=== PATIENT | female | born 1945 | race Caucasian/White ===

== ENCOUNTER 2023-05-10 21:12 | Emergency (ER) | payer MEDICARE, MEDICAID, SELFPAY ==
[2023-05-10 21:14] VITALS: BP 165/100; PULSE 79; RESP 18; TEMP 36.6; O2SAT 97; BMI 27.6
--- NOTE | 2023-05-10 21:33 | CT_ITS ---
INDICATION: Kidney Stone EXAMINATION: CT ABDOMEN AND PELVIS WITHOUT CONTRAST - CT Abdomen And Pelvis W/O Contrast Injection TECHNIQUE: Helically acquired images were obtained of the abdomen and pelvis without oral or IV contrast. A radiation dose optimization technique was used for this scan. IV Contrast dosage and agent: None. Oral contrast: None. COMPARISON: No relevant prior comparison studies available. FINDINGS: LOWER CHEST: Lung bases are clear. No cardiomegaly or pericardial effusion. Coronary artery calcifications. Posterior diaphragmatic defects, right left side with herniated fat into the thoracic cavity. LIVER: 4 mm hypodensity segment 6, periphery. Otherwise normal homogenous density throughout the liver. Size and contour. GALLBLADDER AND BILIARY TREE: 2, roughly 2 mm calcifications dependent gallbladder. No gallbladder distension or wall edema. No intra- or extrahepatic biliary ductal dilation. PANCREAS: No focal cystic or solid mass. SPLEEN: Normal size without focal cystic or solid mass. ADRENAL GLANDS: No nodules. KIDNEYS, URETERS and BLADDER: Normal renal size and position. No mass. Significant left-sided hydronephrosis from 10 mm obstructing stone proximal left ureter, ureteropelvic junction. Adjacent 4 mm stone is also present. More distally within the left ureter is a elongated ureteral stone measuring 6 mm in diameter and 1.4 cm in length. There is a nonobstructing, 12 x 10 mm stone mid left kidney and a 4 and 7 mm stone inferior pole left kidney. Moderate left-sided perinephric fatty stranding and questionable asymmetric mild left renal enlargement/edema. Right kidney shows no hydronephrosis however there is a nonobstructing, 2 mm stone mid lower pole right kidney. Bladder is unremarkable. PERITONEUM: No ascites or free air. No other fluid collection. BOWEL: No evidence of acute appendicitis. No abnormally distended bowel loops or air fluid levels. No wall thickening or mass. No focal inflammatory changes. Moderate diverticulosis sigmoid colon. LYMPH NODES: No enlarged mesenteric or retroperitoneal lymph nodes. VESSELS: Aorta is non-dilated. Moderate intimal calcifications. REPRODUCTIVE ORGANS: Absent or atrophic ABDOMINAL WALL: No discrete abdominal or pelvic wall hernia. BONES: No lytic or blastic abnormality. Moderately advanced degenerative disc and endplate changes L5-S1 and associated facet arthropathy. No severe central spinal canal stenosis suggested. CT/Abdomen/Pelvis without Cont IMPRESSION: 1. Nephrolithiasis with large, obstructing proximal and distal left ureteral stones resulting in moderate hydronephrosis, perinephric stranding density and suspected, mild asymmetric left renal edema. 2. Bilateral posterior diaphragmatic hernias with fat herniated into the thoracic cavity. No significant mass effect on the lungs. 3. Cholelithiasis without cholecystitis. 4. Diverticulosis without diverticulitis. Electronically Signed: Jamarcus Marlow DO at 23:21 EST ,
--- NOTE | 2023-05-10 21:35 | ED.VIS.GI ---
HPI HPI - GI History of Present Illness Chief Complaint: Flank Pain Narrative Narrative: 77-year-old female who denies significant past medical history although she states that she had a 19 mm right-sided kidney stone that was blasted by a urologist in [place] last year. She states that they left a kidney stone on the left. Today she began having left-sided flank pain more in her back that radiates towards the front. She denies any fevers or chills but states she became nauseated and vomited before she came. No dysuria or hematuria, although she may have had urinary frequency this morning. She states her symptoms began today, and she took an Aleve while at work which may have helped a small amount. She presents with her daughter because of the left-sided flank pain, with nausea and vomiting. No problems with bowel movements. [facility] Medical History Kidney stone Home Medications hydrocodone-acetaminophen 5-325mg 5mg-325mg 1 tab PO Q6H PRN PRN Pain 3 days #12 TABLETS 05/10/23 [Rx Last Taken Unknown] tamsulosin 0.4 mg capsule (Flomax) 0.4 mg PO QHS #10 caps 05/10/23 [Rx Last Taken Unknown] Allergy/AdvReac Type Severity Reaction Status Date / Time No Known Allergies Allergy Verified 05/10/23 21:16 Social History Smoking Status: Never smoker ROS ROS ED ROS Narrative Constitutional: No fever, no chills. HEENT: No sore throat. No neck pain. No loss of vision. No rhinorrhea. Cardiovascular: No chest pain. No palpitations. No pedal edema. Respiratory: No cough, no shortness of breath. Abdominal: No abdominal pain. Positive nausea. 1 episode of vomiting prior to arrival. No hematemesis. Genitourinary: No dysuria. No hematuria. Urinary frequency. Left-sided flank pain radiating towards front. Musculoskeletal: No myalgias. No arthralgias. Neurologic: No headaches. No dizziness. No lightheadedness. Skin: No rash. No change in color. Psychiatric: No depression. No anxiety. EXAM Physical Exam Narrative Exam Narrative: Focused physical examination reveals patient to be afebrile. Vital signs noted. Regular rate and rhythm. No murmurs, rubs, or gallops appreciated. Abdomen soft and nontender with normal active bowel sounds. No rebound, no guarding. Lungs clear to auscultation bilaterally. No CVA tenderness to percussion on the left. Neurological examination is nonfocal and nonlateralizing. Const Vital Signs: 05/10/23 21:14 Temperature 97.9 F Temperature Source Temporal Pulse Rate 79 Respiratory Rate 18 Blood Pressure 165/100 H Blood Pressure Mean 121 Pulse Ox 97 Oxygen Delivery Method Room Air MDM MDM MDM Narrative Medical decision making narrative: In the differential diagnosis is ureteral stone with ureteral colic versus diverticulitis versus musculoskeletal flank pain. Her history and physical does not necessarily support diverticulitis, and suspicion is higher for ureteral stone given her history. Patient with CBC, BMP, and UA will be checked. She declined stronger analgesics but will be given small dose of Toradol and ondansetron. IV fluids will be run at 250 mL/h. I do feel CT imaging is indicated. Urinalysis will be checked to help rule out UTI/pyelonephritis. Upon repeat examination at approximately 2310, patient is pain-free. I reviewed her laboratory work and she has a normal white count of 7.8, hemoglobin normal at 12.2, hematocrit 38.3, platelet count normal at 179. Review of her BMP shows normal sodium of 141, potassium 4.0, chloride slightly elevated at 110 which I think is nonspecific BUN elevated at 30 with a creatinine of 1.09, no prior with which to compare. Glucose is slightly elevated at 135 but she has a normal anion gap of 5. I have no concern for diabetic ketoacidosis. Urinalysis is negative for infection and negative for blood with 0-5 WBCs and 0-5 RBCs. I do not feel antibiotics are indicated. I reviewed the radiology report of the CT of the abdomen and pelvis without contrast. There are multiple stones in the left ureter causing hydronephrosis. There is a 10 mm stone at the left UPJ, with an adjacent 4 mm stone. More distal is a 6 mm diameter stone measuring 1.4 cm in length. Currently she is pain-free. I do not feel antibiotics are indicated as she does not have a urinary tract infection. I will write her a prescription for Flomax although she has multiple, lengthy stones, and for Percocet for the next 3 days. I discussed patient with Dr. Abraham with [facility] who agrees with close outpatient follow-up with Dr. Villa with whom she has an appointment later this week. I feel she can be discharged safely home with follow-up. Return instructions to the emergency department were reviewed. If she has fever, increased pain, new or worsening symptoms she should return to the emergency department. Patient is in agreement with the plan. Disposition is discharged home in stable condition. History & Record Review Discussion w/independent historian: Patient and Family Additional record(s) reviewed:: No prior records Lab Data Attestation: I reviewed the patient's lab results. Labs: Laboratory Results - last 24 hr 05/10/23 05/10/23 21:24 21:40 WBC 7.8 RBC 4.30 Hgb 12.2 Hct 38.3 MCV 89.1 MCH 28.4 MCHC 31.9 L RDW Std Deviation 45.1 H RDW Coeff of Juliana 13.9 Plt Count 179 MPV 10.1 Immature Gran % (Auto) 0.500 Neut % (Auto) 70.3 H Lymph % (Auto) 19.1 [place] % (Auto) 7.2 Eos % (Auto) 2.3 Baso % (Auto) 0.6 Absolute Neuts (auto) 5.5 Absolute Lymphs (auto) 1.49 Nucleated RBC % 0 Sodium 141 Potassium 4.0 Chloride 110 H Carbon Dioxide 26.0 Anion Gap 5 BUN 30 H Creatinine 1.09 H Estim Creat Clear Calc 37.92 Est GFR (MDRD) Af Amer 63 Est GFR (MDRD) Non-Af 52 L BUN/Creatinine Ratio 27.5 H Glucose 135 H Calcium 9.6 Urine Color Yellow Urine Clarity Cloudy Urine pH 7.0 Ur Specific [place] 1.015 Urine Protein Negative Urine Glucose (UA) Normal Urine Ketones Negative Urine Occult Blood 25 H Urine Nitrite Negative Urine Bilirubin Negative Urine Urobilinogen Normal Ur Leukocyte Esterase Negative Urine RBC 0-5 SEEN Urine WBC 0-5 SEEN Ur Squamous Epith Cells 0-5 SEEN Amorphous Sediment 2+ Urine Bacteria 0 SEEN Urine Mucus 0 SEEN Radiography Diagnostic Testing: Clinical Impression(s) from Imaging Studies Abdomen/Pelvis CT 05/10/23 21:33 IMPRESSION: 1. Nephrolithiasis with large, obstructing proximal and distal left ureteral stones resulting in moderate hydronephrosis, perinephric stranding density and suspected, mild asymmetric left renal edema. 2. Bilateral posterior diaphragmatic hernias with fat herniated into the thoracic cavity. No significant mass effect on the lungs. 3. Cholelithiasis without cholecystitis. 4. Diverticulosis without diverticulitis. Electronically Signed: Jamarcus Marlow, at 23:21 EST , Discharge Plan Triage Chief Complaint: Flank Pain ED Provider: Gonzalez Yañez Dx/Rx/DC Orders Clinical Impression: Hydronephrosis with urinary obstruction due to ureteral calculus, Ureteral calculi Instructions: ED Kidney Stone w/ Colic Prescriptions: New tamsulosin [Flomax] 0.4 mg capsule 0.4 mg PO QHS Qty: 10 0RF hydrocodone-acetaminophen 5-325 mg tablet 1 tab PO Q6H PRN PRN (Reason: Pain) 3 Days Qty: 12 0RF Primary Care Provider: Care Physician,No Primary Referrals: NOT,DEFINED [Non-Staff] - Activity Restrictions/Additional Instructions: Follow-up with Dr. Villa with urology as scheduled later this week. Return with fever, increased pain, new or worsening symptoms. Disposition Disposition: Home, Self Care
[2023-05-10 21:41] LABS: Bacteria 0 SEEN /hpf (None Seen); Mucous, Urine 0 SEEN /hpf (<or=2+)
[2023-05-10 21:42] LABS: Color, Urine Yellow (Yellow); Glucose, Dipstick Normal (Normal); Ketone-Dipstick Negative (Negative); Leukocyte Esterase-Dipstick Negative /ul (Negative); Nitrite-Dipstick Negative (Negative); Occult Blood-Urine 25 /ul (Negative); Protein-Dipstick Negative (Negative); Specific Gravity, Urine 1.015 (1.002-1.030); Urine Bilirubin Dipstick Negative (Negative); Urine Clarity Cloudy (Clear); Urine Urobilinogen Normal (Normal)
[2023-05-10] MEDS: Ondansetron 4 MG/2 ML Vial IV (21:42)
[2023-05-10] MEDS: Ketorolac 30 MG/ML Syringe 15 MG IV (21:42)
[2023-05-10] MEDS: 0.9% Normal Saline (1000mL) 1,000 ML 250 ML IV (21:44)
[2023-05-10 21:45] LABS: Absolute Lymphocyte Count 1.49 X10^3/uL (0.83-4.51); Absolute Neutrophil Count 5.5 X10^3/uL (2.0-7.7); Basophil# 0.05 X10^3/uL; Basophil% 0.6 % (0-1); Eosinophil# 0.18 X10^3/uL; Eosinophils% 2.3 % (0-5); Hematocrit 38.3 % (37-47); Hemoglobin 12.2 g/dL (12.0-15.0); Lymphocyte # 1.49 X10^3/ul (0.83-4.51); Lymphocyte % 19.1 % (19-41); Mean Corp Hgb Conc 31.9 g/dL (32-36); Mean Corpuscular Hgb 28.4 pg (27.0-32.0); Mean Corpuscular Volume 89.1 fL (81-99); Mean Platelet Vol. 10.1 fl (6.2-12.0); Monocyte# 0.56 X10^3/uL; Monocyte% 7.2 % (0-10); NRBC Flagged by Analyzer 0 % (0-5); Neutrophil % 70.3 % (47-70); Platelet Count 179 K/mm3 (150-450); RBC Distribution Width CV 13.9 % (11.6-14.6); RBC Distribution Width SD 45.1 fl (35.1-43.9); White Blood Count 7.8 K/mm3 (4.4-11.0)
[2023-05-10 21:51] LABS: Amorphous Sediment 2+; Red Blood Cells-Urine 0-5 SEEN /hpf (0-5); Squamous Epithelial Cells - UA 0-5 SEEN /hpf (5-10); White Blood Cells 0-5 SEEN /hpf (0-5)
[2023-05-10 21:58] LABS: Anion Gap 5 (5-15); BUN 30 mg/dL (7-18); BUN/Creat Ratio 27.5 RATIO (10-20); Calcium,Total 9.6 mg/dL (8.5-10.1); Chloride 110 mmol/L (98-107); Creatinine, Serum 1.09 mg/dL (0.55-1.02); EST Glomerular Filtration Rate 52 mL/min (>60); Est Glom Filt Rate - Afr Amer 63 mL/min (>60); Estimated Creatinine Clearance 37.92 ml/min; Glucose 135 mg/dL (74-106); Sodium Level 141 mmol/L (136-145)
[2023-05-10 23:51] VITALS: BP 142/77; PULSE 84; RESP 16; O2SAT 98
== END 2023-05-11 00:06 | disposition home or self-care (01) ==
PROVIDERS: Emergency Provider Emergency Medicine; Visit Provider Emergency Medicine
DX: N13.2 Hydronephrosis with renal and ureteral calculous obstruction (principal)
CPT/HCPCS: 74176; 80048; 81001; 85025; 96361; 96374; 96375; 99283; J7030; A4216; J2405

== ENCOUNTER → 2023-06-26 | Outpatient (CLI) | payer MEDICARE, MEDICAID, SELFPAY ==
--- NOTE | 2023-06-26 15:31 | RAD_ITS ---
EXAM: XR ABDOMEN, 1 VIEW CLINICAL INDICATION: STONES TECHNIQUE: Frontal supine view of the abdomen/pelvis. COMPARISON: 05/10/2023. FINDINGS: GASTROINTESTINAL TRACT: Mild to moderate colonic stool. Non-obstructive. No bowel or stomach distention. ORGANS: Calcific densities in the left hemiabdomen correlating with the previously demonstrated urolithiasis. One of the stones appears lower than the expected location of the kidney and/or renal pelvis and may be within the mid ureter. No organomegaly. BONES/JOINTS: Degenerative changes throughout the spine, SI joints, and bilateral hips. SOFT TISSUES: No acute pathology. VASCULATURE: Vascular calcifications. Phleboliths in the pelvis. RAD/Abdomen Single View IMPRESSION: Calcific densities in the left hemiabdomen correlating with the previously demonstrated urolithiasis. One of the stones appears lower than the expected location of the kidney and/or renal pelvis and may be within the mid ureter. Electronically Signed: Stephen Villanueva DO at 17:23 EST ,
--- OUTSIDE RECORDS SUMMARY | 2023-06-26 15:40 | XMS RPT_ITS | CCD ---
Author Name Unknown Address [address] [place] [address] Organization [facility] Care Team Providers Care Spool Sander Name Role Phone AUTUMN COHN PA-C Attending Unavailable PHYSICIAN, NONE Primary Care Unavailable No, Pcp Primary Care Provider Unavailabl e João Villa MD Unavailable [phone] Toansara ORDAZ Julianne A Unavailable [phone] João Villa MD Unavailable [phone] [facility] ORDAZ Julianne A Unavailable [phone] Suly Parker MD Primary Care Provider [phone] [facility] Primary Care Provider Unav kam Cage MD, Sandro Primary Care Provider [phone] Suly Parker MD Primary Care Provider Jasbir Hackett MD Primary Care Provider Sonny Schmitz MD Primary Care Provider Toan DO Julianne A Unavailable [phone] DEEPAK POTTS Attending Unavailable YIN, HANG Primary Care Unavailable YIN HANG Attending Unavailable YIN, HANG Primary Care Unavailable YIN, HANG Referring Unavailable NIYAH FREEMAN Attending Unavailable [facility] [facility] Primary Care Unavailable TOAN, JULIANNE Referring Unavailable YIN, HANG Primary Care Unavailable SARAH MCFARLANE Attending Unavailable YIN, HANG Primary Care Unavailable JOÃO VILLA Attending Unavailable [facility] [employer] [facility] Primary Care Unavailable TYESHA CARRASCO Attending Unavailable [facility] [employer] [facility] Primary Care Unavailable TOAN, JULIANNE Attending Unavailable TOAN, JULIANNE Admitting Unavailable SONNY SCHMITZ Primary Care Unavailable SULY PARKER Referring Unavailable SONNY SCHMITZ Attending Unavailable YIN, HANG Primary Care Unavailable TOAN, JULIANNE Referring Unavailable TOAN, JULIANNE Attending Unavailable SONNY SCHMITZ Primary Care Unavailable KEITH, GIN Referring Unavailable SONNY SCHMITZ Attending Unavailable KEITH, GIN Primary Care Unavailable KEITH, GIN Referring Unavailable MANGO AHUJA Attending Unavailable [facility] Unavailable SARAH MCFARLANE Attending Unavailable [facility], [facility] Unavailable SIDDHARTH MOSS Attending Unavailable [facility], [facility] Primary Care Unavailable MANGO AHUJA Attending Unavailable [facility], [facility] Unavailable JULIANNE JOYA Attending Unavailable [facility], [facility] Unavailable TYESHA CARRASCO Attending Unavailable LUIS ALFREDO BUTLER Attending Unavailable KIM MARTEL Admitting Unavailable REESE TAVERAS Unavailable [facility], [facility] Unavailable [facility], [facility] Unavailable JULIANNE JOYA Attending Unavailable JULIANNE JOYA Admitting Unavailable KEITH, GIN Primary Care Unavailable MANGO AHUJA Attending Unavailable Allergies Allergy Classification Reported Allergen(s) Allergy Type Date of Onset Reaction(s) Facility (20 sources) oxyCODONE Drug Allergy 07-17-2022 [facility] Medications Current Medications Medication Drug Class(es) Dates Sig (Normalized) Sig (Original) acetaminophen 325 mg / oxyCODONE hydrochloride 5 mg oral tablet (2 sources) Opioid Agonist Start: 05-25-2023 End: 05-30-2023 take 1 tablet by mouth every six hours as needed for pain oxyCODONE-acetaminop hen (Percocet) 5-325 MG tablet Indications: Kidney stone on left side Take 1 tablet by mouth every 6 hours as needed for severe pain (7-10) for up to 5 days. 15 tablet 0 05/25/2023 05/30/2023 Active B Complex-C (b complex-vitamin c) tablet (20 sources) take 1 tablet by mouth once daily B Complex-C (b complex-vitamin c) tablet Take 1 tablet by mouth daily. 0 Active Cholecalciferol (20 sources) Vitamin D Cholecalciferol (D3-1000 PO) Take by mouth. 0 Active Collagen (20 sources) COLLAGEN PO Take by mouth. 0 Active KRILL OIL PO (20 sources) KRILL OIL PO Brain e by mouth. 0 Active Magnesium (20 sources) MAGNESIUM PO Brain e by mouth. 0 Active 24 hr metoprolol succinate 50 mg extended release oral tablet (3 sources) beta-Adrenergic Kimberly Start: 07-23-2022 End: 07-23-2023 take 1 tablet by mouth once daily metoprolol succinate XL (Toprol-XL) 50 MG 24 hr tablet Take 1 tablet (50 mg) by mouth daily. Do not crush or chew. Do not start before July 23, 2022. 30 tablet 11 07/23/2022 07/23/2023 Active Multiple Vitamins-Minerals (ZINC PO) (20 sources) Multiple Vitamins-Minerals (ZINC PO) Take by mouth. 0 Active ondansetron 4 mg disintegrating oral tablet (2 sources) Serotonin-3 Receptor Antagonist Start: 05-25-2023 End: 06-01-2023 take 1 tablet by mouth every eight hours as needed for nausea and vomiting ondansetron ODT (Zofran-ODT) 4 MG disintegrating tablet Take 1 tablet (4 mg) by mouth every 8 hours as needed for nausea or vomiting for up to 7 days. 20 tablet 0 05/25/2023 06/01/2023 Active tamsulosin hydrochloride 0.4 mg oral capsule (9 sources) alpha-Adrenergic Kimberly Start: 05-11-2023 tamsulosin (Flomax) 0.4 MG 24 hr capsule Completed/Discontinued Medications Medication Drug Class(es) Dates Sig (Normalized) Sig (Original) benzonatate 200 mg oral capsule (4 sources) Non-narcotic Antitussive Start: 11-25-2022 End: 01-16-2023 take 1 capsule by mouth three times daily as needed for cough benzonatate (Tessalon) 200 MG capsule Indications: Chronic cough Take 1 capsule (200 mg) by mouth 3 times daily as needed for cough. Do not crush or chew. 42 capsule 3 11/25/2022 01/16/2023 Discontinued (Cost of medication) cephalexin 500 mg oral capsule (1 source) Cephalosporin Antibacterial Start: 05-18-2022 End: 06-29-2022 take 1 capsule by mouth once daily cephalexin (Keflex) 500 MG capsule Take 1 capsule (500 mg) by mouth daily. 30 capsule 1 05/18/2022 06/29/2022 Discontinued (Therapy completed) ferrous sulfate 325 mg oral tablet (20 sources) End: 03-06-2023 take 1 tablet by mouth once daily at breakfast ferrous sulfate 325 (65 Fe) MG tablet Take 325 mg by mouth daily (with breakfast). 0 03/06/2023 Discontinued hydrocortisone 10 mg/ml / neomycin 3.5 mg/ml / polymyxin b [id number] unt/ml otic suspension (14 sources) Aminoglycoside Antibacterial, Polymyxin-class Antibacterial, Corticosteroid Start: 11-15-2022 End: 02-14-2023 neomycin-polymyxi n-hydrocortisone (Cortisporin) 3.5-88700-2 otic suspension ibandronic acid 150 mg oral tablet (5 sources) Bisphosphonate Start: 06-08-2022 End: 09-15-2022 take 1 tablet by mouth every 30 days ibandronate (Boniva) 150 MG tablet Take 150 mg by mouth every 30 (thirty) days. 0 06/08/2022 09/15/2022 Discontinued (Reorder) oxybutynin chloride 5 mg oral tablet (1 source) Cholinergic Muscarinic Antagonist Start: 07-06-2022 End: 08-05-2022 take 1 tablet by mouth three times daily as needed for muscle spasms oxybutynin (Ditropan) 5 MG tablet Take 1 tablet (5 mg) by mouth 3 times daily as needed (urinary frequency, urgency, bladder spasms). 90 tablet 0 07/06/2022 08/05/2022 Problems Active Problems Problem Classification Problem Date Documented Da te Episodic/Chronic Cardiac dysrhythmias (20 sources) Paroxysmal atrial fibrillation; Translations: [Paroxysmal atrial fibrillation] Onset: 07-17-2022 08-05-2022 Chronic Complications of surgical procedures or medical care (1 source) Drug therapy finding; Translations: [Unspecified adverse effect of drug or medicament, initial encounter] 06-15-2023 Episodic Congestive heart failure; nonhypertensive (1 source) Diastolic heart failure; Translations: [Unspecified diastolic (congestive) heart failure] 11-24-2022 Chronic E Codes: Adverse effects of medical drugs (1 source) Terbinafine adverse reaction; Translations: [Adverse effect of antifungal antibiotics, systemically used, initial encounter] 04-05-2023 Episodic Genitourinary symptoms and ill-defined conditions (2 sources) Presence of urogenital implants; Translations: [Presence of urogenital implants] Onset: 07-17-2022 Chronic Malaise and fatigue (2 sources) Chronic fatigue, unspecified; Translations: [Chronic fatigue, unspecified] Onset: 10-25-2022 Chronic Osteoporosis (2 sources) Osteoporosis; Translations: [Age-related osteoporosis without current pathological fracture] 11-17-2022 Chronic Other and ill-defined heart disease (20 sources) Left ventricular cardiac dysfunction; Translations: [Heart disease, unspecified] Onset: 08-05-2022 08-05-2022 Chronic Other and ill-defined heart disease (2 sources) Heart disease, unspecified; Translations: [Heart disease, unspecified] Onset: 08-05-2022 Chronic Other diseases of kidney and ureters (2 sources) Hydronephrosis co-occurrent and due to calculus of kidney and ureter; Translations: [Hydronephrosis with renal and ureteral calculous obstruction] 05-24-2023 Episodic Other liver diseases (3 sources) Lesion of liver; Translations: [Liver disease, unspecified] 01-16-2023 Chronic Other liver diseases (2 sources) Liver disease, unspecified; Translations: [Liver disease, unspecified] Onset: 01-16-2023 Chronic Other lower respiratory disease (6 sources) Multiple nodules of lung; Translations: [Other nonspecific abnormal finding of lung field] 01-16-2023 Episodic Other lower respiratory disease (1 source) Chronic cough; Translations: [Chronic cough] 11-25-2022 Episodic Residual codes; unclassified (1 source) H/O: respiratory disease; Translations: [Personal history of other specified conditions] 02-27-2023 Episodic Spondylosis; intervertebral disc disorders; other back problems (3 sources) Acute low back pain; Translations: [Acute bilateral low back pain without sciatica] 01-16-2023 Episodic Unclassified (2 sources) Nephrolithiasis; Translations: [Nephrolithiasis] Onset: 05-24-2023 Unclassified (2 sources) Blood Work; Translations: [Blood Work] Onset: 03-16-2023 Unclassified (1 source) Low back pain, unspecified; Translations: [Low back pain, unspecified] Onset: 01-16-2023 Past or Other Problems Problem Classification Problem Date Documented Da te Episodic/Chronic Calculus of urinary tract (20 sources) Kidney stone; Translations: [Calculus of kidney] Onset: 05-17-2022 05-17-2022 Episodic Cardiac dysrhythmias (3 sources) Palpitations; Translations: [Palpitations] Onset: 08-05-2022 Episodic Conditions associated with dizziness or vertigo (4 sources) Benign paroxysmal positional vertigo; Translations: [Benign paroxysmal vertigo, right ear] Onset: 02-14-2023 02-14-2023 Episodic Deficiency and other anemia (2 sources) Anemia, unspecified; Translations: [Anemia, unspecified] Onset: 10-25-2022 Episodic Genitourinary symptoms and ill-defined conditions (20 sources) Dysuria; Translations: [Dysuria] Onset: 06-07-2022 Resolved: 07-29-2022 07-29-2022 Episodic Mycoses (12 sources) Onychomycosis; Translations: [Tinea unguium] Onset: 02-14-2023 02-14-2023 Episodic Other ear and sense organ disorders (20 sources) Does use hearing aid; Translations: [Presence of external hearing-aid] Onset: 07-29-2022 07-29-2022 Episodic Other ear and sense organ disorders (2 sources) Encounter for fitting and adjustment of hearing aid; Translations: [Encounter for fitting and adjustment of hearing aid] Onset: 07-29-2022 Episodic Other lower respiratory disease (7 sources) Hemoptysis; Translations: [Hemoptysis] Onset: 12-30-2022 11-16-2022 Episodic Other lower respiratory disease (2 sources) Other nonspecific abnormal finding of lung field; Translations: [Other nonspecific abnormal finding of lung field] Onset: 02-14-2023 Episodic Other lower respiratory disease (1 source) Hemoptysis; Translations: [Hemoptysis] Onset: 12-30-2022 Episodic Other nutritional; endocrine; and metabolic disorders (2 sources) Abnormal weight loss; Translations: [Abnormal weight loss] Onset: 12-30-2022 Episodic Other screening for suspected conditions (not mental disorders or infectious disease) (6 sources) Patient encounter status; Translations: [Encounter for screening for malignant neoplasm of colon] Onset: 11-16-2022 11-16-2022 Episodic Residual codes; unclassified (2 sources) Personal history of other specified conditions; Translations: [Personal history of other specified conditions] Onset: 03-06-2023 Episodic Residual codes; unclassified (2 sources) Acquired absence of other organs; Translations: [Acquired absence of other organs] Onset: 07-29-2022 Episodic Unclassified (1 source) Low back pain, unspecified; Translations: [Low back pain, unspecified] Onset: 01-16-2023 Urinary tract infections (20 sources) Recurrent urinary tract infection; Translations: [Urinary tract infection, site not specified] Onset: 05-17-2022 Resolved: 07-29-2022 06-07-2022 Episodic Results Test Name Value Interpretation Reference Range Facil ity Vital Signs Date Time Vital Sign Value Performing Clinician Faci lity 04-05-2023 15:18-0400 Body height 162.6 cm Clau Plasencia MD Work Phone: [employer] 04-05-2023 15:18-0400 Body mass index (BMI) [Ratio] 27.17 kg/m2 Clau Plasencia MD Work Phone: [facility] 04-05-2023 15:18-0400 Body temperature 97.59 [degF] Clau Plasencia MD Work Phone: [facility] 04-05-2023 15:18-0400 Body weight 71.8 kg Clau Plasencia MD Work Phone: [facility] 04-05-2023 15:18-0400 Diastolic blood pressure 75 mm[Hg] Clau Plasencia MD Work Phone: [facility] 04-05-2023 15:18-0400 Heart rate 73 /min Clau Plasencia MD Work Phone: [facility] 04-05-2023 15:18-0400 Systolic blood pressure 130 mm[Hg] Clau Plasencia MD Work Phone: [facility] 03-16-2023 15:58-0400 Body height 162.6 cm Erica Patrick MD Work Phone: [facility] 03-16-2023 15:58-0400 Body mass index (BMI) [Ratio] 27.62 kg/m2 Erica Patrick MD Work Phone: [facility] 03-16-2023 15:58-0400 Body temperature 97.7 [degF] Erica Patrick MD Work Phone: [facility] 03-16-2023 15:58-0400 Body weight 72.98 kg Erica Patrick MD Work Phone: [facility] 03-16-2023 15:58-0400 Diastolic blood pressure 64 mm[Hg] Erica Patrick MD Work Phone: [facility] 03-16-2023 15:58-0400 Heart rate 64 /min Erica Patrick MD Work Phone: [facility] 03-16-2023 15:58-0400 Systolic blood pressure 135 mm[Hg] Erica Patrick MD Work Phone: [facility] 03-06-2023 14:19-0400 Body height 163.8 cm Niyah Escalera CNP Work Phone: [facility] 03-06-2023 14:19-0400 Body mass index (BMI) [Ratio] 26.8 kg/m2 Niyah Escalera CNP Work Phone: [facility] 03-06-2023 14:19-0400 Body weight 71.94 kg Niyah Escalera CNP Work Phone: [facility] 03-06-2023 14:19-0400 Diastolic blood pressure 66 mm[Hg] Niyah Escalera CNP Work Phone: [facility] 03-06-2023 14:19-0400 Heart rate 80 /min Niyah Escalera CNP Work Phone: [facility] 03-06-2023 14:19-0400 Respiratory rate 18 /min Niyah Escalera CNP Work Phone: [facility] 03-06-2023 14:19-0400 SaO2% (BldA) [Mass fraction] 93 % Niyah Escalera CNP Work Phone: [facility] Encounters Encounter Date Encounter Type Care Provider Facility Start: 06-15-2023 Orders Only Clau seymour MD Work Phone: [facility] Infection Control Procedures Date Procedure Procedure Detail Performing Clinician Start: 02-15-2023 Us retroperitoneal real time w/image complete Julianne Stephen Toan DO Work Phone: Start: 11-30-2022 Basic metabolic panel calcium total Suly Parker MD Work Phone: Start: 08-06-2022 Ecg routine ecg w/least 12 lds w/i&r Reese Taveras MD Work Phone: Start: 07-29-2022 H/O: surgery History of right mastoidectomy Suly Parker MD Work Phone: Start: 07-29-2022 Adult depression screening assessment Mango Ahuja MD Work Phone: Plan of Treatment Date Care Activity Detail Author Start: 03-21-2024 Creatinine measurement Creatinine Le maria luz [facility] Start: 03-21-2024 Potassium measurement Potassium Leve l [facility] Start: 02-15-2024 Hepatitis A Vaccines (1 of 2 - Risk 2-dose series) Hepatitis A Vaccines (1 of 2 - Risk 2-dose series) [facility] Payers Date Payer Category Payer Unknown [id number] 2019 Medicare [id number] 2019 Private Health Insurance [id number] 1945 Unknown [id number] Social History Date Type Detail Facility Start: 06-29-2022 Tobacco smoking status NHIS Never sm oked tobacco [facility] Start: 06-29-2022 Tobacco use and exposure Smoke less tobacco non-user [facility] Start: 08-22-2022 End: 03-16-2023 Alcohol intake Lifetime non-drinker (finding) [facility] Start: 07-18-2022 End: 07-29-2022 History SDOH Alcohol Frequency 1 [facility] Start: 07-18-2022 History SDOH Alcohol Std Drinks 0 [facility] Start: 07-29-2022 History SDOH Financial 4 [facility] Start: 06-29-2022 History SDOH Transport Med 2 [facility] Start: 1945 Sex Assigned At Not on file [facility] Start: 08-12-2022 End: 03-06-2023 Exposure to SARS-CoV-2 (event) Not sure [facility] Start: 06-29-2022 End: 10-25-2022 History of Social function [facility] Start: 06-29-2022 End: 10-25-2022 Alcohol Use Disorder Identification Test - Consumption [AUDIT-C] [facility] How often to you hav e a drink containing alcohol? Monthly or less [facility] How many standard dr inks containing alcohol do you have on a typical day? 1 or 2 [facility] How often do you hav e 6 or more drinks on 1 occasion? Never [facility] How hard is it for y ou to pay for the very basics like food, housing, medical care, and heating Not very hard [facility] (I/We) worried [facility] er (my/our) food would run out before (I/we) got money to buy more. Never true [facility] In the past 12 month s, has lack of transportation kept you from medical appointments or from getting medications? No [facility] In the past 12 month s, was there a time when you were not able to pay the mortgage or rent on time? 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 unknown [facility] Medical Equipment Procedure Code Equipment Code Equipment Origin al Text Equipment Identifier Dates Stent Uret 6fr 2 4cm Wo Gw - Sn/A - [id number] Start: 07-06-2022 Stent Uret 6fr 2 4cm Wo Gw - [id number] , [id number] FDA Start: 08-16-2022 Clinical Notes 06-07-2022 to 06-15-2023 Clau Plasencia MD - 06/15/2023 11:42 AM ESTTelephone Encounter - Shital Le LPN - 06/15/2023 11:13 AM ESTTelephone Encounter - Shital Le LPN - 06/15/2023 11:13 AM ESTPatient Instructions Note Date & Type Note Facility 06-15-2023 History of Present illness Narrative Lab printed and faxed to requested location. Clau Plasencia MD 06/15/2023 11:49 AM documented in this encounter [facility] 06-15-2023 Telephone encounter Note Just order the Lab as you would for [facility] and I will print and fax. Thanks Shital Le LPN, on 06/15/23 at 11:13 AM. [facility] 06-15-2023 Miscellaneous Notes Just order the Lab as you would for [facility] and I will print and fax. Thanks Shital Le LPN, on 06/15/23 at 11:13 AM. Patient called stating that Dr. Plasencia wanted her to have Lab work done , due to taking Lamisil. Patient would like a Lab order faxed to [facility] in [place] fax no is [phone] Shital Le LPN, on 06/09/23 at 2:28 PM. documented in this encounter [facility] 06-09-2023 Telephone encounter Note Patient called stating that Dr. Plasencia wanted her to have Lab work done , due to taking Lamisil. Patient would like a Lab order faxed to [facility] in [place] fax no is [phone] Shital Le LPN, on 06/09/23 at 2:28 PM. [facility] 05-30-2023 Telephone encounter Note Spoke with pt that we are not contracted with [employer] and would be considered self pay - Pt states she is in [place] and will be follow up with [place] [facility] and did not want to schedule surgery due to insurance and distance. [facility] 05-30-2023 Miscellaneous Notes Spoke with pt that we are not contracted with [employer] and would be considered self pay - Pt states she is in [place] and will be follow up with [facility] [facility] and did not want to schedule surgery due to insurance and distance. ----- Message from João Villa MD sent at 05/24/2023 4:38 PM EST ----- Cystoscopy, left ureteroscopy, laser lithotripsy and stent documented in this encounter [facility] 05-30-2023 Telephone encounter Note ----- Message from João Villa MD sent at 05/24/2023 4:38 PM EST ----- Cystoscopy, left ureteroscopy, laser lithotripsy and stent [facility] 05-29-2023 Telephone encounter Note Daughter Gema called back to help get pt scheduled for surgery for kidney stones with DR Villa. Spoke with Nora Villa's automatic lump making machine tender who stated she will give Gema a call back. New Phone number [phone]. Routed message to Nora. [facility] 05-29-2023 Miscellaneous Notes Daughter Gema called back to help get pt scheduled for surgery for kidney stones with DR Villa. Spoke with Nora Villa's automatic lump making machine tender who stated she will give Gema a call back. New Phone number [phone]. Routed message to Nora. Pt returning a call to office. Read Aida's message verbatim to pt. Pt states she has some fatigue from traveling but overall feels fine. Pt voiced understanding to keep appt 05/24/[address] Villa in [place]. Attempted to speak to pt via telephone regarding recent visit to [place] [facility] 05/10/2023 and request for appointment 05/12/2023. Pt did not answer, and voicemail box is not setup. Please reach out to pt to see if she is doing well. Pt has appt 05/24/[address] Villa that she can keep, appt does not need to be moved up at this time. Thank you! Name of caller: Yash Contact phone number: [phone] Relationship to Patient: patient Provider: [facility]: Urology Chief Complaint/Reason for Call: patient called in stated that she should have an appointment today informed her of 05/24 appointment patient stated that was changed due to her recent time in the hospital informed I do not see another appointment for Dr. Bowman Patient would like a call back regarding appointment Best time of day caller can be reached: any Patient advised that office/PCP has 24-48 business hours to return their call: Yes documented in this encounter [facility] 05-24-2023 Note Addended by: JOÃO VILLA on: 05/25/2023 04:54 PM Modules accepted: [facility] 05-24-2023 History of Present illness Narrative Images from the original note were not included. João Villa MD 05/24/2023 at 4:41 PM Office follow up PATIENT NAME: Yash Francois DATE OF : 1945 TODAY'S DATE: 05/24/2023 CHIEF COMPLAINT: Chief Complaint Patient presents with Nephrolithiasis [address] Joya in [place] [facility] approx 2 weeks ago for stones Subjective: Ms. Francois is a 77 y.o. female who presents to the office for follow up of left ureteral and renal calculi She was in ER 2 weeks ago with flank pain and nausea She does have intermittent nausea and flank Review of Systems Constitutional: Negative for activity change, chills, fatigue and fever. Gastrointestinal: Negative for abdominal distention and abdominal pain. Genitourinary: Negative for difficulty urinating, dyspareunia, enuresis, urgency, vaginal bleeding, vaginal discharge and vaginal pain. Past Medical History: Past Medical History: Diagnosis Date Kidney stone Past Surgical History: Past Surgical History: Procedure Laterality Date COLONOSCOPY EXTRACORPOREAL SHOCK WAVE LITHOTRIPSY Left 07/06/2022 cystoscopy,retrograde pyelogram- dr. Joya HYSTERECTOMY KNEE ARTHROPLASTY Right 2015 OTHER SURGICAL HISTORY 08/16/2022 Cystoscopy with Left Ureteroscopy lithotripsy SKIN BIOPSY Allergies: Oxycodone Social History: Social History Socioeconomic History Marital status: Spouse name: Not on file Number of children: Not on file Years of education: Not on file Highest education level: Not on file Occupational History Not on file Tobacco Use Smoking status: Never Smokeless tobacco: Never Vaping Use Vaping Use: Never used Substance and Sexual Activity Alcohol use: Never Drug use: Not Currently Sexual activity: Not on file Other Topics Concern Not on file Social History Narrative Not on file Social Determinants of Health Financial Resource Strain: Low Risk (07/29/2022) Overall Financial Resource Strain (CARDIA) Difficulty of Paying Living Expenses: Not very hard Food Insecurity: No Food Insecurity (07/29/2022) Hunger Vital Sign Worried About Running Out of Food in the Last Year: Never true Ran Out of Food in the Last Year: Never true Transportation Needs: No Transportation Needs (06/29/2022) PRAPARE - Transportation Lack of Transportation (Medical): No Lack of Transportation (Non-Medical): No Physical Activity: Not on file Stress: Not on file Social Connections: Not on file Intimate Partner Violence: Not on file Housing Stability: Unknown (06/29/2022) Housing Stability Vital Sign Unable to Pay for Housing in the Last Year: No Number of Places Lived in the Last Year: Not on file Unstable Housing in the Last Year: No Family History: Medications Prior to Admission medications Medication Sig Start Date End Date Taking? Authorizing Provider B Complex-C (b complex-vitamin c) tablet Take 1 tablet by mouth daily. Yes Historical Provider, Cholecalciferol (D3-1000 PO) Take by mouth. Yes Historical Provider, COLLAGEN PO Take by mouth. Yes Historical Provider, Cyanocobalamin (B-12 PO) Take by mouth. Yes Historical Provider, KRILL OIL PO Take by mouth. Yes Historical Provider, MAGNESIUM PO Take by mouth. Yes Historical Provider, Multiple Vitamins-Minerals (ZINC PO) Take by mouth. Yes Historical Provider, terbinafine (LamISIL) 250 MG tablet Take 1 tablet (250 mg) by mouth daily. 05/18/23 06/29/23 Yes Clau Plasencia MD Vitamin E 100 units tablet Take by mouth. Yes Historical Provider, tamsulosin (Flomax) 0.4 MG 24 hr capsule 05/11/23 Historical Provider, Vitals: There were no vitals taken for this visit. Physical Exam General: alert, appears stated age, and cooperative Abdomen: soft and nondistended Back: straight, CVA tenderness absent : defer exam Labs: WBC Lab Results Component Value Date WBC 6.4 10/25/2022 BMP Lab Results Component Value Date NA 141 07/23/2022 K 3.4 (L) 07/23/2022 CL 113 (H) 07/23/2022 CO2 29 03/21/2023 BUN 24 03/21/2023 CREATININE 0.59 (L) 03/21/2023 GLUCOSE 119 (H) 03/21/2023 CALCIUM 9.9 03/21/2023 PSA No results found for: PSA UA Lab Results Component Value Date COLORU Yellow 07/18/2022 GLUCOSEU Normal 07/18/2022 UROBILINOGEN Normal 07/18/2022 BILIRUBINUR Negative 06/07/2022 Review: CT reviewed from [facility] I discussed the procedure of ureteroscopy. I discussed the risks, benefits and alternatives to this. I discussed the possible complications which could include bleeding, infection and stricture disease. I discussed the possible need for stenting. I explained the need for stent and duration will be determined at that time of surgery. A string may be left. I explained laser lithotripsy as well. I explained this and compared and contrasted it to other procedures such as ESWL and PCNL. She understands this and wishes to proceed forward. I explained the patinet about the ESWL procedure.I discussed possibility of stenting the ureter.I explained that We will try to fragment the stones with shock waves and the fragments have to pass by themselves. If stone doesnot fragment satisfactorily We may have to perform a repeat ESWL treatment or more invasive procedure to clear stone. Patient may see blood in urine and stone fragments may cause pain while passing. Sometimes the fragments donot pass and we have to perform a stenting or percutaneoous nephrostomy. The stone may harbor some infection which may exacerbate with the treatment causing UTI or sepsis. This may require IV antibiotics and admission. Rarely there is bleeding and hematoma which may require admission, blood transusion, or emergency radiologic angioembolization of kidney or removal of kidney. Patient verbalized the understanding of the above and has agreeed to undergo ESWL. Impression/Plan Diagnoses and all orders for this visit: Kidney stone on left side Dysuria Hydronephrosis with renal and ureteral calculous obstruction Will plan for left ureteroscopy and laser lithotripsy Will likely need staged surgery, and may need ESWL No follow-ups on file. João Villa MD 05/24/23 4:41 PM documented in this encounter [facility] 05-24-2023 History of Present illness Narrative Images from the original note were not included. João Villa MD 05/24/2023 at 4:41 PM Office follow up PATIENT NAME: Yash Francois DATE OF : 1945 TODAY'S DATE: 05/24/2023 CHIEF COMPLAINT: Chief Complaint Patient presents with Nephrolithiasis [address] Joya in August [place] [facility] approx 2 weeks ago for stones Subjective: Ms. Francois is a 77 y.o. female who presents to the office for follow up of left ureteral and renal calculi She was in ER 2 weeks ago with flank pain and nausea She does have intermittent nausea and flank Review of Systems Constitutional: Negative for activity change, chills, fatigue and fever. Gastrointestinal: Negative for abdominal distention and abdominal pain. Genitourinary: Negative for difficulty urinating, dyspareunia, enuresis, urgency, vaginal bleeding, vaginal discharge and vaginal pain. Past Medical History: Past Medical History: Diagnosis Date Kidney stone Past Surgical History: Past Surgical History: Procedure Laterality Date COLONOSCOPY EXTRACORPOREAL SHOCK WAVE LITHOTRIPSY Left 07/06/2022 cystoscopy,retrograde pyelogram- dr. Joya HYSTERECTOMY KNEE ARTHROPLASTY Right 2015 OTHER SURGICAL HISTORY 08/16/2022 Cystoscopy with Left Ureteroscopy lithotripsy SKIN BIOPSY Allergies: Oxycodone Social History: Social History Socioeconomic History Marital status: Spouse name: Not on file Number of children: Not on file Years of education: Not on file Highest education level: Not on file Occupational History Not on file Tobacco Use Smoking status: Never Smokeless tobacco: Never Vaping Use Vaping Use: Never used Substance and Sexual Activity Alcohol use: Never Drug use: Not Currently Sexual activity: Not on file Other Topics Concern Not on file Social History Narrative Not on file Social Determinants of Health Financial Resource Strain: Low Risk (07/29/2022) Overall Financial Resource Strain (CARDIA) Difficulty of Paying Living Expenses: Not very hard Food Insecurity: No Food Insecurity (07/29/2022) Hunger Vital Sign Worried About Running Out of Food in the Last Year: Never true Ran Out of Food in the Last Year: Never true Transportation Needs: No Transportation Needs (06/29/2022) PRAPARE - Transportation Lack of Transportation (Medical): No Lack of Transportation (Non-Medical): No Physical Activity: Not on file Stress: Not on file Social Connections: Not on file Intimate Partner Violence: Not on file Housing Stability: Unknown (06/29/2022) Housing Stability Vital Sign Unable to Pay for Housing in the Last Year: No Number of Places Lived in the Last Year: Not on file Unstable Housing in the Last Year: No Family History: Medications Prior to Admission medications Medication Sig Start Date End Date Taking? Authorizing Provider B Complex-C (b complex-vitamin c) tablet Take 1 tablet by mouth daily. Yes Historical Provider, Cholecalciferol (D3-1000 PO) Take by mouth. Yes Historical Provider, COLLAGEN PO Take by mouth. Yes Historical Provider, Cyanocobalamin (B-12 PO) Take by mouth. Yes Historical Provider, KRILL OIL PO Take by mouth. Yes Historical Provider, MAGNESIUM PO Take by mouth. Yes Historical Provider, Multiple Vitamins-Minerals (ZINC PO) Take by mouth. Yes Historical Provider, terbinafine (LamISIL) 250 MG tablet Take 1 tablet (250 mg) by mouth daily. 05/18/23 06/29/23 Yes Clau Plasencia MD Vitamin E 100 units tablet Take by mouth. Yes Historical Provider, tamsulosin (Flomax) 0.4 MG 24 hr capsule 05/11/23 Historical Provider, Vitals: There were no vitals taken for this visit. Physical Exam General: alert, appears stated age, and cooperative Abdomen: soft and nondistended Back: straight, CVA tenderness absent : defer exam Labs: WBC Lab Results Component Value Date WBC 6.4 10/25/2022 BMP Lab Results Component Value Date NA 141 07/23/2022 K 3.4 (L) 07/23/2022 CL 113 (H) 07/23/2022 CO2 29 03/21/2023 BUN 24 03/21/2023 CREATININE 0.59 (L) 03/21/2023 GLUCOSE 119 (H) 03/21/2023 CALCIUM 9.9 03/21/2023 PSA No results found for: PSA UA Lab Results Component Value Date COLORU Yellow 07/18/2022 GLUCOSEU Normal 07/18/2022 UROBILINOGEN Normal 07/18/2022 BILIRUBINUR Negative 06/07/2022 Review: CT reviewed from [place] Ureteroscopy I discussed the procedure of ureteroscopy. I discussed the risks, benefits and alternatives to this. I discussed the possible complications which could include bleeding, infection and stricture disease. I discussed the possible need for stenting. I explained the need for stent and duration will be determined at that time of surgery. A string may be left. I explained laser lithotripsy as well. I explained this and compared and contrasted it to other procedures such as ESWL and PCNL. She understands this and wishes to proceed forward. I explained the patinet about the ESWL procedure.I discussed possibility of stenting the ureter.I explained that We will try to fragment the stones with shock waves and the fragments have to pass by themselves. If stone doesnot fragment satisfactorily We may have to perform a repeat ESWL treatment or more invasive procedure to clear stone. Patient may see blood in urine and stone fragments may cause pain while passing. Sometimes the fragments donot pass and we have to perform a stenting or percutaneoous nephrostomy. The stone may harbor some infection which may exacerbate with the treatment causing UTI or sepsis. This may require IV antibiotics and admission. Rarely there is bleeding and hematoma which may require admission, blood transusion, or emergency radiologic angioembolization of kidney or removal of kidney. Patient verbalized the understanding of the above and has agreeed to undergo ESWL. Impression/Plan Diagnoses and all orders for this visit: Kidney stone on left side Dysuria Hydronephrosis with renal and ureteral calculous obstruction Will plan for left ureteroscopy and laser lithotripsy Will likely need staged surgery, and may need ESWL No follow-ups on file. João Villa MD 05/24/23 4:41 PM addendum Rx for percocet and zofran sent in documented in this encounter [facility] 05-24-2023 Miscellaneous Notes Addended by: JOÃO VILLA on: 05/25/2023 04:54 PM Modules accepted: Orders documented in this encounter [facility] 05-24-2023 Note Addended by: JOÃO VILLA on: 05/25/2023 04:54 PM Modules accepted: Orders [facility] 05-19-2023 Telephone encounter Note See documentation in the TE. [facility] 05-19-2023 Miscellaneous Notes See documentation in the TE. It is important for this patient to have her liver enzymes tested while being on this medication. Can we please have the patient scheduled for visit. Clau Plasencia MD 05/18/2023 5:43 PM Patient only has 1 dosage left Medication name: terbinafine (LamISIL) Medication dosage: 250 MG tablet Monthly quantity needed: 42 How many day supply requestin Medication route: oral (PO) Medication administration time(s): daily If taking medication PRN, reason for taking medication: N/A If this is a controlled substance do you receive this or any other controlled medication from any other doctor or facility: N/A Ordering provider: Dr Plasencia Date of last office visit: 04/05/23 Date of next office visit: 06/08/2023 Date of last refill: (see medication tab): 04/05/23 Updated/Validated preferred pharmacy: Yes Patient instructed to contact the pharmacy prior to picking up the medication: Yes documented in this encounter [facility] 05-19-2023 Telephone encounter Note Spoke with Gema and let her know the medication has been sent to the pharmacy. Also told her lab needs done and pt needs an appointment. She is not currently at home and will call back. [facility] 05-19-2023 Miscellaneous Notes Spoke with Gema and let her know the medication has been sent to the pharmacy. Also told her lab needs done and pt needs an appointment. She is not currently at home and will call back. I sent a refill to the pharmacy for this medication prior and requested an office visit so that LFTs can be monitored. Clau Plasencia MD 05/19/2023 11:01 AM S: Patient spoke with [facility] nurse regarding medication problem B: Onset of symptoms/concern last OV 04/05/23 A: Pt's daughter-Gema called concerned about running out of her medication for Toe nail fungus. Concerned about break in therapy. Labs were drawn on the day they were ordered, not able to see in EPIC. Confirmed follow up appt is 06/08/23 at 4:15pm with Dr. Ramirez. Pharmacy and allergies verified. R: Message sent to provider for review and recommendation. Attn office: please call Marta [phone] with provider's response. Patient understands care advice. No further needs at this time. Patient instructed to call back with new or worsening symptoms. Reason for Disposition [1] Caller has NON-URGENT medicine question about med that PCP prescribed AND [2] triager unable to answer question Protocols used: Medication Refill and Renewal [id number] documented in this encounter [employer] 05-19-2023 Telephone encounter Note I sent a refill to the pharmacy for this medication prior and requested an office visit so that LFTs can be monitored. Clau Plasencia MD 05/19/2023 11:01 AM [employer] Work Phone: 05-18-2023 Telephone encounter Note It is important for this patient to have her liver enzymes tested while being on this medication. Can we please have the patient scheduled for visit. Clau Plasencia MD 05/18/2023 5:43 PM [facility] 05-18-2023 Miscellaneous Notes It is important for this patient to have her liver enzymes tested while being on this medication. Can we please have the patient scheduled for visit. Clau Plasencia MD 05/18/2023 5:43 PM Patient only has 1 dosage left Medication name: terbinafine (LamISIL) Medication dosage: 250 MG tablet Monthly quantity needed: 42 How many day supply requestin Medication route: oral (PO) Medication administration time(s): daily If taking medication PRN, reason for taking medication: N/A If this is a controlled substance do you receive this or any other controlled medication from any other doctor or facility: N/A Ordering provider: Dr Plasencia Date of last office visit: 04/05/23 Date of next office visit: 06/08/2023 Date of last refill: (see medication tab): 04/05/23 Updated/Validated preferred pharmacy: Yes Patient instructed to contact the pharmacy prior to picking up the medication: Yes documented in this encounter [facility] 05-18-2023 Telephone encounter Note S: Patient spoke with [facility] nurse regarding medication problem B: Onset of symptoms/concern last OV 04/05/23 A: Pt's daughterGarrett called concerned about running out of her medication for Toe nail fungus. Concerned about break in therapy. Labs were drawn on the day they were ordered, not able to see in EPIC. Confirmed follow up appt is 06/08/23 at 4:15pm with Dr. Ramirez. Pharmacy and allergies verified. R: Message sent to provider for review and recommendation. Attn office: please call Marta [phone] with provider's response. Patient understands care advice. No further needs at this time. Patient instructed to call back with new or worsening symptoms. Reason for Disposition [1] Caller has NON-URGENT medicine question about med that PCP prescribed AND [2] triager unable to answer question Protocols used: Medication Refill and Renewal [id number] [facility] [employer] 05-16-2023 Telephone encounter Note Patient only has 1 dosage left Medication name: terbinafine (LamISIL) Medication dosage: 250 MG tablet Monthly quantity needed: 42 How many day supply requestin Medication route: oral (PO) Medication administration time(s): daily If taking medication PRN, reason for taking medication: N/A If this is a controlled substance do you receive this or any other controlled medication from any other doctor or facility: N/A Ordering provider: Dr Plasencia Date of last office visit: 04/05/23 Date of next office visit: 06/08/2023 Date of last refill: (see medication tab): 04/05/23 Updated/Validated preferred pharmacy: Yes Patient instructed to contact the pharmacy prior to picking up the medication: Yes [facility] [employer] 05-12-2023 Telephone encounter Note Pt returning a call to office. Read Aida's message verbatim to pt. Pt states she has some fatigue from traveling but overall feels fine. Pt voiced understanding to keep appt 05/24/[address] Villa in [place]. [facility] [employer] 05-12-2023 Miscellaneous Notes Pt returning a call to office. Read Aida's message verbatim to pt. Pt states she has some fatigue from traveling but overall feels fine. Pt voiced understanding to keep appt 05/24/[address] Villa in [place]. Attempted to speak to pt via telephone regarding recent visit to [place] ED 05/10/2023 and request for appointment 05/12/2023. Pt did not answer, and voicemail box is not setup. Please reach out to pt to see if she is doing well. Pt has appt 05/24/[address] Villa that she can keep, appt does not need to be moved up at this time. Thank you! Name of caller: Yash Contact phone number: [phone] Relationship to Patient: patient Provider: [facility]: [facility]rology Chief Complaint/Reason for Call: patient called in stated that she should have an appointment today informed her of 05/24 appointment patient stated that was changed due to her recent time in the hospital informed I do not see another appointment for Dr. Bowman Patient would like a call back regarding appointment Best time of day caller can be reached: any Patient advised that office/PCP has 24-48 business hours to return their call: Yes documented in this encounter [employer] 05-12-2023 Telephone encounter Note Attempted to speak to pt via telephone regarding recent visit to [place] ED 05/10/2023 and request for appointment 05/12/2023. Pt did not answer, and voicemail box is not setup. Please reach out to pt to see if she is doing well. Pt has appt 05/24/[address] Villa that she can keep, appt does not need to be moved up at this time. Thank you! [employer] Phone: 05-12-2023 Telephone encounter Note Name of caller: Yash Contact phone number: [phone] Relationship to Patient: patient Provider: [facility]: Urology Chief Complaint/Reason for Call: patient called in stated that she should have an appointment today informed her of 05/24 appointment patient stated that was changed due to her recent time in the hospital informed I do not see another appointment for Dr. Bowman Patient would like a call back regarding appointment Best time of day caller can be reached: any Patient advised that office/PCP has 24-48 business hours to return their call: Yes [facility] 05-10-2023 Telephone encounter Note Name of caller requesting page:[employer] Phone Number of caller: [phone] Facility requesting page: [place] [facility] Reason for Page: Requesting a doctor to doctor (Dr. Gonzalez Yañez) Provider paged: Dr. Abraham [facility] Name of paged provider: [facility] Page Placed to #: Secure Chat Time Page was sent or provider contacted: 11:35 pm Page Content: PAGED [facility] from [facility] for pt B. Francois 5 re doctor to doctor request (Dr. Gonzalez Yañez) [phone] [facility] 05-10-2023 Miscellaneous Notes Name of caller requesting page:[employer] Phone Number of caller: [phone] Facility requesting page: [facility] Reason for Page: Requesting a doctor to doctor (Dr. Gonzalez Yañez) Provider paged: Dr. Abraham Practice Name of paged provider: [facility] Page Placed to #: Secure Chat Time Page was sent or provider contacted: 11:35 pm Page Content: PAGED [facility] from [facility] for pt B. Francois 5. re doctor to doctor request (Dr. Gonzalez Yañez) [phone] documented in this encounter [facility] 04-05-2023 History of Present illness Narrative Patient was able to ambulate safely to the examination room. Provider was not notified of possible fall risk Pt asked if they have been to specialist,been in ER /hospitalized or had testing since last visit. no Images from the original note were not included. [facility] [address] [facility] [address] Dept: [phone] Dept Loc: [phone] Visit type: Established patient Reason for Visit: Nail Problem Assessment and Plan Comment: Patient was previously treated with terbinafine therapy with good response. Last dosage was 2 weeks ago restarting regimen for an additional 6 weeks. Follow-up l liver enzymes abs in 1 month. Plan: 1. Onychomycosis - terbinafine (LamISIL) 250 MG tablet; Take 1 tablet (250 mg) by mouth daily., arting Mon04/05/2023, Until Mon05/17/2023, Normal 2. Adverse effect of terbinafine - Hepatic function panel Patient was involved and agreeable in shared decision making. Follow up in about 1 month (around 05/06/2023) for Follow up in one month for liver panel labs and medication efficacy.. Subjective 77-year-old female presented to the [facility] for follow-up for onychomycosis treatment and liver enzyme results. Reported that terbinafine finished 2 weeks ago and this was the closest appointment that she could obtain. Since start of regimen patient is in significant improvement in the condition of her toenails. She reports that she tolerated medications with no issues. She also follows with pulmonary due to recent diagnosis of small lung nodules. Additionally she follows with renal in the setting of history of kidney stones. At the time of encounter patient denied headaches, blurred vision, dizziness, chest pain, chest tightness, abdominal pain, urinary or bowel habit changes. Patient has no other concerns for today. Review of Systems Constitutional: Negative for activity change, chills, fever and unexpected weight change. Respiratory: Negative for chest tightness and shortness of breath. Cardiovascular: Negative for leg swelling. Gastrointestinal: Negative for abdominal pain. Endocrine: Negative for cold intolerance and heat intolerance. Genitourinary: Negative for difficulty urinating. Neurological: Negative for dizziness, light-headedness and headaches. Hematological: Negative for adenopathy. Psychiatric/Behavioral: Negative for agitation. Medications reviewed Medical history reviewed Allergies reviewed Objective BP 130/75 Pulse 73 Temp 36.4 C (97.6 F) (Temporal) Ht 5' 4 (1.626 m) Wt 158 lb 4.8 oz (71.8 kg) BMI 27.17 kg/m Last 3 weights: Wt Readings from Last 3 Encounters: 04/05/23 158 lb 4.8 oz (71.8 kg) 03/16/23 160 lb 14.4 oz (73 kg) 03/06/23 158 lb 9.6 oz (71.9 kg) Last 3 BPs: BP Readings from Last 3 Encounters: 04/05/23 130/75 03/16/23 135/64 03/06/23 128/66 Last 3 HRs: Pulse Readings from Last 3 Encounters: 04/05/23 73 03/16/23 64 03/06/23 80 Physical Exam Constitutional: Appearance: Normal appearance. HENT: Head: Normocephalic and atraumatic. Eyes: Extraocular Movements: Extraocular movements intact. Conjunctiva/sclera: Conjunctivae normal. Cardiovascular: Rate and Rhythm: Normal rate and regular rhythm. Pulses: Normal pulses. Heart sounds: Normal heart sounds. No murmur heard. No friction rub. No gallop. Pulmonary: Effort: Pulmonary effort is normal. Breath sounds: Normal breath sounds. No wheezing, rhonchi or rales. Abdominal: General: Bowel sounds are normal. Musculoskeletal: Right foot: No swelling, bunion or bony tenderness. Normal pulse. Left foot: No swelling, bunion or bony tenderness. Normal pulse. Comments: Onychomycosis seen bilaterally, most prominent in the great toes and firs digit. Skin: General: Skin is warm. Capillary Refill: Capillary refill takes less than 2 seconds. Neurological: General: No focal deficit present. Mental Status: She is alert and oriented to person, place, and time. Psychiatric: Mood and Affect: Mood normal. Data Reviewed and Summarized Labs: Results for orders placed or performed in visit on 02/14/23 Comprehensive metabolic panel Result Value Ref Range GLUCOSE 119 (H) 65 - 99 mg/dL Urea Nitrogen (BUN) 24 7 - 25 mg/dL Creatinine 0.59 (L) 0.60 - 1.00 mg/dL EGFR 93 > OR = 60 mL/min/1.73m2 BUN/CREATININE RATIO 41 (H) 6 - 22 (calc) SODIUM 143 135 - 146 mmol/L POTASSIUM 4.2 3.5 - 5.3 mmol/L CHLORIDE 107 98 - 110 mmol/L Carbon Dioxide (CO2) 29 20 - 32 mmol/L CALCIUM 9.9 8.6 - 10.4 mg/dL PROTEIN, TOTAL - [facility] 6.7 6.1 - 8.1 g/dL ALBUMIN - [facility] 4.1 3.6 - 5.1 g/dL GLOBULIN - [facility] 2.6 1.9 - 3.7 g/dL (calc) ALBUMIN/GLOBULIN RATIO - [facility] 1.6 1.0 - 2.5 (calc) BILIRUBIN, TOTAL - [facility] 0.4 0.2 - 1.2 mg/dL ALKALINE PHOSPHATASE 62 37 - 153 U/L AST - [facility] 20 10 - 35 U/L ALT - [facility] 16 6 - 29 U/L Imaging/Testing: No recent imaging/testing reviewed Clau Plasencia MD [facility] 04/05/23 3:53 PM documented in this encounter [facility] 04-05-2023 History of Present illness Narrative Patient was able to ambulate safely to the examination room. Provider was not notified of possible fall risk Pt asked if they have been to specialist,been in ER /hospitalized or had testing since last visit. no Images from the original note were not included. [facility] [address] [facility] [address] Dept: [phone] Dept Loc: [phone] Visit type: Established patient Reason for Visit: Nail Problem Assessment and Plan Comment: Patient was previously treated with terbinafine therapy with good response. Last dosage was 2 weeks ago restarting regimen for an additional 6 weeks. Follow-up l liver enzymes abs in 1 month. Plan: 1. Onychomycosis - terbinafine (LamISIL) 250 MG tablet; Take 1 tablet (250 mg) by mouth daily., arting Mon04/05/2023, Until Mon05/17/2023, Normal 2. Adverse effect of terbinafine - Hepatic function panel Patient was involved and agreeable in shared decision making. Follow up in about 1 month (around 05/06/2023) for Follow up in one month for liver panel labs and medication efficacy.. Subjective 77-year-old female presented to the [facility] for follow-up for onychomycosis treatment and liver enzyme results. Reported that terbinafine finished 2 weeks ago and this was the closest appointment that she could obtain. Since start of regimen patient is in significant improvement in the condition of her toenails. She reports that she tolerated medications with no issues. She also follows with pulmonary due to recent diagnosis of small lung nodules. Additionally she follows with renal in the setting of history of kidney stones. At the time of encounter patient denied headaches, blurred vision, dizziness, chest pain, chest tightness, abdominal pain, urinary or bowel habit changes. Patient has no other concerns for today. Review of Systems Constitutional: Negative for activity change, chills, fever and unexpected weight change. Respiratory: Negative for chest tightness and shortness of breath. Cardiovascular: Negative for leg swelling. Gastrointestinal: Negative for abdominal pain. Endocrine: Negative for cold intolerance and heat intolerance. Genitourinary: Negative for difficulty urinating. Neurological: Negative for dizziness, light-headedness and headaches. Hematological: Negative for adenopathy. Psychiatric/Behavioral: Negative for agitation. Medications reviewed Medical history reviewed Allergies reviewed Objective BP 130/75 Pulse 73 Temp 36.4 C (97.6 F) (Temporal) Ht 5' 4 (1.626 m) Wt 158 lb 4.8 oz (71.8 kg) BMI 27.17 kg/m Last 3 weights: Wt Readings from Last 3 Encounters: 04/05/23 158 lb 4.8 oz (71.8 kg) 03/16/23 160 lb 14.4 oz (73 kg) 03/06/23 158 lb 9.6 oz (71.9 kg) Last 3 BPs: BP Readings from Last 3 Encounters: 04/05/23 130/75 03/16/23 135/64 03/06/23 128/66 Last 3 HRs: Pulse Readings from Last 3 Encounters: 04/05/23 73 03/16/23 64 03/06/23 80 Physical Exam Constitutional: Appearance: Normal appearance. HENT: Head: Normocephalic and atraumatic. Eyes: Extraocular Movements: Extraocular movements intact. Conjunctiva/sclera: Conjunctivae normal. Cardiovascular: Rate and Rhythm: Normal rate and regular rhythm. Pulses: Normal pulses. Heart sounds: Normal heart sounds. No murmur heard. No friction rub. No gallop. Pulmonary: Effort: Pulmonary effort is normal. Breath sounds: Normal breath sounds. No wheezing, rhonchi or rales. Abdominal: General: Bowel sounds are normal. Musculoskeletal: Right foot: No swelling, bunion or bony tenderness. Normal pulse. Left foot: No swelling, bunion or bony tenderness. Normal pulse. Comments: Onychomycosis seen bilaterally, most prominent in the great toes and firs digit. Skin: General: Skin is warm. Capillary Refill: Capillary refill takes less than 2 seconds. Neurological: General: No focal deficit present. Mental Status: She is alert and oriented to person, place, and time. Psychiatric: Mood and Affect: Mood normal. Data Reviewed and Summarized Labs: Results for orders placed or performed in visit on 02/14/23 Comprehensive metabolic panel Result Value Ref Range GLUCOSE 119 (H) 65 - 99 mg/dL Urea Nitrogen (BUN) 24 7 - 25 mg/dL Creatinine 0.59 (L) 0.60 - 1.00 mg/dL EGFR 93 > OR = 60 mL/min/1.73m2 BUN/CREATININE RATIO 41 (H) 6 - 22 (calc) SODIUM 143 135 - 146 mmol/L POTASSIUM 4.2 3.5 - 5.3 mmol/L CHLORIDE 107 98 - 110 mmol/L Carbon Dioxide (CO2) 29 20 - 32 mmol/L CALCIUM 9.9 8.6 - 10.4 mg/dL PROTEIN, TOTAL - [facility] 6.7 6.1 - 8.1 g/dL ALBUMIN - [facility] 4.1 3.6 - 5.1 g/dL GLOBULIN - [facility] 2.6 1.9 - 3.7 g/dL (calc) ALBUMIN/GLOBULIN RATIO - [facility] 1.6 1.0 - 2.5 (calc) BILIRUBIN, TOTAL - [facility] 0.4 0.2 - 1.2 mg/dL ALKALINE PHOSPHATASE 62 37 - 153 U/L AST - [facility] 20 10 - 35 U/L ALT - [facility] 16 6 - 29 U/L Imaging/Testing: No recent imaging/testing reviewed Sarah Mcfarlane MD [facility] 04/06/23 10:02 AM INDIRECT SUPERVISION THIS SERVICE IS TO BE BILLED UNDER THE PRIMARY CARE EXCEPTION ([facility] -) During or immediately after this visit, I discussed this case with the treating resident. Our discussion included the history obtained by the resident, the resident's exam findings, and the resident's treatment plan. The resident's note reflects the information we discussed, and I agree with the resident's assessment and treatment plan. documented in this encounter [facility] 03-27-2023 Note Needs appt for re-evaluation. [facility] 03-27-2023 Telephone encounter Note Patient called and scheduled an appointment on 04/05 AT 315PM [facility] 03-27-2023 Miscellaneous Notes Patient called and scheduled an appointment on 04/05 AT 315PM Needs appt for re-evaluation. Name of caller: Yash Contact phone number: [phone] Relationship to Patient: patient Provider: tiarra Oh: rony Chief Complaint/Reason for Call: Yash called stating her toe nail fungus is not cleared up and she has one pill left of the medication that he gave her. Please advise on refill or next steps . Best time of day caller can be reached: any Patient advised that office/PCP has 24-48 business hours to return their call: no documented in this encounter [facility] 03-27-2023 Telephone encounter Note Needs appt for re-evaluation. [facility] 03-27-2023 Telephone encounter Note Name of caller: Yash Contact phone number: [phone] Relationship to Patient: patient Provider: tiarra Practice: rony Chief Complaint/Reason for Call: Yash called stating her toe nail fungus is not cleared up and she has one pill left of the medication that he gave her. Please advise on refill or next steps . Best time of day caller can be reached: any Patient advised that office/PCP has 24-48 business hours to return their call: no [facility] 03-16-2023 History of Present illness Narrative Pt asked if they have been to specialist,been in ER /hospitalized or had testing since last visit. Yes lung doctor Patient was able to ambulate safely to the examination room. Provider was not notified of possible fall risk Images from the original note were not included. [facility] [address] [facility] [address] Dept: [phone] Dept Loc: [phone] Visit type: Established patient Reason for Visit: Blood Work (Went to get blood work and order was not there.) Assessment and Plan 1. Onychomycosis Comments: Will obtain CMP. Continue terbinafine for total 12 weeks. Normal liver function on initial CMP. Patient was involved and agreeable in shared decision making. Follow up in about 6 months (around 09/15/2023) for Next scheduled follow-up. Subjective Yash Francois is a 77 y.o. year old female presenting for follow-up for onychomycoses. Has not yet completed repeat CMP. Has had a toenail fungal infection for the past year. All 10 toenails were friable and discolored. Initially tried home remedies including tea tree oil however did not help. Currently treated with terbinafine for the past 4 weeks. Had a normal initial CMP. Repeat CMP placed at patient's request. No LOCKHART, vision changes, weakness. Patient was also seen at the lung nodule clinic for CT scan showing multiple nodules. Chronic smoker. States that clinic told her that her nodules were unremarkable and do not require further follow-up in their clinic. Objective BP 135/64 (BP Location: Right arm, Patient Position: Sitting) Pulse 64 Temp 36.5 C (97.7 F) (Temporal) Ht 5' 4 (1.626 m) Wt 160 lb 14.4 oz (73 kg) BMI 27.62 kg/m Physical Exam Vitals reviewed. Constitutional: Appearance: Normal appearance. HENT: Head: Normocephalic. Nose: Nose normal. Mouth/Throat: Pharynx: No oropharyngeal exudate or posterior oropharyngeal erythema. Eyes: Extraocular Movements: Extraocular movements intact. Pupils: Pupils are equal, round, and reactive to light. Cardiovascular: Rate and Rhythm: Normal rate and regular rhythm. Pulmonary: Effort: Pulmonary effort is normal. Breath sounds: Normal breath sounds. Abdominal: General: Bowel sounds are normal. Palpations: Abdomen is soft. Musculoskeletal: Right lower leg: No edema. Left lower leg: No edema. Skin: Comments: All 10 toenails with dystrophic discoloration. Neurological: Mental Status: She is alert. Erica Patrick MD [facility] 03/17/23 1:40 PM documented in this encounter [facility] 03-16-2023 History of Present illness Narrative Pt asked if they have been to specialist,been in ER /hospitalized or had testing since last visit. Yes lung doctor Patient was able to ambulate safely to the examination room. Provider was not notified of possible fall risk Images from the original note were not included. [facility] [address] [facility] [address] Dept: [phone] Dept Loc: [phone] Visit type: Established patient Reason for Visit: Blood Work (Went to get blood work and order was not there.) Assessment and Plan 1. Onychomycosis Comments: Will obtain CMP. Continue terbinafine for total 12 weeks. Normal liver function on initial CMP. Patient was involved and agreeable in shared decision making. Follow up in about 6 months (around 09/15/2023) for Next scheduled follow-up. Subjective Yash Francois is a 77 y.o. year old female presenting for follow-up for onychomycoses. Has not yet completed repeat CMP. Has had a toenail fungal infection for the past year. All 10 toenails were friable and discolored. Initially tried home remedies including tea tree oil however did not help. Currently treated with terbinafine for the past 4 weeks. Had a normal initial CMP. Repeat CMP placed at patient's request. No LOCKHART, vision changes, weakness. Patient was also seen at the lung nodule clinic for CT scan showing multiple nodules. Chronic smoker. States that clinic told her that her nodules were unremarkable and do not require further follow-up in their clinic. Objective BP 135/64 (BP Location: Right arm, Patient Position: Sitting) Pulse 64 Temp 36.5 C (97.7 F) (Temporal) Ht 5' 4 (1.626 m) Wt 160 lb 14.4 oz (73 kg) BMI 27.62 kg/m Physical Exam Vitals reviewed. Constitutional: Appearance: Normal appearance. HENT: Head: Normocephalic. Nose: Nose normal. Mouth/Throat: Pharynx: No oropharyngeal exudate or posterior oropharyngeal erythema. Eyes: Extraocular Movements: Extraocular movements intact. Pupils: Pupils are equal, round, and reactive to light. Cardiovascular: Rate and Rhythm: Normal rate and regular rhythm. Pulmonary: Effort: Pulmonary effort is normal. Breath sounds: Normal breath sounds. Abdominal: General: Bowel sounds are normal. Palpations: Abdomen is soft. Musculoskeletal: Right lower leg: No edema. Left lower leg: No edema. Skin: Comments: All 10 toenails with dystrophic discoloration. Neurological: Mental Status: She is alert. Erica Patrick MD [facility] 03/17/23 1:40 PM INDIRECT SUPERVISION THIS SERVICE IS TO BE BILLED UNDER THE PRIMARY CARE EXCEPTION ([facility]) During or immediately after this visit, I discussed this case with the treating resident. Our discussion included the history obtained by the resident, the resident's exam findings, and the resident's treatment plan. The resident's note reflects the information we discussed, and I agree with the resident's assessment and treatment plan. documented in this encounter [facility] 03-08-2023 Telephone encounter Note Pt LVM returning our call. Called pt and unable to LVM as mailbox is not set up. [facility] 03-08-2023 Miscellaneous Notes Pt LVM returning our call. Called pt and unable to LVM as mailbox is not set up. Called Yash at number listed below and there is no VM set up. Name of Caller: Yash Contact Phone Number: [phone] Reason for Appointment: Pt missed appt for 9.14 and would like to r/s appt. Please call her The appt was for *Follow up in about 6 months (around 02/22/2023) for stone follow up (KUB/CONSUELO prior). Office Name: urology Medication Refills need, if any: n/a Medication Name: n/a documented in this encounter [facility] 03-08-2023 Telephone encounter Note Called Yash at number listed below and there is no VM set up. [facility] 03-08-2023 Telephone encounter Note Name of Caller: Yash Contact Phone Number: [phone] Reason for Appointment: Pt missed appt for 9.14 and would like to r/s appt. Please call her The appt was for *Follow up in about 6 months (around 02/22/2023) for stone follow up (KUB/CONSUELO prior). Office Name: urology Medication Refills need, if any: n/a Medication Name: n/a [facility] 03-06-2023 History of Present illness Narrative [facility] [address] [address] Dept: [phone] Dept Visit type: Reason for Visit: New Patient History of Present Illness: HPI Yash Francois is a 77 y.o. female patient with significant PMH of Kidney Stones. Today, patient is fu to review and discuss CT Chest (12/2022) incidentally revealing multiple nodules in bilateral lungs measuring up to 2 mm. The imaging was completed because patient was experiencing hemoptysis. She was evaluated by PCP (11/2022) for hemoptysis and she c/o of weight loss. She is due for colonoscopy and referred to GI to completed. She completed chest xray which was negative for any acute abnormalities. She fu with PCP 01/2023 and per documentation hemoptysis resolved. Patient was referred to [facility]. There are no other images to compare. The patient reports that hemoptysis has resolved. When having hemoptysis she was coughing up it was streaks for blood. She was treated for ear infection when hemoptysis was occurring. Denies history of tobacco abuse. Denies personal history of cancer. Patient's paternal uncle had mouth cancer. Denies exposures to asbestos, radon, metals, toxic chemicals, or exotic. 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 Energy level is adequate. No night sweats or unintentional weight loss. Patient was having issues kidney stones and UTI and had weight loss. She reports sinus drainage that is triggered by sinus drainage. Denies fever/chills, wheezing, chest tightness, SOB, or chest pain. Past Medical History: Past Medical History: Diagnosis Date Kidney stone Social History: Social History Socioeconomic History Marital status: Tobacco Use Smoking status: Never Smokeless tobacco: Never Vaping Use Vaping Use: Never used Substance and Sexual Activity Alcohol use: Never Drug use: Not Currently Social Determinants of Health Financial Resource Strain: Low Risk (07/29/2022) Overall Financial Resource Strain (CARDIA) Difficulty of Paying Living Expenses: Not very hard Food Insecurity: No Food Insecurity (07/29/2022) Hunger Vital Sign Worried About Running Out of Food in the Last Year: Never true Ran Out of Food in the Last Year: Never true Transportation Needs: No Transportation Needs (06/29/2022) PRAPARE - Transportation Lack of Transportation (Medical): No Lack of Transportation (Non-Medical): No Housing Stability: Unknown (06/29/2022) Housing Stability Vital Sign Unable to Pay for Housing in the Last Year: No Unstable Housing in the Last Year: No Family History: No family history on file. ROS: Review of Systems Constitutional: Negative for activity change, fatigue and fever. HENT: Negative for congestion, postnasal drip and rhinorrhea. Respiratory: Positive for cough. Negative for chest tightness, shortness of breath and wheezing. Cardiovascular: Negative for chest pain, palpitations and leg swelling. Neurological: Negative for dizziness and headaches. Medications: @MEDCMED@ Allergies: Allergies Allergen Reactions Oxycodone Hives agitated Vital Signs: BP 128/66 (BP Location: Right arm, Patient Position: Sitting, BP Cuff Size: Adult) Pulse 80 Resp 18 Ht 5' 4.5 (1.638 m) Wt 158 lb 9.6 oz (71.9 kg) SpO2 93% Comment: RA BMI 26.80 kg/m Physical Exam: Physical Exam Vitals reviewed. Constitutional: General: She is not in acute distress. Appearance: Normal appearance. She is normal weight. HENT: Mouth/Throat: Pharynx: No oropharyngeal exudate or posterior oropharyngeal erythema. Eyes: Extraocular Movements: Extraocular movements intact. Cardiovascular: Rate and Rhythm: Regular rhythm. Heart sounds: No murmur heard. No friction rub. No gallop. Pulmonary: Effort: Pulmonary effort is normal. No accessory muscle usage, prolonged expiration or respiratory distress. Breath sounds: No stridor, decreased air movement or transmitted upper airway sounds. No decreased breath sounds, wheezing, rhonchi or rales. Comments: Lungs are clear and moving adequate air. No conversational dyspnea or respiratory distress. Chest: Chest wall: No tenderness. Neurological: Mental Status: She is alert. Assessment and Plan: Diagnosis Plan 1. Pulmonary nodules I reviewed imaging and there are multiple bilateral nodules measuring up to 2 mm. Patient is low risk and no occupational exposures. She is not experiencing any respiratory symptoms. Hemoptysis resolved. Per guidelines there is no indication to complete fu imaging. 2. History of hemoptysis Resolved. If develops again instructed to fu here or with PCP. Follow-up: Follow up if symptoms worsen or fail to improve. On this date, 03/06/2023 I have spent 25 minutes reviewing previous notes, test results and face to face with the patient discussing the diagnosis and importance of compliance with the treatment plan as well as documenting on the day of the visit. documented in this encounter [facility] 03-06-2023 Instructions Glenny Cazares MA - 03/06/2023 2:40 PM EDT YOUR APPOINTMENT TODAY WAS WITH THE [facility] LUNG [facility]ODULE [facility], COPD CLINIC, PULMONARY AND SLEEP MEDICINE OFFICE. PLEASE CALL OUR OFFICE AT [phone] IF YOU HAVE NOT RECEIVED YOUR TEST RESULTS 7 DAYS AFTER TESTING IS COMPLETED. PLEASE REMEMBER TO REQUEST REFILLS AT YOUR OFFICE VISITS. PHONE/FAX REQUESTS REQUIRE 48-72 HOURS FOR RESPONSE. A FRIENDLY REMINDER COPAYS ARE DUE AT TIME OF SERVICE. THANK YOU. Our Patients Are Important! We want to improve and you can help. After your visit we want you to feel: Listened to, Respected and have your health care explained. You may receive a survey asking you about your visit. Please complete the survey. We will use your feedback to make improvements. COVID-19 VACCINATION INFORMATION: PH. [phone] [email or web address] [facility] Central Scheduling [phone] [facility] Sleep Scheduling [phone] documented in this encounter [facility] 02-14-2023 Telephone encounter Note Returned phone call., voicemail not set up yet Gloria Anderson [facility] 02-14-2023 Miscellaneous Notes Returned phone call., voicemail not set up yet Gloria Anderson Preferred contact number: [phone] Reason for Visit: Pt started a new job and needs to cx and r/s appt for 02.23.23. Please call to r/s Urgency of Appointment: urology Medications in need of refill: n/a documented in this encounter [facility] 02-14-2023 History of Present illness Narrative Patient was able to ambulate safely to the examination room. Provider was not notified of possible fall risk Pt asked if they have been to specialist,been in ER /hospitalized or had testing since last visit. no Images from the original note were not included. [facility] [address] [facility] [address] Dept: [phone] Dept Loc: [phone] Visit type: Established patient Reason for Visit: Follow-up Assessment and Plan 1. Multiple lung nodules - [facility] 2. Benign paroxysmal positional vertigo of right ear - [facility] Physical Therapy Jany Wyatt 3. Onychomycosis - Comprehensive metabolic panel - terbinafine (LamISIL) 250 MG tablet; Take 1 tablet (250 mg) by mouth daily., Starting e 02/14/2023, Until Mon03/28/2023, Normal - CT showed multiple small lung nodule, chronic smoker. Lung nodule clinic referral sent. - BPPV, Vestibular therapy sent. - Onychomycosis, terbinafine x 6 weeks, followed by CMP in 4 weeks, normal liver function from last CMP. Patient was involved and agreeable in shared decision making. Follow up in about 6 weeks (around 03/28/2023) for onychomycosis . Subjective HPI Pt endorsed toe fungal infection for the past yr. Never asked for medical help. All 10 toes are friable and discolored. Pt also had a chronic history of vertigo with head movement. No LOCKHART, vision changes, weakness. Objective BP 121/67 Pulse 74 Temp (!) 35.8 C (96.4 F) (Temporal) Ht 5' 4.5 (1.638 m) Wt 158 lb 8 oz (71.9 kg) BMI 26.79 kg/m Physical Exam Vitals reviewed. Constitutional: Appearance: Normal appearance. HENT: Head: Normocephalic. Nose: Nose normal. Mouth/Throat: Pharynx: No oropharyngeal exudate or posterior oropharyngeal erythema. Eyes: Extraocular Movements: Extraocular movements intact. Pupils: Pupils are equal, round, and reactive to light. Cardiovascular: Rate and Rhythm: Normal rate and regular rhythm. Pulmonary: Effort: Pulmonary effort is normal. Breath sounds: Normal breath sounds. Abdominal: General: Bowel sounds are normal. Palpations: Abdomen is soft. Musculoskeletal: Right lower leg: No edema. Left lower leg: No edema. Skin: Comments: All 10 toes with dystrophic discolored nails. Neurological: Mental Status: She is alert. Sandro Cage MD [facility] 02/14/23 4:23 PM documented in this encounter [facility] 02-14-2023 History of Present illness Narrative Patient was able to ambulate safely to the examination room. Provider was not notified of possible fall risk Pt asked if they have been to specialist,been in ER /hospitalized or had testing since last visit. no Images from the original note were not included. [facility] [address] [facility] [address] Dept: [phone] Dept Loc: [phone] Visit type: Established patient Reason for Visit: Follow-up Assessment and Plan 1. Multiple lung nodules - [facility] 2. Benign paroxysmal positional vertigo of right ear - [facility] Jany Wyatt 3. Onychomycosis - Comprehensive metabolic panel - terbinafine (LamISIL) 250 MG tablet; Take 1 tablet (250 mg) by mouth daily., Starting e 02/14/2023, Until Mon03/28/2023, Normal - CT showed multiple small lung nodule, chronic smoker. Lung nodule clinic referral sent. - BPPV, Vestibular therapy sent. - Onychomycosis, terbinafine x 6 weeks, followed by CMP in 4 weeks, normal liver function from last CMP. Patient was involved and agreeable in shared decision making. Follow up in about 6 weeks (around 03/28/2023) for onychomycosis . Subjective HPI Pt endorsed toe fungal infection for the past yr. Never asked for medical help. All 10 toes are friable and discolored. Pt also had a chronic history of vertigo with head movement. No LOCKHART, vision changes, weakness. Objective BP 121/67 Pulse 74 Temp (!) 35.8 C (96.4 F) (Temporal) Ht 5' 4.5 (1.638 m) Wt 158 lb 8 oz (71.9 kg) BMI 26.79 kg/m Physical Exam Vitals reviewed. Constitutional: Appearance: Normal appearance. HENT: Head: Normocephalic. Nose: Nose normal. Mouth/Throat: Pharynx: No oropharyngeal exudate or posterior oropharyngeal erythema. Eyes: Extraocular Movements: Extraocular movements intact. Pupils: Pupils are equal, round, and reactive to light. Cardiovascular: Rate and Rhythm: Normal rate and regular rhythm. Pulmonary: Effort: Pulmonary effort is normal. Breath sounds: Normal breath sounds. Abdominal: General: Bowel sounds are normal. Palpations: Abdomen is soft. Musculoskeletal: Right lower leg: No edema. Left lower leg: No edema. Skin: Comments: All 10 toes with dystrophic discolored nails. Neurological: Mental Status: She is alert. Sandro Cage MD [facility] 02/14/23 4:23 PM Images from the original note were not included. INDIRECT SUPERVISION THIS SERVICE IS TO BE BILLED UNDER THE PRIMARY CARE EXCEPTION ([facility] -) During or immediately after this visit, I discussed this case with the treating resident. Our discussion included the history obtained by the resident, the resident's exam findings, and the resident's treatment plan. The resident's note reflects the information we discussed, and I agree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 attempts at approach: 1 Number of other approaches attempted: 0 [facility] 08-16-2022 Note Interval History and Physical I have interviewed and examined the patient and reviewed the recent History and Physical. There have been no changes to the recent H&P documentation. The patient understands the planned operation and its associated risks and benefits and agrees to proceed. The surgical consent form has been signed. BP (!) 144/74 Pulse 70 Temp 35.8 ?C (96.5 ?F) (Temporal) Resp 16 Ht 5' 4 (1.626 m) Wt 160 lb (72.6 kg) SpO2 97% BMI 27.46 kg/m? Impression: left renal and ureteral calculus and stent Plan: cysto left ureteroscopy with laser lithotripsy and stent change vs removal All aspects of the procedure, along with the pros & cons of intervention and the potential associated risks & complications have been discussed with the patient, any questions have been answered, and informed consent has been obtained. Electronically signed by @MEMDNR@ on @TDNR@ at @NOWNR@ H&P reviewed. The patient was examined and there are no changes to the H&P. [facility] 08-05-2022 History of Present illness Narrative Images from the original note were not included. [facility] Cardiology Office Note DATE of SERVICE: 08/05/22 TIME of SERVICE: 9:38 AM Reason for Visit: Chief Complaint Patient presents with Hospital Follow-up History ofPresent Illness: Yash Francois is a 76 y.o. female who presents in office today after her recent admission to [facility] 07/17/2022-07/23/2022. She had presented due to a UTI, recent kidney stone with ureteral stent, she experienced a bacteremia due to the infected stone. While admitted she was found to have gone into paroxysmal atrial fibrillation in which she is spontaneously converted to a normal sinus rhythm. Her A-fib was felt likely to be situational in the setting of her infection. It was decided not to initiate oral anticoagulation. She was initiated on Toprol XL 50 mg daily. While admitted she had an echocardiogram which documented a moderately reduced EF measured 40%, no significant valvular disease or wall motion abnormalities. This reduced EF was assessed while patient was infectious. I have ordered a repeat limited echo in 6 weeks for reassessment of her LV function when she has recovered from her UTI. She has been maintaining a normal sinus rhythm, denies symptoms of palpitations, shortness of breath, she tells me her energy continues to improve. She continues on antibiotics. She is well compensated. Past Medical History: Past Medical History: Diagnosis Date Kidney stone Past Surgical History Past Surgical History: Procedure Laterality Date COLONOSCOPY EXTRACORPOREAL SHOCK WAVE LITHOTRIPSY Left 07/06/2022 cystoscopy,retrograde pyelogram- dr. Joya HYSTERECTOMY KNEE ARTHROPLASTY Right 2016 SKIN BIOPSY Family History No family history on file. Social History Social History Tobacco Use Smoking status: Never Smokeless tobacco: Never Vaping Use Vaping Use: Never used Substance Use Topics Alcohol use: Never Drug use: Not Currently Allergies: Allergies Allergen Reactions Oxycodone Hives agitated Medications: Current Outpatient Medications: ibandronate (Boniva) 150 MG tablet, Take 150 mg by mouth every 30 (thirty) days., Disp: , Rfl: metoprolol succinate XL (Toprol-XL) 50 MG 24 hr tablet, Take 1 tablet (50 mg) by mouth daily. Do not crush or chew. Do not start before July 23, 2022., Disp: 30 tablet, Rfl: 11 COLLAGEN PO, Take by mouth., Disp: , Rfl: Cyanocobalamin (B-12 PO), Take by mouth., Disp: , Rfl: ferrous sulfate 325 (65 Fe) MG tablet, Take 325 mg by mouth daily (with breakfast)., Disp: , Rfl: MAGNESIUM PO, Take by mouth., Disp: , Rfl: Multiple Vitamins-Minerals (ZINC PO), Take by mouth., Disp: , Rfl: oxybutynin (Ditropan) 5 MG tablet, Take 1 tablet (5 mg) by mouth 3 times daily as needed (urinary frequency, urgency, bladder spasms). (Patient not taking: Reported on 08/05/2022), Disp: 90 tablet, Rfl: 0 tamsulosin (Flomax) 0.4 MG 24 hr capsule, Take 1 capsule (0.4 mg) by mouth daily. (Patient not taking: Reported on 08/05/2022), Disp: 30 capsule, Rfl: 2 Review of Systems: Review of Systems Constitutional: Negative for activity change, chills, diaphoresis, fatigue and fever. Pt states she is feeling improved, energy is slowly improving HENT: Negative for nosebleeds and trouble swallowing. Eyes: Negative for discharge and visual disturbance. Respiratory: Negative for apnea, cough, chest tightness, shortness of breath and wheezing. Denies SOB Cardiovascular: Negative for chest pain, palpitations and leg swelling. Denies chest pain or palpitations Gastrointestinal: Negative for abdominal distention, abdominal pain, blood in stool, diarrhea, nausea and vomiting. Endocrine: Negative for cold intolerance and heat intolerance. Genitourinary: Negative for hematuria. Musculoskeletal: Negative for gait problem and myalgias. Skin: Negative for color change and rash. Neurological: Negative for dizziness, seizures, syncope, facial asymmetry, speech difficulty, weakness, light-headedness, numbness and headaches. Hematological: Does not bruise/bleed easily. Psychiatric/Behavioral: Negative for dysphoric mood. Physical Examination: Vitals: BP 114/70 (BP Location: Left arm, Patient Position: Sitting, BP Cuff Size: Adult) Pulse 72 Resp 14 Ht 5' 4.5 (1.638 m) Wt 160 lb (72.6 kg) BMI 27.04 kg/m Body mass index is 27.04 kg/m . Physical Exam Constitutional: Appearance: Normal appearance. Comments: Pt is well compensated HENT: Head: Normocephalic. Nose: Nose normal. Eyes: General: Right eye: No discharge. Left eye: No discharge. Cardiovascular: Rate and Rhythm: Normal rate and regular rhythm. Heart sounds: No murmur heard. Comments: Regular, no murmer's present on exam Pulmonary: Effort: Pulmonary effort is normal. Breath sounds: Normal breath sounds. No wheezing or rales. Comments: Clear t/o Abdominal: General: There is no distension. Palpations: Abdomen is soft. Musculoskeletal: Right lower leg: No edema. Left lower leg: No edema. Comments: BLE are nonedematous Skin: General: Skin is warm and dry. Findings: No rash. Neurological: Mental Status: She is alert and oriented to person, place, and time. Psychiatric: Mood and Affect: Mood normal. Laboratory Tests: Lab Results Component Value Date GLUCOSE 100 07/23/2022 CALCIUM 9.0 07/23/2022 NA 141 07/23/2022 K 3.4 (L) 07/23/2022 CO2 24 07/23/2022 CL 113 (H) 07/23/2022 BUN 8 07/23/2022 CREATININE 0.48 (L) 07/23/2022 @LASTCMP@ No results found for: CHLPL, CHOL No results found for: TRIG No results found for: HDL No results found for: LDLCALC No results found for: VLDL No results found for: CHOLHDLRATIO Other Testing: Cardiac Tests: Echo (date: 07/19/2022): Left Ventricle: Left ventricle size is normal. Normal wall thickness. Moderately reduced left ventricular systolic function. The EF by visual approximation is 40%. Normal wall motion. Grade II diastolic dysfunction with increased LAP. Right Ventricle: Right ventricle size is normal. Normal systolic function. No significant valvular abnormalities. Technically difficult study. Assessment and Plan: 1. Paroxysmal atrial fibrillation-maintaining a normal sinus rhythm. It was felt her A-fib while admitted was likely situational in the setting of a UTI and bacteremia -If she were to have recurrent A-fib, would consider initiation of oral anticoagulation -She continues on Toprol XL 50 mg daily. 2. LV dysfunction-moderately reduced EF of 40% per echo July 19, completed well infectious and being treated for UTI-has been well compensated. I have ordered a repeat limited echo in 6 weeks for reassessment of her LV function -Continues on Toprol XL 50 mg daily. 3. Follow-up-3 months and as needed. Siddharth Moss APRN/ASSISTANT MANAGER PT documented in this encounter [facility] 08-05-2022 Miscellaneous Notes Addended by: SUZANNE LEROY on: 09/30/2022 09:37 AM Modules accepted: Orders documented in this encounter [facility] 08-05-2022 Note Addended by: SUZANNE SKINNER on: 09/30/2022 09:37 AM Modules accepted: Orders [facility] 07-29-2022 Note Patient: Yash forde Procedure Information Date/Time: 08/02/22 1200 Procedures: CYSTOSCOPY AND RETROGRADE PYELOGRAM, LEFT URETEROSCOPY LASER LITHOTRIPSY, LEFT URETERAL STENT CHANGE (Urethra) CYSTOSCOPY WITH URETEROSCOPY AND OR PYELOSCOPY WITH REMOVAL OR MANIPULATION CALCULUS WITH LITHOTRIPSY (Urethra) CYSTOSCOPY WITH INSERTION URETERAL STENT (Urethra) Location: [facility] OR [address] [place] [address] Operating Room Surgeons: Julianne Joya, DO Relevant Problems Cardio (+) Paroxysmal atrial fibrillation (CMS/HCC) (HCC) /Renal (+) Kidney stone on left side Past Medical History: Past Medical History: No date: Kidney stone Past Surgical History: Past Surgical History: No date: COLONOSCOPY 07/06/2022: EXTRACORPOREAL SHOCK WAVE LITHOTRIPSY; Left Comment: cystoscopy,retrograde pyelogram- dr. Joya No date: HYSTERECTOMY 2016: KNEE ARTHROPLASTY; Right No date: SKIN BIOPSY Social History: TOBACCO: reports that she has never smoked. She has never used smokeless tobacco. ETOH: reports no history of alcohol use. Social History Substance and Sexual Activity Drug Use Not Currently Family History: No family history on file. Screening: Hysterectomy Clinical information reviewed: Physical Exam Airway Mallampati: II TM distance: >3 FB Neck ROM: limited Mouth Open: normalendotracheal tube not in place Cardiovascular Dental Pulmonary Abdominal Anesthesia Plan ASA 3 general (Echo 07/17/2022 ? ? Left?Ventricle: Left ventricle size is normal. Normal wall thickness. Moderately reduced left ventricular systolic function. The EF by visual approximation is 40%. Normal wall motion. Grade II diastolic dysfunction with increased LAP. ? Right?Ventricle: Right ventricle size is normal. Normal systolic function. ? No significant valvular abnormalities. ? Technically difficult study. Previous OR 07/06 J[facility]ani No PAT) The patient is not a current smoker. Anesthetic plan and risks discussed with patient. patient is NPO Short ERAS BLAYNE Screening Labs: Lab Results Component Value Date WBC 5.8 07/23/2022 HGB 10.8 (L) 07/23/2022 HCT 32.7 (L) 07/23/2022 MCV 84.1 07/23/2022 PLT 177 07/23/2022 Lab Results Component Value Date NA 141 07/23/2022 K 3.4 (L) 07/23/2022 CL 113 (H) 07/23/2022 CO2 24 07/23/2022 BUN 8 07/23/2022 CREATININE 0.48 (L) 07/23/2022 GLUCOSE 100 07/23/2022 CALCIUM 9.0 07/23/2022 PROT 6.9 07/17/2022 ALKPHOS 75 07/17/2022 AST 26 07/17/2022 ALT 15 07/17/2022 EGFR >90.0 07/23/2022 Transthoracic echocardiogram (TTE) complete with contrast, bubble, strain, and 3D PRN Result Date: 07/19/2022 ? Left?Ventricle: Left ventricle size is normal. Normal wall thickness. Moderately reduced left ventricular systolic function. The EF by visual approximation is 40%. Normal wall motion. Grade II diastolic dysfunction with increased LAP. ? Right?Ventricle: Right ventricle size is normal. Normal systolic function. ? No significant valvular abnormalities. ? Technically difficult study. 07/17/22 ECG 12-LEAD 07/21/2022 10:10 AM (Final) Impression SINUS RHYTHM PROBABLE LEFT ATRIAL ABNORMALITY LVH WITH IVCD AND SECONDARY REPOL ABNRM CONSIDER ANTEROSEPTAL INFARCT Electronically Signed On 07-21-2022 10:10:18 EST by Jared Vickers Signed by: Jared Vickers MD on 07/21/2022 10:10 AM [facility] 07-23-2022 Note [facility] Hospitalist Discharge Summary Yash Francois : 1945 Admit date: 07/17/2022 Discharge date: 07/23/2022 Admitting Physician: Kim Martel MD Primary Care Physician: Pcp No (Inactive) Visit Status: Admission Code Status: Full Code Discharge Diagnoses: Left-sided nephrolithiasis with recent ureteral stent Proteus mirabilis UTI due to infected stone and bacteremia Severe sepsis due to above- high grade fever, tachycardia Osteoporosis Iron deficiency anemia Vitamin B12 deficiency Paroxysmal atrial fibrillation with frequent PVCs Procedures: None Hospital Course: Patient is a 76-year-old female who recently had lithotripsy and left ureteral stent placement admitted for fever chills and nausea. He has Proteus mirabilis UTI/infected stone and bacteremia associated with sepsis, admitted and treated with antibiotics and tailored to sensitivities of the urine. Urology followed the patient while in the hospital, patient had atrial fibrillation with rapid ventricular response, Lopressor was switched to Toprol, given IV fluids, encouraged oral intake, clinically improved, will continue antibiotic, will see the urologist as outpatient. Consults: Urology and cardiology Discharge Instructions: Diet: Adult diet Regular Activity: as tolerated Recommended Outpatient Tests: Disposition: Patient discharged in stable condition to Home. Greater than 30 minutes spent discharging the patient and coming up with patient discharge plan. Vitals: BP 119/75 (BP Location: Left arm, Patient Position: Lying) Pulse 74 Temp 36.9 ?C (98.4 ?F) (Temporal) Resp 18 Ht 5' 4 (1.626 m) Wt 161 lb (73 kg) SpO2 94% BMI 27.64 kg/m? Pulse Ox: SpO2 Av.5 % Min: 93 % Max: 94 % Supplemental O2: O2 Flow Rate (L/min): 2 L/min General appearance: No apparent distress, appears stated age and cooperative with exam Respiratory: Normal respiratory effort. Clear to auscultation, bilaterally without Rales/Wheezes/Rhonchi. Cardiovascular: irregular rate and rhythm with normal S1/S2 without murmurs, rubs or gallops. Abdomen: Soft, non-tender, non-distended with normal bowel sounds. No rebound or guarding. Musculoskeletal: No clubbing, cyanosis or edema bilaterally. Full range of motion without deformity. Skin: Skin color, texture, turgor normal. No rashes or lesions. Discharge Medications: Medication List START taking these medications cephalexin 500 MG capsule Commonly known as: Keflex Take 2 capsules (1,000 mg) by mouth 3 times daily for 10 days. metoprolol succinate XL 50 MG 24 hr tablet Commonly known as: Toprol-XL Take 1 tablet (50 mg) by mouth daily. Do not crush or chew. Do not start before July 23, 2022. oxybutynin 5 MG tablet Commonly known as: Ditropan Take 1 tablet (5 mg) by mouth 3 times daily as needed (urinary frequency, urgency, bladder spasms). CONTINUE taking these medications B-12 PO COLLAGEN PO ferrous sulfate 325 (65 Fe) MG tablet ibandronate 150 MG tablet Commonly known as: Boniva MAGNESIUM PO phenazopyridine 200 MG tablet Commonly known as: Pyridium Take 1 tablet (200 mg) by mouth 3 times daily as needed (burning with urination, urinary discomfort) for up to 10 days. tamsulosin 0.4 MG 24 hr capsule Commonly known as: Flomax Take 1 capsule (0.4 mg) by mouth daily. ZINC PO STOP taking these medications docusate sodium 100 MG capsule Commonly known as: Colace oxyCODONE 5 MG immediate release tablet Commonly known as: Roxicodone Where to Get Your Medications These medications were sent to [id number] - [facility] [address] [id number] cephalexin 500 MG capsule metoprolol succinate XL 50 MG 24 hr tablet phenazopyridine 200 MG tablet Recommended Follow-up: Siddharth Moss, STONE SPLITTER - ASSISTANT MANAGER PT [address], [address] [place] [address] Follow up on 08/05/2022 follow up hospital Cardiology appointment at 9:00 am. Complexity of Follow up: [] Moderate Complexity: follow up within 7-14 calendar days (29589) [x] Severe Complexity: follow up within 7 calendar days (77049) Follow up Testing, Pending results or Referrals at Transitional Care Visit: [x] yes [] No GENERAL ZONES GREEN ZONE: All Clear- Your Symptoms Are Under Control No recurrence of symptoms that led to hospitalization Able to do usual activities No fever No chest pain No shortness of breath This Means You Should: Continue taking your medications as prescribed Continue activity as tolerated Keep all doctor appointments YELLOW ZONE: Caution Recurrence of symptoms that led to hospitalization Fever of 100 degrees or higher Increased fatigue or restlessness Intolerant side-effects of medications Uneasy feeling or that something is wrong This Means You Should: Call your doctor for further instructions E (more content not included)... [facility] 07-22-2022 Note [facility] Hospitalist Progress Note 07/23/2022 Subjective: Admit Date: 07/17/2022 PCP: Pcp No (Inactive) Room#: B1-156/B1-156 A Interval History: Patient denies any flank pain, has few episodes of loose watery stools, CDIFF test ordered. Adult diet Regular @[id number]@ 24HR INTAKE/OUTPUT: No intake or output data in the 24 hours ending 07/23/22 1101 Past Medical History: Past Medical History: Diagnosis Date Kidney stone LABS: CBC: Recent Labs 07/21/2242107/22/22 0505 07/23/22 023 WBC 5.0 5.1 5.8 RBC 3.52* 3.62* 3.88 HGB 9.8* 10.1* 10.8* HCT 29.6* 30.3* 32.7* MCV 84.1 83.6 84.1 RDW 14.0 14.3 14.2 PLT 135* 144 177 BMP: Recent Labs 07/21/22 04207/22/22 0505 07/23/22 0231 NA 139 140 141 K 3.3* 3.6 3.4* CL 114* 116* 113* CO2 22 24 24 BUN 10 9 8 CREATININE 0.49* 0.50* 0.48* GLUCOSE 97 101* 100 CALCIUM 7.8* 8.2* 9.0 ANIONGAP 2* 0* 3 LIVER PROFILE:No results for input(s): AST, ALT, BILITOT, ALKPHOS, PROT in the last 72 hours. No lab exists for component: LABALBU PT/INR: No results for input(s): PROTIME, INR in the last 72 hours. CARDIAC ENZYMES: No results for input(s): TROPONINI in the last 72 hours. Procalcitonin: No results found for: PROCAL COVID-19 PCR: No results for input(s): COVID19 in the last 72 hours. Objective: Vitals: BP 119/75 (BP Location: Left arm, Patient Position: Lying) Pulse 74 Temp 36.9 ?C (98.4 ?F) (Temporal) Resp 18 Ht 5' 4 (1.626 m) Wt 161 lb (73 kg) SpO2 94% BMI 27.64 kg/m? Pulse Ox: SpO2 Av.5 % Min: 93 % Max: 94 % Supplemental O2: O2 Flow Rate (L/min): 2 L/min General appearance: No apparent distress, appears stated age and cooperative with exam HEENT: Normal cephalic, atraumatic without obvious deformity. Pupils equal, round, and reactive to light. Extra ocular muscles intact. Conjunctivae/corneas clear. Neck: Supple, with full range of motion. No jugular venous distention. Trachea midline. No lymphadenopathy. Respiratory: Normal respiratory effort. Clear to auscultation, bilaterally without Rales/Wheezes/Rhonchi. Cardiovascular: irregular rate and rhythm with normal S1/S2 without murmurs, rubs or gallops. Abdomen: Soft, Mild diffuse tenderness Musculoskeletal: No clubbing, cyanosis or edema bilaterally. Full range of motion without deformity, +2 peripheral pulses in all extremities. Skin: Skin color, texture, turgor normal. No rashes or lesions. Neurologic: Neurovascularly intact without any focal sensory/motor deficits. Cranial nerves: II-XII intact, grossly non-focal. Medications: Current Facility-Administered Medications: acetaminophen (Tylenol) tablet 650 mg, 650 mg, Oral, q6h PRN, 650 mg at 07/19/222027 OR acetaminophen (Tylenol) suppository 650 mg, 650 mg, Rectal, q6h PRN, Suha Coronado PA-C calcium carbonate-cholecalciferol (Oyster Shell) 250-3.125 MG-MCG per tablet 1 tablet, 1 tablet, Oral, BID, Velvet Isbell NP, 1 tablet at 07/23/221008 cephalexin (Keflex) capsule 1,000 mg, 1,000 mg, Oral, TID, Luis Alfredo Butler MD, 1,000 mg at 07/23/221008 enoxaparin (Lovenox) syringe 40 mg, 40 mg, SubCUTAneous, Daily, Suha Coronado PA-C, 40 mg at 07/23/221008 ferrous sulfate tablet 325 mg, 325 mg, Oral, Daily with breakfast, Suha Coronado PA-C, 325 mg at 07/23/221008 HYDROmorphone (Dilaudid) injection 0.5 mg, 0.5 mg, IntraVENous, q4h PRN, Suha Coronado PA-C loperamide (Imodium) capsule 2 mg, 2 mg, Oral, 4x daily PRN, Luis Alfredo Butler MD melatonin tablet 3 mg, 3 mg, Oral, Nightly PRN, Suha Coronado PA-C, 3 mg at 07/21/222002 metoprolol succinate XL (Toprol-XL) 24 hr tablet 50 mg, 50 mg, Oral, Daily, Siddharth Moss, STONE SPLITTER - ASSISTANT MANAGER PT, 50 mg at 07/23/221008 ondansetron ODT (Zofran-ODT) disintegrating tablet 4 mg, 4 mg, Oral, q8h PRN OR ondansetron (Zofran) injection 4 mg, 4 mg, IntraVENous, q6h PRN, Suha Coronado PA-C polyethylene glycol (PEG) 3350 (Miralax) packet 17 g, 17 g, Oral, Daily PRN, Suha Coronado PA-C sodium chloride 0.9 % infusion, 100 mL/hr, IntraVENous, Continuous, Suha Coronado PA-C, Last Rate: 100 mL/hr at 07/21/22 0102, 100 mL/hr at 07/21/22 0102 tamsulosin (Flomax) 24 hr capsule 0.4 mg, 0.4 mg, Oral, Daily, Suha Coronado PA-C, 0.4 mg at 07/23/22 1009 Assessment Left-sided nephrolithiasis with recent ureteral stent Proteus mirabilis UTI due to infected stone and bacteremia Severe sepsis due to above- high grade fever, tachycardia Osteoporosis Iron deficiency anemia Vitamin B12 deficiency Paroxysmal atrial fibrillation with frequent PVCs Medical Decision Making : Patient has Proteus mirabilis UTI, received ceftriaxone followed by cefazolin, now switched to oral cephalexin per ID stewardship recommendations Clinically improving, flank pain controlled, fever down, still continues to have low-grade fever Appreciate urology input await further recommendations CT abdomen and pelvis (more content not included)... [facility] 07-21-2022 Telephone encounter Note Message released to patient as written. Patient's further questions if applicable: N/A Were all questions from office addressed or relayed to the patient from encounter: Yes [facility] 07-21-2022 Miscellaneous Notes Message released to patient as written. Patient's further questions if applicable: N/A Were all questions from office addressed or relayed to the patient from encounter: Yes documented in this encounter [facility] 07-21-2022 Note ANGEL Arias ENVIRONMENTAL RESOURCE SPECIALIST 07/21/2022 at 12:06 PM Urology Progress Note PATIENT NAME: Yash Francois DATE OF : 1945 ADMISSION DATE: 07/17/2022 8:35 PM TODAY'S DATE: 07/21/2022 Subjective Sitting up in bed in NAD. No overnight events. Continues with low grade fever 99.3 this am. On IV Ancef. Will switch to keflex today at 1400. Denies fever, chills, SOB, n/v, constipation, urgency, frequency, dysuria, hematuria. Admits to diarrhea. Objective VS: BP 132/60 Pulse 67 Temp 37.4 ?C (99.3 ?F) (Temporal) Resp 18 Ht 5' 4 (1.626 m) Wt 161 lb (73 kg) SpO2 93% BMI 27.64 kg/m? I & O - 24hr: Intake/Output Summary (Last 24 hours) at 07/21/2022 1206 Last data filed at 07/21/2022 0617 Gross per 24 hour Intake 1402 ml Output -- Net 1402 ml Physical Exam: General: Neck: Resp: Abdomen: No acute distress Supple Normal effort Soft, non-tender, nondistended : No CVA tenderness Skin: Skin color, texture, turgor normal, no rashes or lesions Labs and Imaging Studies Labs: CBC: Recent Labs 07/19/22 0208 07/20/22 0447 07/21/22 0422 WBC 7.5 6.0 5.0 HGB 10.4* 10.2* 9.8* HCT 31.8* 30.5* 29.6* MCV 84.5 84.1 84.1 PLT 116* 126* 135* BMP: Recent Labs 07/19/22 1320 07/20/22 0447 07/21/22 0422 NA 139 139 139 K 3.6 3.7 3.3* CL 113* 116* 114* CO2 25 19* 22 BUN 15 11 10 CREATININE 0.63 0.51* 0.49* U/A: No results found for: NITRITE, LEUKOCYTESUR, PHUR, BACTERIA, SPECGRAV, BLOODU, GLUCOSEU, KETONESU Urine Culture: No components found for: LABURIN Blood Culture: + for proteus mirabilis Imaging Studies: ECG 12 lead SINUS RHYTHM PROBABLE LEFT ATRIAL ABNORMALITY LVH WITH IVCD AND SECONDARY REPOL ABNRM CONSIDER ANTEROSEPTAL INFARCT Electronically Signed On 07-21-2022 10:10:18 EST by Jared Vickers 07/20/2022 CT abdomen pelvis FINDINGS: Exam quality: This examination is limited for the evaluation of solid organs and vascular structures due to the lack of intravenous contrast. Chest base: Dependent atelectatic changes are seen in the lung bases, without consolidation or pleural effusion. Heart size is normal without a pericardial effusion. Liver: Normal size and contour. No identifiable lesion. Biliary tree: Normal caliber. The gallbladder is nondistended. Spleen: Normal. Adrenals: Normal. Pancreas: Normal. Kidneys: No contour abnormality or focal renal lesion. Renal collecting systems: Multiple left renal calculi measuring up to 8 mm. Mild left hydronephrosis. Status post left double-J ureteral stent placement. A 2 mm calculus is present in the left UPJ. Two punctate distal left ureteral calculi are also present along the stent. There is a punctate nonobstructive right renal calculus. Free fluid: Trace free pelvic fluid. Retroperitoneal/mesenteric lymphadenopathy: None. Bowel: Normal caliber bowel loops. Diverticuli are noted throughout the sigmoid colon. No stenotic lesion, mucosal thickening or adjacent fat stranding is noted to suggest diverticulitis. The appendix is not identified, however there is no pericecal fat stranding. Aorta: Atherosclerotic calcifications are seen in the aorta and its branches. The aorta is normal in caliber. Abdominal wall: Normal. Pelvic organs/viscera: No mass identified. Status post hysterectomy. Bladder: No calculi or filling defects. Pelvic lymphadenopathy: None. Osseous structures: Mild degenerative change of the visualized spine is noted. IMPRESSION: 1. Left ureteral stent placement with mild hydronephrosis. Left-sided urinary calculi including multiple renal calculi, a UPJ calculus and two punctate distal ureteral calculi. 2. Nonobstructive punctate right renal calculus. 3. Colonic diverticulosis. Assessment and Plan ASSESSMENT/PLAN: Left kidney stone - intervention on 07/06/22 for left eswl. - KUB on 07/17/22 shows left kidney stone and left distal ureteral calculus - 07/20/22 CT A/P revealed multiple stones along left ureter and 8 mm stone in left kidney. - will need additional surgery for stone removal on the left plan is for 08/02/22 - left ureteral stent intact. - urine culture negative for infection - blood cultures + for proteus mirabilis X2 receiving IV ancef - WBC wnl - creatinine WNL - febrile on 07/18/22 of 101.3 upon admission to the ER. - blood cultures redrawn yesterday. - plan for stone removal before PO antibiotics discontinued due to bacteremia. - discussed with Dr. Joya and plan for surgery on 08/02/22.patient is aware of this surgery. 2. Proteus bacteremia - medical service to follow and treat - will discuss with physician as to when to move forward with additional surgery for left kidney stone removal. -most likely bacteremia from her stone surgery with infected stone. - nausea resolved. - will go home on oral antibiotics. - temp this am of 99.3 On this date 07/21/2022 I have spent 25 minutes reviewing previous notes, test results and d (more content not included)... [facility] 07-21-2022 Note ANGEL Arias ENVIRONMENTAL RESOURCE SPECIALIST 07/21/2022 at 12:06 PM Urology Progress Note PATIENT NAME: Yash Francois DATE OF : 1945 ADMISSION DATE: 07/17/2022 8:35 PM TODAY'S DATE: 07/21/2022 Subjective Sitting up in bed in NAD. No overnight events. Continues with low grade fever 99.3 this am. On IV Ancef. Will switch to keflex today at 1400. Denies fever, chills, SOB, n/v, constipation, urgency, frequency, dysuria, hematuria. Admits to diarrhea. Objective VS: BP 132/60 Pulse 67 Temp 37.4 ?C (99.3 ?F) (Temporal) Resp 18 Ht 5' 4 (1.626 m) Wt 161 lb (73 kg) SpO2 93% BMI 27.64 kg/m? I & O - 24hr: Intake/Output Summary (Last 24 hours) at 07/21/2022 1206 Last data filed at 07/21/2022 0617 Gross per 24 hour Intake 1402 ml Output -- Net 1402 ml Physical Exam: General: Neck: Resp: Abdomen: No acute distress Supple Normal effort Soft, non-tender, nondistended : No CVA tenderness Skin: Skin color, texture, turgor normal, no rashes or lesions Labs and Imaging Studies Labs: CBC: Recent Labs 07/19/22 0208 07/20/2244607/21/22 042 WBC 7.5 6.0 5.0 HGB 10.4* 10.2* 9.8* HCT 31.8* 30.5* 29.6* MCV 84.5 84.1 84.1 PLT 116* 126* 135* BMP: Recent Labs 07/19/22 1320 07/20/2244607/21/22 042 NA 139 139 139 K 3.6 3.7 3.3* CL 113* 116* 114* CO2 25 19* 22 BUN 15 11 10 CREATININE 0.63 0.51* 0.49* U/A: No results found for: NITRITE, LEUKOCYTESUR, PHUR, BACTERIA, SPECGRAV, BLOODU, GLUCOSEU, KETONESU Urine Culture: No components found for: LABURIN Blood Culture: + for proteus mirabilis Imaging Studies: ECG 12 lead SINUS RHYTHM PROBABLE LEFT ATRIAL ABNORMALITY LVH WITH IVCD AND SECONDARY REPOL ABNRM CONSIDER ANTEROSEPTAL INFARCT Electronically Signed On 07-21-2022 10:10:18 EST by Jared Vickers 07/20/2022 CT abdomen pelvis FINDINGS: Exam quality: This examination is limited for the evaluation of solid organs and vascular structures due to the lack of intravenous contrast. Chest base: Dependent atelectatic changes are seen in the lung bases, without consolidation or pleural effusion. Heart size is normal without a pericardial effusion. Liver: Normal size and contour. No identifiable lesion. Biliary tree: Normal caliber. The gallbladder is nondistended. Spleen: Normal. Adrenals: Normal. Pancreas: Normal. Kidneys: No contour abnormality or focal renal lesion. Renal collecting systems: Multiple left renal calculi measuring up to 8 mm. Mild left hydronephrosis. Status post left double-J ureteral stent placement. A 2 mm calculus is present in the left UPJ. Two punctate distal left ureteral calculi are also present along the stent. There is a punctate nonobstructive right renal calculus. Free fluid: Trace free pelvic fluid. Retroperitoneal/mesenteric lymphadenopathy: None. Bowel: Normal caliber bowel loops. Diverticuli are noted throughout the sigmoid colon. No stenotic lesion, mucosal thickening or adjacent fat stranding is noted to suggest diverticulitis. The appendix is not identified, however there is no pericecal fat stranding. Aorta: Atherosclerotic calcifications are seen in the aorta and its branches. The aorta is normal in caliber. Abdominal wall: Normal. Pelvic organs/viscera: No mass identified. Status post hysterectomy. Bladder: No calculi or filling defects. Pelvic lymphadenopathy: None. Osseous structures: Mild degenerative change of the visualized spine is noted. IMPRESSION: 1. Left ureteral stent placement with mild hydronephrosis. Left-sided urinary calculi including multiple renal calculi, a UPJ calculus and two punctate distal ureteral calculi. 2. Nonobstructive punctate right renal calculus. 3. Colonic diverticulosis. Assessment and Plan ASSESSMENT/PLAN: Left kidney stone - intervention on 07/06/22 for left eswl. - KUB on 07/17/22 shows left kidney stone and left distal ureteral calculus - 07/20/22 CT A/P revealed multiple stones along left ureter and 8 mm stone in left kidney. - will need additional surgery for stone removal on the left plan is for 08/02/22 - left ureteral stent intact. - urine culture negative for infection - blood cultures + for proteus mirabilis X2 receiving IV ancef - WBC wnl - creatinine WNL - febrile on 07/18/22 of 101.3 upon admission to the ER. - blood cultures redrawn yesterday. - plan for stone removal before PO antibiotics discontinued due to bacteremia. - discussed with Dr. Joya and plan for surgery on 08/02/22.patient is aware of this surgery. 2. Proteus bacteremia - medical service to follow and treat - will discuss with physician as to when to move forward with additional surgery for left kidney stone removal. -most likely bacteremia from her stone surgery with infected stone. - nausea resolved. - will go home on oral antibiotics. - temp this am of 99.3 On this date 07/21/2022 I have spent 25 minutes reviewing previous notes, test results and d (more content not included)... [facility] 07-21-2022 Note SURGERY SCHEDULING PROCEDURE: cystoscopy retrograde pyelogram left ureteroscopy laser lithotripsy left ureteral stent change. DIAGNOSIS: left kidney and ureteral calculus FACILITY: [facility] DETAILS: OUTPT ANESTHESIA: GENERAL TIME REQUESTED: 1 HR DATE REQUESTED: 08/02/22 POST OP FOLLOW UP: cysto stent removal 1 wk REP REQUESTED: MEDICAL CLEARANCE: no CONFERENCE: NO COVID TESTING: NO Not on blood thinners Orders placed [facility] 07-21-2022 Note [facility] Hospitalist Progress Note 07/21/2022 Subjective: Admit Date: 07/17/2022 PCP: Pcp No (Inactive) Room#: B1-156/B1-156 A Interval History: Patient denies any flank pain or urinary pain today, continues to have low-grade fever Adult diet Regular @[id number]@ 24HR INTAKE/OUTPUT: Intake/Output Summary (Last 24 hours) at 07/21/2022 1046 Last data filed at 07/21/2022 0617 Gross per 24 hour Intake 1402 ml Output -- Net 1402 ml Past Medical History: Past Medical History: Diagnosis Date Kidney stone LABS: CBC: Recent Labs 07/19/22 0208 07/20/22 0447 07/21/22 0422 WBC 7.5 6.0 5.0 RBC 3.76* 3.63* 3.52* HGB 10.4* 10.2* 9.8* HCT 31.8* 30.5* 29.6* MCV 84.5 84.1 84.1 RDW 14.4 14.2 14.0 PLT 116* 126* 135* BMP: Recent Labs 07/19/22 1320 07/20/22 0447 07/21/22 0422 NA 139 139 139 K 3.6 3.7 3.3* CL 113* 116* 114* CO2 25 19* 22 BUN 15 11 10 CREATININE 0.63 0.51* 0.49* GLUCOSE 95 98 97 CALCIUM 8.1* 8.2* 7.8* ANIONGAP 0* 4 2* LIVER PROFILE:No results for input(s): AST, ALT, BILITOT, ALKPHOS, PROT in the last 72 hours. No lab exists for component: LABALBU PT/INR: No results for input(s): PROTIME, INR in the last 72 hours. CARDIAC ENZYMES: No results for input(s): TROPONINI in the last 72 hours. Procalcitonin: No results found for: PROCAL COVID-19 PCR: No results for input(s): COVID19 in the last 72 hours. Objective: Vitals: BP 132/60 Pulse 67 Temp 37.4 ?C (99.3 ?F) (Temporal) Resp 18 Ht 5' 4 (1.626 m) Wt 161 lb (73 kg) SpO2 93% BMI 27.64 kg/m? Pulse Ox: SpO2 Av.6 % Min: 89 % Max: 93 % Supplemental O2: O2 Flow Rate (L/min): 2 L/min General appearance: Alert no apparent distress, appears stated age and cooperative with exam HEENT: Normal cephalic, atraumatic without obvious deformity. Pupils equal, round, and reactive to light. Extra ocular muscles intact. Conjunctivae/corneas clear. Neck: Supple, with full range of motion. No jugular venous distention. Trachea midline. No lymphadenopathy. Respiratory: Normal respiratory effort. Clear to auscultation, bilaterally without Rales/Wheezes/Rhonchi. Cardiovascular: Regular rate and rhythm with normal S1/S2 without murmurs, rubs or gallops. Abdomen: Soft, non-tender, non-distended with normal bowel sounds. No rebound or guarding. Musculoskeletal: No clubbing, cyanosis or edema bilaterally. Full range of motion without deformity, +2 peripheral pulses in all extremities. Skin: Skin color, texture, turgor normal. No rashes or lesions. Neurologic: Neurovascularly intact without any focal sensory/motor deficits. Cranial nerves: II-XII intact, grossly non-focal. Medications: Current Facility-Administered Medications: acetaminophen (Tylenol) tablet 650 mg, 650 mg, Oral, q6h PRN, 650 mg at 07/19/222027 OR acetaminophen (Tylenol) suppository 650 mg, 650 mg, Rectal, q6h PRN, Suha Coronado PA-C calcium carbonate-cholecalciferol (Oyster Shell) 250-3.125 MG-MCG per tablet 1 tablet, 1 tablet, Oral, BID, Velvet Isbell NP, 1 tablet at 07/21/22 08 enoxaparin (Lovenox) syringe 40 mg, 40 mg, SubCUTAneous, Daily, Suha Coronado PA-C, 40 mg at 07/21/22 08 ferrous sulfate tablet 325 mg, 325 mg, Oral, Daily with breakfast, Suha Coronado PA-C, 325 mg at 07/21/22 0858 HYDROmorphone (Dilaudid) injection 0.5 mg, 0.5 mg, IntraVENous, q4h PRN, Suha Coronado PA-C melatonin tablet 3 mg, 3 mg, Oral, Nightly PRN, Suha Coronado PA-C metoprolol succinate XL (Toprol-XL) 24 hr tablet 50 mg, 50 mg, Oral, Daily, Siddharth Moss APRN - ASSISTANT MANAGER PT, 50 mg at 07/21/22 0858 ondansetron ODT (Zofran-ODT) disintegrating tablet 4 mg, 4 mg, Oral, q8h PRN OR ondansetron (Zofran) injection 4 mg, 4 mg, IntraVENous, q6h PRN, Suha Coronado PA-C polyethylene glycol (PEG) 3350 (Miralax) packet 17 g, 17 g, Oral, Daily PRN, Suha Coronado PA-C sodium chloride 0.9 % infusion, 100 mL/hr, IntraVENous, Continuous, Suha Coronado PA-C, Last Rate: 100 mL/hr at 07/21/22101, 100 mL/hr at 07/21/22 010 tamsulosin (Flomax) 24 hr capsule 0.4 mg, 0.4 mg, Oral, Daily, Suha Coronado PA-C, 0.4 mg at 07/21/22 0858 Assessment Left-sided nephrolithiasis with recent ureteral stent Proteus mirabilis UTI due to infected stone and bacteremia Severe sepsis due to above- high grade fever, tachycardia Osteoporosis Iron deficiency anemia Vitamin B12 deficiency Paroxysmal atrial fibrillation with frequent PVCs Medical Decision Making : Patient has Proteus mirabilis UTI, received ceftriaxone followed by cefazolin, now switched to oral cephalexin per ID stewardship recommendations Clinically improving, flank pain controlled, fever down, still continues to have low-grade fever Appreciate urology input await further recommendations CT abdomen and pelvis findings noted 1. Left ureteral stent placement with mild hydronephrosis. Left-sided urinary calculi including multiple renal calc (more content not included)... [facility] 07-20-2022 Note [facility] [place] [facility] [place]/ Electrophysiology Progress Note Assessment/Plan HF NYHA Class [x]I []II []III []IV Paroxysmal atrial fibrillation- maintaining a SR. Asymptomatic. - metoprolol tartrate changed to metoprolol succinate 50 mg daily - PAF felt likely to be situational in the setting of UTI, recent nephrolithiasis and ureteral stent, bacteremia due to the infected stone. Would not initiate OAC at this time. If pt has significant recurrence, would consider starting on OAC. 2. Frequent PVCs- remains asymptomatic - Echo completed this am with moderately reduced EF. Dr. Cox to re evaluate Echo. - EKG this afternoon, NSR 70's. HPI and Interval History: Pt states she is feeling well. Denies Cardiac complaints including chest discomfort, palpitations, or SOB. In good spirits. Scheduled Medications: calcium carbonate-cholecalciferol, 1 tablet, Oral, BID ceFAZolin, 1,000 mg, IntraVENous, q8h enoxaparin, 40 mg, SubCUTAneous, Daily ferrous sulfate, 325 mg, Oral, Daily with breakfast metoprolol succinate XL, 50 mg, Oral, Daily tamsulosin, 0.4 mg, Oral, Daily Infusion Medications: sodium chloride, 100 mL/hr, Last Rate: 100 mL/hr (07/20/22 1204) Physical Examination: Vitals: 07/19/22 2309 07/20/22 0321 07/20/22 0717 07/20/22 1157 BP: 102/53 (!) 110/49 130/67 127/70 BP Location: Right arm Right arm Right arm Patient Position: Lying Lying Lying Pulse: 69 74 68 74 Resp: 16 17 18 16 Temp: 37.4 ?C (99.3 ?F) 37.2 ?C (99 ?F) 37.4 ?C (99.4 ?F) 36.5 ?C (97.7 ?F) TempSrc: Temporal Temporal Temporal Temporal SpO2: 92% 90% 94% 93% Weight: Height: No intake or output data in the 24 hours ending 07/20/22 1221 Wt Readings from Last 3 Encounters: 07/19/22 161 lb (73 kg) 07/06/22 161 lb (73 kg) 06/29/22 161 lb (73 kg) Physical Exam Constitutional: Appearance: Normal appearance. Comments: Pt appears well compensated HENT: Head: Normocephalic. Nose: Nose normal. Eyes: General: Right eye: No discharge. Left eye: No discharge. Cardiovascular: Rate and Rhythm: Normal rate and regular rhythm. Heart sounds: No murmur heard. Comments: Regular, no murmer's present on exam, no JVD on exam Pulmonary: Effort: Pulmonary effort is normal. Breath sounds: Normal breath sounds. No wheezing or rales. Comments: Clear t/o Abdominal: General: There is no distension. Palpations: Abdomen is soft. Musculoskeletal: Right lower leg: No edema. Left lower leg: No edema. Comments: BLE are nonedematous Skin: General: Skin is warm and dry. Findings: No rash. Neurological: Mental Status: She is alert and oriented to person, place, and time. Psychiatric: Mood and Affect: Mood normal. Laboratory Tests: Recent Labs 07/18/22 0253 07/19/22 0135 07/19/22 0208 07/19/22 1320 07/20/22 0447 NA 137 136 138 139 139 K 3.3* 3.4* 3.3* 3.6 3.7 CL 110* 114* 112* 113* 116* CO2 22 20* 25 25 19* BUN 15 17 17 15 11 CREATININE 0.67 0.68 0.69 0.63 0.51* Recent Labs 07/17/22 2116 07/18/22 0253 07/19/22 0208 07/20/22 0447 WBC 7.3 8.3 7.5 6.0 HGB 12.8 10.9* 10.4* 10.2* HCT 39.5 32.9* 31.8* 30.5* MCV 85.0 84.8 84.5 84.1 PLT 201 153 116* 126* No results for input(s): CKTOTAL, CKMB, CKMBINDEX, TROPONINI in the last 72 hours. No results for input(s): BNP in the last 72 hours. No results for input(s): TRIG, HDL, LDLCALC, CHOL in the last 72 hours. No results found for: TSH EF BP Date Value Ref Range Status 07/19/2022 41 (A) 55 - 100 % Final Other reports reviewed: Cardiac Tests: EC07/20/2022- NSR- 70's Tracing reviewed. Telemetry findings reviewed: Not presently on telemetry monitored floor Last Echo: 07/17/22 TRANSTHORACIC ECHOCARDIOGRAM (TTE) COMPLETE (CONTRAST/BUBBLE/3D PRN) 07/19/2022 3:18 PM (Final) Interpretation Summary Left Ventricle: Left ventricle size is normal. Normal wall thickness. Moderately reduced left ventricular systolic function. The EF by visual approximation is 40%. Normal wall motion. Grade II diastolic dysfunction with increased LAP. Right Ventricle: Right ventricle size is normal. Normal systolic function. No significant valvular abnormalities. Technically difficult study. 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 Adult diet Regular @[id number]@ 24HR INTAKE/OUTPUT: No intake or output data in the 24 hours ending 07/20/22 1130 Past Medical History: Past Medical History: Diagnosis Date Kidney stone LABS: CBC: Recent Labs 07/18/22 0253 07/19/22 0208 07/20/22 0447 WBC 8.3 7.5 6.0 RBC 3.88 3.76* 3.63* HGB 10.9* 10.4* 10.2* HCT 32.9* 31.8* 30.5* MCV 84.8 84.5 84.1 RDW 14.1 14.4 14.2 PLT 153 116* 126* BMP: Recent Labs 07/19/22 0208 07/19/22 1320 07/20/22 0447 NA 138 139 139 K 3.3* 3.6 3.7 CL 112* 113* 116* CO2 25 25 19* BUN 17 15 11 CREATININE 0.69 0.63 0.51* GLUCOSE 113* 95 98 CALCIUM 7.6* 8.1* 8.2* ANIONGAP 1* 0* 4 LIVER PROFILE: Recent Labs 07/17/22 2116 AST 26 ALT 15 BILITOT 0.6 ALKPHOS 75 PROT 6.9 PT/INR: No results for input(s): PROTIME, INR in the last 72 hours. CARDIAC ENZYMES: No results for input(s): TROPONINI in the last 72 hours. Procalcitonin: No results found for: PROCAL COVID-19 PCR: No results for input(s): COVID19 in the last 72 hours. Objective: Vitals: BP 130/67 (BP Location: Right arm, Patient Position: Lying) Pulse 68 Temp 37.4 ?C (99.4 ?F) (Temporal) Resp 18 Ht 5' 4 (1.626 m) Wt 161 lb (73 kg) SpO2 94% BMI 27.64 kg/m? Pulse Ox: SpO2 Av.2 % Min: 90 % Max: 94 % Supplemental O2: O2 Flow Rate (L/min): 2 L/min General appearance: No apparent distress, appears stated age and cooperative with exam HEENT: Normal cephalic, atraumatic without obvious deformity. Pupils equal, round, and reactive to light. Extra ocular muscles intact. Conjunctivae/corneas clear. Neck: Supple, with full range of motion. No jugular venous distention. Trachea midline. No lymphadenopathy. Respiratory: Normal respiratory effort. Clear to auscultation, bilaterally without Rales/Wheezes/Rhonchi. Cardiovascular: Regular rate and rhythm with normal S1/S2 without murmurs, rubs or gallops. Abdomen: Soft, non-tender, non-distended with normal bowel sounds. No rebound or guarding. Musculoskeletal: No clubbing, cyanosis or edema bilaterally. Full range of motion without deformity, +2 peripheral pulses in all extremities. Skin: Skin color, texture, turgor normal. No rashes or lesions. Neurologic: Neurovascularly intact without any focal sensory/motor deficits. Cranial nerves: II-XII intact, grossly non-focal. Medications: Current Facility-Administered Medications: acetaminophen (Tylenol) tablet 650 mg, 650 mg, Oral, q6h PRN, 650 mg at 07/19/222027 OR acetaminophen (Tylenol) suppository 650 mg, 650 mg, Rectal, q6h PRN, Suha Coronado PA-C calcium carbonate-cholecalciferol (Oyster Shell) 250-3.125 MG-MCG per tablet 1 tablet, 1 tablet, Oral, BID, Velvet Isbell NP, 1 tablet at 07/20/22 08 ceFAZolin in dextrose (Ancef) IVPB 1,000 mg, 1,000 mg, IntraVENous, q8h, Luis Alfredo Butler MD enoxaparin (Lovenox) syringe 40 mg, 40 mg, SubCUTAneous, Daily, Suha Coronado PA-C, 40 mg at 07/20/22 0852 ferrous sulfate tablet 325 mg, 325 mg, Oral, Daily with breakfast, Suha Coronado PA-C, 325 mg at 07/20/22 0801 HYDROmorphone (Dilaudid) injection 0.5 mg, 0.5 mg, IntraVENous, q4h PRN, Suha Coronado PA-C melatonin tablet 3 mg, 3 mg, Oral, Nightly PRN, Suha Coronado PA-C metoprolol succinate XL (Toprol-XL) 24 hr tablet 50 mg, 50 mg, Oral, Daily, ANGEL Castro CNP, 50 mg at 07/20/22 0909 ondansetron ODT (Zofran-ODT) disintegrating tablet 4 mg, 4 mg, Oral, q8h PRN OR ondansetron (Zofran) injection 4 mg, 4 mg, IntraVENous, q6h PRN, Suha Coronado PA-C polyethylene glycol (PEG) 3350 (Miralax) packet 17 g, 17 g, Oral, Daily PRN, Suha Coronado PA-C sodium chloride 0.9 % infusion, 100 mL/hr, IntraVENous, Continuous, Suha Coronado PA-C, Last Rate: 100 mL/hr at 07/19/22 0645, 100 mL/hr at 07/19/22 0645 tamsulosin (Flomax) 24 hr capsule 0.4 mg, 0.4 mg, Oral, Daily, Suha Coronado PA-C, 0.4 mg at 07/20/22 0857 Assessment Left-sided nephrolithiasis with recent ureteral stent Proteus mirabilis UTI due to infected stone and bacteremia Severe sepsis due to above- high grade fever, tachycardia Osteoporosis Iron deficiency anemia Vitamin B12 deficiency Medical Decision Making : Patient admitted to CDU initially with fever, chills, nausea and bilateral flank pain, she recently had left-sided lithotripsy for renal stone on July [address] Joya, patient had above symptoms, possible infection from kidney stone, urology following the patient while in the hospital, patient on ceftriaxo (more content not included)... [facility] 07-20-2022 Note ANGEL Arias ENVIRONMENTAL RESOURCE SPECIALIST 07/20/2022 at 9:12 AM Urology Progress Note PATIENT NAME: Yash Francois DATE OF : 1945 ADMISSION DATE: 07/17/2022 8:35 PM TODAY'S DATE: 07/20/2022 Subjective Patient resting quietly in bed, NAD. Denies any overnight events. Denies fever, chills, nausea, vomiting, chest pain, SOB, urinary symptoms. VS stable. Admits appetite has improved since first admitted. Objective VS: BP 130/67 (BP Location: Right arm, Patient Position: Lying) Pulse 68 Temp 37.4 ?C (99.4 ?F) (Temporal) Resp 18 Ht 5' 4 (1.626 m) Wt 161 lb (73 kg) SpO2 94% BMI 27.64 kg/m? I & O - 24hr: No intake or output data in the 24 hours ending 07/20/22 0912 Physical Exam: General: Neck: Resp: Abdomen: No acute distress Supple Normal effort Soft, non-tender, nondistended, no CVA tenderness : N/A Skin: Skin color, texture, turgor normal, no rashes or lesions Labs and Imaging Studies Labs: CBC: Recent Labs 07/18/22 0253 07/19/22 0208 07/20/22 0447 WBC 8.3 7.5 6.0 HGB 10.9* 10.4* 10.2* HCT 32.9* 31.8* 30.5* MCV 84.8 84.5 84.1 PLT 153 116* 126* BMP: Recent Labs 07/19/22 0208 07/19/22 1320 07/20/22 0447 NA 138 139 139 K 3.3* 3.6 3.7 CL 112* 113* 116* CO2 25 25 19* BUN 17 15 11 CREATININE 0.69 0.63 0.51* U/A: Lab Results Component Value Date BLOODU 0.2 (A) 07/18/2022 GLUCOSEU Normal 07/18/2022 KETONESU Negative 07/18/2022 Urine Culture: No components found for: LABURIN Blood Culture: 07/17/22 + for proteus mirabilis Imaging Studies: ECG 12 lead SINUS RHYTHM MULTIPLE ATRIAL PREMATURE COMPLEXES PROBABLE LEFT ATRIAL ABNORMALITY CONSIDER ANTEROSEPTAL INFARCT ABNORMAL T, CONSIDER ISCHEMIA, LATERAL LEADS Compared to ECG 07/19/2022 01:16:59 Electronically Signed On 07-20-2022 7:20:16 EST by Iwona Bautista Assessment and Plan ASSESSMENT/PLAN: Left kidney stone - intervention on 07/06/22 for left eswl. - KUB on 07/17/22 shows left kidney stone and left distal ureteral calculus - will need additional surgery for stone removal on the left - left ureteral stent intact. - urine culture negative for infection - blood cultures + for proteus mirabilis X2 receiving IV rocephin. - WBC wnl - creatinine WNL - febrile on 07/18/22 of 101.3 upon admission to the ER. - blood cultures redrawn yesterday. - plan for stone removal before PO antibiotics discontinued due to bacteremia. - discussed with Dr. Abraham and he agreed with plan. - will need to cancel follow up in office for stent removal on 07/27/22 and plan for stone intervention in 7-10 days. 2. Proteus bacteremia - medical service to follow and treat - will discuss with physician as to when to move forward with additional surgery for left kidney stone removal. -most likely bacteremia from her stone surgery with infected stone. - nausea resolved. - will go home on oral antibiotics. - temp this am of 99.4 We will call with date and instructions for follow up surgery for left kidney stone removal. On this date, 07/20/2022 I have spent 25 minutes reviewing previous notes, and test results with the patient discussing the diagnosis and importance of compliance with the treatment plan as well as documenting on the day of the visit. --Jesus Allen CNP, APRN on 07/20/2022 at 9:12 AM An electronic signature was used to authenticate this note. I wore an N-95 mask during the entire visit with patient. Gloves were worn with physical contact of patient. [facility] 07-19-2022 Note Jesus Allen APRN - Louis ENVIRONMENTAL RESOURCE SPECIALIST 07/19/2022 at 10:59 AM Urology Progress Note PATIENT NAME: Yash Francois DATE OF : 1945 ADMISSION DATE: 07/17/2022 8:35 PM TODAY'S DATE: 07/19/2022 Subjective Resting quietly in bed. NAD no overnight events. Denies fever, chills, dysuria, urgency, frequency, hematuria. Appetite is better today. Objective VS: BP 106/63 Pulse 109 Temp 37.3 ?C (99.1 ?F) (Temporal) Resp 18 Ht 5' 4 (1.626 m) Wt 161 lb (73 kg) SpO2 97% BMI 27.64 kg/m? I & O - 24hr: No intake or output data in the 24 hours ending 07/19/22 1059 Physical Exam: General: Neck: Resp: Abdomen: No acute distress Supple Normal effort Soft, non-tender, nondistended : Voiding without difficulty. Skin: Skin color, texture, turgor normal, no rashes or lesions Labs and Imaging Studies Labs: CBC: Recent Labs 07/17/226 07/18/22 0253 07/19/22 0208 WBC 7.3 8.3 7.5 HGB 12.8 10.9* 10.4* HCT 39.5 32.9* 31.8* MCV 85.0 84.8 84.5 PLT 201 153 116* BMP: Recent Labs 07/18/223 07/19/22 0135 07/19/22 0208 NA 137 136 138 K 3.3* 3.4* 3.3* CL 110* 114* 112* CO2 22 20* 25 BUN 15 17 17 CREATININE 0.67 0.68 0.69 U/A: Lab Results Component Value Date BLOODU 0.2 (A) 07/18/2022 GLUCOSEU Normal 07/18/2022 KETONESU Negative 07/18/2022 Urine Culture: No components found for: LABURIN Blood Culture: 07/17/2022 Urine culture + for proteus mirabelis X2 Imaging Studies: ECG 12 lead Atrial fibrillation Ventricular premature complex Incomplete left bundle branch block Anterior Q waves, possibly due to ILBBB Compared to ECG 07/18/2022 07:06:37 Left bundle-branch block now present Sinus tachycardia no longer present Intraventricular conduction delay no longer present Left ventricular hypertrophy no longer present Early repolarization no longer present 07/18/2022 KUB FINDINGS: There is a left ureteral stent. Proximal coil is partly unwound, and is in the expected region of the renal pelvis. Distal coil is in the bladder. Multiple left renal calculi noted, partly obscured by gastric content, but largest is approximately 13 x 7.8 mm. There is another calculus in the renal pelvis on the left measuring about 5.7 x 4.6 mm. There are numerous phleboliths in the pelvis. A small grouping of calcifications in the left hemipelvis is noted along the ureteral stent, largest of these is about 4 mm in maximal size, and could represent ureteral calculi. Normal bowel gas pattern. IMPRESSION: 1. Left ureteral stent, proximal coil are show only an wound, in the region of the left renal pelvis. Left renal calculi. Possible distal ureteral calculi on the left. Assessment and Plan ASSESMENT/PLAN: Left kidney stone - intervention on 07/06/22 for left eswl. - KUB yesterday shows left kidney stones - will need additional surgery for stone removal on the left - left ureteral stent intact. - urine culture negative for infection - blood cultures + for proteus mirabilis X2 receiving IV rocephin. - WBC wnl - creatinine WNL - febrile yesterday of 103.1 upon admission to the ER. - will redraw blood cultures - will need close follow up with stone removal before discontinuing antibiotics. 2. Proteus bacteremia - medical service to follow and treat - will discuss with physician as to when to move forward with additional surgery for left kidney stone removal. -most likely from her stone surgery with infected stone. - nausea has improved. --Jesus Allen CNP, STONE SPLITTER on 07/19/2022 at 10:59 AM An electronic signature was used to authenticate this note. On this date 07/19/2022 I have spent 25 minutes reviewing previous notes, test results and discussing the diagnosis and importance of compliance with the treatment plan as well as documenting on the day of the visit. I wore an N-95 mask during the entire visit with patient. Gloves were worn with physical contact of patient. [facility] 07-19-2022 Note [facility] CARDIOL OGY CONSULTATION Patient Name: Yash Francois : 1945 Date of Service: 07/19/22 Reason for Consultation: A-fib History Yash Francois is a 76 y.o.year-old female admitted for fever, left flank pain and nausea after recent ureteral stent placement for a left kidney stone on 07/06/[address] Joya. KUB showed a left distal ureteral calculus with proximal coil. She is being treated for UTI and feeling better after fluids and antibiotics. Overnight she had frequent PVCs and went into atrial fibrillation. She states that she did not really feel palpitations or other symptoms. Prior to the current illness, she does have occasional sensation of her heart racing. This is infrequent and relatively brief. 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 She denies chest pain or shortness of breath with effort but has generally not felt well lately while trying to work. Impression and Recommendations Paroxysmal atrial fibrillation. Probably situational related to urinary tract infection. This morning she is regular around 90 bpm, difficult to tell from telemetry so we will get another twelve-lead EKG to see if she is back in sinus rhythm. Would be reasonable to give her low-dose beta-kimberly to avoid tachycardia possibly reduce ectopy. As A-fib was short-lived and possibly situational, will not initiate anticoagulation. If significant recurrence or echo suggests a chronic issue, consider anticoagulation. 2. Frequent ventricular ectopy. Similarly, may be secondary to acute illness. Does not have angina or heart failure symptoms. With this and the A-fib, it is reasonable to proceed with an echocardiogram. Correct electrolytes, low-dose beta-kimberly as above. Tavon Cox MD Data Collection Cardiac Testing: ECG 12-LEAD personally reviewed 05/16/2023 Sinus rhythm 05/17/2023 sinus with frequent PVCs, bigeminy 05/18/2023 A-fib with frequent PVCs Other Cardiac Imaging: N/A Past Medical History: has a past medical history of Kidney stone. SurgicalHistory: has a past surgical history that includes Skin biopsy; Knee Arthroplasty (Right, 2015); Hysterectomy; Colonoscopy; and Extracorporeal shock wave lithotripsy (Left, 07/06/2022). Social History: reports that she has never smoked. She has never used smokeless tobacco. She reports that she does not currently use drugs. She reports that she does not drink alcohol. Family History: Noncontributory due to age HomeMedications: Prior to Admission medications Medication Sig Start Date End Date Taking? Authorizing Provider COLLAGEN PO Take by mouth. Historical Provider, Cyanocobalamin (B-12 PO) Take by mouth. Historical Provider, docusate sodium (Colace) 100 MG capsule Take 1 capsule (100 mg) by mouth 2 times daily for 10 days. 07/06/22 07/16/22 Julianne Joya, ferrous sulfate 325 (65 Fe) MG tablet Take 325 mg by mouth daily (with breakfast). Historical Provider, ibandronate (Boniva) 150 MG tablet Take 150 mg by mouth every 30 (thirty) days. 06/08/22 Historical Provider, MAGNESIUM PO Take by mouth. Historical Provider, Multiple Vitamins-Minerals (ZINC PO) Take by mouth. Historical Provider, oxybutynin (Ditropan) 5 MG tablet Take 1 tablet (5 mg) by mouth 3 times daily as needed (urinary frequency, urgency, bladder spasms). Patient not taking: Reported on 07/17/2022 07/06/22 08/05/22 Julianne Joya DO phenazopyridine (Pyridium) 200 MG tablet Take 1 tablet (200 mg) by mouth 3 times daily as needed (burning with urination, urinary discomfort) for up to 10 days. 07/06/22 07/16/22 Julianne Joya DO tamsulosin (Flomax) 0.4 MG 24 hr capsule Take 1 capsule (0.4 mg) by mouth daily. 07/06/22 10/04/22 Julianne Joya DO Scheduled medications: cefTRIAXone, 2,000 mg, IntraVENous, q24h enoxaparin, 40 mg, SubCUTAneous, Daily ferrous sulfate, 325 mg, Oral, Daily with breakfast tamsulosin, 0.4 mg, Oral, Daily Allergies: Oxycodone Other relevant review of systems: Review of Systems All other systems reviewed and are negative. Physical Exam: Vitals: 07/18/22 1914 07/19/22 0105 07/19/22 0300 07/19/22 0817 BP: 107/65 106/62 106/63 BP Location: Right arm Right arm Patient Position: Lying Lying Pulse: 106 (!) 141 (!) 117 109 Resp: 18 18 Temp: 38 ?C (100.4 ?F) 37.7 ?C (99.8 ?F) 37.3 ?C (99.1 ?F) TempSrc: Oral Oral Temporal SpO2: 92% 90% 95% 97% Weight: Height: No intake or output data in the 24 hours ending 07/19/22 1045 Wt Readings from Last 4 Encounters: 07/17/22 161 lb (73 kg) 07/06/22 161 lb (73 kg) 06/29/22 161 lb (73 kg) 06/07/22 161 lb (73 kg) Physical Exam Vitals reviewed. Constitutional: General: She is not in acute distress. HENT: Head: Normocephalic. Eyes: General: No scleral icterus. Conjunctiva/sclera: Conjunctivae normal. Cardiovascular: Rate and Rhythm: Normal rate and regular rhythm. Heart sounds: No murmur heard. No gallop. Pulmonary (more content not included)... [facility] 07-19-2022 Note CDU Progress Note 07/19/2022 7:42 AM Subjective: Admit Date: 07/17/2022 PCP: Pcp No (Inactive) Interval History: Patient is feeling well this morning. Her appetite is returning. Denies any chest pain/pressure, SOB, nausea, vomiting, abdominal pain, flank pain, or dysuria. No fever or chills overnight. She does report feeling tired from lack of sleep, states her heart rate was doing something overnight and nurses were in and out of her room all night. Nursing reports that patient began having frequent PVCs overnight and a questionable run of v-tach. An EKG showed atrial fibrillation, this morning she has sawtooth waves on the monitor consistent with atrial flutter, this is new onset for her, she is asymptomatic at rest. Heart rates ranging 90's-140's, highly variable, with ectopy. 12 point ROS completed and negative unless noted in HPI. Adult diet Regular No intake or output data in the 24 hours ending 07/19/22 0742 Medications: sodium chloride, 100 mL/hr, Last Rate: 100 mL/hr (07/19/22 0645) calcium gluconate, 1,000 mg, IntraVENous, Once cefTRIAXone, 2,000 mg, IntraVENous, q24h enoxaparin, 40 mg, SubCUTAneous, Daily ferrous sulfate, 325 mg, Oral, Daily with breakfast potassium chloride CR, 40 mEq, Oral, Once tamsulosin, 0.4 mg, Oral, Daily LABS: Results for orders placed or performed during the hospital encounter of 07/17/22 Blood culture Specimen: Blood, Venous Result Value Ref Range Blood Culture Blood culture incubation started Blood culture Specimen: Blood, Venous Result Value Ref Range Blood Culture Gram-negative bacilli (AA) Urine culture Specimen: Urine, Clean Catch Result Value Ref Range Urine Culture Normal urogenital michael present Blood Culture Identification - Aerobic Specimen: Blood, Venous Result Value Ref Range Proteus species Detected (A) Not Detected Comprehensive metabolic panel Result Value Ref Range SODIUM 139 135 - 145 mmol/L POTASSIUM 3.7 3.5 - 5.1 mmol/L CHLORIDE 112 (H) 98 - 107 mmol/L CARBON DIOXIDE 25 22 - 30 mmol/L ANION GAP 3 3 - 13 mmol/L UREA NITROGEN 15 7 - 17 mg/dL CREATININE 0.69 0.52 - 1.04 mg/dL GLUCOSE 108 (H) 70 - 100 mg/dL CALCIUM 8.8 8.4 - 10.4 mg/dL AST (SGOT) 26 15 - 46 U/L ALT 15 0 - 34 U/L ALKALINE PHOSPHATASE 75 38 - 126 U/L ALBUMIN 3.7 3.5 - 5.0 g/dL BILIRUBIN, TOTAL 0.6 0.2 - 1.3 mg/dL TOTAL PROTEIN 6.9 6.3 - 8.2 g/dL eGFR >90.0 >60.0 mL/min/1.73m*2 CBC auto differential Result Value Ref Range Auto WBC 7.3 3.6 - 10.7 10*3/uL RBC 4.64 3.8 - 5.20 10*6/uL Hemoglobin 12.8 11.7 - 16.0 g/dL Hematocrit 39.5 35.0 - 47.0 % MCV 85.0 80.0 - 98.0 fL MCH 27.6 26.0 - 34.0 pg MCHC 32.5 32.0 - 36.0 % RDW 14.0 11.5 - 14.5 % Platelets 201 140 - 440 10*3/uL MPV 7.7 7.4 - 12.4 fL nRBC 0.0 0.0 - 2.0 /100 WBCs Neutrophils Relative 73.9 40.0 - 80.0 % Lymphocytes Relative 15.4 (L) 20.0 - 40.0 % Monocytes Relative 6.9 2.0 - 10.0 % Eosinophils Relative 3.0 1.0 - 6.0 % Basophils Relative 0.8 0.0 - 2.0 % Neutrophils Absolute 5.4 1.8 - 7.0 10*3/uL Lymphocytes Absolute 1.1 1.0 - 4.3 10*3/uL Monocytes Absolute 0.5 0.0 - 0.8 10*3/uL Eosinophils Absolute 0.2 0.0 - 0.5 10*3/uL Basophils Absolute 0.1 0.0 - 0.2 10*3/uL Complete Urinalysis Result Value Ref Range Color, Urine Dark Yellow (A) Lt. Yellow Clarity, Urine Turbid (A) Clear pH, Urine 7.5 5.0 - 8.0 pH Leukocytes, Urine 500 (A) Negative [place]/uL Nitrite, Urine Positive (A) Negative Protein, Urine 30 (A) Negative mg/dL Glucose, Urine Normal Normal (<70) mg/dL Bilirubin, Urine Negative Negative mg/dL Ketones, Urine Negative Negative mg/dL Urobilinogen, Urine Normal Normal (0-1) mg/dL Blood, Urine >1.0 (A) Negative mg/dL RBC, Urine 11-25 (A) 0 - 2 /HPF WBC, Urine 51-100 (A) 0 - 5 /HPF Squamous Epithelial, Urine 3-5 3 - 5 /HPF Bacteria, Urine Many (A) Negative /HPF Mucus, Urine Few Negative /LPF WBC Clumps, Urine Few (A) Negative /HPF SPECIFIC GRAVITY OF URINE (NUMERIC) 1.013 1.005 - 1.030 Lactic acid, sepsis, with reflex if elevated Result Value Ref Range LACTIC ACID 0.9 0.7 - 2.0 mmol/L CBC auto differential Result Value Ref Range Auto WBC 8.3 3.6 - 10.7 10*3/uL RBC 3.88 3.8 - 5.20 10*6/uL Hemoglobin 10.9 (L) 11.7 - 16.0 g/dL Hematocrit 32.9 (L) 35.0 - 47.0 % MCV 84.8 80.0 - 98.0 fL MCH 28.2 26.0 - 34.0 pg MCHC 33.3 32.0 - 36.0 % RDW 14.1 11.5 - 14.5 % Platelets 153 140 - 440 10*3/uL MPV 7.3 (L) 7.4 - 12.4 fL nRBC 0.0 0.0 - 2.0 /100 WBCs Neutrophils Relative 87.9 (H) 40.0 - 80.0 % Lymphocytes Relative 7.3 (L) 20.0 - 40.0 % Monocytes Relative 4.0 2.0 - 10.0 % Eosinophils Relative 0.5 (L) 1.0 - 6.0 % Basophils Relative 0.3 0.0 - 2.0 % Neutrophils Absolute 7.3 (H) 1.8 - 7.0 10*3/uL Lymphocytes Absolute 0.6 (L) 1.0 - 4.3 10*3/uL Monocytes Absolute 0.3 0.0 - 0.8 10*3/uL Eosinophils Absolute 0.0 0.0 - 0.5 10*3/uL Basophils Absolute 0.0 0.0 - 0.2 10*3/uL Complete Urinalysis Result Value Ref Range (more content not included)... [facility] 07-18-2022 Note CDU History and Phys ical Admit Date: 07/17/2022 PCP: Pcp No (Inactive) CHIEF COMPLAINT: Fever, chills, nausea Limitations to history: None Outside historians: None HISTORY OF PRESENT ILLNESS: Yash is a 76 y.o. female with past medical history below who presented to the emergency department for evaluation of bilateral flank pain (left greater than right), nausea and low-grade fever. Denies vomiting, abdominal pain, dysuria, hematuria or chills. She did undergo left sided lithotripsy for treatment of renal stone on 07/06/[address] Joya. REVIEW OF SYSTEMS A focused review of systems was performed and is negative except as stated in above HPI. Past Medical & Social History Past Medical History: Diagnosis Date Kidney stone Past Surgical History: Procedure Laterality Date COLONOSCOPY EXTRACORPOREAL SHOCK WAVE LITHOTRIPSY Left 07/06/2022 cystoscopy,retrograde pyelogram- dr. Joya HYSTERECTOMY KNEE ARTHROPLASTY Right 2015 SKIN BIOPSY No family history on file. Social History Socioeconomic History Marital status: Spouse name: Not on file Number of children: Not on file Years of education: Not on file Highest education level: Not on file Occupational History Not on file Tobacco Use Smoking status: Never Smokeless tobacco: Never Vaping Use Vaping Use: Never used Substance and Sexual Activity Alcohol use: Never Drug use: Not Currently Sexual activity: Not on file Other Topics Concern Not on file Social History Narrative Not on file Social Determinants of Health Financial Resource Strain: Not on file Food Insecurity: Not on file Transportation Needs: No Transportation Needs Lack of Transportation (Medical): No Lack of Transportation (Non-Medical): No Physical Activity: Not on file Stress: Not on file Social Connections: Not on file Intimate Partner Violence: Not on file Housing Stability: Unknown Unable to Pay for Housing in the Last Year: No Number of Places Lived in the Last Year: Not on file Unstable Housing in the Last Year: No Current Facility-Administered Medications Medication Dose Route Frequency Provider Last Rate Last Admin acetaminophen (Tylenol) tablet 650 mg 650 mg Oral q6h PRN Suha Coronado PA-C Or acetaminophen (Tylenol) suppository 650 mg 650 mg Rectal q6h PRN Suha Coronado PA-C cefTRIAXone (Rocephin) 1 g in sodium chloride 0.9 % 50 mL IVPB Mini-Bag Plus 1 g IntraVENous q24h Suha Coronado PA-C enoxaparin (Lovenox) syringe 40 mg 40 mg SubCUTAneous Daily Suha Coronado PA-C ferrous sulfate tablet 325 mg 325 mg Oral Daily with breakfast Suha Coronado PA-C HYDROmorphone (Dilaudid) injection 0.5 mg 0.5 mg IntraVENous q4h PRN Suha Coronado PA-C melatonin tablet 3 mg 3 mg Oral Nightly PRN Suha Coronado PA-C ondansetron ODT (Zofran-ODT) disintegrating tablet 4 mg 4 mg Oral q8h PRN Suha Coronado PA-C Or ondansetron (Zofran) injection 4 mg 4 mg IntraVENous q6h PRN Suha Coronado PA-C polyethylene glycol (PEG) 3350 (Miralax) packet 17 g 17 g Oral Daily PRN Suha Coronado PA-C sodium chloride 0.9 % infusion 100 mL/hr IntraVENous Continuous Suha Coronado PA-C 100 mL/hr at 07/17/22 2315 100 mL/hr at 07/17/22 2315 tamsulosin (Flomax) 24 hr capsule 0.4 mg 0.4 mg Oral Daily Suha Coronado PA-C Allergies Allergen Reactions Oxycodone Hives agitated PHYSICAL EXAM VITAL SIGNS: BP 90/54 (BP Location: Left arm, Patient Position: Lying) Pulse (!) 113 Temp 37.1 ?C (98.8 ?F) (Temporal) Resp 16 Ht 1.626 m (5' 4 ) Wt 73 kg (161 lb) SpO2 94% BMI 27.64 kg/m? Pulse Ox: SpO2 Av.8 % Min: 91 % Max: 98 % Supplemental O2: O2 Flow Rate (L/min): 2 L/min Physical Exam General: Vitals noted. NAD, nontoxic, afebrile. HEENT: Normocephalic, atraumatic, sclerae clear, moist mucous membranes, neck supple Cardiac: Tachycardic, regular rhythm, extremities warm and well perfused Lungs: Clear to auscultation bilaterally, no wheezing Abdomen: Soft, mild suprapubic tenderness, normoactive bowel sounds, no rebound or guarding, no rigidity, no CVA tenderness bilaterally Extremities: No edema of bilateral LE Skin: Warm and dry Neuro: Alert and oriented ?3, PERRLA, EOMs intact Psych: Cooperative, normal mood and affect LABS: Labs Reviewed COMPREHENSIVE METABOLIC PANEL - Abnormal Result Value SODIUM 139 POTASSIUM 3.7 CHLORIDE 112 (*) CARBON DIOXIDE 25 ANION GAP 3 UREA NITROGEN 15 CREATININE 0.69 GLUCOSE 108 (*) CALCIUM 8.8 AST (SGOT) 26 ALT 15 ALKALINE PHOSPHATASE 75 ALBUMIN 3.7 BILIRUBIN, TOTAL 0.6 TOTAL PROTEIN 6.9 eGFR >90.0 CBC WITH AUTO DIFFERENTIAL - Abnormal Auto WBC 7.3 RBC 4.64 Hemoglobin 12.8 Hematocrit 39.5 MCV 85.0 MCH 27.6 MCHC 32.5 RDW 14.0 Platelets 201 MPV 7.7 nRBC 0.0 Neutrophils Relative 73.9 Lymphocytes Relative 15.4 (*) Monocytes Relative 6.9 Eosinophils Relative 3.0 Basophils Relative 0.8 Neutrophils Absolute 5.4 (more content not included)... [facility] 07-06-2022 Note Patient: Yash forde Procedure Summary Date: 07/06/22 Room / Location: [address] Operating Room Anesthesia Start: 1251 Anesthesia Stop: 1355 Procedures: CYSTOSCOPY, RIGHT RETROGRADE PYELOGRAM, LEFT EXTRACORPORAL SHOCKWAVE LITHOTRYPSY ESWL CYSTOSCOPY AND PYELOGRAM (Urethra) Diagnosis: Calculus of kidney (Calculus of kidney [N20.0]) Surgeons: Julianne Joya DO Responsible Provider: Matthew Rueda Jr., MD Anesthesia Type: general anesthesia ASA Status: 2 Anesthesia Type: general anesthesia Vitals Value Taken Time BP 135/71 07/06/22 1411 Temp 36.1 ?C (97 ?F) 07/06/22 1349 Pulse 80 07/06/22 1411 Resp 20 07/06/22 1411 SpO2 96 % 07/06/22 1411 Anesthesia Post Evaluation Patient location during evaluation: PACU Patient participation: complete - patient participated Level of consciousness: awake and alert Pain management: satisfactory to patient Airway patency: patent Dental Injury: no Cardiovascular status: acceptable, blood pressure returned to baseline and hemodynamically stable Respiratory status: acceptable and spontaneous ventilation Hydration status: euvolemic Nausea/Vomiting: controlled No notable events documented. Patient can be discharged once all PACU criteria has been met. [facility] 07-06-2022 Note Patient: Yash forde Procedure Summary Date: 07/06/22 Room / Location: [address] Operating Room Anesthesia Start: 1251 Anesthesia Stop: 1355 Procedures: CYSTOSCOPY, RIGHT RETROGRADE PYELOGRAM, LEFT EXTRACORPORAL SHOCKWAVE LITHOTRYPSY ESWL CYSTOSCOPY AND PYELOGRAM (Urethra) Diagnosis: Calculus of kidney (Calculus of kidney [N20.0]) Surgeons: Julianne Joya DO Responsible Provider: Matthew Rueda Jr., MD Anesthesia Type: general anesthesia ASA Status: 2 Anesthesia Type: general anesthesia Vitals Value Taken Time BP 130/79 07/06/22 1349 Temp 36.4 ?C (97.5 ?F) 07/06/22 1349 Pulse 52 07/06/22 1349 Resp 18 07/06/22 1349 SpO2 99 % 07/06/22 1349 Anesthesia Post Evaluation Patient location during evaluation: PACU Patient participation: complete - patient participated Level of consciousness: awake and alert Pain management: satisfactory to patient Multimodal analgesia pain management approach Airway patency: patent Two or more strategies used to mitigate risk of obstructive sleep apnea Cardiovascular status: acceptable and hemodynamically stable Respiratory status: acceptable Hydration status: acceptable No notable events documented. MIPS #[id number] PONV Patient received an inhalational anesthetic (4554F) Patient exhibits three or more risk factors for PONV (4556F) Patient received at leaset 2 prophylactic Rx PONV anti-emtic agents of different classes preop and/or intraop (G9775) MIPS # 424 Perioperative Temperature Management Anesthesia time was 60 minutes or longer (4255F) Anesthesai administered was General (inhalational or TIVA) or Neuraxial block (X0424) At least one body temperature greater than 95.8F/35.5C achieved within the 30 mins immediately prior to or the 15 minutes immediately following anesthesia end time (G9771) MIPS #477 Multimodal Pain Management Not emergent case Patient was administered multimodal pain management (two or more drugs and/or interventions excluding systemic opioids) in the periopeartive period occurring at some time between 6 hours prior to anesthesia start time until discharged from PACU (G2148) MIPS #404 Anesthesiology Smoking Abstinence The patient is not a current smoker (e.g. cigarette, cigar, pipe, e-cigarette/vaping/marijuana) I completed my handoff to the receiving clinician during which we: 1. Identified the patient 2. Identified the responsible provider 3. Reviewed the pertinent medical history 4. Discussed the surgical course 5. Reviewed intra-op anesthesia management and issues during anesthesia 6. Set expectations for post-procedure period 7. Allowed opportunity for questions and acknowledgement of understanding. [facility] 07-06-2022 Note Airway Date/Time: 07/06/2022 12:55 PM Urgency: scheduled Airway not difficult General Information and Staff Patient location during procedure: Procedural Anesthesiologist: Matthew Rueda Jr., MD Resident/ASSISTANT MANAGER BILINGUAL: Julián Anguiano APRN - ASSISTANT MANAGER BILINGUAL Performed: ASSISTANT MANAGER BILINGUAL Indications and Patient Condition Indications for airway management: anesthesia Preoxygenated: yes Patient position: sniffing MILS maintained throughout Mask difficulty assessment: 1 - vent by mask Final Airway Details Final airway type: supraglottic airway Successful airway: Igel Size 3 Number of attempts at approach: 1 [facility] 06-29-2022 Note Patient: Yash forde Procedure Information Date/Time: 07/06/22 1100 Procedures: CYSTOSCOPY, RIGHT RETROGRADE PYELOGRAM, LEFT EXTRACORPORAL SHOCKWAVE LITHOTRYPSY ESWL CYSTOSCOPY AND PYELOGRAM (Urethra) Location: [address] Operating Room Surgeons: Julianne Joya, DO Relevant Problems Anesthesia (-) Delayed emergence from anesthesia (-) Difficult intravenous access (-) Difficult intubation (-) Family history of malignant hyperthermia (-) Motion sickness (-) BLAYNE (obstructive sleep apnea) (-) PONV (postoperative nausea and vomiting) /Renal (+) Kidney stone on left side Pulmonary (-) BLAYNE (obstructive sleep apnea) Past Medical History: Past Medical History: No date: Kidney stone Past Surgical History: Past Surgical History: No date: COLONOSCOPY No date: HYSTERECTOMY No date: KNEE ARTHROPLASTY No date: SKIN BIOPSY Social History: TOBACCO: reports that she has never smoked. She has never used smokeless tobacco. ETOH: reports no history of alcohol use. Social History Substance and Sexual Activity Drug Use Not Currently Family History: No family history on file. Screening: unknown Clinical information reviewed: Allergies Meds OB Status Physical Exam Airway Mallampati: III TM distance: >3 FB Neck ROM: limited Mouth Open: normalendotracheal tube not in place Cardiovascular Dental (+) Lower Partials Comments: Missing teeth top and bottom Nothing loose or broken No dentures +bottom partial - broke so not currently wearing no crowns Pulmonary Abdominal Other findings: Denies GERD PONV: High Risk Total Score: 3 Female patient Non-smoker Intended opioid administration Anesthesia Plan ASA 2 general anesthesia The patient is not a current smoker. Patient was not previously instructed to abstain from smoking on day of procedure. Patient did not smoke on day of procedure. Anesthetic plan and risks discussed with patient. patient is NPO ERAS Meds Tylenol Pepcid [place] - Wears hearing aids BLAYNE Screening STOP-Bang Total Score: 2 Labs: Lab Results Component Value Date WBC 8.0 05/16/2022 HGB 13.5 05/16/2022 HCT 40.8 05/16/2022 MCV 85.8 05/16/2022 PLT 191 05/16/2022 Lab Results Component Value Date NA 141 05/16/2022 K 4.0 05/16/2022 CL 109 (H) 05/16/2022 CO2 28 05/16/2022 BUN 20 (H) 05/16/2022 CREATININE 0.62 05/16/2022 GLUCOSE 98 05/16/2022 CALCIUM 9.2 05/16/2022 EGFR >90.0 05/16/2022 Pain Score: 5 - Moderate pain No echocardiogram results found for the past 14 days No results found for this or any previous visit. [facility] 06-29-2022 Note Comprehensive PreSur gical History and Physical ? Name: Yash Francois : 1945 (Age-76 y.o.) Date of Service: Pt seen/examined on 06/29/2022 Procedure Information Date/Time: 07/06/22 1100 Procedures: CYSTOSCOPY, RIGHT RETROGRADE PYELOGRAM, LEFT EXTRACORPORAL SHOCKWAVE LITHOTRYPSY ESWL CYSTOSCOPY AND PYELOGRAM (Urethra) Location: [address] Operating Room Surgeons: Julianne Joya DO Chief Complaint: Calculus of kidney History Of Present Illness: 76 y.o. female who c/o kidney stone on the left. Patient states she has still been having pain in her pelvic region, mid to lower back, and abdomen. Seen on 05/16/22 in the ER for pain across the lower back and suprapubic pain. She has hx of recurrent UTI's and was recently treated for UTI. Admitted to urinary frequency without fever, chills, nausea/vomiting. 05/16/22 Urine culture + for proteus mirabilis. Suspect her left kidney stone is causing her UTI infections CTAP shows large left upper pole renal stones. No obstruction. No right renal stones. 06/07/22 urine culture results: no growth Pt has seen the surgeon and elected for above procedure. Denies Hx of HTN, HLD, DM, CAD, CHF, HI, TIA/CVA, DVT/PE, Asthma/COPD, BLAYNE Dental? - Missing teeth top and bottom Nothing loose or broken No dentures +bottom partial - broke so not currently wearing no crowns Hx problems with anesthesia? -no Snore at night? -no >4 METS? -yes Walk indoors, such as around the house (1.75 METs), Do light work around the house, such as dusting or washing dishes (2.70 METs), Take care of self, that is eating, dressing, bathing, using the toilet (2.75 METs), Do moderate work around the house such as vacuuming, sweeping floors, or carrying in groceries (3.50 METs), Climb a flight of stairs or walk up a hill (5.50 METs) Past Medical History: Past Medical History: No date: Kidney stone Past Surgical History: Past Surgical History: No date: COLONOSCOPY No date: HYSTERECTOMY No date: KNEE ARTHROPLASTY No date: SKIN BIOPSY Medications Prior to Admission: Current Outpatient Medications: COLLAGEN PO, Take by mouth., Disp: , Rfl: Cyanocobalamin (B-12 PO), Take by mouth., Disp: , Rfl: ferrous sulfate 325 (65 Fe) MG tablet, Take 325 mg by mouth daily (with breakfast)., Disp: , Rfl: MAGNESIUM PO, Take by mouth., Disp: , Rfl: Multiple Vitamins-Minerals (ZINC PO), Take by mouth., Disp: , Rfl: CHRONIC NARCOTIC USE: No Allergies: Patient has no known allergies. If patient has opioid allergy, is it okay to take Acetaminophen: N/A Social History: TOBACCO: reports that she has never smoked. She has never used smokeless tobacco. ETOH: reports no history of alcohol use. Social History Substance and Sexual Activity Drug Use Not Currently Family History: No family history on file. REVIEW OF SYSTEMS: Review of Systems Constitutional: Negative for chills and fever. Respiratory: Negative for shortness of breath. Cardiovascular: Negative for chest pain. Pertinent positives as noted in the HPI. Physical Exam: Physical Exam Constitutional: General: She is awake. She is not in acute distress. Appearance: Normal appearance. HENT: Head: Normocephalic and atraumatic. Eyes: Extraocular Movements: Extraocular movements intact. Conjunctiva/sclera: Conjunctivae normal. Cardiovascular: Rate and Rhythm: Normal rate and regular rhythm. Heart sounds: Normal heart sounds. Pulmonary: Effort: Pulmonary effort is normal. Breath sounds: Normal breath sounds. Abdominal: Palpations: Abdomen is soft. Musculoskeletal: General: Normal range of motion. Cervical back: Normal range of motion. Skin: General: Skin is warm and dry. Neurological: General: No focal deficit present. Mental Status: She is alert and oriented to person, place, and time. Psychiatric: Mood and Affect: Mood normal. Behavior: Behavior normal. Vitals: Vitals Value Taken Time BP 130/77 06/29/22 1355 Temp 36.7 ?C (98 ?F) 06/29/22 1355 Pulse 79 06/29/22 1355 Resp 16 06/29/22 1349 SpO2 97 % 06/29/22 1355 BP 130/77 Pulse 79 Temp 36.7 ?C (98 ?F) (Temporal) Resp 16 Ht 1.651 m (5' 5 ) Wt 73 kg (161 lb) SpO2 97% BMI 26.79 kg/m? Labs: Lab Results Component Value Date WBC 8.0 05/16/2022 HGB 13.5 05/16/2022 HCT 40.8 05/16/2022 MCV 85.8 05/16/2022 PLT 191 05/16/2022 Lab Results Component Value Date NA 141 05/16/2022 K 4.0 05/16/2022 CL 109 (H) 05/16/2022 CO2 28 05/16/2022 BUN 20 (H) 05/16/2022 CREATININE 0.62 05/16/2022 GLUCOSE 98 05/16/2022 CALCIUM 9.2 05/16/2022 EGFR >90.0 05/16/2022 Bogdan's Simple Cardiac Risk Index: BOGDAN'S SIMPLE CARDIAC RISK SCORE: 0 Interpretation: 0 Points Class I 0.5% 1 Point Class II 1.3% 2 Points Class III 3.6% 3+ Points Class IV 9.1% PAT Pain Score: Pain Score: 5 - Moderate pain Postop Pain Management Plan (Pain consult ordered?): Pain consult n (more content not included)... [facility] 06-29-2022 Note Comprehensive PreSur gical History and Physical ? Name: Yash Francois : 1945 (Age-76 y.o.) Date of Service: Pt seen/examined on 06/29/2022 Procedure Information Date/Time: 07/06/22 1100 Procedures: CYSTOSCOPY, RIGHT RETROGRADE PYELOGRAM, LEFT EXTRACORPORAL SHOCKWAVE LITHOTRYPSY ESWL CYSTOSCOPY AND PYELOGRAM (Urethra) Location: [address] Operating Room Surgeons: Julianne Joya DO Chief Complaint: Calculus of kidney History Of Present Illness: 76 y.o. female who c/o kidney stone on the left. Patient states she has still been having pain in her pelvic region, mid to lower back, and abdomen. Seen on 05/16/22 in the ER for pain across the lower back and suprapubic pain. She has hx of recurrent UTI's and was recently treated for UTI. Admitted to urinary frequency without fever, chills, nausea/vomiting. 05/16/22 Urine culture + for proteus mirabilis. Suspect her left kidney stone is causing her UTI infections CTAP shows large left upper pole renal stones. No obstruction. No right renal stones. 06/07/22 urine culture results: no growth Pt has seen the surgeon and elected for above procedure. Denies Hx of HTN, HLD, DM, CAD, CHF, HI, TIA/CVA, DVT/PE, Asthma/COPD, BLAYNE Dental? - Missing teeth top and bottom Nothing loose or broken No dentures +bottom partial - broke so not currently wearing no crowns Hx problems with anesthesia? -no Snore at night? -no >4 METS? -yes Walk indoors, such as around the house (1.75 METs), Do light work around the house, such as dusting or washing dishes (2.70 METs), Take care of self, that is eating, dressing, bathing, using the toilet (2.75 METs), Do moderate work around the house such as vacuuming, sweeping floors, or carrying in groceries (3.50 METs), Climb a flight of stairs or walk up a hill (5.50 METs) Past Medical History: Past Medical History: No date: Kidney stone Past Surgical History: Past Surgical History: No date: COLONOSCOPY No date: HYSTERECTOMY No date: KNEE ARTHROPLASTY No date: SKIN BIOPSY Medications Prior to Admission: Current Outpatient Medications: COLLAGEN PO, Take by mouth., Disp: , Rfl: Cyanocobalamin (B-12 PO), Take by mouth., Disp: , Rfl: ferrous sulfate 325 (65 Fe) MG tablet, Take 325 mg by mouth daily (with breakfast)., Disp: , Rfl: MAGNESIUM PO, Take by mouth., Disp: , Rfl: Multiple Vitamins-Minerals (ZINC PO), Take by mouth., Disp: , Rfl: CHRONIC NARCOTIC USE: No Allergies: Patient has no known allergies. If patient has opioid allergy, is it okay to take Acetaminophen: N/A Social History: TOBACCO: reports that she has never smoked. She has never used smokeless tobacco. ETOH: reports no history of alcohol use. Social History Substance and Sexual Activity Drug Use Not Currently Family History: No family history on file. REVIEW OF SYSTEMS: Review of Systems Constitutional: Negative for chills and fever. Respiratory: Negative for shortness of breath. Cardiovascular: Negative for chest pain. Pertinent positives as noted in the HPI. Physical Exam: Physical Exam Constitutional: General: She is awake. She is not in acute distress. Appearance: Normal appearance. HENT: Head: Normocephalic and atraumatic. Eyes: Extraocular Movements: Extraocular movements intact. Conjunctiva/sclera: Conjunctivae normal. Cardiovascular: Rate and Rhythm: Normal rate and regular rhythm. Heart sounds: Normal heart sounds. Pulmonary: Effort: Pulmonary effort is normal. Breath sounds: Normal breath sounds. Abdominal: Palpations: Abdomen is soft. Musculoskeletal: General: Normal range of motion. Cervical back: Normal range of motion. Skin: General: Skin is warm and dry. Neurological: General: No focal deficit present. Mental Status: She is alert and oriented to person, place, and time. Psychiatric: Mood and Affect: Mood normal. Behavior: Behavior normal. Vitals: Vitals Value Taken Time BP 130/77 06/29/22 1355 Temp 36.7 ?C (98 ?F) 06/29/22 1355 Pulse 79 06/29/22 1355 Resp 16 06/29/22 1349 SpO2 97 % 06/29/22 1355 BP 130/77 Pulse 79 Temp 36.7 ?C (98 ?F) (Temporal) Resp 16 Ht 1.651 m (5' 5 ) Wt 73 kg (161 lb) SpO2 97% BMI 26.79 kg/m? Labs: Lab Results Component Value Date WBC 8.0 05/16/2022 HGB 13.5 05/16/2022 HCT 40.8 05/16/2022 MCV 85.8 05/16/2022 PLT 191 05/16/2022 Lab Results Component Value Date NA 141 05/16/2022 K 4.0 05/16/2022 CL 109 (H) 05/16/2022 CO2 28 05/16/2022 BUN 20 (H) 05/16/2022 CREATININE 0.62 05/16/2022 GLUCOSE 98 05/16/2022 CALCIUM 9.2 05/16/2022 EGFR >90.0 05/16/2022 Bogdan's Simple Cardiac Risk Index: BOGDAN'S SIMPLE CARDIAC RISK SCORE: 0 Interpretation: 0 Points Class I 0.5% 1 Point Class II 1.3% 2 Points Class III 3.6% 3+ Points Class IV 9.1% PAT Pain Score: Pain Score: 5 - Moderate pain Postop Pain Management Plan (Pain consult ordered?): Pain consult n (more content not included)... [facility] 06-10-2022 Telephone encounter Note Please schedule next available [facility] 06-10-2022 Miscellaneous Notes Please schedule next available OR Request for Toan PROCEDURE: Cystoscopy left retrograde pyelogram, left extracorporeal shockwave lithotripsy DIAGNOSIS: Left renal calculus FACILITY: Any DETAILS: OUTPT ANESTHESIA: GENERAL TIME REQUESTED: 90 minutes DATE REQUESTED: ROUTINE SURGERY ORDERS: will be Placed by Petar Joya POST OP FOLLOW UP: Office cystoscopy with stent removal 3 to 4 weeks postop REP REQUESTED: Yes - [facility] SPECIAL NEEDS: ESWL PAT: yes MEDICAL CLEARANCE: Yes documented in this encounter [facility] 06-07-2022 Telephone encounter Note OR Request for Toan PROCEDURE: Cystoscopy left retrograde pyelogram, left extracorporeal shockwave lithotripsy DIAGNOSIS: Left renal calculus FACILITY: Any DETAILS: OUTPT ANESTHESIA: GENERAL TIME REQUESTED: 90 minutes DATE REQUESTED: ROUTINE SURGERY ORDERS: will be Placed by Petar Joya POST OP FOLLOW UP: Office cystoscopy with stent removal 3 to 4 weeks postop REP REQUESTED: Yes - [facility] SPECIAL NEEDS: ESWL PAT: yes MEDICAL CLEARANCE: Yes [facility] Diagnosis [facility] Diagnosis Hemoptysis- Primary Colon cancer screening Special screening for malignant neoplasms, colon Osteoporosis, unspecified osteoporosis type, unspecified pathological fracture presence Hemoptysis [facility] Diagnosis Hemoptysis- Primary [facility] Diagnosis Diastolic heart failure, unspecified HF chronicity (HCC)- Primary Kidney stone on left side [facility] Diagnosis Multiple lung nodules- Primary Other diseases of lung, not elsewhere classified Liver lesion Other specified disorders of liver Acute bilateral low back pain without sciatica [facility] Diagnosis Multiple lung nodules- Primary Other diseases of lung, not elsewhere classified Liver lesion Other specified disorders of liver Acute bilateral low back pain without sciatica [facility] Diagnosis Multiple lung nodules- Primary Other diseases of lung, not elsewhere classified Benign paroxysmal positional vertigo of right ear Onychomycosis Dermatophytosis of nail [facility] Diagnosis Kidney stone on left side [facility] Diagnosis Pulmonary nodules- Primary Other diseases of lung, not elsewhere classified History of hemoptysis [facility] Diagnosis Onychomycosis- Primary Dermatophytosis of nail [facility] Diagnosis Onychomycosis- Primary Dermatophytosis of nail [facility] Diagnosis Onychomycosis- Primary Dermatophytosis of nail Adverse effect of terbinafine [facility] Diagnosis Onychomycosis- Primary Dermatophytosis of nail Therapeutic drug monitoring Encounter for therapeutic drug monitoring [facility] Diagnosis Chronic cough- Primary Cough [facility] Diagnosis Onychomycosis Dermatophytosis of nail [facility] Diagnosis Onychomycosis Dermatophytosis of nail [facility] Diagnosis Kidney stone on left side- Primary Dysuria Hydronephrosis with renal and ureteral calculous obstruction [facility] Diagnosis Kidney stone on left side- Primary Dysuria Hydronephrosis with renal and ureteral calculous obstruction [facility] Diagnosis Medication side effect- Primary documented in this encounter [facility] for referral (narrative)* Consultation (Routine) - Pending Review Specialty Diagnoses / Procedures Referred By Nino good Referred To Contact Gastroenterology Diagnoses Encounter for screening for malignant neoplasm of colon Procedures [place] OFFICE/OUTPATIENT [facility] 60-74 MINUTES Suly Parker MD [address] [place] [address] Sana Benedict MD [address] [place] [address], [address] [place] [address] Referral ID Status Reason Start Date Expiration Date Visits Requested Visits Authorized [id number] Pending Review Specialty Services Required 11/16/2022 11/16/[address] [facility] for referral (narrative)* Consultation (Routine) - Pending Review Specialty Diagnoses / Procedures Referred By Contac t Referred To Contact Pulmonology Diagnoses Hemoptysis Procedures [place] OFFICE[facility]OUTPATIENT [facility] MDM 60-74 MINUTES Suly Parker MD [address] [place] [address] Darshan Vickers MD [address] [place] [address] Referral ID Status Reason Start Date Expiration Date Visits Requested Visits Authorized [id number] Pending Review Specialty Services Required 11/30/2022 11/30/[address] [facility] for referral (narrative)* Consultation (Routine) - Pending Review Specialty Diagnoses / Procedures Referred By Contac t Referred To Contact Pulmonology Diagnoses Multiple lung nodules Procedures [place] OFFICE[place]OUTPATIENT [facility] MDM 60-74 MINUTES Sandro Cage MD [address] [place] [address] [facility] [address] [place] [address] Referral ID Status Reason Start Date Expiration Date Visits Requested Visits Authorized [id number] Pending Review Specialty Services Required 01/16/2023 01/16/2024 1 1 * Therapy (Routine) - Pending Review Specialty Diagnoses / Procedures Referred By Contac t Referred To Contact Physical Therapy Diagnoses Acute bilateral low back pain without sciatica Procedures [place] OFFICE/OUTPATIENT [facility] 60-74 MINUTES Sandro Cage MD [address] [place] [address] [address] [place] [address] Referral ID Status Reason Start Date Expiration Date Visits Requested Visits Authorized [id number] Pending Review Eval and Treat 01/16/2023 07/15/2023 99 99 * Consultation (Routine) - Pending Review Specialty Diagnoses / Procedures Referred By Contac t Referred To Contact Pulmonology Diagnoses Multiple lung nodules Procedures [place] OFFICE/OUTPATIENT NEW HIGH MDM 60-74 MINUTES Sandro Cage MD [address] [place] [address] [facility] [address] [place] [address] Referral ID Status Reason Start Date Expiration Date Visits Requested Visits Authorized [id number] Pending Review Specialty Services Required 01/16/2023 01/16/2024 1 1 [facility] Summary Purpose Family History No Family History Records FoundNo Family History Records Found Advance Directives No Advanced Directives Records FoundLatest Code Status on File Code Status Date Activated Date Inactivated Comments Full Code 07/17/2022 11:08 PM 07/23/2022 6:42 PM Latest Code Status on File Code Status Date Activated Date Inactivated Comments Full Code 07/17/2022 11:08 PM 07/23/2022 6:42 PM Reason for Referral Specialty Diagnoses / Procedures Referred By Contac t Referred To Contact Physical Therapy Diagnoses Benign paroxysmal positional vertigo of right ear Sandro Cage MD [address] [place] [address] [address] [facility] [place] [address] Referral ID Status Reason Start Date Expiration Date Visits Requested Visits Authorized [id number] Pending Review Eval and Treat 02/14/2023 08/13/2023 99 99 Specialty Diagnoses / Procedures Referred By Contac t Referred To Contact Pulmonology Diagnoses Multiple lung nodules Procedures [place] OFFICE/OUTPATIENT NEW HIGH MDM 60-74 MINUTES Sandro Cage MD [address] [place] [address] [facility] [address] [place] [address] Referral ID Status Reason Start Date Expiration Date Visits Requested Visits Authorized [id number] Pending Review Specialty Services Required 02/14/2023 02/14/2024 1 1 Referral ID Status Reason Start Date Expiration Date Visits Requested Visits Authorized [id number] Canceled Specialty Services Required 02/14/2023 02/14/2024 1 1 Additional Source Comments INFORMATION SOURCE (unrecogn ized section and content) DATE CREATED AUTHOR AUTHOR'S ORGANIZ ATION 06/17/2023 [employer] [facility] Reason for Visit (unrecogniz ed section and content) Reason Onset Date Comments Release of Information 07/21/2022 Reason Comments Hospital Follow-up Reason Onset Date Comments Surgery Scheduling 06/07/2022 Reason Comments Follow-up Reason Comments Results Reason Onset Date Comments Appointment 02/13/2023 Reason Comments Follow-up Reason Comments New Patient Specialty Diagnoses / Procedures Referred By Contac t Referred To Contact Pulmonology Diagnoses Multiple lung nodules Procedures [place] OFFICE/OUTPATIENT NEW HIGH MDM 60-74 MINUTES Sandro Cage MD [address] [place] [address] [facility] [address] [place] [address] Referral ID Status Reason Start Date Expiration Date Visits Requested Visits Authorized [id number] Pending Review Specialty Services Required 01/16/2023 01/16/2024 1 1 Reason Onset Date Comments Cancelled Appointment 02/12/2023 Pt started a new job and needs to cx and r/s appt for 9.14.23. Please call to r/s Reason Onset Date Comments Appointment Request 03/08/2023 Pt missed ap pt for .14 and would like to r/s appt. Please call her The appt was for *Follow up in about 6 months (around 02/22/2023) for stone follow up (KUB/CONSUELO prior). Reason Comments Blood Work Went to get blood wo rk and order was not there. Reason Onset Date Comments Medication Problem 03/27/2023 Reason Comments Nail Problem Reason Onset Date Comments call patient 05/12/2023 Reason Onset Date Comments Medication Check 11/25/2022 Reason Onset Date Comments Med Refill 05/16/2023 Reason Comments Nephrolithiasis 6 month [address] Surge [address] Joya in [place] [facility] approx 2 weeks ago for stones Reason Onset Date Comments Surgery Scheduling 05/30/2023 Insurance Reason Onset Date Comments Medication Problem 05/18/2023 Reason Onset Date Comments Orders 06/09/2023 Care Teams (unrecognized sec tion and content) Spool Sander Relationship Specialty Start Date End Date No, Pcp [address] [place] [address] PCP - General 05/16/22 João Villa MD [address] [place] [address] Surgeon Urology 05/17/22 Julianne Joya DO [address] [place] [address] Surgeon Urology 06/07/22 Spool Sander Relationship Specialty Start Date End Date No, Pcp [address] [place] [address] PCP - General 05/16/22 João Villa MD [address] [place] [address] Surgeon Urology 05/17/22 Julianne Joya DO [address] [place] [address] Surgeon Urology 06/07/22 Spool Sander Relationship Specialty Start Date End Date No, Pcp [address] [place] [address] PCP - General 05/16/22 João Villa MD [address] [place] [address] Surgeon Urology 05/17/22 Julianne Joya DO [address] [place] [address] Surgeon Urology 06/07/22 Spool Sander Relationship Specialty Start Date End Date Suly Parker MD [address] [place] [address] PCP - General 11/16/22 João Villa MD [address] [place] [address] Surgeon Urology 05/17/22 Julianne Joya DO [address] [place] [address] Surgeon Urology 06/07/22 Spool Sander Relationship Specialty Start Date End Date [facility] [address] [place] [address] PCP - General 05/16/22 11/15/22 Suly Parker MD [address] [place] [address] PCP - General 11/16/22 João Villa MD [address] [place] [address] Surgeon Urology 05/17/22 Julianne Joya DO [address] [place] [address] Surgeon Urology 06/07/22 Spool Sander Relationship Specialty Start Date End Date Suly Parker MD [address] [place] [address] PCP - General 11/16/22 João Villa MD [address] [place] [address] Surgeon Urology 05/17/22 Julianne Joya DO [address] [place] [address] Surgeon Urology 06/07/22 Spool Sander Relationship Specialty Start Date End Date Suly Parker MD [address] [place] [address] PCP - General 11/16/22 João Villa MD [address] [place] [address] Surgeon Urology 05/17/22 Julianne Joya DO [address] [place] [address] Surgeon Urology 06/07/22 Spool Sander Relationship Specialty Start Date End Date Suly Parker MD [address] [place] [address] PCP - General 11/16/22 João Villa MD [address] [place] [address] Surgeon Urology 05/17/22 Julianne Joya DO [address] [place] [address] Surgeon Urology 06/07/22 Spool Sander Relationship Specialty Start Date End Date Sandro Cage MD [address] [place] [address] PCP - General Family Medicine 01/04/23 João Villa MD [address] [place] [address] Surgeon Urology 05/17/22 Julianne Joya DO [address] [place] [address] Surgeon Urology 06/07/22 Spool Sander Relationship Specialty Start Date End Date Sandro Cage MD [address] [place] [address] PCP - General Family Medicine 01/04/23 João Villa MD [address] [place] [address] Surgeon Urology 05/17/22 Julianne Joya DO [address] [place] [address] Surgeon Urology 06/07/22 Spool Sander Relationship Specialty Start Date End Date Sandro Cage MD [address] [place] [address] PCP - General Family Medicine 01/04/23 João Villa MD [address] [place] [address] Surgeon Urology 05/17/22 Julianne Joya DO [address] [place] [address] Surgeon Urology 06/07/22 Spool Sander Relationship Specialty Start Date End Date Sandro Cage MD [address] [place] [address] PCP - General Family Medicine 01/04/23 João Villa MD [address] [place] [address] Surgeon Urology 05/17/22 Julianne Joya DO [address] [place] [address] Surgeon Urology 06/07/22 Spool Sander Relationship Specialty Start Date End Date Sandro Cage MD [address] [place] [address] PCP - General Family Medicine 01/04/23 João Villa MD 95 [facility] [address] [place] [address] Surgeon Urology 05/17/22 Julianne Joya DO 95 [facility] [address] [place] [address] Surgeon Urology 06/07/22 Spool Sander Relationship Specialty Start Date End Date [facility] [address] [place] [address] PCP - General 05/16/22 11/15/22 Suly Parker MD [address] [place] [address] PCP - General 11/16/22 12/19/22 Jasbir Hackett MD [address] [place] [address] PCP - General Family Medicine 12/20/22 12/20/22 Sonny Schmitz MD [address] [address] PCP - General Family Medicine 12/21/22 01/03/23 Sandro Cage MD [address] [place] [address] PCP - General Family Medicine 01/04/23 João Villa MD [address] [place] [address] Surgeon Urology 05/17/22 Julianne Joya DO [address] [place] [address] Surgeon Urology 06/07/22 Spool Sander Relationship Specialty Start Date End Date Sandro Cage MD [address] [place] [address] PCP - General Family Medicine 01/04/23 João Villa MD [address] [place] [address] Surgeon Urology 05/17/22 Julianne Joya DO [address] [place] [address] Surgeon Urology 06/07/22 Spool Sander Relationship Specialty Start Date End Date Sandro Cage MD [address] [place] [address] PCP - General Family Medicine 01/04/23 João Villa MD [address] [place] [address] Surgeon Urology 05/17/22 Julianne Joya DO [address] [place] [address] Surgeon Urology 06/07/22 Spool Sander Relationship Specialty Start Date End Date Sandro Cage MD [address] [place] [address] PCP - General Family Medicine 01/04/23 João Villa MD [address] [place] [address] Surgeon Urology 05/17/22 Julianne Joya DO [address] [place] [address] Surgeon Urology 06/07/22 Spool Sander Relationship Specialty Start Date End Date Sandro Cage MD [address] [place] [address] PCP - General Family Medicine 01/04/23 João Villa MD [address] [place] [address] Surgeon Urology 05/17/22 Julianne Joya DO [address] [place] [address] Surgeon Urology 06/07/22 Spool Sander Relationship Specialty Start Date End Date Sandro Cage MD [address] [place] [address] PCP - General Family Medicine 01/04/23 João Villa MD [address] [place] [address] Surgeon Urology 05/17/22 Julianne Joya DO [address] [place] [address] Surgeon Urology 06/07/22 Spool Sander Relationship Specialty Start Date End Date Sandro Cage MD [address] [place] [address] PCP - General Family Medicine 01/04/23 João Villa MD [address] [place] [address] Surgeon Urology 05/17/22 Julianne Joya DO [address] [place] [address] Surgeon Urology 06/07/22 Spool Sander Relationship Specialty Start Date End Date Sandro Cage MD [address] [place] [address] PCP - General Family Medicine 01/04/23 João Villa MD [address] [place] [address] Surgeon Urology 05/17/22 Julianne Joya DO [address] [place] [address] Surgeon Urology 06/07/22 Spool Sander Relationship Specialty Start Date End Date Suly Parker MD [address] [place] [address] PCP - General 11/16/22 12/19/22 Jasbir Hackett MD [address] [place] [address] PCP - General Family Medicine 12/20/22 12/20/22 Sonny Schmitz MD [address] [place] [address] [place] [address] PCP - General Family Medicine 12/21/22 01/03/23 Sandro Cage MD [address] [place] [address] PCP - General Family Medicine 01/04/23 João Villa MD 95 [facility]. [address] [place] [address] Surgeon Urology 05/17/22 Julianne Joya DO 95 [facility] [address] [place] [address] Surgeon Urology 06/07/22 Spool Sander Relationship Specialty Start Date End Date Sandro Cage MD [address] [place] [address] PCP - General Family Medicine 01/04/23 João Villa MD 95 [facility] [place] [address] Surgeon Urology 05/17/22 Julianne Joya DO 95 [facility] [address] [place] [address] Surgeon Urology 06/07/22 Spool Sander Relationship Specialty Start Date End Date Sandro Cage MD [address] [place] [address] PCP - General Family Medicine 01/04/23 João Villa MD [address] [place] [address] Surgeon Urology 05/17/22 Julianne Joya DO [address] [place] [address] Surgeon Urology 06/07/22 Spool Sander Relationship Specialty Start Date End Date Sandro Cage MD [address] [place] [address] PCP - General Family Medicine 01/04/23 João Villa MD [address] [place] [address] Surgeon Urology 05/17/22 Julianne Joya DO [address] [place] [address] Surgeon Urology 06/07/22 Spool Sander Relationship Specialty Start Date End Date Sandro Cage MD [address] [place] [address] PCP - General Family Medicine 01/04/23 João Villa MD [address] [place] [address] Surgeon Urology 05/17/22 Julianne Joya DO [address] [place] [address] Surgeon Urology 06/07/22 Spool Sander Relationship Specialty Start Date End Date Sandro Cage MD [address] [place] [address] PCP - General Family Medicine 01/04/23 João Villa MD [address] [place] [address] Surgeon Urology 05/17/22 Julianne Joya DO [address] [place] [address] Surgeon Urology 06/07/22 Spool Sander Relationship Specialty Start Date End Date Sandro Cage MD [address] [facility] [place] [address] PCP - General Family Medicine 01/04/23 João Villa MD [address] [place] [address] Surgeon Urology 05/17/22 Julianne Joya DO [address] [place] [address] Surgeon Urology 06/07/22 FOR RECORDS PERTAINING TO PATIENTS WHO ARE OR HAVE BEEN ENROLLED IN A CHEMICAL DEPENDENCY/SUBSTANCEABUSE PROGRAM, SOME INFORMATION MAY BE OMITTED. This clinical summary was aggregated from multiple sources. Caution should be exercised in using it in the provision of clinical care. This summary normalizes information from multiple sources, and as a consequence, information in this document may materially change the coding, format and clinical context of patient data. In addition, data may be omitted in some cases. CLINICAL DECISIONS SHOULD BE BASED ON THE PRIMARY CLINICAL RECORDS. [facility] [employer] provides no warranty or guarantee of the accuracy or completeness of information in this document.
== END | disposition home or self-care (01) ==
PROVIDERS: Referring Provider Urology; Visit Provider Urology
DX: N20.0 Calculus of kidney (principal)
CPT/HCPCS: 74018

== ENCOUNTER 2023-07-09 08:14 | Emergency (ER) | payer MEDICARE, MEDICAID, SELFPAY ==
[2023-07-09 08:14] VITALS: BP 125/81; PULSE 57; RESP 16; TEMP 36.6; O2SAT 98; BMI 27.8
--- NOTE | 2023-07-09 08:26 | CT_ITS ---
HISTORY: Pain. TECHNIQUE: Helically acquired images were obtained of the abdomen and pelvis without oral or IV contrast. A radiation dose optimization technique was used for this scan. 451 images. COMPARISON: XR 06/26/2023, CT 05/10/2023. FINDINGS: LOWER CHEST: Very mild atelectasis in the lung bases with chronic fat-containing diaphragmatic hernias. BOWEL: Bowel nondilated. Appendix not visualized. Colonic diverticulosis without focal pericolonic inflammatory change. PERITONEUM: No significant free fluid. LIVER: 17.8 cm in length. GALLBLADDER/BILIARY TREE: Tiny calcified gallstones. SPLEEN/PANCREAS/ADRENAL GLANDS: Nonenlarged. KIDNEYS AND URETERS: Moderate left hydronephrosis, distended extrarenal pelvis, mild left perinephric stranding, and moderate hydroureter down to the level of a 7 x 10 mm distal ureteral calculus. 12 mm left interpolar and lower pole calculi. 2 mm and 5 mm left lower pole calculi. 2 mm right interpolar calculus without hydronephrosis. VESSELS: No abdominal aortic aneurysm. Atherosclerosis. PELVIC ORGANS: Absent uterus. BONES: Degenerative change. CT/Abdomen/Pelvis without Cont IMPRESSION: Moderate left hydronephrosis secondary to a 7 x 10 mm distal ureteral calculus. Bilateral nephrolithiasis. No right hydronephrosis. Cholelithiasis. Chronic mild hepatomegaly. Colonic diverticulosis without acute diverticulitis. Electronically Signed: Nadiya Nguyen MD at 9:37 EST ,
--- NOTE | 2023-07-09 08:28 | EDS_ITS ---
HPI HPI - GI History of Present Illness Chief Complaint: Flank Pain Detail of Chief Complaint: Left flank pain. Known history of kidney stone. Informant: patient and friend Abdominal Pain/Flank Pain Onset: Today and Hours Context: Gradual Onset Timing: Intermittent Location: Left Flank Current Severity: Moderate Maximum Severity: Moderate Relieved by: Nothing Nausea/Vomiting/Emesis GI Symptom: Positive for Nausea and Vomiting Onset: Today Severity: Mild Diarrhea/Melena/Hematochezia GI Symptom: Negative for Diarrhea, Melena or Hematochezia Associated Symptoms Associated Symptoms: Positive for Hematuria; Negative for Dysuria, Frequency or Urgency Narrative Narrative: 77-year-old female history of left-sided kidney stones. She is seeing Dr. Marci Littlejohn about this and has pending surgery in July. Complaining of left flank pain this morning. With associated nausea and vomiting. Denies any fever. Denies any chills. Minimal hematuria. Prior similar symptoms: Yes Recent Illness/Hospitalization: No PFSH PFSH Medical History Kidney stone Home Medications hydrocodone-acetaminophen 5-325mg 5mg-325mg 1 tab PO Q6H PRN PRN Pain 3 days #12 TABLETS 05/10/23 [Rx Last Taken Unknown] terbinafine 1 % topical gel ea topical 07/09/23 [History Last Taken Unknown] Allergy/AdvReac Type Severity Reaction Status Date / Time No Known Allergies Allergy Verified 07/09/23 08:17 Social History Smoking Status: Never smoker ROS ROS ED ROS Narrative Left flank pain. Nausea vomiting. Review of Systems ROS Unobtainable: Denies due to encephalopathy Constitutional Constitutional ED: Denies chills or fever(s) ENT ENT ED: Denies ear pain Cardiovascular Cardiovascular: Denies chest pain Respiratory/Chest Respiratory/Chest: Denies cough or dyspnea Gastrointestinal Gastrointestinal: Reports nausea and vomiting; Denies constipation, diarrhea or melena Genitourinary Genitourinary ED: Reports hematuria; Denies dysuria or urinary frequency Musculoskeletal Musculoskeletal: Denies arthralgias, back pain, myalgias or neck pain Integumentary Denies abscess or Abrasions Neurologic Neurologic: Denies headache(s) Psychiatric Psychiatric: Denies anxiety Endocrine Endocrinology: Denies polydipsia Hematologic/Lymphatic Hematologic/Lymphatic: Denies easy bleeding Allergic/Immunologic Allergic/Immunologic ED: Denies mouth swelling, tongue swelling or urticaria EXAM Physical Exam Narrative Exam Narrative: Well-appearing 77-year-old female with no acute distress. Appears comfortable. But complaining of left flank pain. Friend present in room. HEENT exam un remarkable. Mytrex membranes. Lungs clear to auscultation. Heart regular rhythm rate about 60 no murmur. Abdomen soft, nontender, nondistended normal bowel sounds no peritoneal signs. Back there is no reproducible tenderness of the back, ribs or costovertebral angles. Moving all 4 extremities. Nontender no edema. Neurologically she is awake and alert with no focal motor deficits. Answering questions following commands. Const Vital Signs: 07/09/23 08:14 07/09/23 08:55 07/09/23 10:54 Temperature 98 F 97.6 F L Temperature Source Temporal Oral Pulse Rate 57 L 71 67 Respiratory Rate 16 16 16 Blood Pressure 125/81 H 146/68 H 134/74 H Blood Pressure Mean 95 94 94 Pulse Ox 98 94 98 Oxygen Delivery Method Room Air Room Air Room Air 07/09/23 10:56 Temperature 97.6 F L Temperature Source Oral Pulse Rate 67 Respiratory Rate 16 Blood Pressure 134/74 H Blood Pressure Mean 94 Pulse Ox 98 Oxygen Delivery Method Room Air Positive well nourished and well developed; Negative for obese, cachectic, contractures or unkempt General Appearance ED: well developed and NAD; Negative for unkempt, cachectic, contractures or pallor Nutritional Appearance: Negative for cachectic or obese HEENT Reports moist mucous membranes; Denies dry mucous membranes normocephalic and atraumatic; Negative for trauma or tenderness Mouth ED: No dry mucous membranes Mouth: No dry mucous membranes Eyes PERRL and EOMs intact bilaterally General Eye ED: Negative for pale conjunctiva, scleral icterus or other Neck no lymphadenopathy, supple and no JVD General: Negative for tenderness Carotids: Negative for other Lymph Lymphatic: Negative for other Resp normal respiratory effort and clear to auscultation bilaterally Effort and Inspection: Negative for respiratory distress Auscultation: Negative for rales, rhonchi or wheezes Cardio regular rate, regular rhythm, S1 normal heart sound, S2 normal heart sound and no murmurs Rate: Negative for bradycardia or tachycardic Rhythm: Negative for abnormal rhythm or other GI non-tender, non-distended and no masses Inspection: Negative for abdominal distention Auscultation: normoactive bowel sounds Palpation: soft; Negative for tender, guarding, rigid, hepatomegaly, splenomegaly, hernia, mass, pulsatile mass or rebound tenderness present Back/Spine no CVA tenderness General Back: Negative for CVA tenderness Cervical Spine: Negative for cervical spine tenderness Thoracic Spine / Upper Back: Negative for thoracic spinal tenderness Lumbar Spine / Lower Back: Negative for lumbar spinal tenderness Coccyx: Negative for other Extremity full ROM General Extremety ED: Negative for edema, tenderness or other findings General Extremity: Negative for edema or other findings Neuro CN's II-XII intact bilaterally and moves all extremities Sensorium / Orientation: alert, oriented to person, oriented to place and oriented to time; Negative for orientation impaired, confused, lethargic or stuporous Motor Exam: strength 5/5 throughout; Negative for general weakness or strength abnormal Psych mental status grossly normal and thought process normal Appearance: Negative for unkempt Attitude: No agitated Mood & Affect: Negative for depressed, anxious or tearful Skin no wounds General Skin Exam: Negative for jaundice or pallor Lesions: no lesions Rashes: no rashes Trauma: Negative for abrasion Nails: Negative for discolored MDM MDM MDM Narrative Medical decision making narrative: 77-year-old female known prior left kidney stone has upcoming surgery in July with urologist. Complaint left flank pain with nausea and vomiting. Will treat with IV morphine and Zofran. Urinalysis, labs and CT are being obtained. She did take an oxycodone at home. Patient treated with morphine 3 different doses for pain. Zofran for nausea. The urine is questionable. There is some contaminant with epithelial cells However she is a 25-50 white cells and 2+ bacteria with an obstruction on the left ID treated with IV Rocephin. I attempted and was able to get all of the patient's urologist but she is currently out of town and unable to do any intervention at this time. Patient requested I attempted transfer to [facility] not taking any transfers. We are currently [facility] to see speaking with that he can except her in transfer. History & Record Review Discussion w/independent historian: Patient Additional record(s) reviewed:: Prior inpatient record, Prior outpatient record, Prior ED visit, Prior labs and No prior records Lab Data Attestation: I reviewed the patient's lab results. Lab results narrative: CBC normal. White count of 6. H&H of 12 and 40. Platelets 188. Urinalysis shows cloudy urine with 250 occult blood. Microscopic UA shows 5-10 red cells. 25-50 white cells. It is contaminated with 5-10 epithelial cells. 2+ bacteria. Electrolytes show gap of 3. BUN 24 creatinine 0.6. Glucose 142. Labs: Laboratory Results - last 24 hr 07/09/23 07/09/23 08:30 08:43 WBC 6.8 RBC 4.53 Hgb 12.6 Hct 40.7 MCV 89.8 MCH 27.8 MCHC 31.0 L RDW Std Deviation 44.6 H RDW Coeff of Juliana 13.6 Plt Count 188 MPV 10.1 Immature Gran % (Auto) 0.400 Neut % (Auto) 71.1 H Lymph % (Auto) 22.5 Jay % (Auto) 3.8 Eos % (Auto) 1.3 Baso % (Auto) 0.9 Absolute Neuts (auto) 4.8 Absolute Lymphs (auto) 1.52 Nucleated RBC % 0 Sodium 138 Potassium 3.8 Chloride 108 H Carbon Dioxide 27.0 Anion Gap 3 L BUN 24 H Creatinine 0.66 Estim Creat Clear Calc 58.81 Est GFR (MDRD) Af Amer 112 Est GFR (MDRD) Non-Af 93 BUN/Creatinine Ratio 36.5 H Glucose 142 H Calcium 9.7 Urine Color Yellow Urine Clarity Sl. Cloudy Urine pH 7.0 Ur Specific [place] 1.015 Urine Protein 30 H Urine Glucose (UA) Normal Urine Ketones Negative Urine Occult Blood 250 H Urine Nitrite Negative Urine Bilirubin Negative Urine Urobilinogen Normal Ur Leukocyte Esterase 25 H Urine RBC 5-10 SEEN Urine WBC 25-50 SEEN Ur Squamous Epith Cells 5-10 SEEN Urine Bacteria 2+ Hyaline Casts 0 SEEN RBC Casts 0-5 SEEN WBC Casts 0 SEEN Urine Mucus 1+ Radiography Diagnostic Testing: Clinical Impression(s) from Imaging Studies Abdomen/Pelvis CT 07/09/23 08:26 IMPRESSION: Moderate left hydronephrosis secondary to a 7 x 10 mm distal ureteral calculus. Bilateral nephrolithiasis. No right hydronephrosis. Cholelithiasis. Chronic mild hepatomegaly. Colonic diverticulosis without acute diverticulitis. Electronically Signed: Nadiya Nguyen MD at 9:37 EST , Discharge Plan Triage Chief Complaint: Flank Pain ED Provider: Guerrero Scott Dx/Rx/DC Orders Clinical Impression: Left flank pain, Obstruction of left kidney, Kidney stone on left side Prescriptions: No Action hydrocodone-acetaminophen 5-325 mg tablet 1 tab PO Q6H PRN PRN (Reason: Pain) 3 Days Qty: 12 0RF terbinafine 1 % gel topical Primary Care Provider: Care Physician,No Primary Referrals: Care Physician,No Primary [Primary Care Provider] - Disposition Disposition: Acute Care Hospital
--- OUTSIDE RECORDS SUMMARY | 2023-07-09 08:39 | XMS RPT_ITS | CCD ---
Author Name Unknown Address [address] [place] [address] Organization [facility] Care Team Providers Care Contract Forester Name Role Phone AUTUMN COHN PA-C Attending Unavailable PHYSICIAN, NONE Primary Care Unavailable No, Pcp Primary Care Provider Unavailabl e João Villa MD Unavailable [phone] [place] ORDAZ Julianne A Unavailable [phone] João Villa MD Unavailable [phone] [place] ORDAZ Julianne A Unavailable [phone] Suly Parker MD Primary Care Provider [employer] Primary Care Provider Unav kam Cage MD, Sandro Primary Care Provider Suly Parker MD Primary Care Provider Jasbir Hackett MD Primary Care Provider Sonny Schmitz MD Primary Care Provider Toan DO Julianne A Unavailable [phone] DEEPAK POTTS Attending Unavailable YIN, HANG Primary Care Unavailable YIN HANG Attending Unavailable YIN, HANG Primary Care Unavailable YIN, HANG Referring Unavailable NIYAH FREEMAN Attending Unavailable INC, [employer] Primary Care Unavailable TOAN, JULIANNE Referring Unavailable YIN, HANG Primary Care Unavailable SARAH MCFARLANE Attending Unavailable YIN, HANG Primary Care Unavailable JOÃO VILLA Attending Unavailable INC, [employer] Primary Care Unavailable TYESHA CARRASCO Attending Unavailable [employer], [employer] Primary Care Unavailable TOAN, JULIANNE Attending Unavailable TOAN, JULIANNE Admitting Unavailable SONNY SCHMITZ Primary Care Unavailable SULY PARKER Referring Unavailable SONNY SCHMITZ Attending Unavailable YIN, HANG Primary Care Unavailable TOAN, JULIANNE Referring Unavailable TOAN, JULIANNE Attending Unavailable SONNY SCHMITZ Primary Care Unavailable KEITH, GIN Referring Unavailable SONNY SCHMITZ Attending Unavailable KEITH, GIN Primary Care Unavailable KEITH, GIN Referring Unavailable MANGO AHUJA Attending Unavailable [facility] Care Unavailable SARAH MCFARLANE Attending Unavailable [facility] Unavailable SIDDHARTH MOSS Attending Unavailable [facility] Primary Care Unavailable MANGO AHUJA Attending Unavailable [facility] Care Unavailable JULIANNE JOYA Attending Unavailable [facility] Unavailable TYESHA CARRASCO Attending Unavailable LUIS ALFREDO BUTLER Attending Unavailable KIM MARTEL Admitting Unavailable REESE TAVERAS Unavailable [facility] Care Unavailable [facility] Unavailable JULIANNE JOYA Attending Unavailable JULIANNE JOYA Admitting Unavailable KEITH, GIN Primary Care Unavailable MANGO AHUJA Attending Unavailable Allergies Allergy Classification Reported Allergen(s) Allergy Type Date of Onset Reaction(s) Facility (20 sources) oxyCODONE Drug Allergy 07-17-2022 [facility] Medications Current Medications Medication Drug Class(es) Dates [...] / neomycin 3.5 mg/ml / polymyxin b 01335 unt/ml otic suspension (14 sources) Aminoglycoside Antibacterial, Polymyxin-class Antibacterial, Corticosteroid Start: 11-15-2022 End: 02-14-2023 neomycin-polymyxi n-hydrocortisone (Cortisporin) 3.5-14489-3 otic suspension ibandronic acid 150 mg oral [...] 162.6 cm Clau Plasencia MD Work Phone: [employer] 04-05-2023 15:18-0400 Body mass index (BMI) [Ratio] 27.17 kg/m2 Clau Plasencia MD Work Phone: [employer] 04-05-2023 15:18-0400 Body temperature 97.59 [degF] Clau Plasencia MD Work Phone: [employer] 04-05-2023 15:18-0400 Body weight 71.8 kg Clau Plasencia MD Work Phone: [employer] 04-05-2023 15:18-0400 Diastolic blood pressure 75 mm[Hg] Clau Plasencia MD Work Phone: [employer] 04-05-2023 15:18-0400 Heart rate 73 /min Clau Plasencia MD Work Phone: [employer] 04-05-2023 15:18-0400 Systolic blood pressure 130 mm[Hg] Clau Plasencia MD Work Phone: [employer] 03-16-2023 15:58-0400 Body height 162.6 cm Erica Patrick MD Work Phone: [employer] 03-16-2023 15:58-0400 Body mass index (BMI) [Ratio] 27.62 kg/m2 Erica Patrick MD Work Phone: [facility] 03-16-2023 15:58-0400 Body temperature 97.7 [degF] Erica Patrick MD Work Phone: [facility] 03-16-2023 15:58-0400 Body weight 72.98 kg Erica Patrick MD Work Phone: [facility] 03-16-2023 15:58-0400 Diastolic blood pressure 64 mm[Hg] Erica Patrick MD Work Phone: [facility] 03-16-2023 15:58-0400 Heart rate 64 /min Erica Patrick MD Work Phone: [facility] 03-16-2023 15:58-0400 Systolic blood pressure 135 mm[Hg] Erica Patrick MD Work Phone: [facility] 03-06-2023 14:19-0400 Body height 163.8 cm Niyah Escalera CNP Work Phone: [facility] 03-06-2023 14:19-0400 Body mass index (BMI) [Ratio] 26.8 kg/m2 Niyah Escalera CNP Work Phone: [facility] 03-06-2023 14:19-0400 Body weight 71.94 kg Niyah Escalera CNP Work Phone: [facility] 03-06-2023 14:19-0400 Diastolic blood pressure 66 mm[Hg] Niyah Escalera CNP Work Phone: [facility] 03-06-2023 14:19-0400 Heart rate 80 /min Niyah Escalera CNP Work Phone: [facility] 03-06-2023 14:19-0400 Respiratory rate 18 /min Niyah Escalera CNP Work Phone: [facility] 03-06-2023 14:19-0400 SaO2% (BldA) [Mass fraction] 93 % Niyah Escalera CNP Work Phone: [facility] Encounters Encounter Date Encounter Type Care Provider Facility Start: 06-15-2023 Orders Only Clau seymour MD Work Phone: [facility] Infection Control Procedures Date Procedure Procedure Detail [...] 03-21-2024 Creatinine measurement Creatinine Le maria luz [facility] Start: 03-21-2024 Potassium measurement Potassium Leve l [facility] Start: 02-15-2024 Hepatitis A Vaccines (1 of 2 - Risk 2-dose series) Hepatitis A Vaccines (1 of 2 - Risk 2-dose series) [facility] Payers Date Payer Category Payer Unknown [id number] 2019 Medicare [id number] 2019 Private Health Insurance [id number] 1945 Unknown [id number] Social History Date Type Detail Facility Start: 06-29-2022 Tobacco smoking status NHIS Never sm oked tobacco [facility] Start: 06-29-2022 Tobacco use and exposure Smoke less tobacco non-user [facility] Start: 08-22-2022 End: 03-16-2023 Alcohol intake Lifetime non-drinker (finding) [facility] Start: 07-18-2022 End: 07-29-2022 History SDOH Alcohol Frequency 1 [facility] Start: 07-18-2022 History SDOH Alcohol Std Drinks 0 [facility] Start: 07-29-2022 History SDOH Financial 4 [facility] Start: 06-29-2022 History SDOH Transport Med 2 [facility] Start: 1945 Sex Assigned At Not on file [facility] Start: 08-12-2022 End: 03-06-2023 Exposure to SARS-CoV-2 (event) Not sure [facility] Start: 06-29-2022 End: 10-25-2022 History of Social function [facility] Start: 06-29-2022 End: 10-25-2022 Alcohol Use Disorder Identification Test - Consumption [AUDIT-C] [facility] How often to you hav e a drink containing alcohol? Monthly or less [facility] How many standard dr inks containing alcohol do you have on a typical day? 1 or 2 [facility] How often do you hav e 6 or more drinks on 1 occasion? Never [facility] How hard is it for y ou to pay for the very basics like food, housing, medical care, and heating Not very hard [facility] (I/We) worried [facility] (my/our) food would run out before (I/we) got money to buy more. Never true [facility] In the past 12 month s, has lack of transportation kept you from medical appointments or from getting medications? No [facility] In the past 12 month s, was there a time when you were not able to pay the mortgage or rent on time? 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 Thanks Shital Le LPN, on 06/15/23 at 11:13 AM. [facility] 06-15-2023 Miscellaneous Notes Just order the Lab as you would for [facility] and I will print and fax. Thanks Shital Le LPN, on 06/15/23 at 11:13 AM. Patient called stating that Dr. Plasencia wanted her to have Lab work done , due to taking Lamisil. Patient would like a Lab order faxed to [facility] in [place] fax no is [phone] Shital Le LPN, on 06/09/23 at 2:28 PM. documented in this encounter [facility] 06-09-2023 Telephone encounter Note Patient called stating that Dr. Plasencia wanted her to have Lab work done , due to taking Lamisil. Patient would like a Lab order faxed to [facility] in [place] fax no is [phone] Shital Le LPN, on 06/09/23 at 2:28 PM. [facility] 05-30-2023 Telephone encounter Note Spoke with pt that we are not contracted with [employer] and would be considered self pay - Pt states she is in [place] and will be follow up with [facility] and did not want to schedule surgery due to insurance and distance. [facility] 05-30-2023 Miscellaneous Notes Spoke with pt that we are not contracted with [employer] and would be considered self pay - Pt states she is in [place] and will be follow up with [facility] and did not want to schedule surgery due to insurance and distance. ----- Message from João Villa MD sent at 05/24/2023 4:38 PM EST ----- Cystoscopy, left ureteroscopy, laser lithotripsy and stent documented in this encounter [facility] 05-30-2023 Telephone encounter Note ----- Message from João Villa MD sent at 05/24/2023 4:38 PM EST ----- Cystoscopy, left ureteroscopy, laser lithotripsy and stent [facility] 05-29-2023 Telephone encounter Note Daughter Gema called back to help get pt scheduled for surgery for kidney stones with DR Villa. Spoke with Nora Villa's corporate scheduler who stated she will give Gema a call back. New Phone number [phone]. Routed message to Nora. [facility] 05-29-2023 Miscellaneous Notes Daughter Gema called back to help get pt scheduled for surgery for kidney stones with DR Villa. Spoke with Nora Villa's corporate scheduler who stated she will give Gema a call back. New Phone number [phone]. Routed message to Nora. Pt returning a call to office. Read Aida's message verbatim to pt. Pt states she has some fatigue from traveling but overall feels fine. Pt voiced understanding to keep appt 05/24/[address] Villa in [place]. Attempted to speak to pt via telephone regarding recent visit to [place] [facility] 05/10/2023 and request for appointment 05/12/2023. Pt did not answer, and voicemail box is not setup. Please reach out to pt to see if she is doing well. Pt has appt 05/24/[address] Villa that she can keep, appt does not need to be moved up at this time. Thank you! Name of caller: Yash Contact phone number: [phone] Relationship to Patient: patient Provider: [facility]: [...] call: Yes documented in this encounter [facility] 05-24-2023 Note Addended by: JOÃO VILLA on: 05/25/2023 04:54 PM Modules accepted: [facility] 05-24-2023 History of Present illness Narrative Images from the original note were not included. João Villa MD 05/24/2023 at 4:41 PM Office follow up PATIENT NAME: Yash Francois DATE OF : 1945 TODAY'S DATE: 05/24/2023 CHIEF COMPLAINT: Chief Complaint Patient presents with Nephrolithiasis [address] Joya in August [place] [facility] approx 2 weeks ago for stones [...] 4:41 PM documented in this encounter [facility] 05-24-2023 History of Present illness Narrative Images from the original note were not included. João Villa MD 05/24/2023 at 4:41 PM Office follow up PATIENT NAME: Yash Francois DATE OF : 1945 TODAY'S DATE: 05/24/2023 CHIEF COMPLAINT: Chief Complaint Patient presents with Nephrolithiasis [address] Joya in [place] [facility] approx 2 weeks ago for stones [...] BILIRUBINUR Negative 06/07/2022 Review: CT reviewed from [place] [facility] I discussed the procedure of ureteroscopy. [...] sent in documented in this encounter [facility] 05-24-2023 Miscellaneous Notes Addended by: JOÃO VILLA on: 05/25/2023 04:54 PM Modules accepted: Orders documented in this encounter [facility] 05-24-2023 Note Addended by: JOÃO VILLA on: 05/25/2023 04:54 PM Modules accepted: Orders [facility] 05-19-2023 Telephone encounter Note See documentation in the TE. [facility] 05-19-2023 Miscellaneous Notes See documentation in the [...] medication: Yes documented in this encounter [facility] 05-19-2023 Telephone encounter Note Spoke with Gema and let her know the medication has been sent to the pharmacy. Also told her lab needs done and pt needs an appointment. She is not currently at home and will call back. [facility] 05-19-2023 Miscellaneous Notes Spoke with Gema and [...] and recommendation. Attn office: please call Marta [phone] with provider's response. Patient understands care advice. No further needs at this time. Patient instructed to call back with new or worsening symptoms. Reason for Disposition [1] Caller has NON-URGENT medicine question about med that PCP prescribed AND [2] triager unable to answer question Protocols used: Medication Refill and Renewal [id number] documented in this encounter [employer] 05-19-2023 Telephone encounter Note I sent a refill to the pharmacy for this medication prior and requested an office visit so that LFTs can be monitored. Clau Plasencia MD 05/19/2023 11:01 AM [employer] Work Phone: 05-18-2023 Telephone encounter Note It is important for this patient to have her liver enzymes tested while being on this medication. Can we please have the patient scheduled for visit. Clau Plasencia MD 05/18/2023 5:43 PM [facility] 05-18-2023 Miscellaneous Notes It is important for [...] medication: Yes documented in this encounter [facility] 05-18-2023 Telephone encounter Note S: Patient spoke [...] and recommendation. Attn office: please call Marta [phone] with provider's response. Patient understands care advice. No further needs at this time. Patient instructed to call back with new or worsening symptoms. Reason for Disposition [1] Caller has NON-URGENT medicine question about med that PCP prescribed AND [2] triager unable to answer question Protocols used: Medication Refill and Renewal [id number] [facility] [employer] 05-16-2023 Telephone encounter Note Patient only has [...] prior to picking up the medication: Yes [facility] [employer] 05-12-2023 Telephone encounter Note Pt returning a call to office. Read Aida's message verbatim to pt. Pt states she has some fatigue from traveling but overall feels fine. Pt voiced understanding to keep appt 05/24/[address] Villa in [place]. [facility] [employer] 05-12-2023 Miscellaneous Notes Pt returning a call to office. Read Aida's message verbatim to pt. Pt states she has some fatigue from traveling but overall feels fine. Pt voiced understanding to keep appt 05/24/[address] Villa in [place]. Attempted to speak to pt via telephone regarding recent visit to [place] [facility] 05/10/2023 and request for appointment 05/12/2023. Pt did not answer, and voicemail box is not setup. Please reach out to pt to see if she is doing well. Pt has appt 05/24/[address] Villa that she can keep, appt does not need to be moved up at this time. Thank you! Name of caller: Yash Contact phone number: [phone] Relationship to Patient: patient Provider: [facility]: [...] their call: Yes documented in this encounter [employer] 05-12-2023 Telephone encounter Note Attempted to speak to pt via telephone regarding recent visit to [place] [facility] 05/10/2023 and request for appointment 05/12/2023. Pt did not answer, and voicemail box is not setup. Please reach out to pt to see if she is doing well. Pt has appt 05/24/[address] Villa that she can keep, appt does not need to be moved up at this time. Thank you! [employer] Phone: 05-12-2023 Telephone encounter Note Name of caller: Yash Contact phone number: [phone] Relationship to Patient: patient Provider: [facility]: [...] hours to return their call: Yes [facility] 05-10-2023 Telephone encounter Note Name of caller requesting page:[employer] Phone Number of caller: [phone] Facility requesting page: [place] [facility] Reason for Page: Requesting a doctor to doctor (Dr. Gonzalez Yañez) Provider paged: [facility] Name of paged provider: [facility] Page Placed to #: Secure Chat Time Page was sent or provider contacted: 11:35 pm Page Content: PAGED [facility] from [facility] for pt B. Francois 5 re doctor to doctor request (Dr. Gonzalez Yañez) [phone] [facility] 05-10-2023 Miscellaneous Notes Name of caller requesting page:[employer] Phone Number of caller: [phone] Facility requesting page: [facility] Reason for Page: Requesting a doctor to doctor (Dr. Gonzalez Yañez) Provider paged: Dr. [facility] Name of paged provider: [facility] Page Placed to #: Secure Chat Time Page was sent or provider contacted: 11:35 pm Page Content: PAGED [employer] from [facility] for pt B. Francois 5. re doctor to doctor request (Dr. Gonzalez Yañez) [phone] documented in this encounter [facility] 04-05-2023 History of Present illness Narrative Patient was able to ambulate safely to the examination room. Provider was not notified of possible fall risk Pt asked if they have been to specialist,been in ER /hospitalized or had testing since last visit. no Images from the original note were not included. [facility] [address] [facility] [address] Dept: [phone] Dept Loc: [phone] Visit type: Established patient Reason for Visit: [...] efficacy.. Subjective 77-year-old female presented to the [facility] for follow-up for onychomycosis treatment and liver [...] No recent imaging/testing reviewed Clau Plasencia MD [facility] 04/05/23 3:53 PM documented in this encounter [facility] 04-05-2023 History of Present illness Narrative Patient was able to ambulate safely to the examination room. Provider was not notified of possible fall risk Pt asked if they have been to specialist,been in ER /hospitalized or had testing since last visit. no Images from the original note were not included. [facility] [address] [facility] [address] Dept: [phone] Dept Loc: [phone] Visit type: Established patient Reason for Visit: [...] efficacy.. Subjective 77-year-old female presented to the [facility] for follow-up for onychomycosis treatment and liver [...] No recent imaging/testing reviewed Sarah Mcfarlane MD [facility] 04/06/23 10:02 AM INDIRECT SUPERVISION THIS SERVICE IS TO BE BILLED UNDER THE PRIMARY CARE EXCEPTION ([facility]) During or immediately after this visit, I discussed this case with the treating resident. Our discussion included the history obtained by the resident, the resident's exam findings, and the resident's treatment plan. The resident's note reflects the information we discussed, and I agree with the resident's assessment and treatment plan. documented in this encounter [facility] 03-27-2023 Note Needs appt for re-evaluation. [facility] 03-27-2023 Telephone encounter Note Patient called and scheduled an appointment on 04/05 AT 315PM [facility] 03-27-2023 Miscellaneous Notes Patient called and scheduled an appointment on 04/05 AT 315PM Needs appt for re-evaluation. Name of caller: Yash Contact phone number: [phone] Relationship to Patient: patient Provider: tiarra Oh: [...] call: no documented in this encounter [facility] 03-27-2023 Telephone encounter Note Needs appt for re-evaluation. [facility] 03-27-2023 Telephone encounter Note Name of caller: Yash Contact phone number: [phone] Relationship to Patient: patient Provider: [facility] Practice: [...] hours to return their call: no [facility] 03-16-2023 History of Present illness Narrative Pt asked if they have been to specialist,been in ER /hospitalized or had testing since last visit. Yes lung doctor Patient was able to ambulate safely to the examination room. Provider was not notified of possible fall risk Images from the original note were not included. [facility] [address] [facility] [address] Dept: [phone] Dept Loc: [phone] Visit type: Established patient Reason for Visit: [...] Status: She is alert. Erica Patrick MD [facility] 03/17/23 1:40 PM documented in this encounter [facility] 03-16-2023 History of Present illness Narrative Pt asked if they have been to specialist,been in ER /hospitalized or had testing since last visit. Yes lung doctor Patient was able to ambulate safely to the examination room. Provider was not notified of possible fall risk Images from the original note were not included. [facility] [address] [facility] [address] Dept: [phone] Dept Loc: [phone] Visit type: Established patient Reason for Visit: [...] Status: She is alert. Erica Patrick MD [facility] 03/17/23 1:40 PM INDIRECT SUPERVISION THIS SERVICE IS TO BE BILLED UNDER THE PRIMARY CARE EXCEPTION ([facility]) During or immediately after this visit, I discussed this case with the treating resident. Our discussion included the history obtained by the resident, the resident's exam findings, and the resident's treatment plan. The resident's note reflects the information we discussed, and I agree with the resident's assessment and treatment plan. documented in this encounter [facility] 03-08-2023 Telephone encounter Note Pt LVM returning our call. Called pt and unable to LVM as mailbox is not set up. [facility] 03-08-2023 Miscellaneous Notes Pt LVM returning our call. Called pt and unable to LVM as mailbox is not set up. Called Yash at number listed below and there is no VM set up. Name of Caller: Yash Contact Phone Number: [phone] Reason for Appointment: Pt missed appt for 9.14 and would like to r/s appt. Please call her The appt was for *Follow up in about 6 months (around 02/22/2023) for stone follow up (KUB/CONSUELO prior). Office Name: urology Medication Refills need, if any: n/a Medication Name: n/a documented in this encounter [facility] 03-08-2023 Telephone encounter Note Called Yash at number listed below and there is no VM set up. [facility] 03-08-2023 Telephone encounter Note Name of Caller: Yash Contact Phone Number: [phone] Reason for Appointment: Pt missed appt for 9.14 and would like to r/s appt. Please call her The appt was for *Follow up in about 6 months (around 02/22/2023) for stone follow up (KUB/CONSUELO prior). Office Name: urology Medication Refills need, if any: n/a Medication Name: n/a [facility] 03-06-2023 History of Present illness Narrative [facility] [address] [address] Dept: [phone] Dept Visit type: Reason for Visit: New [...] chemicals, or exotic. 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 Energy level is adequate. No night sweats [...] the visit. documented in this encounter [facility] 03-06-2023 Instructions Glenny Cazares MA - 03/06/2023 2:40 PM EDT YOUR APPOINTMENT TODAY WAS WITH THE [facility] LUNG NODULE CLINIC, COPD CLINIC, PULMONARY AND SLEEP MEDICINE OFFICE. PLEASE CALL OUR OFFICE AT [phone] IF YOU HAVE NOT RECEIVED YOUR TEST [...] to make improvements. COVID-19 VACCINATION INFORMATION: PH. [phone] [email or web address] [facility] Central Scheduling [phone] [facility] Sleep Scheduling [phone] documented in this encounter [facility] 02-14-2023 Telephone encounter Note Returned phone call., voicemail not set up yet Gloria Anderson [facility] 02-14-2023 Miscellaneous Notes Returned phone call., voicemail not set up yet Gloria Anderson Preferred contact number: [phone] Reason for Visit: Pt started a new job and needs to cx and r/s appt for 02.23.23. Please call to r/s Urgency of Appointment: urology Medications in need of refill: n/a documented in this encounter [facility] 02-14-2023 History of Present illness Narrative Patient was able to ambulate safely to the examination room. Provider was not notified of possible fall risk Pt asked if they have been to specialist,been in ER /hospitalized or had testing since last visit. no Images from the original note were not included. [facility] [address] [facility] [address] Dept: [phone] Dept Loc: [phone] Visit type: Established patient Reason for Visit: Follow-up Assessment and Plan 1. Multiple lung nodules - [facility] 2. Benign paroxysmal positional vertigo of right ear - [facility] Physical Therapy Jany Wyatt 3. Onychomycosis [...] Status: She is alert. Sandro Cage MD [facility] Medicine 02/14/23 4:23 PM documented in this encounter [facility] 02-14-2023 History of Present illness Narrative Patient was able to ambulate safely to the examination room. Provider was not notified of possible fall risk Pt asked if they have been to specialist,been in ER /hospitalized or had testing since last visit. no Images from the original note were not included. [facility] [address] [facility] [address] Dept: [phone] Dept Loc: [phone] Visit type: Established patient Reason for Visit: Follow-up Assessment and Plan 1. Multiple lung nodules - [facility] 2. Benign paroxysmal positional vertigo of right ear - [facility] Physical Therapy Jany Wyatt 3. Onychomycosis [...] Status: She is alert. Sandro Cage MD [facility] 02/14/23 4:23 PM Images from the original note were not included. INDIRECT SUPERVISION THIS SERVICE IS TO BE BILLED UNDER THE PRIMARY CARE EXCEPTION ([facility] -) During or immediately after this visit, I discussed this case with the treating resident. Our discussion included the history obtained by the resident, the resident's exam findings, and the resident's treatment plan. The resident's note reflects the information we discussed, and I agree with the resident's assessment and treatment plan. -Ghulam Ortiz MD, [facility] documented in this encounter [facility] 02-14-2023 Telephone encounter Note Attempted to call pt to reschedule previous No show WASTE PAPER HAMMERMILL OPERATOR appointment. Unable to leave a voicemail as mailbox has not been set up. [facility] 02-14-2023 Miscellaneous Notes Attempted to call pt to reschedule previous No show WASTE PAPER HAMMERMILL OPERATOR appointment. Unable to leave a voicemail as mailbox has not been set up. Name of caller: Yash Contact phone number: [phone] Relationship to Patient: patient Provider: Alee Practice: Pulmonology Chief Complaint/Reason for Call: Patient would like to schedule a new patient appointment. She would like the latest possible time of day available for appt. Please call [phone] Best time of day caller can be reached: any Patient advised that office/PCP has 24-48 business hours to return their call: Yes documented in this encounter [facility] 02-13-2023 Telephone encounter Note Name of caller: Yash Contact phone number: [phone] Relationship to Patient: patient Provider: Alee Practice: Pulmonology Chief Complaint/Reason for Call: Patient would like to schedule a new patient appointment. She would like the latest possible time of day available for appt. Please call [phone] Best time of day caller can be reached: any Patient advised that office/PCP has 24-48 business hours to return their call: Yes [facility] 02-12-2023 Telephone encounter Note Preferred contact number: [phone] Reason for Visit: Pt started a new job and needs to cx and r/s appt for 02.23.23. Please call to r/s Urgency of Appointment: urology Medications in need of refill: n/a [facility] 01-25-2023 Note Pt called into nurse line to schedule a new patient appointment. Referral in chart for multiple lung nodules. Please advise, thank you! [facility] 01-16-2023 History of Present illness Narrative Patient was able to ambulate safely to the examination room. Provider was not notified of possible fall risk Pt asked if they have been to specialist,been in ER /hospitalized or had testing since last visit. yes Images from the original note were not included. [place] [address] [facility] [address] Dept: [phone] Dept Loc: [phone] Visit type: Established patient Reason for Visit: Results Assessment and Plan 1. Liver lesion - US abdomen limited 2. Multiple lung nodules - [facility] - [facility] 3. Acute bilateral low back pain without sciatica - [facility] Physical Therapy Jany Diez [place] [facility] showed 2mm nodule. HX of hemoptysis. [...] Status: She is alert. Sandro Cage MD [facility] 01/16/23 4:51 PM documented in this encounter [facility] 01-16-2023 History of Present illness Narrative Patient was able to ambulate safely to the examination room. Provider was not notified of possible fall risk Pt asked if they have been to specialist,been in ER /hospitalized or had testing since last visit. yes Images from the original note were not included. [place] [address] [facility] [address] Dept: [phone] Dept Loc: [phone] Visit type: Established patient Reason for Visit: Results Assessment and Plan 1. Liver lesion - US abdomen limited 2. Multiple lung nodules - [facility] - [facility] 3. Acute bilateral low back pain without sciatica - [facility] Physical Therapy Jany Wyatt -[facility] showed [...] Status: She is alert. Sandro Cage MD [facility] 01/16/23 4:51 PM INDIRECT SUPERVISION THIS SERVICE [...] treatment plan. documented in this encounter [facility] 11-30-2022 Note Referral placed agai n today to Pul. [facility] 11-30-2022 Note Addended by: Anita PARKER on: 11/30/2022 08:20 PM Modules accepted: Orders [facility] 11-30-2022 Note Addended by: Anita PARKER on: 11/30/2022 08:20 PM Modules accepted: Orders [facility] 11-30-2022 Miscellaneous Notes Addended by: SULY PARKER on: 11/30/2022 08:20 PM Modules accepted: Orders Referral placed again today to Pul. Already called patient back. Pt states she missed a call and believes it might have been from you. If so she states she is available all day today to discuss xray results. documented in this encounter [facility] 11-30-2022 Telephone encounter Note Referral placed again today to Pulm. [facility] 11-25-2022 Telephone encounter Note Noted. [facility] 11-25-2022 Miscellaneous Notes Noted. Rx sent. Will do peer to peer for CT chest. Name of caller: Gema Contact phone number: [phone] Relationship to Patient: daughter Provider: Dr Parker Practice: [facility] Chief Complaint/Reason for Call: Gema called in regards to the cough medicine Dr Parker was supposed to send to the [facility] pharmacy when pt was seen on 11/16/22. Said they discussed a lot and Dr Parker may have just forgotten and would like for that to be called in and a call back once done so she is updated. Thank you. [facility] [address] [place] [address] Best time of day caller can be reached: any Patient advised that office/PCP has 24-48 business hours to return their call: No documented in this encounter [facility] 11-25-2022 Telephone encounter Note Rx sent. Will do peer to peer for CT chest. [facility] 11-25-2022 Telephone encounter Note Message released to patient as written. yes Patient's further questions if applicable: none Were all questions from office addressed or relayed to the patient from encounter: Yes [facility] 11-25-2022 Miscellaneous Notes Message released to patient [...] again later documented in this encounter [facility] 11-25-2022 Telephone encounter Note Attempted to contact the patient but there was no answer and the voicemail box has not been set up yet. [facility] 11-25-2022 Telephone encounter Note Name of caller: Gema Contact phone number: [phone] Relationship to Patient: daughter Provider: Dr Parker Practice: [facility] Chief Complaint/Reason for Call: Gema called in regards to the cough medicine Dr Parker was supposed to send to the [facility] pharmacy when pt was seen on 11/16/22. Said they discussed a lot and Dr Parker may have just forgotten and would like for that to be called in and a call back once done so she is updated. Thank you. [facility] [address] [place] [address] Best time of day caller can be reached: any Patient advised that office/PCP has 24-48 business hours to return their call: No [facility] 11-22-2022 Telephone encounter Note Pt is scheduled Monday12/30/2022 at 1:[address] chest and CT abdomen NPO 4 hrs prior to test She will also need to have a creatinine level drawn prior to appt Could not leave a voicemail, will try again later [facility] 11-18-2022 Note Chronic findings. No acute pulmonary process. In view of the clinical history, consider CT which is more sensitive for pulmonary evaluation. Left renal calculus. Report Dictated on Electronically Signed By: Mray Ruano Electronically Signed Date/Time: 11/18/2022 2:52 PM EDT [facility] 11-18-2022 Telephone encounter Note Already called patient back. [facility] 11-18-2022 Telephone encounter Note Pt states she missed a call and believes it might have been from you. If so she states she is available all day today to discuss xray results. [facility] 11-16-2022 History of Present illness Narrative Pt asked if they have been to specialist,been in ER /hospitalized or had testing since last visit. ENT Patient was able to ambulate safely to the examination room. Provider was not notified of possible fall risk [facility] [address] [facility] [address] Dept: [phone] Dept Loc: [phone] Visit type: Established Reason for Visit: Follow-up Assessment and Plan Yash was seen today for follow-up. Diagnoses and all orders for this visit: Hemoptysis (Primary) - XR chest 2 views; Future Colon cancer screening - [facility]; Future Concern for possible underlying malignancy. Will get CXR. Ok to call Daughter regarding result ([phone]). May need further work up with CT [...] Multiple Vitamins-Minerals (ZINC PO) Take by mouth. mzmdhmxv-piuhyruhh-habkjiyxvquvqh (Cortisporin) 3.5-10055-2 otic suspension No facility-administered medications prior to [...] and Summarized Labs: Suly Parker MD PGY-3 Quality Assurance Monitor Final 11/17/2022 8:33 PM INDIRECT SUPERVISION THIS SERVICE [...] treatment plan. documented in this encounter [facility] 10-28-2022 Telephone encounter Note Noted. Thanks. [facility] 10-28-2022 Miscellaneous Notes Noted. Thanks. Name of caller: yash Contact phone number: [phone] Relationship to Patient: patient Provider: Dr. Bernardo Practice: [facility] Chief Complaint/Reason for Call: pt called in states pcp wanted info on he ent , it is [facility], and their phone is [phone] Best time of day caller can be reached: AM Patient advised that office/PCP has 24-48 business hours to return their call: Yes documented in this encounter [facility] 10-27-2022 Telephone encounter Note Name of caller: yash Contact phone number: [phone] Relationship to Patient: patient Provider: Dr. Bernardo Practice: [facility] Chief Complaint/Reason for Call: pt called in states pcp wanted info on he ent , it is [facility], and their phone is [phone] Best time of day caller can be reached: AM Patient advised that office/PCP has 24-48 business hours to return their call: Yes [facility] 09-19-2022 Telephone encounter Note Scheduled patient for 10/25/22. [facility] 09-19-2022 Miscellaneous Notes Scheduled patient for 10/25/22. Called patient to reschedule her 10/26/[address] Parker due to him being out of the office. Patient stated that she will check her schedule at work tonight and call us back tomorrow. Patient asked for refill on Boniva. Refill request sent to Dr. Bernardo. documented in this encounter [facility] 09-15-2022 Miscellaneous Notes Called patient to reschedule her 10/26/[address] Parker due to him being out of the office. Patient stated that she will check her schedule at work tonight and call us back tomorrow. Patient asked for refill on Boniva. Refill request sent to Dr. Bernardo. documented in this encounter [facility] 09-15-2022 Telephone encounter Note Called patient to reschedule her 10/26/[address] Parker due to him being out of the office. Patient stated that she will check her schedule at work tonight and call us back tomorrow. Patient asked for refill on Boniva. Refill request sent to Dr. Bernardo. [facility] 08-24-2022 Note New referral placed to a physician office in [place]. [facility] 08-22-2022 Note Cystoscopy with uret eral [...] renal US Julianne Joya DO Reconstructive Urology [address], [address] [place] [id number] Office: Fax: [facility] 08-16-2022 Note Patient: Yash forde Procedure Summary Date: 08/16/22 Room / Location: [address] Operating Room Anesthesia Start: 1440 Anesthesia [...] once all PACU criteria has been met. [facility] 08-16-2022 Note Patient: Yash forde Procedure Summary Date: 08/16/22 Room / Location: [address] Operating Room Anesthesia Start: 1440 Anesthesia [...] opportunity for questions and acknowledgement of understanding. [facility] 08-16-2022 Note Airway Date/Time: 08/16/2022 2:49 PM Urgency: scheduled Airway not difficult General Information and Staff Patient location during procedure: Procedural Resident/PROPERTY CARETAKER: Kiley Arriola APRN - PROPERTY CARETAKER Performed: PROPERTY CARETAKER Indications and Patient Condition Indications for airway management: anesthesia Sedation level: Asleep Preoxygenated: yes Patient position: sniffing Mask difficulty assessment: 0 - not attempted Final Airway Details Final airway type: supraglottic airway Successful airway: Igel Size 4 Number of attempts at approach: 1 Number of other approaches attempted: 0 [facility] 08-16-2022 Note Interval History and Physical [...] there are no changes to the H&P. [facility] 08-05-2022 History of Present illness Narrative Images from the original note were not included. [facility] Cardiology Office Note DATE of SERVICE: 08/05/22 TIME of SERVICE: 9:38 AM Reason for Visit: Chief Complaint Patient presents with Hospital Follow-up History ofPresent Illness: Yash Francois is a 76 y.o. female who presents in office today after her recent admission to [facility] 07/17/2022-07/23/2022. She had presented due to a [...] Follow-up-3 months and as needed. Siddharth Moss APRN/BRIDGE CARPENTER documented in this encounter [facility] 08-05-2022 Miscellaneous Notes Addended by: SUZANNE LEROY on: 09/30/2022 09:37 AM Modules accepted: Orders documented in this encounter [facility] 08-05-2022 Note Addended by: SUZANNE SKINNER on: 09/30/2022 09:37 AM Modules accepted: Orders [facility] 07-29-2022 Note Patient: Yash forde Procedure Information Date/Time: 08/02/22 1200 Procedures: CYSTOSCOPY AND RETROGRADE PYELOGRAM, LEFT URETEROSCOPY LASER LITHOTRIPSY, LEFT URETERAL STENT CHANGE (Urethra) CYSTOSCOPY WITH URETEROSCOPY AND OR PYELOSCOPY WITH REMOVAL OR MANIPULATION CALCULUS WITH LITHOTRIPSY (Urethra) CYSTOSCOPY WITH INSERTION URETERAL STENT (Urethra) Location: [facility] OR [address] [place] [address] Operating Room Surgeons: Julianne Joya, DO Relevant [...] Jared Vickers MD on 07/21/2022 10:10 AM [facility] 07-23-[address] [facility] Hospitalist Discharge Summary Yash [...] Your Medications These medications were sent to [id number] - [facility] [address] [address] cephalexin 500 MG capsule metoprolol succinate XL 50 MG 24 hr tablet phenazopyridine 200 MG tablet Recommended Follow-up: Siddharth Moss, PARADI OPERATOR - BRIDGE CARPENTER [address] [facility], [address] [place] [address] Follow up on 08/05/2022 follow up hospital Cardiology appointment at 9:00 am. Complexity of Follow up: [] Moderate Complexity: follow up within 7-14 calendar days (82765) [x] Severe Complexity: follow up within 7 calendar days (10405) Follow up Testing, Pending results or Referrals [...] further instructions E (more content not included)... [facility] 07-22-2022 Note [facility] Hospitalist Progress Note 07/23/2022 Subjective: Admit Date: 07/17/2022 PCP: Pcp No (Inactive) Room#: B1-156/B1-156 A Interval History: Patient denies any flank pain, has few episodes of loose watery stools, CDIFF test ordered. Adult diet Regular @[id number]@ 24HR INTAKE/OUTPUT: No intake or output data [...] mg, 50 mg, Oral, Daily, Siddharth Moss, PARADI OPERATOR - BRIDGE CARPENTER, 50 mg at 07/23/221008 ondansetron ODT (Zofran-ODT) [...] abdomen and pelvis (more content not included)... [facility] 07-21-2022 Telephone encounter Note Message released to patient as written. Patient's further questions if applicable: N/A Were all questions from office addressed or relayed to the patient from encounter: Yes [facility] 07-21-2022 Miscellaneous Notes Message released to patient as written. Patient's further questions if applicable: N/A Were all questions from office addressed or relayed to the patient from encounter: Yes documented in this encounter [facility] 07-21-2022 Note ANGEL Arias WASTE PAPER HAMMERMILL OPERATOR 07/21/2022 at 12:06 PM Urology Progress Note [...] results and d (more content not included)... [facility] 07-21-2022 Note ANGEL Arias WASTE PAPER HAMMERMILL OPERATOR 07/21/2022 at 12:06 PM Urology Progress Note [...] results and d (more content not included)... [facility] 07-21-2022 Note SURGERY SCHEDULING PROCEDURE: cystoscopy retrograde pyelogram left ureteroscopy laser lithotripsy left ureteral stent change. DIAGNOSIS: left kidney and ureteral calculus FACILITY: LOCATED [facility]IN [facility] DETAILS: OUTPT ANESTHESIA: GENERAL TIME REQUESTED: 1 HR DATE REQUESTED: 08/02/22 POST OP FOLLOW UP: cysto stent removal 1 wk REP REQUESTED: MEDICAL CLEARANCE: no CONFERENCE: NO COVID TESTING: NO Not on blood thinners Orders placed [facility] 07-21-2022 Note [facility] Hospitalist Progress Note 07/21/2022 Subjective: Admit Date: 07/17/2022 PCP: Pcp No (Inactive) Room#: B1-156/B1-156 A Interval History: Patient denies any flank pain or urinary pain today, continues to have low-grade fever Adult diet Regular @[id number]@ 24HR INTAKE/OUTPUT: Intake/Output Summary (Last 24 hours) [...] mg, Oral, Daily, Siddharth Moss APRN - BRIDGE CARPENTER, 50 mg at 07/21/22 0858 ondansetron ODT [...] multiple renal calc (more content not included)... [facility] 07-20-2022 Note [facility] V[facility] [place] 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 Adult diet Regular @[id number]@ 24HR INTAKE/OUTPUT: No intake or output data [...] patient on ceftriaxo (more content not included)... [facility] 07-20-2022 Note ANGEL Arias WASTE PAPER HAMMERMILL OPERATOR 07/20/2022 at 9:12 AM Urology Progress Note [...] were worn with physical contact of patient. [facility] 07-19-2022 Note Jesus Allen APRN - [place] WASTE PAPER HAMMERMILL OPERATOR 07/19/2022 at 10:59 AM Urology Progress Note [...] - nausea has improved. --Jesus Allen CNP, PARADI OPERATOR on 07/19/2022 at 10:59 AM An electronic [...] were worn with physical contact of patient. [facility] 07-19-2022 Note [facility] CARDIOL OGY CONSULTATION Patient Name: Yash Francois [...] and relatively brief. 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 She denies chest pain or shortness of [...] No gallop. Pulmonary (more content not included)... [facility] 07-19-2022 Note CDU Progress Note 07/19/2022 [...] Value Ref Range (more content not included)... [facility] 07-18-2022 Note CDU History and Phys [...] Neutrophils Absolute 5.4 (more content not included)... [facility] 07-06-2022 Note Patient: Yash forde Procedure Summary Date: 07/06/22 Room / Location: [address] Operating Room Anesthesia Start: 1251 Anesthesia [...] once all PACU criteria has been met. [facility] 07-06-2022 Note Patient: Yash forde Procedure Summary Date: 07/06/22 Room / Location: [address] Operating Room Anesthesia Start: 1251 Anesthesia [...] opportunity for questions and acknowledgement of understanding. [facility] 07-06-2022 Note Airway Date/Time: 07/06/2022 12:55 PM Urgency: scheduled Airway not difficult General Information and Staff Patient location during procedure: Procedural Anesthesiologist: Matthew Rueda Jr., MD Resident/PROPERTY CARETAKER: Julián Anguiano APRN - PROPERTY CARETAKER Performed: PROPERTY CARETAKER Indications and Patient Condition Indications for airway management: anesthesia Preoxygenated: yes Patient position: sniffing MILS maintained throughout Mask difficulty assessment: 1 - vent by mask Final Airway Details Final airway type: supraglottic airway Successful airway: Igel Size 3 Number of attempts at approach: 1 [facility] 06-29-2022 Note Patient: Yash forde Procedure Information Date/Time: 07/06/22 1100 Procedures: CYSTOSCOPY, RIGHT RETROGRADE PYELOGRAM, LEFT EXTRACORPORAL SHOCKWAVE LITHOTRYPSY ESWL CYSTOSCOPY AND PYELOGRAM (Urethra) Location: [address] Operating Room Surgeons: Julianne Joya, DO [...] patient is NPO ERAS Meds Tylenol Pepcid [place] - Wears hearing aids BLAYNE Screening STOP-Bang [...] found for this or any previous visit. [facility] 06-29-2022 Note Comprehensive PreSur gical History and Physical ? Name: Yash Francois : 1945 (Age-76 y.o.) Date of Service: Pt seen/examined on 06/29/2022 Procedure Information Date/Time: 07/06/22 1100 Procedures: CYSTOSCOPY, RIGHT RETROGRADE PYELOGRAM, LEFT EXTRACORPORAL SHOCKWAVE LITHOTRYPSY ESWL CYSTOSCOPY AND PYELOGRAM (Urethra) Location: [address] Operating Room Surgeons: Julianne Joya DO [...] Hx of HTN, HLD, DM, CAD, CHF, IN, TIA/CVA, DVT/PE, Asthma/COPD, BLAYNE Dental? - Missing [...] Pain consult n (more content not included)... [facility] 06-29-2022 Note Comprehensive PreSur gical History and Physical ? Name: Yash Francois : 1945 (Age-76 y.o.) Date of Service: Pt seen/examined on 06/29/2022 Procedure Information Date/Time: 07/06/22 1100 Procedures: CYSTOSCOPY, RIGHT RETROGRADE PYELOGRAM, LEFT EXTRACORPORAL SHOCKWAVE LITHOTRYPSY ESWL CYSTOSCOPY AND PYELOGRAM (Urethra) Location: [address] Operating Room Surgeons: Julianne Joya DO [...] Hx of HTN, HLD, DM, CAD, CHF, IN, TIA/CVA, DVT/PE, Asthma/COPD, BLAYNE Dental? - Missing [...] Pain consult n (more content not included)... [facility] 06-10-2022 Telephone encounter Note Please schedule next available [facility] 06-10-2022 Miscellaneous Notes Please schedule next available [...] CLEARANCE: Yes documented in this encounter [facility] 06-07-2022 Telephone encounter Note OR Request for [...] NEEDS: ESWL PAT: yes MEDICAL CLEARANCE: Yes [facility] [employer] [facility] Diagnosis Hemoptysis [facility] Diagnosis Hemoptysis- Primary Colon cancer screening Special screening for malignant neoplasms, colon Osteoporosis, unspecified osteoporosis type, unspecified pathological fracture presence Hemoptysis [facility] Diagnosis Hemoptysis- Primary [facility]* Diagnosis Diastolic heart failure, unspecified HF chronicity (HCC)- Primary Kidney stone on left side [facility]* Diagnosis Multiple lung nodules- Primary Other diseases of lung, not elsewhere classified Liver lesion Other specified disorders of liver Acute bilateral low back pain without sciatica [facility] Diagnosis Multiple lung nodules- Primary Other diseases of lung, not elsewhere classified Liver lesion Other specified disorders of liver Acute bilateral low back pain without sciatica [facility] Diagnosis Multiple lung nodules- Primary Other diseases of lung, not elsewhere classified Benign paroxysmal positional vertigo of right ear Onychomycosis Dermatophytosis of nail [facility]* Diagnosis Kidney stone on left side [facility]* Diagnosis Pulmonary nodules- Primary Other diseases of lung, not elsewhere classified History of hemoptysis [facility]* Diagnosis Onychomycosis- Primary Dermatophytosis of nail [facility] Diagnosis Onychomycosis- Primary Dermatophytosis of nail [facility]* Diagnosis Onychomycosis- Primary Dermatophytosis of nail Adverse effect of terbinafine [facility]* Diagnosis Onychomycosis- Primary Dermatophytosis of nail Therapeutic drug monitoring Encounter for therapeutic drug monitoring [facility] Diagnosis Chronic cough- Primary Cough [facility] Diagnosis Onychomycosis Dermatophytosis of nail [facility]* Diagnosis Onychomycosis Dermatophytosis of nail [facility] Diagnosis Kidney stone on left side- Primary Dysuria Hydronephrosis with renal and ureteral calculous obstruction [facility]* Diagnosis Kidney stone on left side- Primary Dysuria Hydronephrosis with renal and ureteral calculous obstruction [facility] Diagnosis Medication side effect- Primary documented in this encounter [facility] for referral (narrative)* Consultation (Routine) - Pending Review Specialty Diagnoses / Procedures Referred By Nino good Referred To Contact Gastroenterology Diagnoses Encounter for screening for malignant neoplasm of colon Procedures [place] OFFICE/OUTPATIENT [facility] 60-74 MINUTES Suly Parker MD [address] [place] [address] Sana Benedict MD [address] [place] [address], [address] [place] [address] Referral ID Status Reason Start Date Expiration Date Visits Requested Visits Authorized [id number] Pending Review Specialty Services Required 11/16/2022 11/16/2023 1 1 [facility] for referral (narrative)* Consultation (Routine) - Pending Review Specialty Diagnoses / Procedures Referred By Contac t Referred To Contact Pulmonology Diagnoses Hemoptysis Procedures [place] OFFICE/OUTPATIENT [facility] MDM 60-74 MINUTES Suyl Parker MD [address] [place] [address] Darshan Vickers MD [address] [place] [address] Referral ID Status Reason Start Date Expiration Date Visits Requested Visits Authorized [id number] Pending Review Specialty Services Required 11/30/2022 11/30/2023 1 1 [facility] for referral (narrative)* Consultation (Routine) - Pending Review Specialty Diagnoses / Procedures Referred By Contac t Referred To Contact Pulmonology Diagnoses Multiple lung nodules Procedures [place] OFFICE/OUTPATIENT [facility] MDM 60-74 MINUTES Sandro Cage MD [address] [place] [address] [facility] [address] [place] [address] Referral ID Status Reason Start Date Expiration Date Visits Requested Visits Authorized [id number] Pending Review Specialty Services Required 01/16/2023 01/16/2024 1 1 * Therapy (Routine) - Pending Review Specialty Diagnoses / Procedures Referred By Contac t Referred To Contact Physical Therapy Diagnoses Acute bilateral low back pain without sciatica Procedures [place] OFFICE/OUTPATIENT [facility] 60-74 MINUTES Sandro Cage MD [address] [place] [address] [address] [place] [address] Referral ID Status Reason Start Date Expiration Date Visits Requested Visits Authorized [id number] Pending Review Eval and Treat 01/16/2023 07/15/2023 99 99 * Consultation (Routine) - Pending Review Specialty Diagnoses / Procedures Referred By Contac t Referred To Contact Pulmonology Diagnoses Multiple lung nodules Procedures [place] OFFICE/OUTPATIENT [facility] 60-74 MINUTES Sandro Cage MD [address] [place] [address] [facility] [place] [address] Referral ID Status Reason Start Date Expiration Date Visits Requested Visits Authorized [id number] Pending Review Specialty Services Required 01/16/2023 01/16/2024 [...] right ear Sandro Cage MD [address] [place] [address] [address] [facility] [place] [address] Referral ID Status Reason Start Date Expiration Date Visits Requested Visits Authorized [id number] Pending Review Eval and Treat 02/14/2023 08/13/2023 99 99 Specialty Diagnoses / Procedures Referred By Contac t Referred To Contact Pulmonology Diagnoses Multiple lung nodules Procedures [place] OFFICE/OUTPATIENT [facility] 60-74 MINUTES Sandro Cage MD [address] [place] [address] [facility] [address] [place] [address] Referral ID Status Reason Start Date Expiration Date Visits Requested Visits Authorized [id number] Pending Review Specialty Services Required 02/14/2023 02/14/2024 1 1 Referral ID Status Reason Start Date Expiration Date Visits Requested Visits Authorized [id number] Canceled Specialty Services Required 02/14/2023 02/14/2024 1 1 Additional Source Comments INFORMATION SOURCE (unrecogn ized section and content) DATE CREATED AUTHOR AUTHOR'S ORGANIZ ATION 06/17/2023 [employer] [facility] Reason for Visit (unrecogniz ed section [...] Contact Pulmonology Diagnoses Multiple lung nodules Procedures [place] OFFICE/OUTPATIENT [facility] 60-74 MINUTES Sandro Cage MD [address] [place] [address] [facility] [address] [place] [address] Referral ID Status Reason Start Date Expiration Date Visits Requested Visits Authorized [id number] Pending Review Specialty Services Required 01/16/2023 01/16/2024 [...] follow Surge ry Dr Joya in August [place] [facility] approx 2 weeks ago for stones Reason Onset Date Comments Surgery Scheduling 05/30/2023 Insurance Reason Onset Date Comments Medication Problem 05/18/2023 Reason Onset Date Comments Orders 06/09/2023 Care Teams (unrecognized sec tion and content) Contract Forester Relationship Specialty Start Date End Date No, Pcp [address] [place] [address] PCP - General 05/16/22 João Villa MD [address] [place] [address] Surgeon Urology 05/17/22 Julianne Joya DO [address] [place] [address] Surgeon Urology 06/07/22 Contract Forester Relationship Specialty Start Date End Date No, Pcp [address] [place] [address] PCP - General 05/16/22 João Villa MD [address] [place] [address] Surgeon Urology 05/17/22 Julianne Joya DO [address] [place] [address] Surgeon Urology 06/07/22 Contract Forester Relationship Specialty Start Date End Date No, Pcp [address] [place] [address] PCP - General 05/16/22 João Villa MD [address] [place] [address] Surgeon Urology 05/17/22 Julianne Joya DO [address] [place] [address] Surgeon Urology 06/07/22 Contract Forester Relationship Specialty Start Date End Date Suly Parker MD [address] [place] [address] PCP - General 11/16/22 João Villa MD [address] [place] [address] Surgeon Urology 05/17/22 Julianne Joya DO [address] [place] [address] Surgeon Urology 06/07/22 Contract Forester Relationship Specialty Start Date End Date [facility] [address] [place] [address] PCP - General 05/16/22 11/15/22 Suly Parker MD [address] [place] [address] PCP - General 11/16/22 João Villa MD [address] [place] [address] Surgeon Urology 05/17/22 Julianne Joya DO [address] [place] [address] Surgeon Urology 06/07/22 Contract Forester Relationship Specialty Start Date End Date Suly Parker MD [address] [place] [address] PCP - General 11/16/22 João Villa MD [address] [place] [address] Surgeon Urology 05/17/22 Julianne Joya DO [address] [place] [address] Surgeon Urology 06/07/22 Contract Forester Relationship Specialty Start Date End Date Suly Parker MD [address] [place] [address] PCP - General 11/16/22 João Villa MD [address] [place] [address] Surgeon Urology 05/17/22 Julianne Joya DO [address] [facility] [address] [place] [address] Surgeon Urology 06/07/22 Contract Forester Relationship Specialty Start Date End Date Suly Parker MD [address] [place] [address] PCP - General 11/16/22 João Villa MD [address] [facility] [address] [place] [address] Surgeon Urology 05/17/22 Julianne Joya DO [address] [place] [address] Surgeon Urology 06/07/22 Contract Forester Relationship Specialty Start Date End Date Sandro Cage MD [address] [place] [address] PCP - General Family Medicine 01/04/23 João Villa MD [address] [place] [address] Surgeon Urology 05/17/22 Julianne Joya DO [address] [place] [address] Surgeon Urology 06/07/22 Contract Forester Relationship Specialty Start Date End Date Sandro Cage MD [address] [place] [address] PCP - General Family Medicine 01/04/23 João Villa MD [address] [place] [address] Surgeon Urology 05/17/22 Julianne Joya DO [address] [place] [address] Surgeon Urology 06/07/22 Contract Forester Relationship Specialty Start Date End Date Sandro Cage MD [address] [place] [address] PCP - General Family Medicine 01/04/23 João Villa MD [address] [facility] [address] [place] [address] Surgeon Urology 05/17/22 Julianne Joya DO [address] [place] [address] Surgeon Urology 06/07/22 Contract Forester Relationship Specialty Start Date End Date Sandro Cage MD [address] [place] [address] PCP - General Family Medicine 01/04/23 João Villa MD [address] [place] [address] Surgeon Urology 05/17/22 Julianne Joya DO [address] [place] [address] Surgeon Urology 06/07/22 Contract Forester Relationship Specialty Start Date End Date Sandro Cage MD [address] [place] [address] PCP - General Family Medicine 01/04/23 João Villa MD 95 [facility] [address] [place] [address] Surgeon Urology 05/17/22 Julianne Joya DO 95 [facility] [address] [place] [address] Surgeon Urology 06/07/22 Contract Forester Relationship Specialty Start Date End Date [facility] [address] [place] [address] PCP - General 05/16/22 11/15/22 Suly Parker MD [address] [place] [address] PCP - General 11/16/22 12/19/22 Jasbir Hackett MD [address] [place] [address] PCP - General Family Medicine 12/20/22 12/20/22 Sonny Schmitz MD [address] [address] PCP - General Family Medicine 12/21/22 01/03/23 Sandro Cage MD [address] [place] [address] PCP - General Family Medicine 01/04/23 João Villa MD [address] [place] [address] Surgeon Urology 05/17/22 Julianne Joya DO [address] [place] [address] Surgeon Urology 06/07/22 Contract Forester Relationship Specialty Start Date End Date Sandro Cage MD [address] [place] [address] PCP - General Family Medicine 01/04/23 João Villa MD [address] [place] [address] Surgeon Urology 05/17/22 Julianne Joya DO [address] [place] [address] Surgeon Urology 06/07/22 Contract Forester Relationship Specialty Start Date End Date Sandro Cage MD [address] [place] [address] PCP - General Family Medicine 01/04/23 João Villa MD [address] [place] [address] Surgeon Urology 05/17/22 Julianne Joya DO [address] [place] [address] Surgeon Urology 06/07/22 Contract Forester Relationship Specialty Start Date End Date Sandro Cage MD [address] [place] [address] PCP - General Family Medicine 01/04/23 João Villa MD [address] [place] [address] Surgeon Urology 05/17/22 Julianne Joya DO [address] [place] [address] Surgeon Urology 06/07/22 Contract Forester Relationship Specialty Start Date End Date Sandro Cage MD [address] [place] [address] PCP - General Family Medicine 01/04/23 João Villa MD [address] [place] [address] Surgeon Urology 05/17/22 Julianne Joya DO [address] [place] [address] Surgeon Urology 06/07/22 Contract Forester Relationship Specialty Start Date End Date Sandro Cage MD [address] [place] [address] PCP - General Family Medicine 01/04/23 João Villa MD [address] [place] [address] Surgeon Urology 05/17/22 Julianne Joya DO [address] [place] [address] Surgeon Urology 06/07/22 Contract Forester Relationship Specialty Start Date End Date Sandro Cage MD [address] [place] [address] PCP - General Family Medicine 01/04/23 João Villa MD [address] [place] [address] Surgeon Urology 05/17/22 Julianne Joya DO [address] [place] [address] Surgeon Urology 06/07/22 Contract Forester Relationship Specialty Start Date End Date Sandro Cage MD [address] [place] [address] PCP - General Family Medicine 01/04/23 João Villa MD [address] [place] [address] Surgeon Urology 05/17/22 Julianne Joya DO [address] [place] [address] Surgeon Urology 06/07/22 Contract Forester Relationship Specialty Start Date End Date Suly Parker MD [address] [place] [address] PCP - General 11/16/22 12/19/22 Jasbir Hackett MD [address] [place] [address] PCP - General Family Medicine 12/20/22 12/20/22 Sonny Schmitz MD [address] [place] [place] [address] [place] [address] PCP - General Family Medicine 12/21/22 01/03/23 Sandro Cage MD [address] [place] [address] PCP - General Family Medicine 01/04/23 João Villa MD 95 [facility] [place] [address] Surgeon Urology 05/17/22 Julianne Joya DO 95 [facility] [address] [place] [address] Surgeon Urology 06/07/22 Contract Forester Relationship Specialty Start Date End Date Sandro Cage MD [address] [place] [address] PCP - General Family Medicine 01/04/23 João Villa MD 95 [facility] [place] [address] Surgeon Urology 05/17/22 Julianne Joya DO 95 [facility] [address] [place] [address] Surgeon Urology 06/07/22 Contract Forester Relationship Specialty Start Date End Date Sandro Cage MD [address] [place] [address] PCP - General Family Medicine 01/04/23 João Villa MD [address] [place] [address] Surgeon Urology 05/17/22 Julianne Joya DO [address] [place] [address] Surgeon Urology 06/07/22 Contract Forester Relationship Specialty Start Date End Date Sadnro Cage MD [address] [place] [address] PCP - General Family Medicine 01/04/23 João Villa MD [address] [place] [address] Surgeon Urology 05/17/22 Julianne Joya DO [address] [place] [address] Surgeon Urology 06/07/22 Contract Forester Relationship Specialty Start Date End Date Sandro Cage MD [address] [place] [address] PCP - General Family Medicine 01/04/23 João Villa MD [address] [place] [address] Surgeon Urology 05/17/22 Julianne Joya DO [address] [place] [address] Surgeon Urology 06/07/22 Contract Forester Relationship Specialty Start Date End Date Sandro Cage MD [address] [place] [address] PCP - General Family Medicine 01/04/23 João Villa MD [address] [place] [address] Surgeon Urology 05/17/22 Julianne Joya DO [address] [place] [address] Surgeon Urology 06/07/22 Contract Forester Relationship Specialty Start Date End Date Sandro Cage MD [address] [facility] [place] [address] PCP - General Family Medicine 01/04/23 João Villa MD [address] [place] [address] Surgeon Urology 05/17/22 Julianne Joya DO [address] [place] [address] Surgeon Urology 06/07/22 FOR RECORDS PERTAINING TO [...] BE BASED ON THE PRIMARY CLINICAL RECORDS. [facility] [employer] provides no warranty or guarantee of the accuracy or completeness of information in this document.
[2023-07-09] MEDS: Ondansetron 4 MG/2 ML Vial IV (08:52)
[2023-07-09] MEDS: Morphine 4 MG/ML Syringe 6 MG IV (08:52)
[2023-07-09 08:55] VITALS: BP 146/68; PULSE 71; RESP 16; O2SAT 94
[2023-07-09 08:55] LABS: Absolute Lymphocyte Count 1.52 X10^3/uL (0.83-4.51); Absolute Neutrophil Count 4.8 X10^3/uL (2.0-7.7); Basophil# 0.06 X10^3/uL; Basophil% 0.9 % (0-1); Eosinophil# 0.09 X10^3/uL; Eosinophils% 1.3 % (0-5); Hematocrit 40.7 % (37-47); Hemoglobin 12.6 g/dL (12.0-15.0); Lymphocyte # 1.52 X10^3/ul (0.83-4.51); Lymphocyte % 22.5 % (19-41); Mean Corpuscular Hgb 27.8 pg (27.0-32.0); Mean Corpuscular Volume 89.8 fL (81-99); Mean Platelet Vol. 10.1 fl (6.2-12.0); Monocyte# 0.26 X10^3/uL; Monocyte% 3.8 % (0-10); NRBC Flagged by Analyzer 0 % (0-5); Neutrophil % 71.1 % (47-70); Platelet Count 188 K/mm3 (150-450); RBC Distribution Width CV 13.6 % (11.6-14.6); RBC Distribution Width SD 44.6 fl (35.1-43.9); Red Blood Count 4.53 M/mm3 (4.2-5.4); White Blood Count 6.8 K/mm3 (4.4-11.0)
[2023-07-09 08:56] LABS: Color, Urine Yellow (Yellow); Glucose, Dipstick Normal (Normal); Ketone-Dipstick Negative (Negative); Leukocyte Esterase-Dipstick 25 /ul (Negative); Nitrite-Dipstick Negative (Negative); Occult Blood-Urine 250 /ul (Negative); Protein-Dipstick 30 mg/dl (Negative); Specific Gravity, Urine 1.015 (1.002-1.030); Urine Bilirubin Dipstick Negative (Negative); Urine Clarity Sl. Cloudy (Clear); Urine Urobilinogen Normal (Normal)
[2023-07-09 09:04] LABS: Hyaline Cast 0 SEEN /lpf (0-5); Red Blood Cells-Urine 5-10 SEEN /hpf (0-5); Squamous Epithelial Cells - UA 5-10 SEEN /hpf (5-10); White Blood Cells 25-50 SEEN /hpf (0-5)
[2023-07-09 09:05] LABS: Bacteria 2+ /hpf (None Seen); Mucous, Urine 1+ /hpf (<or=2+); Red Cell Cast 0-5 SEEN /lpf (None Seen); White Cell Cast 0 SEEN /lpf (None Seen)
[2023-07-09 09:12] LABS: Anion Gap 3 (5-15); BUN 24 mg/dL (7-18); BUN/Creat Ratio 36.5 RATIO (10-20); Calcium,Total 9.7 mg/dL (8.5-10.1); Chloride 108 mmol/L (98-107); Creatinine, Serum 0.66 mg/dL (0.55-1.02); EST Glomerular Filtration Rate 93 mL/min (>60); Est Glom Filt Rate - Afr Amer 112 mL/min (>60); Estimated Creatinine Clearance 58.81 ml/min; Glucose 142 mg/dL (74-106); Potassium 3.8 mmol/L (3.5-5.1); Sodium Level 138 mmol/L (136-145)
[2023-07-09 10:54] VITALS: BP 134/74; PULSE 67; RESP 16; TEMP 36.4; O2SAT 98
[2023-07-09 10:56] VITALS: BP 134/74; PULSE 67; RESP 16; TEMP 36.4; O2SAT 98
--- NOTE | 2023-07-09 11:34 | NURSING ---
CALLED [facility] FOR TRANSFER. DR SIEGEL TALKING TO [place] CALLED RAD TO HAVE XRAY AND CT PUSHED.
[2023-07-09] MEDS: Ceftriaxone 1 GM/50 ML BAG IV (11:39)
[2023-07-09] MEDS: morphine 8 MG/ML Syringe 6 MG IV ×2 (11:43→16:21)
[2023-07-09 12:05] VITALS: BP 130/76; RESP 18; O2SAT 92
--- NOTE | 2023-07-09 12:09 | NURSING ---
ACCEPTED BY DR DENTON SHAW
--- NOTE | 2023-07-09 12:13 | ED.RN ---
Patient accepted by DR Joe at [facility]. No bed at this time but will have one today. Transfer center will update us in a couple hours.
--- NOTE | 2023-07-09 14:11 | NURSING ---
[facility] [phone] NURSE TO NURSE [phone]
--- NOTE | 2023-07-09 14:41 | NURSING ---
CALLED [facility], ETA IS 2 HRS
--- NOTE | 2023-07-09 16:43 | ED.RN ---
Attempted to call report to [phone] on hold for 10 minutes.
[2023-07-09 16:45] VITALS: BP 124/71; PULSE 102; RESP 18; O2SAT 95
--- NOTE | 2023-07-09 17:25 | ED.RN ---
report given to [facility] general nurse.
== END 2023-07-09 16:35 | disposition short-term general hospital (02) ==
PROVIDERS: Emergency Provider Emergency Medicine; Visit Provider Emergency Medicine
DX: R10.9 Unspecified abdominal pain (principal); N13.2 Hydronephrosis with renal and ureteral calculous obstruction
CPT/HCPCS: 74176; 80048; 81001; 85025; 96365; 96375; 96376; 99284; J7040; A4216; J2405

== ENCOUNTER → 2023-07-26 | Outpatient (CLI) | payer MEDICARE, MEDICAID, SELFPAY ==
--- NOTE | 2023-07-26 10:56 | RAD_ITS ---
STUDY: X-RAY - ABDOMEN/PELVIS REASON FOR EXAM: Female, 77 years old. CALC OF KIDNEY TECHNIQUE: Single AP view of the abdomen / pelvis. COMPARISON: Comparison is made with prior study dated June 26, 2023. FINDINGS: There is an unremarkable bowel gas pattern. A left-sided double-J stent catheter is seen with the proximal tip in the left renal pelvis and distal tip in the left side of the bladder. The previously seen calculus overlying the transverse processes of the L3 vertebrae on the left side is not present. Stable appearance of the left intrarenal calculi as well as phleboliths in the left renal pelvis. Normal soft tissue structures. Normal visualized osseous structures. RAD/Abdomen Single View IMPRESSION: Status post double-J stent catheter insertion in the left collecting system with residual left renal calculi. Electronically Signed: Adonis John MD at 15:17 EST ,
== END | disposition home or self-care (01) ==
PROVIDERS: Referring Provider Urology; Visit Provider Urology
DX: N20.0 Calculus of kidney (principal)
CPT/HCPCS: 74018

== ENCOUNTER 2023-08-10 11:18 | Day surgery (SDC) | payer MEDICARE, MEDICAID, SELFPAY ==
[2023-08-10 11:56] VITALS: BP 118/71; PULSE 73; RESP 16; TEMP 36.7; O2SAT 96; BMI 27.8
[2023-08-10] MEDS: Lactated Ringers 1,000 ML 15 ML IV (12:08)
[2023-08-10] MEDS: Cefazolin 2 GM in 0.9% Normal Saline (100mL Bag) 100 ML IV (13:41)
--- NOTE | 2023-08-10 13:57 | DCINST_ITS ---
Discharge Instructions Diet Discharge Diet: No restrictions Activity Discharge Activity: Return to Normal Activity Dressing / Incision Call your doctor if you observe: Fever of 101 or Higher and Inability to urinate Follow Up Care Please Follow Up With: Marci Littlejohn MD When: the office will call to make follow up arrangements Test Results: Test results from this visit will be discussed in further detail at your follow- up appointment, if applicable. Discharge Plan Admission Attending Provider: Marci Littlejohn Primary Care Provider: Care PhysicianAmanda Primary Discharge Orders/Prescriptions Prescriptions: New oxycodone-acetaminophen [Percocet] 5-325 mg tablet 1 tab PO Q8H PRN (Reason: pain) 3 Days Qty: 10 0RF cephalexin [cephalexin] 500 mg capsule 500 mg PO Q12 3 Days Qty: 6 0RF phenazopyridine [phenazopyridine] 100 mg tablet 100 mg PO TID Qty: 30 0RF Continued phenazopyridine [Pyridium] 200 mg tablet 200 mg PO BID omega 7-nfs-bax-fish oil [Fish Oil] 300-1,000 mg capsule,delayed release(DR/EC) 1 cap PO DAILY cholecalciferol (vitamin D3) [Vitamin D3] 50 mcg (2,000 unit) tablet 50 mcg PO DAILY red clover 1,000 mg capsule 1,000 mg PO DAILY zinc gluconate 50 mg tablet 50 mg PO DAILY C Complex 1,000 mg tablet extended release 1,000 mg PO DAILY vitamin E 200 unit capsule 180 mg PO DAILY magnesium 250 mg tablet 250 mg PO DAILY Complex B-100 Tablet Extended Release 1 tab PO DAILY Referrals / Follow Up: Care Physician,Amanda Primary [Primary Care Provider] - Disposition Disposition (needs filled in before D/C Order can be placed): Home, Self Care
--- NOTE | 2023-08-10 14:00 | PCM.OPRPT ---
Report of Operation Date of Procedure: 08/10/23 Pre-Operative Diagnosis: left renal stone Post-Operative Diagnosis: same Surgery/Procedure Performed:: Left renal extracorporal shockwave lithotripsy Surgeon: Marci Littlejohn Type of Anesthesia: General Specimen's removed: None Description of Procedure: The patient is a 77-year-old female with a large left renal stone and she presents for definitive surgical intervention. Informed consent was obtained. The patient was taken the operating room and placed on the operating room table. Anesthesia monitored the head, neck, airway, IV access and vital signs throughout the case. Once anesthesia was appropriately administered, the patient was aligned with the lithotripter. The left renal stone was easily visible. 3000 shocks were applied to the stone and it appeared to be fragmented at the conclusion of the case. The patient was then awakened and taken to the recovery room in good condition. There were no complications during this procedure. Grafts/Implants Used: None Complications None Admit VTE Documentation VTE Present on Admission: Yes VTE Mechan Device Prophylaxis: SCD's VTE Pharm Prophylaxis ordered?: No Reason prophylaxis not ordered:: Treatment Not Indicated
[2023-08-10 14:37] VITALS: BP 118/71; BP 130/67; PULSE 89; RESP 16; TEMP 36.5; O2SAT 94
[2023-08-10 14:40] VITALS: BP 118/71; BP 127/64; PULSE 89; RESP 16; O2SAT 93
[2023-08-10 14:45] VITALS: BP 118/71; BP 124/64; PULSE 91; RESP 16; O2SAT 93
[2023-08-10 14:50] VITALS: BP 118/71; BP 127/65; PULSE 90; RESP 16; O2SAT 94
[2023-08-10 15:00] VITALS: BP 112/96; BP 118/71; PULSE 94; RESP 16; TEMP 36.4; O2SAT 96
== END 2023-08-10 15:40 | disposition home or self-care (01) ==
LOC: SDC 11:26 → AC 11:27
PROVIDERS: Referring Provider Urology; Visit Provider Urology
PROC: (CPT 50590; principal; 2023-08-10 12:50)
DX: N20.0 Calculus of kidney (principal); H91.93 Unspecified hearing loss, bilateral; Z97.4 Presence of external hearing-aid
CPT/HCPCS: 50590; 00873; J7120; J2405

== ENCOUNTER → 2023-08-28 | Outpatient (CLI) | payer MEDICARE, MEDICAID, SELFPAY ==
--- NOTE | 2023-08-28 14:44 | RAD_ITS ---
INDICATION: LEFT RENAL CALCULUS EXAMINATION/TECHNIQUE: X-RAY - XR Abdomen 1 View COMPARISON: Prior study dated: 07/26/2023 FINDINGS: BOWEL GAS PATTERN: Non-obstructive. No bowel or stomach distention. Left-sided double-J stent catheter is again seen in stable position. FREE AIR: Not assessed on a single supine view. ORGANOMEGALY: The liver is probably prominent in size. CALCIFICATIONS: Previously noted calcifications in the left upper quadrant are not seen at this time. Pelvic calcifications likely due to phleboliths. LOWER CHEST: No acute pathology. BONES AND SOFT TISSUES: No acute pathology. RAD/Abdomen Single View IMPRESSION: Previously noted calcification/stones overlying the left kidney not seen on this exam. Left-sided double-J stent catheter in stable position Electronically Signed: Bowen Be MD at 15:51 EDT ,
== END | disposition home or self-care (01) ==
LOC: MTRAD 14:42
PROVIDERS: Referring Provider Urology; Visit Provider Urology
DX: N20.0 Calculus of kidney (principal)
CPT/HCPCS: 74018

== ENCOUNTER 2024-01-11 15:19 | Observation (INO) | payer MEDICARE, SELFPAY ==
[2024-01-11 15:19] VITALS: BP 140/80; PULSE 100; RESP 16; TEMP 36.6; O2SAT 92; BMI 27.3
--- NOTE | 2024-01-11 15:39 | CT_ITS ---
STUDY: CT ABDOMEN AND PELVIS WITH CONTRAST REASON FOR EXAM: Female, 78 years old. Left lower quadrant abdominal pain, guarding, perc RADIATION DOSAGE (If Supplied By Facility): CTDIvol = ( 14.80 ) mGy, DLP = ( 619.15 ) mGycm TECHNIQUE: Transaxial images were obtained from the dome of the diaphragm to the symphysis pubis without oral contrast. IV 100mL Isovue-300 was administered. Sagittal and coronal images were reconstructed. Individualized dose optimization techniques were used for this CT. COMPARISON: July 09, 2023 FINDINGS: Minor bibasilar interstitial thickening.. The visualized portions of the heart are within normal limits. There is elongation of the right lobe of the liver which may be normal variant. Attenuation is homogeneous. There is a tiny cyst in the right lobe. Bile ducts are not dilated Normal gallbladder and extrahepatic biliary system. Normal spleen. Normal pancreas. Normal bilateral adrenal glands. Tiny nonobstructing right renal calculus without obstruction or mass. Normal left kidney. Normal visualized stomach. Normal small intestine. There are diverticular changes in the sigmoid colon with concentric thickening of the knight and narrowing of the lumen with mild stranding in the fat to diverticulitis. There is no peridiverticular abscess. No evidence for acute appendicitis. Atherosclerotic change of the aorta without evidence for aneurysm. Normal inferior vena cava. Normal retroperitoneum. Normal urinary bladder. Uterus not visualized consistent with hysterectomy Normal abdominal wall. Lumbar spine demonstrates mild spondylosis. CT/Abdomen/Pelvis W IV Cont ONLY IMPRESSION: Acute diverticulitis of the sigmoid colon without evidence for peridiverticular abscess. Electronically Signed: Jae Adames MD at 17:09 EDT Reading Location ID and State: [facility] / [place] Tel , Service support ,
[2024-01-11 15:58] LABS: Absolute Lymphocyte Count 2.05 X10^3/uL (0.83-4.51); Absolute Neutrophil Count 5.3 X10^3/uL (2.0-7.7); Basophil# 0.08 X10^3/uL; Basophil% 0.9 % (0-1); Eosinophil# 0.31 X10^3/uL; Eosinophils% 3.6 % (0-5); Hematocrit 37.3 % (37-47); Hemoglobin 11.9 g/dL (12.0-15.0); Lymphocyte # 2.05 X10^3/ul (0.83-4.51); Lymphocyte % 23.5 % (19-41); Mean Corp Hgb Conc 31.9 g/dL (32-36); Mean Corpuscular Hgb 27.4 pg (27.0-32.0); Mean Corpuscular Volume 85.9 fL (81-99); Monocyte# 0.96 X10^3/uL; NRBC Flagged by Analyzer 0 % (0-5); Neutrophil # 5.28 X10^3/uL (2.7-7.7); Neutrophil % 60.5 % (47-70); Platelet Count 188 K/mm3 (150-450); RBC Distribution Width CV 14.6 % (11.6-14.6); RBC Distribution Width SD 46.3 fl (35.1-43.9); Red Blood Count 4.34 M/mm3 (4.2-5.4); White Blood Count 8.7 K/mm3 (4.4-11.0)
[2024-01-11 16:07] LABS: Anion Gap 3 (5-15); BUN 17 mg/dL (7-18); BUN/Creat Ratio 30.3 RATIO (10-20); Calcium,Total 8.9 mg/dL (8.5-10.1); Chloride 112 mmol/L (98-107); Creatinine, Serum 0.56 mg/dL (0.55-1.02); EST Glomerular Filtration Rate 111 mL/min (>60); Est Glom Filt Rate - Afr Amer 135 mL/min (>60); Estimated Creatinine Clearance 57.35 ml/min; Glucose 103 mg/dL (74-106); Potassium 3.7 mmol/L (3.5-5.1); Sodium Level 141 mmol/L (136-145)
--- NOTE | 2024-01-11 16:43 | EDS_ITS ---
HPI History of Present Illness Chief Complaint: Flank Pain Detail of Chief Complaint: Patient presents with left lower quadrant abdominal pain. She does not hav Informant: patient Onset/Context/Timing Onset: Days (Several days ago) Context: Sudden Onset Timing: Continuous and Waxes and wanes Quality: Pain Location: Left lower quadrant Current Severity: Mild Maximum Severity: Severe Worsened by: Walking, movement, coughing Relieved by: Nothing Associated Symptoms Associated Symptoms: Nothing Narrative Narrative: Patient is a 78-year-old woman. She has history of kidney stones. This is not exactly like her prior kidney stone presentation. She denies history of diverticulosis or diverticulitis. She denies change in her stool. She denies vomiting. She denies fever, chills night sweats. She denies flank pain. She denies headache, visual, ocular auditory symptoms. She denies cardiac or respiratory send She denies history of pancreatitis. She denies pain in the left upper or right upper quadrant. Prior similar symptoms: No Recent Illness/Hospitalization: No [facility] Medical History Wears hearing aid Wears glasses Cancer Post-menopausal Bladder disease Arthritis Low iron Back pain Syncope Shortness of breath on exertion Non-smoker Cardiology follow-up encounter Kidney stone Home Medications ?Medication ?Instructions ?Recorded ?Last Taken ?Type ascorbic acid (vitamin C) 1,000 mg 1,000 mg PO DAILY 08/09/23 Unknown History tablet,extended release (C Complex) cholecalciferol (vitamin D3) 50 50 mcg PO DAILY 08/09/23 Unknown History mcg (2,000 unit) tablet (Vitamin D3) magnesium 250 mg tablet 250 mg PO DAILY 08/09/23 Unknown History omega 8-sao-vyw-fish oil 300 1 cap PO DAILY 08/09/23 Unknown History mg-1,000 mg capsule,delayed release (Fish Oil) phenazopyridine 200 mg tablet 200 mg PO BID 08/09/23 Unknown History (Pyridium) red clover 1,000 mg capsule 1,000 mg PO DAILY 08/09/23 Unknown History vitamin B complex (Complex B-100 1 tab PO DAILY 08/09/23 Unknown History tablet,extended release) vitamin E 200 unit capsule 180 mg PO DAILY 08/09/23 Unknown History zinc gluconate 50 mg tablet 50 mg PO DAILY 08/09/23 Unknown History cephalexin 500 mg capsule 500 mg PO Q12 post-operative 3 08/10/23 Unknown Rx days #6 CAPSULES oxycodone-acetaminophen 5 mg-325 1 tab PO Q8H PRN pain 3 days #10 08/10/23 Unknown Rx mg tablet (Percocet) tabs phenazopyridine 100 mg tablet 100 mg PO TID #30 TABLETS 08/10/23 Unknown Rx ipratropium bromide 42 mcg (0.06 2 spray intranasal TID PRN PRN 01/11/24 Unknown History %) nasal spray allergy symptoms Allergy/AdvReac Type Severity Reaction Status Date / Time No Known Allergies Allergy Verified 01/11/24 15:20 Surgical History Hx of colonoscopy Hx of bladder repair surgery Hx of lithotripsy History of mastoidectomy Hx of total knee arthroplasty Hx of hysterectomy Social History Smoking Status: Never smoker ROS ROS ED Constitutional Constitutional ED: Denies chills, fever(s), subjective, sweats or weight loss Eyes Eyes: Denies blurry vision or change in vision ENT ENT ED: Denies ear pain, rhinorrhea or sore throat Cardiovascular Cardiovascular: Denies chest pain or palpitations Respiratory/Chest Respiratory/Chest: Denies cough, dyspnea or dyspnea on exertion Gastrointestinal Gastrointestinal: Reports abdominal pain and nausea; Denies constipation, diarrhea, melena or vomiting Genitourinary Genitourinary ED: Denies dysuria, hematuria or urinary frequency Musculoskeletal Musculoskeletal: Denies arthralgias, back pain, myalgias or neck pain Integumentary Denies rash Neurologic Neurologic: Denies headache(s) Hematologic/Lymphatic Hematologic/Lymphatic: Reports systems reviewed and no addt'l complaints, except as documented EXAM Physical Exam Const Vital Signs: 01/11/24 15:19 Temperature 97.8 F Temperature Source Temporal Pulse Rate 100 Respiratory Rate 16 Blood Pressure 140/80 H Blood Pressure Mean 100 Pulse Ox 92 Oxygen Delivery Method Room Air Positive well nourished and well developed Constitutional Narrative: Patient appears uncomfortable. She does not appear in obvious pain, however. General Appearance ED: well developed; Negative for cyanotic, diaphoretic, NAD or pallor HEENT Reports moist mucous membranes HEENT Narrative: Head is atraumatic normocephalic. Ears normal. Nares patent. Eyes PERRL and EOMs intact bilaterally General Eye ED: Negative for pale conjunctiva or scleral icterus Neck no lymphadenopathy, supple and no JVD Resp normal respiratory effort and clear to auscultation bilaterally Cardio regular rate, regular rhythm, S1 normal heart sound, S2 normal heart sound and no murmurs GI no masses; Negative for normal to inspection, nondistended, normoactive bowel sounds, non-tender, non-distended or hepatosplenomegaly GI Narrative: There is tympany to percussion. Patient has percussion tenderness left lower quadrant. There is guarding left lower quadrant. Bowel sounds are diminished. There is no CVA tenderness. There is no evidence of hernia. There is no hepatosplenomegaly. Inspection: abdominal distention Back/Spine no CVA tenderness Thoracic Spine / Upper Back: Negative for thoracic spinal tenderness Lumbar Spine / Lower Back: Negative for lumbar spinal tenderness Extremity normal to inspection General Extremety ED: Negative for edema or tenderness General Extremity: Negative for edema Neuro oriented x3, CN's II-XII intact bilaterally and no sensory deficits noted Sensorium / Orientation: alert Psych mental status grossly normal Skin no rashes or lesions noted, no wounds and skin turgor normal General Skin Exam: Negative for jaundice or pallor MDM MDM MDM Narrative Medical decision making narrative: Differential diagnosis would include atypical reservation for ureteral stone, diverticulitis, perforated viscus and malignancy. Will obtain CT of the abdomen and pelvis with IV contrast. Blood work was obtained to assess white count differential and renal function. Lab Data Attestation: I reviewed the patient's lab results. Lab results narrative: CBC is remarkable for anemia with normal indices. Basic metabolic panel reveals elevated BUN to creatinine ratio. BUN is 17 with a creatinine of 0.56. Her basic metabolic panel is otherwise unremarkable. Labs: Laboratory Results - last 24 hr 01/11/24 15:40 WBC 8.7 RBC 4.34 Hgb 11.9 L Hct 37.3 MCV 85.9 MCH 27.4 MCHC 31.9 L RDW Std Deviation 46.3 H RDW Coeff of Juliana 14.6 Plt Count 188 MPV 10.0 Immature Gran % (Auto) 0.500 Neut % (Auto) 60.5 Lymph % (Auto) 23.5 Ogle % (Auto) 11.0 H Eos % (Auto) 3.6 Baso % (Auto) 0.9 Absolute Neuts (auto) 5.3 Absolute Lymphs (auto) 2.05 Nucleated RBC % 0 Sodium 141 Potassium 3.7 Chloride 112 H Carbon Dioxide 26.0 Anion Gap 3 L BUN 17 Creatinine 0.56 Estim Creat Clear Calc 57.35 Est GFR (MDRD) Af Amer 135 Est GFR (MDRD) Non-Af 111 BUN/Creatinine Ratio 30.3 H Glucose 103 Calcium 8.9 Radiography Diagnostic Testing: Clinical Impression(s) from Imaging Studies Abdomen/Pelvis CT 01/11/24 15:39 IMPRESSION: Acute diverticulitis of the sigmoid colon without evidence for peridiverticular abscess. Electronically Signed: Jae Adames MD at 17:09 EDT , Treatment and Re-Evaluation :: Since patient has peritonitis with the diverticulitis we will treat with IV antibiotics call hospitalist for admission. Medical surgical floor ops versus admission Discharge Plan Triage Chief Complaint: Flank Pain ED Provider: Manuel Clement Dx/Rx/DC Orders Clinical Impression: Acute diverticulitis, Localized peritonitis, Elevated blood pressure reading Prescriptions: No Action phenazopyridine [Pyridium] 200 mg tablet 200 mg PO BID omega 6-mlh-emi-fish oil [Fish Oil] 300-1,000 mg capsule,delayed release(DR/EC) 1 cap PO DAILY cholecalciferol (vitamin D3) [Vitamin D3] 50 mcg (2,000 unit) tablet 50 mcg PO DAILY red clover 1,000 mg capsule 1,000 mg PO DAILY zinc gluconate 50 mg tablet 50 mg PO DAILY C Complex 1,000 mg tablet extended release 1,000 mg PO DAILY vitamin E 200 unit capsule 180 mg PO DAILY magnesium 250 mg tablet 250 mg PO DAILY Complex B-100 Tablet Extended Release 1 tab PO DAILY oxycodone-acetaminophen [Percocet] 5-325 mg tablet 1 tab PO Q8H PRN (Reason: pain) 3 Days Qty: 10 0RF cephalexin [cephalexin] 500 mg capsule 500 mg PO Q12 3 Days Qty: 6 0RF phenazopyridine [phenazopyridine] 100 mg tablet 100 mg PO TID Qty: 30 0RF ipratropium bromide 42 mcg (0.06 %) spray,non-aerosol 2 spray INTRANASAL TID PRN PRN (Reason: allergy symptoms) Primary Care Provider: Michelle Veras Referrals: Michelle Veras MD [Primary Care Provider] - Print Language: Citizen Of [place] Disposition Disposition: Acute Care Hospital [facility]
[2024-01-11 17:19] VITALS: BP 149/85; PULSE 84; RESP 14; O2SAT 94
[2024-01-11] MEDS: Piperacil/Tazobactam 4.5 GM in 0.9% Normal Saline (100mL MB+) 100 ML IV (17:47)
[2024-01-11 17:48] VITALS: BP 140/96; PULSE 89; RESP 14; TEMP 36.6; O2SAT 94
--- NOTE | 2024-01-11 18:53 | PCM.HP.STD ---
HPI - General General Date of Admission: 01/11/24 Date of Service: 01/11/24 Chief Complaint: Abdominal pain HPI Narrative MARYANN POLLARD, is a 78 F with history of C. difficile 5 years ago and kidney stone as well as mastoidectomy who presented to [facility] ED 01/11/2024 with 1 week of abdominal pain that is worsened over the past 2 days. In ED workup fairly benign however she had CT abdomen which showed acute diverticulitis and given patient's age and significant pain she was given Zosyn and hospitalist contacted for admission. Patient evaluated family member at bedside she reports the history of 1 week of abdominal pain worsened over the past 2 days with intermittent nausea and poor p.o. intake. No diarrhea but does feel like her stools little bit smaller caliber, no blood in stool. Will get some dizziness with ambulation and has had intermittent headache. Has had intermittent fevers and chills this past week as well but did not note a documented fever. Has been urinating frequently but no burning, some chronic sinus problems. Noted that patient had C. difficile 5 years ago with no previous or subsequent episodes however she gets diarrhea when she gets antibiotics but clarified with patient and family member that she does not get recurrent C. difficile with antibiotics just tends to get diarrhea from them. [facility] Medical History Wears hearing aid Wears glasses Cancer Post-menopausal Bladder disease Arthritis Low iron Back pain Syncope Shortness of breath on exertion Non-smoker Cardiology follow-up encounter Kidney stone Home Medications ?Medication ?Instructions ?Recorded ?Last Taken ?Type ascorbic acid (vitamin C) 1,000 mg 1,000 mg PO DAILY 08/09/23 Unknown History tablet,extended release (C Complex) cholecalciferol (vitamin D3) 50 50 mcg PO DAILY 08/09/23 Unknown History mcg (2,000 unit) tablet (Vitamin D3) magnesium 250 mg tablet 250 mg PO DAILY 08/09/23 Unknown History omega 6-car-rwp-fish oil 300 1 cap PO DAILY 08/09/23 Unknown History mg-1,000 mg capsule,delayed release (Fish Oil) red clover 1,000 mg capsule 1,000 mg PO DAILY 08/09/23 Unknown History vitamin B complex (Complex B-100 1 tab PO DAILY 08/09/23 Unknown History tablet,extended release) vitamin E 200 unit capsule 180 mg PO DAILY 08/09/23 Unknown History zinc gluconate 50 mg tablet 50 mg PO DAILY 08/09/23 Unknown History ipratropium bromide 42 mcg (0.06 2 spray intranasal TID PRN PRN 01/11/24 Unknown History %) nasal spray allergy symptoms Allergy/AdvReac Type Severity Reaction Status Date / Time No Known Allergies Allergy Verified 01/11/24 15:20 Surgical History Hx of colonoscopy Hx of bladder repair surgery Hx of lithotripsy History of mastoidectomy Hx of total knee arthroplasty Hx of hysterectomy Social History Smoking Status: Never smoker ROS ROS Narrative General: Has felt like maybe she has some fevers and chills HENT: Intermittent headache, some chronic sinus problems EYES: Denies changes in vision Resp: Denies cough, denies shortness of breath Cardiac: Denies chest pain GI: Small caliber stool but no blood, no diarrhea, abdominal pain especially on left side, has had nausea as well : Urinates frequently but no burning or other urinary complaints Extremity: Denies swelling MSK: Feels generally weak Neuro: Denies any numbness/tingling, with her poor p.o. intake has had some dizziness when up moving around Heme: Denies any bleeding or bruising Skin: Denies rashes Psychiatric: No complaints voiced Vital Signs Vital Signs Vital Signs: 01/11/24 15:19 01/11/24 17:19 01/11/24 17:48 Temperature 97.8 F 98 F Temperature Source Temporal Pulse Rate 100 84 89 Respiratory Rate 16 14 14 Blood Pressure 140/80 H 149/85 H 140/96 H Blood Pressure Mean 100 106 110 Pulse Ox 92 94 94 Oxygen Delivery Method Room Air Room Air Weight Weight: 72.167 kg Body Mass Index (BMI) 27.3 Physical Exam Narrative General: Alert, oriented, no apparent distress HEENT: Atraumatic, normocephalic Eyes: Anicteric, normal conjunctiva, extraocular movements grossly intact Neck: Supple Respiratory: Clear to auscultation bilaterally, normal respiratory effort Cardiovascular: Regular rate and rhythm GI: Soft, nontender, nondistended Extremities: No edema Musculoskeletal: Moving all extremities Neuro: No overt focal neurological deficits Skin: No rashes appreciated Psych: Cooperative Results Lab / Micro Data 01/11/24 15:40 01/11/24 15:40 Labs: Laboratory Results - last 24 hr 01/11/24 15:40: WBC 8.7, RBC 4.34, Hgb 11.9 L, Hct 37.3, MCV 85.9, MCH 27.4, MCHC 31.9 L, RDW Std Deviation 46.3 H, RDW Coeff of Juliana 14.6, Plt Count 188, MPV 10.0, Immature Gran % (Auto) 0.500, Neut % (Auto) 60.5, Lymph % (Auto) 23.5, [place] % (Auto) 11.0 H, Eos % (Auto) 3.6, Baso % (Auto) 0.9, Absolute Neuts (auto) 5.3, Absolute Lymphs (auto) 2.05, Nucleated RBC % 0, Sodium 141, Potassium 3.7, Chloride 112 H, Carbon Dioxide 26.0, Anion Gap 3 L, BUN 17, Creatinine 0.56, Estim Creat Clear Calc 57.35, Est GFR (MDRD) Af Amer 135, Est GFR (MDRD) Non-Af 111, BUN/Creatinine Ratio 30.3 H, Glucose 103, Calcium 8.9 Imaging Radiology Impression Abdomen/Pelvis CT 01/11/24 15:39 IMPRESSION: Acute diverticulitis of the sigmoid colon without evidence for peridiverticular abscess. Electronically Signed: Jae Adames MD at 17:09 EDT Reading Location ID and State: [address] [place] [address] Tel , Service support , Assessment & Plan Assessment/Plan (1) Acute diverticulitis: PLAN: Plan #Acute diverticulitis -CT acute diverticulitis of the sigmoid colon without evidence for peridiverticular abscess -Did have significant pain and given her pain and significant tenderness and age hospitalist contacted for admission, admit to MedSurg -IV fluids -IV Zosyn -Pain management -Advance diet as tolerated -Will need colonoscopy in 6 to 8 weeks on outpatient basis #DVT ppx: Lovenox subcu Sarah Beth Joshi MD Charges/Coding Visit Charges Inpatient E&M: 11333 Init Hosp L1
[2024-01-11 19:00] VITALS: BP 143/93; PULSE 89; RESP 14; O2SAT 94
[2024-01-11 19:35] VITALS: BP 127/80; O2SAT 94
[2024-01-11 20:13] VITALS: BMI 27.4
[2024-01-11 20:21] VITALS: BP 140/72; PULSE 79; RESP 16; TEMP 37.1; O2SAT 95
[2024-01-11] MEDS: 0.9% Normal Saline (1000mL) 1,000 ML 75 ML IV (20:27)
[2024-01-11] MEDS: Piperacil/Tazobactam 3.375 GM in 0.9% Normal Saline (50mL MB+) 50 ML IV (21:21)
[2024-01-11] MEDS: 0.9% Normal Saline (250mL Bag) 250 ML 15 ML IV (21:21)
[2024-01-12 05:00] VITALS: BP 141/69; PULSE 68; RESP 16; TEMP 36.6; O2SAT 96
[2024-01-12] MEDS: Piperacil/Tazobactam 3.375 GM in 0.9% Normal Saline (50mL MB+) 50 ML IV ×3 (05:08→21:04)
[2024-01-12] MEDS: 0.9% Normal Saline (1000mL) 1,000 ML 75 ML IV (05:08)
[2024-01-12 06:33] LABS: Absolute Lymphocyte Count 1.83 X10^3/uL (0.83-4.51); Absolute Neutrophil Count 4.5 X10^3/uL (2.0-7.7); Basophil# 0.07 X10^3/uL; Basophil% 0.9 % (0-1); Eosinophil# 0.36 X10^3/uL; Eosinophils% 4.7 % (0-5); Hematocrit 37.4 % (37-47); Hemoglobin 11.9 g/dL (12.0-15.0); Lymphocyte # 1.83 X10^3/ul (0.83-4.51); Mean Corp Hgb Conc 31.8 g/dL (32-36); Mean Corpuscular Hgb 27.6 pg (27.0-32.0); Mean Corpuscular Volume 86.8 fL (81-99); Mean Platelet Vol. 10.2 fl (6.2-12.0); Monocyte# 0.82 X10^3/uL; Monocyte% 10.8 % (0-10); NRBC Flagged by Analyzer 0 % (0-5); Neutrophil # 4.52 X10^3/uL (2.7-7.7); Neutrophil % 59.3 % (47-70); Platelet Count 170 K/mm3 (150-450); RBC Distribution Width CV 14.4 % (11.6-14.6); RBC Distribution Width SD 46.3 fl (35.1-43.9); Red Blood Count 4.31 M/mm3 (4.2-5.4); White Blood Count 7.6 K/mm3 (4.4-11.0)
[2024-01-12 07:17] LABS: ALB/GLOB Ratio 0.8 RATIO (0.9-2.4); AST(SGOT) 22 U/L (15-37); Alanine Aminotransfer ALT/SGPT 19 U/L (13-56); Albumin, Serum 2.7 g/dL (3.2-5.0); Alkaline Phosphatase 70 U/L (45-117); Anion Gap 4 (5-15); BUN 12 mg/dL (7-18); BUN/Creat Ratio 24.7 RATIO (10-20); Calcium,Total 8.7 mg/dL (8.5-10.1); Chloride 111 mmol/L (98-107); Creatinine, Serum 0.49 mg/dL (0.55-1.02); EST Glomerular Filtration Rate 131 mL/min (>60); Est Glom Filt Rate - Afr Amer 159 mL/min (>60); Estimated Creatinine Clearance 57.47 ml/min; Globulin 3.6 g/dL (2.2-4.2); Glucose 93 mg/dL (74-106); Potassium 3.8 mmol/L (3.5-5.1); Protein, Total 6.3 g/dL (6.4-8.2); Sodium Level 139 mmol/L (136-145)
[2024-01-12 08:23] LABS: Bacteria 0 SEEN /hpf (None Seen); Mucous, Urine 0 SEEN /hpf (<or=2+); Red Blood Cells-Urine 0 SEEN /hpf (0-5); White Blood Cells 0 SEEN /hpf (0-5)
[2024-01-12 08:30] LABS: Color, Urine Yellow (Yellow); Glucose, Dipstick Normal (Normal); Ketone-Dipstick Negative (Negative); Leukocyte Esterase-Dipstick Negative /ul (Negative); Nitrite-Dipstick Negative (Negative); Occult Blood-Urine Negative /ul (Negative); Protein-Dipstick Negative (Negative); Urine Bilirubin Dipstick Negative (Negative); Urine Clarity Clear (Clear); Urine Urobilinogen Normal (Normal)
[2024-01-12 08:37] LABS: Squamous Epithelial Cells - UA 0-5 SEEN /hpf (5-10)
[2024-01-12 09:00] VITALS: BP 119/66; PULSE 77; RESP 18; TEMP 36.5; O2SAT 94
--- NOTE | 2024-01-12 09:50 | PN_ITS ---
Subjective Subjective Patient seen and examined. She says her abdominal pain is much better. She denied any nausea, vomiting or diarrhea. Review of systems is otherwise negative. She has remained hemodynamically stable. Objective Data Objective Data Vital Signs: Vital Signs Temp Pulse Resp BP Pulse Ox O2 Del Method 97.9 F 68 16 141/69 H 96 Room Air 01/12/24 05:00 01/12/24 05:00 01/12/24 05:00 01/12/24 05:00 01/12/24 05:00 01/12/24 05:00 Oxygen Delivery Method Room Air Weight: 159 lb 13.362 oz Body Mass Index (BMI) 27.4 Intake & Output: Intake and Output for Last 24 Hours 01/10/24 01/11/24 01/12/24 23:59 23:59 23:59 Intake Total 100.75 / 400.75 1201.25 / 1201.25 Balance 100.75 / 400.75 1201.25 / 1201.25 Lab / Micro Data 01/12/24 06:03 01/12/24 06:03 Labs: Laboratory Results - last 24 hr 01/11/24 08:10: Urine Color Yellow, Urine Clarity Clear, Urine pH 7.0, Ur Specific Wrights 1.010, Urine Protein Negative, Urine Glucose (UA) Normal, Urine Ketones Negative, Urine Occult Blood Negative, Urine Nitrite Negative, Urine Bilirubin Negative, Urine Urobilinogen Normal, Ur Leukocyte Esterase Negative, Urine RBC 0 SEEN, Urine WBC 0 SEEN, Ur Squamous Epith Cells 0-5 SEEN, Urine Bacteria 0 SEEN, Urine Mucus 0 SEEN 01/11/24 15:40: WBC 8.7, RBC 4.34, Hgb 11.9 L, Hct 37.3, MCV 85.9, MCH 27.4, M CHC 31.9 L, RDW Std Deviation 46.3 H, RDW Coeff of Juliana 14.6, Plt Count 188, MPV 10.0, Immature Gran % (Auto) 0.500, Neut % (Auto) 60.5, Lymph % (Auto) 23.5, M florentino % (Auto) 11.0 H, Eos % (Auto) 3.6, Baso % (Auto) 0.9, Absolute Neuts (auto) 5.3, Absolute Lymphs (auto) 2.05, Nucleated RBC % 0, Sodium 141, Potassium 3.7, Chloride 112 H, Carbon Dioxide 26.0, Anion Gap 3 L, BUN 17, Creatinine 0.56, Estim Creat Clear Calc 57.35, Est GFR (MDRD) Af Amer 135, Est GFR (MDRD) Non-Af 111, BUN/Creatinine Ratio 30.3 H, Glucose 103, Calcium 8.9 01/12/24 06:03: WBC 7.6, RBC 4.31, Hgb 11.9 L, Hct 37.4, MCV 86.8, MCH 27.6, M CHC 31.8 L, RDW Std Deviation 46.3 H, RDW Coeff of Juliana 14.4, Plt Count 170, MPV 10.2, Immature Gran % (Auto) 0.300, Neut % (Auto) 59.3, Lymph % (Auto) 24.0, M florentino % (Auto) 10.8 H, Eos % (Auto) 4.7, Baso % (Auto) 0.9, Absolute Neuts (auto) 4.5, Absolute Lymphs (auto) 1.83, Nucleated RBC % 0, Sodium 139, Potassium 3.8, Chloride 111 H, Carbon Dioxide 24.0, Anion Gap 4 L, BUN 12, Creatinine 0.49 L, Estim Creat Clear Calc 57.47, Est GFR (MDRD) Af Amer 159, Est GFR (MDRD) Non-Af 131, BUN/Creatinine Ratio 24.7 H, Glucose 93, Calcium 8.7, Magnesium 2.0, Total Bilirubin 0.80, AST 22, ALT 19, Alkaline Phosphatase 70, Total Protein 6.3 L, A lbumin 2.7 L, Globulin 3.6, Albumin/Globulin Ratio 0.8 L Radiography Diagnostic Testing: Radiology Impression Abdomen/Pelvis CT 01/11/24 15:39 IMPRESSION: Acute diverticulitis of the sigmoid colon without evidence for peridiverticular abscess. Electronically Signed: Jae Adames MD at 17:09 EDT , Physical Exam Const alert, oriented x3, no apparent distress and well nourished General Appearance: cooperative and well developed HEENT normocephalic, head/scalp atraumatic, moist oral mucous membranes and oropharynx normal Eyes PERRL and EOMs intact bilaterally Neck no lymphadenopathy, supple and no JVD Lymph Lymphatic: no lymphadenopathy noted and no lymphedema noted Resp normal respiratory effort, normal air movement and clear to auscultation bilaterally Cardio regular rate, regular rhythm, S1 normal heart sound, S2 normal heart sound and no murmurs Peripheral Pulses: pulses 2+ throughout GI normal to inspection, nondistended, normoactive bowel sounds and soft to palpation GI Narrative: minimal generalised tenderness, no guarding or rebound tenderness. Extremity normal capillary refill, no clubbing, cyanosis or edema and no calf tenderness General Extremity: no tenderness to palpation of joints or extremities Skin General Skin Exam: no breakdown Neuro CN's II-XII intact bilaterally, no focal motor deficits, no sensory deficits noted and deep tendon reflexes 2+ bilaterally Motor Exam: strength 5/5 throughout and general weakness Psych thought process normal, cooperative and affect normal Appearance: appropriate Assessment & Plan Assessment/Plan (1) Acute diverticulitis: PLAN: Plan #Acute diverticulitis * admitted with a complaint of abdominal pain * CT abdomen and pelvis showed acute diverticulitis of the sigmoid colon with no evidence of peridiverticular abscess * abdominal pain has improved and she felt much better * being hydrated with IVF * on IV zosyn. * on clear liquid diet. Will advance slowly to full liquid diet as tolerrated * #DVT prophylaxis: lovenox Charges/Coding Visit Charges Inpatient E&M: 10428 Subs Hosp L2
--- NOTE | 2024-01-12 09:50 | CASEMGMT ---
GAMAL HICKEY Assessment: Face to Face with pt for initial transition planning/care coordination assessment. RN RUPERTO introduced self and role at [facility], pt voices understanding and consents to assessment. Pt is A&O x4 and answers all questions appropriately at this time. Pt coming back from restroom with [employer]. Care providers, pharmacy, and demographics verified/updated. Admitting Dx: acute diverticulitis Strata Score: 1 PCP:Eda Specialists:didier Littlejohn Preferred Pharmacy: [facility] Insurance: [facility] Prescription Benefit: yes LNOK: Gema Staleye, dtr Living Arrangements: Pt lives with dtr in a two story home with 6 steps to enter with a rail. Pt reports she is I in ADL's/IADL's and denies concerns at home. Pt still works. Transportation: Pt drives self and denies concerns with transportation. DME:Denies HHC/SNF: Pt has had [facility] and denies SNF stays. Pt states no concerns with going home at time of dc. Pt states no further concerns/needs. CM to follow. Advised pt to ask CM if any further question/concerns/needs arise, voices understanding. Pt Goal: Home Plan: Home Salbador YEUNG CM
[2024-01-12] MEDS: Enoxaparin 40 MG/0.4 ML Syringe SC (09:57)
[2024-01-12 14:10] VITALS: BP 142/77; PULSE 77; RESP 16; TEMP 36.7; O2SAT 94
[2024-01-12 20:10] VITALS: BP 126/53; PULSE 78; RESP 15; TEMP 36.6; O2SAT 96
[2024-01-13] MEDS: Piperacil/Tazobactam 3.375 GM in 0.9% Normal Saline (50mL MB+) 50 ML IV (05:26)
[2024-01-13 05:27] VITALS: BP 136/66; PULSE 73; RESP 16; TEMP 36.6; O2SAT 98
[2024-01-13 06:25] LABS: Absolute Lymphocyte Count 1.69 X10^3/uL (0.83-4.51); Absolute Neutrophil Count 2.1 X10^3/uL (2.0-7.7); Basophil# 0.07 X10^3/uL; Basophil% 1.5 % (0-1); Eosinophil# 0.42 X10^3/uL; Eosinophils% 8.7 % (0-5); Hematocrit 37.8 % (37-47); Lymphocyte # 1.69 X10^3/ul (0.83-4.51); Lymphocyte % 35.1 % (19-41); Mean Corp Hgb Conc 31.7 g/dL (32-36); Mean Corpuscular Hgb 27.5 pg (27.0-32.0); Mean Corpuscular Volume 86.7 fL (81-99); Mean Platelet Vol. 10.3 fl (6.2-12.0); Monocyte# 0.53 X10^3/uL; NRBC Flagged by Analyzer 0 % (0-5); Neutrophil # 2.09 X10^3/uL (2.7-7.7); Neutrophil % 43.5 % (47-70); Platelet Count 183 K/mm3 (150-450); RBC Distribution Width CV 14.3 % (11.6-14.6); RBC Distribution Width SD 45.7 fl (35.1-43.9); Red Blood Count 4.36 M/mm3 (4.2-5.4); White Blood Count 4.8 K/mm3 (4.4-11.0)
[2024-01-13 06:42] LABS: Anion Gap 4 (5-15); BUN 10 mg/dL (7-18); BUN/Creat Ratio 22.2 RATIO (10-20); Calcium,Total 8.6 mg/dL (8.5-10.1); Chloride 114 mmol/L (98-107); Creatinine, Serum 0.45 mg/dL (0.55-1.02); EST Glomerular Filtration Rate 143 mL/min (>60); Est Glom Filt Rate - Afr Amer 173 mL/min (>60); Estimated Creatinine Clearance 57.47 ml/min; Glucose 89 mg/dL (74-106); Potassium 3.6 mmol/L (3.5-5.1); Sodium Level 142 mmol/L (136-145)
[2024-01-13 09:01] VITALS: BP 136/73; PULSE 78; RESP 18; TEMP 36.6; O2SAT 96
[2024-01-13] MEDS: Enoxaparin 40 MG/0.4 ML Syringe SC (09:04)
--- NOTE | 2024-01-13 12:55 | DS.PCM_ITS ---
Providers Date of Admission: 01/11/24 Date of Discharge: 01/13/24 Primary Care Physician: Michelle Veras MD Reason For Visit: ACUTE DIVERTICULITIS Diagnosis Discharge Diagnosis (1) Acute diverticulitis: Status: Acute Code(s): K57.92 - Diverticulitis of intestine, part unspecified, without perforation or abscess without bleeding Plan #Acute diverticulitis * admitted with a complaint of abdominal pain * CT abdomen and pelvis showed acute diverticulitis of the sigmoid colon with no evidence of peridiverticular abscess * abdominal pain has improved and she felt much better * being hydrated with IVF * on IV zosyn. * on clear liquid diet. Will advance slowly to full liquid diet as tolerrated * #DVT prophylaxis: lovenox Medications at Discharge Home Medications ascorbic acid (vitamin C) 1,000 mg tablet,extended release (C Complex) 1,000 mg PO DAILY 08/09/23 cholecalciferol (vitamin D3) 50 mcg (2,000 unit) tablet (Vitamin D3) 50 mcg PO DAILY 08/09/23 magnesium 250 mg tablet 250 mg PO DAILY 08/09/23 omega 7-[id number]-fish oil 300 mg-1,000 mg capsule,delayed release (Fish Oil) 1 cap PO DAILY 08/09/23 red clover 1,000 mg capsule 1,000 mg PO DAILY 08/09/23 vitamin B complex (Complex B-100 tablet,extended release) 1 tab PO DAILY 08/09/23 vitamin E 200 unit capsule 180 mg PO DAILY 08/09/23 zinc gluconate 50 mg tablet 50 mg PO DAILY 08/09/23 ipratropium bromide 42 mcg (0.06 %) nasal spray 2 spray intranasal TID PRN PRN allergy symptoms 01/11/24 ciprofloxacin HCl 500 mg tablet 500 mg PO BID #10 tabs 01/13/24 metronidazole 500 mg tablet 500 mg PO Q8H #15 tabs 01/13/24 Hospital Course Operations None Procedures None Summary of Care Provided Minutes Spent on Discharge: 55 Hospital Course: Patient is a 78-year-old female with a past medical history of CHF and kidney stone was admitted through the ED on 01/11/2024 with a complaint of abdominal pain which had been going on for about a week but worsened over 2 days prior to admission. She denied any fever or chills though she does admit to intermittent nausea and poor intake. She denied any vomiting. She denied any blood in his stool. He had also admitted to intermittent fever and chills prior to her coming in. Review of systems otherwise negative. Imaging done showed evidence of acute diverticulitis in the sigmoid colon. She was therefore admitted and managed for acute sigmoid diverticulitis. She was started on IV Zosyn and hydrated with fluids. She was initially kept NPO. Abdominal pain improved and she felt much better. She was started on a clear liquid diet which she tolerated. Diet was advanced to a soft diet and a regular diet and she tolerated all of this. She did not have any elevated white cell count. She remained stable and was discharged on 01/13/2024. She was discharged on p.o. ciprofloxacin and metronidazole x 5-day course. She is follow-up with her primary care doctor and to be referred to general surgery on outpatient basis for evaluation for colonoscopy in 6 to 8 weeks. Patient seen and examined prior to discharge. She felt much better and had no complaints. She had an uneventful night. Review of systems otherwise negative. Labs and vitals reviewed. Medication reviewed and reconciled. Physical Exam Const alert, oriented x3, no apparent distress and well nourished General Appearance: cooperative, comfortable, well kempt and well developed HEENT normocephalic, head/scalp atraumatic, hearing grossly normal bilaterally, moist oral mucous membranes and oropharynx normal Mouth: oral and palatal mucosa normal Eyes PERRL and EOMs intact bilaterally Neck no lymphadenopathy, supple and no JVD Lymph Lymphatic: no lymphadenopathy noted and no lymphedema noted Resp normal respiratory effort, normal air movement and clear to auscultation bilaterally Cardio regular rate, regular rhythm, S1 normal heart sound, S2 normal heart sound and no murmurs Peripheral Pulses: pulses 2+ throughout GI normal to inspection, nondistended, normoactive bowel sounds and soft to palpation Extremity normal to inspection, full ROM, normal capillary refill, no clubbing, cyanosis or edema and no calf tenderness General Extremity: no tenderness to palpation of joints or extremities Skin no rashes or lesions noted General Skin Exam: no breakdown Neuro oriented x3, CN's II-XII intact bilaterally, moves all extremities, no focal motor deficits, no sensory deficits noted and deep tendon reflexes 2+ bilaterally Sensorium / Orientation: awake and alert Motor Exam: strength 5/5 throughout and general weakness Psych thought process normal, cooperative and affect normal Appearance: appropriate Weight / BMI Weight Weight: 159 lb 13.362 oz Body Mass Index (BMI) 27.4 ABG / Lab / Microbiology Data 01/13/24 05:46 01/13/24 05:46 Laboratory: Laboratory Results - last 24 hr 01/13/24 05:46: WBC 4.8, RBC 4.36, Hgb 12.0, Hct 37.8, MCV 86.7, MCH 27.5, MCHC 31.7 L, RDW Std Deviation 45.7 H, RDW Coeff of Juliana 14.3, Plt Count 183, MPV 10.3, Immature Gran % (Auto) 0.200, Neut % (Auto) 43.5 L, Lymph % (Auto) 35.1, M florentino % (Auto) 11.0 H, Eos % (Auto) 8.7 H, Baso % (Auto) 1.5 H, Absolute Neuts (auto) 2.1, Absolute Lymphs (auto) 1.69, Nucleated RBC % 0, Sodium 142, Potassium 3.6, Chloride 114 H, Carbon Dioxide 24.0, Anion Gap 4 L, BUN 10, C reatinine 0.45 L, Estim Creat Clear Calc 57.47, Est GFR (MDRD) Af Amer 173, Est GFR (MDRD) Non-Af 143, BUN/Creatinine Ratio 22.2 H, Glucose 89, Calcium 8.6 D/C Instructions Discharge Diet: Low fat / Low cholesterol Discharge Activity: Return to Normal Activity Weight Bearing Status: Weight bearing as tolerated Call your doctor if you observe: Fever of 101 or Higher, Shortness of breath, Dizziness, Swelling in the ankles, Chest pain and Uncontrolled pain Meaningful Use Info Meaningful Use Meaningful Use Diagnoses (Choose all that apply): None applicable Ischemic Stroke Statin Dosing Therapy Reference: STATIN DOSE THERAPY REFERENCE: * Patients > 75 years receive moderate or high dose statin therapy. * Patients 75 years or YOUNGER should receive HIGH intensity statin dose unless contraindicated. You will be required to document reason for non-treatment if statin daily dose does not meet guidelines. HIGH DOSE STATIN THERAPY DAILY Atorvastatin > than or = to 40 mg Rosuvastatin > than or = to 20 mg Amlodipine + Atorvastatin > than or = to 2.5/40 mg Ezetimibe + Simvastatin 10/80 mg Simvastatin 80mg Discharge Plan Admission Admit Date/Time: 01/11/24 18:54 Primary Reason for Your Visit: acute diverticulitis Attending Provider: Shahida Moya Primary Care Provider: Michelle Veras Consulting Providers: Sarah Beth Joshi Instructions Patient Instructions: ED Diverticulitis Discharge Orders/Prescriptions Prescriptions: New ciprofloxacin HCl 500 mg tablet 500 mg PO BID Qty: 10 0RF metronidazole 500 mg tablet 500 mg PO Q8H Qty: 15 0RF Continued omega 4-xhl-tpb-fish oil [Fish Oil] 300-1,000 mg capsule,delayed release(DR/EC) 1 cap PO DAILY cholecalciferol (vitamin D3) [Vitamin D3] 50 mcg (2,000 unit) tablet 50 mcg PO DAILY red clover 1,000 mg capsule 1,000 mg PO DAILY zinc gluconate 50 mg tablet 50 mg PO DAILY C Complex 1,000 mg tablet extended release 1,000 mg PO DAILY vitamin E 200 unit capsule 180 mg PO DAILY magnesium 250 mg tablet 250 mg PO DAILY Complex B-100 Tablet Extended Release 1 tab PO DAILY ipratropium bromide 42 mcg (0.06 %) spray,non-aerosol 2 spray INTRANASAL TID PRN PRN (Reason: allergy symptoms) Referrals / Follow Up: Michelle Veras MD [Primary Care Provider] - Within 1 Week Disposition Disposition (needs filled in before D/C Order can be placed): Home, Self Care Charges/Coding Visit Charges Inpatient E&M: 25866 Disch Hosp >30min
[2024-01-13 13:35] VITALS: BP 132/76; PULSE 80; RESP 18; TEMP 36.4; O2SAT 95
== END 2024-01-13 14:06 | disposition home or self-care (01) | DRG 391 ==
LOC: ED 18:13 → MS3 18:38
PROVIDERS: Admitting Provider Internal Medicine; Emergency Provider Emergency Medicine; PCP Family Medicine; Visit Provider Student in an Organized Health Care Education/Training Program
DX: K57.32 Diverticulitis of large intestine without perforation or abscess without bleeding (principal); K65.9 Peritonitis, unspecified; Z87.442 Personal history of urinary calculi; R03.0 Elevated blood-pressure reading, without diagnosis of hypertension
CPT/HCPCS: 36415; 74177; 80048; 80053; 81001; 83735; 85025; 96361; 96365; 96366; 96372; 99221; 99284; J7030; J7050; Q9967; A4216; G0378

== ENCOUNTER → 2024-08-13 | Outpatient (CLI) | payer MEDICARE, SELFPAY ==
--- NOTE | 2024-08-13 15:40 | BD_ITS ---
PROCEDURE: DEXA BONE DENSITY STUDY REASON FOR EXAM: F, age 78 y/o . Postmenopausal. TECHNIQUE: DEXA scan of the lumbar spine and both hips. COMPARISON: None FINDINGS: Lumbar Spine (L1-L4): g/cm2 (0.773)/T-score (-2.5)/Z-score (0.1) findings are suggestive of osteopenia with a high fracture risk. Left Femur Total: g/cm2 (0.864)/T-score (-0.6)/Z-score (1.3) Left Femoral Neck: g/cm2 (0.838)/T-score (-0.1)/Z-score (2.1) Right Femur Total: g/cm2 (0.786)/T-score (-1.3)/Z-score (0.7) Right Femoral Neck: g/cm2 (0.737)/T-score (-1.2)/Z-score (1 point) BD/Dexa Bone Density Study IMPRESSION: The patient is considered osteopenic as outlined below according to World [employer] Organization (WHO) criteria with a high fracture risk. Reading Location: [facility]
== END | disposition home or self-care (01) ==
LOC: OPBD 15:22
PROVIDERS: PCP Family Medicine; Referring Provider Family Medicine; Visit Provider Family Medicine
DX: M81.0 Age-related osteoporosis without current pathological fracture (principal)
CPT/HCPCS: 77080

== ENCOUNTER → 2024-10-03 | Outpatient (CLI) | payer MEDICARE, SELFPAY ==
--- NOTE | 2024-10-03 11:21 | RAD_ITS ---
PROCEDURE: Right shoulder radiographs, four views 10/03/2024 REASON FOR EXAM: Right shoulder pain TECHNIQUE: Four views of the right shoulder were obtained. COMPARISON: None available FINDINGS: Four views of the right shoulder were obtained. Included lungs are clear. Bones are osteopenic. No acute fracture or dislocation of the right shoulder. Lnal-eg-uczxzbpu degenerative change right acromioclavicular joint. No AC joint widening. The subacromial space is maintained. Severe degenerative change right glenohumeral joint. RAD/Shoulder min 2 Views IMPRESSION: Osteopenia. No acute bony abnormality of the right shoulder. Severe degenerative change right glenohumeral joint. Mild/moderate degenerative change right acromioclavicular joint. No AC joint w idening. Reading Location: [facility]
== END | disposition home or self-care (01) ==
LOC: MTRAD 11:20
PROVIDERS: PCP Family Medicine; Referring Provider Family Medicine; Visit Provider Family Medicine
DX: M25.511 Pain in right shoulder (principal)
CPT/HCPCS: 73030

== ENCOUNTER → 2024-10-09 | Outpatient (CLI) | payer MEDICARE, SELFPAY ==
--- NOTE | 2024-10-09 15:21 | RAD_ITS ---
PROCEDURE: ABDOMEN SINGLE VIEW 10/09/2024 REASON FOR EXAM: KUB- KIDNEY STONES TECHNIQUE: Single view abdomen. COMPARISON: 08/28/2023 FINDINGS: Bowel gas: Bowel gas pattern is normal. No evidence of bowel obstruction. Calcifications: No suspicious calcifications. Bones: The bones are unremarkable. Other: Interval removal of left ureteral stent. RAD/Abdomen Single View IMPRESSION: NO ACUTE FINDINGS Reading Location: [id number]
== END | disposition home or self-care (01) ==
LOC: MTRAD 15:20
PROVIDERS: PCP Family Medicine; Referring Provider Urology; Visit Provider Urology
DX: N20.0 Calculus of kidney (principal)
CPT/HCPCS: 74018

== ENCOUNTER → 2024-11-06 | Outpatient (CLI) | payer MEDICARE, SELFPAY ==
--- NOTE | 2024-11-06 18:18 | CT_ITS ---
EXAM: CT Chest Without Intravenous Contrast CLINICAL INDICATION: LUNG NODULE TECHNIQUE: Axial computed tomography images of the chest without intravenous contrast. This CT exam was performed using one or more of the following dose reduction techniques: automated exposure control, adjustment of the mA and/or kV according to patient size, and/or use of iterative reconstruction technique. COMPARISON: No relevant prior studies available. FINDINGS: LUNGS AND PLEURAL SPACES: Mild lung emphysema/COPD. Dependent atelectasis, bilaterally. No suspicious pulmonary nodules. No significant effusion. No pneumothorax. HEART: Unremarkable. No cardiomegaly. No significant pericardial effusion. No significant coronary artery calcifications. MEDIASTINUM: A few prominent mediastinal lymph nodes measuring up to 6 mm. Small esophageal hiatal hernia. BONES/JOINTS: Unremarkable. No acute fracture. SOFT TISSUES: Unremarkable. VASCULATURE: Scattered calcified atherosclerotic disease of aorta. No thoracic aortic aneurysm. LYMPH NODES: See above. KIDNEYS AND URETERS: Partially visualized right nephrolithiasis. CT/Chest without Contrast IMPRESSION: 1. Mild lung emphysema/COPD. Dependent atelectasis, bilaterally. No suspicio us pulmonary nodules. 2. Small esophageal hiatal hernia. 3. Continue low-dose CT scan of the chest in 12 months is recommended. Reading Location: [id number]
== END | disposition home or self-care (01) ==
PROVIDERS: PCP Family Medicine; Referring Provider Family Medicine; Visit Provider Family Medicine
DX: R91.8 Other nonspecific abnormal finding of lung field (principal)
CPT/HCPCS: 71250

== ENCOUNTER → 2025-02-27 | Outpatient (CLI) | payer MEDICARE, SELFPAY ==
[2025-02-27 17:40] LABS: Hematocrit 39.9 % (37-47); Hemoglobin 12.8 g/dL (12.0-15.0); Mean Corp Hgb Conc 32.1 g/dL (32-36); Mean Corpuscular Volume 90.1 fL (81-99); Mean Platelet Vol. 10.7 fl (6.2-12.0); Platelet Count 193 K/mm3 (150-450); RBC Distribution Width CV 13.1 % (11.6-14.6); RBC Distribution Width SD 43.2 fl (35.1-43.9); Red Blood Count 4.43 M/mm3 (4.2-5.4); White Blood Count 6.0 K/mm3 (4.4-11.0)
[2025-02-27 18:29] LABS: Cholesterol 202 mg/dL (<=200); Low Density Lipoprotein Calc. 96 mg/dL; Triglycerides 213 mg/dL; Very Low Density Lipoprotein 43 mg/dL (5-40); Vitamin D,25 Hydroxy 30.4 ng/mL (30-100); cholesterol:hdl ratio screen 3.18
== END | disposition home or self-care (01) ==
LOC: MFPLAB 14:42
PROVIDERS: PCP Family Medicine; Visit Provider Family Medicine
DX: Z13.220 Encounter for screening for lipoid disorders (principal); R53.83 Other fatigue
CPT/HCPCS: 36415; 80061; 82306; 84443; 85027

== ENCOUNTER 2025-06-08 16:42 | Emergency (ER) | payer MEDICARE, SELFPAY ==
[2025-06-08 16:43] VITALS: BP 133/64; PULSE 85; RESP 16; TEMP 37; O2SAT 98; BMI 28.7
--- NOTE | 2025-06-08 17:18 | EDS_ITS ---
HPI History of Present Illness Chief Complaint: Lower Extremity Injury [facility] Medical History (Updated 06/08/25 @ 18:[address] Lasha Martinez, DO) Wears hearing aid Wears glasses Cancer Post-menopausal Bladder disease Arthritis Low iron Back pain Syncope Shortness of breath on exertion Non-smoker Cardiology follow-up encounter Kidney stone Home Medications ?Medication ?Instructions ?Recorded ?Last Taken ?Type ascorbic acid (vitamin C) 1,000 mg 1,000 mg PO DAILY 0 08/09/23 Unknown History tablet,extended release (C Complex) cholecalciferol (vitamin D3) 50 50 mcg PO DAILY Unknown History mcg (2,000 unit) tablet (Vitamin D3) magnesium 250 mg tablet 250 mg PO DAILY 08/09/23 Unk nown History red clover 1,000 mg capsule 1,000 mg PO DAILY 08/09/23 Unknown History vitamin B complex (Complex B-100 1 tab PO DAILY Unknown History tablet,extended release) vitamin E 200 unit capsule 180 mg PO DAILY 08/09/23 Un known History zinc gluconate 50 mg tablet 50 mg PO DAILY 08/09/23 Un known History ipratropium bromide 42 mcg (0.06 2 spray intranasal TI D PRN PRN 01/11/24 Unknown History %) nasal spray allergy symptoms Moringa oleifera 500 mg capsule mg PO 06/02/25 Unknown History metronidazole 500 mg tablet 500 mg PO BID #14 tabs Unknown Rx Allergy/AdvReac Type Severity Reaction Status Date / Time No Known Allergies Allergy Verified 06/08/25 16:45 Surgical History (Updated 05/30/25 @ 08:37 by Josselin Chavez) History of extracorporeal shockwave lithotripsy (ESWL) Hx of colonoscopy Hx of bladder repair surgery Hx of lithotripsy History of mastoidectomy Hx of total knee arthroplasty Hx of hysterectomy Social History Smoking Status: Never smoker EXAM Physical Exam Const Vital Signs: 06/08/25 16:43 06/08/25 16:54 Temperature 98.6 F Temperature Source Oral Pulse Rate 85 Respiratory Rate 16 Respiratory Pattern Normal Blood Pressure 133/64 H Blood Pressure Mean 87 Pulse Ox 98 Oxygen Delivery Method Room Air MDM MDM MDM Narrative Medical decision making narrative: HISTORY OF PRESENT ILLNESS: Chief complaint: Left leg pain 79-year-old female history of nephrolithiasis presents with multiple complaints. She states her chief complaint is left leg pain. She she notes intermittent left leg pain below the knee for the past couple of months. No inciting event. No falls. Denies any PE or DVT risk factors (patient denies active cancer, being bedridden for greater than 3 days, denies unilateral leg swelling, denies any varicose veins, denies any calf tenderness, denies tenderness along deep venous system. Denies major surgery within 12 weeks, recent paralysis, previous DVT.). Patient also has a slew of other complaints have been going on for past couple months as well including headache, nausea and chills. Her daughter states she gets intermittently confused sometimes. They both deny any current symptoms at this time REVIEW OF SYSTEMS: Pertinent positives: Left ankle pain Pertinent negatives: As per HPI PHYSICAL EXAM: Nursing triage notes reviewed, Vital signs reviewed Constitutional: please see [facility] HENT: MMM Eyes: Pupils equal round and reactive to light, Extraocular muscles intact Neck: No stridor, no JVD, full neck ROM Lungs: Clear to auscultation, No wheezing or rales. No increased work of breathing, no conversational dyspnea, no accessory muscle use, no nasal flaring. No respiratory distress noted Heart: Regular rate and rhythm, No murmurs, No rubs and No gallops, 2+ distal pulses (radial, femoral, posterior tibial) in all extremities Abdomen: Soft, there is no tenderness, rigidity, rebound or guarding, no obvious peritoneal signs, no palpable pulsatile abdominal masses, no auscultated abdominal bruit : No CVAT Extremities: No edema, no TTP over left ankle, no deformities, no palpable crepitus, bullae, fluctuance or induration. Left lower extremity is warm and well-perfused. No elicited tenderness to palpation. Neuro: Intact sensation L1-S1 dermatomal distributions. Intact 5/5 strength in hip flexion (T12-L3). Knee extension (L2-L4). Ankle dorsiflexion (L4-L5). Ankle plantar flexion (S1). Great toe extension (L5). 2+ patellar and Achilles DTRs. Skin: No rash or lesions noted MEDICAL DECISION MAKING: Chief Complaint: please see HPI External records reviewed: Last hospitalization in January 2024 for diverticulitis Factors affecting care: Nephrolithiasis, diverticulitis Social determinants of health: none History obtained from others: the patient's daughter Consults: none MDM Narrative: The patient was initially hemodynamically stable, afebrile and nontoxic- appearing. Exam without obvious abnormality to left lower extremity. Left lower extremity is neurovascularly intact. No obvious deformities. No calf tenderness. No edema I considered the following differential diagnosis: Cellulitis, necrotizing fasciitis, DVT, arterial occlusion, bony injury to the I obtained an x-ray to further determine if the patient was suffering from a life-threatening etiology. Offered the patient additional lab testing given her report of headache, nausea and confusion. Offered CT scan of the head, basic labs urinalysis. Patient is alert and orient x 3 in the presence of her daughter noted she would not like to undergo further lab evaluation at this time would prefer to just focus on her left leg pain. ALL IMAGES (IF OBTAINED) HAVE BEEN PERSONALLY REVIEWED AND INTERPRETED BY MYSELF. X-ray left ankle joint reviewed personally so showed no evidence of obvious bony abnormality. The only remaining differential diagnoses that I cannot rule out in the ED by history, physical exam or testing was DVT. Unfortunately we do not have DVT ultrasound (duplex ultrasound) available at [facility] at this time. I did write the patient order for an outpatient ultrasound to be obtained to arrive his bed in business hours as soon as tomorrow. The patient is appropriate for discharge home. Strict return precautions were discussed The patient and/or family, caregivers express understanding. The patient and/or family, caregivers agrees with the plan. Shared decision making: I will have a discussion with the patient and or visitors regarding risk/benefits of further testing or admission. They will be made aware of of the risk/benefits inherent in this decision they will be given the opportunity to voice understanding. Total critical care time today provided was at least 0 minutes. This excludes separately billable procedures. Critical care time (if documented) is secondary to the patient having high probability of clinically significant/life threatening deterioration in the patient's condition which required my urgent intervention. Impression: 1. Left leg pain 2. Left ankle pain Dispo: Discharge home This note was generated with [employer] dictation software. It may contain incorrect words, spelling, and punctuation that were not noted in review of the chart prior to signing. Radiography Diagnostic Testing: Clinical Impression(s) from Imaging Studies Ankle X-Ray 06/08/25 17:55 IMPRESSION: No acute osseous findings. Reading Location: [facility] Discharge Plan Triage Chief Complaint: Lower Extremity Injury Other Complaint: Edema ED Provider: Lasha Martinez Dx/Rx/DC Orders Instructions: What Is Metatarsalgia, ED Peripheral Edema, Unilateral Prescriptions: No Action Moringa oleifera 500 mg capsule PO cholecalciferol (vitamin D3) [Vitamin D3] 50 mcg (2,000 unit) tablet 50 mcg PO DAILY red clover 1,000 mg capsule 1,000 mg PO DAILY zinc gluconate 50 mg tablet 50 mg PO DAILY C Complex 1,000 mg tablet extended release 1,000 mg PO DAILY vitamin E 200 unit capsule 180 mg PO DAILY magnesium 250 mg tablet 250 mg PO DAILY Complex B-100 Tablet Extended Release 1 tab PO DAILY ipratropium bromide 42 mcg (0.06 %) spray,non-aerosol 2 spray INTRANASAL TID PRN PRN (Reason: allergy symptoms) metronidazole 500 mg tablet 500 mg PO BID Qty: 14 0RF Other Ambulatory Orders: Venous Duplex US, Unilateral (Stat) Facility: [facility] - Location: [facility] Ordered By: Dr. Lasha Martinez Primary Care Provider: Michelle Veras Referrals: Michelle Veras MD [Primary Care Provider, Family Practice] Activity Restrictions/Additional Instructions: Thank you for trusting us with your care today! Your x-ray was negative. Please return to her normal business hours tomorrow to obtain your ultrasound. Please bring your order with you. Please take Tylenol (2 pills, 650 mg), ibuprofen (2 pills, 400 mg) every 6 hours as needed for pain and fever control. Please return to the emergency department if your symptoms change or worsen. Specifically you notice discoloration or coolness to touch to extremity. He cannot move or feel your extremity. If you develop chest pain, shortness of breath or if you lose consciousness. Please follow with your primary care physician for further outpatient evaluation and management. Print Language: Italian Disposition Disposition: Home, Self Care Discharge Date/Time: 06/08/25 18:50
--- OUTSIDE RECORDS SUMMARY | 2025-06-08 17:44 | XMS RPT_ITS | CCD ---
Author Organization [facility] Care Team Providers Care Acute Care Nurse Practitioner Name Role Phone AUTUMN COHN PA-C Attending Unavailable PHYSICIAN, NONE Primary Care Unavailable No, Pcp Primary Care Provider Unavailabl e João Villa MD Unavailable [phone] Julianne Joya DO Unavailable [phone] João Villa MD Unavailable Julianne Joya DO Unavailable [phone] Respiratory: normal effort, no audible wheezes Cardiovascular: regular pulse and no cyanosis Musculoskeletal: moving all extremities, normal tone Skin: warm and dry Psych: normal mood and affect, oriented Abdomen: soft, non distended, non tender : L CVA TTP, no R CVA TTP, bladder non-palpable DATA: LABS: BMP: . Glucose (mg/dL) Date Value 07/10/2023 97 Potassium (mmol/L) Date Value 07/10/2023 4.3 Sodium (mmol/L) Date Value 07/10/2023 142 Chloride (mmol/L) Date Value 07/10/2023 109 CO2 (mmol/L) Date Value 07/10/2023 24 Creatinine (mg/dL) Date Value 07/10/2023 0.59 BUN (mg/dL) Date Value 07/10/2023 20 Anion Gap (mmol/L) Date Value 07/10/2023 9 Calcium, Total (mg/dL) Date Value 07/10/2023 9.2 CBC: Hemoglobin (g/dL) Date Value 07/10/2023 12.9 Hematocrit (%) Date Value 07/10/2023 39.9 WBC (k/uL) Date Value 07/10/2023 6.47 Platelet Count (k/uL) Date Value 07/10/2023 176 Urinalysis: Specific [place], Ur Date Value Ref Range Status 07/09/2023 1.012 1.005 - 1.030 Final Glucose, Urine Date Value Ref Range Status 07/09/2023 Negative Trace, Negative Final Bilirubin, Urine Date Value Ref Range Status 07/09/2023 Negative Negative Final Ketones, Urine Date Value Ref Range Status 07/09/2023 Negative Negative, Trace Final Hemoglobin/Blood,Ur Date Value Ref Range Status 07/09/2023 2+ (A) Negative, Trace Final Protein, Urine Date Value Ref Range Status 07/09/2023 Negative Trace, Negative Final Nitrites Date Value Ref Range Status 07/09/2023 Negative Negative Final WBC, Urine Date Value Ref Range Status 07/09/2023 6-10 /HPF (A) 0-5 /HPF Final Urine Culture: pending RADIOLOGY: CT AP 05/10/23 reviewed IMPRESSION: 77 year old female with proximal left ureteral calculus PLAN: - Admit - OR 07/10 for surgical management of the stone - NPO @ [place] - Daily labs - check urine culture - IVF - IV Abx - rocephin - Page with fevers/hypotension - Flomax - Pain/nausea control - Strain urine Thank you for allowing me to participate in the care of your patient Raimn Myers MD Urology, PGY-5 July 10, 2023 1:10 PM Page quality compliance consultant resident with questions Attending Note I have seen examined and evaluated the patient and discussed the case with the resident physician. I agree with the assessment and plan as documented in the resident?s note. Signature: Juan Antonio Walton MD Date: 07/10/2023 Time: 1:54 PM Normal [facility] OPERATIVE NOon 07-10-2023 OPERATIVE NO HNO ID: [id number] Author: JUAN ANTONIO WALTON MD Service: Urology Author Type: Physician Type: Operative Report Filed: 07/10/2023 16:55 Note Text: OPERATIVE/PROCEDURE REPORT LOG ID: [id number] SURGERY/PROCEDURE DATE: 07/10/2023 INCISION/PROCEDURE START TIME: 2:13 PM INCISION CLOSE/PROCEDURE END TIME: 2:59 PM SURGEON(S)/PROCEDURA LIST(S) AND NET TRAINER(S): Surgeon(s) and Role: * Juan Antonio Walton MD - Primary * Reese Myers MD - Resident - Assisting No Additional Staff SURGERY/PROCEDURE(S) : Cystoscopy, left ureteroscopy, laser lithotripsy, stone basket extraction, left ureteral stent insertion (6fr 26cm) ANESTHESIA: General SURGERY/PROCEDURE DETAILS: Yash Francois is a 77 year old patient who presents with a left distal ureteral calculus and pain. After having a discussion on treatment options, risks and benefits, the patient wishes to proceed forward with surgical intervention Patient was brought to the operating room and identified using name band/number. A thorough time out was performed and everyone present was in agreement. Patient was placed on OR table. Anesthesia and lines were maintained by the anesthesia team. Description of Procedure: Patient was placed in the dorsal lithotomy position, prepped with Betadine, and draped in the usual sterile fashion. Pressure points were padded. SCDs were on and functioning prior to the beginning of the procedure. A 21F cystourethroscope was inserted transurethrally into the bladder. There were no bladder lesions and normal mucosa. Bilateral ureteral orifices were in normal anatomic position. An 0.035 glidewire was inserted into the left ureteral orifice to the left kidney. A semi-rigid ureteroscope was advanced alongside the wire to the level of the stone in the left distal ureter. A 200 micron laser fiber was used to fragment the stone into small pieces. These were evacuated with an escape basket and sent for analysis. The ureteroscope was advanced to the left UPJ w/ no evidence of additional ureteral stones. The ureteroscope was removed and the cystoscope back-loaded over the wire. A 6fr 24cm jj ureteral stent was inserted but retracted into the ureter as it was too short. This was removed with ureteroscopy and the basket. A 6fr 26cm jj ureteral stent was then inserted over the wire to the left kidney. Good coil was noted in the left renal pelvic and bladder on fluoroscopy once the wire was removed. The bladder was emptied and the cystoscope removed. Patient awoken from anesthesia having tolerated the procedure well. Yash Francois Was transferred to recovery room. Patient requests to follow up locally with Dr. Littlejohn for definitive mgmt of renal stone and stent removal. PRE-OP/PRE-PROCEDURE DIAGNOSIS: Left ureteral calculus [N20.1] POST-OP/POST-PROCEDU RE DIAGNOSIS: same ESTIMATED BLOOD LOSS: 0 ml SPECIMENS: left ureteral calculus IMPLANTABLE DEVICES: NONE DRAINS: 6fr 26cm jj ureteral stent (left) COMPLICATIONS: None PARTICIPATION IN SURGERY/PROCEDURE: I/primary surgeon/proceduralis t performed the procedure with assistance. SIGNATURE: Reese Myers MD PATIENT NAME: Yash Francois DATE: July 10, 2023 TIME: 3:11 PM PAGER/CONTACT #: [phone] Normal [facility] Absolute lymphocyte countOrd ered By: Guerrero Scott on 07-09-2023 Lymphocytes Auto (Unsp spec) [#/Vol] 1.52 10*3/uL 0.83-4.51 [facility] Automated lymphocyte count a s percentage of total leukocytesOrdered By: Guerrero Scott on 07-09-2023 Lymphocytes/100 WBC Auto (Unsp spec) 22.5 % 19-41 [facility] Bacteria Ur Culton Bacteria identified Cx Nom (U) CULTURE, URINE: <10,000 CFU/ml Normal Urogenital Michael Normal [facility] Comment on above: Performed By: #### 6 30-4 ####[facility] [id number] [place] [address] [place] Basic metabolic 2000 panelon 07-09-2023 Anion gap [Moles/Vol] 10 mmol/L Normal 9-18 [facility] Comment on above: Order Comment: Speci men Type: BLOOD SPECIMEN Ordering Facility: [facility] Address: [address] [place] [address] Performed By: #### 2 4321-2 #### [facility] CLIA [id number] [address] [place] [address] [place] Calcium [Mass/Vol] 9.4 mg/dL Normal 8.5-10.2 [facility] Comment on above: Order Comment: Speci men Type: BLOOD SPECIMEN Ordering Facility: [facility] Address: [address] [place] [address] Performed By: #### 2 4321-2 #### [facility] CLIA [id number] [address] [place] [address] [place] Chloride [Moles/Vol] 107 mmol/L High 97-105 [facility] Comment on above: Order Comment: Speci men Type: BLOOD SPECIMEN Ordering Facility: [facility] Address: [address] [place] [address] Performed By: #### 2 4321-2 #### [facility] CLIA [id number] [address] STATES OF [facility] CO2 [Moles/Vol] 25 mmol/L Normal 22-30 [facility] Comment on above: Order Comment: Speci men Type: BLOOD SPECIMEN Ordering Facility: [facility] Address: [address] [place] [address] Performed By: #### 2 4321-2 #### [facility] CLIA [id number] [address] Creatinine [Mass/Vol] 0.51 mg/dL Low 0.58-0.96 [facility] Comment on above: Order Comment: Speci men Type: BLOOD SPECIMEN Ordering Facility: [facility] Address: [address] [place] [address] Performed By: #### 2 4321-2 #### [facility] CLIA [id number] [address] Creatinine and Glomerular filtration rate.predicted panel (S/P/Bld) 97 mL/min/1.73m??? Normal >=60 [facility] Comment on above: Order Comment: Speci men Type: BLOOD SPECIMEN Ordering Facility: [facility] Address: [address] [place] [address] Result Comment: Paulina mated Glomerular Filtration Rate (eGFR) is calculated using the 2020 CKD-EPI creatinine equation. This equation utilizes serum creatinine, sex, and age as parameters. The creatinine assay has traceable calibration to isotope dilution-mass spectrometry. Refer to KDIGO guidelines for clinical interpretation. In patients with unstable renal function, e.g. those with acute kidney injury, the eGFR may not accurately reflect actual GFR. Performed By: #### 2 4321-2 #### [facility] CLIA [id number] [address] Glucose [Mass/Vol] 107 mg/dL High 74-99 [facility] Comment on above: Order Comment: Speci men Type: BLOOD SPECIMEN Ordering Facility: [facility] Address: [address] [place] [address] Result Comment: The [place] [employer] (ADA) provides guidance for cutoff values for fasting glucose and random glucose. The ADA defines fasting as no caloric intake for at least 8 hours. Fasting plasma glucose results between 100 to 125 mg/dL indicate increased risk for diabetes (prediabetes). Fasting plasma glucose results greater than or equal to 126 mg/dL meet the criteria for diagnosis of diabetes. In the absence of unequivocal hyperglycemia, results should be confirmed by repeat testing. In a patient with classic symptoms of hyperglycemia or hyperglycemic crisis, random plasma glucose results greater than or equal to 200 mg/dL meet the criteria for diagnosis of diabetes. Reference: Standards of Medical Care in Diabetes 2016, [place] [employer]. Diabetes Care. 2016.39(Suppl 1). Performed By: #### 2 4321-2 #### [facility] CLIA [id number] [address] [place] [address] [place] Potassium [Moles/Vol] 4.0 mmol/L Normal 3.7-5.1 [facility] Comment on above: Order Comment: Pankaj men Type: BLOOD SPECIMEN Ordering Facility: [facility] Address: [address] [place] [address] Performed By: #### 2 4321-2 #### [facility] CLIA [id number] [address] [place] [address] [place] Sodium [Moles/Vol] 142 mmol/L Normal 136-144 [facility] Comment on above: Order Comment: Speci men Type: BLOOD SPECIMEN Ordering Facility: [facility] Address: [address] [place] [address] Performed By: #### 2 4321-2 #### [facility] CLIA [id number] [address] [place] [address] [place] Urea nitrogen [Mass/Vol] 18 mg/dL Normal 7-21 [facility] Comment on above: Order Comment: Rodolfoi men Type: BLOOD SPECIMEN Ordering Facility: [facility] Address: [address] [place] [address] Performed By: #### 2 4321-2 #### [facility] CLIA [id number] [address] STATES OF [facility] Basophil percentageOrdered B y: Guerrero Scott on 07-09-2023 Basophils/100 WBC (Bld) 0.9 % 0-1 [facility] Chloride [Moles/Vol] 108 mmol/L 98-107 [facility] Eosinophils/100 WBC (Bld) 1.3 % 0-5 [facility] Glucose [Mass/Vol] 142 mg/dL 74-106 [facility] Comment on above: Fasting Glucose resu lt greater than or equal to 126 mg/dL suggests DIABETES MELLITUS per A.D.A. criteria. Hemoglobin (Bld) [Mass/Vol] 12.6 g/dL 12.0-15.0 [facility] Monocytes/100 WBC (Bld) 3.8 % 0-10 [facility] Neutrophils (Bld) [#/Vol] 4.8 10*3/uL 2.0-7.7 [facility] Neutrophils/100 WBC (Bld) 71.1 % 47-70 [facility] Potassium [Moles/Vol] 3.8 mmol/L 3.5-5.1 [facility] Sodium [Moles/Vol] 138 mmol/L 136-145 [facility] WBC (Bld) [#/Vol] 6.8 10*3/uL 4.4-11.0 [facility] Basophil percentage 25-50 SEEN /hpf 0-5 [facility] Bilirubin Test strip Ql (U)O rdered By: Guerrero Scott on 07-09-2023 Bilirubin Ql (U) Negative Negative [facility] CBC panel Auto (Bld)on 07-09 Erythrocyte distribution width (RBC) [Ratio] 13.6 % Normal 11.5-15.0 [facility] Comment on above: Order Comment: Speci men Type: BLOOD SPECIMEN Ordering Facility: [facility] Address: [address] [place] [address] Performed By: #### 5 8410-2 #### [facility] CLIA [id number] [address] [place] Hematocrit (Bld) [Volume fraction] 40.5 % Normal 36.0-46.0 [facility] Comment on above: Order Comment: Speci men Type: BLOOD SPECIMEN Ordering Facility: [facility] Address: [address] [place] [address] Performed By: #### 5 8410-2 #### [facility] CLIA [id number] [address] OF [facility] Hemoglobin (Bld) [Mass/Vol] 13.0 g/dL Normal 11.5-15.5 [facility] Comment on above: Order Comment: Speci men Type: BLOOD SPECIMEN Ordering Facility: [facility] Address: [address] [place] [address] Performed By: #### 5 8410-2 #### [facility] CLIA [id number] [address] MCH (RBC) [Entitic mass] 28.9 pg Normal 26.0-34.0 [facility] Comment on above: Order Comment: Speci men Type: BLOOD SPECIMEN Ordering Facility: [facility] Address: [address] [place] [address] Performed By: #### 5 8410-2 #### [facility] CLIA [id number] [address] OF [facility] MCHC (RBC) [Mass/Vol] 32.1 g/dL Normal 30.5-36.0 [facility] Comment on above: Order Comment: Speci men Type: BLOOD SPECIMEN Ordering Facility: [facility] Address: [address] [place] [address] Performed By: #### 5 8410-2 #### [facility] CLIA [id number] [address] MCV (RBC) [Entitic vol] 90.0 fL Normal 80.0-100.0 [facility] Comment on above: Order Comment: Speci men Type: BLOOD SPECIMEN Ordering Facility: [facility] Address: [address] [place] [address] Performed By: #### 5 8410-2 #### [facility] CLIA [id number] [address] [place] Nucleated RBC (Bld) [#/Vol] 10*3/uL Normal <0.01 [facility] Comment on above: Order Comment: Speci men Type: BLOOD SPECIMEN Ordering Facility[facility] Address: [address] [place] [address] Performed By: #### 5 8410-2 #### [facility] CLIA [id number] [address] [place] Platelet mean volume (Bld) [Entitic vol] 10.1 fL Normal 9.0-12.7 [facility] Comment on above: Order Comment: Speci men Type: BLOOD SPECIMEN Ordering Facility: [facility] Address: [address] [place] [address] Performed By: #### 5 8410-2 #### [facility] CLIA [id number] [address] Platelets (Bld) [#/Vol] 185 10*3/uL Normal 150-400 [facility] Comment on above: Order Comment: Speci men Type: BLOOD SPECIMEN Ordering Facility: [facility] Address: [address] [place] [address] Performed By: #### 5 8410-2 #### [facility] CLIA [id number] [address] [place] RBC (Bld) [#/Vol] 4.50 10*6/uL Normal 3.90-5.20 [facility] Comment on above: Order Comment: Speci men Type: BLOOD SPECIMEN Ordering Facility: [facility] Address: [address] [place] [address] Performed By: #### 5 8410-2 #### [facility] CLIA [id number] [address] [place] WBC (Bld) [#/Vol] 6.76 10*3/uL Normal 3.70-11.00 [facility] Comment on above: Order Comment: Speci men Type: BLOOD SPECIMEN Ordering Facility: [facility] Address: [address] [place] [id number] Performed By: #### 5 8410-2 #### [facility] CLIA [id number] 1 [place] [address] [place] Determination of erythrocyte mean corpuscular volume (MCV)Ordered By: Guerrero Scott on 07-09-2023 MCV (RBC) [Entitic vol] 89.8 fL 81-99 [facility] Erythrocyte distribution wid th ratioOrdered By: Guerrero Scott on 07-09-2023 Erythrocyte distribution width (RBC) [Ratio] 13.6 % 11.6-14.6 [facility] Erythrocyte distribution wid th standard deviationOrdered By: Guerrero Scott on 07-09-2023 Erythrocyte distribution width (RBC) [Entitic vol] 44.6 fL 35.1-43.9 [facility] Hematocrit Auto (Bld) [Volum e fraction]Ordered By: Guerrero Scott on 07-09-2023 Hematocrit (Bld) [Volume fraction] 40.7 % 37-47 [facility] Hyaline casts LM.LPF (Urine sed) [#/Area]Ordered By: Guerrero Scott on 07-09-2023 Hyaline casts (Urine sed) [#/Area] 0 /[LPF] 0-5 [facility] Immature granulocytes/100 WB C Auto (Bld)Ordered By: Guerrero Scott on 07-09-2023 Immature granulocytes/100 WBC (Bld) 0.400 % 0.0-0.9 [facility] Comment on above: IG% - Immature Granu locytes (promyelocytes, myelocytes and metamyelocytes) > 1% indicates that a LEFT SHIFT is Present. Ketones Test strip Ql (U)Ord ered By: Guerrero Scott on 07-09-2023 Ketones Ql (U) Negative Negative [facility] Laboratory - Chemistry and C hemistry - challengeOrdered By: Guerrero Scott on 07-09-2023 CO2 [Moles/Vol] 27.0 mmol/L 21.0-32.0 [facility] Urea nitrogen/Creatinine [Mass ratio] 36.5 mg/mg 10-20 [facility] - Hematology and Cell countsOrdered By: Guerrero Scott on 07-09-2023 MCH (RBC) [Entitic mass] 27.8 pg 27.0-32.0 [facility] MCHC (RBC) [Mass/Vol] 31.0 g/dL 32-36 [facility] Nucleated RBC/100 WBC (Bld) [Ratio] 0 % 0-5 [facility] Platelets (Bld) [#/Vol] 188 10*3/uL 150-450 [facility] Mucus LM Ql (Urine sed)Order ed By: Guerrero Scott on 07-09-2023 Mucus Ql (Urine sed) 1+ /hpf [facility] Nitrite Test strip Ql (U)Ord ered By: Guerrero Scott on 07-09-2023 Nitrite Ql (U) Negative Negative [facility] No Panel InformationOrdered By: Guerrero Scott on 07-09-2023 Estimated Creatinine Clearance Calc 58.81 ml/min [facility] Estimated GFR (MDRD) Amer 112 mL/min >60 [facility] Comment on above: GFR Calc Estimated GFR (MDRD) Non-Af Amer 93 mL/min >60 [facility] Comment on above: Non- GFR Calc Urine RBC 5-10 SEEN /hpf 0-5 [facility] Platelet mean volume Ermias-Ec ker (Bld) [Entitic vol]Ordered By: Guerrero Scott on 07-09-2023 Platelet mean volume (Bld) [Entitic vol] 10.1 fL 6.2-12.0 [facility] Protein Test strip Ql (U)Ord ered By: Guerrero Scott on 07-09-2023 Protein Ql (U) 30 mg/dl Negative [facility] RBC Auto (Bld) [#/Vol]Ordere d By: Guerrero Scott on 07-09-2023 RBC (Bld) [#/Vol] 4.53 10*6/uL 4.2-5.4 [facility] Serum or plasma calcium chapo urement (mass/volume)Ordered By: Guerrero Scott on 07-09-2023 Calcium [Mass/Vol] 9.7 mg/dL 8.5-10.1 [facility] Serum or plasma creatinine m easurement (mass/volume)Ordered By: Guerrero Scott on 07-09-2023 Creatinine [Mass/Vol] 0.66 mg/dL 0.55-1.02 [facility] Comment on above: The validity of the calculated GFR & GFRAA in patients over 70 years has not been determined. Clinical correlation is essential. Serum or plasma urea nitroge n measurement (mass/volume)Ordered By: Guerrero Scott on 07-09-2023 Urea nitrogen [Mass/Vol] 24 mg/dL 7-18 [facility] Squamous epithelial cells de tection in urine sediment by light microscopyOrdered By: Guerrero Scott on 07-09-2023 Epithelial cells.squamous LM Ql (Urine sed) 5-10 SEEN /hpf 5-10 [facility] Thin prep Papanicolaou smear with manual screeningOrdered By: Guerrero Scott on 07-09-2023 Thin prep Papanicolaou smear with manual screening 3 5-15 [facility] Urinalysis complete panel (U )on 07-09-2023 Bilirubin Ql (U) Negative Normal Negative [facility] Comment on above: Order Comment: Speci men Type: URINE SPECIMEN [facility] Address: [address] [place] [address] Performed By: #### 2 4356-8 #### [facility] CLIA [id number] [address] [place] Clarity (Unsp spec) Clear Normal Clear [facility] Comment on above: Order Comment: Speci men Type: URINE SPECIMEN Order[facility] Address: [address] [place] [address] Performed By: #### 2 4356-8 #### [facility] CLIA [id number] [address] [place] Color (U) Light Yellow Normal yellow [facility] Comment on above: Order Comment: Speci men Type: URINE SPECIMEN Order[facility] Facility[facility] Address: [address] [place] [address] Performed By: #### 2 4356-8 #### [facility] CLIA [id number] [address] [place] [address] [place] Glucose Test strip (U) [Mass/Vol] Negative Normal Trace, Negative [facility] Comment on above: Order Comment: Speci men Type: URINE SPECIMEN Ordering Facility[facility] Address: [address] [place] [address] Performed By: #### 2 4356-8 #### [facility] CLIA [id number] [address] Hemoglobin Ql (U) 2+ Abnormal Negative, Trace [facility] Comment on above: Order Comment: Speci men Type: URINE SPECIMEN Order[facility] Facility[facility] Address: [address] [place] [address] Performed By: #### 2 4356-8 #### [facility] CLIA [id number] [address] [place] Ketones Ql (U) Negative Normal Negative, Trace [facility] Comment on above: Order Comment: Speci men Type: URINE SPECIMEN Order[facility] Facility[facility] Address: [address] [place] [address] Performed By: #### 2 4356-8 #### [facility] CLIA [id number] [address] [place] Leukocyte esterase Test strip Ql (U) 25 [place]/uL Normal Negative, 25 [place]/uL [facility] Comment on above: Order Comment: Speci men Type: URINE SPECIMEN Order[facility] Facility[facility] Address: [address] [place] [address] Performed By: #### 2 4356-8 #### [facility] CLIA [id number] [address] [place] Nitrite Ql (U) Negative Normal Negative [facility] Comment on above: Order Comment: Speci men Type: URINE SPECIMEN Order[facility] Facility[facility] Address: [address] [place] [address] Performed By: #### 2 4356-8 #### [facility] CLIA [id number] [address] [place] pH (U) 7.0 [pH] Normal 5.0-8.0 [facility] Comment on above: Order Comment: Speci men Type: URINE SPECIMEN Ordering Facility[facility] Address: [address] [place] [address] Performed By: #### 2 4356-8 #### [facility] CLIA [id number] [address] Protein (U) [Mass/Vol] Negative Normal Trace , Negative [facility] Comment on above: Order Comment: Speci men Type: URINE SPECIMEN Order[facility] Facility[facility] Address: [address] [place] [address] Performed By: #### 2 4356-8 #### [facility] CLIA [id number] [address] RBC LM.HPF (Urine sed) [#/Area] /[HPF] Abnormal 0-3 /HPF [facility] Comment on above: Order Comment: Speci men Type: URINE SPECIMEN Ordering Facility: [facility] Address: [address] [place] [address] Performed By: #### 2 4356-8 #### [facility] CLIA [id number] [address] Specific gravity (U) [Rel density] 1.012 Normal 1.005-1.030 [facility] Comment on above: Order Comment: Speci men Type: URINE SPECIMEN Ordering Facility: [facility] Address: [address] [place] [address] Performed By: #### 2 4356-8 #### [facility] CLIA [id number] [address] Urobilinogen Ql (U) Normal Normal Negative [facility] Comment on above: Order Comment: Speci men Type: URINE SPECIMEN Ordering Facility: [facility] Address: [address] [place] [address] Performed By: #### 2 4356-8 #### [facility] CLIA [id number] [address] [place] WBC LM.HPF (Urine sed) [#/Area] 6-10 /HPF Abnormal 0-5 /HPF [facility] Comment on above: Order Comment: Speci men Type: URINE SPECIMEN Ordering Facility: [facility] Address: [address] [id number] Performed By: #### 2 4356-8 #### [facility] CLIA [id number] 1 [place] [id number] [place] Urine blood detectionOrdered By: Guerrero Scott on 07-09-2023 RBC Ql (U) 250 /ul Negative [facility] Urine clarityOrdered By: Andres Scott on 07-09-2023 Clarity (U) Sl. Cloudy Clear [facility] Urine color determinationOrd ered By: Guerrero Scott on 07-09-2023 Color (U) Yellow Yellow [facility] Urine glucose detectionOrder ed By: Guerrero Scott on 07-09-2023 Glucose Ql (U) Normal mg/dl Normal [facility] Urine leukocyte esterase det ection by dipstickOrdered By: Guerrero Scott on 07-09-2023 Leukocyte esterase Test strip Ql (U) 25 /ul Negative [facility] Urine pHOrdered By: Guerrero molina on 07-09-2023 pH (U) 7.0 [pH] 5.0 - 8.0 [facility] Urine sediment bacteria coun t by microscopy (number/high power field)Ordered By: Guerrero Scott on 07-09-2023 Bacteria LM.HPF (Urine sed) [#/Area] 2 /[HPF] None Seen [facility] Urine sediment erythrocyte c ast detection by light microscopyOrdered By: Guerrero Scott on 07-09-2023 RBC casts LM Ql (Urine sed) 0-5 SEEN /lpf None Seen [facility] Urine sediment leukocyte jada t count by microscopy (number/low power field)Ordered By: Guerrero Scott on 07-09-2023 WBC casts LM.LPF (Urine sed) [#/Area] 0 SEEN /lpf None Seen [facility] Urine specific gravity measu rementOrdered By: Guerrero Scott on 07-09-2023 Specific gravity (U) [Rel density] 1.015 1.002-1.030 [facility] Urine urobilinogen measureme ntOrdered By: Guerrero Scott on 07-09-2023 Urobilinogen Ql (U) Normal mg/dl Normal [facility] 36on 06-15-2023 36 Just order the Lab as you would for [facility] and I will print and fax. Thanks Shital Le LPN, on 06/15/23 at 11:13 AM. [facility] Progress Noteon 06-15-2023 Progress Note Lab printed and faxed to requested location. Christina Francisco MD 06/15/2023 11:[address] 06-09-2023 36 Patient called stating that Dr. Francisco wanted her to have Lab work done , due to taking Lamisil. Patient would like a Lab order faxed to [facility] in [place] fax no is [phone] Shital Le LPN, on 06/09/23 at 2:[address] 05-30-2023 36 Spoke with pt that we are not contracted with [facility] and would be considered self pay - Pt states she is in [place] and will be follow up with [place] [facility] and did not want to schedule surgery due to insurance and distance. [facility] 36 ----- Message from João Villa MD sent at 05/24/2023 4:38 PM EST ----- Cystoscopy, left ureteroscopy, laser lithotripsy and stent [address] 05-29-2023 36 Daughter Carmen called back to help get pt scheduled for surgery for kidney stones with DR Villa. Spoke with Nora Villa's spud driller who stated she will give Carmen a call back. New Phone number [phone]. Routed message to Nora. [address] 05-26-2023 36 Daughter notified and stated they picked up last night. [address] 05-25-2023 36 S: Patient's dtr spoke with [facility] nurse regarding Post op problem B: Onset of symptoms/concern N/A A: Pt was seen by urology yesterday for kidney stones. Daughter stating that Dr Villa told the pt that he was going to order Percocet and something for nausea, but nothing was sent to pharmacy. R: Called placed to urology office. Spoke with Cata who states she will relay the request to Dr Villa who is with another pt at this time. Patient's dtr understands care advice. No further needs at this time. Instructed to call back with new or worsening symptoms. Reason for Disposition Prescription not at pharmacy and was prescribed by PCP recently (Exception: triager has access to EMR and prescription is recorded there. Go to Home Care and confirm for pharmacy.) Protocols used: Medication Question [id number] [facility] Office Visiton 05-24-2023 Follow-up visit [id number] Yash Francois 1945 F Date Provider Department Center 05/24/2023 JOÃO العراقي [facility] UR None No family history on file Level of Service:03717 RI OFFICE/OUTPATIENT ESTABLISHED MOD [facility] 30-39 MIN Reason for Visit and Comments: Nephrolithiasis [910505] - [address] Joya in [facility] ED approx 2 weeks ago for stones [facility] Progress Noteon 05-24-2023 Progress Note João Villa MD 05/24/2023 at 4:41 PM Office follow up PATIENT NAME: Yash Francois DATE OF : 1945 TODAY'S DATE: 05/24/2023 CHIEF COMPLAINT: Chief Complaint Patient presents with Nephrolithiasis [address] Joya in [facility] ED approx 2 weeks ago for stones [...] COLONOSCOPY EXTRACORPOREAL SHOCK WAVE LITHOTRIPSY Left 07/06/2022 cystoscopy,retrograd e pyelogram- dr. Joya HYSTERECTOMY KNEE ARTHROPLASTY Right [...] mg) by mouth daily. 05/18/23 06/29/23 Yes Christina Francisco MD Vitamin E 100 units tablet Take [...] BILIRUBINUR Negative 06/07/2022 Review: CT reviewed from [place] [facility] I discussed the procedure of ureteroscopy. [...] I explained the patinet about the ESWL procedure. (more content not included)... [facility] 36on 05-19-2023 36 See documentation in the TE. [facility] 36 Spoke with Carmen and let her know the medication has been sent to the pharmacy. Also told her lab needs done and pt needs an appointment. She is not currently at home and will call back. [facility] 36 I sent a refill to the pharmacy for this medication prior and requested an office visit so that LFTs can be monitored. Christina Francisco MD 05/19/2023 11:01 AM [facility] 36on 05-18-2023 36 It is important for this patient to have her liver enzymes tested while being on this medication. Can we please have the patient scheduled for visit. Christina Francisco MD 05/18/2023 5:43 PM [facility] 36 S: Patient spoke with [facility] nurse regarding medication problem B: Onset of symptoms/concern last OV 04/05/23 A: Pt's daughter-Carmen called concerned about running out of her medication for Toe nail fungus. Concerned about break in therapy. Labs were drawn on the day they were ordered, not able to see in [facility]. Confirmed follow up appt is 06/08/23 at 4:15pm with Dr. Ramirez. Pharmacy and allergies verified. R: Message sent to provider for review and recommendation. Attn office: please call Marta [phone] with provider's response. Patient understands care advice. No further needs at this time. Patient instructed to call back with new or worsening symptoms. Reason for Disposition ? [1] Caller has NON-URGENT medicine question about med that PCP prescribed AND [2] triager unable to answer question Protocols used: Medication [id number] 36 Patient only has 1 dosage left Medication [...] doctor or facility: N/A Ordering provider: Dr Francisco Date of last office visit: 04/05/23 Date of next office visit: 06/08/2023 Date of last refill: (see medication tab): 04/05/23 Updated/Validated preferred pharmacy: Yes Patient instructed to contact the pharmacy prior to picking up the medication: Yes [facility] 36on 05-12-2023 36 Pt returning a call to office. Read Aida's message verbatim to pt. Pt states she has some fatigue from traveling but overall feels fine. Pt voiced understanding to keep appt 05/24/[address] Villa in [place]. [facility] 36 Attempted to speak to pt via telephone regarding recent visit to [place] [facility] 05/10/2023 and request for appointment 05/12/2023. Pt did not answer, and voicemail box is not setup. Please reach out to pt to see if she is doing well. Pt has appt 05/24/[address] Villa that she can keep, appt does not need to be moved up at this time. Thank you! [facility] 36 Name of caller: Yash Contact phone number: [phone] Relationship to Patient: patient Provider: [facility]: [...] business hours to return their call: Yes [facility] 36on 05-11-2023 36 Name of caller requesting page:[employer] Phone Number of caller: [phone] Facility requesting page: [place] [facility] Reason for Page: Requesting a doctor to doctor (Dr. Gonzalez Yañez) Provider paged: Dr. [facility] Name of paged provider: [facility] Page Placed to #: Secure Chat Time Page was sent or provider contacted: 11:35 pm Page Content: PAGED [facility] from [facility] for pt Stuart Francois 1945 re doctor to doctor request (Dr. Gonzalez Yañez) [phone] [facility] Absolute lymphocyte countOrd ered By: Gonzalez Yañez on 05-10-2023 Lymphocytes Auto (Unsp spec) [#/Vol] 1.49 10*3/uL 0.83-4.51 [facility] Amorphous sediment detection in urine sediment by light microscopyOrdered By: Gonzalez Yañez on 05-10-2023 Amorphous sediment LM Ql (Urine sed) 2+ [facility] Basophil percentageOrdered B y: Gonzalez Yañez on 05-10-2023 Basophils/100 WBC (Bld) 0.6 % 0-1 [facility] Chloride [Moles/Vol] 110 mmol/L 98-107 [facility] Eosinophils/100 WBC (Bld) 2.3 % 0-5 [facility] Glucose [Mass/Vol] 135 mg/dL 74-106 [facility] Comment on above: Fasting Glucose resu lt greater than or equal to 126 mg/dL suggests DIABETES MELLITUS per A.D.A. criteria. Neutrophils (Bld) [#/Vol] 5.5 10*3/uL 2.0-7.7 [facility] Neutrophils/100 WBC (Bld) 70.3 % 47-70 [facility] Potassium [Moles/Vol] 4.0 mmol/L 3.5-5.1 [facility] Sodium [Moles/Vol] 141 mmol/L 136-145 [facility] WBC (Bld) [#/Vol] 7.8 10*3/uL 4.4-11.0 [facility] Basophil percentage 0-5 SEEN /hpf 0-[address] [facility] Bilirubin Test strip Ql (U)O rdered By: Gonzalez Yañez on 05-10-2023 Bilirubin Ql (U) Negative Negative [facility] Blood erythrocytes count (nu mber/volume)Ordered By: Gonzalez Yañez on 05-10-2023 RBC (Bld) [#/Vol] 4.30 10*6/uL 4.2-5.4 [facility] Blood hemoglobin measurement (mass/volume)Ordered By: Gonzalez Yañez on 05-10-2023 Hemoglobin (Bld) [Mass/Vol] 12.2 g/dL 12.0-15.0 [facility] Blood lymphocytes/100 leukoc ytesOrdered By: Gonzalez Yañez on 05-10-2023 Lymphocytes/100 WBC (Bld) 19.1 % 19-41 [facility] Blood monocytes/100 leukocyt esOrdered By: Gonzalez Yañez on 05-10-2023 Monocytes/100 WBC (Bld) 7.2 % 0-10 [facility] Blood platelet mean volumeOr dered By: Gonzalez Yañez on 05-10-2023 Platelet mean volume (Bld) [Entitic vol] 10.1 fL 6.2-12.0 [facility] Determination of erythrocyte mean corpuscular volume (MCV)Ordered By: Gonzalez Yañez on 05-10-2023 MCV (RBC) [Entitic vol] 89.1 fL 81-99 [facility] Hematocrit Auto (Bld) [Volum e fraction]Ordered By: Gonzalez Yañez on 05-10-2023 Hematocrit (Bld) [Volume fraction] 38.3 % 37-47 [facility] Ketones Test strip Ql (U)Ord ered By: Gonzalez Yañez on 05-10-2023 Ketones Ql (U) Negative Negative [facility] Laboratory - Chemistry and C hemistry - challengeOrdered By: Gonzalez Yañez on 05-10-2023 CO2 [Moles/Vol] 26.0 mmol/L 21.0-32.0 [facility] Urea nitrogen/Creatinine [Mass ratio] 27.5 mg/mg 10-20 [facility] Laboratory - Hematology and Cell countsOrdered By: Gonzalez Yañez on 05-10-2023 Erythrocyte distribution width (RBC) [Entitic vol] 45.1 fL 35.1-43.9 [facility] Erythrocyte distribution width (RBC) [Ratio] 13.9 % 11.6-14.6 [facility] Immature granulocytes/100 WBC (Bld) 0.500 % 0.0-0.9 [facility] Comment on above: IG% - Immature Granu locytes (promyelocytes, myelocytes and metamyelocytes) > 1% indicates that a LEFT SHIFT is Present. MCH (RBC) [Entitic mass] 28.4 pg 27.0-32.0 [facility] Nucleated RBC/100 WBC (Bld) [Ratio] 0 % 0-5 [facility] MCHC Auto (RBC) [Mass/Vol]Or dered By: Gonzalez Yañez on 05-10-2023 MCHC (RBC) [Mass/Vol] 31.9 g/dL 32-36 [facility] Mucus LM Ql (Urine sed)Order ed By: Gonzalez Yañez on 05-10-2023 Mucus Ql (Urine sed) 0 SEEN /hpf [facility] Nitrite Test strip Ql (U)Ord ered By: Gonzalez Yañez on 05-10-2023 Nitrite Ql (U) Negative Negative [facility] No Panel InformationOrdered By: Gonzalez Yañez on 05-10-2023 Estimated Creatinine Clearance Calc 37.92 ml/min [facility] Estimated GFR (MDRD) Amer 63 mL/min >60 [facility] Comment on above: GFR Calc Estimated GFR (MDRD) Non-Af Amer 52 mL/min >60 [facility] Comment on above: Non- GFR Calc Platelets bldOrdered By: Linda Yañez on 05-10-2023 Platelets (Bld) [#/Vol] 179 10*3/uL 150-450 [facility] Protein Test strip Ql (U)Ord ered By: Gonzalez Yañez on 05-10-2023 Protein Ql (U) Negative Negative [facility] Serum or plasma calcium chapo urement (mass/volume)Ordered By: Gonzalez Yañez on 05-10-2023 Calcium [Mass/Vol] 9.6 mg/dL 8.5-10.1 [facility] Serum or plasma creatinine m easurement (mass/volume)Ordered By: Gonzalez Yañez on 05-10-2023 Creatinine [Mass/Vol] 1.09 mg/dL 0.55-1.02 [facility] Comment on above: The validity of the calculated GFR & GFRAA in patients over 70 years has not been determined. Clinical correlation is essential. Serum or plasma urea nitroge n measurement (mass/volume)Ordered By: Gonzalez Yañez on 05-10-2023 Urea nitrogen [Mass/Vol] 30 mg/dL 7-18 [facility] Squamous epithelial cells de tection in urine sediment by light microscopyOrdered By: Gonzalez Yañez on 05-10-2023 Epithelial cells.squamous LM Ql (Urine sed) 0-5 SEEN /hpf 5-10 [facility] Thin prep Papanicolaou smear with manual screeningOrdered By: Gonzalez Yañez on 05-10-2023 Thin prep Papanicolaou smear with manual screening 5 5-15 [facility] Urine blood detectionOrdered By: Gonzalez Yañez on 05-10-2023 RBC Ql (U) 25 /ul Negative [facility] RBC Ql (U) 0-5 SEEN /hpf 0-5 [facility] Urine clarityOrdered By: Linda Yañez on 05-10-2023 Clarity (U) Cloudy Clear [facility] Urine color determinationOrd ered By: Gonzalez Yañez on 05-10-2023 Color (U) Yellow Yellow [facility] Urine glucose detectionOrder ed By: Gonzalez Yañez on 05-10-2023 Glucose Ql (U) Normal mg/dl Normal [facility] Urine leukocyte esterase det ection by dipstickOrdered By: Gonzalez Yañez on 05-10-2023 Leukocyte esterase Test strip Ql (U) Negative Negative [facility] Urine pHOrdered By: Gonzalez moseley on 05-10-2023 pH (U) 7.0 [pH] 5.0 - 8.0 [facility] Urine sediment bacteria coun t by microscopy (number/high power field)Ordered By: Gonzalez Yañez on 05-10-2023 Bacteria LM.HPF (Urine sed) [#/Area] 0 /[HPF] None Seen [facility] Urine specific gravity measu rementOrdered By: Gonzalez Yañez on 05-10-2023 Specific gravity (U) [Rel density] 1.015 1.002-1.030 [facility] Urobilinogen Auto test strip Ql (U)Ordered By: Gonzalez Yañez on 05-10-2023 Urobilinogen Ql (U) Normal mg/dl Normal [facility] Office Visiton 04-05-2023 Follow-up visit [id number] Yash Francois 1945 F Date Provider Department Center 04/05/2023 [id number] FRANCISCO [facility] None Chart Close Cosign Accepted by: SARAH MCFARLANE[[email or web address]] Chart Close Cosign Accepted on: MonApr 06, 2023 10:03 AM No family history on file Level of Service:28807 RI OFFICE/OUTPATIENT ESTABLISHED LOW MDM 20-29 MIN Reason for Visit and Comments: Nail Problem [[id number]] Normal [facility] Progress Noteon 04-05-2023 Progress Note Pt asked if they have been to specialist,been in ER /hospitalized or had testing since last visit. no Normal [facility] Progress Note [facility] [address] [facility] [address] Dept: [phone] Dept Loc: [phone] Visit type: Established patient Reason for Visit: Nail Problem Assessment and Plan Comment: Patient was previously treated with terbinafine therapy with good response. Last dosage was 2 weeks ago restarting regimen for an additional 6 weeks. Follow-up l liver enzymes abs in 1 month. Plan: 1. Onychomycosis - terbinafine (LamISIL) 250 MG tablet; Take 1 tablet (250 mg) by mouth daily., arting 04/05/2023, Until Mon05/17/2023, Normal 2. Adverse effect of [...] light-headedness and headaches. Hematological: Negative for adenopathy. Psychiatric/Behavior al: Negative for agitation. Medications reviewed Medical history reviewed Allergies reviewed Objective BP 130/75 Pulse 73 Temp 36.4 ?C (97.6 ?F) (Temporal) Ht 5' 4 (1.626 m) Wt 158 lb 4.8 oz (71.8 kg) BMI 27.17 kg/m? Last 3 weights: Wt Readings from Last [...] No recent imaging/testing reviewed Sarah Mcfarlane MD [facility] 04/06/23 10:02 AM [facility] Progress Note Patient was able to ambulate safely to the examination room. Provider was not notified of possible fall risk [facility] Progress Note INDIRECT SUPERVISION THIS SERVICE IS TO BE [...] with the resident's assessment and treatment plan. [facility] 36on 03-27-2023 36 Patient called and scheduled an appointment on 04/05 AT 315PM [facility] 36 Name of caller: Yash Contact phone number: [phone] Relationship to Patient: patient Provider: tiarra Practice: [facility] Chief Complaint/Reason for Call: Yash called stating her toe nail fungus is not cleared up and she has one pill left of the medication that he gave her. Please advise on refill or next steps . Best time of day caller can be reached: any Patient advised that office/PCP has 24-48 business hours to return their call: no [facility] Office Visiton 03-16-2023 Follow-up visit [id number] Yash Francois 1945 F Date Provider Department Center 03/16/2023 62PETER CHERRY [facility] None Chart Close Cosign Accepted by: TYESHA CARRASCO[[id number]] Chart Close Cosign Accepted on: MonMar 20, 2023 8:02 AM No family history on file Level of Service:60899 RI OFFICE/OUTPATIENT ESTABLISHED MDM 10-19 MIN Reason for Visit and Comments: Blood Work [932707] - Went to get blood work and order was not there. [facility] Progress Noteon 03-16-2023 Progress Note [facility] [address] [facility] [address] Dept: [phone] Dept Loc: [phone] Visit type: Established patient Reason for Visit: Blood Work (Went to get blood work and order was not there.) Assessment and Plan 1. Onychomycosis Comments: Will obtain CMP. Continue terbinafine for total 12 weeks. Normal liver function on initial CMP. Patient was involved and agreeable in shared decision making. Follow up in about 6 months (around 09/15/2023) for Next scheduled follow-up. Subjective Yahs Francois is a 77 y.o. year old [...] Patient Position: Sitting) Pulse 64 Temp 36.5 ?C (97.7 ?F) (Temporal) Ht 5' 4 (1.626 m) Wt 160 lb 14.4 oz (73 kg) BMI 27.62 kg/m? Physical Exam Vitals reviewed. Constitutional: Appearance: Normal [...] discoloration. Neurological: Mental Status: She is alert. Peter Patrick MD [facility] 03/17/23 1:40 PM [facility] Progress Note INDIRECT SUPERVISION THIS SERVICE IS TO BE [...] with the resident's assessment and treatment plan. [facility] Progress Note Patient was able to ambulate safely to the examination room. Provider was not notified of possible fall risk [facility] Progress Note Pt asked if they have been to specialist,been in ER /hospitalized or had testing since last visit. Yes lung doctor [facility] 36on 03-09-2023 36 Pt is scheduled for 04/12/[address] Villa[address] [place] [address] 03-08-2023 36 Pt LVM returning our call. Called pt and unable to LVM as mailbox is not set up. [place] [address] Called Yash at number listed below and there is no VM set up. [place] [address] Name of Caller: Yash Contact Phone Number: [phone] Reason for Appointment: Pt missed appt for 02.23 and would like to r/s appt. Please call her The appt was for *Follow up in about 6 months (around 02/22/2023) for stone follow up (KUB/CONSUELO prior). Office Name: urology Medication Refills need, if any: n/a Medication Name: n/a [facility] Office Visiton 03-06-2023 Follow-up visit [id number] Yash Francois 1945 F Date Provider Department Center 03/06/2023 NIYAH RODRIGUEZ [facility] None No family history on file Level of Service:24550 RI OFFICE/OUTPATIENT ESTABLISHED LOW MDM 20-29 MIN Reason for Visit and Comments: New Patient [542] Normal [facility] PATINSon 03-06-2023 PATINS YOUR APPOINTMENT TODAY WAS WITH [facility], COPD CLINIC, PULMONARY AND SLEEP MEDICINE OFFICE. PLEASE CALL OUR OFFICE AT [phone] IF YOU HAVE NOT RECEIVED YOUR TEST [...] to make improvements. COVID-19 VACCINATION INFORMATION: PH. [phone] [facility]/CORONAVIR US/VACCINE [facility] Central Scheduling [phone] [facility] Sleep Scheduling [phone] Normal [facility] Progress Noteon 03-06-2023 Progress Note [facility] [address] [facility] [address] [facility] [address] Dept: [phone] Dept Visit type: Reason for Visit: New Patient History of Present Illness: NIKKIE Francois is a 77 y.o. female patient [...] chemicals, or exotic. 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 Energy level is adequate. No night [...] kg) SpO2 93% Comment: RA BMI 26.80 kg/m? Physical Exam: Physical Exam Vitals reviewed. Constitutional: [...] documenting on the day of the visit. Electronically signed by Niyah Clayton (more content not included)... [facility] US RETROPERITONEALon 023 US RETROPERITONEAL Patient Name: [facility] 1945 [id number] Exam Date/Time: 02/15/2023 16:24 Procedure: US RETROPERITONEAL Ordering Provider: JOYA ELIZABETH Reason For Exam: Nephrolithiasis RENAL ULTRASOUND: INDICATION: Nephrolithiasis COMPARISON: No prior studies are available for comparison. Sonographic images of the bilateral kidneys and bladder were obtained. The right kidney measures 11.4 x 5.9 x 4.2 cm. Parenchymal echotexture is normal. No focal lesions are seen. There is no evidence of hydronephrosis or renal calculus. The left kidney measures 11.4 x 6.3 x 6.1 cm. Parenchymal echotexture is normal. No focal lesions are seen. There are at least 3-4 nonobstructing left renal calculi. No mass or fluid collection is seen adjacent to the kidneys. The bladder is grossly unremarkable. IMPRESSION: Nonobstructing left renal calculi. Otherwise unremarkable renal ultrasound. Report Dictated on Electronically Signed By: Kenny Mathis DO Electronically Signed Date/Time: 02/16/2023 8:46 AM EDT [facility] US Retroperitoneumon 023 Nonobstructing left renal calculi. Otherwise unremarkable renal ultrasound. Report Dictated on Electronically Signed By: Kenny Mathis DO Electronically Signed Date/Time: 02/16/2023 8:46 AM EDT [facility] Patient Name: YASH FRANCOIS : 1945 Exam Date/Time: 02/15/2023 16:24 Procedure: US RETROPERITONEAL Ordering Provider: JOYA ELIZABETH Reason For Exam: Nephrolithiasis RENAL ULTRASOUND: INDICATION: Nephrolithiasis COMPARISON: No prior studies are available for comparison. Sonographic images of the bilateral kidneys and bladder were obtained. The right kidney measures 11.4 x 5.9 x 4.2 cm. Parenchymal echotexture is normal. No focal lesions are seen. There is no evidence of hydronephrosis or renal calculus. The left kidney measures 11.4 x 6.3 x 6.1 cm. Parenchymal echotexture is normal. No focal lesions are seen. There are at least 3-4 nonobstructing left renal calculi. No mass or fluid collection is seen adjacent to the kidneys. The bladder is grossly unremarkable. [facility] DelfinaKenny molina, - 02/16/2023 Patient Name: YASH FRANCOIS : 1945 Exam Date/Time: 02/15/2023 16:24 Procedure: US RETROPERITONEAL Ordering Provider: JOYA ELIZABETH Reason For Exam: Nephrolithiasis RENAL ULTRASOUND: INDICATION: Nephrolithiasis COMPARISON: No prior studies are available for comparison. Sonographic images of the bilateral kidneys and bladder were obtained. The right kidney measures 11.4 x 5.9 x 4.2 cm. Parenchymal echotexture is normal. No focal lesions are seen. There is no evidence of hydronephrosis or renal calculus. The left kidney measures 11.4 x 6.3 x 6.1 cm. Parenchymal echotexture is normal. No focal lesions are seen. There are at least 3-4 nonobstructing left renal calculi. No mass or fluid collection is seen adjacent to the kidneys. The bladder is grossly unremarkable. IMPRESSION: Nonobstructing left renal calculi. Otherwise unremarkable renal ultrasound. Report Dictated on Electronically Signed By: Kenny Mathis DO Electronically Signed Date/Time: 02/16/2023 8:46 AM EDT [facility] RetroperitoneumOrdered By : Kenny Mathis on 02-16-2023 [facility] Work Phone: Retroperitoneumon 023 Radiology Study observation (narrative) [facility] 36on 02-14-2023 36 Name of caller: Yash Contact phone number: [phone] Relationship to Patient: patient Provider: Practice: Urology Chief Complaint/Reason for Call: Patient is requesting a call back to reschedule her appointment on 02/23 due to schedule conflict. Please advise Best time of day caller can be reached: Any Patient advised that office/PCP has 24-48 business hours to return their call: No [facility] 36 Returned phone call., voicemail not set up yet Gloria Anderson [facility] 36 Attempted to call pt to reschedule previous No show SEAMAN appointment. Unable to leave a voicemail as mailbox has not been set up. [facility] Office Visiton 02-14-2023 Follow-up visit [id number] Yash Francois 1945 F Date Provider Department Center 02/14/2023 [id number]-DLQSANDRO ROJAS [facility] FAMILY P None Chart Close Cosign Accepted by: AALIYAH ORTIZ[[id number]] Chart Close Cosign Accepted on: Wed Feb 15, 2023 8:14 AM No family history on file Level of Service:05810 [place] OFFICE/OUTPATIENT ESTABLISHED LOW MDM 20-29 MIN Reason for Visit and Comments: Follow-up [304444] [facility] Progress Noteon 02-14-2023 Progress Note Pt asked if they have been to specialist,been in ER /hospitalized or had testing since last visit. no [facility] Progress Note Patient was able to ambulate safely to the examination room. Provider was not notified of possible fall risk [facility] Progress Note INDIRECT SUPERVISION THIS SERVICE IS TO BE [...] with the resident's assessment and treatment plan. -Aaliyah Ortiz MD, [facility] Family Medicine [facility] Progress Note [facility] [address] [facility] [address] Dept: [phone] Dept Loc: [phone] Visit type: Established patient Reason for Visit: Follow-up Assessment and Plan 1. Multiple lung nodules - [facility] [facility] 2. Benign paroxysmal positional vertigo of right ear - [facility] Physical Therapy Jany Wyatt 3. Onychomycosis - Comprehensive metabolic panel - terbinafine (LamISIL) 250 MG tablet; Take 1 tablet (250 mg) by mouth daily., Starting Mon02/14/2023, Until Mon03/28/2023, Normal - CT showed multiple [...] BP 121/67 Pulse 74 Temp (!) 35.8 ?C (96.4 ?F) (Temporal) Ht 5' 4.5 (1.638 m) Wt 158 lb 8 oz (71.9 kg) BMI 26.79 kg/m? Physical Exam Vitals reviewed. Constitutional: Appearance: Normal [...] Neurological: Mental Status: She is alert. Sandro Kerr MD [facility] Medicine 02/14/23 4:23 PM [facility] 36on 02-13-2023 36 Name of caller: Yash Contact phone number: [phone] Relationship to Patient: patient Provider: Alee Practice: Pulmonology Chief Complaint/Reason for Call: Patient would like to schedule a new patient appointment. She would like the latest possible time of day available for appt. Please call [phone] Best time of day caller can be reached: any Patient advised that office/PCP has 24-48 business hours to return their call: Yes [facility] 36on 02-12-2023 36 Preferred contact number: [phone] Reason for Visit: Pt started a new job and needs to cx and r/s appt for 02.23.23. Please call to r/s Urgency of Appointment: urology Medications in need of refill: n/a [facility] 36on 01-25-2023 36 Patient was called by JAYLIN Coker Called pt no voicemail box unable to leave ms we will try patient again. [facility] Office Visiton 01-16-2023 Follow-up visit [id number] Yash Francois 1945 F Date Provider Department Center 01/16/2023 [id number]-WRBSANDRO ROJAS [facility] FAMILY P None Chart Close Cosign Accepted by: SARAH MCFARLANE[JANAK] Chart Close Cosign Accepted on: MonJan 17, 2023 1:55 PM No family history on file Level of Service:10189 [place] OFFICE/OUTPATIENT ESTABLISHED LOW MDM 20-29 MIN Reason for Visit and Comments: Results [95] [facility] Progress Noteon 01-16-2023 Progress Note Pt asked if they have been to specialist,been in ER /hospitalized or had testing since last visit. yes [facility] Progress Note INDIRECT SUPERVISION THIS SERVICE IS TO BE [...] with the resident's assessment and treatment plan. [facility] Progress Note [facility] [address] [facility] [address] Dept: [phone] Dept Loc: [phone] Visit type: Established patient Reason for Visit: Results Assessment and Plan 1. Liver lesion - US abdomen limited 2. Multiple lung nodules - [facility] [place] [facility] - [facility] [facility]od[facility] 3. Acute bilateral low back pain without sciatica - [facility] Physical Therapy Jany [place] [facility] showed 2mm nodule. HX of hemoptysis. [...] Objective BP 128/63 Pulse 68 Temp 36.7 ?C (98 ?F) (Temporal) Ht 5' 4.5 (1.638 m) Wt 159 lb 14.4 oz (72.5 kg) BMI 27.02 kg/m? Physical Exam Vitals reviewed. Constitutional: Appearance: Normal [...] Neurological: Mental Status: She is alert. Sandro Kerr MD [facility] Family Medicine 01/16/23 4:51 PM [facility] Progress Note Patient was able to ambulate safely to the examination room. Provider was not notified of possible fall risk [facility] 36on 01-05-2023 36 Error. [facility] CT ABDOMEN PELVIS W CONTRAST on 01-03-2023 CT ABDOMEN PELVIS W CONTRAST Patient Name: YASH FRANCOIS : 1945 Exam Date/Time: 12/30/2022 14:47 Procedure: CT ABDOMEN PELVIS W CONTRAST Ordering Provider: PARKER GIN Reason For Exam: Abdominal pain, acute, nonlocalized CT ABDOMEN AND PELVIS WITH CONTRAST CLINICAL INDICATION: Abdominal pain, kidney stone TECHNIQUE: Transaxial sequence was performed through the abdomen and pelvis during the intravenous infusion of 75 mL nonionic contrast media . Oral contrast: Not given Dose reduction was employed with automated exposure control. COMPARISON: 07/20/2022 CT abdomen and pelvis FINDINGS: Lung bases: No pleural effusion or focal consolidation. Fat-containing posterior diaphragmatic hernias noted. Chest wall: Unremarkable. Liver: The liver is normal in size and contour. In the posterior right hepatic lobe, circumscribed enhancing structure is noted measuring approximately 1.2 x 1.0 cm in maximal axial dimensions (series 12 axial image 27). Findings may reflect flash filling hemangioma. Biliary system: The biliary system is not dilated. Punctate cholelithiasis without evidence of cholecystitis is observed. Spleen: The spleen is normal in size and contour. Pancreas: No significant abnormality. Adrenal glands: No significant abnormality. Kidneys/ Ureter: The bilateral kidneys are normal in size and contour. No evidence of hydroureteronephrosi s. Interval removal of left ureteral stent. Nonobstructive nephrolithiasis is noted in the left kidney. The largest calculus is noted measuring approximately 1.1 x 0.9 cm in maximal axial dimensions. No evidence of focal renal lesions. Bladder: The bladder appears unremarkable. Pelvic organs: Postsurgical changes compatible with hysterectomy are observed. Otherwise, no evidence of pelvic masses. Bowel: Esophagus is unremarkable. The stomach is unremarkable. The small bowel is of normal caliber throughout without evidence of wall thickening or obstruction. The appendix is not definitively visualized, however, there is no evidence of periappendiceal fat stranding to suggest appendicitis. Diverticuli are noted throughout the colon. No stenotic lesion or mucosal thickening is noted to suggest diverticulitis. Mesentery/Intraperit oneum: No intraperitoneal free fluid or air is seen. Mesentery is normal in appearance. Lymph nodes: No lymphadenopathy Vasculature: The abdominal aorta is normal in caliber without evidence of aneurysmal dilatation. The venous vasculature appears grossly unremarkable. Abdominal wall: The abdominal wall soft tissues appear unremarkable. Osseous structures: No suspicious osseous lesions. Mild degenerative changes of the lumbar spine are observed. IMPRESSION: 1. No acute abdominopelvic process identified. 2. Nonobstructive left renal nephrolithiasis measuring up to 1.1 cm. 3. Fat-containing posterior diaphragmatic hernias. 4. Posterior right hepatic lobe enhancing structure measuring up to 1.2 cm, which may reflect flash filling hemangioma. Ultrasound may be obtained for further evaluation. 5. Punctate cholelithiasis without evidence of cholecystitis. 6. Diverticulosis without evidence of diverticulitis. 7. Status post hysterectomy. 8. Mild degenerative changes of the thoracolumbar spine. Report Dictated on Electronically Signed By: Ba Linder MD Electronically Signed Date/Time: 01/03/2023 11:33 AM EDT Abdominal pain, known kidney stone [facility] CT CHEST WO IV CONTRASTon CT CHEST WO IV CONTRAST Patient Name: YASH FRANCOIS : 1945 [facility]#: [id number] Exam Date/Time: 12/30/2022 14:39 Procedure: CT CHEST WO IV CONTRAST Ordering Provider: PARKER GIN Reason For Exam: Hemoptysis CT CHEST WITHOUT CONTRAST CLINICAL INDICATION: Hemoptysis Technique: Axial CT images were obtained of the chest. Images were reformatted in coronal and sagittal projections. Dose reduction was employed with automated exposure control. COMPARISON: None FINDINGS: Airway: Tracheobronchial tree remains patent. Lungs: Lungs are clear with no infiltrate or mass. Multiple pulmonary nodules are noted in the lungs bilaterally. For example: In the right upper lung lobe, punctate 2 mm nodule is observed (series 4 axial image 68). In the posterior medial right upper lung lobe, there is a 2 mm nodule (series 4 axial image 99). Calcified granulomas are noted in the lungs. Pleura: No pleural thickening or effusion. Bilateral posterior fat containing diaphragmatic hernias are noted. Heart/Great vessels: Normal heart size with no pericardial effusion. There is mild-moderate coronary artery calcification. The aorta is normal in caliber. The pulmonary arteries normal in caliber. Mediastinum/Cheryl: No enlarged mediastinal, hilar, or axillary lymph nodes. Thyroid: Thyroid is normal in appearance. Esophagus: Esophagus is unremarkable. Visualized Upper Abdomen: Left renal calculus is observed measuring approximately 1.1 x 0.9 cm in maximal axial dimension, incompletely evaluated on current exam due to field constraints. Otherwise, no acute upper abdominal process identified. Chest wall: Unremarkable. Bones: No suspicious osseous lesions identified. Mild degree of scoliosis is observed in the thoracic spine. Mild degenerative changes of the thoracic spine are observed. IMPRESSION: 1. No focal consolidation or mass lesion identified. 2. Punctate 2 mm nodules of the lungs as discussed, of uncertain clinical significance. 3. Bilateral fat-containing diaphragmatic hernias. 4. Nonobstructive left renal calculus measuring up to 1.1 cm. 5. Mild thoracic scoliosis and spondylosis. Report Dictated on Electronically Signed By: Ba Linder MD Electronically Signed Date/Time: 01/03/2023 10:28 AM EDT Hemoptysis [facility] 36on 12-07-2022 36 Screening Colonoscopy (photogrammetry airplane pilot program) Called pt today to schedule colonoscopy. Unable to leave message to call colorectal office at [phone] since voicemail not set up yet. [facility] 36on 12-05-[address] chest has been approved [facility] Basic metabolic 1998 panelon 12-01-2022 Anion gap [Moles/Vol] 4 mmol/L Low [facility] Calcium [Mass/Vol] 9.3 mg/dL 8.6 - 10. 4 mg/dL [facility] Chloride [Moles/Vol] 109 mmol/L 98 - 11 0 mmol/L [facility] CO2 [Moles/Vol] 29 mmol/L 20 - 32 mmol/L [facility] Creatinine [Mass/Vol] 0.57 mg/dL Low 0.60 - 1.00 mg/dL [facility] GFR/1.73 sq M.predicted among non-blacks MDRD (S/P/Bld) [Vol rate/Area] 94 mL/min/{1.73_m2} > OR = 60 mL/min/1.73 m2 [facility] Comment on above: The eGFR is based on the CKD-EPI 2020 equation. To calculate the new eGFR from a previous Creatinine or Cystatin C result, go to https://www.kidney.org/professionals/ kdoqi/gfr%5Fcalculator Glucose [Mass/Vol] 92 mg/dL 65 - 99 mg/dL [facility] Comment on above: Fasting reference interval Interpretation and review of laboratory results Abnormal [facility] Potassium [Moles/Vol] 4.7 mmol/L 3.5 - 5.3 mmol/L [facility] Sodium [Moles/Vol] 142 mmol/L 135 - 146 mmol/L [facility] Urea nitrogen [Mass/Vol] 16 mg/dL 7 - 25 mg/dL [facility] Urea nitrogen/Creatinine [Mass ratio] 28 mg/mg High [facility] ADDENDUMNOTEon 11-30-2022 ADDENDUMNOTE Addended by: SULY PARKER on: 11/30/2022 08:20 PM Modules accepted: Orders [facility] 3611-28-2022 36 Called the number again today for Peer to peer but no one picked up the number. [facility] 36on 11-25-2022 36 Noted. [facility] 36 Attempted to call the number but could not reach the Dr. Garcia. Will attempt again in a later day. [facility] 36 Rx sent. Will do peer to peer for CT chest. [place] [address] Message released to patient as written. yes Patient's further questions if applicable: none Were all questions from office addressed or relayed to the patient from encounter: Yes [place] [address] Attempted to contact the patient but there was no answer and the voicemail box has not been set up yet. [place] [address] Name of caller: Carmen Contact phone number: [phone] Relationship to Patient: daughter Provider: Dr Parker Practice: [facility] Chief Complaint/Reason for Call: Carmen called in regards to the cough medicine Dr Parker was supposed to send to the [facility] pharmacy when pt was seen on 11/16/22. Said they discussed a lot and Dr Parker may have just forgotten and would like for that to be called in and a call back once done so she is updated. Thank you. [facility] [address] [place] [address] Best time of day caller can be reached: any Patient advised that office/PCP has 24-48 business hours to return their call: No [facility] 3611-23-[address] Garcia called from [facility], states that her CT chest has been denied and he would like to do a peer to peer with you. (Dr. Schmitz is on the order due to her being an attending) his number is [phone] [facility] 36on 11-22-2022 36 Pt is scheduled Monday12/30/2022 at 1:[address] chest and CT abdomen NPO 4 hrs prior to test She will also need to have a creatinine level drawn prior to appt Could not leave a voicemail, will try again later [facility] 36on 11-18-2022 36 Already called patient back. [facility] 36 Pt states she missed a call and believes it might have been from you. If so she states she is available all day today to discuss xray results. [facility] Progress Noteon 11-18-2022 Progress Note Called patient regarding CXR. Reviewed CXR with Radiologist who states CXR is inconsequential. Will follow up with CT chest/CT abdomen IV contrast and oral contrast. Discussed plan with attending. [facility] XR Chest 2 Viewson Patient Name: YASH FRANCOIS : 1945 Exam Date/Time: 11/16/2022 16:12 Procedure: XR CHEST 2 VIEWS Ordering Provider: PARKER GIN Reason For Exam: HEMOPTYSIS CHEST (Frontal and lateral) History: Hemoptysis Comparison: None available Findings: Frontal and lateral chest views show interstitial prominence of the lungs with mild hyperaeration and small linear basilar atelectasis. There are no acute infiltrate or congestion. The heart is normal in size. There are atherosclerotic calcifications. There is focal left diaphragm eventration. There is no mediastinal widening or pleural effusion. There is spondylosis, mild kyphosis, shoulder osteoarthritis and remote left clavicular and probably ribs fractures. Partially visualized upper abdomen shows probable left renal calculus. [facility] Mary Ruano MD - 11/18/2022 Patient Name: YASH FRANCOIS : 1945 Exam Date/Time: 11/16/2022 16:12 Procedure: XR CHEST 2 VIEWS Ordering Provider: PARKER GIN Reason For Exam: HEMOPTYSIS CHEST (Frontal and lateral) History: Hemoptysis Comparison: None available Findings: Frontal and lateral chest views show interstitial prominence of the lungs with mild hyperaeration and small linear basilar atelectasis. There are no acute infiltrate or congestion. The heart is normal in size. There are atherosclerotic calcifications. There is focal left diaphragm eventration. There is no mediastinal widening or pleural effusion. There is spondylosis, mild kyphosis, shoulder osteoarthritis and remote left clavicular and probably ribs fractures. Partially visualized upper abdomen shows probable left renal calculus. IMPRESSION: Chronic findings. No acute pulmonary process. In view of the clinical history, consider CT which is more sensitive for pulmonary evaluation. Left renal calculus. Report Dictated on Electronically Signed By: Mary Ruano Electronically Signed Date/Time: 11/18/2022 2:52 PM EDT [facility] XR Chest 2 ViewsOrdered By: Mary Ruano on 11-18-2022 [facility] Work Phone: Office Visiton 11-16-2022 Follow-up visit [id number] Yash Francois 1945 F Date Provider Department Center 11/16/2022 [id number] CONDE [facility] FAMILY P None Chart Close Cosign Accepted by: SONNY SCHMITZ[NFLICKINGER] Chart Close Cosign Accepted on: MonNov 29, 2022 8:45 PM No family history on file Level of Service:04049 RI OFFICE/OUTPATIENT ESTABLISHED LOW MDM 20-29 MIN Reason for Visit and Comments: Follow-up [[id number]] [facility] Progress Noteon 11-16-2022 Progress Note INDIRECT SUPERVISION THIS SERVICE IS TO BE [...] with the resident's assessment and treatment plan. [facility] Progress Note Pt asked if they have been to specialist,been in ER /hospitalized or had testing since last visit. ENT [facility] Progress Note [facility] [address] [facility] [address] Dept: [phone] Dept Loc: [phone] Visit type: Established Reason for Visit: Follow-up Assessment and Plan Yash was seen today for follow-up. Diagnoses and all orders for this visit: Hemoptysis (Primary) - XR chest 2 views; Future Colon cancer screening - [facility] Gastroenterology; Future Concern for possible underlying malignancy. Will get CXR. Ok to call Daughter regarding result ([phone]). May need further work up with CT [...] Multiple Vitamins-Minerals (ZINC PO) Take by mouth. zfuxejwb-ghtnqwoek-v ydrocortisone (Cortisporin) 3.5-21271-3 otic suspension No facility-administere d medications prior to visit. Patient Active Problem [...] COLONOSCOPY EXTRACORPOREAL SHOCK WAVE LITHOTRIPSY Left 07/06/2022 cystoscopy,retrograd e pyelogram- dr. Joya HYSTERECTOMY KNEE ARTHROPLASTY Right [...] Objective BP 127/68 Pulse 73 Temp 36.4 ?C (97.5 ?F) Ht 5' 4.5 (1.638 m) Wt 158 lb (71.7 kg) BMI 26.70 kg/m? Wt Readings from Last 3 Encounters: 11/16/22 [...] and Summarized Labs: Suly Parker MD PGY-3 Media Production Support Manager 11/17/2022 8:33 PM [facility] Progress Note Patient was able to ambulate safely to the examination room. Provider was not notified of possible fall risk [facility] XR Chest 2 Viewson 3 Radiology Study observation (narrative) [facility] 36on 10-28-2022 36 Noted. Thanks. [facility] 36on 10-27-2022 36 Name of caller: yash Contact phone number: [phone] Relationship to Patient: patient Provider: Dr. Bernardo Practice: [facility] Chief Complaint/Reason for Call: pt called in states pcp wanted info on emmy ent , it is [facility], and their phone is [phone] Best time of day caller can be reached: AM Patient advised that office/PCP has 24-48 business hours to return their call: Yes [facility] ADDENDUMNOTEon 10-25-2022 ADDENDUMNOTE Addended by: SULY PARKER. on: 10/27/2022 08:11 AM Modules accepted: Level of Service [facility] Office Visiton 10-25-2022 Follow-up visit [id number] Yash Francois 1945 F Date Provider Department Center 10/25/2022 [id number]-KHFOSULY PARKER [facility] FAMILY P None Chart Close Cosign Accepted by: AALIYAH ORTIZ[523] Chart Close Cosign Accepted on: MonOctober 27, 2022 7:56 AM No family history on file Level of Service:12755 RI OFFICE/OUTPATIENT ESTABLISHED LOW MDM 20-29 MIN Reason for Visit and Comments: Medicare Annual Wellness Visit Initial [676] [facility] Progress Noteon 10-25-2022 Progress Note Pt asked if they have been to specialist,been in ER /hospitalized or had testing since last visit. Yes- kidney stone [facility] Progress Note [facility] [address] [facility] [address] Dept: [phone] Dept Chief Complaint: Yash Francois is an 77 y.o. female here for an annual wellness visit. Assessment/Plan : Problem List Items Addressed This Visit None I have reviewed and reconciled the medication list with the patient today. Current Outpatient Medications Medication Sig Dispense Refill COLLAGEN PO Take by mouth. Cyanocobalamin (B-12 PO) Take by mouth. ferrous sulfate 325 (65 Fe) MG tablet Take 325 mg by mouth daily (with breakfast). ibandronate (Boniva) 150 MG tablet Take 1 tablet (150 mg) by mouth every 30 (thirty) days. 5 tablet 0 MAGNESIUM PO Take by mouth. metoprolol succinate XL (Toprol-XL) 50 MG 24 hr tablet Take 1 tablet (50 mg) by mouth daily. Do not crush or chew. Do not start before July 23, 2022. 30 tablet 11 Multiple Vitamins-Minerals (ZINC PO) Take by mouth. No current facility-administere d medications for this visit. The following health maintenance schedule was reviewed with the patient and provided in printed form in the after visit summary: Health Maintenance Topic Date Due Hepatitis B Vaccines (1 of 3 - 3-dose series) Never done Bone Density Scan Never done COVID-19 Vaccine (1) Never done Pneumococcal Vaccine: 65+ Years (1 - PCV) Never done Hepatitis C Screening Never done Diabetes Screening Never done DTaP/Tdap/Td Vaccines (1 - Tdap) Never done Zoster Vaccines (1 of 2) Never done Influenza Vaccine (Season Ended) 2023 Echocardiogram 07/19/2023 Creatinine Level 07/23/2023 Potassium Level 07/23/2023 Depression Screening 07/29/2023 HIB Vaccines Aged Out IPV Vaccines Aged Out Hepatitis A Vaccines Aged Out Meningococcal Vaccine Aged Out Rotavirus Vaccines Aged Out HPV Vaccines Aged Out List of current healthcare providers: Patient Care Team: [facility] as PCP - General João Villa MD as Surgeon (Urology) Julianne Joya DO as Surgeon (Urology) No orders of the defined types were placed in this encounter. Subjective : Review of Systems Physical Exam Vitals reviewed. Constitutional: Appearance: Normal appearance. HENT: Head: Normocephalic. Right Ear: There is impacted cerumen. Left Ear: There is impacted cerumen. Nose: Nose normal. Eyes: Extraocular Movements: Extraocular movements intact. Pupils: Pupils are equal, round, and reactive to light. Cardiovascular: Rate and Rhythm: Normal rate and regular rhythm. Pulmonary: Effort: Pulmonary effort is normal. Breath sounds: Normal breath sounds. Abdominal: General: Bowel sounds are normal. Palpations: Abdomen is soft. Musculoskeletal: Right lower leg: No edema. Left lower leg: No edema. Neurological: Mental Status: She is alert. Health Risk Assessment: General In general, how would you say your health is?: Fair In the past 7 days, have you experienced any of the following: New or Increased Pain, New or Increased Fatigue, Loneliness, Social Isolation, Stress or Anger?: (!) Yes Select all that apply: New or Increased Fatigue, Stress Do you get the social and emotional suppport you need?: Yes Interventions: N/A Health Habits / Nutrition On average, how many days per week do you engage in moderate to strenous exercise (like a brisk walk)?: 7 days On average, how man minutes do you engage in exercise at this level?: 20 min Have you lost any weight without trying in the past 3 months? : No Have you seen the dentist within the past year?: Appointment is scheduled Interventions: N/A Hearing / Vision Do you or your family notice any trouble with your hearing that hasn't been managed with hearing aids?: (!) Yes Do you have difficulty driving, watching TV, or doing any of your daily activities because of your eyesight?: No Have you had an eye exam within the past year?: (!) No (for financial reasons) Hearing Screening - Comments:: Saw an ending machine operator Vision Screening - Comments:: Wears readers Interventions: N/A Safety Do you have a working smoke detector?: Yes Do you have any tripping hazards - loose or unsecured carpets or rugs?: (!) Yes Do you have any tripping hazards - clutter in doorways, halls, or stairs?: No Do you have either shower bars, grab bars, non-slip mats or non-slip surfaces in your shower or bathtub? : Yes Do all your stairways have a railing or banister? : Yes Do you fasten your seatbelt when you are in a car?: Yes Interventions: ------- ADL In the past 7 days, did you need help from others to perform any of the following everyday activities: Eating, dressing, grooming,bathing, toileting, or walking / balance? : No In the past 7 days, did you need help from others to take care of any of the following: laundry, (more content not included)... Normal [facility] Progress Note [facility] [address] [facility] [address] Dept: [phone] Dept Chief Complaint: Yash Francois is an 77 y.o. female here for an annual wellness visit. Assessment/Plan : Problem List Items Addressed This Visit None Visit Diagnoses Routine general medical examination at health care facility - Primary Chronic fatigue Will get metabolic work up. Encouraged to continue exercising. Relevant Orders Vitamin D 25 hydroxy (Completed) Vitamin B12 (Completed) Comprehensive metabolic panel (Completed) Normocytic anemia Relevant Orders CBC auto differential (Completed) Comprehensive metabolic panel (Completed) Ferritin (Completed) Iron and TIBC (Completed) Osteoporosis of vertebra Chronically on Boniva chronically. ~ over 10 years. Will stop now. Reassess DEXA in 2-3 years. Paroxysmal A-fib (CMS/HCC) (HCC) SR today. Hearing aid fitting or adjustment FOllows with ENT> I have reviewed and reconciled the medication list with the patient today. Current Outpatient Medications Medication Sig Dispense Refill COLLAGEN PO Take by mouth. Cyanocobalamin (B-12 PO) Take by mouth. ferrous sulfate 325 (65 Fe) MG tablet Take 325 mg by mouth daily (with breakfast). MAGNESIUM PO Take by mouth. Multiple Vitamins-Minerals (ZINC PO) Take by mouth. No current facility-administere d medications for this visit. The following health maintenance schedule was reviewed with the patient and provided in printed form in the after visit summary: Health Maintenance Topic Date Due Hepatitis B Vaccines (1 of 3 - 3-dose series) Never done Bone Density Scan Never done COVID-19 Vaccine (1) Never done Pneumococcal Vaccine: 65+ Years (1 - PCV) Never done Hepatitis C Screening Never done Diabetes Screening Never done DTaP/Tdap/Td Vaccines (1 - Tdap) Never done Zoster Vaccines (1 of 2) Never done Influenza Vaccine (Season Ended) 2023 Echocardiogram 07/19/2023 Depression Screening 07/29/2023 Creatinine Level 10/26/2023 Potassium Level 10/26/2023 HIB Vaccines Aged Out IPV Vaccines Aged Out Hepatitis A Vaccines Aged Out Meningococcal Vaccine Aged Out Rotavirus Vaccines Aged Out HPV Vaccines Aged Out List of current healthcare providers: Patient Care Team: [facility] as PCP - General João Villa MD as Surgeon (Urology) Julianne Joya DO as Surgeon (Urology) Orders Placed This Encounter Procedures Vitamin D 25 hydroxy Standing Status: Future Number of Occurrences: 1 Standing Expiration Date: 10/26/2023 Vitamin B12 Standing Status: Future Number of Occurrences: 1 Standing Expiration Date: 10/26/2023 CBC auto differential Standing Status: Future Number of Occurrences: 1 Standing Expiration Date: 10/26/2023 Comprehensive metabolic panel Standing Status: Future Number of Occurrences: 1 Standing Expiration Date: 10/26/2023 Ferritin Standing Status: Future Number of Occurrences: 1 Standing Expiration Date: 10/26/2023 Iron and TIBC Standing Status: Future Number of Occurrences: 1 Standing Expiration Date: 10/26/2023 Subjective : Review of Systems Physical Exam Health Risk Assessment: General In general, how would you say your health is?: Fair In the past 7 days, have you experienced any of the following: New or Increased Pain, New or Increased Fatigue, Loneliness, Social Isolation, Stress or Anger?: (!) Yes Select all that apply: New or Increased Fatigue, Stress Do you get the social and emotional suppport you need?: Yes Interventions: Health Habits / Nutrition On average, how many days per week do you engage in moderate to strenous exercise (like a brisk walk)?: 7 days On average, how man minutes do you engage in exercise at this level?: 20 min Have you lost any weight without trying in the past 3 months? : No Have you seen the dentist within the past year?: Appointment is scheduled Interventions: Hearing / Vision Do you or your family notice any trouble with your hearing that hasn't been managed with hearing aids?: (!) Yes Do you have difficulty driving, watching TV, or doing any of your daily activities because of your eyesight?: No Have you had an eye exam within the past year?: (!) No (for financial reasons) Hearing Screening - Comments:: Saw an ending machine operator Vision Screening - Comments:: Wears readers Interventions: Safety Do you have a working smoke detector?: Yes Do you have any tripping hazards - loose or unsecured carpets or rugs?: (!) Yes Do you have any tripping hazards - clutter in doorways, halls, or stairs?: No Do you have either shower bars, grab bars, non-slip mats or non-slip surfaces in your shower or bathtub? : Yes Do all your stairways have a railing or banister? : Yes Do you fasten your seatbelt when you are in a car?: Yes Interventions: ADL In the past 7 days, did you need help from others to per (more content not included)... [facility] Progress Note INDIRECT SUPERVISION THIS SERVICE IS TO BE [...] with the resident's assessment and treatment plan. -Aaliyah Ortiz MD, [facility] Family Medicine [facility] Progress Note Patient was able to ambulate safely to the examination room. Provider was not notified of possible fall risk [place] [id number] 36 Done! [facility] 36 Yes, I meant if you could please cancel the request for the echo. Thank you. [place] [id number] 36 Pt's order for TRANSTHORACIC ECHOCARDIOGRAM (TTE) was cancelled. Could you cancel the RQ? - [facility] Scheduling [address] 09-19-2022 36 Scheduled patient for 10/25/22. [address] 09-15-2022 36 Called patient to reschedule her 10/26/[address] Gavin due to him being out of the office. Patient stated that she will check her schedule at work tonight and call us back tomorrow. Patient asked for refill on Boniva. Refill request sent to Dr. Bernardo. Normal [facility] No Panel Informationon 08-16 There is no interpretation needed for this exam. IMAGING ECG 12 lead - CLINIC PERFORM EDon 08-06-2022 Sinus Rhythm Voltage criteria for LVH (R(I)+S(III) exceeds 2.50 mV) -Voltage criteria w/o ST/T abnormality may be normal. -Old anteroseptal infarct. ABNORMAL [facility] ECG 12 lead - CLINIC PERFORM EDOrdered By: Reese Winslow on 08-06-2022 [facility] Work Phone: Basic metabolic 1998 panelon 07-23-2022 Anion gap [Moles/Vol] 3 mmol/L 3 - 13 mmol/L [facility] Calcium [Mass/Vol] 9.0 mg/dL 8.4 - 10. 4 mg/dL [facility] Chloride [Moles/Vol] 113 mmol/L High 98 - 10 7 mmol/L [facility] CO2 [Moles/Vol] 24 mmol/L 22 - 30 mmol/L [facility] Creatinine [Mass/Vol] 0.48 mg/dL Low 0.52 - 1.04 mg/dL [facility] GFR/1.73 sq M.predicted MDRD (S/P/Bld) [Vol rate/Area] - PINF [facility] Comment on above: Calculation based on the Chronic Kidney Disease Epidemiology Collaboration (CKD-EPI) equation refit without adjustment for race Glucose [Mass/Vol] 100 mg/dL 70 - 100 mg/dL [facility] Interpretation and review of laboratory results Abnormal [facility] th Potassium [Moles/Vol] 3.4 mmol/L Low 3.5 - 5.1 mmol/L [facility] Sodium [Moles/Vol] 141 mmol/L 135 - 145 mmol/L [facility] Urea nitrogen [Mass/Vol] 8 mg/dL 7 - 17 mg/dL [facility] CBC panel Auto (Bld)on 07-23 Erythrocyte distribution width (RBC) [Ratio] 14.2 % 11.5 - 14.5 % [facility] Hematocrit (Bld) [Volume fraction] 32.7 % Low 35.0 - 47.0 % [facility] Hemoglobin (Bld) [Mass/Vol] 10.8 g/dL Low 11.7 - 16.0 g/dL [facility] Interpretation and review of laboratory results Abnormal [facility] MCH (RBC) [Entitic mass] 27.9 pg 26. 0 - 34.0 pg [facility] MCHC (RBC) [Mass/Vol] 33.1 % 32.0 - 36.0 % [facility] MCV (RBC) [Entitic vol] 84.1 fL 80.0 - 98.0 fL [facility] Platelet mean volume (Bld) [Entitic vol] 7.9 fL 7.4 - 12.4 fL [facility] Platelets (Bld) [#/Vol] 177 10*3/uL 140 - 440 10*3/uL [facility] RBC (Bld) [#/Vol] 3.88 10*6/uL 3.8 - 5.20 10*6/uL [facility] WBC (Bld) [#/Vol] 5.8 10*3/uL 3.6 - 10.7 10*3/uL [facility] Basic metabolic 1998 panelon 07-22-2022 Anion gap [Moles/Vol] 0 mmol/L Low 3 - 13 mmol/L [facility] Calcium [Mass/Vol] 8.2 mg/dL Low 8.4 - 10. 4 mg/dL [facility] Chloride [Moles/Vol] 116 mmol/L High 98 - 10 7 mmol/L [facility] CO2 [Moles/Vol] 24 mmol/L 22 - 30 mmol/L [facility] Creatinine [Mass/Vol] 0.50 mg/dL Low 0.52 - 1.04 mg/dL [facility] GFR/1.73 sq M.predicted MDRD (S/P/Bld) [Vol rate/Area] - PINF [facility] Comment on above: Calculation based on the Chronic Kidney Disease Epidemiology Collaboration (CKD-EPI) equation refit without adjustment for race Glucose [Mass/Vol] 101 mg/dL High 70 - 100 mg/dL [facility] Interpretation and review of laboratory results Abnormal [facility] Potassium [Moles/Vol] 3.6 mmol/L 3.5 - 5.1 mmol/L [facility] Sodium [Moles/Vol] 140 mmol/L 135 - 145 mmol/L [facility] Urea nitrogen [Mass/Vol] 9 mg/dL 7 - 17 mg/dL [facility] CBC panel Auto (Bld)Ordered By: Gonzalez Card on 07-22-2022 Erythrocyte distribution width (RBC) [Ratio] 14.3 % 11.5 - 14.5 % [facility] Hematocrit (Bld) [Volume fraction] 30.3 % Low 35.0 - 47.0 % [facility] Hemoglobin (Bld) [Mass/Vol] 10.1 g/dL Low 11.7 - 16.0 g/dL [facility] Interpretation and review of laboratory results Abnormal [facility] MCH (RBC) [Entitic mass] 27.9 pg 26. 0 - 34.0 pg [facility] MCHC (RBC) [Mass/Vol] 33.4 % 32.0 - 36.0 % [facility] MCV (RBC) [Entitic vol] 83.6 fL 80.0 - 98.0 fL [facility] Platelet mean volume (Bld) [Entitic vol] 7.7 fL 7.4 - 12.4 fL [facility] Platelets (Bld) [#/Vol] 144 10*3/uL 140 - 440 10*3/uL [facility] RBC (Bld) [#/Vol] 3.62 10*6/uL Low 3.8 - 5.20 10*6/uL [facility] WBC (Bld) [#/Vol] 5.1 10*3/uL 3.6 - 10.7 10*3/uL [facility] Basic metabolic 1998 panelon 07-21-2022 Anion gap [Moles/Vol] 2 mmol/L Low 3 - 13 mmol/L [facility] Calcium [Mass/Vol] 7.8 mg/dL Low 8.4 - 10. 4 mg/dL [facility] Chloride [Moles/Vol] 114 mmol/L High 98 - 10 7 mmol/L [facility] CO2 [Moles/Vol] 22 mmol/L 22 - 30 mmol/L [facility] Creatinine [Mass/Vol] 0.49 mg/dL Low 0.52 - 1.04 mg/dL [facility] GFR/1.73 sq M.predicted MDRD (S/P/Bld) [Vol rate/Area] - PINF [facility] Comment on above: Calculation based on the Chronic Kidney Disease Epidemiology Collaboration (CKD-EPI) equation refit without adjustment for race Glucose [Mass/Vol] 97 mg/dL 70 - 100 mg/dL [facility] Interpretation and review of laboratory results Abnormal [facility] Potassium [Moles/Vol] 3.3 mmol/L Low 3.5 - 5.1 mmol/L [facility] Sodium [Moles/Vol] 139 mmol/L 135 - 145 mmol/L [facility] Urea nitrogen [Mass/Vol] 10 mg/dL 7 - 17 mg/dL [facility] CBC panel Auto (Bld)Ordered By: Beulah Salazar on 07-21-2022 Erythrocyte distribution width (RBC) [Ratio] 14.0 % 11.5 - 14.5 % [facility] Hematocrit (Bld) [Volume fraction] 29.6 % Low 35.0 - 47.0 % [facility] Hemoglobin (Bld) [Mass/Vol] 9.8 g/dL Low 11.7 - 16.0 g/dL [facility] Interpretation and review of laboratory results Abnormal [facility] MCH (RBC) [Entitic mass] 27.8 pg 26. 0 - 34.0 pg [facility] MCHC (RBC) [Mass/Vol] 33.1 % 32.0 - 36.0 % [facility] MCV (RBC) [Entitic vol] 84.1 fL 80.0 - 98.0 fL [facility] Platelet mean volume (Bld) [Entitic vol] 8.3 fL 7.4 - 12.4 fL [facility] Platelets (Bld) [#/Vol] 135 10*3/uL Low 140 - 440 10*3/uL [facility] RBC (Bld) [#/Vol] 3.52 10*6/uL Low 3.8 - 5.20 10*6/uL [facility] WBC (Bld) [#/Vol] 5.0 10*3/uL 3.6 - 10.7 10*3/uL [facility] No Panel InformationOrdered By: Jared Vickers on 07-21-2022 P [place] 28 degrees [facility] Work Phone: RI Interval 184 ms [facility] Work Phone: QRS [place] -6 degrees [facility] Work Phone: QRSD Interval 112 ms [facility] [employer] Work Phone: QT Interval 396 ms [facility] Work Phone: QTC Interval 443 ms [facility] Work Phone: T Wave [place] 79 degrees [facility] Work Phone: [facility] Work Phone: No Panel Informationon 07-21 SINUS RHYTHM PROBABLE LEFT ATRIAL ABNORMALITY LVH WITH IVCD AND SECONDARY REPOL ABNRM CONSIDER ANTEROSEPTAL INFARCT Electronically Signed On 07-21-2022 10:10:18 EST by Jared Vickers CV Jared Moreno MD - 07/21/2022 IMPRESSION: SINUS RHYTHM PROBABLE LEFT ATRIAL ABNORMALITY LVH WITH IVCD AND SECONDARY REPOL ABNRM CONSIDER ANTEROSEPTAL INFARCT Electronically Signed On 07-21-2022 10:10:18 EST by Jared Vickers [facility] Vital signsOrdered By: Grover Vickers on 07-21-2022 Heart rate 75 /min bpm [facility] Work Phone: Bacteria identified Cx Nom ( Bld)on 07-20-2022 Interpretation and review of laboratory results Abnormal [facility] Blood Collection Site: Left Antecubital [facility] Bacteria identified Cx Nom ( Bld)Ordered By: Sav Estrada on 07-20-2022 Blood Collection Site: Right Antecital [facility] Bacteria identified Cx Nom ( U)Ordered By: Rekha Jimenez on 07-20-2022 Interpretation and review of laboratory results Abnormal [facility] Basic metabolic 1998 panelon 07-20-2022 Anion gap [Moles/Vol] 4 mmol/L 3 - 13 mmol/L [facility] Calcium [Mass/Vol] 8.2 mg/dL Low 8.4 - 10. 4 mg/dL [facility] Chloride [Moles/Vol] 116 mmol/L High 98 - 10 7 mmol/L [facility] CO2 [Moles/Vol] 19 mmol/L Low 22 - 30 mmol/L [facility] Creatinine [Mass/Vol] 0.51 mg/dL Low 0.52 - 1.04 mg/dL [facility] GFR/1.73 sq M.predicted MDRD (S/P/Bld) [Vol rate/Area] - PINF [facility] Comment on above: Calculation based on the Chronic Kidney Disease Epidemiology Collaboration (CKD-EPI) equation refit without adjustment for race Glucose [Mass/Vol] 98 mg/dL 70 - 100 mg/dL [facility] Interpretation and review of laboratory results Abnormal [facility] Potassium [Moles/Vol] 3.7 mmol/L 3.5 - 5.1 mmol/L [facility] Sodium [Moles/Vol] 139 mmol/L 135 - 145 mmol/L [facility] Urea nitrogen [Mass/Vol] 11 mg/dL 7 - 17 mg/dL [facility] CBC W Auto Differential pane l (Bld)on 07-20-2022 Basophils (Bld) [#/Vol] 0.1 10*3/uL 0.0 - 0.2 10*3/uL [facility] Basophils/100 WBC (Bld) 1.2 % 0.0 - 2.0 % [facility] Eosinophils (Bld) [#/Vol] 0.3 10*3/uL 0. 0 - 0.5 10*3/uL [facility] Eosinophils/100 WBC (Bld) 4.3 % 1.0 - 6.0 % [facility] Erythrocyte distribution width (RBC) [Ratio] 14.2 % 11.5 - 14.5 % [facility] Hematocrit (Bld) [Volume fraction] 30.5 % Low 35.0 - 47.0 % [facility] Hemoglobin (Bld) [Mass/Vol] 10.2 g/dL Low 11.7 - 16.0 g/dL [facility] Interpretation and review of laboratory results Abnormal [facility] th Lymphocytes (Bld) [#/Vol] 1.3 10*3/uL 1. 0 - 4.3 10*3/uL [facility] Lymphocytes/100 WBC (Bld) 21.3 % 20 .0 - 40.0 % [facility] MCH (RBC) [Entitic mass] 28.2 pg 26. 0 - 34.0 pg [facility] MCHC (RBC) [Mass/Vol] 33.5 % 32.0 - 36.0 % [facility] MCV (RBC) [Entitic vol] 84.1 fL 80.0 - 98.0 fL [facility] Monocytes (Bld) [#/Vol] 0.5 10*3/uL 0.0 - 0.8 10*3/uL [facility] Monocytes/100 WBC (Bld) 7.9 % 2.0 - 10.0 % [facility] Neutrophils (Bld) [#/Vol] 3.9 10*3/uL 1. 8 - 7.0 10*3/uL [facility] Neutrophils/100 WBC (Bld) 65.3 % 40 .0 - 80.0 % [facility] Nucleated RBC/100 WBC (Bld) [Ratio] 0.0 % [facility] Platelet mean volume (Bld) [Entitic vol] 8.3 fL 7.4 - 12.4 fL [facility] Platelets (Bld) [#/Vol] 126 10*3/uL Low 140 - 440 10*3/uL [facility] RBC (Bld) [#/Vol] 3.63 10*6/uL Low 3.8 - 5.20 10*6/uL [facility] WBC (Bld) [#/Vol] 6.0 10*3/uL 3.6 - 10.7 10*3/uL [facility] CT Abdomen WO contraston 1. Left ureteral stent placement with mild hydronephrosis. Left-sided urinary calculi including multiple renal calculi, a UPJ calculus and two punctate distal ureteral calculi. 2. Nonobstructive punctate right renal calculus. 3. Colonic diverticulosis. Report Dictated on Electronically Signed By: Luis Antonio Bcaa Electronically Signed Date/Time: 07/20/2022 3:17 PM [facility] Patient Name: YASH FRANCOIS : 1945 Exam Date/Time: 07/20/2022 13:12 Procedure: CT ABDOMEN PELVIS WO IV CONTRAST Ordering Provider: CABELLO ROBIN Reason For Exam: left kidney stone CT ABDOMEN AND PELVIS WITHOUT IV CONTRAST CLINICAL INDICATION: Renal calculus TECHNIQUE: Multidetector spiral transaxial sequence was performed through the abdomen and pelvis without intravenous contrast. Images were reconstructed at 3 mm slice width at 3 mm interval. Dose reduction was employed with automated exposure control. COMPARISON: 06/05/2022 FINDINGS: Exam quality: This examination is limited [...] calculus. Free fluid: Trace free pelvic fluid. Retroperitoneal/mese nteric lymphadenopathy: None. Bowel: Normal caliber bowel loops. [...] change of the visualized spine is noted. [facility] Luis Antonio Baca MD - 07/20/2022 Patient Name: YASH FRANCOIS : 1945 Exam Date/Time: 07/20/2022 13:12 Procedure: CT ABDOMEN PELVIS WO IV CONTRAST Ordering Provider: CABELLO ROBIN Reason For Exam: left kidney stone CT ABDOMEN AND PELVIS WITHOUT IV CONTRAST CLINICAL INDICATION: Renal calculus TECHNIQUE: Multidetector spiral transaxial sequence was performed through the abdomen and pelvis without intravenous contrast. Images were reconstructed at 3 mm slice width at 3 mm interval. Dose reduction was employed with automated exposure control. COMPARISON: 06/05/2022 FINDINGS: Exam quality: This examination is limited [...] calculus. Free fluid: Trace free pelvic fluid. Retroperitoneal/mese nteric lymphadenopathy: None. Bowel: Normal caliber bowel loops. [...] punctate right renal calculus. 3. Colonic diverticulosis. Report Dictated on Electronically Signed By: Luis Antonio Baca Electronically Signed Date/Time: 07/20/2022 3:17 PM EST [facility] Radiology Study observation (narrative) [facility] alth CT Abdomen WO contrastOrdere d By: Luis Antonio Baca on 07-20-2022 [facility] Work Phone: Laboratory - Microbiology an d Antimicrobial susceptibilityOrdered By: Rekha Jimenez on 07-20-2022 Bacteria identified Cx Nom (U) Normal urogenital michael present [facility] Bacteria identified Cx Nom (U) >100,000 CFU/mL Proteus mirabilis Abnormal [facility] Laboratory - Microbiology an d Antimicrobial susceptibilityon 07-20-2022 Bacteria identified Cx Nom (Bld) Proteus mirabilis Critically abnormal [facility] Comment on above: For identification a nd/or sensitivity, refer to culture collected on: 07/17/2022 at 2116 ([id number]). This is an edited result. Previous organism was Gram-negative bacilli on 07/18/2022 at 1417 EST. No Panel InformationOrdered By: Iwona Bautista on 07-20-2022 P [place] 30 degrees [facility] Work Phone: RI Interval 172 ms [facility] Work [facility]: QRS [place] 8 degrees [facility] Work Phone: QRSD Interval 106 ms [facility] Work Phone: QT Interval 356 ms [facility] Work Phone: QTC Interval 441 ms [facility] Work Phone: T Wave [place] 136 degrees [facility] Work Phone: [employer] Work Phone: No Panel Informationon 07-20 SINUS RHYTHM MULTIPLE ATRIAL PREMATURE COMPLEXES PROBABLE LEFT ATRIAL ABNORMALITY CONSIDER ANTEROSEPTAL INFARCT ABNORMAL T, CONSIDER ISCHEMIA, LATERAL LEADS Compared to ECG 07/19/2022 01:16:59 Electronically Signed On 07-20-2022 7:20:16 EST by Iwona Bautista CV Iwona Becker MD - 07/20/2022 IMPRESSION: SINUS RHYTHM MULTIPLE ATRIAL PREMATURE COMPLEXES PROBABLE LEFT ATRIAL ABNORMALITY CONSIDER ANTEROSEPTAL INFARCT ABNORMAL T, CONSIDER ISCHEMIA, LATERAL LEADS Compared to ECG 07/19/2022 01:16:59 Electronically Signed On 07-20-2022 7:20:16 EST by Iwona Bautista [facility] Vital signsOrdered By: Michael Bautista on 07-20-2022 Heart rate 92 /min bpm [facility] Work Phone: Bacteria identified Cx Nom ( U)Ordered By: Autumn Sullivan on 07-19-2022 Interpretation and review of laboratory results Normal [facility] Basic metabolic 1998 panelon 07-19-2022 Anion gap [Moles/Vol] 0 mmol/L Low 3 - 13 mmol/L [facility] Calcium [Mass/Vol] 8.1 mg/dL Low 8.4 - 10. 4 mg/dL [facility] Chloride [Moles/Vol] 113 mmol/L High 98 - 10 7 mmol/L [facility] CO2 [Moles/Vol] 25 mmol/L 22 - 30 mmol/L [facility] Creatinine [Mass/Vol] 0.63 mg/dL 0.52 - 1.04 mg/dL [facility] GFR/1.73 sq M.predicted MDRD (S/P/Bld) [Vol rate/Area] [facility] Comment on above: Calculation based on the Chronic Kidney Disease Epidemiology Collaboration (CKD-EPI) equation refit without adjustment for race Glucose [Mass/Vol] 95 mg/dL 70 - 100 mg/dL [facility] Interpretation and review of laboratory results Abnormal [facility] Potassium [Moles/Vol] 3.6 mmol/L 3.5 - 5.1 mmol/L [facility] Sodium [Moles/Vol] 139 mmol/L 135 - 145 mmol/L [facility] Urea nitrogen [Mass/Vol] 15 mg/dL 7 - 17 mg/dL [facility] Anion gap [Moles/Vol] 1 mmol/L Low 3 - 13 mmol/L [facility] Calcium [Mass/Vol] 7.6 mg/dL Low 8.4 - 10. 4 mg/dL [facility] Chloride [Moles/Vol] 112 mmol/L High 98 - 10 7 mmol/L [facility] CO2 [Moles/Vol] 25 mmol/L 22 - 30 mmol/L [facility] Creatinine [Mass/Vol] 0.69 mg/dL 0.52 - 1.04 mg/dL [facility] GFR/1.73 sq M.predicted MDRD (S/P/Bld) [Vol rate/Area] [facility] Comment on above: Calculation based on the Chronic Kidney Disease Epidemiology Collaboration (CKD-EPI) equation refit without adjustment for race Glucose [Mass/Vol] 113 mg/dL High 70 - 100 mg/dL [facility] Interpretation and review of laboratory results Abnormal [facility] Potassium [Moles/Vol] 3.3 mmol/L Low 3.5 - 5.1 mmol/L [facility] Sodium [Moles/Vol] 138 mmol/L 135 - 145 mmol/L [facility] Urea nitrogen [Mass/Vol] 17 mg/dL 7 - 17 mg/dL [facility] Anion gap [Moles/Vol] 2 mmol/L Low 3 - 13 mmol/L [facility] Calcium [Mass/Vol] 7.9 mg/dL Low 8.4 - 10. 4 mg/dL [facility] Chloride [Moles/Vol] 114 mmol/L High 98 - 10 7 mmol/L [facility] CO2 [Moles/Vol] 20 mmol/L Low 22 - 30 mmol/L [facility] Creatinine [Mass/Vol] 0.68 mg/dL 0.52 - 1.04 mg/dL [facility] GFR/1.73 sq M.predicted MDRD (S/P/Bld) [Vol rate/Area] - PINF [facility] Comment on above: Calculation based on the Chronic Kidney Disease Epidemiology Collaboration (CKD-EPI) equation refit without adjustment for race Glucose [Mass/Vol] 121 mg/dL High 70 - 100 mg/dL [facility] Interpretation and review of laboratory results Abnormal [facility] Potassium [Moles/Vol] 3.4 mmol/L Low 3.5 - 5.1 mmol/L [facility] Sodium [Moles/Vol] 136 mmol/L 135 - 145 mmol/L [facility] Urea nitrogen [Mass/Vol] 17 mg/dL 7 - 17 mg/dL [facility] CBC W Auto Differential pane l (Bld)on 07-19-2022 Basophils (Bld) [#/Vol] 0.1 10*3/uL 0.0 - 0.2 10*3/uL [facility] Basophils/100 WBC (Bld) 0.7 % 0.0 - 2.0 % [facility] Eosinophils (Bld) [#/Vol] 0.1 10*3/uL 0. 0 - 0.5 10*3/uL [facility] Eosinophils/100 WBC (Bld) 1.1 % 1.0 - 6.0 % [facility] Erythrocyte distribution width (RBC) [Ratio] 14.4 % 11.5 - 14.5 % [facility] Hematocrit (Bld) [Volume fraction] 31.8 % Low 35.0 - 47.0 % [facility] Hemoglobin (Bld) [Mass/Vol] 10.4 g/dL Low 11.7 - 16.0 g/dL [facility] Interpretation and review of laboratory results Abnormal [facility] th Lymphocytes (Bld) [#/Vol] 0.7 10*3/uL Low 1. 0 - 4.3 10*3/uL [facility] Lymphocytes/100 WBC (Bld) 9.4 % Low 20 .0 - 40.0 % [facility] MCH (RBC) [Entitic mass] 27.6 pg 26. 0 - 34.0 pg [facility] MCHC (RBC) [Mass/Vol] 32.7 % 32.0 - 36.0 % [facility] MCV (RBC) [Entitic vol] 84.5 fL 80.0 - 98.0 fL [facility] Monocytes (Bld) [#/Vol] 0.4 10*3/uL 0.0 - 0.8 10*3/uL [facility] Monocytes/100 WBC (Bld) 5.7 % 2.0 - 10.0 % [facility] Neutrophils (Bld) [#/Vol] 6.2 10*3/uL 1. 8 - 7.0 10*3/uL [facility] Neutrophils/100 WBC (Bld) 83.1 % High 40 .0 - 80.0 % [facility] Nucleated RBC/100 WBC (Bld) [Ratio] 0.0 % [facility] Platelet mean volume (Bld) [Entitic vol] 7.8 fL 7.4 - 12.4 fL [facility] Platelets (Bld) [#/Vol] 116 10*3/uL Low 140 - 440 10*3/uL [facility] RBC (Bld) [#/Vol] 3.76 10*6/uL Low 3.8 - 5.20 10*6/uL [facility] WBC (Bld) [#/Vol] 7.5 10*3/uL 3.6 - 10.7 10*3/uL [facility] Laboratory - Chemistry and C hemistry - challengeon 07-19-2022 Magnesium [Mass/Vol] 1.8 mg/dL 1.6 - 2 .3 mg/dL [facility] Magnesium [Mass/Vol] 1.7 mg/dL 1.6 - 2 .3 mg/dL [facility] Laboratory - Microbiology an d Antimicrobial susceptibilityOrdered By: Autumn Sullivan on 07-19-2022 Bacteria identified Cx Nom (U) Normal urogenital michael present [facility] Magnesium [Mass/Vol]on 07-19 Interpretation and review of laboratory results Normal [facility] Interpretation and review of laboratory results Normal [facility] No Panel InformationOrdered By: Rick Davis on 07-19-2022 P [place] 13 degrees [facility] Work Phone: RI Interval 135 ms [facility] Work Phone: QRS [place] 2 degrees [employer] [facility] Work Phone: QRSD Interval 120 ms [employer] Work Phone: QT Interval 344 ms [employer] [facility] Work Phone: QTC Interval 480 ms [employer] Work Phone: T Wave [place] 174 degrees [employer] [facility] Work Phone: [employer] [facility] Work Phone: No Panel Informationon 07-19 SINUS TACHYCARDIA VENTRICULAR BIGEMINY PROBABLE LEFT ATRIAL ABNORMALITY NONSPECIFIC INTRAVENTRICULAR CONDUCTION DELAY LVH WITH SECONDARY REPOLARIZATION ABNORMALITY ANTERIOR Q WAVES, POSSIBLY DUE TO LVH Compared to ECG 07/17/2022 20:51:51 Ventricular premature complex(es) now present Intraventricular conduction delay now present Sinus rhythm no longer present Electronically Signed On 07-19-2022 16:13:39 EST by Rick Davis CV Rick Carbajal MD - 07/19/2022 IMPRESSION: SINUS TACHYCARDIA VENTRICULAR BIGEMINY PROBABLE LEFT ATRIAL ABNORMALITY NONSPECIFIC INTRAVENTRICULAR CONDUCTION DELAY LVH WITH SECONDARY REPOLARIZATION ABNORMALITY ANTERIOR Q WAVES, POSSIBLY DUE TO LVH Compared to ECG 07/17/2022 20:51:51 Ventricular premature complex(es) now present Intraventricular conduction delay now present Sinus rhythm no longer present Electronically Signed On 07-19-2022 16:13:39 EST by Rick Davis [facility] P [place] degrees [facility] RI Interval ms [facility] QRS [place] 9 degrees [facility] QRSD Interval 112 ms [facility] QT Interval 334 ms [facility] QTC Interval 480 ms [facility] T Wave [place] 194 degrees [facility] Atrial fibrillation Frequent Ventricular premature complex Incomplete left bundle branch block Anterior Q waves, possibly due to ILBBB Electronically Signed On 07-19-2022 12:52:11 EST by Rick Davis CV Rick Carbajal MD - 07/19/2022 IMPRESSION: Atrial fibrillation Frequent Ventricular premature complex Incomplete left bundle branch block Anterior Q waves, possibly due to ILBBB Electronically Signed On 07-19-2022 12:52:11 EST by Rick Davis [facility] Heart TransthoracicOrdere d By: Darshan Painting on 07-19-2022 Ao Root Index 2.19 cm/m2 [facility] Work Phone: [phone] Aortic Root 3.9 cm [facility] Work Phone: ) 95 AV Area by Peak Velocity 3.4 cm2 [facility] Work Phone: ) 95 AV Area by VTI 3.1 cm2 [facility] Work Phone: () 95 AV Mean Gradient 4 mmHg [facility] Work Phone: () 95 AV Mean Velocity 1.0 m/s [facility] Work Phone: ) 95 AV Peak Gradient 7 mmHg [facility] Work Phone: () 95 AV Peak Velocity 1.3 m/s [facility] Work Phone: () 95 AV Velocity Ratio 0.69 [facility] Work Phone: ) 95 AV VTI 26.8 cm [facility] Work Phone: () 95 CANDIS/BSA Peak Velocity 1.9 cm2/m2 [facility] Work Phone: () 95 CANDIS/BSA VTI 1.7 cm2/m2 [facility] Work Phone: [phone] E/E' Lateral 7.55 [facility] Work Phone: () 95 E/E' Ratio (Averaged) 8.96 [facility] Work Phone: [phone] E/E' Septal 10.38 [facility] Work Phone: [phone] EF BP 41 % Abnormal 55 - 100 % [facility] Work Phone: Interpretation and review of laboratory results Abnormal [facility] Work Phone: IVC Diameter 1.5 cm [facility] Work Phone: LA Volume 2C 59 mL Abnormal 22 - 52 mL [facility] Work Phone: LA Volume 4C 42 mL 22 - 52 mL [facility] Work Phone: [phone] LA Volume A/L 61 mL [facility] Work Phone: LA Volume BP 58 mL Abnormal 22 - 52 mL [facility] Work Phone: LA Volume Index 2C 33 mL/m2 16 - 34 mL/m2 [facility] Work Phone: LA Volume Index 4C 24 mL/m2 16 - 34 mL/m2 [facility] Work Phone: LA Volume Index A/L 34 mL/m2 16 - 34 mL/m2 [facility] Work Phone: LA Volume Index BP 33 ml/m2 16 - 34 ml/m2 [facility] Work Phone: LV E' Lateral Velocity 11 cm/s [facility] Work Phone: LV E' Septal Velocity 8 cm/s [facility] Work Phone: LV EDV A2C 55 mL [facility] Work Phone: LV EDV A4C 54 mL [facility] Work Phone: LV EDV BP 57 mL 56 - 104 mL [facility] Work Phone: LV EDV Index A2C 31 mL/m2 [facility] Work Phone: LV EDV Index A4C 30 mL/m2 [facility] Work Phone: LV EDV Index BP 32 mL/m2 [facility] Work Phone: LV Ejection Fraction A2C 36 % [facility] Work Phone: LV Ejection Fraction A4C 41 % [facility] Work Phone: LV ESV A2C 35 mL [facility] Work Phone: [phone] LV ESV A4C 32 mL [facility] Work Phone: [phone] LV ESV BP 33 mL 19 - 49 mL [facility] Work Phone: [phone] LV ESV Index A2C 20 mL/m2 [facility] Work Phone: [phone] LV ESV Index A4C 18 mL/m2 [facility] Work Phone: [phone] LV ESV Index BP 19 mL/m2 [facility] Work Phone: [phone] LVOT Area 5.3 cm2 [facility] Work Phone: [phone] LVOT Cardiac Output 6.8 liter/mi nut e [facility] Work Phone: [phone] LVOT Diameter 2.6 cm [facility] Work Phone: [phone] LVOT Mean Gradient 2 mmHg [facility] Work Phone: [phone] LVOT Peak Gradient 3 mmHg [facility] Work Phone: [phone] LVOT Peak Velocity 0.9 m/s [facility] Work Phone: [phone] LVOT Stroke Volume Index 48.6 mL/m2 [facility] Work Phone: [phone] LVOT SV 86.5 ml [facility] Work Phone: [phone] LVOT VTI 16.3 cm [facility] Work Phone: [phone] LVOT:AV VTI Index 0.61 [facility] Work Phone: [phone] MV A Velocity 0.89 m/s [facility] Work Phone: [phone] MV E Velocity 0.83 m/s [facility] Work Phone: [phone] MV E Wave Deceleration Time 206.2 ms [facility] Work Phone: [phone] MV E/A 0.93 [facility] Work Phone: [phone] RA Area 4C 33.8 mL [facility] Work Phone: [phone] RA Area 4C 30.7 mL [facility] Work Phone: [phone] RV Basal Dimension 3.9 cm [facility] Work Phone: [phone] RV Mid Dimension 2.6 cm Taylor Muller [facility] Work Phone: [phone] TAPSE 2.3 cm 1.7 cm [facility] Work Phone: [phone] Max Velocity 2.60 m/s Taylor Myers [facility] Work Phone: [phone] TR Peak Gradient 27 mmHg [facility] Work Phone: [phone] [facility] Work Phone: [phone] Heart Transthoracicon Left Ventricle: Left ventricle size is normal. Normal wall thickness. Moderately reduced left ventricular systolic function. The EF by visual approximation is 40%. Normal wall motion. Grade II diastolic dysfunction with increased LAP. Right Ventricle: Right ventricle size is normal. Normal systolic function. No significant valvular abnormalities. Technically difficult study. Left Ventricle Left ventricle size is normal. Normal wall thickness. Moderately reduced left ventricular systolic function. The EF by visual approximation is 40%. Normal wall motion. Grade II diastolic dysfunction with increased LAP. Right Ventricle Right ventricle size is normal. Normal systolic function. Left Atrium Left atrium size is normal (LA volume index 16-34 mL/m2). Right Atrium Right atrium size is normal. IVC/SVC IVC diameter is normal and decreases greater than 50% during inspiration; therefore the estimated right atrial pressure is normal (~3 mmHg). Mitral Valve Valve structure is normal. Moderate annular calcification (posterior). No regurgitation. No stenosis noted. Tricuspid Valve Valve structure is normal. Mild (1+) regurgitation. Normal RVSP. Aortic Valve Trileaflet. No cusp thickening. No cusp calcification. No regurgitation. No stenosis. Pulmonic Valve Valve structure is normal. Trace regurgitation. Ascending Aorta Normal sized ascending aorta. Mildly dilated sinuses of Valsalva. Pericardium No pericardial effusion. Septum No interatrial shunt visualized on color Doppler. Study Details Image quality: adequate. Heart rate: 83 bpm. Blood pressure: 106/63 mmHg. The underlying ECG rhythm was sinus rhythm. Technical qualifiers: Technically difficult study. Ultrasound enhancement agent was given to enhance imaging. Echo Additional Conclusions No significant valvular abnormalities.Techni taryn difficult study. Wall Scoring Baseline Score Index: 2.00 The left ventricular wall motion is globally hypokinetic. CV CPACS Vital signsOrdered By: Isaura Davis on 07-19-2022 Heart rate 117 /min bpm [facility] Work Phone: Vital signson 07-19-2022 Heart rate 124 /min bpm [facility] Basic metabolic 1998 panelon 07-18-2022 Anion gap [Moles/Vol] 4 mmol/L 3 - 13 mmol/L [facility] Calcium [Mass/Vol] 7.7 mg/dL Low 8.4 - 10. 4 mg/dL [facility] Chloride [Moles/Vol] 110 mmol/L High 98 - 10 7 mmol/L [facility] CO2 [Moles/Vol] 22 mmol/L 22 - 30 mmol/L [facility] Creatinine [Mass/Vol] 0.67 mg/dL 0.52 - 1.04 mg/dL [facility] GFR/1.73 sq M.predicted MDRD (S/P/Bld) [Vol rate/Area] - PINF [facility] Comment on above: Calculation based on the Chronic Kidney Disease Epidemiology Collaboration (CKD-EPI) equation refit without adjustment for race Glucose [Mass/Vol] 119 mg/dL High 70 - 100 mg/dL [facility] Interpretation and review of laboratory results Abnormal [facility] th Potassium [Moles/Vol] 3.3 mmol/L Low 3.5 - 5.1 mmol/L [facility] Sodium [Moles/Vol] 137 mmol/L 135 - 145 mmol/L [facility] Urea nitrogen [Mass/Vol] 15 mg/dL 7 - 17 mg/dL [facility] CBC W Auto Differential pane l (Bld)on 07-18-2022 Basophils (Bld) [#/Vol] 0.0 10*3/uL 0.0 - 0.2 10*3/uL [facility] Basophils/100 WBC (Bld) 0.3 % 0.0 - 2.0 % [facility] Eosinophils (Bld) [#/Vol] 0.0 10*3/uL 0. 0 - 0.5 10*3/uL [facility] Eosinophils/100 WBC (Bld) 0.5 % Low 1.0 - 6.0 % [facility] Erythrocyte distribution width (RBC) [Ratio] 14.1 % 11.5 - 14.5 % [facility] Hematocrit (Bld) [Volume fraction] 32.9 % Low 35.0 - 47.0 % [facility] Hemoglobin (Bld) [Mass/Vol] 10.9 g/dL Low 11.7 - 16.0 g/dL [facility] Interpretation and review of laboratory results Abnormal [facility] th Lymphocytes (Bld) [#/Vol] 0.6 10*3/uL Low 1. 0 - 4.3 10*3/uL [facility] Lymphocytes/100 WBC (Bld) 7.3 % Low 20 .0 - 40.0 % [facility] MCH (RBC) [Entitic mass] 28.2 pg 26. 0 - 34.0 pg [facility] MCHC (RBC) [Mass/Vol] 33.3 % 32.0 - 36.0 % [facility] MCV (RBC) [Entitic vol] 84.8 fL 80.0 - 98.0 fL [facility] Monocytes (Bld) [#/Vol] 0.3 10*3/uL 0.0 - 0.8 10*3/uL [facility] Monocytes/100 WBC (Bld) 4.0 % 2.0 - 10.0 % [facility] Neutrophils (Bld) [#/Vol] 7.3 10*3/uL High 1. 8 - 7.0 10*3/uL [facility] Neutrophils/100 WBC (Bld) 87.9 % High 40 .0 - 80.0 % [facility] Nucleated RBC/100 WBC (Bld) [Ratio] 0.0 % [facility] Platelet mean volume (Bld) [Entitic vol] 7.3 fL Low 7.4 - 12.4 fL [facility] Platelets (Bld) [#/Vol] 153 10*3/uL 140 - 440 10*3/uL [facility] RBC (Bld) [#/Vol] 3.88 10*6/uL 3.8 - 5.20 10*6/uL [facility] WBC (Bld) [#/Vol] 8.3 10*3/uL 3.6 - 10.7 10*3/uL [facility] Laboratory - Chemistry and C hemistry - challengeon 07-18-2022 Magnesium [Mass/Vol] 1.7 mg/dL 1.6 - 2 .3 mg/dL [facility] Magnesium [Mass/Vol]on 07-18 Interpretation and review of laboratory results Normal [facility] No Panel InformationOrdered By: Tiesha Taylor on 07-18-2022 Interpretation and review of laboratory results Abnormal [facility] Proteus species Detected Abnormal Not Detected [facility] Methodology: Multiplex PCR The [employer] BCID panel can detect the following organisms: E. faecalis, E. faecium, Staphylococcus spp., S. aureus, S. epidermidis, S. lugdunensis, Streptococcus spp., S. pyogenes (Group A), S. agalactiae (Group B), S. pneumoniae, A. baumannii complex, B. fragilis, H. influenzae, N. meningitidis, P. aeruginosa, S. maltophilia, Enterobacterales, E. cloacae complex, E. coli, K. aerogenes, K. oxytoca, K. pneumoniae, Proteus spp., Salmonella spp., S. marcescens, C. albicans, C. auris, C. glabrata, C. krusei, C. parapsilosis, C. tropicalis, and C. neoformans/gattii. The following antimicrobial resistance genes are reported if appropriate organisms are detected: mecA/C and Pedro/B. The following antimicrobial resistance genes are reported if detected and the appropriate organisms are detected: CTX-M, IMP, KPC, NDM, OXA-48-like, VIM, and mcr-1. [facility] Urinalysis complete panel (U )Ordered By: Manas Bal on 07-18-2022 Bacteria LM.HPF (Urine sed) [#/Area] Moderate Abnormal Negative /HPF [facility] Bilirubin Ql (U) Negative Negative mg/dL [facility] Clarity (U) Turbid Abnormal Clear [facility] Color (U) Yellow Lt. Yellow [facility] Epithelial cells.squamous LM.HPF (Urine sed) [#/Area] 3-5 [facility] Glucose Ql (U) Normal Normal (<70) mg/dL [facility] Hemoglobin Ql (U) 0.2 mg/dL Abnormal Negative [facility] Interpretation and review of laboratory results Abnormal [facility] Ketones (U) [Mass/Vol] Negative Negat moustapha mg/dL [facility] Leukocyte esterase Test strip Ql (U) 500 Abnormal Negative [place]/uL [facility] Mucus LM.HPF (Urine sed) [#/Area] Few Negative /LPF [facility] Nitrite Ql (U) Positive Abnormal Negative [facility] th pH (U) 7.0 [pH] 5.0 - 8.0 pH [facility] Protein (U) [Mass/Vol] 20 mg/dL Abnormal Negative [facility] RBC LM.HPF (Urine sed) [#/Area] 11-25 Abnormal [facility] Specific gravity (U) [Rel density] 1.011 1.005 - 1.030 [facility] Urobilinogen (U) [Mass/Vol] Normal Normal (0-1) mg/dL [facility] WBC LM.HPF (Urine sed) [#/Area] 26-50 Abnormal [facility] CBC W Auto Differential pane l (Bld)Ordered By: João Martinez on 07-17-2022 Basophils (Bld) [#/Vol] 0.1 10*3/uL 0.0 - 0.2 10*3/uL [facility] Basophils/100 WBC (Bld) 0.8 % 0.0 - 2.0 % [facility] Eosinophils (Bld) [#/Vol] 0.2 10*3/uL 0. 0 - 0.5 10*3/uL [facility] Eosinophils/100 WBC (Bld) 3.0 % 1.0 - 6.0 % [facility] Erythrocyte distribution width (RBC) [Ratio] 14.0 % 11.5 - 14.5 % [facility] Hematocrit (Bld) [Volume fraction] 39.5 % 35.0 - 47.0 % [facility] Hemoglobin (Bld) [Mass/Vol] 12.8 g/dL 11.7 - 16.0 g/dL [facility] Interpretation and review of laboratory results Abnormal [facility] th Lymphocytes (Bld) [#/Vol] 1.1 10*3/uL 1. 0 - 4.3 10*3/uL [facility] Lymphocytes/100 WBC (Bld) 15.4 % Low 20 .0 - 40.0 % [facility] MCH (RBC) [Entitic mass] 27.6 pg 26. 0 - 34.0 pg [facility] MCHC (RBC) [Mass/Vol] 32.5 % 32.0 - 36.0 % [facility] MCV (RBC) [Entitic vol] 85.0 fL 80.0 - 98.0 fL [facility] Monocytes (Bld) [#/Vol] 0.5 10*3/uL 0.0 - 0.8 10*3/uL [facility] Monocytes/100 WBC (Bld) 6.9 % 2.0 - 10.0 % [facility] Neutrophils (Bld) [#/Vol] 5.4 10*3/uL 1. 8 - 7.0 10*3/uL [facility] Neutrophils/100 WBC (Bld) 73.9 % 40 .0 - 80.0 % [facility] Nucleated RBC/100 WBC (Bld) [Ratio] 0.0 % [facility] Platelet mean volume (Bld) [Entitic vol] 7.7 fL 7.4 - 12.4 fL [facility] Platelets (Bld) [#/Vol] 201 10*3/uL 140 - 440 10*3/uL [facility] RBC (Bld) [#/Vol] 4.64 10*6/uL 3.8 - 5.20 10*6/uL [facility] WBC (Bld) [#/Vol] 7.3 10*3/uL 3.6 - 10.7 10*3/uL [facility] Comprehensive metabolic 1998 panelon 07-17-2022 Albumin [Mass/Vol] 3.7 g/dL 3.5 - 5.0 g/dL [facility] ALP [Catalytic activity/Vol] 75 U/L 38 - 126 U/L [facility] ALT [Catalytic activity/Vol] 15 U/L 0 - 34 U/L [facility] Anion gap [Moles/Vol] 3 mmol/L 3 - 13 mmol/L [facility] AST [Catalytic activity/Vol] 26 U/L 15 - 46 U/L [facility] Bilirubin [Mass/Vol] 0.6 mg/dL 0.2 - 1 .3 mg/dL [facility] Calcium [Mass/Vol] 8.8 mg/dL 8.4 - 10. 4 mg/dL [facility] Chloride [Moles/Vol] 112 mmol/L High 98 - 10 7 mmol/L [facility] CO2 [Moles/Vol] 25 mmol/L 22 - 30 mmol/L [facility] Creatinine [Mass/Vol] 0.69 mg/dL 0.52 - 1.04 mg/dL [facility] GFR/1.73 sq M.predicted MDRD (S/P/Bld) [Vol rate/Area] - PINF [facility] Comment on above: Calculation based on the Chronic Kidney Disease Epidemiology Collaboration (CKD-EPI) equation refit without adjustment for race Glucose [Mass/Vol] 108 mg/dL High 70 - 100 mg/dL [facility] Interpretation and review of laboratory results Abnormal [facility] Potassium [Moles/Vol] 3.7 mmol/L 3.5 - 5.1 mmol/L [facility] Protein [Mass/Vol] 6.9 g/dL 6.3 - 8.2 g/dL [facility] Sodium [Moles/Vol] 139 mmol/L 135 - 145 mmol/L [facility] Urea nitrogen [Mass/Vol] 15 mg/dL 7 - 17 mg/dL [facility] Laboratory - Chemistry and C hemistry - challengeon 07-17-2022 Lactate [Moles/Vol] 0.9 mmol/L 0.7 - 2. 0 mmol/L [facility] No Panel Informationon 07-17 Interpretation and review of laboratory results Normal [facility] P [place] 19 degrees [facility] RI Interval 184 ms [facility] QRS [place] -2 degrees [facility] QRSD Interval 108 ms [facility] h QT Interval 344 ms [facility] QTC Interval 442 ms [facility] T Wave [place] 166 degrees [facility] SINUS RHYTHM PROBABLE LEFT ATRIAL ABNORMALITY LVH WITH SECONDARY REPOLARIZATION ABNORMALITY ANTERIOR Q WAVES, POSSIBLY DUE TO LVH No previous ECG available for comparison Electronically Signed On 07-17-2022 21:13:26 EST by Cody Contreras MD - 07/17/2022 IMPRESSION: SINUS RHYTHM PROBABLE LEFT ATRIAL ABNORMALITY LVH WITH SECONDARY REPOLARIZATION ABNORMALITY ANTERIOR Q WAVES, POSSIBLY DUE TO LVH No previous ECG available for comparison Electronically Signed On 07-17-2022 21:13:26 EST by Cody Norton [facility] Urinalysis complete panel (U )Ordered By: Smooth Jefferson on 07-17-2022 Bacteria LM.HPF (Urine sed) [#/Area] Many Abnormal Negative /HPF [facility] Bilirubin Ql (U) Negative Negative mg/dL [facility] Clarity (U) Turbid Abnormal Clear [facility] Color (U) Dark Yellow Abnormal Lt. Yellow [facility] Epithelial cells.squamous LM.HPF (Urine sed) [#/Area] 3-5 [facility] Glucose Ql (U) Normal Normal (<70) mg/dL [facility] Hemoglobin Ql (U) >1.0 Abnormal Negative mg/dL [facility] Interpretation and review of laboratory results Abnormal [facility] Ketones (U) [Mass/Vol] Negative Negat moustapha mg/dL [facility] Leukocyte clumps LM.HPF (Urine sed) [#/Area] Few Abnormal Negative /HPF [facility] Leukocyte esterase Test strip Ql (U) 500 Abnormal Negative [place]/uL [facility] Mucus LM.HPF (Urine sed) [#/Area] Few Negative /LPF [facility] Nitrite Ql (U) Positive Abnormal Negative [facility] th pH (U) 7.5 [pH] 5.0 - 8.0 pH [facility] Protein (U) [Mass/Vol] 30 mg/dL Abnormal Negative [facility] RBC LM.HPF (Urine sed) [#/Area] 11-25 Abnormal [facility] Specific gravity (U) [Rel density] 1.013 1.005 - 1.030 [facility] Urobilinogen (U) [Mass/Vol] Normal Normal (0-1) mg/dL [facility] WBC LM.HPF (Urine sed) [#/Area] 51-100 Abnormal [facility] Vital signson 07-17-2022 Heart rate 99 /min bpm [facility] XR Abdomen Single viewon 1. Left ureteral stent, proximal coil are show only an wound, in the region of the left renal pelvis. Left renal calculi. Possible distal ureteral calculi on the left. Report Dictated on Electronically Signed By: Gregor Price Electronically Signed Date/Time: 07/17/2022 9:16 PM [facility] Patient Name: YASH FRANCOIS Exam Date/Time: 07/17/2022 21:09 Procedure: XR ABDOMEN 1 VIEW Ordering Provider: PARADA AMY Reason For Exam: SINGLE VIEW ABDOMEN CLINICAL INDICATION: Nephrolithiasis TECHNIQUE: Single view abdomen x-ray COMPARISON: CT scan from 05/16/2022 FINDINGS: There is a left ureteral stent. [...] represent ureteral calculi. Normal bowel gas pattern. [facility] Gregor Price MD - 07/17/2022 Patient Name: YASH FRANCOIS Exam Date/Time: 07/17/2022 21:09 Procedure: XR ABDOMEN 1 VIEW Ordering Provider: PARADA AMY Reason For Exam: SINGLE VIEW ABDOMEN CLINICAL INDICATION: Nephrolithiasis TECHNIQUE: Single view abdomen x-ray COMPARISON: CT scan from 05/16/2022 FINDINGS: There is a left ureteral stent. [...] Possible distal ureteral calculi on the left. Report Dictated on Electronically Signed By: Gregor Price Electronically Signed Date/Time: 07/17/2022 9:16 PM [facility] Radiology Study observation (narrative) [facility] XR Abdomen Single viewOrdere d By: Gregor Price on 07-17-2022 [facility] Work Phone: UA (POC)on 04-21-2022 Perf Loc - POCT Tested at AM Normal [facility] ([place]) Comment on above: Result Comment: Sasha [address] [place], [place] [address] Appearance (U) Slightly Cloudy Normal [facility] ([place]) Bilirubin Ql (U) Negative Normal Neg-Trace [facility] [place] Color (U) Light yellow Normal [facility] [place] Glucose Ql (U) Negative Normal Negative [facility] [place] Hemoglobin Ql (U) Small Abnormal Neg-Trace [facility] [place] Ketones Ql (U) Negative Normal Neg-Trace [facility] [place] Leukocyte esterase Test strip Ql (U) Small Abnormal Neg-Trace [facility] [place] Nitrite Ql (U) Negative Normal Negative [facility] [place] Performing Instrument - POCT CLINITEK Normal [facility] [place] pH (U) 7.0 [pH] Normal 5.0 - 8.0 [facility] [place] Protein Ql (U) Negative Normal Neg-30 [facility] [place] Specific gravity (U) [Rel density] 1.020 Normal 1.006-1.029 [facility] ([place] Urobilinogen Qn (U) 0.2 {Magy'U}/dL Normal 0.2-1.0 [facility] ([place] Vital Signs Date Time Vital Sign Value Performing Clinician Facility 08-10-2023 15:00-0500 Body temperature 97.5 [degF] [facility] 08-10-2023 15:00-0500 Diastolic blood pressure 96 mm[Hg] [facility] 08-10-2023 15:00-0500 Heart rate 94 /min [facility] 08-10-2023 15:00-0500 Respiratory rate 16 /min [facility] 08-10-2023 15:00-0500 SaO2% (BldA) [Mass fraction] 96 % [facility] 08-10-2023 15:00-0500 Systolic blood pressure 112 mm[Hg] [facility] 08-10-2023 11:56-0500 Body height 162.56 cm [facility] 08-10-2023 11:56-0500 Body mass index (BMI) [Ratio] 27.8 kg/m2 [facility] 08-10-2023 11:56-0500 Body weight 73.4 kg [facility] 07-09-2023 16:45-0500 Diastolic blood pressure 71 mm[Hg] [facility] 07-09-2023 16:45-0500 Heart rate 102 /min [facility] 07-09-2023 16:45-0500 Respiratory rate 18 /min [facility] 07-09-2023 16:45-0500 SaO2% (BldA) [Mass fraction] 95 % [facility] 07-09-2023 16:45-0500 Systolic blood pressure 124 mm[Hg] [facility] 07-09-2023 10:56-0500 Body temperature 97.6 [degF] [facility] 07-09-2023 08:14-0500 Body height 162.56 cm [facility] 07-09-2023 08:14-0500 Body mass index (BMI) [Ratio] 27.8 kg/m2 [facility] 07-09-2023 08:14-0500 Body weight 73.61 kg [facility] 05-10-2023 23:51-0500 Diastolic blood pressure 77 mm[Hg] CARLOS GONZALEZ Work Phone: [facility] 05-10-2023 23:51-0500 Heart rate 84 /min CARLOS GONZALEZ Work Phone: [facility] 05-10-2023 23:51-0500 Respiratory rate 16 /min CARLOS GONZALEZ Work Phone: [facility] 05-10-2023 23:51-0500 SaO2% (BldA) [Mass fraction] 98 % CARLOS GONZALEZ Work Phone: [facility] 05-10-2023 23:51-0500 Systolic blood pressure 142 mm[Hg] CARLOS GONZALEZ Work Phone: [facility] 05-10-2023 21:14-0500 Body height 162.56 cm PA Julián Keller PA Work Phone: [facility] 05-10-2023 21:14-0500 Body mass index (BMI) [Ratio] 27.6 kg/m2 PA Julián Keller PA Work Phone: [facility] 05-10-2023 21:14-0500 Body temperature 97.9 [degF] PA Julián Keller PA Work Phone: [facility] 05-10-2023 21:14-0500 Body weight 73.08 kg PA Julián Keller PA Work Phone: [facility] 04-05-2023 15:18-0400 Body height 162.6 cm Christina Francisco MD Work Phone: [facility] 04-05-2023 15:18-0400 Body mass index (BMI) [Ratio] 27.17 kg/m2 Christina Francisco MD Work Phone: [facility] 04-05-2023 15:18-0400 Body temperature 97.59 [degF] Christina Francisco MD Work Phone: [facility] 04-05-2023 15:18-0400 Body weight 71.8 kg Christina Francisco MD Work Phone: [facility] 04-05-2023 15:18-0400 Diastolic blood pressure 75 mm[Hg] Christina Francisco MD Work Phone: [facility] 04-05-2023 15:18-0400 Heart rate 73 /min Christina Francisco MD Work Phone: [facility] 04-05-2023 15:18-0400 Systolic blood pressure 130 mm[Hg] Christina Francisco MD Work Phone: [facility] 03-16-2023 15:58-0400 Body height 162.6 cm Peter Patrick MD Work Phone: [facility] 03-16-2023 15:58-0400 Body mass index (BMI) [Ratio] 27.62 kg/m2 Peter Patrick MD Work Phone: [facility] 03-16-2023 15:58-0400 Body temperature 97.7 [degF] Peter Patrick MD Work Phone: [facility] 03-16-2023 15:58-0400 Body weight 72.98 kg Peter Patrick MD Work Phone: [facility] 03-16-2023 15:58-0400 Diastolic blood pressure 64 mm[Hg] Peter Patrick MD Work Phone: [facility] 03-16-2023 15:58-0400 Heart rate 64 /min Peter Patrick MD Work Phone: [facility] 03-16-2023 15:58-0400 Systolic blood pressure 135 mm[Hg] Peter Patrick MD Work Phone: [facility] 03-06-2023 14:19-0400 Body height 163.8 cm Niyah Escalera CNP Work Phone: [facility] 03-06-2023 14:19-0400 Body mass index (BMI) [Ratio] 26.8 kg/m2 Niyah Escalera CNP Work Phone: [facility] 03-06-2023 14:19-0400 Body weight 71.94 kg Niyah Escalera CNP Work Phone: [facility] 03-06-2023 14:19-0400 Diastolic blood pressure 66 mm[Hg] Niyah Escalera CNP Work Phone: [facility] 03-06-2023 14:19-0400 Heart rate 80 /min Niyah Escalera CNP Work Phone: [facility] 03-06-2023 14:19-0400 Respiratory rate 18 /min Niyah Escalera CNP Work Phone: [facility] 03-06-2023 14:19-0400 SaO2% (BldA) [Mass fraction] 93 % Niyah Escalera CNP Work Phone: [facility] Comment on above: RA 03-06-2023 14:19-0400 Systolic blood pressure 128 mm[Hg] Niyah Escalera CNP Work Phone: [facility] 02-14-2023 15:39-0400 Body height 163.8 cm Sandro Kerr MD Work Phone: [facility] 02-14-2023 15:39-0400 Body mass index (BMI) [Ratio] 26.79 kg/m2 Sandro Kerr MD Work Phone: [facility] 02-14-2023 15:39-0400 Body temperature 96.4 [degF] Sandro Kerr MD Work Phone: [facility] 02-14-2023 15:39-0400 Body weight 71.89 kg Sandro Kerr MD Work Phone: [facility] 02-14-2023 15:39-0400 Diastolic blood pressure 67 mm[Hg] Sandro Kerr MD Work Phone: [facility] 02-14-2023 15:39-0400 Heart rate 74 /min Sandro Kerr MD Work Phone: [facility] 02-14-2023 15:39-0400 Systolic blood pressure 121 mm[Hg] aSndro Kerr MD Work Phone: [facility] 01-16-2023 16:09-0400 Body height 163.8 cm Sandro Kerr MD Work Phone: [facility] 01-16-2023 16:09-0400 Body mass index (BMI) [Ratio] 27.02 kg/m2 Sandro Kerr MD Work Phone: [facility] 01-16-2023 16:09-0400 Body temperature 98.01 [degF] Sandro Kerr MD Work Phone: [facility] 01-16-2023 16:09-0400 Body weight 72.53 kg Sandro Kerr MD Work Phone: [facility] 01-16-2023 16:09-0400 Diastolic blood pressure 63 mm[Hg] Sandro Kerr MD Work Phone: [facility] 01-16-2023 16:09-0400 Heart rate 68 /min Sandro Kerr MD Work Phone: [facility] 01-16-2023 16:09-0400 Systolic blood pressure 128 mm[Hg] Sandro Kerr MD Work Phone: [facility] 11-16-2022 15:02-0400 Body height 163.8 cm Suly Parker MD Work Phone: [facility] 11-16-2022 15:02-0400 Body mass index (BMI) [Ratio] 26.7 kg/m2 Suly Parker MD Work Phone: [facility] 11-16-2022 15:02-0400 Body temperature 97.5 [degF] Suly Parker MD Work Phone: [facility] 11-16-2022 15:02-0400 Body weight 71.67 kg Suly Parker MD Work Phone: [facility] 11-16-2022 15:02-0400 Diastolic blood pressure 68 mm[Hg] Suly Parker MD Work Phone: [facility] 11-16-2022 15:02-0400 Heart rate 73 /min Suly Parker MD Work Phone: [facility] 11-16-2022 15:02-0400 Systolic blood pressure 127 mm[Hg] Suly Parker MD Work Phone: [facility] 08-22-2022 10:05-0400 Body height 162.6 cm Julianne Joya DO Work Phone: [facility] 08-22-2022 10:05-0400 Body mass index (BMI) [Ratio] 27.46 kg/m2 Julianne Sandss DO Work Phone: [facility] 08-22-2022 10:05-0400 Body weight 72.58 kg Julianne Cortney DO Work Phone: [facility] 08-22-2022 10:05-0400 Diastolic blood pressure 76 mm[Hg] Julianne Cortney DO Work Phone: [facility] 08-22-2022 10:05-0400 Heart rate 75 /min Julianne Cortney DO Work Phone: [facility] 08-22-2022 10:05-0400 Systolic blood pressure 133 mm[Hg] Julianne Cortney DO Work Phone: [facility] 08-16-2022 16:30-0500 Diastolic blood pressure 72 mm[Hg] Julianne Cortney DO Work Phone: [facility] 08-16-2022 16:30-0500 Heart rate 68 /min Julianne Cortney DO Work Phone: [facility] 08-16-2022 16:30-0500 Respiratory rate 16 /min Julianne Cortney DO Work Phone: [facility] 08-16-2022 16:30-0500 SaO2% (BldA) [Mass fraction] 98 % Julianne Cortney DO Work Phone: [facility] 08-16-2022 16:30-0500 Systolic blood pressure 136 mm[Hg] Julianne Cortney DO Work Phone: [facility] 08-16-2022 15:40-0500 Body temperature 97 [degF] Julianne Cortney DO Work Phone: [facility] 08-16-2022 12:08-0500 Body height 162.6 cm Julianne Cortney DO Work Phone: [facility] 08-16-2022 12:08-0500 Body mass index (BMI) [Ratio] 27.46 kg/m2 Julianne Cortney DO Work Phone: [facility] 08-16-2022 12:08-0500 Body weight 72.58 kg Julianne Joya DO Work Phone: [facility] 08-05-2022 09:10-0500 Body height 163.8 cm Aiyana Isa [employer] Work Phone: [facility] 08-05-2022 09:10-0500 Body mass index (BMI) [Ratio] 27.04 kg/m2 Aiyana Isa [employer] - [employer] Work Phone: [facility] 08-05-2022 09:10-0500 Body weight 72.58 kg Aiyana Isa [employer] - [employer]ER Work Phone: [facility] 08-05-2022 09:10-0500 Diastolic blood pressure 70 mm[Hg] Aiyana Isa [employer] - [employer] Work Phone: [facility] 08-05-2022 09:10-0500 Heart rate 72 /min Aiyana Isa [employer] - [employer] Work Phone: [facility] 08-05-2022 09:10-0500 Respiratory rate 14 /min Aiyana Isa [employer] - [employer]ER Work Phone: [facility] 08-05-2022 09:10-0500 Systolic blood pressure 114 mm[Hg] Aiyana Isa [employer] - [employer] Work Phone: [facility] 07-29-2022 09:27-0500 Body height 163.8 cm Suly Parker MD Work Phone: [facility] 07-29-2022 09:27-0500 Body mass index (BMI) [Ratio] 27.21 kg/m2 Suly Parker MD Work Phone: [facility] 07-29-2022 09:27-0500 Body temperature 97.11 [degF] Suly Parker MD Work Phone: [facility] 07-29-2022 09:27-0500 Body weight 73.03 kg Suly Parker MD Work Phone: [facility] 07-29-2022 09:27-0500 Diastolic blood pressure 59 mm[Hg] Suly Parker MD Work Phone: [facility] 07-29-2022 09:27-0500 Heart rate 70 /min Suly Parker MD Work Phone: [facility] 07-29-2022 09:27-0500 Systolic blood pressure 109 mm[Hg] Suly Parker MD Work Phone: [facility] 07-23-2022 07:56-0500 Body temperature 98.4 [degF] Cody Norton MD Work Phone: [facility] 07-23-2022 07:56-0500 Diastolic blood pressure 75 mm[Hg] Cody Norton MD Work Phone: [facility] 07-23-2022 07:56-0500 Heart rate 74 /min Cody Norton MD Work Phone: [facility] 07-23-2022 07:56-0500 Respiratory rate 18 /min Cody Norton MD Work Phone: [facility] 07-23-2022 07:56-0500 SaO2% (BldA) [Mass fraction] 94 % Cody Norton MD Work Phone: [facility] 07-23-2022 07:56-0500 Systolic blood pressure 119 mm[Hg] Cody Norton MD Work Phone: [facility] 07-19-2022 14:40-0500 Body height 162.6 cm Cody Norton MD Work Phone: [facility] 07-19-2022 14:40-0500 Body mass index (BMI) [Ratio] 27.64 kg/m2 Cody Norton MD Work Phone: [facility] 07-19-2022 14:40-0500 Body weight 73.03 kg Cody Norton MD Work Phone: [facility] 07-06-2022 14:21-0500 Body temperature 97 [degF] Julianne Sandss DO Work Phone: [facility] 07-06-2022 14:21-0500 Diastolic blood pressure 78 mm[Hg] Julianne Sandss DO Work Phone: [facility] 07-06-2022 14:21-0500 Heart rate 74 /min Julianne Sandss DO Work Phone: [facility] 07-06-2022 14:21-0500 Respiratory rate 17 /min Julianne Sansds DO Work Phone: [facility] 07-06-2022 14:21-0500 SaO2% (BldA) [Mass fraction] 97 % Julianne Sandss DO Work Phone: [facility] 07-06-2022 14:21-0500 Systolic blood pressure 130 mm[Hg] Julianne Sandss DO Work Phone: [facility] 07-06-2022 09:12-0500 Body height 165.1 cm Julianne Sandss DO Work Phone: [facility] 07-06-2022 09:12-0500 Body mass index (BMI) [Ratio] 26.79 kg/m2 Julianne Sandss DO Work Phone: [facility] 07-06-2022 09:12-0500 Body weight 73.03 kg Julianne Joya DO Work Phone: [facility] Encounters Encounter Date Encounter Type Care Provider Facility Start: 02-27-2025 End: 02-27-2025 ambulatory Michelle Veras MD Work Phone: -Laboratory [facility] Start: 02-27-2025 End: 02-27-[address] Michelle Veras MD -Laboratory [facility] Start: 02-27-2025 End: 02-27-2025 ambulatory Michelle Veras Facility:[facility] Start: 12-10-2024 Non-patient / Non-visit Dr. Suzanne garces MD -[facility] Work Phone: Start: 11-06-2024 End: 11-06-2024 ambulatory Michelle Veras MD Work Phone: [facility] Work Phone: Start: 11-06-2024 End: 11-06-[address] Michelle Veras MD -Cat Scan [facility] Work Phone: Start: 11-06-2024 End: 11-06-2024 ambulatory Michelle Eda Facility:[facility] Start: 10-09-2024 End: 10-09-[address] Suzanne Littlejohn MD -Radiology [facility] Work Phone: Start: 10-09-2024 End: 10-09-2024 ambulatory Suzanne Littlejohn Facility:[facility] Start: 10-03-2024 End: 10-03-2024 ambulatory Michelle Veras MD Work Phone: [facility] Work Phone: Start: 10-03-2024 End: 10-03-[address] Michelle Veras MD -Radiology, [facility] Work Phone: Start: 10-03-2024 End: 10-03-2024 ambulatory Michelle Veras Facility:[facility] Start: 08-13-2024 End: 08-13-2024 ambulatory Michelle Veras MD Work Phone: [facility] Work Phone: Start: 08-13-2024 End: 08-13-[address] Micehlle Veras MD -Outpatient Bone Densitometry Work Phone: Start: 08-13-2024 End: 08-13-2024 ambulatory Michelle Veras Facility:[facility] Start: 09-07-2023 Telephone encounter Christina Francisco MD Work Phone: [facility] Comment on above: Test Scheduling Start: 08-28-2023 End: 08-28-2023 ambulatory [facility] Work Phone: Start: 08-28-2023 End: 08-28-2023 Patient encounter procedure [facility]-Radiology, [facility] Work Phone: Start: 08-10-2023 End: 08-10-2023 Admission to same day surgery center [facility]-Surgical Day Care Start: 08-10-2023 End: 08-10-2023 ambulatory [facility] Work Phone: Start: 07-26-2023 End: 07-26-2023 ambulatory [facility] Work Phone: Start: 07-26-2023 End: 07-26-2023 Patient encounter procedure [facility]-Radiology, [facility] Work Phone: Start: 07-09-2023 Evaluation and management of inpatient SILVANO SCOTT Facility:[facility] Start: 07-09-2023 End: 07-09-2023 Emergency department patient visit [facility]-Emergency Department Work Phone: Start: 06-26-2023 End: 06-26-2023 ambulatory [facility] Work Phone: Start: 06-26-2023 End: 06-26-2023 Patient encounter procedure [facility]-Radiology, [facility] Work Phone: Start: 06-15-2023 Orders Only Christina seymour MD Work Phone: [facility] Infection Control Comment on above: Medication side effe ct (Primary Dx) Start: 06-09-2023 Telephone encounter Sandro Parikh Work Phone: [facility] Comment on above: Orders Start: 05-30-2023 Telephone encounter João mars MD Work Phone: [facility] U[facility] Comment on above: Surgery Scheduling ( Insurance) Start: 05-24-2023 End: 05-24-2023 ambulatory JOÃO VILLA [facility] Start: 05-24-2023 End: 05-24-2023 Office outpatient visit 25 minutes João Villa MD Work Phone: [facility] Urology Comment on above: Kidney stone on left side (Primary Dx); Dysuria; Hydronephrosis with renal and ureteral calculous obstruction Start: 05-18-2023 ambulatory Bonita Strickland RN [facility] Clinical Communication Start: 05-18-2023 Patient encounter procedure Bonita Strickland RN [facility] Clinical Communication Start: 05-16-2023 Refill Sandro Kerr MD Work Phone: [facility] Comment on above: Onychomycosis Start: 05-12-2023 Telephone encounter João mars MD Work Phone: [facility] Urology Comment on above: call patient Start: 05-10-2023 End: 05-11-2023 Emergency department patient visit PA Julián [place] [facility] Start: 05-10-2023 Telephone encounter João mars MD Work Phone: [facility] Clinical Communication Start: 04-05-2023 End: 04-05-2023 ambulatory MANGO AHUJA [facility] Start: 04-05-2023 End: 04-05-2023 Office outpatient visit 15 minutes Mango Ahuja MD Work Phone: [facility] Comment on above: Onychomycosis (Prima ry Dx); Adverse effect of terbinafine Onychomycosis (Prima ry Dx); Therapeutic drug monitoring Start: 03-27-2023 Telephone encounter Sandro Parikh Work Phone: [facility] Comment on above: Medication Problem Start: 03-16-2023 End: 03-16-2023 ambulatory SARAH MCFARLANE [facility] Start: 03-16-2023 End: 03-16-2023 Office outpatient visit 10 minutes Sarah Mcfarlane MD Work Phone: [facility] Comment on above: Onychomycosis (Prima ry Dx) Start: 03-08-2023 Telephone encounter João mars MD Work Phone: [facility] Urology Comment on above: Appointment Request (Pt missed appt for 02.23 and would like to r/s appt. Please call her The appt was for *Follow up in about 6 months (around 02/22/2023) for stone follow up (KUB/CONSUELO prior). ) Start: 03-06-2023 End: 03-06-2023 ambulatory NIYAH FREEMAN [facility] Start: 03-06-2023 End: 03-06-2023 Office outpatient visit 15 minutes Niyah Freeman DRY CELL TESTER - TIME PIECE REPAIRER Work Phone: [facility] Pulmonary and Sleep Medicine Comment on above: Pulmonary nodules (P rimary Dx); History of hemoptysis Start: 02-15-2023 End: 02-16-2023 ambulatory JULIANNE JOYA [facility] Start: 02-15-2023 End: 02-15-2023 Subsequent hospital visit by physician Julianne Joya DO Work Phone: [facility] Comment on above: Kidney stone on left side Start: 02-14-2023 End: 02-14-2023 ambulatory SANDRO KERR [facility] Start: 02-14-2023 End: 02-14-2023 Office outpatient visit 15 minutes Sandro Kerr MD Work Phone: [facility] Comment on above: Multiple lung nodule s (Primary Dx); Benign paroxysmal positional vertigo of right ear; Onychomycosis Start: 02-13-2023 Telephone encounter Darshan guerrero MD Work Phone: [facility] Clinical Communication Comment on above: Appointment Start: 02-12-2023 Telephone encounter João mars MD Work Phone: [facility] Urology Comment on above: Cancelled Appointmen t (Pt started a new job and needs to cx and r/s appt for 02.23.23. Please call to r/s ) Start: 01-16-2023 End: 01-16-2023 ambulatory SARAH MCFARLANE [facility] Start: 01-16-2023 End: 01-16-2023 Office outpatient visit 15 minutes Sarah Mcfarlane MD Work Phone: [facility] Comment on above: Multiple lung nodule s (Primary Dx); Liver lesion; Acute bilateral low back pain without sciatica Start: 01-11-2023 End: 01-11-2023 Patient encounter procedure PA Julián GONZALEZ Work Phone: [facility] Work Phone: Start: 12-30-2022 End: 12-31-2022 ambulatory SONNY SCHMITZ [facility] Start: 11-25-2022 Telephone encounter Suly Parker MD Work Phone: [facility] Comment on above: Medication Check Start: 11-22-2022 Telephone encounter Suly Parker MD Work Phone: [facility] Start: 11-18-2022 Telephone encounter Suly Parker MD Work Phone: [facility] Start: 11-16-2022 End: 11-17-2022 ambulatory [facility] Start: 11-16-2022 End: 11-16-2022 ambulatory [facility] Start: 11-16-2022 End: 11-16-2022 Subsequent hospital visit by physician Mango Ahuja MD Work Phone: [facility] X-ray Imaging Comment on above: Hemoptysis Start: 11-16-2022 End: 11-16-2022 Office outpatient visit 15 minutes Mango Ahuja MD Work Phone: [facility] Comment on above: Hemoptysis (Primary Dx); Colon cancer screening; Osteoporosis, unspecified osteoporosis type, unspecified pathological fracture presence Start: 10-27-2022 Telephone encounter Suly Parker MD Work Phone: [facility] Start: 10-25-2022 End: 10-25-2022 ambulatory TYESHA CARRASCO [facility] Start: 09-15-2022 Telephone encounter Suly Parker MD Work Phone: [facility] Comment on above: Med Refill Start: 08-22-2022 End: 08-22-2022 Patient encounter procedure Julianne Joya DO Work Phone: [facility] Urology Comment on above: Kidney stone on left side (Primary Dx) Start: 08-16-2022 End: 08-16-2022 Subsequent hospital visit by physician [facility] Surgery Urology Room 17 [facility]Ray Comment on above: Arrived Start: 08-16-2022 End: 08-16-2022 Subsequent hospital visit by physician Julianne Joya DO Work Phone: [facility] Start: 08-05-2022 End: 08-05-2022 Office outpatient visit 25 minutes Aiyana Moss DRY CELL TESTER - TIME PIECE REPAIRER Work Phone: [facility] Cardiology Comment on above: LV dysfunction (Prim antony Dx); Palpitations; Paroxysmal atrial fibrillation (CMS/HCC) (HCC) Start: 07-31-2022 ambulatory Julianne silva DO Work Phone: [facility] [place] Start: 07-29-2022 End: 07-29-2022 Office outpatient visit 25 minutes Tyesha Carrasco MD Work Phone: [facility] Comment on above: Encounter for medica l examination to establish care (Primary Dx); Hearing aid fitting or adjustment; History of right mastoidectomy; Paroxysmal A-fib (CMS/HCC) ([facility]); Diastolic heart failure, unspecified HF chronicity (HCC) Start: 07-29-2022 End: 07-29-2022 Patient encounter status Tyesha Carrasco MD Work Phone: [facility] Start: 07-21-2022 Telephone encounter Jesus mix DRY CELL TESTER - TIME PIECE REPAIRER Work Phone: [facility] Urology Comment on above: Release of Informati on Surgery Scheduling Start: 07-20-2022 ambulatory Jesus Cabello DRY CELL TESTER - TIME PIECE REPAIRER Work Phone: [facility] Urology Start: 07-17-2022 End: 07-23-2022 Evaluation and management of inpatient Cody Norton MD Work Phone: [facility] Comment on above: Urinary tract infect ion without hematuria, site unspecified (Primary Dx); Ureteral stent present; Calculus of ureter; Paroxysmal atrial fibrillation (CMS/HCC) (HCC); PVC (premature ventricular contraction); Kidney stone on left side Start: 07-06-2022 End: 07-06-2022 Subsequent hospital visit by physician Julianne Joya DO Work Phone: [facility] MA[facility] OR Comment on above: Kidney stone on left side (Primary Dx) Start: 06-26-2022 ambulatory Julianne silva DO Work Phone: [facility] [place] Start: 06-17-2022 Telephone encounter Julianne Joya DO Work Phone: [facility] Comment on above: returning a missed c all from the office Start: 06-14-2022 Telephone encounter Julianne Joya DO Work Phone: [facility] [place] Comment on above: Missed call from the office Start: 06-07-2022 Telephone encounter Julianne Joya DO Work Phone: [facility] Comment on above: Surgery Scheduling Start: 05-17-2022 Telephone encounter João mars MD Work Phone: [facility] [place] Comment on above: Appointment Start: 04-21-2022 End: 04-21-2022 Emergency department patient visit AUTUMN COHN PA-C Facility:A Procedures Date Procedure Procedure Detail Performing Clinician Start: 02-27-2025 Vitamin D, 25-hydrox y measurement Michelle Veras MD Work Phone: Comment on above: Vitamin D StatusDefi ciency: <20 ng/mL (50nmol/L)Insufficiency: 20-30 ng/mL (50-75 nmol/L)Sufficiency: 30-100 ng/mL (75-250 nmol/L)Toxicity: >100 ng/mL (>250 nmol/L) Start: 11-06-2024 CT of chest without contrast Michelle Veras MD Work Phone: Start: 10-09-2024 Plain X-ray abdomen Liberty Veras MD Work Phone: Start: 10-03-2024 Plain X-ray of shoulder Michelle Veras MD Work Phone: Start: 08-13-2024 Dual energy X-ray absorptiometry Michelle Veras MD Work Phone: Start: 08-28-2023 Diagnostic radiograp hy of abdomen Start: 08-10-2023 Extracorporeal shock wave lithotripsy Start: 07-26-2023 Diagnostic radiograp hy of abdomen Start: 07-09-2023 CT of abdomen and pe lvis without contrast Start: 06-26-2023 Diagnostic radiograp hy of abdomen Start: 05-10-2023 CT of abdomen and pe lvis without contrast CARLOS GONZALEZ Work Phone: Start: 02-15-2023 Us retroperitoneal r eal time w/image complete Julianne Joya DO Work Phone: Start: 11-30-2022 Basic metabolic pane l calcium total Suly Parker MD Work Phone: Start: 08-16-2022 FL GUIDANCE OR USE O NLY - NON-RESULTABLE Julianne Sandss DO Work Phone: Start: 08-16-2022 End: 08-16-2022 Cysto bladder w/ureteral catheterization Julianne Sandss DO Work Phone: Start: 08-16-2022 End: 08-16-2022 Cysto w/ureteroscopy w/lithotripsy Julianne Joya DO Work Phone: Start: 08-06-2022 Ecg routine ecg w/le ast 12 lds w/i&r Reese Winslow MD Work Phone: Start: 08-05-2022 Ecg routine ecg w/le ast 12 lds trcg only w/o i&r Reese Winslow MD Work Phone: Start: 07-29-2022 H/O: surgery History of rig ht mastoidectomy Tyesha Carrasco MD Work Phone: Start: 07-29-2022 Adult depression screening assessment Mango Ahuja MD Work Phone: Start: 07-23-2022 Basic metabolic pane l calcium total Luis Alfredo Butler MD Work Phone: Start: 07-22-2022 Basic metabolic pane l calcium total Luis Alfredo Butler MD Work Phone: Start: 07-21-2022 Basic metabolic pane l calcium total Luis Alfredo Butler MD Work Phone: Start: 07-20-2022 Ct abdomen & pelvis w/o contrast material Jesus Cabello [facility] Work Phone: Start: 07-20-2022 Ecg routine ecg w/le ast 12 lds trcg only w/o i&r Aiyana Moss [facility] Work Phone: Start: 07-20-2022 Basic metabolic pane l calcium total Velvet Isbell SEAMAN Work Phone: Start: 07-19-2022 TTE w or wo fol wcon,Doppler Tavon Cox MD Work Phone: Start: 07-19-2022 Basic metabolic pane l calcium total Velvet Isbell SEAMAN Work Phone: Start: 07-19-2022 Ecg routine ecg w/le ast 12 lds trcg only w/o i&r Tavon Cox MD Work Phone: Start: 07-19-2022 Bacteria identified in Blood by Culture Velvet Isbell SEAMAN Work Phone: Start: 07-19-2022 Ecg routine ecg w/le ast 12 lds trcg only w/o i&r Piyush Pedersen MD Work Phone: Start: 07-19-2022 End: 07-19-2022 Basic metabolic panel calcium total Blessing Escalera DRY CELL TESTER Fididel Work Phone: Start: 07-18-2022 Ecg routine ecg w/le ast 12 lds trcg only w/o i&r Stacey Carter DO Work Phone: Start: 07-18-2022 Culture bacterial quanttative colony count urine Silvana Jain DRY CELL TESTER - TIME PIECE REPAIRER Work Phone: Start: 07-18-2022 Urinalysis complete panel - Urine Silvana Jain DRY CELL TESTER - TIME PIECE REPAIRER Work Phone: Start: 07-18-2022 Basic metabolic pane l calcium total Silvana Jain DRY CELL TESTER [employer] Work Phone: Start: 07-17-2022 Culture bacterial quanttative colony count urine Venus Parada PA Work Phone: Start: 07-17-2022 Urinalysis complete panel - Urine Venus John Paul Tilleyas PA Work Phone: Start: 07-17-2022 Bacteria identified in Blood by Culture Venus Parada PA Work Phone: Start: 07-17-2022 BLOOD CULTURE IDENTIFICATION - AEROBIC Venus John Paul Tillyeas PA Work Phone: Start: 07-17-2022 Comprehensive metabo lic panel Venus John Paul Tilleyas PA Work Phone: Start: 07-17-2022 Radiologic exam abdo men 1 view Venus John Paul Tilleyas PA Work Phone: Start: 07-17-2022 Ecg routine ecg w/le ast 12 lds trcg only w/o i&r Cody Norton MD Work Phone: Plan of Treatment Date Care Activity Detail Author Start: 03-21-2024 Creatinine measurement Creatinine Level [facility] Start: 03-21-2024 Potassium measurement Potassium Level [facility] Start: 02-15-2024 Hepatitis A Vaccines (1 of 2 - Risk 2-dose series) Hepatitis A Vaccines (1 of 2 - Risk 2-dose series) [facility] Comment on above: Postponed from 1965 (Patient Refus ed) Start: 02-15-2024 Hepatitis B Vaccines (1 of 3 - Risk 3-dose series) Hepatitis B Vaccines (1 of 3 - Risk 3-dose series) [facility] Comment on above: Postponed from 2006 (Patient Refus ed) Start: 02-15-2024 Hepatitis C screening Hepatitis C Screening [facility] Comment on above: Postponed from 1964 (Patient Refus ed) Start: 02-15-2024 Pneumococcal Vaccine: 65+ Years (1 - PCV) Pneumococcal Vaccine: 65+ Years (1 - PCV) [facility] Comment on above: Postponed from 1952 (Patient Refus ed) Start: 02-15-2024 Pneumococcal Vaccine: 65+ Years (1 of 2 - PCV) Pneumococcal Vaccine: 65+ Years (1 of 2 - PCV) [facility] Comment on above: Postponed from 1952 (Patient Refus ed) Start: 02-15-2024 Screening for osteoporosis Bone Density Scan [facility] Comment on above: Postponed from 1946 (Patient Refus ed) Start: 02-11-2024 Influenza vaccination Influenza Vaccine (Season Ended) [facility] Start: 12-10-2023 Influenza vaccination Influenza Vaccine (#1) [facility] Comment on above: Postponed from 02/10/2023 (Patient Refus ed) Start: 12-01-2023 Creatinine measurement Creatinine Level [facility] Start: 12-01-2023 Potassium measurement Potassium Level [facility] Start: 11-25-2023 Medicare Advantage Annual Wellness Visit (AWV) Medicare Advantage Annual Wellness Visit (AWV) [facility] Start: 10-26-2023 Creatinine measurement Creatinine Level [facility] Start: 10-26-2023 Potassium measurement Potassium Level [facility] Start: 08-10-2023 Anes lithotrp xtrcorp shock wave w/o water bath ANESTH KIDNEY STONE DESTRUCT [facility] Start: 08-10-2023 Lithotripsy xtrcorp shock wave FRAGMENTING OF KIDNEY STONE [facility] Start: 08-10-2023 Patient discharge [facility] Start: 07-29-2023 Depression Screening Depression Screening [facility] Start: 07-23-2023 Creatinine measurement Creatinine Level [facility] Start: 07-23-2023 Potassium measurement Potassium Level [facility] Start: 07-19-2023 Echocardiography Echocardiogram [facility] Start: 06-15-2023 End: 06-15-2024 Hepatic function 1999 panel - Serum or Plasma Hepatic function panel Lab Routine Medication side effect Expected: 06/15/2023 (Approximate), Expires: 06/15/2024 [employer] Work Phone: Comment on above: Expected: 06/15/2023 (Approximate), Expi res: 06/15/2024 Start: 06-12-2023 Medicare Advantage Annual Wellness Visit Medicare Advantage Annual Wellness Visit [facility] Start: 06-08-2023 End: 06-08-2023 Patient encounter procedure 06/08/2023 4:15 PM EST Office Visit [address] [phone] Christina Francisco MD [address] [place] [address] [facility] Start: 05-24-2023 End: 05-24-2023 Patient encounter procedure 05/24/2023 3:50 PM EST Office Visit [facility] [address] [place] [phone] João Villa MD [address] [place] [address] [facility] Start: 05-10-2023 [facility] Start: 05-06-2023 End: 04-05-2024 Hepatic function 2000 panel - Serum or Plasma [facility] Work Phone: Comment on above: Expected: 05/06/2023 (Approximate), Expi res: 04/05/2024 Start: 04-12-2023 End: 04-12-2023 Patient encounter procedure 04/12/2023 3:40 PM EDT Office Visit [facility] [address] [place] [phone] João Villa MD [address] [place] [address] [facility] Start: 04-05-2023 End: 04-05-2023 Patient encounter procedure 04/05/2023 3:15 PM EDT Office Visit [address] [phone] Christina Francisco MD [address] [place] [address] [facility] Start: 03-16-2023 End: 03-16-2023 Patient encounter procedure 03/16/2023 4:15 PM EDT Office Visit [address] [phone] Peter Patrick MD [address] [place] [address] [facility] Start: 03-16-2023 End: 02-15-2024 Comprehensive metabolic 1998 panel - Serum or Plasma Comprehensive metabolic panel Lab Routine Onychomycosis Expected: 03/16/2023 (Approximate), Expires: 02/15/2024 [facility] Work Phone: Comment on above: Expected: 03/16/2023 (Approximate), Expi res: 02/15/2024 Start: 03-06-2023 End: 03-06-2023 Patient encounter procedure 03/06/2023 2:40 PM EDT Office Visit [facility] [address] [place] [phone] Niyah Freeman, ANGEL - TIME PIECE REPAIRER [address] [place] [address] [facility] Start: 02-23-2023 End: 02-23-2023 Patient encounter procedure [facility] Start: 02-22-2023 End: 08-23-2023 US Retroperitoneum US retroperitoneum Imaging Routine Kidney stone on left side Expected: 02/22/2023, Expires: 08/23/2023 [facility] Comment on above: Expected: 02/22/2023, Expires: Start: 02-22-2023 End: 08-23-2023 XR Abdomen Single view XR abdomen 1 view Imaging Routine Kidney stone on left side Expected: 02/22/2023, Expires: 08/23/2023 [facility] Work Phone: Comment on above: Expected: 02/22/2023, Expires: Start: 02-15-2023 Subsequent hospital visit by physician 02/15/2023 3:00 PM EDT Hospital Encounter [facility] [address] [place] [phone] Julianne Joya, [address] [facility] [address] [place] [address] [facility] Start: 02-14-2023 End: 02-14-2023 Patient encounter procedure 02/14/2023 3:15 PM EDT Office Visit [address] [phone] Sandro Kerr MD [address] [place] [id number] [facility] Start: 02-14-2023 End: 02-14-2023 Patient encounter procedure [facility] Start: 02-10-2023 COVID-19 Vaccine ( season) COVID-19 Vaccine () [facility] [facility] Start: 02-10-2023 Influenza vaccination [facility] Start: 01-16-2023 End: 01-16-2024 US Abdomen limited US abdomen limited Imaging Routine Liver lesion Expected: 01/16/2023, Expires: 01/16/2024 [facility] Work Phone: Comment on above: Expected: 01/16/2023, Expires: Start: 12-30-2022 End: 12-30-2022 Patient encounter procedure [facility] CT Imaging Start: 11-30-2022 End: 11-30-2022 Patient encounter procedure 11/30/2022 2:45 PM EDT Office Visit [facility] [address] [place] [id number] Kimberly Cespedes MD [address] [place] [address] [facility] Start: 11-04-2022 End: 11-04-2022 Patient encounter procedure 11/04/2022 Office Visit Cardiology Reese Winslow MD [address] [facility] [address] [place] [address] [facility] Cardiology Start: 10-26-2022 End: 10-26-2022 Patient encounter procedure 10/26/2022 Office Visit Family Medicine Suly Parker MD [address] [place] [address] [facility] Start: 10-25-2022 End: 10-25-2022 Patient encounter procedure 10/25/2022 Office Visit Family Medicine Suly Parker MD [address] [place] [address] [facility] Start: 08-23-2022 End: 08-23-2022 Patient encounter procedure 08/23/2022 Office Visit Otolaryngology Pineda Puckett MD [address] [facility] [address] [place] [address] [facility] ENT Start: 08-22-2022 End: 08-22-2022 Patient encounter procedure 08/22/2022 Procedure Visit Urology Julianne Joya, DO [address] [place] [address] [facility] Start: 08-16-2022 End: 08-16-2022 Admission to same day surgery center 08/16/2022 Surgery Procedural Katie Joyabeth Zafar, DO [address] [place] [address] CYSTOSCOPY AND RETROGRADE PYELOGRAM, LEFT URETEROSCOPY LASER LITHOTRIPSY, LEFT URETERAL STENT CHANGE [36370 (CPT )] [facility] MAIN OR Comment on above: CYSTOSCOPY AND RETROGRADE PYELOGRAM, LEF T URETEROSCOPY LASER LITHOTRIPSY, LEFT URETERAL STENT CHANGE [78842 (CPT )] Start: 08-16-2022 End: 08-16-2022 Anesthesia consultation 08/16/2022 Anesthesia Event Procedural Cathleen Sexton RN [facility] MAIN OR Start: 08-16-2022 End: 08-16-2022 Cysto bladder w/ureteral catheterization CYSTOSCOPY AND PYELOGRAM Calculus of kidney Calculus of ureter 08/16/2022 2:00 PM EST [facility] Operating Room Start: 08-16-2022 End: 08-16-2022 Cysto w/insert ureteral stent CYSTOSCOPY WITH INSERTION URETERAL STENT Calculus of kidney Calculus of ureter 08/16/2022 2:00 PM EST [facility] Operating Room Start: 08-16-2022 End: 08-16-2022 Cysto w/ureteroscopy w/lithotripsy CYSTOSCOPY WITH URETEROSCOPY AND OR PYELOSCOPY WITH REMOVAL OR MANIPULATION CALCULUS WITH LITHOTRIPSY Calculus of kidney Calculus of ureter 08/16/2022 2:00 PM EST [facility] Operating Room Start: 08-16-2022 Subsequent hospital visit by physician 08/16/2022 Hospital Encounter Procedural CortneyJulianne DO [address] [place] [address] [facility] MAIN OR Start: 08-09-2022 End: 08-09-2022 Patient encounter procedure 08/09/2022 Office Visit Otolaryngology Pineda Puckett MD [address] [facility] [address] [place] [address] [facility] E[facility] Start: 08-05-2022 End: 09-16-2022 US Heart Transthoracic Transthoracic echocardiogram (TTE) limited with contrast, bubble, strain, and 3D PRN CV Echocardiography Routine LV dysfunction Expected: 08/05/2022 (Approximate), Expires: 09/16/2022 [place] Work Phone: Comment on above: Expected: 08/05/2022 (Approximate), Expi res: 09/16/2022 Start: 08-05-2022 End: 08-05-2022 Patient encounter procedure 08/05/2022 Office Visit Cardiology Aiyana Moss, DRY CELL TESTER - TIME PIECE REPAIRER [address] [facility], [address] [place] [address] [facility] Start: 08-02-2022 End: 08-02-2022 Admission to same day surgery center 08/02/2022 Surgery Procedural Julianne Joya, DO [address] [place] [address] CYSTOSCOPY AND RETROGRADE PYELOGRAM, LEFT URETEROSCOPY LASER LITHOTRIPSY, LEFT URETERAL STENT CHANGE [49105 (CPT )] [facility] MAIN OR Comment on above: CYSTOSCOPY AND RETROGRADE PYELOGRAM, LEF T URETEROSCOPY LASER LITHOTRIPSY, LEFT URETERAL STENT CHANGE [58612 (CPT )] Start: 08-02-2022 End: 08-02-2022 Anesthesia consultation 08/02/2022 Anesthesia Event Procedural Cathleen Sexton RN [facility] MAIN OR Start: 08-02-2022 End: 08-02-2022 Cysto bladder w/ureteral catheterization CYSTOSCOPY AND PYELOGRAM Calculus of kidney Calculus of ureter 08/02/2022 12:00 PM EST [facility] Operating Room Start: 08-02-2022 End: 08-02-2022 Cysto w/insert ureteral stent CYSTOSCOPY WITH INSERTION URETERAL STENT Calculus of kidney Calculus of ureter 08/02/2022 12:00 PM EST [facility] Operating Room Start: 08-02-2022 End: 08-02-2022 Cysto w/ureteroscopy w/lithotripsy CYSTOSCOPY WITH URETEROSCOPY AND OR PYELOSCOPY WITH REMOVAL OR MANIPULATION CALCULUS WITH LITHOTRIPSY Calculus of kidney Calculus of ureter 08/02/2022 12:00 PM EST [facility] Operating Room Start: 08-02-2022 Subsequent hospital visit by physician 08/02/2022 Hospital Encounter Procedural Julianne Joya, DO [address] [place] [address] [facility] MAIN OR Start: 07-29-2022 End: 07-29-2022 Patient encounter procedure 07/29/2022 Office Visit Family Medicine Suly Parker MD [address] [place] [address] [facility] Start: 07-27-2022 End: 07-27-2022 Patient encounter procedure 07/27/2022 Procedure Visit Urology Julianne Joya, DO [address] [place] [address] [facility] [place] Start: 07-20-2022 End: 07-06-2023 XR Abdomen Single view XR abdomen 1 view Imaging Routine Kidney stone on left side Expected: 07/20/2022, Expires: 07/06/2023 [facility] Work Phone: Comment on above: Expected: 07/20/2022, Expires: Start: 07-06-2022 End: 07-06-2022 Admission to same day surgery center 07/06/2022 Surgery Procedural Julianne Joya, DO [address] [place] [address] CYSTOSCOPY, RIGHT RETROGRADE PYELOGRAM, LEFT EXTRACORPORAL SHOCKWAVE LITHOTRYPSY ESWL [98990 (CPT )] [facility] MAIN OR Comment on above: CYSTOSCOPY, RIGHT RETROGRADE PYELOGRAM, LEFT EXTRACORPORAL SHOCKWAVE LITHOTRYPSY ESWL [57347 (CPT )] Start: 07-06-2022 End: 07-06-2022 Cysto bladder w/ureteral catheterization [facility] Operating Room Start: 07-06-2022 End: 07-06-2022 Lithotripsy xtrcorp shock wave [facility] Operating Room Start: 07-06-2022 Subsequent hospital visit by physician 07/06/2022 Hospital Encounter Procedural Katie Joyabeabhijit Stephen, DO [address] [place] [address] [facility] MAIN OR Start: 06-29-2022 End: 06-29-2022 Admission to establishment 06/29/2022 Pre-Admission Testing Pre-Admission Testing [facility] Pre-Admit Testing Start: 02-10-2022 Influenza vaccination Influenza Vaccine (#1) [facility] Start: 10-14-2011 Pneumococcal Vaccine: 65+ Years (1 - PCV) Pneumococcal Vaccine: 65+ Years (1 - PCV) [facility] Start: 2006 Hepatitis B Vaccines (1 of 3 - Risk 3-dose series) Hepatitis B Vaccines (1 of 3 - Risk 3-dose series) [facility] Start: 2006 RSV Immunization aged 60 or older (1 - 1-dose 60+ series) RSV Immunization aged 60 or older (1 - 1-dose 60+ series) [facility] Start: 1996 Zoster Vaccines (1 of 2) Zoster Vaccines (1 of 2) [facility] Start: 1965 DTaP/Tdap/Td Vaccines (1 - Tdap) DTaP/Tdap/Td Vaccines (1 - Tdap) [facility] Start: 1965 Hepatitis A Vaccines (1 of 2 - Risk 2-dose series) Hepatitis A Vaccines (1 of 2 - Risk 2-dose series) [facility] Start: 1964 Diabetes mellitus screening Diabetes Screening [facility] Start: 1964 Hepatitis C screening Hepatitis C Screening [facility] Start: 1953 DTaP/Tdap/Td Vaccines (1 - Tdap) DTaP/Tdap/Td Vaccines (1 - Tdap) [facility] Start: 1952 Pneumococcal Vaccine: 65+ Years (1 - PCV) Pneumococcal Vaccine: 65+ Years (1 - PCV) [facility] Start: 04-15-1947 COVID-19 Vaccine (#1) COVID-19 Vaccine (#1) [facility] Start: 1945 Hepatitis B Vaccines (1 of 3 - 3-dose series) Hepatitis B Vaccines (1 of 3 - 3-dose series) [facility] Start: 1945 Medicare Advantage Annual Wellness Visit (AWV) Medicare Advantage Annual Wellness Visit (AWV) [facility] Start: 1945 Screening for malignant neoplasm of colon [facility] Start: 1945 Screening for osteoporosis Bone Density Scan [facility] End: 07-19-2022 Bacteria identified in Blood by Culture [facility] Work Phone: Comment on above: Once (Lab) for 1 Occurrences starting until 07/19/2022 End: 07-22-2022 Clostridioides difficile toxin genes [Presence] in Stool by RUTH with probe detection C. DIFFICILE by PCR with Reflex to EIA Microbiology Routine Once (Lab) for 1 Occurrences starting 07/22/2022 until 07/22/2022 [facility] Work Phone: Comment on above: Once (Lab) for 1 Occurrences starting until 07/22/2022 ECG 12 lead - CLINIC PERFORMED ECG 12 lead - CLINIC PERFORMED CV ECG Routine Palpitations 08/05/2022 9:07 AM EST [facility] Work Phone: OUTSIDE PROCEDURE SCAN OUTSIDE P ROCEDURE SCAN Procedures Ordered: 02/14/2023 [facility] Comment on above: Ordered: 02/14/2023 Patient Education [facility] Work Phone: Patient referral [facility] Work Phone: End: 11-16-2022 XR Chest 2 Views [facility] Work Phone: Comment on above: Once for 1 Occurrences starting 11/17/19 23 until 11/16/2022 Payers Date Payer Category Payer Self-pay 2024 Private Health Insurance [facility] [id number] 2023 Unknown [id number] 2019 Medicare [id number] 2019 Private Health Insurance [id number] 1945 Unknown [id number] Medicaid MEDICAID [id number] Medicare MEDICARE PART A B [id number] Unknown [id number] Unknown [id number] Unknown [id number] Unknown [id number] Unknown [id number] Social History Date Type Detail Facility Start: 06-29-2022 End: 01-11-2024 Tobacco smoking status NHIS Never smoked tobacco [facility] Start: 06-29-2022 Tobacco use and exposure Smoke less tobacco non-user [facility] Start: 07-18-2022 End: 08-22-2022 Alcohol intake Lifetime non-drinker (finding) [facility] Start: 07-18-2022 End: 07-29-2022 History SDOH Alcohol Frequency 1 [facility] Start: 05-16-2022 End: 07-18-2022 History SDOH Alcohol Std Drinks 0 [facility] Start: 07-29-2022 History SDOH Financial 4 [facility] Start: 06-29-2022 History SDOH Transpo rt Med 2 [facility] Start: 1945 Sex Assigned At Not on file [facility] Start: 05-28-2022 End: 03-06-2023 Exposure to SARS-CoV-2 (event) Not sure [facility] Start: 06-29-2022 End: 10-25-2022 History of Social function [facility] Start: 06-29-2022 End: 10-25-2022 Alcohol Use Disorder Identification Test - Consumption [AUDIT-C] [facility] How often to you hav e a drink containing alcohol? Monthly or less [facility] How many standard dr inks containing alcohol do you have on a typical day? 1 or 2 [facility] How often do you hav e 6 or more drinks on 1 occasion? Never [facility] How hard is it for y ou to pay for the very basics like food, housing, medical care, and heating Not very hard [facility] (I/We) worried olman er (my/our) food would run out before (I/we) got money to buy more. Never true [facility] In the past 12 month s, has lack of transportation kept you from medical appointments or from getting medications? No [facility] In the past 12 month s, was there a time when you were not able to pay the mortgage or rent on time? No [facility] Start: 05-10-2023 End: 08-09-2023 Tobacco smoking status NHIS Tobacco smoking consumption unknown [facility] Start: 1945 Sex Assigned At Female [facility] Start: 08-25-2024 End: 10-07-2024 Sex Female (finding) [facility] NEGATED: Highlighted row [facility] Medical Equipment Procedure Code Equipment Code Equipment Origin al Text Equipment Identifier Dates Stent Uret 6fr 2 4cm [facility] - Sn/A - [id number] Start: 07-06-2022 Stent Uret 6fr 2 4cm [facility] - [id number] FDA Start: 08-16-2022 Goals Date Patient Goal Desired Activity /State Functional Status Date Assessment Result Facility 08-10-2023 Functional status Ambulates [facility] Work Phone: Mental Status Date Assessment Result Facility 08-10-2023 Cognitive function Voice/Name [facility] Work Phone: Clinical Notes 05-17-2022 to 11-09-2024 Telephone Encounter - Judd Cloud - 09/07/2023 9:16 AM EDTTelephone Encounter - Judd Cloud - 09/07/2023 9:16 AM EDT Note Date & Type Note Facility 11-09-2024 Radiology Diagnostic study note [facility] Imaging Services [address] [address] Chest without Contrast MR#: [id number] Acct: [id number] Name: YASH FRANCOIS NOVEMBER Rep #: [id number] : 1945 F 79 From: Pamella Niño MD PCP: Dr. Michelle Veras MD Status: REG CL I Study:Chest without Contrast Date of Exam: 11/06/24 Exam# [id number] Ordering Dr: Liberty Veras MD EXAM: CT Chest Without Intravenous Contrast CLINICAL INDICATION: LUNG NODULE TECHNIQUE: Axial computed tomography images of the chest without intravenous contrast. This CT exam was performed using one or more of the following dose reduction techniques: automated exposure control, adjustment of the mA and/or kV according to patient size, and/or use of iterative reconstruction technique. COMPARISON: No relevant prior studies available. FINDINGS: LUNGS AND PLEURAL SPACES: Mild lung emphysema/COPD. Dependent atelectasis, bilaterally. No suspicious pulmonary nodules. No significant effusion. No pneumothorax. HEART: Unremarkable. No cardiomegaly. No significant pericardial effusion. No significant coronary artery calcifications. MEDIASTINUM: A few prominent mediastinal lymph nodes measuring up to 6 mm. Small esophageal hiatal hernia. BONES/JOINTS: Unremarkable. No acute fracture. SOFT TISSUES: Unremarkable. VASCULATURE: Scattered calcified atherosclerotic disease of aorta. No thoracicaortic aneurysm. LYMPH NODES: See above. KIDNEYS AND URETERS: Partially visualized right nephrolithiasis. CT/Chest without Contrast IMPRESSION: 1. Mild lung emphysema/COPD. Dependent atelectasis, bilaterally. No suspicious pulmonary nodules. 2. Small esophageal hiatal hernia. 3. Continue low-dose CT scan of the chest in 12 months is recommended. Reading Location: [facility] CC: Dr. Michelle Veras MD ~ Supervisor Sintering Plant: Signed [facility] 10-03-2024 Radiology Diagnostic study note [facility] Imaging Services [address] [place] [id number] Shoulder min 2 Views MR#: [id number] Acct: [id number] Name: YASH FRANCOIS NOVEMBER Rep #: [id number] : 1945 F 78 From: Jessica Ferrer DO PCP: Dr. Michelle Veras MD Status: REG CL I Study:Shoulder min 2 Views Date of Exam: 10/03/24 Exam# [id number] Ordering Dr: Liberty Veras MD PROCEDURE: Right shoulder radiographs, four views 10/03/2024 REASON FOR EXAM: Right shoulder pain TECHNIQUE: Four views of the right shoulder were obtained. COMPARISON: None available FINDINGS: Four views of the right shoulder were obtained. Included lungs are clear. Bones are osteopenic. No acute fracture or dislocation of the right shoulder. Luwi-ly-nyvhrbrk degenerative change right acromioclavicular joint. No AC jointwidening. The subacromial space is maintained. Severe degenerative change right glenohumeral joint. RAD/Shoulder min 2 Views IMPRESSION: Osteopenia. No acute bony abnormality of the right shoulder. Severe degenerative change right glenohumeral joint. Mild/moderate degenerative change right acromioclavicular joint. No AC joint widening. Reading Location: [facility] CC: Dr. Michelle Veras MD ~ Supervisor Sintering Plant: Signed [facility] 09-07-2023 Telephone encounter Note We have been unable to reach your patient to schedule their test. Test Name: US ab limited 1st attempt//Altobeamhart message//09.06.23 KGK 2nd attempt//left vm// TE to office// 09.07.23 KGK [facility] 09-07-2023 Miscellaneous Notes We have been unable to reach your patient to schedule their test. Test Name: US ab limited 1st attempt//mychart message//09.06.23 KGK 2nd attempt//left vm// TE to office// 09.07.23 KGK documented in this encounter [facility] 08-10-2023 Procedure note [facility] 07-10-2023 Note HNO ID: [id number] Author: DONNA NOLAN APRN.ELECTRONIC GAMING DEVICE SUPERVISOR Service: Anesthesiology Author Type: Nurse Automobile Rental Clerk Type: Anesthesia Procedure Notes Filed: 07/10/2023 14:08 Note Text: ANESTHESIOLOGY PROCEDURE NOTE Airway General Information Procedure Start Time/Medication Administration: 07/10/2023 2:07 PM Patient location during procedure: OR Timeout Performed Pre-procedure: timeout performed Consent Obtained: Yes Patient identity confirmed: arm band and patient Staffing ELECTRONIC GAMING DEVICE SUPERVISOR: Donna Nolan APRN.ELECTRONIC GAMING DEVICE SUPERVISOR Performed by: RASHMI Indications and Patient Condition Indications for airway management: anesthesia Preoxygenated: yes anesthesia circuit Patient position: sniffing Method: asleep Final Airway Details Final airway type: supraglottic airway Number of attempts at approach: 1 Final Supraglottic Airway: i-gel Size 4 Seal Adequate: yes SIGNATURE: Donna Nolan APRN.ELECTRONIC GAMING DEVICE SUPERVISOR PATIENT NAME: Yash Francois DATE: July 10, 2023 TIME: 2:08 PM CSN: [id number] [facility] 07-09-2023 Discharge summary Note Date/Time July 09, 2023 8:32am [facility] Medical Records Department [address] [place] [address] Emergency Department Summary 07/09/23 MR#: [id number] Acct: [id number] Name: YASH FRANCOIS NOVEMBER Rep #:[id number] : 1945 77 From: Guerrero Scott MD PCP: Care Physician,No Primary Status :REG ER Location: ED HPI HPI - GI History of Present Illness Chief Complaint: Flank Pain Detail of Chief Complaint: Left flank pain. Known history of kidney stone. Informant: patient and friend Abdominal Pain/Flank Pain Onset: Today and Hours Context: Gradual Onset Timing: Intermittent Location: Left Flank Current Severity: Moderate Maximum Severity: Moderate Relieved by: Nothing Nausea/Vomiting/Emesis GI Symptom: Positive for Nausea and Vomiting Onset: Today Severity: Mild Diarrhea/Melena/Hematochezia GI Symptom: Negative for Diarrhea, Melena or Hematochezia Associated Symptoms Associated Symptoms: Positive for Hematuria; Negative for Dysuria, Frequency or Urgency Narrative Narrative: 77-year-old female history of left-sided kidney stones. She is seeing Dr. Saenz about this and has pending surgery in July. Complaining of left flank pain this morning. With associated nausea and vomiting. Denies any fever. Denies any chills. Minimal hematuria. Prior similar symptoms: Yes Recent Illness/Hospitalization: No PFSH PFSH Medical History Kidney stone Home Medications hydrocodone-acetaminophen 5-325mg 5mg-325mg 1 tab PO Q6H PRN PRN Pain 3 days #12TABLETS 05/10/23 [Rx Last Taken Unknown] terbinafine 1 % topical gel ea topical 07/09/23 [History Last Taken Unknown] Allergy/AdvReac Type Severity Reaction Status Date / Time No Known Allergies Allergy Verified 07/09/23 08:17 Social History Smoking Status: Never smoker ROS ROS ED ROS Narrative Left flank pain. Nausea vomiting. Review of Systems ROS Unobtainable: Denies due to encephalopathy Constitutional Constitutional ED: Denies chills or fever(s) ENT ENT ED: Denies ear pain Cardiovascular Cardiovascular: Denies chest pain Respiratory/Chest Respiratory/Chest: Denies cough or dyspnea Gastrointestinal Gastrointestinal: Reports nausea and vomiting; Denies constipation, diarrhea or melena Genitourinary Genitourinary ED: Reports hematuria; Denies dysuria or urinary frequency Musculoskeletal Musculoskeletal: Denies arthralgias, back pain, myalgias or neck pain Integumentary Denies abscess or Abrasions Neurologic Neurologic: Denies headache(s) Psychiatric Psychiatric: Denies anxiety Endocrine Endocrinology: Denies polydipsia Hematologic/Lymphatic Hematologic/Lymphatic: Denies easy bleeding Allergic/Immunologic Allergic/Immunologic ED: Denies mouth swelling, tongue swelling or urticaria EXAM Physical Exam Narrative Exam Narrative: Well-appearing 77-year-old female with no acute distress. Appears comfortable. But complaining of left flank pain. Friend present in room. HEENT exam unremarkable. Mytrex membranes. Lungs clear to auscultation. Heart regular rhythmrate about 60 no murmur. Abdomen soft, nontender, nondistended normal bowel sounds no peritoneal signs. Back there is no reproducible tenderness of the back, ribs or costovertebral angles. Moving all 4 extremities. Nontender no edema. Neurologically she is awake and alert with no focal motor deficits. Answering questions following commands. Const Vital Signs: 07/09/23 08:14 07/09/23 08:55 07/09/23 10:54 Temperature 98 F 97.6 F L Temperature Source Temporal Oral Pulse Rate 57 L 71 67 Respiratory Rate 16 16 16 Blood Pressure 125/81 H 146/68 H 134/74 H Blood Pressure Mean 95 94 94 Pulse Ox 98 94 98 Oxygen Delivery Method Room Air Room Air Room Air 07/09/23 10:56 Temperature 97.6 F L Temperature Source Oral Pulse Rate 67 Respiratory Rate 16 Blood Pressure 134/74 H Blood Pressure Mean 94 Pulse Ox 98 Oxygen Delivery Method Room Air Positive well nourished and well developed; Negative for obese, cachectic, contractures or unkempt General Appearance ED: well developed and NAD; Negative for unkempt, cachectic, contractures or pallor Nutritional Appearance: Negative for cachectic or obese HEENT Reports moist mucous membranes; Denies dry mucous membranes normocephalic and atraumatic; Negative for trauma or tenderness Mouth ED: No dry mucous membranes Mouth: No dry mucous membranes Eyes PERRL and EOMs intact bilaterally General Eye ED: Negative for pale conjunctiva, scleral icterus or other Neck no lymphadenopathy, supple and no JVD General: Negative for tenderness Carotids: Negative for other Lymph Lymphatic: Negative for other Resp normal respiratory effort and clear to auscultation bilaterally Effort and Inspection: Negative for respiratory distress Auscultation: Negative for rales, rhonchi or wheezes Cardio regular rate, regular rhythm, S1 normal heart sound, S2 normal heart sound and no murmurs Rate: Negative for bradycardia or tachycardic Rhythm: Negative for abnormal rhythm or other GI non-tender, non-distended and no masses Inspection: Negative for abdominal distention Auscultation: normoactive bowel sounds Palpation: soft; Negative for tender, guarding, rigid, hepatomegaly, splenomegaly, hernia, mass, pulsatile mass or rebound tenderness present Back/Spine no CVA tenderness General Back: Negative for CVA tenderness Cervical Spine: Negative for cervical spine tenderness Thoracic Spine / Upper Back: Negative for thoracic spinal tenderness Lumbar Spine / Lower Back: Negative for lumbar spinal tenderness Coccyx: Negative for other Extremity full ROM General Extremety ED: Negative for edema, tenderness or other findings General Extremity: Negative for edema or other findings Neuro CN's II-XII intact bilaterally and moves all extremities Sensorium / Orientation: alert, oriented to person, oriented to place and oriented to time; Negative for orientation impaired, confused, lethargic or stuporous Motor Exam: strength 5/5 throughout; Negative for general weakness or strength abnormal Psych mental status grossly normal and thought process normal Appearance: Negative for unkempt Attitude: No agitated Mood & Affect: Negative for depressed, anxious or tearful Skin no wounds General Skin Exam: Negative for jaundice or pallor Lesions: no lesions Rashes: no rashes Trauma: Negative for abrasion Nails: Negative for discolored MDM MDM MDM Narrative Medical decision making narrative: 77-year-old female known prior left kidney stone has upcoming surgery in July with urologist. Complaint left flank pain with nausea and vomiting. Will treat with IV morphine and Zofran. Urinalysis, labs and CT are being obtained. She did take an oxycodone at home. Patient treated with morphine 3 different doses for pain. Zofran for nausea. The urine is questionable. There is some contaminant with epithelial cells However she is a 25-50 white cells and 2+ bacteria with an obstruction on the left ID treated with IV Rocephin. I attempted and was able to get all of the patient's urologist but she is currently out of town and unable to do any intervention at this time. Patient requested I attempted transfer to [facility] not taking any transfers. We are currently [facility] to see speaking with that he can except her in transfer. History & Record Review Discussion w/independent historian: Patient Additional record(s) reviewed:: Prior inpatient record, Prior outpatient record,Prior ED visit, Prior labs and No prior records Lab Data Attestation: I reviewed the patient's lab results. Lab results narrative: CBC normal. White count of 6. H&H of 12 and 40. Platelets 188. Urinalysis shows cloudy urine with 250 occult blood. Microscopic UA shows 5-10 red cells. 25-50 white cells. It is contaminated with 5-10 epithelial cells. 2+ bacteria. Electrolytes show gap of 3. BUN 24 creatinine 0.6. Glucose 142. Labs: Laboratory Results - last 24 hr 07/09/23 07/09/23 08:30 08:43 WBC 6.8 RBC 4.53 Hgb 12.6 Hct 40.7 MCV 89.8 MCH 27.8 MCHC 31.0 L RDW Std Deviation 44.6 H RDW Coeff of Juliana 13.6 Plt Count 188 MPV 10.1 Immature Gran % (Auto) 0.400 Neut % (Auto) 71.1 H Lymph % (Auto) 22.5 Glasscock % (Auto) 3.8 Eos % (Auto) 1.3 Baso % (Auto) 0.9 Absolute Neuts (auto) 4.8 Absolute Lymphs (auto) 1.52 Nucleated RBC % 0 Sodium 138 Potassium 3.8 Chloride 108 H Carbon Dioxide 27.0 Anion Gap 3 L BUN 24 H Creatinine 0.66 Estim Creat Clear Calc 58.81 Est GFR (MDRD) Af Amer 112 Est GFR (MDRD) Non-Af 93 BUN/Creatinine Ratio 36.5 H Glucose 142 H Calcium 9.7 Urine Color Yellow Urine Clarity Sl. Cloudy Urine pH 7.0 Ur Specific [place] 1.015 Urine Protein 30 H Urine Glucose (UA) Normal Urine Ketones Negative Urine Occult Blood 250 H Urine Nitrite Negative Urine Bilirubin Negative Urine Urobilinogen Normal Ur Leukocyte Esterase 25 H Urine RBC 5-10 SEEN Urine WBC 25-50 SEEN Ur Squamous Epith Cells 5-10 SEEN Urine Bacteria 2+ Hyaline Casts 0 SEEN RBC Casts 0-5 SEEN WBC Casts 0 SEEN Urine Mucus 1+ Radiography Diagnostic Testing: Clinical Impression(s) from Imaging Studies Abdomen/Pelvis CT 07/09/23 08:26 IMPRESSION: Moderate left hydronephrosis secondary to a 7 x 10 mm distal ureteral calculus. Bilateral nephrolithiasis. No right hydronephrosis. Cholelithiasis. Chronic mild hepatomegaly. Colonic diverticulosis without acute diverticulitis. Electronically Signed: Nadiya Nguyen MD at 9:37 EST , Discharge Plan Triage Chief Complaint: Flank Pain ED Provider: Guerrero Scott Dx/Rx/DC Orders Clinical Impression: Left flank pain, Obstruction of left kidney, Kidney stone on left side Prescriptions: No Action hydrocodone-acetaminophen 5-325 mg tablet 1 tab PO Q6H PRN PRN (Reason: Pain) 3 Days Qty: 12 0RF terbinafine 1 % gel topical Primary Care Provider: Care Physician,No Primary Referrals: Care Physician,No Primary [Primary Care Provider] - Disposition Disposition: [facility] What to do if you have Problems For any increased pain, shortness of breath, bleeding, nausea or vomiting, chestpain, or any unexpected problems, contact your Primary Care Provider. Call [facility] ([phone]) or report to the closest Emergency Room. Call 911 if necessary. 07/09/23 9607 <Electronically signed by Guerrero Scott MD> Cosigner Signature (if applicable): CC: No Primary Care Physician ~ Signed [facility] Work Phone: 1(967) 101-230901-04-2024 History of Present illness Narrative* Juan Francisco MD - 06/15/2023 11:42 AM EST Lab printed and faxed to requested location. Crhistina Francisco MD 06/15/2023 11:49 AM documented in this [facility]01-04-2024 Telephone encounter Note* Telephone Encounter - Shital Le LPN - 06/15/2023 11:13 AM EST Just order the Lab as you would for [facility] and I will print and fax. Thanks Shital Le LPN, on 06/15/23 at 11:13 AM. [facility] [id number] Miscellaneous Notes* Telephone Encounter - Shital Le LPN - 06/15/2023 11:13 AM EST Just order the Lab as you would for [facility] and I will print and fax. Thanks Shital Le LPN, on 06/15/23 at 11:13 AM. * Telephone Encounter - Shital Le LPN - 06/09/2023 2:27 PM EST Patient called stating that Dr. Francisco wanted her to have Lab work done , due to taking Lamisil. Patient would like a Lab order faxed to [facility] in [place] fax no is [phone] Shital Le LPN, on 06/09/23 at 2:28 PM. documented in this [facility]12-29-2023 Telephone encounter Note* Telephone Encounter - Shital Le LPN - 06/09/2023 2:27 PM EST Patient called stating that Dr. Francisco wanted her to have Lab work done , due to taking Lamisil. Patient would like a Lab order faxed to [facility] in [place] fax no is [phone] Shital Le LPN, on 06/09/23 at 2:28 PM. [facility] [id number] Telephone encounter Note* Telephone Encounter - Nora Heller - 05/30/2023 3:41 PM EST Spoke with pt that we are not contracted with [facility] and would be considered self pay - Pt states she is in [place] and will be follow up with [facility] and did not want to schedule surgerydue to insurance and distance. [facility] [id number] Miscellaneous Notes* Telephone Encounter - Nora Heller - 05/30/2023 3:41 PM EST Spoke with pt that we are not contracted with [facility] and would be considered self pay - Pt states she is in [place] and will be follow up with [facility] and did not want to schedule surgerydue to insurance and distance. * Telephone Encounter - Nora Heller - 05/30/2023 3:40 PM EST ----- Message from João Villa MD sent at 05/24/2023 4:38 PM EST ----- Cystoscopy, left ureteroscopy, laser lithotripsy and stent documented in this encounterSDoctors [id number] Telephone encounter Note* Telephone Encounter - Nora Heller - 05/30/2023 3:40 PM EST ----- Message from João Villa MD sent at 05/24/2023 4:38 PM EST ----- Cystoscopy, left ureteroscopy, laser lithotripsy and stent [facility] [id number] Telephone encounter Note* Telephone Encounter - Rosibel Palacios - 05/29/2023 11:26 AM EST Santiago Ribeiro called back to help get pt scheduled for surgery for kidney stones with DR Villa. Spoke with Nora Villa's spud driller who stated she will give Carmen a call back. New Phone number [phone]. Routed message to Nora. [facility] [id number] Miscellaneous Notes* Telephone Encounter - Rosibel Palacios - 05/29/2023 11:26 AM EST Santiago Ribeiro called back to help get pt scheduled for surgery for kidney stones with DR Villa. Spoke with Nora Villa's spud driller who stated she will give Carmen a call back. New Phone number [phone]. Routed message to Nora. * Telephone Encounter - Rosibel Palacios - 05/12/2023 11:47 AM EST Pt returning a call to office. Read Aida's message verbatim to pt. Pt states she has some fatigue from traveling but overall feels fine. Pt voiced understanding to keep appt 05/24/[address] Villa in [place]. * Telephone Encounter - ANGEL Russo CNP - 05/12/2023 9:49 AM EST Attempted to speak to pt via telephone regarding recent visit to [place] [facility] 05/10/2023 and request for appointment 05/12/2023. Pt did not answer, and voicemail box is not setup. Please reach out to pt to see if she is doing well. Pt has appt 05/24/[address] Villa that she can keep, appt does not need to be moved up at this time. Thank you! * Telephone Encounter - Brook Mcfarlane - 05/12/2023 6:50 AM EST Name of caller: Yash Contact phone number: [phone] Relationship to Patient: patient Provider: [facility]: Urology Chief Complaint/Reason for Call: patient called in stated that she should have an appointment todayinformed her of 05/24 appointment patient stated that was changed due to her recent time in the hospital informed I do not see another appointment for Dr. Bowman Patient would like a call back regarding appointment Best time of day caller can be reached: any Patient advised that office/PCP has 24-48 business hours to return their call: Yes documented in this [facility]12-13-2023 NoteAddended by: JOÃO VILLA on: 05/25/2023 04:54 PM Modules accepted: [facility]12-13-2023 History of Present illness Narrative* João Villa MD - 05/24/2023 3:50 PM EST Images from the original note were not included. João Villa MD 05/24/2023 at 4:41 PM Office follow up PATIENT NAME: Yash Francois DATE OF : 1945 TODAY'S DATE: 05/24/2023 CHIEF COMPLAINT: Chief Complaint Patient presents with Nephrolithiasis [address] Joya in August [place] [facility] approx 2 weeks ago for stones [...] for difficulty urinating, dyspareunia, enuresis, urgency, vaginal bleeding,vaginal discharge and vaginal pain. Past Medical History: [...] mg) by mouth daily. 05/18/23 06/29/23 Yes Christina Francisco MD Vitamin E 100 units tablet Take [...] BILIRUBINUR Negative 06/07/2022 Review: CT reviewed from [place] [facility] I discussed the procedure of ureteroscopy. [...] MD 05/24/23 4:41 PM documented in this [facility]12-13-2023 History of Present illness Narrative* João Villa MD - 05/24/2023 3:50 PM EST Images from the original note were not included. João Villa MD 05/24/2023 at 4:41 PM Office follow up PATIENT NAME: Yash Francois DATE OF : 1945 TODAY'S DATE: 05/24/2023 CHIEF COMPLAINT: Chief Complaint Patient presents with Nephrolithiasis [address] Joya in [place] [facility] approx 2 weeks ago for stones [...] for difficulty urinating, dyspareunia, enuresis, urgency, vaginal bleeding,vaginal discharge and vaginal pain. Past Medical History: [...] mg) by mouth daily. 05/18/23 06/29/23 Yes Christina Francisco MD Vitamin E 100 units tablet Take [...] percocet and zofran sent in documented in [facility]12-13-2023 Miscellaneous Notes* Addendum Note - João Villa MD - 05/24/2023 3:50 PM ESTAddended by: JOÃO VILLA on: 05/25/2023 04:54 PM Modules accepted: Orders documented in this [facility]12-13-2023 Note* Addendum Note - João Villa MD - 05/24/2023 3:50 PM ESTAddended by: JOÃO VILLA on: 05/25/2023 04:54 PM Modules accepted: Orders [facility] [id number] Telephone encounter Note* Telephone Encounter - Carmen Jacobs LPN - 05/19/2023 12:29 PM EST See documentation in the TE. [place] [id number] Miscellaneous Notes* Telephone Encounter - Carmen Jacobs LPN - 05/19/2023 12:29 PM EST See documentation in the TE. * Telephone Encounter - Christina Francisco MD - 05/18/2023 5:43 PM EST It is important for this patient to have her liver enzymes tested while being on this medication. Can we please have the patient scheduled for visit. Christina Francisco MD 05/18/2023 5:43 PM * Telephone Encounter - Hamida Cardenas - 05/16/2023 4:17 PM EST Patient only has 1 dosage left Medication [...] doctor or facility: N/A Ordering provider: Dr Francisco Date of last office visit: 04/05/23 Date of next office visit: 06/08/2023 Date of last refill: (see medication tab): 04/05/23 Updated/Validated preferred pharmacy: Yes Patient instructed to contact the pharmacy prior to picking up the medication: Yes documented in this [facility]12-08-2023 Telephone encounter Note* Telephone Encounter - Carmen Jacobs LPN - 05/19/2023 11:49 AM EST Spoke with Carmen and let her know the medication has been sent to the pharmacy. Also told her labneeds done and pt needs an appointment. She is not currently at home and will call back. [facility] [id number] Miscellaneous Notes* Telephone Encounter - Carmen Jacobs LPN - 05/19/2023 11:49 AM EST Spoke with Carmen and let her know the medication has been sent to the pharmacy. Also told her labneeds done and pt needs an appointment. She is not currently at home and will call back. * Telephone Encounter - Christina Francisco MD - 05/19/2023 11:01 AM EST I sent a refill to the pharmacy for this medication prior and requested an office visit so that LFTs can be monitored. Christina Francisco MD 05/19/2023 11:01 AM * Telephone Encounter - Bonita Strickland RN - 05/18/2023 5:28 PM EST S: Patient spoke with [facility] nurse regarding medication problem B: Onset of symptoms/concern last OV 04/05/23 A: Pt's daughter-Carmen called concerned about running out of her medication for Toe nail fungus. Concerned about break in therapy. Labs were drawn on the day they were ordered, not able to see in [facility]. Confirmed follow up appt is 06/08/23 at 4:15pm with Dr. Ramirez. Pharmacy and allergies verified. R: Message sent to provider for review and recommendation. Attn office: please call Marta [phone] with provider's response. Patient understands care advice. No further needs at this time. Patient instructed to call back with new or worsening symptoms. Reason for Disposition [1] Caller has NON-URGENT medicine question about med that PCP prescribed AND [2] triager unable toanswer question Protocols used: Medication Refill and Renewal [id number] documented in this [facility]12-08-2023 Telephone encounter Note* Telephone Encounter - Christina Francisco MD - 05/19/2023 11:01 AM EST I sent a refill to the pharmacy for this medication prior and requested an office visit so that LFTs can be monitored. Chirstina Francisco MD 05/19/2023 11:01 AM [facility] Phone: [phone]) 644-969912-07-2023 Telephone encounter Note* Telephone Encounter - Christina Francisco MD - 05/18/2023 5:43 PM EST It is important for this patient to have her liver enzymes tested while being on this medication. Can we please have the patient scheduled for visit. Christina Francisco MD 05/18/2023 5:43 PM [id number] Miscellaneous Notes* Telephone Encounter - Christina Fracnisco MD - 05/18/2023 5:43 PM EST It is important for this patient to have her liver enzymes tested while being on this medication. Can we please have the patient scheduled for visit. Christina Francisco MD 05/18/2023 5:43 PM * Telephone Encounter - Hamida Cardenas - 05/16/2023 4:17 PM EST Patient only has 1 dosage left Medication [...] doctor or facility: N/A Ordering provider: Dr Francisco Date of last office visit: 04/05/23 Date of next office visit: 06/08/2023 Date of last refill: (see medication tab): 04/05/23 Updated/Validated preferred pharmacy: Yes Patient instructed to contact the pharmacy prior to picking up the medication: Yes documented in this [facility]12-07-2023 Telephone encounter Note* Telephone Encounter - Bonita Strickland RN - 05/18/2023 5:28 PM EST S: Patient spoke with [facility] nurse regarding medication problem B: Onset of symptoms/concern last OV 04/05/23 A: Pt's daughterGarrett called concerned about running out of her medication for Toe nail fungus. Concerned about break in therapy. Labs were drawn on the day they were ordered, not able to see in [facility]. Confirmed follow up appt is 06/08/23 at 4:15pm with Dr. Ramirez. Pharmacy and allergies verified. R: Message sent to provider for review and recommendation. Attn office: please call Marta [phone] with provider's response. Patient understands care advice. No further needs at this time. Patient instructed to call back with new or worsening symptoms. Reason for Disposition [1] Caller has NON-URGENT medicine question about med that PCP prescribed AND [2] triager unable toanswer question Protocols used: Medication Refill and Renewal [id number] [facility] [id number] Telephone encounter Note* Telephone Encounter - Hamida Cardenas - 05/16/2023 4:17 PM EST Patient only has 1 dosage left Medication [...] doctor or facility: N/A Ordering provider: Dr Francisco Date of last office visit: 04/05/23 Date of next office visit: 06/08/2023 Date of last refill: (see medication tab): 04/05/23 Updated/Validated preferred pharmacy: Yes Patient instructed to contact the pharmacy prior to picking up the medication: Yes [facility] [id number] Telephone encounter Note* Telephone Encounter - Rosibel Palacios - 05/12/2023 11:47 AM EST Pt returning a call to office. Read Aida's message verbatim to pt. Pt states she has some fatigue from traveling but overall feels fine. Pt voiced understanding to keep appt 05/24/[address] Villa in [place]. [facility] [id number] Miscellaneous Notes* Telephone Encounter - Rosibel Palacios - 05/12/2023 11:47 AM EST Pt returning a call to office. Read Aida's message verbatim to pt. Pt states she has some fatigue from traveling but overall feels fine. Pt voiced understanding to keep appt 05/24/[address] Villa in [place]. * Telephone Encounter - ANGEL Russo CNP - 05/12/2023 9:49 AM EST Attempted to speak to pt via telephone regarding recent visit to [place] [facility] 05/10/2023 and request for appointment 05/12/2023. Pt did not answer, and voicemail box is not setup. Please reach out to pt to see if she is doing well. Pt has appt 05/24/[address] Villa that she can keep, appt does not need to be moved up at this time. Thank you! * Telephone Encounter - Brook Mcfarlane - 05/12/2023 6:50 AM EST Name of caller: Yash Contact phone number: [phone] Relationship to Patient: patient Provider: [facility]: Urology Chief Complaint/Reason for Call: patient called in stated that she should have an appointment todayinformed her of 05/24 appointment patient stated that was changed due to her recent time in the hospital informed I do not see another appointment for Dr. Bowman Patient would like a call back regarding appointment Best time of day caller can be reached: any Patient advised that office/PCP has 24-48 business hours to return their call: Yes documented in this [facility]12-01-2023 Telephone encounter Note* Telephone Encounter - ANGEL Russo CNP - 05/12/2023 9:49 AM EST Attempted to speak to pt via telephone regarding recent visit to [place] [facility] 05/10/2023 and request for appointment 05/12/2023. Pt did not answer, and voicemail box is not setup. Please reach out to pt to see if she is doing well. Pt has appt 05/24/[address] Villa that she can keep, appt does not need to be moved up at this time. Thank you! [employer] Work Phone: 1(140) 331-751712-01-2023 Telephone encounter Note* Telephone Encounter - Brook Mcfarlane - 05/12/2023 6:50 AM EST Name of caller: Yash Contact phone number: [phone] Relationship to Patient: patient Provider: [facility]: Urology Chief Complaint/Reason for Call: patient called in stated that she should have an appointment todayinformed her of 05/24 appointment patient stated that was changed due to her recent time in the hospital informed I do not see another appointment for Dr. Bowman Patient would like a call back regarding appointment Best time of day caller can be reached: any Patient advised that office/PCP has 24-48 business hours to return their call: Yes [employer]11-29-2023 Discharge summary Author Gonzalez Yañez [facility] May 10, 2023 11:42pm Note Date/Time May 10, 2023 9:39pm [facility] Medical Records Department [address] [place] [address] Emergency Department Summary 05/10/23 MR#: [id number] Acct: [id number] Name: YASH FRANCOIS NOVEMBER Rep #:[id number] : 1945 77 From: Gonzalez Yañez MD PCP: Care Physician,No Primary Status :REG ER Location: ED HPI HPI - GI History of Present Illness Chief Complaint: Flank Pain Narrative Narrative: 77-year-old female who denies significant past medical history although she states that she had a 19 mm right-sided kidney stone that was blasted by a urologist in [place] last year. She states that they left a kidney stone on the left. Today she began having left-sided flank pain more in her back that radiates towards the front. She denies any fevers or chills but states she became nauseated and vomited before she came. No dysuria or hematuria, althoughshe may have had urinary frequency this morning. She states her symptoms began today, and she took an Aleve while at work which may have helped a small amount. She presents with her daughter because of the left-sided flank pain, with nausea and vomiting. No problems with bowel movements. [facility] Medical History Kidney stone Home Medications hydrocodone-acetaminophen 5-325mg 5mg-325mg 1 tab PO Q6H PRN PRN Pain 3 days #12TABLETS 05/10/23 [Rx Last Taken Unknown] tamsulosin 0.4 mg capsule (Flomax) 0.4 mg PO QHS #10 caps 05/10/23 [Rx Last Taken Unknown] Allergy/AdvReac Type Severity Reaction Status Date / Time No Known Allergies Allergy Verified 05/10/23 21:16 Social History Smoking Status: Never smoker ROS ROS ED ROS Narrative Constitutional: No fever, no chills. HEENT: No sore throat. No neck pain. No loss of vision. No rhinorrhea. Cardiovascular: No chest pain. No palpitations. No pedal edema. Respiratory: No cough, no shortness of breath. Abdominal: No abdominal pain. Positive nausea. 1 episode of vomiting prior to arrival. No hematemesis. Genitourinary: No dysuria. No hematuria. Urinary frequency. Left-sided flank pain radiating towards front. Musculoskeletal: No myalgias. No arthralgias. Neurologic: No headaches. No dizziness. No lightheadedness. Skin: No rash. No change in color. Psychiatric: No depression. No anxiety. EXAM Physical Exam Narrative Exam Narrative: Focused physical examination reveals patient to be afebrile. Vital signs noted. Regular rate and rhythm. No murmurs, rubs, or gallops appreciated. Abdomen soft and nontender with normal active bowel sounds. No rebound, no guarding. Lungs clear to auscultation bilaterally. No CVA tenderness to percussion on theleft. Neurological examination is nonfocal and nonlateralizing. Const Vital Signs: 05/10/23 21:14 Temperature 97.9 F Temperature Source Temporal Pulse Rate 79 Respiratory Rate 18 Blood Pressure 165/100 H Blood Pressure Mean 121 Pulse Ox 97 Oxygen Delivery Method Room Air MDM MDM MDM Narrative Medical decision making narrative: In the differential diagnosis is ureteral stone with ureteral colic versus diverticulitis versus musculoskeletal flank pain. Her history and physical doesnot necessarily support diverticulitis, and suspicion is higher for ureteral stone given her history. Patient with CBC, BMP, and UA will be checked. She declined stronger analgesics but will be given small dose of Toradol and ondansetron. IV fluids will be run at 250 mL/h. I do feel CT imaging is indicated. Urinalysis will be checked to help rule out UTI/pyelonephritis. Upon repeat examination at approximately 2310, patient is pain-free. I reviewedher laboratory work and she has a normal white count of 7.8, hemoglobin normal at 12.2, hematocrit 38.3, platelet count normal at 179. Review of her BMP showsnormal sodium of 141, potassium 4.0, chloride slightly elevated at 110 which I think is nonspecific BUN elevated at 30 with a creatinine of 1.09, no prior withwhich to compare. Glucose is slightly elevated at 135 but she has a normal anion gap of 5. I have no concern for diabetic ketoacidosis. Urinalysis is negative for infection and negative for blood with 0-5 WBCs and 0-5 RBCs. I do not feel antibiotics are indicated. I reviewed the radiology report of the CT of the abdomen and pelvis without contrast. There are multiple stones in the left ureter causing hydronephrosis. There is a 10 mm stone at the left UPJ, with an adjacent 4 mm stone. More distal is a 6 mm diameter stone measuring 1.4cm in length. Currently she is pain-free. I do not feel antibiotics are indicated as she does not have a urinary tract infection. I will write her a prescription for Flomax although she has multiple, lengthy stones, and for Percocet for the next 3 days. I discussed patient with Dr. Abraham with [facility] urology who agrees with close outpatient follow-up with Dr. Villa with whom she has an appointment later this week. I feel she can be discharged safely home with follow-up. Return instructions to the emergency department were reviewed. If she has fever, increased pain, new or worsening symptoms she should return to the emergency department. Patient is in agreement with the plan. Disposition is discharged home in stable condition. History & Record Review Discussion w/independent historian: Patient and Family Additional record(s) reviewed:: No prior records Lab Data Attestation: I reviewed the patient's lab results. Labs: Laboratory Results - last 24 hr 05/10/23 05/10/23 21:24 21:40 WBC 7.8 RBC 4.30 Hgb 12.2 Hct 38.3 MCV 89.1 MCH 28.4 MCHC 31.9 L RDW Std Deviation 45.1 H RDW Coeff of Juliana 13.9 Plt Count 179 MPV 10.1 Immature Gran % (Auto) 0.500 Neut % (Auto) 70.3 H Lymph % (Auto) 19.1 Glasscock % (Auto) 7.2 Eos % (Auto) 2.3 Baso % (Auto) 0.6 Absolute Neuts (auto) 5.5 Absolute Lymphs (auto) 1.49 Nucleated RBC % 0 Sodium 141 Potassium 4.0 Chloride 110 H Carbon Dioxide 26.0 Anion Gap 5 BUN 30 H Creatinine 1.09 H Estim Creat Clear Calc 37.92 Est GFR (MDRD) Af Amer 63 Est GFR (MDRD) Non-Af 52 L BUN/Creatinine Ratio 27.5 H Glucose 135 H Calcium 9.6 Urine Color Yellow Urine Clarity Cloudy Urine pH 7.0 Ur Specific [place] 1.015 Urine Protein Negative Urine Glucose (UA) Normal Urine Ketones Negative Urine Occult Blood 25 H Urine Nitrite Negative Urine Bilirubin Negative Urine Urobilinogen Normal Ur Leukocyte Esterase Negative Urine RBC 0-5 SEEN Urine WBC 0-5 SEEN Ur Squamous Epith Cells 0-5 SEEN Amorphous Sediment 2+ Urine Bacteria 0 SEEN Urine Mucus 0 SEEN Radiography Diagnostic Testing: Clinical Impression(s) from Imaging Studies Abdomen/Pelvis CT 05/10/23 21:33 IMPRESSION: 1. Nephrolithiasis with large, obstructing proximal and distal left ureteral stones resulting in moderate hydronephrosis, perinephric stranding density and suspected, mild asymmetric left renal edema. 2. Bilateral posterior diaphragmatic hernias with fat herniated into the thoracic cavity. No significant mass effect on the lungs. 3. Cholelithiasis without cholecystitis. 4. Diverticulosis without diverticulitis. Electronically Signed: Jamarcus Marlow DO at 23:21 EST , Discharge Plan Triage Chief Complaint: Flank Pain ED Provider: Gonzalez Yañez Dx/Rx/DC Orders Clinical Impression: Hydronephrosis with urinary obstruction due to ureteral calculus, Ureteral calculi Instructions: ED Kidney Stone w/ Colic Prescriptions: New tamsulosin [Flomax] 0.4 mg capsule 0.4 mg PO QHS Qty: 10 0RF hydrocodone-acetaminophen 5-325 mg tablet 1 tab PO Q6H PRN PRN (Reason: Pain) 3 Days Qty: 12 0RF Primary Care Provider: Care Physician,No Primary Referrals: NOT,DEFINED [Non-Staff] - Activity Restrictions/Additional Instructions: Follow-up with Dr. Villa with urology as scheduled later this week. Return with fever, increased pain, new or worsening symptoms. Disposition Disposition: Home, Self Care What to do if you have Problems For any increased pain, shortness of breath, bleeding, nausea or vomiting, chestpain, or any unexpected problems, contact your Primary Care Provider. Call [facility] ([phone]) or report to the closest Emergency Room. Call 911 if necessary. 05/10/232341 <Electronically signed by Gonzalez Yañez MD> Cosigner Signature (if applicable): CC: No Primary Care Physician ~ Signed [facility] Work Phone: 1(282) 514-181011-29-2023 Telephone encounter Note* Telephone Encounter - Autumn Nelson - 05/10/2023 11:32 PM EST Name of caller requesting page:[employer] Phone Number of caller: [phone] Facility requesting page: [facility] Reason for Page: Requesting a doctor to doctor (Dr. Gonzalez Yañez) Provider paged: Dr. Abraham Practice Name of paged provider: [facility] Page Placed to #: Secure Chat Time Page was sent or provider contacted: 11:35 pm Page Content: PAGED [facility] from [facility] for pt Stuart Francois [phone] re doctor to doctor request (Dr. Gonzalez Yañez) [phone] [facility]11-29-2023 Miscellaneous Notes* Telephone Encounter - Autumn Nelson - 05/10/2023 11:32 PM EST Name of caller requesting page:[employer] Phone Number of caller: [phone] Facility requesting page: [facility] Reason for Page: Requesting a doctor to doctor (Dr. Gonzalez Yañez) Provider paged: Dr. Abraham Practice Name of paged provider: [facility] Page Placed to #: Secure Chat Time Page was sent or provider contacted: 11:35 pm Page Content: PAGED [facility] from [facility] for pt Stuart Francois [phone] re doctor to doctor request (Dr. Gonzalez Yañez) [phone] documented in this [facility]11-26-2023 Hospital Discharge instructions Additional Instructions Follow-up with Dr. Villa with urology as scheduled later this week. Return with fever, increased pain, new or worsening symptoms.[facility] Work Phone: [phone] 481-856210-25-2023 History of Present illness Narrative* Shirin Santiago LPN - 04/05/2023 3:15 PM EDT Patient was able to ambulate safely to the examination room. Provider was not notified of possible fall risk * Shirin Santiago LPN - 04/05/2023 3:15 PM EDT Pt asked if they have been to specialist,been in ER /hospitalized or had testing since last visit. no * Christina Francisco MD - 04/05/2023 3:15 PM EDT Images from the original note were not included. [facility] [address] [facility] [address] Dept: [phone] Dept Loc: [phone] Visit type: Established patient Reason for Visit: Nail Problem Assessment and Plan Comment: Patient was previously treated with terbinafine therapy with good response. Last dosage was 2 weeksago restarting regimen for an additional 6 weeks. [...] in significant improvement in the condition of hertoenails. She reports that she tolerated medications with [...] 29 U/L Imaging/Testing: No recent imaging/testing reviewed Christina Francisco MD [facility] 04/05/23 3:53 PM documented in this [facility]10-25-2023 History of Present illness Narrative* Shirin Santiago LPN - 04/05/2023 3:15 PM EDT Patient was able to ambulate safely to the examination room. Provider was not notified of possible fall risk * Shirin Santiago LPN - 04/05/2023 3:15 PM EDT Pt asked if they have been to specialist,been in ER /hospitalized or had testing since last visit. no * Christina Francisco MD - 04/05/2023 3:15 PM EDT Images from the original note were not included. [facility] [address] [facility] [address] Dept: [phone] Dept Loc: [phone] Visit type: Established patient Reason for Visit: Nail Problem Assessment and Plan Comment: Patient was previously treated with terbinafine therapy with good response. Last dosage was 2 weeksago restarting regimen for an additional 6 weeks. [...] in significant improvement in the condition of hertoenails. She reports that she tolerated medications with [...] No recent imaging/testing reviewed Sarah Mcfarlane MD [facility] 04/06/23 10:02 AM * Sarah Mcfarlane MD - 04/05/2023 3:15 PM EDT INDIRECT SUPERVISION THIS SERVICE IS TO BE BILLED UNDER THE PRIMARY CARE EXCEPTION ([facility]) During or immediately after this visit, I discussed this case with the treating resident. Our discussion included the history obtained by the resident, the resident's exam findings, and the resident's treatment plan. The resident's note reflects the information we discussed, and I agree with the resident's assessment and treatment plan. documented in this [facility]10-16-2023 NoteNeeds appt for re-evaluation.[facility]10-16-2023 Telephone encounter Note* Telephone Encounter - Desi Rosario LPN - 03/27/2023 3:55 PM EDT Patient called and scheduled an appointment on 04/05 AT 315PM [facility] [id number] Miscellaneous Notes* Telephone Encounter - Desi Rosario LPN - 03/27/2023 3:55 PM EDT Patient called and scheduled an appointment on 04/05 AT 315PM * Telephone Encounter - Sandro Kerr MD - 03/27/2023 3:33 PM EDT Needs appt for re-evaluation. * Telephone Encounter - Juli Galvez - 03/27/2023 11:23 AM EDT Name of caller: Yash Contact phone number: [phone] Relationship to Patient: patient Provider: tiarra Practice: [...] return their call: no documented in this encounterSDoctors HospitalPyuogv30-02-1573 Telephone encounter Note* Telephone Encounter - Sandro Kerr MD - 03/27/2023 3:33 PM EDT Needs appt for re-evaluation. [facility] HospitalAxicso16-41-2704 Telephone encounter Note* Telephone Encounter - Juli Galvez - 03/27/2023 11:23 AM EDT Name of caller: Yash Contact phone number: [phone] Relationship to Patient: patient Provider: tiarra Practice: [...] business hours to return their call: no [facility] HospitalOshbmc01-69-7292 History of Present illness Narrative* Desi Rosario LPN - 03/16/2023 4:15 PM EDT Pt asked if they have been to specialist,been in ER /hospitalized or had testing since last visit. Yes lung doctor * Desi Rosario LPN - 03/16/2023 4:15 PM EDT Patient was able to ambulate safely to the examination room. Provider was not notified of possible fall risk * Peter Patrick MD - 03/16/2023 4:15 PM EDT Images from the original note were not included. [facility] [address] [facility] [address] Dept: [phone] Dept Loc: [phone] Visit type: Established patient Reason for Visit: [...] CMP. Repeat CMP placed at patient's request. NoHA, vision changes, weakness. Patient was also seen [...] discoloration. Neurological: Mental Status: She is alert. Peter Patrick MD [facility] 03/17/23 1:40 PM documented in this [facility]10-05-2023 History of Present illness Narrative* Desi Rosario LPN - 03/16/2023 4:15 PM EDT Pt asked if they have been to specialist,been in ER /hospitalized or had testing since last visit. Yes lung doctor * eDsi Rosario LPN - 03/16/2023 4:15 PM EDT Patient was able to ambulate safely to the examination room. Provider was not notified of possible fall risk * Peter Patrick MD - 03/16/2023 4:15 PM EDT Images from the original note were not included. [facility] [address] [facility] [address] Dept: [phone] Dept Loc: [phone] Visit type: Established patient Reason for Visit: [...] CMP. Repeat CMP placed at patient's request. NoHA, vision changes, weakness. Patient was also seen [...] discoloration. Neurological: Mental Status: She is alert. Peter Patrick MD [facility] 03/17/23 1:40 PM * Tyesha Carrasco MD - 03/16/2023 4:15 PM EDT INDIRECT SUPERVISION THIS SERVICE IS TO BE [...] assessment and treatment plan. documented in this encounterSDoctors HospitalIctdlw52-65-5536 Telephone encounter Note* Telephone Encounter - Coreen Anderson RN - 03/08/2023 1:16 PM EDT Pt LVM returning our call. Called pt and unable to LVM as mailbox is not set up. [facility] HospitalWrntfj72-17-3651 Miscellaneous Notes* Telephone Encounter - Coreen Anderson RN - 03/08/2023 1:16 PM EDT Pt LVM returning our call. Called pt and unable to LVM as mailbox is not set up. * Telephone Encounter - Laura Galo - 03/08/2023 11:32 AM EDT Called Yash at number listed below and there is no VM set up. * Telephone Encounter - Judd Cloud - 03/08/2023 7:48 AM EDT Name of Caller: Yash Contact Phone Number: [phone] Reason for Appointment: Pt missed appt for 02.23 and would like to r/s appt. Please call her The appt was for *Follow up in about 6 months (around 02/22/2023) for stone follow up (KUB/CONSUELO prior). Office Name: urology Medication Refills need, if any: n/a Medication Name: n/a documented in this encounterSDoctors [id number] Telephone encounter Note* Telephone Encounter - Laura Galo - 03/08/2023 11:32 AM EDT Called Yash at number listed below and there is no set up. [facility] HospitalCierjc65-88-9614 Telephone encounter Note* Telephone Encounter - Judd Cloud - 03/08/2023 7:48 AM EDT Name of Caller: Yash Contact Phone Number: [phone] Reason for Appointment: Pt missed appt for 02.23 and would like to r/s appt. Please call her The appt was for *Follow up in about 6 months (around 02/22/2023) for stone follow up (KUB/CONSUELO prior). Office Name: urology Medication Refills need, if any: n/a Medication Name: n/a [facility] HospitalVitouu90-10-7471 History of Present illness Narrative* Niyah Freeman APRN - SAFIA - 03/06/2023 2:40 PM EDT [facility] [address] [facility] [address] [facility] [address] Dept: [phone] Dept Visit type: Reason for Visit: New Patient History of Present Illness: NIKKIE Francois is a 77 y.o. female patient [...] exposures to asbestos, radon, metals, toxic chemicals, orexotic. 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 Energy level is adequate. No night [...] day of the visit. documented in this [facility]09-25-2023 Instructions* Patient Instructions* Glenny Cazares MA - 03/06/2023 2:40 PM EDT YOUR APPOINTMENT TODAY WAS WITH THE [facility] LUNG NODULE CLINIC, COPD CLINIC, PULMONARY AND SLEEP MEDICINE OFFICE. PLEASE CALL OUR OFFICE AT [phone] IF YOU HAVE NOT RECEIVED YOUR TEST [...] to make improvements. COVID-19 VACCINATION INFORMATION: PH. [phone] HEALTH.ORG/[email or web address]/VACCINE [facility] Central Scheduling [phone] [facility] Sleep Scheduling [phone] documented in this encounterSDoctors HospitalPyhjhx51-61-0585 Telephone encounter Note* Telephone Encounter - Gloria Anderson - 02/14/2023 4:09 PM EDT Returned phone call., voicemail not set up yet Gloria Anderson [facility] [id number] Miscellaneous Notes* Telephone Encounter - Gloria Anderson - 02/14/2023 4:09 PM EDT Returned phone call., voicemail not set up yet Gloria Anderson * Telephone Encounter - Judd Cloud - 02/12/2023 11:03 AM EDT Preferred contact number: [phone] Reason for Visit: Pt started a new job and needs to cx and r/s appt for 02.23.23. Please call to r/s Urgency of Appointment: urology Medications in need of refill: n/a documented in this [place] [address]-05-2023 History of Present illness Narrative* Shirin Santiago LPN - 02/14/2023 3:15 PM EDT Patient was able to ambulate safely to the examination room. Provider was not notified of possible fall risk * Shirin Santiago LPN - 02/14/2023 3:15 PM EDT Pt asked if they have been to specialist,been in ER /hospitalized or had testing since last visit. no * Sandro Kerr MD - 02/14/2023 3:15 PM EDT Images from the original note were not included. [address] [address] Dept: [phone] Dept Loc: [phone] Visit type: Established patient Reason for Visit: Follow-up Assessment and Plan 1. Multiple lung nodules - [facility] Nodule [facility] 2. Benign paroxysmal positional vertigo of right ear - [facility] Physical Therapy Jany Wyatt 3. Onychomycosis - Comprehensive metabolic panel - terbinafine (LamISIL) 250 MG tablet; Take 1 tablet (250 mg) by mouth daily., Starting 02/14/2023, Until Mon03/28/2023, Normal - CT showed multiple small lung nodule, chronic smoker. Lung nodule clinic referral sent. - BPPV, Vestibular therapy sent. - Onychomycosis, terbinafine x 6 weeks, followed by CMP in 4 weeks, normal liver function from lastCMP. Patient was involved and agreeable in shared [...] Neurological: Mental Status: She is alert. Sandro Kerr MD [facility] 02/14/23 4:23 PM documented in this [facility]09-05-2023 History of Present illness Narrative* Shirin Santiago LPN - 02/14/2023 3:15 PM EDT Patient was able to ambulate safely to the examination room. Provider was not notified of possible fall risk * Shirin Santiago LPN - 02/14/2023 3:15 PM EDT Pt asked if they have been to specialist,been in ER /hospitalized or had testing since last visit. no * Sandro Kerr MD - 02/14/2023 3:15 PM EDT Images from the original note were not included. [place] [address] [facility] [address] Dept: [phone] Dept Loc: [phone] Visit type: Established patient Reason for Visit: Follow-up Assessment and Plan 1. Multiple lung nodules - [facility] Lung Nodule Clinic [facility] 2. Benign paroxysmal positional vertigo of right ear - [facility] Physical Therapy Jany Wyatt 3. Onychomycosis - Comprehensive metabolic panel - terbinafine (LamISIL) 250 MG tablet; Take 1 tablet (250 mg) by mouth daily., Starting Mon02/14/2023, Until Mon03/28/2023, Normal - CT showed multiple small lung nodule, chronic smoker. Lung nodule clinic referral sent. - BPPV, Vestibular therapy sent. - Onychomycosis, terbinafine x 6 weeks, followed by CMP in 4 weeks, normal liver function from lastCMP. Patient was involved and agreeable in shared [...] Neurological: Mental Status: She is alert. Sandro Kerr MD [facility] 02/14/23 4:23 PM * Aaliyah Ortiz MD - 02/14/2023 3:15 PM EDT Images from the original note were not [...] with the resident's assessment and treatment plan. -Aaliyah Ortiz MD, [facility] documented in this encounterSDoctors HospitalYcatff04-25-7697 Telephone encounter Note* Telephone Encounter - Jaci Pulliam - 02/14/2023 1:39 PM EDT Attempted to call pt to reschedule previous No show SEAMAN appointment. Unable to leave a voicemail as mailbox has not been set up. [facility] HospitalTdjyvo31-58-2431 Miscellaneous Notes* Telephone Encounter - Jaci Pulliam - 02/14/2023 1:39 PM EDT Attempted to call pt to reschedule previous No show SEAMAN appointment. Unable to leave a voicemail as mailbox has not been set up. * Telephone Encounter - Rose Ambrosio - 02/13/2023 5:44 PM EDT Name of caller: Yash Contact phone number: [phone] Relationship to Patient: patient Provider: Alee Practice: Pulmonology Chief Complaint/Reason for Call: Patient would like to schedule a new patient appointment. She would like the latest possible time of day available for appt. Please call [phone] Best time of day caller can be reached: any Patient advised that office/PCP has 24-48 business hours to return their call: Yes documented in this encounterSDoctors HospitalAfzmdq77-53-8450 Telephone encounter Note* Telephone Encounter - Rose Ambrosio - 02/13/2023 5:44 PM EDT Name of caller: Yash Contact phone number: [phone] Relationship to Patient: patient Provider: Alee Practice: Pulmonology Chief Complaint/Reason for Call: Patient would like to schedule a new patient appointment. She would like the latest possible time of day available for appt. Please call [phone] Best time of day caller can be reached: any Patient advised that office/PCP has 24-48 business hours to return their call: Yes [facility] HospitalHrwlna89-04-5052 Telephone encounter Note* Telephone Encounter - Judd Cloud - 02/12/2023 11:03 AM EDT Preferred contact number: [phone] Reason for Visit: Pt started a new job and needs to cx and r/s appt for 02.23.23. Please call to r/s Urgency of Appointment: urology Medications in need of refill: n/a [facility] HospitalBfngid21-17-5622 NotePt called into nurse line to schedule a new patient appointment. Referral in chart for multiple lung nodules. Please advise, thank you![facility]08-07-2023 History of Present illness Narrative* Shirin Santiago LPN - 01/16/2023 4:15 PM EDT Patient was able to ambulate safely to the examination room. Provider was not notified of possible fall risk * Shirin Santiago LPN - 01/16/2023 4:15 PM EDT Pt asked if they have been to specialist,been in ER /hospitalized or had testing since last visit. yes * Sandro Kerr MD - 01/16/2023 4:15 PM EDT Images from the original note were not included. [facility] [address] [facility] [address] Dept: [phone] Dept Loc: [phone] Visit type: Established patient Reason for Visit: Results Assessment and Plan 1. Liver lesion - US abdomen limited 2. Multiple lung nodules - [facility] Lung Nodule Clinic SB - [facility] Lung [facility]odule Clinic [facility] 3. Acute bilateral low back pain without sciatica - [facility] Physical Therapy [facility]any [facility] [place] [facility] showed 2mm nodule. HX of hemoptysis. [...] Neurological: Mental Status: She is alert. Sandro Kerr MD [facility] 01/16/23 4:51 PM documented in this [facility]08-07-2023 History of Present illness Narrative* Shirin Santiago LPN - 01/16/2023 4:15 PM EDT Patient was able to ambulate safely to the examination room. Provider was not notified of possible fall risk * Shirin Santiago LPN - 01/16/2023 4:15 PM EDT Pt asked if they have been to specialist,been in ER /hospitalized or had testing since last visit. yes * Sandro Kerr MD - 01/16/2023 4:15 PM EDT Images from the original note were not included. [place] [address] [facility] [address] Dept: [phone] Dept Loc: [phone] Visit type: Established patient Reason for Visit: Results Assessment and Plan 1. Liver lesion - US abdomen limited 2. Multiple lung nodules - [facility] Lung [facility]odule Clinic [facility] - [facility] Lung Nodule Clinic [facility] 3. Acute bilateral low back pain without sciatica - [facility] Physical Therapy Jany [facility] -[facility] showed [...] Neurological: Mental Status: She is alert. Sandro Kerr MD [facility] 01/16/23 4:51 PM * Sarah Mcfarlane MD - 01/16/2023 4:15 PM EDT INDIRECT SUPERVISION THIS SERVICE IS TO BE [...] assessment and treatment plan. documented in this encounterSDoctors HospitalVdvplq74-02-7984 NoteReferral placed again today to Pul.[facility]06-21-2023 Note* Addendum Note - Suly Parker MD - 11/30/2022 8:20 PM EDTAddended by: SULY PARKER on: 11/30/2022 08:20 PM Modules accepted: Orders [facility] [id number] Note* Addendum Note - Suly Parker MD - 11/30/2022 8:20 PM EDTAddended by: SULY PARKER on: 11/30/2022 08:20 PM Modules accepted: Orders [facility] [id number] Miscellaneous Notes* Addendum Note - Suly Parker MD - 11/30/2022 8:20 PM EDTAddended by: SULY PARKER on: 11/30/2022 08:20 PM Modules accepted: Orders * Telephone Encounter - Suly Parker MD - 11/30/2022 8:18 PM EDT Referral placed again today to Pulm. * Telephone Encounter - Suly Parker MD - 11/18/2022 1:39 PM EDT Already called patient back. * Telephone Encounter - Anne Foster LPN - 11/18/2022 11:31 AM EDT Pt states she missed a call and believes it might have been from you. If so she states she is available all day today to discuss xray results. documented in this encounterSDoctors [id number] Telephone encounter Note* Telephone Encounter - Suly Parker MD - 11/30/2022 8:18 PM EDT Referral placed again today to Pulm. [facility] [id number] Telephone encounter Note* Telephone Encounter - Carmen Jacobs LPN - 11/25/2022 4:45 PM EDT Noted. [facility] [id number] Miscellaneous Notes* Telephone Encounter - Carmen Jacobs LPN - 11/25/2022 4:45 PM EDT Noted. * Telephone Encounter - Suly Parker MD - 11/25/2022 1:22 PM EDT Rx sent. Will do peer to peer for CT chest. * Telephone Encounter - Jigna Rodriguez - 11/25/2022 10:38 AM EDT Name of caller: Carmen Contact phone number: [phone] Relationship to Patient: daughter Provider: Dr Parker Practice: [facility] Chief Complaint/Reason for Call: Carmen called in regards to the cough medicine Dr Parker was supposed to send to the [facility] pharmacy when pt was seen on 11/16/22. Said they discussed a lot and Dr Callejas have just forgotten and would like for that to be called in and a call back once done so she isupdated. Thank you. [facility] [address] [place] [address] Best time of day caller can be reached: any Patient advised that office/PCP has 24-48 business hours to return their call: No documented in this encounterSDoctors [id number] Telephone encounter Note* Telephone Encounter - Suly Parker MD - 11/25/2022 1:22 PM EDT Rx sent. Will do peer to peer for CT chest. [facility] [id number] Telephone encounter Note* Telephone Encounter - Paola Dorsey - 11/25/2022 12:03 PM EDT Message released to patient as written. yes Patient's further questions if applicable: none Were all questions from office addressed or relayed to the patient from encounter: Yes [facility] [id number] Miscellaneous Notes* Telephone Encounter - Paola Dorsey - 11/25/2022 12:03 PM EDT Message released to patient as written. yes Patient's further questions if applicable: none Were all questions from office addressed or relayed to the patient from encounter: Yes * Telephone Encounter - Carmen Jacobs LPN - 11/25/2022 10:39 AM EDT Attempted to contact the patient but there was no answer and the voicemail box has not been set up yet. * Telephone Encounter - Sophia Joe - 11/22/2022 1:55 PM EDT Pt is scheduled Monday12/30/2022 at 1:[address] chest and CT abdomen NPO 4 hrs prior to test She will also need to have a creatinine level drawn prior to appt Could not leave a voicemail, will try again later documented in this encounterSDoctors [id number] Telephone encounter Note* Telephone Encounter - Carmen Jacobs LPN - 11/25/2022 10:39 AM EDT Attempted to contact the patient but there was no answer and the voicemail box has not been set up yet. [facility] [id number] Telephone encounter Note* Telephone Encounter - Jigna Rodriguez - 11/25/2022 10:38 AM EDT Name of caller: Carmen Contact phone number: [phone] Relationship to Patient: daughter Provider: Dr Parker Practice: [facility] Chief Complaint/Reason for Call: Carmen called in regards to the cough medicine Dr Parker was supposed to send to the [facility] pharmacy when pt was seen on 11/16/22. Said they discussed a lot and Dr Callejas have just forgotten and would like for that to be called in and a call back once done so she isupdated. Thank you. [facility] [address] [place] [address] Best time of day caller can be reached: any Patient advised that office/PCP has 24-48 business hours to return their call: No [facility] [id number] Telephone encounter Note* Telephone Encounter - Sophia Joe - 11/22/2022 1:55 PM EDT Pt is scheduled Monday12/30/2022 at 1:[address] chest [address] CT abdomen NPO 4 hrs prior to test She will also need to have a creatinine level drawn prior to appt Could not leave a voicemail, will try again later [facility] [id number] NoteChronic findings. No acute pulmonary process. In view of the clinical history, consider CT which ismore sensitive for pulmonary evaluation. Left renal calculus. Report Dictated on Electronically Signed By: Mary Ruano Electronically Signed Date/Time: 11/18/2022 2:52 PM EDT [facility] [id number] Telephone encounter Note* Telephone Encounter - Suly Parker MD - 11/18/2022 1:39 PM EDT Already called patient back. [facility] [id number] Telephone encounter Note* Telephone Encounter - Anne Foster LPN - 11/18/2022 11:31 AM EDT Pt states she missed a call and believes it might have been from you. If so she states she is available all day today to discuss xray results. [facility] [id number] History of Present illness Narrative* Raheel Chi RN - 11/16/2022 2:30 PM EDT Pt asked if they have been to specialist,been in ER /hospitalized or had testing since last visit. ENT * Raheel Chi RN - 11/16/2022 2:30 PM EDT Patient was able to ambulate safely to the examination room. Provider was not notified of possible fall risk * Suly Parker MD - 11/16/2022 2:30 PM EDT [facility] [address] [facility] [address] Dept: [phone] Dept Loc: [phone] Visit type: Established Reason for Visit: Follow-up Assessment and Plan Yash was seen today for follow-up. Diagnoses and all orders for this visit: Hemoptysis (Primary) - XR chest 2 views; Future Colon cancer screening - [facility]; Future Concern for possible underlying malignancy. Will get CXR. Ok to call Daughter regarding result ([phone]). May need further work up with CT chest. Due for colonoscopy. Screen for colon cancer given weight loss as well. Consider repeat DEXA at next follow up visit. Bisphosphonate stopped at last visit. No recent falls. Will hold off on starting bisphosphonate for now. Addendum: - CXR non-revealing. CT chest and CT abdomen ordered. Referral placed to Pulm for further work up -may need bronch. Insurance denying CT chest- attempting [...] ~20lbs during this time. No history of smoking.Did have 2nd hand tobacco exposure growing up. [...] Multiple Vitamins-Minerals (ZINC PO) Take by mouth. dowcfkqv-cxgtcdsvr-bwivxvdzxnmikm (Cortisporin) 3.5-63215-9 otic suspension No facility-administered medications prior to [...] and Summarized Labs: Suly Parker MD PGY-3 Media Production Support Manager 11/17/2022 8:33 PM * Sonny Schmitz MD - 11/16/2022 2:30 PM EDT INDIRECT SUPERVISION THIS SERVICE IS TO BE [...] assessment and treatment plan. documented in this [facility]05-19-2023 Telephone encounter Note* Telephone Encounter - Suly Parker MD - 10/28/2022 8:18 AM EDT Noted. Thanks. [facility] [id number] Miscellaneous Notes* Telephone Encounter - Suly Parker MD - 10/28/2022 8:18 AM EDT Noted. Thanks. * Telephone Encounter - Kamille Roman - 10/27/2022 1:31 PM EDT Name of caller: yash Contact phone number: [phone] Relationship to Patient: patient Provider: Dr. Bernardo Practice: [facility] Chief Complaint/Reason for Call: pt called in states pcp wanted info on he ent , it is [facility],and their phone is [phone] Best time of day caller can be reached: AM Patient advised that office/PCP has 24-48 business hours to return their call: Yes documented in this [facility]05-18-2023 Telephone encounter Note* Telephone Encounter - Kamille Roman - 10/27/2022 1:31 PM EDT Name of caller: yash Contact phone number: [phone] Relationship to Patient: patient Provider: Dr. Bernardo Practice: [facility] Chief Complaint/Reason for Call: pt called in states pcp wanted info on he ent , it is [facility],and their phone is [phone] Best time of day caller can be reached: AM Patient advised that office/PCP has 24-48 business hours to return their call: Yes [facility] [id number] Telephone encounter Note* Telephone Encounter - Anabel Dia - 09/19/2022 1:06 PM EDT Scheduled patient for 10/25/22. [facility] [id number] Miscellaneous Notes* Telephone Encounter - Anabel Dia - 09/19/2022 1:06 PM EDT Scheduled patient for 10/25/22. * Telephone Encounter - Velvet Cook RN - 09/15/2022 2:02 PM EDT Called patient to reschedule her 10/26/[address] Parker due to him being out of the office. Patient stated that she will check her schedule at work tonight and call us back tomorrow. Patient asked for refill on Boniva. Refill request sent to Dr. Bernardo. documented in this [facility]04-06-2023 Miscellaneous Notes* Telephone Encounter - Velvet Cook RN - 09/15/2022 2:02 PM EDT Called patient to reschedule her 10/26/[address] Parker due to him being out of the office. Patient stated that she will check her schedule at work tonight and call us back tomorrow. Patient asked for refill on Boniva. Refill request sent to Dr. Bernardo. documented in this [facility]04-06-2023 Telephone encounter Note* Telephone Encounter - Velvet Cook RN - 09/15/2022 2:02 PM EDT Called patient to reschedule her 10/26/[address] Parker due to him being out of the office. Patient stated that she will check her schedule at work tonight and call us back tomorrow. Patient asked for refill on Boniva. Refill request sent to Dr. Bernardo. [facility] [id number] History of Present illness Narrative* Donna Arroyo RN - 08/22/2022 10:20 AM EDT Pt states she tolerates betadine prep well. UROJET 6 ML urethra [facility] 65976-597-87 LOT # [id number] s2 EXPIRES 11/03 ADMIN BY [place] Pt tolerated well * Julianne Joya DO - 08/22/2022 10:20 AM EDT Cystoscopy with ureteral stent removal Procedure Note Pre-operative Diagnosis: left [...] renal US Julianne Joya DO Reconstructive Urology [address], [address] [place] [address] Office: Fax: documented in this [facility]03-13-2023 Instructions* Patient Instructions* Julianne Joya DO - 08/22/2022 10:20 AM EDT Images from the original note were not included. Kidney Stone Diet Instructions What is a kidney stone? A kidney stone is a hard mass that forms from crystals in the urine. These crystals form when substances in the urine (such as calcium, oxalates, and phosphorus) become highly concentrated in the urine. Approximately 1 in every 1,000 adults are hospitalized each year for kidney stones. Kidney stones may remain in the kidney, or they can move down the ureter into the bladder. When kidney stones move, they cause pain in the back and side which may radiate to the lower abdomen. If these stones are small (less than 5 mm), they may pass on their own. If they are larger, they may require surgery to remove them. Are all kidney stones the same? No. There are 4 main types of kidney stones. Calcium Stones are the most common type of kidney stones. They are formed from high calcium and high oxalate excretion, and when the pH for the urine if high (alkaline). Oxalates are found naturally in many foods, including fruits and vegetables, nuts and seeds, grains, legumes, chocolate and tea. Calcium in the digestive tract binds to oxalates from foods and keep it from entering the blood. This extra calcium is then excreted by the kidneys into the urine, where it can form stones. Uric Acid Stones form when the urine is acidic. A diet rich in animal protein (such as meats, fish and shellfish) may increase uric acid in the urine. Struvite Stones can result from recurrent kidney infections. Cysteine Stones result from a genetic disorder that causes cysteine to leak through the kidneys andinto the urine, which then form crystals. Who is at risk for developing kidney stones? History of intestinal surgery or difficulty digesting fat, as seen after bariatric surgery. Intestinal malabsorption syndromes, leaky gut Recent or heavy antibiotic use Hyperparathyroidism Diet high in oxalate containing foods Dehydration, prolonged constipation or diarrhea Pancreatic insufficiency Congenital malformations of the urinary tract What can I do to prevent kidney stones? Staying well hydrated by drinking enough water is one of the best measures you can take to avoid kidney stones. It is very important that you drink at least 3 quarts (12 cups) of fluid throughout theday. Get the Calcium you need: too little calcium in your diet can cause oxalate levels to rise. To prevent this, make sure that you are getting the amount of calcium that is appropriate for your age. Reduce Sodium intake. Sodium increases the amount of calcium in your urine. Current guidelines suggest limiting your sodium intake to 2300 mg daily. Limit animal protein. Eating too much protein (such as with a low-carbohydrate diet), boosts uric acid levels and could lead to kidney stones. Is there a special diet I can follow to help prevent me from having more kidney stones? You may be asked to make changes in the amount of salt (sodium), calcium, oxalate, protein, citrate, potassium and fluid in your diet. You may need to see a registered nurse hh case manager to help make some of these changes. Extra sodium results in an increase in calcium excretion in your urine, putting you at risk for developing a stone. If you have high calcium in your urine then it may be helpful to reduce your sodiumintake. Reducing dietary oxalates can help reduce the formation of stones, especially if other treatments do not help. Low Oxalate Diet Foods Low in Oxalate (eat as desired) Foods moderately high in Oxalates (Eat in moderation) Foods High in Oxalates (limit servings of these foods) Apple Juice Avocado Lopez Bananas Beef (lean) Rose Cherries Brussel Sprouts Cabbage Cauliflower Cheese Eggs Grapefruit Green Grapes Jellies Cevallos Lemonade or Limeade Melons Milk Mushrooms Pork Poultry Preserves Nectarines Noodles Oatmeal Oils Onions Peas (fresh) Plums Radishes Rice Salad Dressing Seafood Spaghetti White Bread Wine Yogurt Apple Apricots Asparagus Bottled Veer Broccoli Carrots Chicken Noodle Soup (dried) Coffee Cola beverages [place]/ cornbread [place] Lettuce Mac Beans Marmalade Oranges Yabucoa Parsnips Peaches Pears Peas Pepper Pineapple Plums Prunes Sardines Soy Products Sponge Cake Tomatoes Tomato juice Turnip Watercress Beans Beer Beets Blackberries Black and Red Raspberries Blueberries Celery Chard Chocolate Danbury Coffee Powder Collards [place] Grapes Crackers made from Soy Flour Currants Dandelion Greens Eggplant Escarole Fruit Cake Fruit Salad (canned) Green Echols Pepper Grits Juices containing berries Kale Leeks Lemon and Rampart Peel Nuts (peanuts and pecans) Okra Ovaltine Parsley Pokeweed Rhubarb Rutabagas Spinach Strawberries Summer Squash Sweet Potatoes Tea Tofu Tomato Soup Wheat Germ [facility]- UROLOGY CYSTOSCOPY INSTRUCTIONS You are scheduled for a cystoscopy on . The cystoscopy will be performed in the office. When you have a urinary problem, your doctor may use a cystoscope to look inside your bladder and urethra. The cystoscope is like a tiny camera that allows the doctor to look at the inside of your bladder, remove stents, or place catheters while you are in the office. Your doctor may recommend cystoscopy for any of the following conditions: frequency UTI s, blood inyour urine, loss of bladder control (incontinence), unusual cells found in your urine, painful urination or pelvic pain, urinary blockage or stone in the urinary tract, or a unusual growth, polyp or tumor in the urinary tract. You may be asked to give a urine sample before the test to check for infection or to look at your bladder cells. During the cystoscopy, you will be laying on the examination table with a sterile drape over your lower body. All clothing must be removed from the waist down. For females, your feet will be in stirrups, similar to when you have a pelvic exam. A nurse will clean around the area around your urethral opening and apply local anesthetic as needed. The cystoscope, which is about the diameter of a pencil, will be gently inserted into your urethra.Sterile water will slow through the cystoscope into your bladder, slowly filling it so that the doctor can more easily visualize the inside of your bladder. You may feel some discomfort and the urge to urinate. In most cases, the entire examination, including preparation takes about 15 to 20 minutes. After the examination: You may have a mild burning feeling when you urinate. You may see small amounts of blood in your urine for the first day after the procedure. To relieve discomfort, increase your fluid intake for the first 1-2 days. Your doctor may give you an antibiotic to take for 1-2 days to prevent infection. You may resume a normal diet and shower/ bath. Call your doctor if you notices: A fever over 101 degrees. Excessive blood in your urine, or passing blood clots. Pain in your bladder. If you cannot urinate or feel that you are not emptying your bladder If you have questions, please contact our office at . documented in this [facility]03-07-2023 Hospital Discharge instructions* Discharge Instructions* Julianne Joya DO - 08/16/2022 5:01 PM EST Images from the original note were not included. Laser Lithotripsy These are general instructions for you to follow after your surgery. Your doctor or a member of hisor her staff will outline any additional or special instructions that pertain to you. What is a Laser Lithotripsy? A laser lithotripsy is a method for using lasers to remove stones that are located in the urinary tract. This could include stones in the bladder, kidneys, ureters, or urethra. A small flexible camera called a ureteroscope is inserted into the urethra and up the ureter until it reaches the locationof the kidney stone. The doctor can then use a laser to break up a kidney stone and a small basket to remove small stones or stone fragments. A ureteral stent is often left in place after the procedure to help with healing. What are the advantages of laser lithotripsy? Laser lithotripsy is a minimally invasive procedure, and does not involve any incisions. It has been shown to be effective no matter the size, location, and/ or hardness of the stone. It also reduces the risk of steinstrasse (where several stones fragments line up in the ureter and block urine flow). How long does surgery take? Surgery will take 1-2 hours to complete. Will I have to stay in the hospital? No. This is an outpatient procedure, so you should be able to go home the same day that the procedure is performed. Are there risks with a laser lithotripsy procedure? There are risks with any surgical procedure. Risks of laser lithotripsy in particular include pain, blood in the urine, difficulty urinating, injury to the bladder or ureters when removing the stone, and infection. General anesthesia also has the risk of breathing problems, heart attack and stroke in patients who are high risk. Before Surgery: - A packet of information will be sent to you. It contains helpful information, details about how to prepare for surgery, and where to arrive on the day of surgery. Maps and local hotel information are sent to persons from out of town. If you have questions or have not received this information, please call our office at . - All patients having surgery will need a physical completed to clear them medically for surgery. Pre-operative testing is completed approx. 1-2 weeks before your planned surgery. These tests will bedone either at your pre- operative day at [facility], [facility], or with your regular doctor. - Some patients may require additional testing such as a stress test or cardiac clearance. - At the time of your pre-operative visit the following tests may be completed: Blood work, an EKG,and/ or a Chest X-ray - The day before your surgery you will need to call the surgical scheduling office to confirm your arrival time. - Do NOT eat or drink anything after midnight the night before your surgery. Medications: - Your information packet will contain a list of medications that need to be stopped before surgery. - Stop taking all herbal remedies 2 weeks before your surgery. - Please make certain that we know if you take medication that affected bleeding or is a blood thinner. Examples of these include Coumadin, Warfarin or Plavix. A safe plan will need to be made about how and when you take this medication near the time of your surgery. The Day of Surgery - Please report to the designated area at your confirmed arrival time. - Before you are taken to the operating room, you will change into a gown and have an IV started. - An anesthesiologist will come speak with you about the surgery and answer any questions that you may have. - Your family may stay with you in the pre-op area until you are taken to the operating room. Home Going Instructions: Activity: You are encouraged to walk every day, increasing the distance each day. You may go up anddown steps, but please rest when you are tired. - Do NOT drive for 2-3 weeks after surgery or until you are not taking pain medications. You may ride in a car or plane. Be sure to get up and walk every 1- 2 hours when traveling long distances. - Avoid strenuous activity for 1-2 days after surgery (running, jumping, lifting more than 10 lbs.)After that, NO limitations regarding lifting. Diet and Fluid Intake: Eating a well balanced diet is important. If you were on a specific diet before your surgery, you should return to that diet. Otherwise, there are no diet restrictions after surgery. Do NOT drink alcoholic beverages while taking pain medications. Drink at least 8 glasses of fluid per day, preferably water. Bowel Management: Constipation sometimes occurs after surgery, especially when taking pain medication. Eating a well-balanced diet and maintaining a good fluid intake are often all that is necessary to return to you pre-surgical bowel regimen. It is important not to strain excessively when having a bowel movement for the first several weeks following your surgery. A stool softener such as Colace may be helpful. You can purchase stool softeners without a prescription at your local drug store. If a stool softener is not enough to relieve your constipation, you may try taking Milk of Magnesia. You may use over the counter medicine, such a Gas-X, if you experience gas pains after surgery. Ureteral Stent: Most people experience some discomfort with a stent in place. Common symptoms include back pain, urinary frequency and urgency. Some people report burning with urination as well. You may see some blood off and on in your urine, especially after you are active. While these symptoms are common with a stent, if you are having a lot of pain that is not controlled with oral medications, please call our office to discuss your symptoms. Showering: You may shower when you get home from the hospital. Ok to swim and use a tub as well as long as the stent placed does not have a string attached. Pain Medications: Your doctor will prescribe the appropriate pain medication for you. Take these pills only as directed and only if you need them. If you are experiencing mild discomfort, you should take Tylenol or Ibuprofen. NEVER mix alcohol with prescription pain medications. Pain medication may make you drowsy. Do not take pain medication when doing any activity that requires coordination, such as driving. Infection: Report the following warning signs of infection to your doctor immediately: A temperature of 100.4 degrees or greater --> Proceed to ER immediately Unable to urinate. Sudden onset of increased pain or tenderness Increased amount of blood in the urine, or passing large blood clots Miscellaneous It is normal for you to have minor discomfort after your surgery. However, if there are any significant changes in your condition--such as shortness of breath, difficulty breathing, or pain or unevenswelling in your legs--please go to the Emergency Room immediately Return to Work: If you work in an office and are not lifting or doing strenuous activity, you may return to work when comfortable. If your work involves strenuous activity, you may need more time before returning to work. If necessary, our office can provide a letter stating the date that you may return to work. Follow-up Appointments Follow-up appointments will be scheduled by our office. If you have any questions, please call . Ureteral Stent Placement A ureteral stent may be placed for to alleviate swelling around your kidney caused by a blockage. Before Surgery: - A packet of information will be sent to you. It contains helpful information, details about how to prepare for surgery, and where to arrive on the day of surgery. Maps and local hotel information are sent to persons from out of town. If you have questions or have not received this information, please call our office at . - All patients having surgery will need a physical completed to clear them medically for surgery. Pre-operative testing is completed approx. 1-2 weeks before your planned surgery. These tests will bedone either at your pre- operative day at [facility], [facility], or with your regular doctor. - Some patients may require additional testing such as a stress test or cardiac clearance. - At the time of your pre-operative visit the following tests may be completed: Blood work, an EKG,and/ or a Chest X-ray - The day before your surgery you will need to call the surgical scheduling office to confirm your arrival time. - NO FOOD (including candy, mints or gum), milk or milk products after midnight the night before surgery. - We encourage you to drink clear fluids up to 2 hours before your surgery including water, pulp-free juice (no orange juice), soda, clear tea, black coffee (no creamer or coffee). Medications: - Your information packet will contain a list of medications that need to be stopped before surgery. - Do not take Aspirin, Motrin or Ibuprofen for 2 weeks before surgery. - Stop taking all herbal remedies 2 weeks before your surgery. - Please make certain that we know if you take medication that affected bleeding or is a blood thinner. Examples of these include Coumadin, Warfarin or Plavix. A safe plan will need to be made about how and when you take this medication near the time of your surgery. The Day of Surgery - Please report to the designated area at your confirmed arrival time. - Before you are taken to the operating room, you will change into a gown and have an IV started. - An anesthesiologist will come speak with you about the surgery and answer any questions that you may have. - Your family may stay with you in the pre-op area until you are taken to the operating room. Home Going Instructions: Ureteral Stent: Most people experience some discomfort with a stent in place. Common symptoms include back pain, urinary frequency and urgency. You may see some blood off and on in your urine, especially after you are active. While these symptoms are common with a stent, if you are having a lot of pain, please call our office to discuss your symptoms. Infection: Report the following warning signs of infection to your doctor immediately: A temperature of 101 degrees or greater Unable to urinate. Sudden onset of increased pain or tenderness Increased amount of blood in the urine, or passing large blood clots Miscellaneous It is normal for you to have minor discomfort after your surgery. However, if there are any significant changes in your condition--such as shortness of breath, difficulty breathing, or pain or unevenswelling in your legs--please go to the Emergency Room. Return to Work: If you work in an office and are not lifting or doing strenuous activity, you may return to work when comfortable. If your work involves strenuous activity, you may need more time before returning to work. If necessary, our office can provide a letter stating the date that you may return to work. Follow-up Appointments The stent may stay in place for up to 4-6 months and may be removed after this time period or be exchanged in surgery. Your doctor will decide if and when this need to be performed. Follow-up appointments will be scheduled by our office. If you have any questions, please call . * Attachments The following attachments cannot be sent through Care Everywhere. * Laser Lithotripsy for Kidney Stones Discharge Instructions (Cameroonian) documented in this [facility]03-07-2023 Attending History and physical note* Julianne Joya DO - 08/16/2022 2:40 PM EST Images from the original note were not included. Interval History and Physical I have interviewed and examined the patient and reviewed the recent History and Physical. There have been no changes to the recent H&P documentation. The patient understands the planned operation and its associated risks and benefits and agrees to proceed. The surgical consent form has been signed. BP (!) 144/74 Pulse 70 Temp 35.8 C (96.5 F) (Temporal) Resp 16 Ht 5' 4 (1.626 m) Wt 160 lb (72.6 kg) SpO2 97% BMI 27.46 kg/m Impression: left renal and ureteral calculus and stent Plan: cysto left ureteroscopy with laser lithotripsy and stent change vs removal All aspects of the procedure, along with the pros & cons of intervention and the potential associated risks & complications have been discussed with the patient, any questions have been answered, and informed consent has been obtained. Electronically signed by @JAHAIRA@ on @TDNR@ at @NOWNR@ H&P reviewed. The patient was examined and there are no changes to the H&P. Source Note - ANGEL Salazar CNP - 07/21/2022 12:06 PM EST ANGEL Arias CNP 07/21/2022 at 12:06 PM Urology Progress Note [...] VS: BP 132/60 Pulse 67 Temp 37.4 C (99.3 F) (Temporal) Resp 18 Ht 5' 4 (1.626 m) Wt 161 lb (73 kg) SpO2 93% BMI 27.64 kg/m I & O - 24hr: Intake/Output Summary [...] Studies Labs: CBC: Recent Labs 07/19/22 0208 07/20/227 07/21/22 0422 WBC 7.5 6.0 5.0 HGB [...] minutes reviewing previous notes, test results and discussingthe diagnosis and importance of compliance with the treatment plan as well as documenting on the day of the visit. --Jesus Cabello CNP, APRN on 07/21/2022 at 12:06 PM An electronic signature was used to authenticate this note. I wore an N-95 mask during the entire visit with patient. Gloves were worn with physical contact ofpatient. [facility] [id number] History and physical note* Julianne Joya, - 08/16/2022 2:40 PM EST Images from the original note were not included. Interval History and Physical I have interviewed and examined the patient and reviewed the recent History and Physical. There have been no changes to the recent H&P documentation. The patient understands the planned operation and its associated risks and benefits and agrees to proceed. The surgical consent form has been signed. BP (!) 144/74 Pulse 70 Temp 35.8 C (96.5 F) (Temporal) Resp 16 Ht 5' 4 (1.626 m) Wt 160 lb (72.6 kg) SpO2 97% BMI 27.46 kg/m Impression: left renal and ureteral calculus and [...] there are no changes to the H&P. Source Note - ANGEL Salazar CNP - 07/21/2022 12:06 PM EST ANGEL Arias CNP 07/21/2022 at 12:06 PM Urology Progress Note [...] VS: BP 132/60 Pulse 67 Temp 37.4 C (99.3 F) (Temporal) Resp 18 Ht 5' 4 (1.626 m) Wt 161 lb (73 kg) SpO2 93% BMI 27.64 kg/m I & O - 24hr: Intake/Output Summary [...] minutes reviewing previous notes, test results and discussingthe diagnosis and importance of compliance with the treatment plan as well as documenting on the day of the visit. --Jesus Cabello CNP, APRN on 07/21/2022 at 12:06 PM An electronic signature was used to authenticate this note. I wore an N-95 mask during the entire visit with patient. Gloves were worn with physical contact ofpatient. documented in this [facility]03-07-2023 Miscellaneous Notes* Op Note - Julianne Joya DO - 08/16/2022 2:40 PM EST UROLOGY OPERATIVE REPORT PATIENT NAME: Yash Francois DATE OF : 1945 TODAY'S DATE: 08/16/2022 PreOp Dx: Left ureteral and renal calculi, left ureteral stent PostOp Dx: Same Operation: Cystoscopy Left ureteroscopy with laser lithotripsy Left retrograde pyelogram Left ureteral stent exchange Surgeon: Julianne Joya DO Barrel Inspector Tight: Jonathan Adler MD PGY2 Anesthesia: General EBL: Minimal Wound classification: Clean contaminated Implants: 6 Kazakh by 24 cm double-J left ureteral stent Drains/Packing: None Valdez: None Specimens: None sent Complications: none apparent Condition: Stable to PACU Indication for Procedure: Yash Francois is a 76 y.o. female who presents with left ureteral and renal calculi after left ESWL and stent placement. She had been treated for bacteremia last month, presents today for definitive stone management after having been treated for her infection. After having a discussion on treatment options, risks and benefits, the patient wishes to proceed forward with surgical intervention Description of Procedure: Patient was brought to the operating room and placed on the operative table. Induction per anesthesia. Ancef was administered preoperative antibiotic, positioned dorsolithotomy fashion. Patient was then prepped and draped in the normal sterile fashion, a timeout was performed and all parties were in agreement. X-ray was performed, this reveals an indwelling left ureteral stent, using the rigid cystoscope we atraumatically into the bladder. Within the bladder stent is seen coming from the left ureteral orifices. There are no masses stones or lesions within the remaining portion of the urinary bladder. Stent is noted to be highly calcified. A sensor wire was passed alongside the stent and then the stent was grasped with a grasping forceps and withdrawn. Semirigid ureteroscope was used to perform ureteroscopy. Within the ureter we identified several large stone fragments. 200 m Chapo holmium laser fiber was used to perform stone dusting. Once we were able to dust the distal stones, a second wire wasused to guide the scope into the proximal ureter. We are able to pass our scope then up to the ureteropelvic junction. As the CT scan had indicated possible renal stones as well we elected to performpyeloscopy. The semirigid scope was removed. Flexible ureteroscope was passed over the sensor wire while maintaining our Glidewire for safety. Within the bladder we did identify a couple of stones whi ch were dusted using the holmium laser fiber. Contrast was injected through the scope to perform pyelogram. No additional filling defects were identified. Renal pelvis was opacified. We maintained the Glidewire we removed our flexible ureteroscope. A 6 Kazakh by 24 cm JJ stent was selected and passed over the wire and positioned with the proximal curl in the left renal pelvis and the distal curl directly visualized within the urinary bladder. Bladder was drained and the scope was withdrawn Patient was awakened from anesthesia and transferred to the recovery room in stable condition Plan: Discharge home with oral antibiotics. Follow-up as scheduled for cystoscopy stent removal in the office next week * Brief Op Note - Jonathan Adler MD - 08/16/2022 2:40 PM EST Date: 08/16/2022 Location: [facility] Name: Yash FrancoisDOB: 1945, Diagnosis Pre-op Diagnosis * Calculus of kidney [N20.0] * Calculus of ureter [N20.1] Post-op Diagnosis * Calculus of kidney [N20.0] * Calculus of ureter [N20.1] Procedures CYSTOSCOPY AND RETROGRADE PYELOGRAM, LEFT URETEROSCOPY LASER LITHOTRIPSY, LEFT URETERAL STENT CHANGE 44396 - RI CYSTO BLADDER W/URETERAL CATHETERIZATION CYSTOSCOPY WITH URETEROSCOPY AND OR PYELOSCOPY WITH REMOVAL OR MANIPULATION CALCULUS WITH LITHOTRIPSY 49670 - RI CYSTO W/URETEROSCOPY W/LITHOTRIPSY CYSTOSCOPY WITH INSERTION URETERAL STENT 76360 - RI CYSTO W/INSERT URETERAL STENT Surgeons * Julianne Joya - Primary Procedure Summary Anesthesia: General ASA: III Estimated Blood Loss: None Drains: * None in log * Implants Type Name Action Serial No. Stent STENT URET 6FR 24CM WO GW - [id number] Implanted Staff: Rn Medicare: Khadijah Henderson RN Relief Rn Medicare: Haleigh Ovalle Relief Scrub: Khadijah Henderson RN Scrub Person: Gloria Mcbride Findings: per op note Complications: None; patient tolerated the procedure well. Specimens Collected: Order Name Source Comment Collection Info Order Time POTASSIUM WITH MG REFLEX For patients on dialysis to draw potassium day of surgery 08/16/2022 12:04 PM PROTHROMBIN TIME If patient on coumadin within 4 days prior. 08/16/2022 12:04 PM Wound Class: Class II: Clean-Contaminated Blood Products: None Prophylactic Antibiotics: Procedure appropriate prophylactic antibiotic(s) given within 1 hour of surgical incision (two hours if receiving Vancomycin or flouroquinolone) documented in this [facility]03-07-2023 Note* Op Note - Julianne Joya DO - 08/16/2022 2:40 PM EST UROLOGY OPERATIVE REPORT PATIENT NAME: Yash Francois DATE OF : 1945 TODAY'S DATE: 08/16/2022 PreOp Dx: Left ureteral and renal calculi, left ureteral stent PostOp Dx: Same Operation: Cystoscopy Left ureteroscopy with laser lithotripsy Left retrograde pyelogram Left ureteral stent exchange Surgeon: Julianne Joya DO Barrel Inspector Tight: Jonathan Adler MD PGY2 Anesthesia: General EBL: Minimal Wound classification: Clean contaminated Implants: 6 Kazakh by 24 cm double-J left ureteral stent Drains/Packing: None Valdez: None Specimens: None sent Complications: none apparent Condition: Stable to PACU Indication for Procedure: Yash Francois is a 76 y.o. female who presents with left ureteral and renal calculi after left ESWL and stent placement. She had been treated for bacteremia last month, presents today for definitive stone management after having been treated for her infection. After having a discussion on treatment options, risks and benefits, the patient wishes to proceed forward with surgical intervention Description of Procedure: Patient was brought to the operating room and placed on the operative table. Induction per anesthesia. Ancef was administered preoperative antibiotic, positioned dorsolithotomy fashion. Patient was then prepped and draped in the normal sterile fashion, a timeout was performed and all parties were in agreement. X-ray was performed, this reveals an indwelling left ureteral stent, using the rigid cystoscope we atraumatically into the bladder. Within the bladder stent is seen coming from the left ureteral orifices. There are no masses stones or lesions within the remaining portion of the urinary bladder. Stent is noted to be highly calcified. A sensor wire was passed alongside the stent and then the stent was grasped with a grasping forceps and withdrawn. Semirigid ureteroscope was used to perform ureteroscopy. Within the ureter we identified several large stone fragments. 200 m Chapo holmium laser fiber was used to perform stone dusting. Once we were able to dust the distal stones, a second wire wasused to guide the scope into the proximal ureter. We are able to pass our scope then up to the ureteropelvic junction. As the CT scan had indicated possible renal stones as well we elected to performpyeloscopy. The semirigid scope was removed. Flexible ureteroscope was passed over the sensor wire while maintaining our Glidewire for safety. Within the bladder we did identify a couple of stones whi ch were dusted using the holmium laser fiber. Contrast was injected through the scope to perform pyelogram. No additional filling defects were identified. Renal pelvis was opacified. We maintained the Glidewire we removed our flexible ureteroscope. A 6 Kazakh by 24 cm JJ stent was selected and passed over the wire and positioned with the proximal curl in the left renal pelvis and the distal curl directly visualized within the urinary bladder. Bladder was drained and the scope was withdrawn Patient was awakened from anesthesia and transferred to the recovery room in stable condition Plan: Discharge home with oral antibiotics. Follow-up as scheduled for cystoscopy stent removal in the office next week [facility] [id number] Note* Brief Op Note - Jonathan Adler MD - 08/16/2022 2:40 PM EST Date: 08/16/2022 Location: [facility] Name: Yash DO AlessandroB: 1945, Diagnosis Pre-op Diagnosis * Calculus of kidney [N20.0] * Calculus of ureter [N20.1] Post-op Diagnosis * Calculus of kidney [N20.0] * Calculus of ureter [N20.1] Procedures CYSTOSCOPY AND RETROGRADE PYELOGRAM, LEFT URETEROSCOPY LASER LITHOTRIPSY, LEFT URETERAL STENT CHANGE 36138 - RI CYSTO BLADDER W/URETERAL CATHETERIZATION CYSTOSCOPY WITH URETEROSCOPY AND OR PYELOSCOPY WITH REMOVAL OR MANIPULATION CALCULUS WITH LITHOTRIPSY 61832 - RI CYSTO W/URETEROSCOPY W/LITHOTRIPSY CYSTOSCOPY WITH INSERTION URETERAL STENT 99908 - RI CYSTO W/INSERT URETERAL STENT Surgeons * Julianne Joya - Primary Procedure Summary Anesthesia: General ASA: III Estimated Blood Loss: None Drains: * None in log * Implants Type Name Action Serial No. Stent STENT URET 6FR 24CM WO GW - [id number] Implanted Staff: Rn Medicare: Khadijah Henderson RN Relief Rn Medicare: Haleigh Ovalle Relief Scrub: Khadijah Henderson RN Scrub Person: Gloria Mcbride Findings: per op note Complications: None; patient tolerated the procedure well. Specimens Collected: Order Name Source Comment Collection Info Order Time POTASSIUM WITH MG REFLEX For patients on dialysis to draw potassium day of surgery 08/16/2022 12:04 PM PROTHROMBIN TIME If patient on coumadin within 4 days prior. 08/16/2022 12:04 PM Wound Class: Class II: Clean-Contaminated Blood Products: None Prophylactic Antibiotics: Procedure appropriate prophylactic antibiotic(s) given within 1 hour of surgical incision (two hours if receiving Vancomycin or flouroquinolone) [facility] [id number] Note* Op Note - Julianne Joya DO - 08/16/2022 2:40 PM EST UROLOGY OPERATIVE REPORT PATIENT NAME: Yash Francois DATE OF : 1945 TODAY'S DATE: 08/16/2022 PreOp Dx: Left ureteral and renal calculi, left ureteral stent PostOp Dx: Same Operation: Cystoscopy Left ureteroscopy with laser lithotripsy Left retrograde pyelogram Left ureteral stent exchange Surgeon: Julianne Joya DO Barrel Inspector Tight: Jonathan Adler MD PGY2 Anesthesia: General EBL: Minimal Wound classification: Clean contaminated Implants: 6 Kazakh by 24 cm double-J left ureteral stent Drains/Packing: None Valdez: None Specimens: None sent Complications: none apparent Condition: Stable to PACU Indication for Procedure: Yash Francois is a 76 y.o. female who presents with left ureteral and renal calculi after left ESWL and stent placement. She had been treated for bacteremia last month, presents today for definitive stone management after having been treated for her infection. After having a discussion on treatment options, risks and benefits, the patient wishes to proceed forward with surgical intervention Description of Procedure: Patient was brought to the operating room and placed on the operative table. Induction per anesthesia. Ancef was administered preoperative antibiotic, positioned dorsolithotomy fashion. Patient was then prepped and draped in the normal sterile fashion, a timeout was performed and all parties were in agreement. X-ray was performed, this reveals an indwelling left ureteral stent, using the rigid cystoscope we atraumatically into the bladder. Within the bladder stent is seen coming from the left ureteral orifices. There are no masses stones or lesions within the remaining portion of the urinary bladder. Stent is noted to be highly calcified. A sensor wire was passed alongside the stent and then the stent was grasped with a grasping forceps and withdrawn. Semirigid ureteroscope was used to perform ureteroscopy. Within the ureter we identified several large stone fragments. 200 m Chapo holmium laser fiber was used to perform stone dusting. Once we were able to dust the distal stones, a second wire wasused to guide the scope into the proximal ureter. We are able to pass our scope then up to the ureteropelvic junction. As the CT scan had indicated possible renal stones as well we elected to performpyeloscopy. The semirigid scope was removed. Flexible ureteroscope was passed over the sensor wire while maintaining our Glidewire for safety. Within the bladder we did identify a couple of stones whi ch were dusted using the holmium laser fiber. Contrast was injected through the scope to perform pyelogram. No additional filling defects were identified. Renal pelvis was opacified. We maintained the Glidewire we removed our flexible ureteroscope. A 6 Kazakh by 24 cm JJ stent was selected and passed over the wire and positioned with the proximal curl in the left renal pelvis and the distal curl directly visualized within the urinary bladder. Bladder was drained and the scope was withdrawn Patient was awakened from anesthesia and transferred to the recovery room in stable condition Plan: Discharge home with oral antibiotics. Follow-up as scheduled for cystoscopy stent removal in the office next week [facility] [id number] Note* Brief Op Note - Jonathan Adler MD - 08/16/2022 2:40 PM EST Date: 08/16/2022 Location: [facility] Name: Yash Francois, : 1945, Diagnosis Pre-op Diagnosis * Calculus of kidney [N20.0] * Calculus of ureter [N20.1] Post-op Diagnosis * Calculus of kidney [N20.0] * Calculus of ureter [N20.1] Procedures CYSTOSCOPY AND RETROGRADE PYELOGRAM, LEFT URETEROSCOPY LASER LITHOTRIPSY, LEFT URETERAL STENT CHANGE 02058 - RI CYSTO BLADDER W/URETERAL CATHETERIZATION CYSTOSCOPY WITH URETEROSCOPY AND OR PYELOSCOPY WITH REMOVAL OR MANIPULATION CALCULUS WITH LITHOTRIPSY 94840 - RI CYSTO W/URETEROSCOPY W/LITHOTRIPSY CYSTOSCOPY WITH INSERTION URETERAL STENT 89753 - RI CYSTO W/INSERT URETERAL STENT Surgeons * Julianne Joya - Primary Procedure Summary Anesthesia: General ASA: III Estimated Blood Loss: None Drains: * None in log * Implants Type Name Action Serial No. Stent STENT URET 6FR 24CM WO GW - [id number] Implanted Staff: Rn Medicare: Khadijah Henderson RN Relief Rn Medicare: Haleigh Ovalle Relief Scrub: Khadijah Henderson RN Scrub Person: Gloria Mcbride Findings: per op note Complications: None; patient tolerated the procedure well. Specimens Collected: Order Name Source Comment Collection Info Order Time POTASSIUM WITH MG REFLEX For patients on dialysis to draw potassium day of surgery 08/16/2022 12:04 PM PROTHROMBIN TIME If patient on coumadin within 4 days prior. 08/16/2022 12:04 PM Wound Class: Class II: Clean-Contaminated Blood Products: None Prophylactic Antibiotics: Procedure appropriate prophylactic antibiotic(s) given within 1 hour of surgical incision (two hours if receiving Vancomycin or flouroquinolone) [facility] [id number] History of Present illness Narrative* Aiyana Moss, DRY CELL TESTER - TIME PIECE REPAIRER - 08/05/2022 9:00 AM EST Images from the original note were not included. [facility] Cardiology Office Note DATE of SERVICE: 08/05/22 TIME of SERVICE: 9:38 AM Reason for Visit: Chief Complaint Patient presents with Hospital Follow-up History ofPresent Illness: Yash Francois is a 76 y.o. female who presents in office today after her recent admission to [facility] 07/17/2022-07/23/2022. She had presented due to a UTI, recent kidney stone with ureteral stent, she experienced a bacteremia due to the infected stone. While admitted she was found to have gone into paroxysmal atrial fibrillation in which she is spontaneously converted to a normal sinusrhythm. Her A-fib was felt likely to be situational in the setting of her infection. It was decidednot to initiate oral anticoagulation. She was initiated [...] daily. 3. Follow-up-3 months and as needed. Aiyana Moss APRN/SAFIA documented in this [facility]02-24-2023 History of Present illness Narrative* ANGEL Castro CNP - 08/05/2022 9:00 AM EST Images from the original note were not included. [facility] Cardiology Office Note DATE of SERVICE: 08/05/22 TIME of SERVICE: 9:38 AM Reason for Visit: Chief Complaint Patient presents with Hospital Follow-up History ofPresent Illness: Yash Francois is a 76 y.o. female who presents in office today after her recent admission to [facility] 07/17/2022-07/23/2022. She had presented due to a UTI, recent kidney stone with ureteral stent, she experienced a bacteremia due to the infected stone. While admitted she was found to have gone into paroxysmal atrial fibrillation in which she is spontaneously converted to a normal sinusrhythm. Her A-fib was felt likely to be situational in the setting of her infection. It was decidednot to initiate oral anticoagulation. She was initiated [...] daily. 3. Follow-up-3 months and as needed. Aiyana Moss APRN/TIME PIECE REPAIRER documented in this [facility]02-24-2023 Miscellaneous Notes* Addendum Note - Suzanne Leroy RN - 08/05/2022 9:00 AM ESTAddended by: SUZANNE LEROY on: 09/30/2022 09:37 AM Modules accepted: Orders documented in this [facility]02-24-2023 Note* Addendum Note - Suzanne Leroy RN - 08/05/2022 9:00 AM ESTAddended by: SUZANNE LEROY on: 09/30/2022 09:37 AM Modules accepted: Orders [id number] History of Present illness Narrative* Anne Foster LPN - 07/29/2022 9:15 AM EST Patient was able to ambulate safely to the examination room. Provider was not notified of possible fall risk * Suly Parker MD - 07/29/2022 9:15 AM EST Images from the original note were not included. [facility] [address] [facility] [address] Dept: [phone] Dept Loc: [phone] Visit type: Established Reason for Visit: New Patient (Kidney stone ) Assessment and Plan Yash was seen today for new patient. Diagnoses and all orders for this visit: Encounter for medical examination to establish care (Primary) Comments: Doing well. Will be undergoing urological procedure on Monday cystoscopy and stent removal?. Hearing aid fitting or adjustment - External referral to ENT; Future History of right mastoidectomy Comments: Referral placed to ENT. Orders: - External referral to ENT; Future Paroxysmal A-fib (CMS/HCC) ([facility]) Comments: On metoprolol. Heart rate regular rhythm today. Not on anticoagulation. Has follow-up with cardio 08/05. Defer anticoagulation to cardio. Diastolic heart failure, unspecified HF chronicity ([facility]) Comments: May benefit from starting ERNESTO inhibitor. Subjective HPI Subjective Patient ID: Yash Francois is a 76 y.o. female who presents for New Patient (Kidney stone ). Here to established care. Recently diagnosed with kidney stone status post ureteral stent placement. Readmitted again urosepsis secondary to Proteus mirabilis. Now on antibiotic. Was found to have paroxysmal A-fib during second admission and started on beta- kimberly. Has follow-up with cardiology on 08/05/2022. Discharged from hospital a week ago. Has appointment 08/02 with urology for cystoscopy and stent removal? Continue to have frequent urination but denies bloody urine or dysuria. Doing well since discharge. Continues on her antibiotic. She does not have acute complaint today. Moved here from [place] back in February 2022. Has not seen PCP since. Here to establish care.Moved back to spend time with great grandson. Pscych history - No hx of depression, anxiety Medical Hx - Arthritis and osteoporosis on Boniva - Hearing problem- Has ENT. Has hearing aid. Surgical Hx. - Had mastoidectomy years ago. - Total knee ~ 10 yrs ago. Doing well. Social hx - No smoker - No ETOH Review of Systems Allergies Allergen Reactions Oxycodone Hives agitated Outpatient Medications Prior to Visit Medication Sig Dispense Refill cephalexin (Keflex) 500 MG capsule Take 2 capsules (1,000 mg) by mouth 3 times daily for 10 days. 60 capsule 0 metoprolol succinate XL (Toprol-XL) 50 MG 24 hr tablet Take 1 tablet (50 mg) by mouth daily. Do notcrush or chew. Do not start before July 23, 2022. 30 tablet 11 phenazopyridine (Pyridium) 200 MG tablet Take 1 tablet (200 mg) by mouth 3 times daily as needed (burning with urination, urinary discomfort) for up to 10 days. 15 tablet 0 COLLAGEN PO Take by mouth. Cyanocobalamin (B-12 PO) Take by mouth. ferrous sulfate 325 (65 Fe) MG tablet Take 325 mg by mouth daily (with breakfast). ibandronate (Boniva) 150 MG tablet Take 150 mg by mouth every 30 (thirty) days. MAGNESIUM PO Take by mouth. Multiple Vitamins-Minerals (ZINC PO) Take by mouth. oxybutynin (Ditropan) 5 MG tablet Take 1 tablet (5 mg) by mouth 3 times daily as needed (urinary frequency, urgency, bladder spasms). 90 tablet 0 tamsulosin (Flomax) 0.4 MG 24 hr capsule Take 1 capsule (0.4 mg) by mouth daily. 30 capsule 2 No facility-administered medications prior to visit. Patient Active Problem List Diagnosis Kidney stone on left side Recurrent UTI History of right mastoidectomy Wears hearing aid Past Medical History: Diagnosis Date Kidney stone Social History Tobacco Use Smoking status: Never Smokeless tobacco: Never Substance Use Topics Alcohol use: Never Past Surgical History: Procedure Laterality Date COLONOSCOPY EXTRACORPOREAL SHOCK WAVE LITHOTRIPSY Left 07/06/2022 cystoscopy,retrograde pyelogram- dr. Joya HYSTERECTOMY KNEE ARTHROPLASTY Right 2016 SKIN BIOPSY No family history on file. Health Maintenance Topic Date Due Hepatitis B Vaccines (1 of 3 - 3-dose series) Never done Bone Density Scan Never done Colorectal Cancer Screening Never done COVID-19 Vaccine (1) Never done Hepatitis C Screening Never done Diabetes Screening Never done DTaP/Tdap/Td Vaccines (1 - Tdap) Never done Zoster Vaccines (1 of 2) Never done Pneumococcal Vaccine: 65+ Years (1 - PCV) Never done Influenza Vaccine (1) Never done HIB Vaccines Aged Out IPV Vaccines Aged Out Hepatitis A Vaccines Aged Out Meningococcal Vaccine Aged Out Rotavirus Vaccines Aged Out HPV Vaccines Aged Out Objective BP 109/59 Pulse 70 Temp 36.2 C (97.1 F) Ht 5' 4.5 (1.638 m) Wt 161 lb (73 kg) BMI 27.21 kg/m Wt Readings from Last 3 Encounters: 07/29/22 161 lb (73 kg) 07/19/22 161 lb (73 kg) 07/06/22 161 lb (73 kg) Physical Exam Vitals reviewed. Constitutional: Appearance: Normal appearance. HENT: Head: Normocephalic. Comments: Has hearing aid bilaterally. TM not seen clearly as she has impacted cerumen on the right Nose: Nose normal. Eyes: Extraocular Movements: Extraocular movements intact. Pupils: [...] and Summarized Labs: Suly Parker MD PGY-3 Media Production Support Manager 07/29/2022 12:33 PM * Priyanka Jiménez DO - 07/29/2022 9:15 AM EST INDIRECT SUPERVISION THIS SERVICE IS TO BE [...] assessment and treatment plan. documented in this [facility]02-17-2023 History of Present illness Narrative* Anne Foster LPN - 07/29/2022 9:15 AM EST Patient was able to ambulate safely to the examination room. Provider was not notified of possible fall risk * Suly Parker MD - 07/29/2022 9:15 AM EST Images from the original note were not included. [facility] [address] [facility] [address] Dept: [phone] Dept Loc: [phone] Visit type: Established Reason for Visit: New Patient (Kidney stone ) Assessment and Plan Yash was seen today for new patient. Diagnoses and all orders for this visit: Encounter for medical examination to establish care (Primary) Comments: Doing well. Will be undergoing urological procedure on Monday cystoscopy and stent removal?. Hearing aid fitting or adjustment - External referral to ENT; Future History of right mastoidectomy Comments: Referral placed to ENT. Orders: - External referral to ENT; Future Paroxysmal A-fib (CMS/HCC) ([facility]) Comments: On metoprolol. Heart rate regular rhythm today. Not on anticoagulation. Has follow-up with cardio 08/05. Defer anticoagulation to cardio. Diastolic heart failure, unspecified HF chronicity ([facility]) Comments: May benefit from starting ERNESTO inhibitor. Subjective HPI Subjective Patient ID: Yash Francois is a 76 y.o. female who presents for New Patient (Kidney stone ). Here to established care. Recently diagnosed with kidney stone status post ureteral stent placement. Readmitted again urosepsis secondary to Proteus mirabilis. Now on antibiotic. Was found to have paroxysmal A-fib during second admission and started on beta- kimberly. Has follow-up with cardiology on 08/05/2022. Discharged from hospital a week ago. Has appointment 08/02 with urology for cystoscopy and stent removal? Continue to have frequent urination but denies bloody urine or dysuria. Doing well since discharge. Continues on her antibiotic. She does not have acute complaint today. Moved here from [place] back in February 2022. Has not seen PCP since. Here to establish care.Moved back to spend time with great grandson. Pscych history - No hx of depression, anxiety Medical Hx - Arthritis and osteoporosis on Boniva - Hearing problem- Has ENT. Has hearing aid. Surgical Hx. - Had mastoidectomy years ago. - Total knee ~ 10 yrs ago. Doing well. Social hx - No smoker - No ETOH Review of Systems Allergies Allergen Reactions Oxycodone Hives agitated Outpatient Medications Prior to Visit Medication Sig Dispense Refill cephalexin (Keflex) 500 MG capsule Take 2 capsules (1,000 mg) by mouth 3 times daily for 10 days. 60 capsule 0 metoprolol succinate XL (Toprol-XL) 50 MG 24 hr tablet Take 1 tablet (50 mg) by mouth daily. Do notcrush or chew. Do not start before July 23, 2022. 30 tablet 11 phenazopyridine (Pyridium) 200 MG tablet Take 1 tablet (200 mg) by mouth 3 times daily as needed (burning with urination, urinary discomfort) for up to 10 days. 15 tablet 0 COLLAGEN PO Take by mouth. Cyanocobalamin (B-12 PO) Take by mouth. ferrous sulfate 325 (65 Fe) MG tablet Take 325 mg by mouth daily (with breakfast). ibandronate (Boniva) 150 MG tablet Take 150 mg by mouth every 30 (thirty) days. MAGNESIUM PO Take by mouth. Multiple Vitamins-Minerals (ZINC PO) Take by mouth. oxybutynin (Ditropan) 5 MG tablet Take 1 tablet (5 mg) by mouth 3 times daily as needed (urinary frequency, urgency, bladder spasms). 90 tablet 0 tamsulosin (Flomax) 0.4 MG 24 hr capsule Take 1 capsule (0.4 mg) by mouth daily. 30 capsule 2 No facility-administered medications prior to visit. Patient Active Problem List Diagnosis Kidney stone on left side Recurrent UTI History of right mastoidectomy Wears hearing aid Past Medical History: Diagnosis Date Kidney stone Social History Tobacco Use Smoking status: Never Smokeless tobacco: Never Substance Use Topics Alcohol use: Never Past Surgical History: Procedure Laterality Date COLONOSCOPY EXTRACORPOREAL SHOCK WAVE LITHOTRIPSY Left 07/06/2022 cystoscopy,retrograde pyelogram- dr. Joya HYSTERECTOMY KNEE ARTHROPLASTY Right 2016 SKIN BIOPSY No family history on file. Health Maintenance Topic Date Due Hepatitis B Vaccines (1 of 3 - 3-dose series) Never done Bone Density Scan Never done Colorectal Cancer Screening Never done COVID-19 Vaccine (1) Never done Hepatitis C Screening Never done Diabetes Screening Never done DTaP/Tdap/Td Vaccines (1 - Tdap) Never done Zoster Vaccines (1 of 2) Never done Pneumococcal Vaccine: 65+ Years (1 - PCV) Never done Influenza Vaccine (1) Never done HIB Vaccines Aged Out IPV Vaccines Aged Out Hepatitis A Vaccines Aged Out Meningococcal Vaccine Aged Out Rotavirus Vaccines Aged Out HPV Vaccines Aged Out Objective BP 109/59 Pulse 70 Temp 36.2 C (97.1 F) Ht 5' 4.5 (1.638 m) Wt 161 lb (73 kg) BMI 27.21 kg/m Wt Readings from Last 3 Encounters: 07/29/22 161 lb (73 kg) 07/19/22 161 lb (73 kg) 07/06/22 161 lb (73 kg) Physical Exam Vitals reviewed. Constitutional: Appearance: Normal appearance. HENT: Head: Normocephalic. Comments: Has hearing aid bilaterally. TM not seen clearly as she has impacted cerumen on the right Nose: Nose normal. Eyes: Extraocular Movements: Extraocular movements intact. Pupils: [...] and Summarized Labs: Suly Parker MD PGY-3 Media Production Support Manager 07/29/2022 12:33 PM * Priyanka Jiménez DO - 07/29/2022 9:15 AM EST INDIRECT SUPERVISION THIS SERVICE IS TO BE [...] assessment and treatment plan. documented in this [facility]02-11-2023 Nurse Note* Silvana Waters RN - 07/23/2022 4:23 PM EST Discharge instructions read to pt and son with clear understanding. No questions at this time [id number] Nurse Note* Silvana Waters RN - 07/23/2022 4:23 PM EST Discharge instructions read to pt and son with clear understanding. No questions at this time * Kika Paz RN - 07/18/2022 1:33 PM EST Pt given supplies for bed side bath. Warm water basin, washcloths, towels, new gown and pants. Pt also given comb, tooth brush, toothpaste, and mouth wash. Pt left safe, call light in reach. documented in this [facility]02-11-2023 Plan of care note* Care Plan - Silvana Waters RN - 07/23/2022 4:22 PM EST Problem: Pain - Adult Goal: Verbalizes/displays adequate comfort level or baseline comfort level 07/23/2022 162 by Silvana Waters RN Outcome: Adequate for Discharge 07/23/2022 162 by Silvana Waters RN Outcome: Adequate for Discharge Problem: Infection - Adult Goal: Absence of infection at discharge 07/23/2022 1622 by Silvana Waters RN Outcome: Adequate for Discharge 07/23/2022 1622 by Silvana Waters RN Outcome: Adequate for Discharge Goal: Absence of infection during hospitalization 07/23/2022 1622 by Silvana Waters RN Outcome: Adequate for Discharge 07/23/2022 1622 by Silvana Waters RN Outcome: Adequate for Discharge Goal: Absence of fever/infection during anticipated neutropenic period 07/23/2022 1622 by Silvana Waters RN Outcome: Adequate for Discharge 07/23/2022 1622 by Silvana Waters RN Outcome: Adequate for Discharge Problem: Safety - Adult Goal: Free from fall injury 07/23/2022 1622 by Silvana Waters RN Outcome: Adequate for Discharge 07/23/2022 1622 by Silvana Waters RN Outcome: Adequate for Discharge Problem: Discharge Planning Goal: Discharge to home or other facility with appropriate resources 07/23/2022 1622 by Silvana Waters RN Outcome: Adequate for Discharge 07/23/2022 1622 by Silvana Waters RN Outcome: Adequate for Discharge Problem: Chronic Conditions and Co-morbidities Goal: Patient's chronic conditions and co-morbidity symptoms are monitored and maintained or improved 07/23/2022 1622 by Silvana Waters RN Outcome: Adequate for Discharge 07/23/2022 1622 by Silvana Waters RN Outcome: Adequate for Discharge Sum[facility] [id number] Miscellaneous Notes* Care Plan - Silvana Waters RN - 07/23/2022 4:22 PM EST Problem: Pain - Adult Goal: Verbalizes/displays adequate comfort level or baseline comfort level 07/23/2022 1622 by Silvana Waters RN Outcome: Adequate for Discharge 07/23/2022 1622 by Silvana Waters RN Outcome: Adequate for Discharge Problem: Infection - Adult Goal: Absence of infection at discharge 07/23/2022 1622 by Silvana Waters RN Outcome: Adequate for Discharge 07/23/2022 1622 by Silvana Waters RN Outcome: Adequate for Discharge Goal: Absence of infection during hospitalization 07/23/2022 1622 by Silvana Waters RN Outcome: Adequate for Discharge 07/23/2022 162 by Silvana Waters RN Outcome: Adequate for Discharge Goal: Absence of fever/infection during anticipated neutropenic period 07/23/2022 162 by Silvana Waters RN Outcome: Adequate for Discharge 07/23/2022 162 by Silvana Waters RN Outcome: Adequate for Discharge Problem: Safety - Adult Goal: Free from fall injury 07/23/2022 162 by Silvana Waters RN Outcome: Adequate for Discharge 07/23/2022 162 by Silvana Waters RN Outcome: Adequate for Discharge Problem: Discharge Planning Goal: Discharge to home or other facility with appropriate resources 07/23/2022 162 by Silvana Waters RN Outcome: Adequate for Discharge 07/23/20221621 by Silvana Waters RN Outcome: Adequate for Discharge Problem: Chronic Conditions and Co-morbidities Goal: Patient's chronic conditions and co-morbidity symptoms are monitored and maintained or improved 07/23/20221621 by Silvana Waters RN Outcome: Adequate for Discharge 07/23/20221621 by Silvana Waters RN Outcome: Adequate for Discharge * Care Coordination - Martha Cuevas RN - 07/22/2022 12:37 PM EST Pt with UTI after recent ureteral stent placement and plan for surgery on 08/02/22. She is currently on oral abx. Pt with PAF noted in ED and cardiology following; medication adjusted. Initial PT/OT note indicated home with assist PRN and HHPT; also recommended for rolling walker which has been noted to have been delivered to pt while in hospital. Current disposition plan is for return to home with dtr when medically stable. No anticipated DC needs at this time. TCC will continue to follow. * Care Coordination - Karen Ruiz RN - 07/21/2022 4:17 PM EST Care Managment Initial Assessment Date: 07/21/2022 Patient Name: Yash Francois : 1945 Patient Information Source of Information: Patient Name/Contact Information: CARMEN REYNA DAUGHTER [phone] Cognition/Language: WFL - Within Functional Limits Permission given to speak with patient agency service representative/caregiver as indicated: Yes Confirmation of Payer with patient/family: Yes Payer Name: [facility] MEDICARE ADVANTAGE : No Confirmation of Primary Care Physician: No PCP PCP Name: HAS APPT WITH DR. PARKER ON Seen in last 2 years?: No Primary Caregiver: Self If assistance needed, confirmed caregiver ready, willing and able to care for patient at discharge: Confirmed with: Living Arrangements Current Residence: Apartment Number of Floors 1 Number of Entry Steps: 1 Bed/Bath Levels: Both first floor Facility: Facility Name: NA Plan to Return: Yes Lives with: Children (DAUGHTER) Support Systems: Children Activities of Daily Living Ambulation: Independent Bathing/Dressing: Independent Elimination/Continence/Toileting: Independent Feeding: Who Assists with Activities of Daily Living: NA Instrumental Activities of Daily Living Prescription Coverage: Yes Pharmacy Used: [facility] [place] Medication Management: Independent Transportation/Shopping: Independent Transportation Mode: Car Needs Assistance with Transportation at Discharge: No (DAUGHTER OR SON) Meal Preparation: Independent Laundry/Cleaning: Independent Finances/Bill Paying: Independent Communication: Independent Types of Care Services/Equipment Utilized Care Services: Dialysis Type: NA Durable Medical Equipment: DME Provider: DENIES Patient's Goal/Discharge Plan Patient expects to be discharged to: HOME Discharge Planning Actions: Continue to follow Patient's Choice Rights and [employer] and Collaborative Relationships Disclosed as Indicated for Post-Acute Care: NA Interdisciplinary Team Engagement: Social Work Referral for: Additional Information: inpatient status from home with UTI. Initial blood cultures positive on or proteus mirabilis. Repeat blood cultures obtained 07/19. Urology consulted receiving iv antibiotic with plan to transition to oral this afternoon. Plan for surgery on 08/02 by urology for removal ofadditional stone. Initial intervention with left ureteral stent placement 07/02/22. Did experience paroxysmal atrial fibrillation in ER and cardiology consulted. Did increase metoprolol dose. Per cardiology,OAC is not needed at this time. Discharge preparation checklist reviewed with patient. Has prescription coverage and able to afford medications. Lives with daughter and is independent in her adls. FWW was recommended by therapy and was delivered by [facility] liaison. Follow up appt with familypractice has been scheduled by rn social services and is on AVS. Discharge plan is home with daughter when medically stable.. Karen Ruiz RN * Care Plan - Toya Cardenas RN - 07/21/2022 7:36 AM EST Problem: Pain - Adult Goal: Verbalizes/displays adequate comfort level or baseline comfort level Outcome: Progressing Problem: Infection - Adult Goal: Absence of infection at discharge Outcome: Progressing Goal: Absence of infection during hospitalization Outcome: Progressing Goal: Absence of fever/infection during anticipated neutropenic period Outcome: Progressing Problem: Safety - Adult Goal: Free from fall injury Outcome: Progressing Problem: Discharge Planning Goal: Discharge to home or other facility with appropriate resources Outcome: Progressing The patient is Moderately Stable - Low risk of patient condition declining or worsening The patient's goals for the shift include The clinical goals for the shift include Over the shift, the patient did not make progress toward the following goals. Barriers to progression include . Recommendations to address these barriers include . * Individualized Overall Plan of Care Note - ANGEL Salazar CNP - 07/20/2022 12:48 PM EST Discussed with Dr. Joya and she would like patient to have CT abdomen pelvis to determine exactly where stones are since she is passing stones and has ureteral calculi as well. * Care Coordination - LELO Padilla - 07/20/2022 9:40 AM EST S/W, following [facility] aware of need for FWW. Spoke with Tyler in [facility], will deliver patient deo later today. * Significant Event - Velvet Isbell NP - 07/19/2022 1:10 PM EST 1:10 PM Discussed case with CLAUDETTE Yeager. Patient meets inpatient admission criteria. Patient accepted to by Dr. Lane. Admission order placed and nursing updated. Velvet Isbell CNP * Care Coordination - LELO Holden - 07/19/2022 11:36 AM EST Received a phone call back [facility]. Patient has been scheduled for a PCP appointment with Dr. Parker on 07/29/22. Appointment information added to patient's discharge instructions. Met with patient at bedside, introduced self and role. Explained the above information tot her. P atient understood this and denies any other additional needs or concerns from social work. * Care Coordination - LELO Holden - 07/19/2022 11:15 AM EST Social work coverage today. Spoke with [facility] liaison, patient does not have a PCP atthis time. At this time, home health care services cannot be started right away until patient is seen by a PCP. Attempted to call [facility] receptionist airline lounge desk to make an appointmentfor patient to be established with a PCP. Left call back number. SW to follow. * Home Care - Tameka Villanueva LPN - 07/19/2022 11:10 AM EST Spoke with patient regarding HHC. Patient does not have a PCP at this time. Spoke with patient about Family practice and she was agreeable to being seen there. I spoke with SW and she will make patient appt. Order Placed for FWW- [facility] will have it delivered to patient's home. She understands and is agreeable to this. * Care Plan - Kika Paz RN - 07/19/2022 7:28 AM EST Problem: Pain - Adult Goal: Verbalizes/displays adequate comfort level or baseline comfort level Outcome: Progressing Problem: Infection - Adult Goal: Absence of infection at discharge Outcome: Progressing Goal: Absence of infection during hospitalization Outcome: Progressing Goal: Absence of fever/infection during anticipated neutropenic period Outcome: Progressing Problem: Safety - Adult Goal: Free from fall injury Outcome: Progressing Problem: Discharge Planning Goal: Discharge to home or other facility with appropriate resources Outcome: Progressing Problem: Chronic Conditions and Co-morbidities Goal: Patient's chronic conditions and co-morbidity symptoms are monitored and maintained or improved Outcome: Progressing * Care Plan - Kika Paz RN - 07/18/2022 7:46 AM EST Problem: Pain - Adult Goal: Verbalizes/displays adequate comfort level or baseline comfort level Outcome: Progressing Problem: Infection - Adult Goal: Absence of infection at discharge Outcome: Progressing Goal: Absence of infection during hospitalization Outcome: Progressing Goal: Absence of fever/infection during anticipated neutropenic period Outcome: Progressing Problem: Safety - Adult Goal: Free from fall injury Outcome: Progressing Problem: Discharge Planning Goal: Discharge to home or other facility with appropriate resources Outcome: Progressing Problem: Chronic Conditions and Co-morbidities Goal: Patient's chronic conditions and co-morbidity symptoms are monitored and maintained or improved Outcome: Progressing documented in this [facility]02-11-2023 History of Present illness Narrative* Michelle Salas DTR - 07/23/2022 8:44 AM EST Nutrition update completed. Chart reviewed. Patient continues as a level 1. * Luis Alfredo Butler MD - 07/22/2022 11:01 AM EST [facility] Hospitalist Progress Note 07/23/2022 Subjective: Admit Date: 07/17/2022 PCP: Pcp No (Inactive) Room#: B1-156/B1-156 A Interval History: Patient denies any flank pain, has few episodes of loose watery stools, CDIFF test ordered. Adult diet Regular @[id number]@ 24HR INTAKE/OUTPUT: No intake or output data in the 24 hours ending 07/23/22 1101 Past Medical History: Past Medical History: Diagnosis Date Kidney stone LABS: CBC: Recent Labs 07/21/22 0422 07/22/22 0505 07/23/22 0231 WBC 5.0 5.1 5.8 RBC 3.52* 3.62* 3.88 HGB 9.8* 10.1* 10.8* HCT 29.6* 30.3* 32.7* MCV 84.1 83.6 84.1 RDW 14.0 14.3 14.2 PLT 135* 144 177 BMP: Recent Labs 07/21/22 0422 07/22/22 0505 07/23/22 0231 NA 139 140 141 [...] Patient Position: Lying) Pulse 74 Temp 36.9 C (98.4 F) (Temporal) Resp 18 Ht 5' 4 (1.626 m) Wt 161 lb (73 kg) SpO2 94% BMI 27.64 kg/m Pulse Ox: SpO2 Av.5 % Min: 93 [...] without any focal sensory/motor deficits. Cranial nerves: II-XIIintact, grossly non-focal. Medications: Current Facility-Administered Medications: acetaminophen (Tylenol) tablet 650 mg, 650 mg, Oral, q6h PRN, 650 mg at 07/19/222027 OR acetaminophen (Tylenol) suppository 650 mg, 650 mg, Rectal, q6h PRN, Suha Coronado PA-C calcium carbonate-cholecalciferol (Oyster Shell) 250-3.125 MG-MCG per tablet 1 tablet, 1 tablet, Oral, BID, Velvet Isbell NP, 1 tablet at 07/23/22 1009 cephalexin (Keflex) capsule 1,000 mg, 1,000 mg, Oral, TID, Luis Alfredo Butler MD, 1,000 mg at 07/23/22 1009 enoxaparin (Lovenox) syringe 40 mg, 40 mg, SubCUTAneous, Daily, Suha Coronado PA-C, 40 mg at 07/23/22 100 ferrous sulfate tablet 325 mg, 325 mg, Oral, Daily with breakfast, Suha Coronado PA-C, 325 mg at 07/23/22 100 HYDROmorphone (Dilaudid) injection 0.5 mg, 0.5 mg, IntraVENous, q4h PRN, Suha Coronado PA-C loperamide (Imodium) capsule 2 mg, 2 mg, Oral, 4x daily PRN, Luis Alfredo Butler MD melatonin tablet 3 mg, 3 mg, Oral, Nightly PRN, Suha Coronado PA-C, 3 mg at 07/21/222002 metoprolol succinate XL (Toprol-XL) 24 hr tablet 50 mg, 50 mg, Oral, Daily, Aiyana Moss, DRY CELL TESTER - TIME PIECE REPAIRER, 50 mg at 07/23/221008 ondansetron ODT (Zofran-ODT) disintegrating tablet 4 mg, 4 mg, Oral, q8h PRN OR ondansetron (Zofran) injection 4 mg, 4 mg, IntraVENous, q6h PRN, Suha Coronado PA-C polyethylene glycol (PEG) 3350 (Miralax) packet 17 g, 17 g, Oral, Daily PRN, Suha Coronado PA-C sodium chloride 0.9 % infusion, 100 mL/hr, IntraVENous, Continuous, Suha Coronado PA-C, Last Rate:100 mL/hr at 07/21/22 0102, 100 mL/hr at 07/21/22 010 tamsulosin (Flomax) [...] ceftriaxone followed by cefazolin, now switched to oralcephalexin per ID stewardship recommendations Clinically improving, flank pain controlled, fever down, still continues to have low-grade fever Appreciate urology input await further recommendations CT abdomen and pelvis findings noted 1. Left ureteral stent placement with mild hydronephrosis. Left-sided urinary calculi including multiple renal calculi, a UPJ calculus and two punctate distal ureteral calculi. 2. Nonobstructive punctate right renal calculus. Cardiology following-no anticoagulation due to hematuria, metoprolol tartrate changed to succinate -am labs, replace lytes prn -increase activity -DVT prophylaxis: [] Lovenox [] Heparin [] SCDs [x] Encourage ambulation [] Already on Anticoagulation Advance Directive: Full Code Total time spent (which include face to face and non face to face encounters) : Toxic drug monitoring/narrow therapeutic index drug monitoring : # Drug name : # Route administered : # Method of monitoring : Extended Emergency Contact Information Primary Emergency Contact: Belem Dooleye Mobile Relation: Child Preferred language: Cameroonian Wharf Tender Helper needed? No Anticipated Discharge LUIS ALFREDO BUTLER MD, MD Division of Hospitalist Medicine Inpatient Medical Services/[facility] [place] * Urvashi Rodriguez - 07/21/2022 3:17 PM EST Occupational Therapy Facility/Department: [facility] Occupational Therapy Treatment NAME: Yash Francois : 1945 Date of Service: 07/21/2022 Discharge Recommendations: Home with assist PRN, Home with Home health OT Assessment Assessment: Pt tolerated tx session well and is progressing with some goals, functional mobility and transfers were presented as Mod I with FWW for additional stability. Pt completed grooming /oral hygiene task while standing at sink as Mod I with no assistive device. Pt required Min A for gown mgmt while seated on EOB. Pt would benefit from OT services in order to increase occupational performance and overall independence. D/C rec for pt is [facility] with assist PRN. REQUIRES OT FOLLOW-UP: Yes Patient Diagnosis(es): The primary encounter diagnosis was Urinary tract infection without hematuria, site unspecified. Diagnoses of Ureteral stent present, Calculus of ureter, Paroxysmal atrial fibrillation (CMS/HCC) (HCC), and PVC (premature ventricular contraction) were also pertinent to this visit. has a past medical history of Kidney stone. has a past surgical history that includes Skin biopsy; Knee Arthroplasty (Right, 2015); Hysterectomy; Colonoscopy; and Extracorporeal shock wave lithotripsy (Left, 07/06/2022). Restrictions Restrictions/Precautions Restrictions/Precautions: General Precautions Vision/Hearing Cognition/Orientation Overall Cognitive Status: WFL Overall Orientation Status: Within Functional Limits Subjective Subjective Subjective: Upon arrival pt supine in bed and agreeable to OT tx General Comments Comments: OK to see per RN Pain Assessment Pain Assessment: No/denies pain Objective Grooming/Oral Hygiene Assistance Level: Modified independent Skilled Clinical Factors: Pt completed grooming/oral hygiene task as Mod I while standing at sink. UE Dressing Assistance Level: Minimal assistance Skilled Clinical Factors: Pt required Min A when doffing/donning gown while seated on EOB. Toileting Assistance Level: Modified independent Skilled Clinical Factors: Pt performed toileting anterior pericare task seated on BSC as Mod I. Balance Sitting Balance: Modified independent Standing Balance: Modified independent Standing Balance Time: ~4-5 mins Activity: standing bal at sink for hygiene/grooming task, sitting bal during toilet task and to prep for transfers. Comment: Pt presented sitting bal at EOB and BSC as Mod I, and standing bal at sink for grooming task as Mod I with no assisted device. No LOB or dizziness noted. Functional Mobility Functional - Mobility Device: Rolling Walker Assist Level: Modified independent Functional Mobility Comments: Functional mobility completed from EOB to sink in room as Mod I with FWW. No fatigue or LOB noted. Toilet Transfers Toilet - Technique: Stand pivot Equipment Used: Standard bedside commode Toilet Transfer: Modified independent Toilet Transfers Comments: Pt performed STS transfer on BSC as Mod I, with no assistive device. Bed mobility Supine to Sit: Modified independent Sit to Supine: Modified independent Scooting: Modified independent Comment: Pt Mod I for all aspects of bed mobility, denies any dizziness with positional changes. Transfers Sit to stand: Modified independent Stand to sit: Modified independent Transfer Comments: STS and stand to sit x2 transfer from EOB as Mod I with FWW and VC for BUE placement with good carryover. Plan Times per Week: 3 visits Current Treatment Recommendations: Strengthening, Balance Training, Functional Mobility Training, Endurance Training, Safety Education & Training, Patient/Caregiver Education & Training, Equipment Evaluation, Education, & procurement, Self-Care / ADL, Home Management Training Plan Comment: Cont OT tx per POC Safety Safety Devices in place: Yes Type of devices: All fall risk precautions in place, Call light within reach, Gait belt, Patient atrisk for falls, Left in bed, Nurse notified Outcomes Score AM-PAC Score AM-PAC Inpatient Daily Activity Raw Score: 20 ADL Inpatient CMS G-Code Modifier: CJ Goals Encounter Problems Encounter Problems (Active) Dressing Upper Extremities Patient will complete upper body dressing MOD I (Progressing) Start: 07/18/22 Expected End: 07/25/22 Transfers Patient will complete functional transfer with least restrictive device with modified independence in order to prepare for ambulation. (Progressing) Start: 07/18/22 Expected End: 07/25/22 Encounter Problems (Resolved) Balance Patient will tolerate standing for 3 minutes to allow increased endurance and balance for ADL tasks. (Completed) Start: 07/18/22 Expected End: 07/25/22 Met: 07/21/22 Dressings Lower Extremities Patient will dress lower body MOD I (Completed) Start: 07/18/22 Expected End: 07/25/22 Met: 07/21/22 Grooming Patient will complete daily grooming tasks MOD I (Completed) Start: 07/18/22 Expected End: 07/25/22 Met: 07/21/22 Mobility Patient will demonstrate functional mobility with MOD I (Completed) Start: 07/18/22 Expected End: 07/25/22 Met: 07/21/22 Toileting Patient will complete toileting tasks at standard toilet with modified independence. (Completed) Start: 07/18/22 Expected End: 07/25/22 Met: 07/21/22 Education Education Given To: Patient Education Provided: OT Role, Plan of Care, Transfer Training, Equipment Education Method: Demonstration, Verbal Barriers to Learning: None Education Outcome: Verbalized understanding, Demonstrated understanding Therapy Time Individual Co-treatment Time In 1408 Time Out 1441 Minutes 33 Timed Code Treatment Minutes: 33 Minutes (2 ADL) Urvashi Rodriguez I have reviewed and discussed the care of this patient with DIRECTOR OF DISTANCE LEARNING student and agree with the above note. FABIAN Woo/John Paul * Jesus ZafarAddie Cabello APRN - TIME PIECE REPAIRER - 07/21/2022 12:06 PM EST ANGEL Arias CNP 07/21/2022 at 12:06 PM Urology Progress Note [...] VS: BP 132/60 Pulse 67 Temp 37.4 C (99.3 F) (Temporal) Resp 18 Ht 5' 4 (1.626 m) Wt 161 lb (73 kg) SpO2 93% BMI 27.64 kg/m I & O - 24hr: Intake/Output Summary [...] minutes reviewing previous notes, test results and discussingthe diagnosis and importance of compliance with the treatment plan as well as documenting on the day of the visit. --Jesus Cabello CNP, APRN on 07/21/2022 at 12:06 PM An electronic signature was used to authenticate this note. I wore an N-95 mask during the entire visit with patient. Gloves were worn with physical contact ofpatient. * Luis Alfredo Butler MD - 07/21/2022 10:46 AM EST [facility] Hospitalist Progress Note 07/21/2022 Subjective: Admit Date: 07/17/2022 PCP: Pcp No (Inactive) Room#: B1-156/B1-156 A Interval History: Patient denies any flank pain or urinary pain today, continues to have low-grade fever Adult diet Regular @[id number]@ 24HR INTAKE/OUTPUT: Intake/Output Summary (Last 24 hours) [...] Vitals: BP 132/60 Pulse 67 Temp 37.4 C (99.3 F) (Temporal) Resp 18 Ht 5' 4 (1.626 m) Wt 161 lb (73 kg) SpO2 93% BMI 27.64 kg/m Pulse Ox: SpO2 Av.6 % Min: 89 [...] without any focal sensory/motor deficits. Cranial nerves: II-XIIintact, grossly non-focal. Medications: Current Facility-Administered Medications: acetaminophen [...] Daily, Suha Coronado PA-C, 40 mg at 07/21/22857 ferrous sulfate tablet 325 mg, 325 mg, Oral, Daily with breakfast, Suha Coronado PA-C, 325 mg at 07/21/22857 HYDROmorphone (Dilaudid) injection 0.5 mg, 0.5 mg, IntraVENous, q4h PRN, Suha Coronado PA-C melatonin tablet 3 mg, 3 mg, Oral, Nightly PRN, Suha Coronado PA-C metoprolol succinate XL (Toprol-XL) 24 hr tablet 50 mg, 50 mg, Oral, Daily, Aiyana Moss APRN - TIME PIECE REPAIRER, 50 mg at 07/21/22857 ondansetron ODT (Zofran-ODT) disintegrating tablet 4 mg, 4 mg, Oral, q8h PRN OR ondansetron (Zofran) injection 4 mg, 4 mg, IntraVENous, q6h PRN, Suha Coronado PA-C polyethylene glycol (PEG) 3350 (Miralax) packet 17 g, 17 g, Oral, Daily PRN, Suha Coronado PA-C sodium chloride 0.9 % infusion, 100 mL/hr, IntraVENous, Continuous, Suha Coronado PA-C, Last Rate:100 mL/hr at 07/21/22 0102, 100 mL/hr at [...] ceftriaxone followed by cefazolin, now switched to oralcephalexin per ID stewardship recommendations Clinically improving, flank pain controlled, fever down, still continues to have low-grade fever Appreciate urology input await further recommendations CT abdomen and pelvis findings noted 1. Left ureteral stent placement with mild hydronephrosis. Left-sided urinary calculi including multiple renal calculi, a UPJ calculus and two punctate distal ureteral calculi. 2. Nonobstructive punctate right renal calculus. Cardiology following-no anticoagulation due to hematuria, metoprolol tartrate changed to succinate -am labs, replace lytes prn -increase activity -DVT prophylaxis: [x] Lovenox [] Heparin [] SCDs [x] Encourage ambulation [] Already on Anticoagulation Advance Directive: Full Code Total time spent (which include face to face and non face to face encounters) : More than 35 minutes Toxic drug monitoring/narrow therapeutic index drug monitoring : # Drug name : Enoxaparin # Route administered : Subcutaneous # Method of monitoring : Daily CBC and platelets Extended Emergency Contact Information Primary Emergency Contact: Carmen Dooley Mobile Relation: Child Preferred language: Cameroonian Wharf Tender Helper needed? No Anticipated Discharge LUIS ALFREDO BUTLER MD, MD Division of Hospitalist Medicine Inpatient Medical Services/[facility] [place] * Peter Vogel, PT - 07/20/2022 3:26 PM EST Physical Therapy Facility/Department: [facility] Physical Therapy Daily Treatment Note NAME: Yash Francois : 1945 Date of Service: 07/20/2022 Discharge Recommendations: Home with assist PRN, Home with Home health PT PT Equipment Recommendations Equipment Needed: Yes Mobility Devices: Walker Walker: Rolling Assessment Assessment: Pt demo improved functional mobility, has met acute therapy goals. She demo bed mobility Mod I, transfers and ambulation with FWW and Mod I, and completes 2 stairs Mod I. She demo good safety awareness and good walker use. She has met acute therapy goals, will d/c acute therapies, continue to rec [facility] PT for endurance Requires PT Follow-Up: No Patient Diagnosis(es): The primary encounter diagnosis was Urinary tract infection without hematuria, site unspecified. Diagnoses of Ureteral stent present, Calculus of ureter, Paroxysmal atrial fibrillation (CMS/HCC) (HCC), and PVC (premature ventricular contraction) were also pertinent to this visit. has a past medical history of Kidney stone. has a past surgical history that includes Skin biopsy; Knee Arthroplasty (Right, 2015); Hysterectomy; Colonoscopy; and Extracorporeal shock wave lithotripsy (Left, 07/06/2022). Restrictions Restrictions/Precautions Restrictions/Precautions: General Precautions Vision/Hearing Vision: Within Functional Limits Vision Exceptions: Wears glasses for reading Hearing: Impaired Hearing Exceptions: Bilateral hearing aid (not in during evaluation) Subjective General Chart Reviewed: Yes Patient Assessed for Rehabilitation Services: Yes Response To Previous Treatment: Patient with no complaints from previous session. Family / Caregiver Present: No Follows Commands: Within Functional Limits General Comment Comments: Per RN pt okay for therapy Subjective Subjective: Pt pleasant, agree to PT Pain Assessment Pain Assessment: No/denies pain Cognition/Orientation Overall Cognitive Status: WFL Overall Orientation Status: Within Functional Limits Objective Bed mobility Supine to Sit: Modified independent Sit to Supine: Modified independent Scooting: Modified independent Comment: Pt denies dizziness Transfers Sit to Stand: Modified independent Stand to sit: Modified independent Comment: Pt complete functional transfer to FWW with mod I. Therapist cues for hand placement and assist in setting pt walker. She demo no LOB Ambulation Ambulation: Yes Ambulation 1 Surface 1: Level tile Device 1: Rolling walker Assistance 1: Mod independent Quality of Gait 1: No gait deviations, No LOB Quality of Gait Comment 1: Pt ambulate with FWW and Mod I. She demo normalized reciprocal pattern with no LOB. She demo good walker management with light cues Distance (ft) 1: ~350 ft Comments 1: Therapist cues pt for walker management with cues for proximity to FWW, upright trunk and reciprocal pattern Stairs Rails 1: Left Device 1: No device Additional Factors: Verbal cues, Non-reciprocal going up, Non-reciprocal going down Assistance 1: Mod independent Number of Steps 1: 2 Comment 1: Pt ascend/descend 2 steps Mod I with HR, demo step to pattern with no LOB Balance Posture: Good Sitting - Static: Good Sitting - Dynamic: Good Standing - Static: Fair Standing - Dynamic: Fair, - Plan Times per Week: d/c PT Current Treatment Recommendations: Strengthening, ROM, Balance Training, Functional Mobility Training, Transfer Training, Endurance Training, Gait Training, Stair training, Neuromuscular Re-education, Pain Management, Home Exercise Program, Safety Education & Training, Patient/Caregiver Education & Training, Equipment Evaluation, Education, & procurement, Positioning Plan Comment: goals and plan of care established in collaboration with pt Safety Safety Devices Safety Devices in Place: Yes Type of Devices: All fall risk precatuions in place, Call light within reach, Gait belt, Left in bed, Nurse notified AM-PAC Score AM-PAC Inpatient Mobility Raw Score: 24 Mobility Inpatient [facility] G-Code Modifier: CH Goals Encounter Problems Encounter Problems (Active) Exercise Patient will complete lower extremity exercises for 1-2 sets / 5-10 reps in order to improve strength and activity tolerance for mobility. (Adequate for Discharge) Start: 07/18/22 Expected End: 07/20/22 Pain - Adult Encounter Problems (Resolved) Mobility Patient will ambulate 100 feet with modified independence and least restrictive device in order to improve safety and independence with mobility. (Completed) Start: 07/18/22 Expected End: 07/20/22 Met: 07/20/22 Patient will ascend and descend 1 stairs with least restrictive device and modified independence inorder to safely negotiate home. (Completed) Start: 07/18/22 Expected End: 07/20/22 Met: 07/20/22 Transfers Patient will complete functional transfer with least restrictive device with modified independence in order to prepare for ambulation. (Completed) Start: 07/18/22 Expected End: 07/20/22 Met: 07/20/22 Education Education Given To: Patient Education Provided: Goals, PT Role, General Safety, Energy Conservation, Gait Training, Plan of Care, Discharge recommendations, Transfer Training, Precautions, Injury Prevention, Equipment, Functional Mobility Training Education Method: Demonstration, Verbal Barriers to Learning: None Education Outcome: Verbalized understanding, Demonstrated understanding Therapy Time Individual Co-treatment Time In 1425 Time Out 1435 Minutes 10 Timed Code Treatment Minutes: 8 Minutes (gait x1) Pteer Vogel PT * Aiyana Moss APRN - TIME PIECE REPAIRER - 07/20/2022 12:21 PM EST [facility] V[facility] [place] [facility] Cardiology/ Electrophysiology Progress Note Assessment/Plan HF NYHA [...] Resp: 16 17 18 16 Temp: 37.4 C (99.3 F) 37.2 C (99 F) 37.4 C (99.4 F) 36.5 C (97.7 F) TempSrc: Temporal Temporal Temporal Temporal SpO2: 92% [...] Darshan Painting MD on 07/19/2022 3:18 PM ANGEL Castro CNP Date Of Service 07/20/2022 * Luis Alfredo Butler MD - 07/20/2022 11:30 AM EST [facility] Hospitalist Progress Note 07/20/2022 Subjective: Admit Date: 07/17/2022 PCP: Pcp No (Inactive) Room#: B1-156/B1-156 A Interval History: Patient moved out of the CDU yesterday, has Proteus mirabilis bacteremia with UTI, recent left ureteral stent, infection from stone Urology following, patient has increased frequency of urination but denies any abdominal or flank pain Has low-grade fever. Adult diet Regular @[id number]@ 24HR INTAKE/OUTPUT: No intake or output data [...] 1* 0* 4 LIVER PROFILE: Recent Labs 07/17/226 AST 26 ALT 15 BILITOT 0.6 ALKPHOS [...] Patient Position: Lying) Pulse 68 Temp 37.4 C (99.4 F) (Temporal) Resp 18 Ht 5' 4 (1.626 m) Wt 161 lb (73 kg) SpO2 94% BMI 27.64 kg/m Pulse Ox: SpO2 Av.2 % Min: 90 [...] without any focal sensory/motor deficits. Cranial nerves: II-XIIintact, grossly non-focal. Medications: Current Facility-Administered Medications: acetaminophen (Tylenol) tablet 650 mg, 650 mg, Oral, q6h PRN, 650 mg at 07/19/222027 OR acetaminophen (Tylenol) suppository 650 mg, 650 mg, Rectal, q6h PRN, Suha Coronado PA-C calcium carbonate-cholecalciferol (Oyster Shell) 250-3.125 MG-MCG per tablet 1 tablet, 1 tablet, Oral, BID, Velvet Isbell NP, 1 tablet at 07/20/22851 ceFAZolin in dextrose (Ancef) IVPB 1,000 mg, 1,000 mg, IntraVENous, q8h, Luis Alfredo Butler MD enoxaparin (Lovenox) syringe 40 mg, 40 mg, SubCUTAneous, Daily, Suha Coronado PA-C, 40 mg at 07/20/22851 ferrous sulfate tablet 325 mg, 325 mg, Oral, Daily with breakfast, Suha Coronado PA-C, 325 mg at 07/20/22 0801 HYDROmorphone (Dilaudid) injection 0.5 mg, 0.5 mg, IntraVENous, q4h PRN, Suha Coronado PA-C melatonin tablet 3 mg, 3 mg, Oral, Nightly PRN, Suha Coronado PA-C metoprolol succinate XL (Toprol-XL) 24 hr tablet 50 mg, 50 mg, Oral, Daily, Aiyana Moss APRN - TIME PIECE REPAIRER, 50 mg at 07/20/22 0909 ondansetron ODT (Zofran-ODT) disintegrating tablet 4 mg, 4 mg, Oral, q8h PRN OR ondansetron (Zofran) injection 4 mg, 4 mg, IntraVENous, q6h PRN, Suha Coronado PA-C polyethylene glycol (PEG) 3350 (Miralax) packet 17 g, 17 g, Oral, Daily PRN, Suha Coronado PA-C sodium chloride 0.9 % infusion, 100 mL/hr, IntraVENous, Continuous, Suha Coronado PA-C, Last Rate:100 mL/hr at 07/19/22 0645, 100 mL/hr at [...] chills, nausea and bilateral flank pain, she recentlyhad left-sided lithotripsy for renal stone on July [address] Joya, patient had above symptoms,possible infection from kidney stone, urology following the patient while in the hospital, patient on ceftriaxone, switched to cefazolin for 1 day, plan to switch to oral cephalexin on 07/21, encouraged oral intake, pain is controlled -am labs, replace lytes prn -increase activity -DVT prophylaxis: [] Lovenox [] Heparin [] SCDs [x] Encourage ambulation [] Already on Anticoagulation Advance Directive: Full Code Total time spent >50 mins Extended Emergency Contact Information Primary Emergency Contact: Carmen Dooley Mobile Relation: Child Preferred language: Cam[place]onian Wharf Tender Helper needed? No Anticipated Discharge in 24 hours on oral antibiotics with urology follow-up to home with home health LUIS ALFREDO BUTLER MD, MD Division of Hospitalist Medicine Inpatient Medical Services/[facility] [place] * ANGEL Salazar CNP - 07/20/2022 9:12 AM EST ANGEL Arias CNP 07/20/2022 at 9:12 AM Urology Progress Note [...] Patient Position: Lying) Pulse 68 Temp 37.4 C (99.4 F) (Temporal) Resp 18 Ht 5' 4 (1.626 m) Wt 161 lb (73 kg) SpO2 94% BMI 27.64 kg/m I & O - 24hr: No intake [...] on the day of the visit. --Jesus Cabello CNP, APRN on 07/20/2022 at 9:12 AM An electronic signature was used to authenticate this note. I wore an N-95 mask during the entire visit with patient. Gloves were worn with physical contact ofpatient. * Urvashizafar Rodriguez - 07/19/2022 3:12 PM EST Occupational Therapy Facility/Department: [facility] Occupational Therapy Treatment NAME: Yash Francois : 1945 Date of Service: 07/19/2022 Discharge Recommendations: Home with assist PRN, Home with Home health OT Assessment Assessment: Pt tolerated tx session well, and is progressing with some goals. Pt performed functional mobility and transfers as CGA with FWW, bed mobility, and toilet transfer as Mod I. Pt would benefit from OT services in order to increase occupational performance and independence. D/C rec for pt is [facility] with home assist PRN. REQUIRES OT FOLLOW-UP: Yes Patient Diagnosis(es): The primary encounter diagnosis was Urinary tract infection without hematuria, site unspecified. Diagnoses of Ureteral stent present, Calculus of ureter, Paroxysmal atrial fibrillation (CMS/HCC) (HCC), and PVC (premature ventricular contraction) were also pertinent to this visit. has a past medical history of Kidney stone. has a past surgical history that includes Skin biopsy; Knee Arthroplasty (Right, 2015); Hysterectomy; Colonoscopy; and Extracorporeal shock wave lithotripsy (Left, 07/06/2022). Restrictions Restrictions/Precautions Restrictions/Precautions: General Precautions, Fall Risk Vision/Hearing Cognition/Orientation Overall Cognitive Status: WFL Overall Orientation Status: Within Functional Limits Subjective Subjective Subjective: Upon arrival pt supine in bed and agreeable to OT tx. General Comments Comments: OK to see per RN Pain Assessment Pain Assessment: No/denies pain Objective Toileting Assistance Level: Modified independent Skilled Clinical Factors: Pt performed toileting anterior pericare task seated on BS as Mod I. Balance Sitting Balance: Modified independent Standing Balance: Contact guard assistance Standing Balance Time: ~3-4mins Activity: standing bal in preparation for functional mobility, sitting bal in prep for transfers Comment: Pt able to perform sitting bal at EOB as Mod I and standing bal in prep for functional mobility as CGA with FWW. No LOB or dizziness noted. Functional Mobility Functional - Mobility Device: Rolling Walker Assist Level: Contact guard assistance Functional Mobility Comments: Pt completed functional mobility in hallway to/from room as CGA with FWW. No fatigue noted and spO2 remains WFL. Toilet Transfers Toilet - Technique: Ambulating Toilet Transfer: Modified independent Toilet Transfers Comments: Pt performed STS transfer on BS as Mod I, with no assisted device. Bed mobility Supine to Sit: Modified independent Sit to Supine: Modified independent Scooting: Modified independent Comment: Pt able to complete bed mobility as Mod I with HOB elevated. No dizziness with positional change. Transfers Sit to stand: Contact guard assistance Stand to sit: Contact guard assistance Transfer Comments: Pt able to perform STS transfer from EOB as CGA with FWW. No dizziness or LOB noted. Plan Times per Week: 4 visits Current Treatment Recommendations: Strengthening, Balance Training, Functional Mobility Training, Endurance Training, Safety Education & Training, Patient/Caregiver Education & Training, Equipment Evaluation, Education, & procurement, Self-Care / ADL, Home Management Training Plan Comment: Cont OT tx per POC Safety Type of devices: All fall risk precautions in place, Call light within reach, Gait belt, Patient atrisk for falls, Left in bed, Nurse notified Outcomes Score AM-PAC Score AM-PAC Inpatient Daily Activity Raw Score: 19 ADL Inpatient CMS G-Code Modifier: CK Goals Encounter Problems Encounter Problems (Active) Balance Patient will tolerate standing for 3 minutes to allow increased endurance and balance for ADL tasks. (Progressing) Start: 07/18/22 Expected End: 07/25/22 Dressing Upper Extremities Patient will complete upper body dressing MOD I (Not Addressed) Start: 07/18/22 Expected End: 07/25/22 Dressings Lower Extremities Patient will dress lower body MOD I (Not Addressed) Start: 07/18/22 Expected End: 07/25/22 Grooming Patient will complete daily grooming tasks MOD I (Not Addressed) Start: 07/18/22 Expected End: 07/25/22 Mobility Patient will demonstrate functional mobility with MOD I (Progressing) Start: 07/18/22 Expected End: 07/25/22 Toileting Patient will complete toileting tasks at standard toilet with modified independence. (Progressing) Start: 07/18/22 Expected End: 07/25/22 Transfers Patient will complete functional transfer with least restrictive device with modified independence in order to prepare for ambulation. (Progressing) Start: 07/18/22 Expected End: 07/25/22 Education Education Given To: Patient Education Provided: OT Role, Plan of Care, Transfer Training, Equipment Education Method: Demonstration, Verbal Barriers to Learning: None Education Outcome: Verbalized understanding, Demonstrated understanding Therapy Time Individual Co-treatment Time In 1426 Time Out 1449 Minutes 23 Timed Code Treatment Minutes: 23 Minutes (2 Ther Act) Urvashi Rodriguez I have reviewed and discussed the care of this patient with DIRECTOR OF DISTANCE LEARNING student and agree with the above note. Tavon Stock, FABIAN/John Paul * Jesus Cabello APRN - SAFIA - 07/19/2022 10:59 AM EST Images from the original note were not included. ANGEL Arias CNP 07/19/2022 at 10:59 AM Urology Progress Note PATIENT NAME: Yash Francois DATE OF : 1945 ADMISSION DATE: 07/17/2022 8:35 PM TODAY'S DATE: 07/19/2022 Subjective Resting quietly in bed. NAD no overnight events. Denies fever, chills, dysuria, urgency, frequency, hematuria. Appetite is better today. Objective VS: BP 106/63 Pulse 109 Temp 37.3 C (99.1 F) (Temporal) Resp 18 Ht 5' 4 (1.626 m) Wt 161 lb (73 kg) SpO2 97% BMI 27.64 kg/m I & O - 24hr: No intake or output data in the 24 hours ending 07/19/22 1059 Physical Exam: General: Neck: Resp: Abdomen: No acute distress Supple Normal effort Soft, non-tender, nondistended : Voiding without difficulty. Skin: Skin color, texture, turgor normal, no rashes or lesions Labs and Imaging Studies Labs: CBC: Recent Labs 07/17/22 2116 07/18/22 0253 07/19/22 0208 WBC 7.3 8.3 7.5 HGB 12.8 10.9* 10.4* HCT 39.5 32.9* 31.8* MCV 85.0 84.8 84.5 PLT 201 153 116* BMP: Recent Labs 07/18/22 0253 07/19/22 0135 07/19/22 0208 NA 137 136 [...] infected stone. - nausea has improved. --Jesus Cabello TIME PIECE REPAIRER, DRY CELL TESTER on 07/19/2022 at 10:59 AM An electronic signature was used to authenticate this note. On this date 07/19/2022 I have spent 25 minutes reviewing previous notes, test results and discussingthe diagnosis and importance of compliance with the treatment plan as well as documenting on the day of the visit. I wore an N-95 mask during the entire visit with patient. Gloves were worn with physical contact ofpatient. * Velvet Isbell NP - 07/19/2022 7:41 AM EST [facility] Progress Note 07/19/2022 7:42 AM Subjective: Admit Date: 07/17/2022 PCP: Pcp No (Inactive) Interval History: Patient is feeling well this morning. Her appetite is returning. Denies any chestpain/pressure, SOB, nausea, vomiting, abdominal pain, flank pain, [...] Urinalysis Result Value Ref Range Color, Urine Yellow Lt. Yellow Clarity, Urine Turbid (A) Clear pH, Urine 7.0 5.0 - 8.0 pH Leukocytes, Urine 500 (A) Negative [place]/uL Nitrite, Urine Positive (A) Negative Protein, Urine 20 (A) Negative mg/dL Glucose, Urine Normal Normal (<70) mg/dL Bilirubin, Urine Negative Negative mg/dL Ketones, Urine Negative Negative mg/dL Urobilinogen, Urine Normal Normal (0-1) mg/dL Blood, Urine 0.2 (A) Negative mg/dL RBC, Urine 11-25 (A) 0 - 2 /HPF WBC, Urine 26-50 (A) 0 - 5 /HPF Squamous Epithelial, Urine 3-5 3 - 5 /HPF Bacteria, Urine Moderate (A) Negative /HPF Mucus, Urine Few Negative /LPF SPECIFIC GRAVITY OF URINE (NUMERIC) 1.011 1.005 - 1.030 Basic metabolic panel Result Value Ref Range SODIUM 137 135 - 145 mmol/L POTASSIUM 3.3 (L) 3.5 - 5.1 mmol/L CHLORIDE 110 (H) 98 - 107 mmol/L CARBON DIOXIDE 22 22 - 30 mmol/L UREA NITROGEN 15 7 - 17 mg/dL CREATININE 0.67 0.52 - 1.04 mg/dL GLUCOSE 119 (H) 70 - 100 mg/dL CALCIUM 7.7 (L) 8.4 - 10.4 mg/dL ANION GAP 4 3 - 13 mmol/L eGFR >90.0 >60.0 mL/min/1.73m*2 Magnesium Result Value Ref Range MAGNESIUM 1.7 1.6 - 2.3 mg/dL CBC auto differential Result Value Ref Range Auto WBC 7.5 3.6 - 10.7 10*3/uL RBC 3.76 (L) 3.8 - 5.20 10*6/uL Hemoglobin 10.4 (L) 11.7 - 16.0 g/dL Hematocrit 31.8 (L) 35.0 - 47.0 % MCV 84.5 80.0 - 98.0 fL MCH 27.6 26.0 - 34.0 pg MCHC 32.7 32.0 - 36.0 % RDW 14.4 11.5 - 14.5 % Platelets 116 (L) 140 - 440 10*3/uL MPV 7.8 7.4 - 12.4 fL nRBC 0.0 0.0 - 2.0 /100 WBCs Neutrophils Relative 83.1 (H) 40.0 - 80.0 % Lymphocytes Relative 9.4 (L) 20.0 - 40.0 % Monocytes Relative 5.7 2.0 - 10.0 % Eosinophils Relative 1.1 1.0 - 6.0 % Basophils Relative 0.7 0.0 - 2.0 % Neutrophils Absolute 6.2 1.8 - 7.0 10*3/uL Lymphocytes Absolute 0.7 (L) 1.0 - 4.3 10*3/uL Monocytes Absolute 0.4 0.0 - 0.8 10*3/uL Eosinophils Absolute 0.1 0.0 - 0.5 10*3/uL Basophils Absolute 0.1 0.0 - 0.2 10*3/uL Basic metabolic panel Result Value Ref Range SODIUM 136 135 - 145 mmol/L POTASSIUM 3.4 (L) 3.5 - 5.1 mmol/L CHLORIDE 114 (H) 98 - 107 mmol/L CARBON DIOXIDE 20 (L) 22 - 30 mmol/L UREA NITROGEN 17 7 - 17 mg/dL CREATININE 0.68 0.52 - 1.04 mg/dL GLUCOSE 121 (H) 70 - 100 mg/dL CALCIUM 7.9 (L) 8.4 - 10.4 mg/dL ANION GAP 2 (L) 3 - 13 mmol/L eGFR >90.0 >60.0 mL/min/1.73m*2 Magnesium Result Value Ref Range MAGNESIUM 1.7 1.6 - 2.3 mg/dL Basic metabolic panel Result Value Ref Range SODIUM 138 135 - 145 mmol/L POTASSIUM 3.3 (L) 3.5 - 5.1 mmol/L CHLORIDE 112 (H) 98 - 107 mmol/L CARBON DIOXIDE 25 22 - 30 mmol/L UREA NITROGEN 17 7 - 17 mg/dL CREATININE 0.69 0.52 - 1.04 mg/dL GLUCOSE 113 (H) 70 - 100 mg/dL CALCIUM 7.6 (L) 8.4 - 10.4 mg/dL ANION GAP 1 (L) 3 - 13 mmol/L eGFR >90.0 >60.0 mL/min/1.73m*2 ECG 12 lead Result Value Ref Range Heart Rate 99 bpm QRSD Interval 108 ms QT Interval 344 ms QTC Interval 442 ms P [place] 19 degrees QRS [place] -2 degrees T Wave [place] 166 degrees RI Interval 184 ms ECG 12 lead Result Value Ref Range Heart Rate 117 bpm QRSD Interval 120 ms QT Interval 344 ms QTC Interval 480 ms P [place] 13 degrees QRS [place] 2 degrees T Wave [place] 174 degrees RI Interval 135 ms ECG 12 lead Result Value Ref Range Heart Rate 124 bpm QRSD Interval 112 ms QT Interval 334 ms QTC Interval 480 ms P [place] degrees QRS [place] 9 degrees T Wave [place] 194 degrees RI Interval ms Urine Culture: Results for orders placed or performed during the hospital encounter of 07/17/22 Urine culture Specimen: Urine, Clean Catch Result Value Ref Range Urine Culture Normal urogenital michael present Objective: Vitals: BP 106/62 (BP Location: Right arm, Patient Position: Lying) Pulse (!) 117 Temp 37.7 C (99.8 F) (Oral) Resp 18 Ht 5' 4 (1.626 m) Wt 161 lb (73 kg) SpO2 95% BMI 27.64 kg/m Temp (24hrs), Av.3 C (99.2 F), Min:36.6 C (97.9 F), Max:38 C (100.4 F) Pulse Ox: SpO2 Av.2 % Min: 90 % Max: 95 % Supplemental O2: O2 Flow Rate (L/min): 2 L/min General appearance: alert and cooperative with exam, sitting up in bed eating breakfast, NAD Lungs: clear to auscultation bilaterally and no cough, no dyspnea Heart: irregularly irregular rhythm, S1, S2 normal, and no murmurs, rubs, or gallops, PPP Abdomen: soft, non-tender; bowel sounds normal; no masses, no organomegaly Extremities: extremities normal, warm and well-perfused; no cyanosis, clubbing, or edema Neurologic: No obvious focal neurologic deficits. Speech clear, no tremor Psychiatric: Normal affect, cooperative, good eye contact Assessment and Plan Principal Problem: UTI (urinary tract infection) Active Problems: Urinary tract infection 1.) Proteus Bacteremia - likely source is urinary, however her urine culture is clean - blood cultures- 2 bottles positive for proteus mirabilis - she does not currently meet sepsis criteria, afebrile, no leukocytosis, BP stable - discussed case with Dr. Hunter - no formal ID consult needed, continue IV Rocephin, will repeat 2 sets of blood cultures today per ID recommendation - continue with q 4 hour vitals and temperature checks 2.) Atrial Flutter, new onset - 2-08/10 conduction pattern with highly variable rates 90's-140's at rest, patient asymptomatic at rest - blood pressures are stable - continue telemetry - consult cardiology - normal magnesium level 3.) Ureteral Calculi - UA appeared grossly positive but culture was ultimately negative. - nausea and vomiting has resolved, afebrile - patient was treated for left kidney stone on 07/06/22 with cystoscopy, ESWL, and stent placement, recovery was initially uncomplicated - KUB showed left distal ureteral calculus with proximal coil - Urology is consulted, plan for now is to leave stent in place until scheduled removal on 07/27/22.Will need KUB prior to removal. 4.) Hypokalemia - K 3.3 this morning - KCL 40 mEq orally today x 1 - recheck BMP this afternoon 5.) Hypocalcemia - Calcium level 7.6, has dropped over the course of her admission - will replace with 1 gram Calcium Gluconate IV today - recheck BMP this afternoon Will likely change patient from inpatient observation today, based upon lab results and mergers and acquisitions consultant recommendations Due to the review of above complex data and the acute illness and/or undiagnosed new problem which may pose significant morbidity, The complexity of this case is: Moderate Advance Directive: Full Code Discharge planning: plans to go home, date TBD Velvet Isbell NP, [facility] [place]/[facility] provider (Comment: Please note this report has been produced using speech recognition software and may contain errors related to that system including errors in grammar, punctuation, and spelling, as well as words and phrases that may be inappropriate. If there is any questions or concerns please feel free to contact the dictating provider for clarification) * Shreya Nicole RD - 07/18/2022 3:[address] screened. Nutrition rescreen completed. Patient assigned a level 1. Pt is on a Regular diet, ordering adequate food on trays. CBW documented at 161#. Wt history reviewed- 161# in May 2022 same as CBW. Labs unremarkable. No significant skin breakdown noted. Pt on antibiotics for UTI treatment andhas a left ureteral stent planned for removal next week on 07/27. Pt is not an acute nutrition risk at this time. Will refer to Diet fleet technician for ongoing nutritionscreening and monitoring of PO intake adequacy. * Pallavi Giordano, PT - 07/18/2022 12:32 PM EST Physical Therapy Facility/Department: [facility] Physical Therapy Initial Evaluation NAME: Yash Francois : 1945 Date of Service: 07/18/2022 Having reviewed the treatment plan and goals for this patient, I certify that the plan of care below is medically necessary and appropriate. Discharge Recommendations: 24 hour supervision or assist, Home with Home health PT, Continue to assess pending progress PT Equipment Recommendations Equipment Needed: Yes Mobility Devices: Walker Walker: Rolling Assessment Assessment: Pt admitted 07/17 with c/o fever, bilateral flank pain, and nausea. She was recently in for ureteral stent placement 07/06/22. Pt was previously independent with functional mobility without AD. She is currently mod I for bed mobility, CGA to SBA for functional transfers and CGA to SBA for ambulation with and without AD. Pt demos improvement with ambulation with FWW. Educated pt on use ofFWW at home, will need FWW ordered. Pt is limited by fatigue and is currently at an increased risk for falls. Pt will benefit from acute skilled PT to address current deficits. Recommend home with [facility] PT and initial 24/ assist pending progress, daughter reports slight change in cognition. Discussed recommendation with daughter and reports will discuss with family for assist. Performance Deficits/Impairments: Decreased functional mobility , Decreased endurance, Decreased balance, Decreased strength, Decreased posture Activity Tolerance Comment: Pt limited by fatigue Decision Making: Medium Complexity History: Pt admitted 07/17 with c/o fever, bilateral flank pain, and nausea. She was recently in for ureteral stent placement 07/06/22 Exam: AM-PAC Clinical Presentation: Pt admitted 07/17 with c/o fever, bilateral flank pain, and nausea. She was recently in for ureteral stent placement 07/06/22. Pt has significant past medical history as indicatedimpacting pt's current clinical presentation. She is currently mod I for bed mobility, CGA to SBA for functional transfers and ambulation with and without FWW. She is currently at an increased risk for falls. Recommend home with [facility] PT and initial 02/01 assist pending progress. Barriers to Learning: None Requires PT Follow-Up: Yes Barriers to Learning: None Activity Tolerance Activity Tolerance: Patient limited by fatigue Patient Diagnosis(es): The primary encounter diagnosis was Urinary tract infection without hematuria, site unspecified. Diagnoses of Ureteral stent present and Calculus of ureter were also pertinent to this visit. has a past medical history of Kidney stone. has a past surgical history that includes Skin biopsy; Knee Arthroplasty (Right, 2015); Hysterectomy; Colonoscopy; and Extracorporeal shock wave lithotripsy (Left, 07/06/2022). Restrictions Restrictions/Precautions Restrictions/Precautions: General Precautions, Fall Risk Required Braces or Orthoses?: No Vision/Hearing Vision: Within Functional Limits Vision Exceptions: Wears glasses for reading Hearing: Impaired Hearing Exceptions: Bilateral hearing aid (not in during evaluation) Cognition/Orientation Overall Cognitive Status: [facility] [place] Cognition Comment: daughter reports slight change in cognition from baseline. Pt A&O x4 Overall Orientation Status: Within Functional Limits Subjective General Chart Reviewed: Yes Patient Assessed for Rehabilitation Services: Yes Additional Pertinent Hx: Pt admitted 07/17 with c/o fever, bilateral flank pain, and nausea. She was recently in for ureteral stent placement 07/06/22 Family / Caregiver Present: Yes (daughter) Follows Commands: Within Functional Limits General Comment Comments: Fidel GONZALEZ okay for therapy Subjective Subjective: Pt pleasant and agreeable to therapy evaluation Pain Assessment Pain Assessment: No/denies pain Oxygen Therapy O2 Delivery Method: Nasal cannula O2 Flow Rate (L/min): 3 L/min Social/Functional History Social/Functional History Lives With: Daughter Type of Home: Apartment Home Layout: One level Home Access: Stairs to enter without rails Entrance Stairs - Number of Steps: 1 Bathroom Shower/Tub: Walk-in shower Bathroom Toilet: Standard Bathroom Equipment: (denies) Bathroom Accessibility: Accessible Home Equipment: (denies) Receives Help From: Family ADL Assistance: Independent Homemaking Assistance: Independent Homemaking Responsibilities: Yes Ambulation Assistance: Independent (no device) Transfer Assistance: Independent Active Search Marketing Coordinator: Yes Objective Observation/Palpation Posture: Fair Observation: 3L O2, CDU tele intact. SpO2 WNL throughout evaluation, RN notified. HR ~98-116 with mobility. PA notified. Gross Assessment Gross Assessment: Yes Strength: Generally decreased, functional Sensation: Intact Gross Assessment: Yes Strength: Generally decreased, functional Sensation: Intact Bed mobility Supine to Sit: Modified independent Sit to Supine: Modified independent Scooting: Modified independent Comment: Pt completes bed mobility at mod I with HOB elevated. No difficulty noted. Pt denies dizziness with position change. Transfers Sit to Stand: Contact guard assistance, Stand by assistance Stand to sit: Contact guard assistance, Stand by assistance Bed to Chair: Contact guard assistance Comment: Pt completes x2 sit<->stand from EOB without AD. Initial CGA to monitor stability progressing to SBA with additional transfer. When completing sit<- >stand transfer to FWW, PT provided visual demonstration for proper hand placement with good carryover of cues noted. When completing to/from FWW, pt requires SBA to monitor stability. No LOB or unsteadiness noted. Pt denies dizziness with position change. Pt completes stand-step transfer from EOB<->BSC without AD. Pt requires CGA to monitor stability. No LOB or unsteadiness noted. Pt demos good alignment to surface and hand placement. Ambulation Ambulation: Yes Ambulation 1 Surface 1: Level tile Device 1: No device Assistance 1: Contact guard Quality of Gait 1: reciprocal stepping, equal step length, slow jerrica, path deviations, instability throughout all phases, No LOB Quality of Gait Comment 1: Pt ambulates ~100 feet without AD. Pt demos reciprocal gait pattern, frequently reaches out for environmental supports. Pt demos generalized unsteadiness with R path deviations however, no significant LOB noted. Pt ambulates with generalized instability and decreased gaitspeed. Pt requires CGA to monitor stability. Distance (ft) 1: ~100 feet Ambulation 2 Surface 2: Level tile Device 2: Rolling walker Assistance 2: Standby assistance Quality of Gait 2: reciprocal stepping, equal step length, No LOB Quality of Gait Comment 2: Pt ambulates additional ~100 feet with FWW. Prior to ambulation, PT provided visual demonstration for proper FWW management as pt reports she has never used FWW before. Pt demos improvement in fluidity of gait. No significant LOB noted. Pt demos increased but appropriate gait speed, step through gait pattern. Pt requires intermittent cues to maintain HEMANT within FWW withgood carryover of cues. Distance (ft) 2: ~100 feet Balance Posture: Good Sitting - Static: Good Sitting - Dynamic: Good Standing - Static: Fair, + Standing - Dynamic: Fair, + Plan Times per Week: 2 visits Current Treatment Recommendations: Strengthening, ROM, Balance Training, Functional Mobility Training, Transfer Training, Endurance Training, Gait Training, Stair training, Neuromuscular Re-education, Pain Management, Home Exercise Program, Safety Education & Training, Patient/Caregiver Education & Training, Equipment Evaluation, Education, & procurement, Positioning Plan Comment: goals and plan of care established in collaboration with pt Safety Safety Devices Safety Devices in Place: Yes Type of Devices: All fall risk precatuions in place, Call light within reach, Gait belt, Patient atrisk for falls, Left in bed, Nurse notified AM-PAC Score AM-PAC Inpatient Mobility Raw Score: 20 Mobility Inpatient [facility] G-Code Modifier: CJ Goals Encounter Problems Encounter Problems (Active) Exercise Patient will complete lower extremity exercises for 1-2 sets / 5-10 reps in order to improve strength and activity tolerance for mobility. Start: 07/18/22 Expected End: 07/20/22 Mobility Patient will ambulate 100 feet with modified independence and least restrictive device in order to improve safety and independence with mobility. Start: 07/18/22 Expected End: 07/20/22 Patient will ascend and descend 1 stairs with least restrictive device and modified independence inorder to safely negotiate home. Start: 07/18/22 Expected End: 07/20/22 Pain - Adult Transfers Patient will complete functional transfer with least restrictive device with modified independence in order to prepare for ambulation. Start: 07/18/22 Expected End: 07/20/22 Education Education Given To: Patient, Family Education Provided: Goals, Energy Conservation, PT Role, General Safety, Gait Training, Plan of Care, Discharge recommendations, Functional Mobility Training, Equipment, Injury Prevention, Transfer Training Education Provided Comments: Educated on use of FWW at home Education Method: Demonstration, Verbal Barriers to Learning: None Education Outcome: Verbalized understanding, Demonstrated understanding, Continued education needed Therapy Time Individual Co-treatment Time In 1045 Time Out 1112 Minutes 27 Timed Code Treatment Minutes: 8 Minutes (gait x1) Pallavi Giordano PT * Lenny Mason OT - 07/18/2022 10:05 AM EST Occupational Therapy Facility/Department: [facility] Occupational Therapy Initial Evaluation NAME: Yash Francois : 1945 Date of Service: 07/18/2022 Having reviewed the treatment plan and goals for this patient, I certify that the plan of care below is medically necessary and appropriate. Discharge Recommendations: Home with assist PRN, Home with Home health OT OT Equipment Recommendations Equipment Needed: Yes (may benefit from FWW / device training to increase stabiltiy. Will continue to assess) Mobility Devices: Walker Walker: Rolling Assessment Performance deficits / Impairments: Decreased functional mobility , Decreased ADL status, Decreasedendurance, Decreased balance, Decreased high-level IADLs, Decreased posture Assessment: Pt in 07/17 with c/o fever, yolande flank pain, and nausea. She was recently in for ureteral stent placement. She was previously IND for ADLs, IADLs, and functional transfers / mobiltiy withouta device. She is currently CGA - SBA for ADLs, IADLs, and functional transfers / mobility without adevice. She was able to complete donning / doffing of footwear without phsyical assist this date and no gross LOB. General instability noted with OOB activity at this time. Extended time requried forOOB activity with noted use of environmental supports for safety. Her HR was noted to be elevated during OOB activity to ~135 , however recovers to 115 with return to bed. SpO2 noted to be WFL througout on 4L O2 n.c. She would benefit from skilled OT services to address the above. Recommend plannedD/C for [facility] OT with assist PRN. Prognosis: Good Decision Making: Medium Complexity History: Pt in 07/17 with c/o fever, yolande flank pain, and nausea. She was recently in for ureteral stent placement. Exam: AM-PAC Assistance / Modification: CGA - SBA REQUIRES OT FOLLOW-UP: Yes Activity Tolerance Activity Tolerance: Treatment limited secondary to medical complications (free text), Patient limited by fatigue Activity Tolerance: elevated HR Patient Diagnosis(es): The primary encounter diagnosis was Urinary tract infection without hematuria, site unspecified. Diagnoses of Ureteral stent present and Calculus of ureter were also pertinent to this visit. has a past medical history of Kidney stone. has a past surgical history that includes Skin biopsy; Knee Arthroplasty (Right, 2015); Hysterectomy; Colonoscopy; and Extracorporeal shock wave lithotripsy (Left, 07/06/2022). Restrictions Restrictions/Precautions Restrictions/Precautions: General Precautions, Fall Risk Required Braces or Orthoses?: No Vision/Hearing Vision: Within Functional Limits Vision Exceptions: Wears glasses for reading Hearing: Impaired Hearing Exceptions: Bilateral hearing aid Cognition/Orientation Overall Cognitive Status: WFL Overall Orientation Status: Within Functional Limits Subjective General Chart Reviewed: Yes Patient Assessed for Rehabilitation Services: Yes Family / Caregiver Present: No Subjective Subjective: pleasant and cooperative General Comments Comments: OK to see per RN Pain Assessment Pain Assessment: No/denies pain Social/Functional History Social/Functional History Lives With: Daughter Type of Home: Apartment Home Layout: One level Home Access: Stairs to enter without rails Entrance Stairs - Number of Steps: 1 Bathroom Shower/Tub: Walk-in shower Bathroom Toilet: Standard Bathroom Equipment: (denies) Bathroom Accessibility: Accessible Home Equipment: (denies) Receives Help From: Family ADL Assistance: Independent Homemaking Assistance: Independent Homemaking Responsibilities: Yes Ambulation Assistance: Independent (no device) Transfer Assistance: Independent Active Search Marketing Coordinator: Yes Objective Gross Assessment: Yes AROM: Within functional limits (> 90 BUE shoulder flexion functionally observe) Strength: Within functional limits (grossly 4+/5 BUE grossly observed) Observation/Palpation Posture: Fair Observation: CDU tele intact and in place, PIV intact, 4L O2 n.c donned upon arrival. SpO2 remains WFL throughout. HR noted to be in 110s upon arrival while resting in supine. Noted HR increase to ~132 during short mobility with return to ~115 with return to supine. Balance Sitting Balance: Modified independent (seated EOB) Standing Balance: Stand by assistance Standing Balance Time: ~ 2 mintues Activity: standing rest breaks, checking SpO2 and HR Comment: No true LOB, no device, no c/o dizziness, Pt however demos diminished stabiltiy in standing Functional Mobility Functional - Mobility Device: No device Activity: Other (functional home distances) Assist Level: Stand by assistance Functional Mobility Comments: no true LOB, increased time requried to complete. Increased HR noted,see observation. Occasional use of environmental supports for safety. Increased fatigue. SpO2 remains WFL throughout session. ADL Feeding: Modified independent Grooming: Supervision UE Bathing: Stand by assistance LE Bathing: Contact guard assistance UE Dressing: Supervision LE Dressing: Contact guard assistance Toileting: Contact guard assistance Additional Comments: Pt requires increased time to complete all functional tasks this date. She demos good abiltiy to don / doff socks seated at EOB. No gross LOB with OOB activity, however mildly increased fatigue, instability, and elevated HR inhibit prolonged participation in OOB ADL tasks for safety. She demos mild instability with use of environmental supports to assist her. Bed mobility Supine to Sit: Modified independent Sit to Supine: Modified independent Scooting: Modified independent Comment: No c/o dizziness, no use of bed rails, HR and SpO2 remains WFL. Increased time require to complete. Transfers Sit to stand: Stand by assistance Stand to sit: Stand by assistance Transfer Comments: from EOB to no device. No c/o dizziness with positional changes. SBA for safety with good hand placement noted for push up from / reach back for seated surfaces. Extended time required to complete. Mild instability noted with SBA for safety. Plan Times per Week: 5 visits Current Treatment Recommendations: Strengthening, Balance Training, Functional Mobility Training, Endurance Training, Safety Education & Training, Patient/Caregiver Education & Training, Equipment Evaluation, Education, & procurement, Self-Care / ADL, Home Management Training Plan Comment: POC and goals established in collaboration with pt. Safety Safety Devices in place: Yes Type of devices: All fall risk precautions in place, Call light within reach, Gait belt, Patient atrisk for falls, Left in bed, Nurse notified Restraints Initially in place: No AM-PAC Score AM-PAC Inpatient Daily Activity Raw Score: 19 ADL Inpatient CMS G-Code Modifier: CK Goals Encounter Problems Encounter Problems (Active) Balance Patient will tolerate standing for 3 minutes to allow increased endurance and balance for ADL tasks. Start: 07/18/22 Expected End: 07/25/22 Dressing Upper Extremities Patient will complete upper body dressing MOD I Start: 07/18/22 Expected End: 07/25/22 Dressings Lower Extremities Patient will dress lower body MOD I Start: 07/18/22 Expected End: 07/25/22 Grooming Patient will complete daily grooming tasks MOD I Start: 07/18/22 Expected End: 07/25/22 Mobility Patient will demonstrate functional mobility with MOD I Start: 07/18/22 Expected End: 07/25/22 Toileting Patient will complete toileting tasks at standard toilet with modified independence. Start: 07/18/22 Expected End: 07/25/22 Transfers Patient will complete functional transfer with least restrictive device with modified independence in order to prepare for ambulation. Start: 07/18/22 Expected End: 07/25/22 Education Education Given To: Patient Education Provided: OT Role, Plan of Care, IADL Safety Education Method: Demonstration, Verbal Barriers to Learning: None Education Outcome: Verbalized understanding, Demonstrated understanding Therapy Time Individual Co-treatment Time In 0804 Time Out 0825 Minutes 21 Lenny Mason OT documented in this [facility]02-10-2023 Note* Care Coordination - Martha Cuevas RN - 07/22/2022 12:37 PM EST Pt with UTI after recent ureteral stent placement and plan for surgery on 08/02/22. She is currently on oral abx. Pt with PAF noted in ED and cardiology following; medication adjusted. Initial PT/OT note indicated home with assist PRN and HHPT; also recommended for rolling walker which has been noted to have been delivered to pt while in hospital. Current disposition plan is for return to home with dtr when medically stable. No anticipated DC needs at this time. TCC will continue to follow. [facility] [id number] Note* Care Coordination - Martha Cuevas RN - 07/22/2022 12:37 PM EST Pt with UTI after recent ureteral stent placement and plan for surgery on 08/02/22. She is currently on oral abx. Pt with PAF noted in ED and cardiology following; medication adjusted. Initial PT/OT note indicated home with assist PRN and HHPT; also recommended for rolling walker which has been noted to have been delivered to pt while in hospital. Current disposition plan is for return to home with dtr when medically stable. No anticipated DC needs at this time. TCC will continue to follow. [facility] [id number] Telephone encounter Note* Telephone Encounter - Daija Clay - 07/21/2022 5:02 PM EST Message released to patient as written. Patient's further questions if applicable: N/A Were all questions from office addressed or relayed to the patient from encounter: Yes [facility] [id number] Miscellaneous Notes* Telephone Encounter - Daija Clay - 07/21/2022 5:02 PM EST Message released to patient as written. Patient's further questions if applicable: N/A Were all questions from office addressed or relayed to the patient from encounter: Yes documented in this encounterSDoctors [id number] Note* Care Coordination - Karen Ruiz RN - 07/21/2022 4:17 PM EST Care Managment Initial Assessment Date: 07/21/2022 Patient Name: Yash Francois : 1945 Patient Information Source of Information: Patient Name/Contact Information: CARMEN REYNA DAUGHTER [phone] Cognition/Language: WFL - Within Functional Limits Permission given to speak with patient agency service representative/caregiver as indicated: Yes Confirmation of Payer with patient/family: Yes Payer Name: [employer] MEDICARE ADVANTAGE : No Confirmation of Primary Care Physician: No PCP PCP Name: HAS APPT WITH DR. PARKER ON Seen in last 2 years?: No Primary Caregiver: Self If assistance needed, confirmed caregiver ready, willing and able to care for patient at discharge: Confirmed with: Living Arrangements Current Residence: Apartment Number of Floors 1 Number of Entry Steps: 1 Bed/Bath Levels: Both first floor Facility: Facility Name: [facility] Plan to Return: Yes Lives with: Children (DAUGHTER) Support Systems: Children Activities of Daily Living Ambulation: Independent Bathing/Dressing: Independent Elimination/Continence/Toileting: Independent Feeding: Who Assists with Activities of Daily Living: NA Instrumental Activities of Daily Living Prescription Coverage: Yes Pharmacy Used: [facility] [place] Medication Management: Independent Transportation/Shopping: Independent Transportation Mode: Car Needs Assistance with Transportation at Discharge: No (DAUGHTER OR SON) Meal Preparation: Independent Laundry/Cleaning: Independent Finances/Bill Paying: Independent Communication: Independent Types of Care Services/Equipment Utilized Care Services: Dialysis Type: NA Durable Medical Equipment: DME Provider: DENIES Patient's Goal/Discharge Plan Patient expects to be discharged to: HOME Discharge Planning Actions: Continue to follow Patient's Choice Rights and [employer] and Collaborative Relationships Disclosed as Indicated for Post-Acute Care: NA Interdisciplinary Team Engagement: Social Work Referral for: Additional Information: inpatient status from home with UTI. Initial blood cultures positive on or proteus mirabilis. Repeat blood cultures obtained 07/19. Urology consulted receiving iv antibiotic with plan to transition to oral this afternoon. Plan for surgery on 08/02 by urology for removal ofadditional stone. Initial intervention with left ureteral stent placement 07/02/22. Did experience paroxysmal atrial fibrillation in ER and cardiology consulted. Did increase metoprolol dose. Per cardiology,OAC is not needed at this time. Discharge preparation checklist reviewed with patient. Has prescription coverage and able to afford medications. Lives with daughter and is independent in her adls. FWW was recommended by therapy and was delivered by [employer] liaison. Follow up appt with familypractice has been scheduled by rn social services and is on AVS. Discharge plan is home with daughter when medically stable.. Karen Ruiz RN [facility] [id number] Note* Care Coordination - Karen Ruiz RN - 07/21/2022 4:17 PM EST Care Managment Initial Assessment Date: 07/21/2022 Patient Name: Yash Francois : 1945 Patient Information Source of Information: Patient Name/Contact Information: CARMEN REYNA DAUGHTER [phone] Cognition/Language: WFL - Within Functional Limits Permission given to speak with patient agency service representative/caregiver as indicated: Yes Confirmation of Payer with patient/family: Yes Payer Name: [facility] MEDIC[facility] ADVANTAGE [place]: No Confirmation of Primary Care Physician: No PCP PCP Name: HAS APPT WITH DR. PARKER ON Seen in last 2 years?: No Primary Caregiver: Self If assistance needed, confirmed caregiver ready, willing and able to care for patient at discharge: Confirmed with: Living Arrangements Current Residence: Apartment Number of Floors 1 Number of Entry Steps: 1 Bed/Bath Levels: Both first floor Facility: Facility Name: [facility] Plan to Return: Yes Lives with: Children (DAUGHTER) Support Systems: Children Activities of Daily Living Ambulation: Independent Bathing/Dressing: Independent Elimination/Continence/Toileting: Independent Feeding: Who Assists with Activities of Daily Living: NA Instrumental Activities of Daily Living Prescription Coverage: Yes [facility] [place] Medication Management: Independent Transportation/Shopping: Independent Transportation Mode: Car Needs Assistance with Transportation at Discharge: No (DAUGHTER OR SON) Meal Preparation: Independent Laundry/Cleaning: Independent Finances/Bill Paying: Independent Communication: Independent Types of Care Services/Equipment Utilized Care Services: Dialysis Type: NA Durable Medical Equipment: DME Provider: DENIES Patient's Goal/Discharge Plan Patient expects to be discharged to: HOME Discharge Planning Actions: Continue to follow Patient's Choice Rights and [employer] and Collaborative Relationships Disclosed as Indicated for Post-Acute Care: NA Interdisciplinary Team Engagement: Social Work Referral for: Additional Information: inpatient status from home with UTI. Initial blood cultures positive on or proteus mirabilis. Repeat blood cultures obtained 07/19. Urology consulted receiving iv antibiotic with plan to transition to oral this afternoon. Plan for surgery on 08/02 by urology for removal ofadditional stone. Initial intervention with left ureteral stent placement 07/02/22. Did experience paroxysmal atrial fibrillation in ER and cardiology consulted. Did increase metoprolol dose. Per cardiology,OAC is not needed at this time. Discharge preparation checklist reviewed with patient. Has prescription coverage and able to afford medications. Lives with daughter and is independent in her adls. FWW was recommended by therapy and was delivered by [employer] liaison. Follow up appt with familypractice has been scheduled by rn social services and is on AVS. Discharge plan is home with daughter when medically stable.. Karen Ruiz RN [facility] [id number] Telephone encounter Note* Telephone Encounter - Giuliana Toribio - 07/21/2022 3:31 PM EST Attempted to contact patient. Voicemail box is not set up. Also attempted pt's daughter (per chart)and the phone service is no longer available. Patient is scheduled for surgery at [facility] 08/02/2022 @ 12:00 PM with arrival time of 10:00 AM. Will attempt to contact patient again. [facility] [id number] Miscellaneous Notes* Telephone Encounter - Giuliana Toribio - 07/21/2022 3:31 PM EST Attempted to contact patient. Voicemail box is not set up. Also attempted pt's daughter (per chart)and the phone service is no longer available. Patient is scheduled for surgery at [facility] 08/02/2022 @ 12:00 PM with arrival time of 10:00 AM. Will attempt to contact patient again. * Telephone Encounter - Jesus Cabello APRN - SAFIA - 07/21/2022 11:46 AM EST SURGERY SCHEDULING PROCEDURE: cystoscopy retrograde pyelogram left ureteroscopy laser lithotripsy left ureteral stent change. DIAGNOSIS: left kidney and ureteral calculus FACILITY: [facility] DETAILS: OUTPT ANESTHESIA: GENERAL TIME REQUESTED: 1 HR DATE REQUESTED: 08/02/22 POST OP FOLLOW UP: cysto stent removal 1 wk REP REQUESTED: MEDICAL CLEARANCE: no CONFERENCE: NO COVID TESTING: NO Not on blood thinners Orders placed documented in this [facility]02-09-2023 Telephone encounter Note* Telephone Encounter - ANGEL Salazar CNP - 07/21/2022 11:46 AM EST SURGERY SCHEDULING PROCEDURE: cystoscopy retrograde pyelogram left ureteroscopy laser lithotripsy left ureteral stent change. DIAGNOSIS: left kidney and ureteral calculus FACILITY: [facility] DETAILS: OUTPT ANESTHESIA: GENERAL TIME REQUESTED: 1 HR DATE REQUESTED: 08/02/22 POST OP FOLLOW UP: cysto stent removal 1 wk REP REQUESTED: MEDICAL CLEARANCE: no CONFERENCE: NO COVID TESTING: NO Not on blood thinners Orders placed [facility] [id number] Plan of care note* Care Plan - Toya Cardenas RN - 07/21/2022 7:36 AM EST Problem: Pain - Adult Goal: Verbalizes/displays adequate comfort level or baseline comfort level Outcome: Progressing Problem: Infection - Adult Goal: Absence of infection at discharge Outcome: Progressing Goal: Absence of infection during hospitalization Outcome: Progressing Goal: Absence of fever/infection during anticipated neutropenic period Outcome: Progressing Problem: Safety - Adult Goal: Free from fall injury Outcome: Progressing Problem: Discharge Planning Goal: Discharge to home or other facility with appropriate resources Outcome: Progressing The patient is Moderately Stable - Low risk of patient condition declining or worsening The patient's goals for the shift include The clinical goals for the shift include Over the shift, the patient did not make progress toward the following goals. Barriers to progression include . Recommendations to address these barriers include . [facility] [id number] Note* Individualized Overall Plan of Care Note - ANGEL Salazar CNP - 07/20/2022 12:48 PM EST Discussed with Dr. Joya and she would like patient to have CT abdomen pelvis to determine exactly where stones are since she is passing stones and has ureteral calculi as well. [facility] [id number] Note* Individualized Overall Plan of Care Note - ANGEL Salazar CNP - 07/20/2022 12:48 PM EST Discussed with Dr. Joya and she would like patient to have CT abdomen pelvis to determine exactly where stones are since she is passing stones and has ureteral calculi as well. [facility] [id number] Note* Care Coordination - LELO Padilla - 07/20/2022 9:40 AM EST S/W, following [facility] aware of need for FWW. Spoke with Tyler in [facility], will deliver patient wealker later today. [facility] [id number] Note* Care Coordination - ELLO Padilla - 07/20/2022 9:40 AM EST S/W, following [facility] aware of need for FWW. [facility] wealker later today. [facility]02-07-2023 Note* Significant Event - Velvet Isbell NP - 07/19/2022 1:10 PM EST 1:10 PM Discussed case with CLAUDETTE Yeager. Patient meets inpatient admission criteria. Patient accepted to by Dr. Lane. Admission order placed and nursing updated. Velvet Isbell CNP [facility]02-07-2023 Note* Significant Event - Velvet Isbell NP - 07/19/2022 1:10 PM EST 1:10 PM Discussed case with CLAUDETTE Yeager. Patient meets inpatient admission criteria. Patient accepted to by Dr. Lane. Admission order placed and nursing updated. Velvet Isbell CNP [facility]02-07-2023 Note* Care Coordination - LELO Holden - 07/19/2022 11:36 AM EST Received a phone call back [facility]. Patient has been scheduled for a PCP appointment with Dr. Parker on 07/29/22. Appointment information added to patient's discharge instructions. Met with patient at bedside, introduced self and role. Explained the above information tot her. P atient understood this and denies any other additional needs or concerns from social work. [facility]02-07-2023 Note* Care Coordination - LELO Holden - 07/19/2022 11:36 AM EST Received a phone call back [facility]. Patient has been scheduled for a PCP appointment with Dr. Parker on 07/29/22. Appointment information added to patient's discharge instructions. Met with patient at bedside, introduced self and role. Explained the above information tot her. P atient understood this and denies any other additional needs or concerns from social work. [facility] [id number] Note* Care Coordination - LELO Holden - 07/19/2022 11:15 AM EST Social work coverage today. [facility], patient does not have a PCP atthis time. At this time, home health care services cannot be started right away until patient is seen by a PCP. Attempted to call [facility] receptionist airline lounge desk to make an appointmentfor patient to be established with a PCP. Left call back number. SW to follow. [facility] [id number] Note* Care Coordination - LELO Holden - 07/19/2022 11:15 AM EST Social work coverage today. Spoke with [facility] liaison, patient does not have a PCP atthis time. At this time, home health care services cannot be started right away until patient is seen by a PCP. Attempted to call [facility] receptionist airline lounge desk to make an appointmentfor patient to be established with a PCP. Left call back number. SW to follow. [facility] [id number] Note* Home Care - Tameka Villanueva LPN - 07/19/2022 11:10 AM EST Spoke with patient regarding HHC. Patient does not have a PCP at this time. Spoke with patient about Family practice and she was agreeable to being seen there. I spoke with SW and she will make patient appt. Order Placed for FWW- [facility] will have it delivered to patient's home. She understands and is agreeable to this. [facility] [id number] Note* Home Care - Tameka Villanueva LPN - 07/19/2022 11:10 AM EST Spoke with patient regarding HHC. Patient does not have a PCP at this time. Spoke with patient about Family practice and she was agreeable to being seen there. I spoke with SW and she will make patient appt. Order Placed for [facility]WW- [facility] will have it delivered to patient's home. She understands and is agreeable to this. [facility] [id number] Consult note* Tavon Cox MD - 07/19/2022 10:45 AM EST Associated Order(s): IP CONSULT TO CARDIOLOGY Images from the original note were not included. [facility] CARDIOLOGY CONSULTATION Patient Name: Yash Francois : 1945 [...] and relatively brief. 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 She denies chest pain or shortness of breath with effort but has generally not felt well lately while trying to work. Impression and Recommendations Paroxysmal atrial fibrillation. Probably situational related to urinary tract infection. This morning she is regular around 90 bpm,difficult to tell from telemetry so we will [...] by mouth 2 times daily for 10 days.07/06/22 07/16/22 Julianne Joya, ferrous sulfate 325 (65 Fe) MG tablet Take 325 mg by mouth daily (with breakfast). Historical Provider, ibandronate (Boniva) 150 MG tablet Take 150 mg by mouth every 30 (thirty) days. 06/08/22 HistoricalProviderMD MAGNESIUM PO Take by mouth. Historical Provider, Multiple Vitamins-Minerals (ZINC PO) Take by mouth. Historical ProviderMD oxybutynin (Ditropan) 5 MG tablet Take 1 [...] 117 109 Resp: 18 18 Temp: 38 C (100.4 F) 37.7 C (99.8 F) 37.3 C (99.1 F) TempSrc: Oral Oral Temporal SpO2: 92% 90% [...] Heart sounds: No murmur heard. No gallop. Pulmonary: Effort: Pulmonary effort is normal. Breath sounds: Normal breath sounds. No wheezing or rales. Abdominal: General: There is no distension. Palpations: Abdomen is soft. Musculoskeletal: General: Normal range of motion. Right lower leg: No edema. Left lower leg: No edema. Skin: General: Skin is warm and dry. Neurological: General: No focal deficit present. Mental Status: She is alert. Psychiatric: Mood and Affect: Mood normal. Thought Content: Thought content normal. Pertinent Labs: Lab Results Component Value Date GLUCOSE 113 (H) 07/19/2022 CALCIUM 7.6 (L) 07/19/2022 NA 138 07/19/2022 K 3.3 (L) 07/19/2022 CO2 25 07/19/2022 CL 112 (H) 07/19/2022 BUN 17 07/19/2022 CREATININE 0.69 07/19/2022 Lab Results Component Value Date WBC 7.5 07/19/2022 HGB 10.4 (L) 07/19/2022 HCT 31.8 (L) 07/19/2022 MCV 84.5 07/19/2022 PLT 116 (L) 07/19/2022 Radiology: === 07/17/22 === XR ABDOMEN 1 VIEW - Impression - 1. Left ureteral stent, proximal coil are show only an wound, in the region of the left renal pelvis. Left renal calculi. Possible distal ureteral calculi on the left. Report Dictated on Electronically Signed By: Gregor Price Electronically Signed Date/Time: 07/17/2022 9:16 PM EST [place] Work Phone: [phone] 388-855202-07-2023 Consult note* Tavon Cox MD - 07/19/2022 10:45 AM ESTAssociated Order(s): IP CONSULT TO CARDIOLOGY Images from the original note were not included. [employer] [facility] CARDIOLOGY CONSULTATION Patient Name: Yash Francois : 1945 [...] and relatively brief. 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 She denies chest pain or shortness of breath with effort but has generally not felt well lately while trying to work. Impression and Recommendations Paroxysmal atrial fibrillation. Probably situational related to urinary tract infection. This morning she is regular around 90 bpm,difficult to tell from telemetry so we will [...] by mouth 2 times daily for 10 days.07/06/22 07/16/22 Julianne Joya DO ferrous sulfate 325 (65 Fe) MG tablet Take 325 mg by mouth daily (with breakfast). Historical Provider, ibandronate (Boniva) 150 MG tablet Take 150 mg by mouth every 30 (thirty) days. 06/08/22 HistoricalProvider, MAGNESIUM PO Take by mouth. Historical Provider, [...] 117 109 Resp: 18 18 Temp: 38 C (100.4 F) 37.7 C (99.8 F) 37.3 C (99.1 F) TempSrc: Oral Oral Temporal SpO2: 92% 90% [...] Heart sounds: No murmur heard. No gallop. Pulmonary: Effort: Pulmonary effort is normal. Breath sounds: Normal breath sounds. No wheezing or rales. Abdominal: General: There is no distension. Palpations: Abdomen is soft. Musculoskeletal: General: Normal range of motion. Right lower leg: No edema. Left lower leg: No edema. Skin: General: Skin is warm and dry. Neurological: General: No focal deficit present. Mental Status: She is alert. Psychiatric: Mood and Affect: Mood normal. Thought Content: Thought content normal. Pertinent Labs: Lab Results Component Value Date GLUCOSE 113 (H) 07/19/2022 CALCIUM 7.6 (L) 07/19/2022 NA 138 07/19/2022 K 3.3 (L) 07/19/2022 CO2 25 07/19/2022 CL 112 (H) 07/19/2022 BUN 17 07/19/2022 CREATININE 0.69 07/19/2022 Lab Results Component Value Date WBC 7.5 07/19/2022 HGB 10.4 (L) 07/19/2022 HCT 31.8 (L) 07/19/2022 MCV 84.5 07/19/2022 PLT 116 (L) 07/19/2022 Radiology: === 07/17/22 === XR ABDOMEN 1 VIEW - Impression - 1. Left ureteral stent, proximal coil are show only an wound, in the region of the left renal pelvis. Left renal calculi. Possible distal ureteral calculi on the left. Report Dictated on Electronically Signed By: Gregor Price Electronically Signed Date/Time: 07/17/2022 9:16 PM EST documented in this [facility]02-07-2023 Plan of care note* Care Plan - Kika Paz RN - 07/19/2022 7:28 AM EST Problem: Pain - Adult Goal: Verbalizes/displays adequate comfort level or baseline comfort level Outcome: Progressing Problem: Infection - Adult Goal: Absence of infection at discharge Outcome: Progressing Goal: Absence of infection during hospitalization Outcome: Progressing Goal: Absence of fever/infection during anticipated neutropenic period Outcome: Progressing Problem: Safety - Adult Goal: Free from fall injury Outcome: Progressing Problem: Discharge Planning Goal: Discharge to home or other facility with appropriate resources Outcome: Progressing Problem: Chronic Conditions and Co-morbidities Goal: Patient's chronic conditions and co-morbidity symptoms are monitored and maintained or improved Outcome: Progressing [facility] [id number] Nurse Note* Kika Paz RN - 07/18/2022 1:33 PM EST Pt given supplies for bed side bath. Warm water basin, washcloths, towels, new gown and pants. Pt also given comb, tooth brush, toothpaste, and mouth wash. Pt left safe, call light in reach. [facility] [id number] Plan of care note* Care Plan - Kika Paz RN - 07/18/2022 7:46 AM EST Problem: Pain - Adult Goal: Verbalizes/displays adequate comfort level or baseline comfort level Outcome: Progressing Problem: Infection - Adult Goal: Absence of infection at discharge Outcome: Progressing Goal: Absence of infection during hospitalization Outcome: Progressing Goal: Absence of fever/infection during anticipated neutropenic period Outcome: Progressing Problem: Safety - Adult Goal: Free from fall injury Outcome: Progressing Problem: Discharge Planning Goal: Discharge to home or other facility with appropriate resources Outcome: Progressing Problem: Chronic Conditions and Co-morbidities Goal: Patient's chronic conditions and co-morbidity symptoms are monitored and maintained or improved Outcome: Progressing [facility] [id number] Emergency department Note* Xiao Marrero RN - 07/17/2022 10:58 PM EST thank you. pt desat to 84% while sleeping. pt states she does not has a history of sleep apnea. placed on 2 L woken up. now sat at 94%. Silvana Jain CNP notified Xiao Marrero RN 07/17/22 148 [facility] [id number] Emergency department Note* Xiao Marrero RN - 07/17/2022 10:58 PM EST thank you. pt desat to 84% while sleeping. pt states she does not has a history of sleep apnea. placed on 2 L woken up. now sat at 94%. Silvana Jain CNP notified Xiao Marrero RN 07/17/22 [id number] * Xiao Marrero RN - 07/17/2022 9:34 PM EST Pt given ice water. Denies questions and concerns at this time. Call light within reach with verbalunderstanding how to use. 0 side rail up Xiao Marrero RN 07/17/22 [id number] * Cody Norton MD - 07/17/2022 8:28 PM EST Emergency Department Encounter [facility] ED Patient: Yash Francois : 1945 Date of Evaluation: 07/17/2022 ED Supervising Physician: Cody Norton MD I independently examined and evaluated Yash Francois. This will serve as my Supervisory note and shared attestation. I did perform a substantive portion of the visit including all aspects of the Medical Decision Making. I wore appropriate PPE for the entirety of this encounter. In brief, Yash Francois is a 76 y.o. female that presents to the emergency department for evaluation of fevers. She is also felt chills. She is had nausea without vomiting. Denies any gross hematuria or significant dysuria but she does have ureteral stents in place for recent diagnosis of kidneystone. Complains of congestion today. Focused exam: Awake and alert. Nontoxic in appearance. Lungs clear to auscultation. Heart regular rate and rhythm. Abdomen soft nondistended with mild suprapubic tenderness but no rebound or guarding. No peritoneal findings. No significant flank tenderness. EKG: Normal sinus rhythm. Rate of 99. Borderline left axis deviation. Criteria for LVH. Intraventricular conduction delay. No old EKG available for comparison. Today's EKG read by this examiner Lab studies obtained. White count normal. No anemia. No severe renal insufficiency. Urinalysis is nitrite positive with white blood cells and red blood cells. Lab studies reviewed by this examiner. KUB shows a left ureteral stent with the proximal portion is partially unwound. She also has multiple stones in the left kidney and possibly also in the left ureter. Read by this examiner Brief ED course/MDM: Patient with low-grade fever, has urinary tract infection with stents in placeand the stent may be not be in optimal position. We will start patient on IV antibiotics and consider admission for further treatment and consultation with urology in the morning. All diagnostic, treatment, and disposition decisions were made by myself in conjunction with the REBEKAH. For all further details of the patient's emergency department visit, please see their documentation. (Comment: Please note this report has been produced using speech recognition software and may contain errors related to that system including errors in grammar, punctuation, and spelling, as well as words and phrases that may be inappropriate. If there are any questions or concerns please feel freeto contact the dictating provider for clarification.) Cody Norton MD [email or web address] [facility] Cody Norton MD 07/17/22 [id number] * CARLOS Mckeon - 07/17/2022 8:28 PM EST [facility] ED eMERGENCY dEPARTMENT eNCOUnter Pt Name: Yash Francois Birthdate 1945 Date of evaluation: 07/17/2022 Provider: CARLOS MCKEON CHIEF COMPLAINT Chief Complaint Patient presents with Fever Fever chills nausea no vomiting pt has stent in left ureter and is having pain in her back and her stomach HISTORY OF PRESENT ILLNESS (Location/Symptom, Timing/Onset,Context/Setting, Quality, Duration, Modifying Factors, Severity) Note limiting factors. HPI This patient is seen in conjunction with Dr. Norton who also interviewed and evaluated the patient at bedside. Yash Francois is a 76 y.o. female who presents to the emergency department complaining of bilateral flank pain, left greater than right, for nearly 2 months. She developed kidney stones 2 months ago for the first time in her life. Since then she has had lithotripsy by Dr. Joya and she has stentsin both ureters. Today, she has developed some nausea without vomiting and she developed a low-grade fever at home. She does complain of some left-sided flank pain. She has her discharge papers from her last visit with her and she was supposed to schedule a KUB as an outpatient follow-up before July 20. Nursing Notes were reviewed. REVIEW OF SYSTEMS (2+ for4; 10+ for level 5) Review of Systems Constitutional: Positive for fatigue and fever. Negative for chills. HENT: Negative for ear pain and sore throat. Eyes: Negative for pain and visual disturbance. Respiratory: Negative for cough and shortness of breath. Cardiovascular: Negative for chest pain and palpitations. Gastrointestinal: Negative for abdominal pain and vomiting. Genitourinary: Positive for flank pain. Negative for dysuria and hematuria. Musculoskeletal: Negative for arthralgias and back pain. Skin: Negative for color change and rash. Neurological: Negative for seizures and syncope. All other systems reviewed and are negative. PAST MEDICAL HISTORY Past Medical History: Diagnosis Date Kidney stone SURGICALHISTORY Past Surgical History: Procedure Laterality Date COLONOSCOPY EXTRACORPOREAL SHOCK WAVE LITHOTRIPSY Left 07/06/2022 cystoscopy,retrograde pyelogram- dr. Joya HYSTERECTOMY KNEE ARTHROPLASTY Right 2016 SKIN BIOPSY CURRENT MEDICATIONS Previous Medications COLLAGEN PO Take by mouth. CYANOCOBALAMIN (B-12 PO) Take by mouth. FERROUS SULFATE 325 (65 FE) MG TABLET Take 325 mg by mouth daily (with breakfast). IBANDRONATE (BONIVA) 150 MG TABLET Take 150 mg by mouth every 30 (thirty) days. MAGNESIUM PO Take by mouth. MULTIPLE VITAMINS-MINERALS (ZINC PO) Take by mouth. OXYBUTYNIN (DITROPAN) 5 MG TABLET Take 1 tablet (5 mg) by mouth 3 times daily as needed (urinary frequency, urgency, bladder spasms). TAMSULOSIN (FLOMAX) 0.4 MG 24 HR CAPSULE Take 1 capsule (0.4 mg) by mouth daily. Oxycodone FAMILY HISTORY No family history on file. SOCIAL HISTORY Social History Socioeconomic History Marital status: Tobacco Use Smoking status: Never Smokeless tobacco: Never Vaping Use Vaping Use: Never used Substance and Sexual Activity Alcohol use: Never Drug use: Not Currently Social Determinants of Health Transportation Needs: No Transportation Needs Lack of Transportation (Medical): No Lack of Transportation (Non-Medical): No Housing Stability: Unknown Unable to Pay for Housing in the Last Year: No Unstable Housing in the Last Year: No SCREENINGS PHYSICAL EXAM (5+ for level 4, 8+ for level 5) @EDTRIAGEVSS@ Physical Exam Vitals and nursing note reviewed. Constitutional: General: She is not in acute distress. Appearance: Normal appearance. She is well-developed. HENT: Head: Normocephalic and atraumatic. Eyes: Conjunctiva/sclera: Conjunctivae normal. Cardiovascular: Rate and Rhythm: Normal rate and regular rhythm. Heart sounds: No murmur heard. Pulmonary: Effort: Pulmonary effort is normal. No respiratory distress. Breath sounds: Normal breath sounds. Abdominal: General: Abdomen is flat. Palpations: Abdomen is soft. Tenderness: There is no abdominal tenderness. There is left CVA tenderness. Musculoskeletal: General: No swelling. Skin: General: Skin is warm and dry. Neurological: Mental Status: She is alert and oriented to person, place, and time. Psychiatric: Mood and Affect: Mood normal. Behavior: Behavior normal. DIAGNOSTIC RESULTS EKG (Per Emergency Physician): RADIOLOGY (Per EmergencyPhysician): Interpretation per the Radiologist below, if available at the time of this note: @EDRISRSLT@ : Labs Reviewed COMPREHENSIVE METABOLIC PANEL - Abnormal [...] 3.0 Basophils Relative 0.8 Neutrophils Absolute 5.4 Lymphocytes Absolute 1.1 Monocytes Absolute 0.5 Eosinophils Absolute 0.2 Basophils Absolute 0.1 COMPLETE URINALYSIS - Abnormal Color, Urine Dark Yellow (*) Clarity, Urine Turbid (*) pH, Urine 7.5 Leukocytes, Urine 500 (*) Nitrite, Urine Positive (*) Protein, Urine 30 (*) Glucose, Urine Normal Bilirubin, Urine Negative Ketones, Urine Negative Urobilinogen, Urine Normal Blood, Urine >1.0 (*) RBC, Urine 11-25 (*) WBC, Urine 51-100 (*) Squamous Epithelial, Urine 3-5 Bacteria, Urine Many (*) Mucus, Urine Few WBC Clumps, Urine Few (*) SPECIFIC GRAVITY OF URINE (NUMERIC) 1.013 LACTIC ACID, SEPSIS WITH REFLEX IF ELEVATED - Normal LACTIC ACID 0.9 BLOOD CULTURE BLOOD CULTURE URINE CULTURE COMPLETE URINALYSIS WITH REFLEX TO CULTURE Narrative: The following orders were created for panel order Urinalysis complete with reflex to Culture. Procedure Abnormality Status --------- ------ Complete Urinalysis[[id number]] Abnormal Final result Please view results for these tests on the individual orders. All other labs were within normal range or not returned as of this dictation. EMERGENCY DEPARTMENT COURSE and DIFFERENTIALDIAGNOSIS/MDM: Vitals: Vitals: 07/17/22203107/17/222031 BP: (!) 150/80 Pulse: 88 Resp: 18 Temp: 37.8 C (100.1 F) TempSrc: Temporal SpO2: 96% Weight: 73 kg (161 lb) Height: 1.626 m (5' 4) Medications cefTRIAXone (Rocephin) 1,000 mg in sodium chloride 0.9 % 50 mL IVPB Mini-Bag Plus (1,000 mg IntraVENous New Bag 07/17/222220) acetaminophen (Tylenol) tablet 1,000 mg (1,000 mg Oral Given 07/17/222220) Medical Decision Making Problems Addressed: Calculus of ureter: complicated acute illness or injury Ureteral stent present: complicated acute illness or injury Urinary tract infection without hematuria, site unspecified: chronic illness or injury Amount and/or Complexity of Data Reviewed Labs: ordered. Radiology: ordered. ECG/medicine tests: ordered. Risk OTC drugs. Patient presents with a 2-month history of problems with kidney stones. She has had lithotripsy andshe has a stent in both ureters. Today she developed nausea without vomiting and noticed a low-grade fever at home. She states she has been feeling increasing pain on the left flank area. Differential diagnosis includes hydronephrosis, UTI, pyelonephritis, kidney stone, sepsis, gastritis, viral illness. Laboratory and imaging studies CBC shows a white count of 7.3. Hemoglobin 12.8. Basic metabolic profile with hepatic function studies show a glucose of 108. And sodium 139. Normal LFTs and kidney function are noted. Lactic acid is at 0.9. Routine urinalysis shows urine to be turbid with positive nitrites and 500 leukocytes. She has 51-100 white cells and many bacteria. Urine was sent for culture and blood cultures were also sent to the lab. The patient was started on IV Rocephin 1 g once. She received Tylenol 1 g here in the emergency department for fever. I did discuss this case with Silvana of the [facility] and I will admit [facility]. The patient and family are agreeable with admission. Chronic conditions impacting kidney stone and recurrent UTI. Social determinants affecting care: Patient is a non-smoker and does not drink alcohol. CONSULTS: None PROCEDURES: Unless otherwise noted below, none Procedures Patients symptoms are consistent with sepsis, severe sepsis, or septic shock (If yes use .sepsiscoremeasure): No FINAL IMPRESSION 1. Urinary tract infection without hematuria, site unspecified 2. Ureteral stent present 3. Calculus of ureter DISPOSITION/PLAN DISPOSITION Observation 07/17/2022 10:27:10 PM PATIENT REFERRED TO: No follow-up provider specified. DISCHARGE MEDICATIONS: New Prescriptions No medications on file @[facility]([id number]:LAST:1)@ (Please note: Portions of this note were completed with a voice recognition program. Efforts were made to edit thedictations but occasionally words and phrases are mis-transcribed.) Form [id number] CARLOS MCKEON (electronically signed) Emergency Medicine Provider CARLOS Mckeon 07/17/222229 * Georgette Tao RN - 07/17/2022 8:28 PM EST Pt has been weak today, having fever, chills abd pain and nausea. documented in this [facility]02-05-2023 Emergency department Note* Xiao Marrero RN - 07/17/2022 9:34 PM EST Pt given ice water. Denies questions and concerns at this time. Call light within reach with verbalunderstanding how to use. 0 side rail up Xiao Marrero RN 07/17/222145 [facility] [id number] Emergency department Triage note* Georgette Tao RN - 07/17/2022 8:28 PM EST Pt has been weak today, having fever, chills abd pain and nausea. [id number] Physician Emergency department Note* Cody Norton MD - 07/17/2022 8:28 PM EST Emergency Department Encounter [facility] ED Patient: Yash Francois : 1945 Date of Evaluation: 07/17/2022 ED Supervising Physician: Cody Norton MD I independently examined and evaluated Yash Francois. This will serve as my Supervisory note and shared attestation. I did perform a substantive portion of the visit including all aspects of the Medical Decision Making. I wore appropriate PPE for the entirety of this encounter. In brief, Yash Francois is a 76 y.o. female that presents to the emergency department for evaluation of fevers. She is also felt chills. She is had nausea without vomiting. Denies any gross hematuria or significant dysuria but she does have ureteral stents in place for recent diagnosis of kidneystone. Complains of congestion today. Focused exam: Awake and alert. Nontoxic in appearance. Lungs clear to auscultation. Heart regular rate and rhythm. Abdomen soft nondistended with mild suprapubic tenderness but no rebound or guarding. No peritoneal findings. No significant flank tenderness. EKG: Normal sinus rhythm. Rate of 99. Borderline left axis deviation. Criteria for LVH. Intraventricular conduction delay. No old EKG available for comparison. Today's EKG read by this examiner Lab studies obtained. White count normal. No anemia. No severe renal insufficiency. Urinalysis is nitrite positive with white blood cells and red blood cells. Lab studies reviewed by this examiner. KUB shows a left ureteral stent with the proximal portion is partially unwound. She also has multiple stones in the left kidney and possibly also in the left ureter. Read by this examiner Brief ED course/MDM: Patient with low-grade fever, has urinary tract infection with stents in placeand the stent may be not be in optimal position. We will start patient on IV antibiotics and consider admission for further treatment and consultation with urology in the morning. All diagnostic, treatment, and disposition decisions were made by myself in conjunction with the REBEKAH. For all further details of the patient's emergency department visit, please see their documentation. (Comment: Please note this report has been produced using speech recognition software and may contain errors related to that system including errors in grammar, punctuation, and spelling, as well as words and phrases that may be inappropriate. If there are any questions or concerns please feel freeto contact the dictating provider for clarification.) Cody Norton MD [employer] [facility] Cody Norton MD 07/17/222207 [place] Work Phone: [phone] 293-734302-05-2023 Physician Emergency department Note* CARLOS Mckeon - 07/17/2022 8:28 PM EST [facility] ED eMERGENCY dEPARTMENT eNCOUnter Pt Name: Yash Francois Birthdate 1945 Date of evaluation: 07/17/2022 Provider: CARLOS MCKEON CHIEF COMPLAINT Chief Complaint Patient presents with Fever Fever chills nausea no vomiting pt has stent in left ureter and is having pain in her back and her stomach HISTORY OF PRESENT ILLNESS (Location/Symptom, Timing/Onset,Context/Setting, Quality, Duration, Modifying Factors, Severity) Note limiting factors. HPI This patient is seen in conjunction with Dr. Norton who also interviewed and evaluated the patient at bedside. Yash Francois is a 76 y.o. female who presents to the emergency department complaining of bilateral flank pain, left greater than right, for nearly 2 months. She developed kidney stones 2 months ago for the first time in her life. Since then she has had lithotripsy by Dr. Joya and she has stentsin both ureters. Today, she has developed some nausea without vomiting and she developed a low-grade fever at home. She does complain of some left-sided flank pain. She has her discharge papers from her last visit with her and she was supposed to schedule a KUB as an outpatient follow-up before July 20. Nursing Notes were reviewed. REVIEW OF SYSTEMS (2+ for4; 10+ for level 5) Review of Systems Constitutional: Positive for fatigue and fever. Negative for chills. HENT: Negative for ear pain and sore throat. Eyes: Negative for pain and visual disturbance. Respiratory: Negative for cough and shortness of breath. Cardiovascular: Negative for chest pain and palpitations. Gastrointestinal: Negative for abdominal pain and vomiting. Genitourinary: Positive for flank pain. Negative for dysuria and hematuria. Musculoskeletal: Negative for arthralgias and back pain. Skin: Negative for color change and rash. Neurological: Negative for seizures and syncope. All other systems reviewed and are negative. PAST MEDICAL HISTORY Past Medical History: Diagnosis Date Kidney stone SURGICALHISTORY Past Surgical History: Procedure Laterality Date COLONOSCOPY EXTRACORPOREAL SHOCK WAVE LITHOTRIPSY Left 07/06/2022 cystoscopy,retrograde pyelogram- dr. Joya HYSTERECTOMY KNEE ARTHROPLASTY Right 2015 SKIN BIOPSY CURRENT MEDICATIONS Previous Medications COLLAGEN PO Take by mouth. CYANOCOBALAMIN (B-12 PO) Take by mouth. FERROUS SULFATE 325 (65 FE) MG TABLET Take 325 mg by mouth daily (with breakfast). IBANDRONATE (BONIVA) 150 MG TABLET Take 150 mg by mouth every 30 (thirty) days. MAGNESIUM PO Take by mouth. MULTIPLE VITAMINS-MINERALS (ZINC PO) Take by mouth. OXYBUTYNIN (DITROPAN) 5 MG TABLET Take 1 tablet (5 mg) by mouth 3 times daily as needed (urinary frequency, urgency, bladder spasms). TAMSULOSIN (FLOMAX) 0.4 MG 24 HR CAPSULE Take 1 capsule (0.4 mg) by mouth daily. Oxycodone FAMILY HISTORY No family history on file. SOCIAL HISTORY Social History Socioeconomic History Marital status: Tobacco Use Smoking status: Never Smokeless tobacco: Never Vaping Use Vaping Use: Never used Substance and Sexual Activity Alcohol use: Never Drug use: Not Currently Social Determinants of Health Transportation Needs: No Transportation Needs Lack of Transportation (Medical): No Lack of Transportation (Non-Medical): No Housing Stability: Unknown Unable to Pay for Housing in the Last Year: No Unstable Housing in the Last Year: No SCREENINGS PHYSICAL EXAM (5+ for level 4, 8+ for level 5) @EDTRIAGEVSS@ Physical Exam Vitals and nursing note reviewed. Constitutional: General: She is not in acute distress. Appearance: Normal appearance. She is well-developed. HENT: Head: Normocephalic and atraumatic. Eyes: Conjunctiva/sclera: Conjunctivae normal. Cardiovascular: Rate and Rhythm: Normal rate and regular rhythm. Heart sounds: No murmur heard. Pulmonary: Effort: Pulmonary effort is normal. No respiratory distress. Breath sounds: Normal breath sounds. Abdominal: General: Abdomen is flat. Palpations: Abdomen is soft. Tenderness: There is no abdominal tenderness. There is left CVA tenderness. Musculoskeletal: General: No swelling. Skin: General: Skin is warm and dry. Neurological: Mental Status: She is alert and oriented to person, place, and time. Psychiatric: Mood and Affect: Mood normal. Behavior: Behavior normal. DIAGNOSTIC RESULTS EKG (Per Emergency Physician): RADIOLOGY (Per EmergencyPhysician): Interpretation per the Radiologist below, if available at the time of this note: @EDRISRSLT@ : Labs Reviewed COMPREHENSIVE METABOLIC PANEL - Abnormal [...] 3.0 Basophils Relative 0.8 Neutrophils Absolute 5.4 Lymphocytes Absolute 1.1 Monocytes Absolute 0.5 Eosinophils Absolute 0.2 Basophils Absolute 0.1 COMPLETE URINALYSIS - Abnormal Color, Urine Dark Yellow (*) Clarity, Urine Turbid (*) pH, Urine 7.5 Leukocytes, Urine 500 (*) Nitrite, Urine Positive (*) Protein, Urine 30 (*) Glucose, Urine Normal Bilirubin, Urine Negative Ketones, Urine Negative Urobilinogen, Urine Normal Blood, Urine >1.0 (*) RBC, Urine 11-25 (*) WBC, Urine 51-100 (*) Squamous Epithelial, Urine 3-5 Bacteria, Urine Many (*) Mucus, Urine Few WBC Clumps, Urine Few (*) SPECIFIC GRAVITY OF URINE (NUMERIC) 1.013 LACTIC ACID, SEPSIS WITH REFLEX IF ELEVATED - Normal LACTIC ACID 0.9 BLOOD CULTURE BLOOD CULTURE URINE CULTURE COMPLETE URINALYSIS WITH REFLEX TO CULTURE Narrative: The following orders were created for panel order Urinalysis complete with reflex to Culture. Procedure Abnormality Status --------- ------ Complete Urinalysis[[id number]] Abnormal Final result Please view results for these tests on the individual orders. All other labs were within normal range or not returned as of this dictation. EMERGENCY DEPARTMENT COURSE and DIFFERENTIALDIAGNOSIS/MDM: Vitals: Vitals: 02/11/02 203107/17/222031 BP: (!) 150/80 Pulse: 88 Resp: 18 Temp: 37.8 C (100.1 F) TempSrc: Temporal SpO2: 96% Weight: 73 kg (161 lb) Height: 1.626 m (5' 4) Medications cefTRIAXone (Rocephin) 1,000 mg in sodium chloride 0.9 % 50 mL IVPB Mini-Bag Plus (1,000 mg IntraVENous New Bag 07/17/222220) acetaminophen (Tylenol) tablet 1,000 mg (1,000 mg Oral Given 07/17/222220) Medical Decision Making Problems Addressed: Calculus of ureter: complicated acute illness or injury Ureteral stent present: complicated acute illness or injury Urinary tract infection without hematuria, site unspecified: chronic illness or injury Amount and/or Complexity of Data Reviewed Labs: ordered. Radiology: ordered. ECG/medicine tests: ordered. Risk OTC drugs. Patient presents with a 2-month history of problems with kidney stones. She has had lithotripsy andshe has a stent in both ureters. Today she developed nausea without vomiting and noticed a low-grade fever at home. She states she has been feeling increasing pain on the left flank area. Differential diagnosis includes hydronephrosis, UTI, pyelonephritis, kidney stone, sepsis, gastritis, viral illness. Laboratory and imaging studies CBC shows a white count of 7.3. Hemoglobin 12.8. Basic metabolic profile with hepatic function studies show a glucose of 108. And sodium 139. Normal LFTs and kidney function are noted. Lactic acid is at 0.9. Routine urinalysis shows urine to be turbid with positive nitrites and 500 leukocytes. She has 51-100 white cells and many bacteria. Urine was sent for culture and blood cultures were also sent to the lab. The patient was started on IV Rocephin 1 g once. She received Tylenol 1 g here in the emergency department for fever. I did discuss this case with Silvana of the [facility] and I will [facility] Peders[facility]. The patient and family are agreeable with admission. Chronic conditions impacting kidney stone and recurrent UTI. Social determinants affecting care: Patient is a non-smoker and does not drink alcohol. CONSULTS: None PROCEDURES: Unless otherwise noted below, none Procedures Patients symptoms are consistent with sepsis, severe sepsis, or septic shock (If yes use .sepsiscoremeasure): No FINAL IMPRESSION 1. Urinary tract infection without hematuria, site unspecified 2. Ureteral stent present 3. Calculus of ureter DISPOSITION/PLAN DISPOSITION Observation 07/17/2022 10:27:10 PM PATIENT REFERRED TO: No follow-up provider specified. DISCHARGE MEDICATIONS: New Prescriptions No medications on file @[facility]([id number]:LAST:1)@ (Please note: Portions of this note were completed with a voice recognition program. Efforts were made to edit thedictations but occasionally words and phrases are mis-transcribed.) Form [id number] CARLOS MCKEON (electronically signed) Emergency Medicine Provider CARLOS Mckeon 07/17/222229 [facility] [id number] Miscellaneous Notes* Perioperative Nursing Note - Fatimah Sprague RN - 07/06/2022 2:57 PM EST Homegoing instructions given to pt and son verbally and written. Both verbalize understanding,no questions. * Perioperative Nursing Note - Fatimah Sprague RN - 07/06/2022 2:50 PM EST Pt dressed with little assist. Tolerated movement-denies any dizziness,pain,nausea. Pt states readyto go home. * Perioperative Nursing Note - Fatimah Sprague RN - 07/06/2022 2:40 PM EST Pt up to br with standby assist-denies any dizziness,pain,nausea. Voided without diff. * Perioperative Nursing Note - Fatimah Sprague RN - 07/06/2022 2:12 PM EST Pt sitting up drinking fluids,talking. 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 Pt responds to name,resp even and unlabored. Simple mask removed upon arrival. Denies any pain. IV infusing without diff-site without redness or edema. Belongings with pt. * Op Note - Julianne Joya DO - 07/06/2022 12:50 PM EST UROLOGY OPERATIVE REPORT PATIENT NAME: Yash Francois DATE OF : 1945 TODAY'S DATE: 07/06/2022 PreOp Dx: Left renal calculus PostOp Dx: Same Operation: Cystoscopy Left ureteral stent insertion Left extracorporeal shockwave lithotripsy Surgeon: Julianne Joya DO Barrel Inspector Tight: none Anesthesia: general EBL: none Implants: 6 fr x 24cm JJ left ureteral stent Drains: none Valdez: none Specimens: none Complications: none apparent Condition: stable to PACU Indication for Procedure: Yash Francois is a 76 y.o. female who presents with left renal stone. After having a discussion on treatment options, risks and benefits, the patient wishes to proceed forward with surgical intervention I discussed the procedure of EXTRACORPOREAL SHOCKWAVE LITHOTRIPSY (ESWL). I discussed the risks, benefits and alternatives to this. I discussed the possible complications which could include but are not limited to bleeding/hematoma (including need for blood transfusion +/- embolization , infection,pain, failure of stone to fragment, ureteral obstruction, and need for additional procedure(s). She understands this and wishes to proceed with LEFT ESWL. Description of Procedure: Patient was brought to the operating room. A thorough time out was performed and everyone present was in agreement. Patient was placed on OR table. Anesthesia and lines were maintained by the anesthesia team. Patient was placed in the supine position and administered preoperative Ancef. STENT PLACEMENT Prior to the procedure, the patient was placed in the dorsal lithotomy position. Pressure points were padded. A 21fr cystourethroscope was advanced into the bladder. Under flouroscopic visualization,retrograde pyelograms were obtained. A glide wire was advanced up the left side. A sensor wire was advanced to the level of the kidney. A 6fr X 24cmJJ was advanced over the wire through the cystoscope under fluoroscopic visualization. Once in position the wire was removed. A good curl was noted in the kidney and the bladder. Using flouroscopic visualization, the calculus was able to be visualized. The focal point of the lithotripter was positioned over the stone in a three dimensional coordinate plane. A total of 2500 shocks were delivered at 24 kVolts. A pause of three minutes was taken after the first 300 shocks to minimized renal trauma. The first 300 shocks were delivered at a rate of 60 shocks per minute. The remaining 2200 shocks were delievered at a rate of 90/ minute The more medial stone was targeted There was fragmentation of the medial stone seen at the termination of the procedure Patient was awakened from anesthesia and transferred to the recovery room in stable condition Plan: DC home with pain medications today KUB in 3 weeks Follow up with me after documented in this [facility]01-25-2023 Note* Perioperative Nursing Note - Fatimah Sprague RN - 07/06/2022 2:57 PM EST Homegoing instructions given to pt and son verbally and written. Both verbalize understanding,no questions. [facility] [id number] Note* Perioperative Nursing Note - Fatimah Sprague RN - 07/06/2022 2:57 PM EST Homegoing instructions given to pt and son verbally and written. Both verbalize understanding,no questions. [facility] [id number] Note* Perioperative Nursing Note - Fatimah Sprague RN - 07/06/2022 2:50 PM EST Pt dressed with little assist. Tolerated movement-denies any dizziness,pain,nausea. Pt states readyto go home. [address]25-2023 Note* Perioperative Nursing Note - Fatimah Sprague RN - 07/06/2022 2:50 PM EST Pt dressed with little assist. Tolerated movement-denies any dizziness,pain,nausea. Pt states readyto go home. [address]25-2023 Note* Perioperative Nursing Note - Fatimah Sprague RN - 07/06/2022 2:40 PM EST Pt up to br with standby assist-denies any dizziness,pain,nausea. Voided without diff. [address]25-2023 Note* Perioperative Nursing Note - Fatimah Sprague RN - 07/06/2022 2:40 PM EST Pt up to br with standby assist-denies any dizziness,pain,nausea. Voided without diff. [facility]01-25-2023 Note* Perioperative Nursing Note - Fatimah Sprague RN - 07/06/2022 2:12 PM EST Pt sitting up drinking fluids,talking. [address]25-2023 Note* Perioperative Nursing Note - Fatimah Sprague RN - 07/06/2022 2:12 PM EST Pt sitting up drinking fluids,talking. [id number] Note* Perioperative Nursing Note - Fatimah Sprague RN - 07/06/2022 1:49 PM EST Pt to PACU via cart with ELECTRONIC GAMING DEVICE SUPERVISOR. Pt responds to name,resp even and unlabored. Simple mask removed upon arrival. Denies any pain. IV infusing without diff-site without redness or edema. Belongings with pt. [facility] [id number] Note* Perioperative Nursing Note - Fatimah Sprague RN - 07/06/2022 1:49 PM EST Pt to PACU via cart with ELECTRONIC GAMING DEVICE SUPERVISOR. Pt responds to name,resp even and unlabored. Simple mask removed upon arrival. Denies any pain. IV infusing without diff-site without redness or edema. Belongings with pt. [facility] [id number] Hospital Discharge instructions* Discharge Instructions* Julianne Joya DO - 07/06/2022 1:15 PM EST Images from the original note were not included. Extracorporeal Shock Wave Lithotripsy (ESWL) These are general instructions for you to follow after your surgery. Your doctor or a member of hisor her staff will outline any additional or special instructions that pertain to you. What is an ESWL? A ESWL is a procedure that uses sound waves from outside the body to break up stones in the kidney.The patient is placed on a special table and x-ray is used to focus waterborne shock waves through a localized area of the body onto the kidney stones. The stones are broken up into small pieces, which can then pass through urination. Some patient may require a ureteral stent after the procedure. Occasionally, the patient may require a second procedure to remove small stone fragments from the ureter. The success of an ESWL depends on the size and location of the stone, and also the hardness of the stone. The patient s height and weight should also be considered before performing this surgery. How long does surgery take? Surgery will take 1-2 hours to complete. Will I have to stay in the hospital? No. This is an outpatient procedure, so you should be able to go home the same day that the procedure is performed. Are there risks with an ESWL procedure? There are risks with any surgical procedure. Risks of ESWL in particular include infection, bleeding, and difficulty urinating. Steinstrasse can occur when several stones fragments line up in the ureter and block the flow of urine. General anesthesia also hasthe risk of breathing problems, heart attack and stroke in patients who are high risk. It is also possible that the stone may not break up all of the way and additional procedures may berequired. Before Surgery: - A packet of information will be sent to you. It contains helpful information, details about how to prepare for surgery, and where to arrive on the day of surgery. Maps and local hotel information are sent to persons from out of town. If you have questions or have not received this information, please call our office at . - All patients having surgery will need a physical completed to clear them medically for surgery. Pre-operative testing is completed approx. 1-2 weeks before your planned surgery. These tests will bedone either at your pre- operative day at [facility], [facility], or with your regular doctor. - Some patients may require additional testing such as a stress test or cardiac clearance. - At the time of your pre-operative visit the following tests may be completed: Blood work, an EKG,and/ or a Chest X-ray - The day before your surgery you will need to call the surgical scheduling office to confirm your arrival time. - Do NOT eat or drink anything after midnight the night before your surgery. Medications: - Your information packet will contain a list of medications that need to be stopped before surgery. - Do not take Aspirin, Plavix, or brilinta for 10 days prior to surgery. - Do not take Ibuprofen/Motrin/Advil/Aleve/Naproxen for 2 days before surgery - Stop taking Eliquis, xarelto, Coumadin, and pradaxa 3 days before surgery - Stop taking all herbal remedies 2 weeks before your surgery. - Please make certain that we know if you take medication that affected bleeding or is a blood thinner. Examples of these include Coumadin, Warfarin or Plavix. A safe plan will need to be made about how and when you take this medication near the time of your surgery. The Day of Surgery - Please report to the designated area at your confirmed arrival time. - Before you are taken to the operating room, you will change into a gown and have an IV started. - An anesthesiologist will come speak with you about the surgery and answer any questions that you may have. - Your family may stay with you in the pre-op area until you are taken to the operating room. Home Going Instructions: Activity: You are encouraged to walk every day, increasing the distance each day. You may go up anddown steps, but please rest when you are tired. - Do NOT drive for 2-3 weeks after surgery or until you are not taking pain medications. You may ride in a car or plane. Be sure to get up and walk every 1- 2 hours when traveling long distances. - Avoid strenuous activity for 2-4 weeks after surgery (running, jumping, lifting more than 20 lbs.) Diet and Fluid Intake: Eating a well balanced diet is important. If you were on a specific diet before your surgery, you should return to that diet. Otherwise, there are no diet restrictions after surgery. Do NOT drink alcoholic beverages while taking pain medications. Drink at least 8 glasses of fluid per day, preferably water. Bowel Management: Constipation sometimes occurs after surgery, especially when taking pain medication. Eating a well-balanced diet and maintaining a good fluid intake are often all that is necessary to return to you pre-surgical bowel regimen. It is important not to strain excessively when having a bowel movement for the first several weeks following your surgery. A stool softener such as Colace may be helpful. You can purchase stool softeners without a prescription at your local drug store. If a stool softener is not enough to relieve your constipation, you may try taking Milk of Magnesia. You may use over the counter medicine, such a Gas-X, if you experience gas pains after surgery. Ureteral Stent: Most people experience some discomfort with a stent in place. Common symptoms include back pain, urinary frequency and urgency. You may see some blood off and on in your urine, especially after you are active. While these symptoms are common with a stent, if you are having a lot of pain, please call our office to discuss your symptoms. Showering: You may shower when you get home from the hospital. Please avoid swimming, hot tubs and baths for 2-3 weeks after your procedure. Pain Medications: Your doctor will prescribe the appropriate pain medication for you. Take these pills only as directed and only if you need them. If you are experiencing mild discomfort, you may take Tylenol or Ibuprofen. NEVER mix alcohol with prescription pain medications. Pain medication may make you drowsy. Do not take pain medication when doing any activity that requires coordination, such as driving. Infection: Report the following warning signs of infection to your doctor immediately: A temperature of 100.4 degrees or greater -- proceed to Emergency room immediately Unable to urinate. Sudden onset of increased pain or tenderness Increased amount of blood in the urine, or passing large blood clots Miscellaneous It is normal for you to have minor discomfort after your surgery. However, if there are any significant changes in your condition--such as shortness of breath, difficulty breathing, or pain or unevenswelling in your legs--please go to the Emergency Room. Return to Work: If you work in an office and are not lifting or doing strenuous activity, you may return to work when comfortable. If your work involves strenuous activity, you may need more time before returning to work. If necessary, our office can provide a letter stating the date that you may return to work. Follow-up Appointments Follow-up appointments will be scheduled by our office. If you have any questions, please call . Ureteral Stent Placement A ureteral stent may be placed for to alleviate swelling around your kidney caused by a blockage. Before Surgery: - A packet of information will be sent to you. It contains helpful information, details about how to prepare for surgery, and where to arrive on the day of surgery. Maps and local hotel information are sent to persons from out of town. If you have questions or have not received this information, please call our office at . - All patients having surgery will need a physical completed to clear them medically for surgery. Pre-operative testing is completed approx. 1-2 weeks before your planned surgery. These tests will bedone either at your pre- operative day at [facility], [facility], or with your regular doctor. - Some patients may require additional testing such as a stress test or cardiac clearance. - At the time of your pre-operative visit the following tests may be completed: Blood work, an EKG,and/ or a Chest X-ray - The day before your surgery you will need to call the surgical scheduling office to confirm your arrival time. - NO FOOD (including candy, mints or gum), milk or milk products after midnight the night before surgery. - We encourage you to drink clear fluids up to 2 hours before your surgery including water, pulp-free juice (no orange juice), soda, clear tea, black coffee (no creamer or coffee). Medications: - Your information packet will contain a list of medications that need to be stopped before surgery. - Do not take Aspirin, Motrin or Ibuprofen for 2 weeks before surgery. - Stop taking all herbal remedies 2 weeks before your surgery. - Please make certain that we know if you take medication that affected bleeding or is a blood thinner. Examples of these include Coumadin, Warfarin or Plavix. A safe plan will need to be made about how and when you take this medication near the time of your surgery. The Day of Surgery - Please report to the designated area at your confirmed arrival time. - Before you are taken to the operating room, you will change into a gown and have an IV started. - An anesthesiologist will come speak with you about the surgery and answer any questions that you may have. - Your family may stay with you in the pre-op area until you are taken to the operating room. Home Going Instructions: Ureteral Stent: Most people experience some discomfort with a stent in place. Common symptoms include back pain, urinary frequency and urgency. You may see some blood off and on in your urine, especially after you are active. While these symptoms are common with a stent, if you are having a lot of pain, please call our office to discuss your symptoms. Infection: Report the following warning signs of infection to your doctor immediately: A temperature of 101 degrees or greater Unable to urinate. Sudden onset of increased pain or tenderness Increased amount of blood in the urine, or passing large blood clots Miscellaneous It is normal for you to have minor discomfort after your surgery. However, if there are any significant changes in your condition--such as shortness of breath, difficulty breathing, or pain or unevenswelling in your legs--please go to the Emergency Room. Return to Work: If you work in an office and are not lifting or doing strenuous activity, you may return to work when comfortable. If your work involves strenuous activity, you may need more time before returning to work. If necessary, our office can provide a letter stating the date that you may return to work. Follow-up Appointments The stent may stay in place for up to 4-6 months and may be removed after this time period or be exchanged in surgery. Your doctor will decide if and when this need to be performed. Follow-up appointments will be scheduled by our office. If you have any questions, please call . * Attachments The following attachments cannot be sent through Care Everywhere. * Moderate Sedation in Adults Discharge Instructions (Cameroonian) documented in this [facility]01-25-2023 Note* Op Note - Julianne Joya DO - 07/06/2022 12:50 PM EST UROLOGY OPERATIVE REPORT PATIENT NAME: Yash Francois DATE OF : 1945 TODAY'S DATE: 07/06/2022 PreOp Dx: Left renal calculus PostOp Dx: Same Operation: Cystoscopy Left ureteral stent insertion Left extracorporeal shockwave lithotripsy Surgeon: Julianne Joya DO Barrel Inspector Tight: none Anesthesia: general EBL: none Implants: 6 fr x 24cm JJ left ureteral stent Drains: none Valdez: none Specimens: none Complications: none apparent Condition: stable to PACU Indication for Procedure: Yash Francois is a 76 y.o. female who presents with left renal stone. After having a discussion on treatment options, risks and benefits, the patient wishes to proceed forward with surgical intervention I discussed the procedure of EXTRACORPOREAL SHOCKWAVE LITHOTRIPSY (ESWL). I discussed the risks, benefits and alternatives to this. I discussed the possible complications which could include but are not limited to bleeding/hematoma (including need for blood transfusion +/- embolization , infection,pain, failure of stone to fragment, ureteral obstruction, and need for additional procedure(s). She understands this and wishes to proceed with LEFT ESWL. Description of Procedure: Patient was brought to the operating room. A thorough time out was performed and everyone present was in agreement. Patient was placed on OR table. Anesthesia and lines were maintained by the anesthesia team. Patient was placed in the supine position and administered preoperative Ancef. STENT PLACEMENT Prior to the procedure, the patient was placed in the dorsal lithotomy position. Pressure points were padded. A 21fr cystourethroscope was advanced into the bladder. Under flouroscopic visualization,retrograde pyelograms were obtained. A glide wire was advanced up the left side. A sensor wire was advanced to the level of the kidney. A 6fr X 24cmJJ was advanced over the wire through the cystoscope under fluoroscopic visualization. Once in position the wire was removed. A good curl was noted in the kidney and the bladder. Using flouroscopic visualization, the calculus was able to be visualized. The focal point of the lithotripter was positioned over the stone in a three dimensional coordinate plane. A total of 2500 shocks were delivered at 24 kVolts. A pause of three minutes was taken after the first 300 shocks to minimized renal trauma. The first 300 shocks were delivered at a rate of 60 shocks per minute. The remaining 2200 shocks were delievered at a rate of 90/ minute The more medial stone was targeted There was fragmentation of the medial stone seen at the termination of the procedure Patient was awakened from anesthesia and transferred to the recovery room in stable condition Plan: DC home with pain medications today KUB in 3 weeks [facility] [id number] Note* Op Note - Julianne Joya DO - 07/06/2022 12:50 PM EST UROLOGY OPERATIVE REPORT PATIENT NAME: Yash Francois DATE OF : 1945 TODAY'S DATE: 07/06/2022 PreOp Dx: Left renal calculus PostOp Dx: Same Operation: Cystoscopy Left ureteral stent insertion Left extracorporeal shockwave lithotripsy Surgeon: Julianne Joya DO Barrel Inspector Tight: none Anesthesia: general EBL: none Implants: 6 fr x 24cm JJ left ureteral stent Drains: none Valdez: none Specimens: none Complications: none apparent Condition: stable to PACU Indication for Procedure: Yash Francois is a 76 y.o. female who presents with left renal stone. After having a discussion on treatment options, risks and benefits, the patient wishes to proceed forward with surgical intervention I discussed the procedure of EXTRACORPOREAL SHOCKWAVE LITHOTRIPSY (ESWL). I discussed the risks, benefits and alternatives to this. I discussed the possible complications which could include but are not limited to bleeding/hematoma (including need for blood transfusion +/- embolization , infection,pain, failure of stone to fragment, ureteral obstruction, and need for additional procedure(s). She understands this and wishes to proceed with LEFT ESWL. Description of Procedure: Patient was brought to the operating room. A thorough time out was performed and everyone present was in agreement. Patient was placed on OR table. Anesthesia and lines were maintained by the anesthesia team. Patient was placed in the supine position and administered preoperative Ancef. STENT PLACEMENT Prior to the procedure, the patient was placed in the dorsal lithotomy position. Pressure points were padded. A 21fr cystourethroscope was advanced into the bladder. Under flouroscopic visualization,retrograde pyelograms were obtained. A glide wire was advanced up the left side. A sensor wire was advanced to the level of the kidney. A 6fr X 24cmJJ was advanced over the wire through the cystoscope under fluoroscopic visualization. Once in position the wire was removed. A good curl was noted in the kidney and the bladder. Using flouroscopic visualization, the calculus was able to be visualized. The focal point of the lithotripter was positioned over the stone in a three dimensional coordinate plane. A total of 2500 shocks were delivered at 24 kVolts. A pause of three minutes was taken after the first 300 shocks to minimized renal trauma. The first 300 shocks were delivered at a rate of 60 shocks per minute. The remaining 2200 shocks were delievered at a rate of 90/ minute The more medial stone was targeted There was fragmentation of the medial stone seen at the termination of the procedure Patient was awakened from anesthesia and transferred to the recovery room in stable condition Plan: DC home with pain medications today KUB in 3 weeks Follow up with me after [facility] [id number] Telephone encounter Note* Telephone Encounter - Aroldo Patel RN - 06/21/2022 2:35 PM EST See other note [facility] [id number] Miscellaneous Notes* Telephone Encounter - Aroldo Patel RN - 06/21/2022 2:35 PM EST See other note * Telephone Encounter - Ariane Castro - 06/14/2022 4:21 PM EST Name of caller: Yash Contact phone number: [phone] Relationship to Patient: patient Provider: Dr. Petar Joya Practice: [facility] Chief Complaint/Reason for Call: The patient states she missed a call from the office. No notes were available in Epic. Please contact the patient to discuss the reason for the call. Thank you Best time of day caller can be reached: Any Patient advised that office/PCP has 24-48 business hours to return their call: No documented in this [facility]01-10-2023 Telephone encounter Note* Telephone Encounter - Giuliana Toribio - 06/21/2022 1:16 PM EST Attempted to contact patient. Left VM. [facility] [id number] Miscellaneous Notes* Telephone Encounter - Giuliana Toribio - 06/21/2022 1:16 PM EST Attempted to contact patient. Left VM. * Telephone Encounter - Renetta Rosa RN - 06/21/2022 10:18 AM EST Please advise on surgery scheduling. Thanks! * Telephone Encounter - Kirsten Galeano - 06/17/2022 1:26 PM EST Name of caller: Yash Contact phone number: [phone] Relationship to Patient: patient Provider: Cortney Practice: Urology Chief Complaint/Reason for Call: Patient called stating she missed a call from the office today. I don't see anything in the chart. The patient would like you to call her back. Please advise Best time of day caller can be reached: any Patient advised that office/PCP has 24-48 business hours to return their call: No documented in this [facility]01-10-2023 Telephone encounter Note* Telephone Encounter - Renetta Rosa RN - 06/21/2022 10:18 AM EST Please advise on surgery scheduling. Thanks! [facility] [id number] Telephone encounter Note* Telephone Encounter - Kirsten Galeano - 06/17/2022 1:26 PM EST Name of caller: Yash Contact phone number: [phone] Relationship to Patient: patient Provider: Cortney Practice: Urology Chief Complaint/Reason for Call: Patient called stating she missed a call from the office today. I don't see anything in the chart. The patient would like you to call her back. Please advise Best time of day caller can be reached: any Patient advised that office/PCP has 24-48 business hours to return their call: No [facility] HospitalXqmxql76-09-5907 Telephone encounter Note* Telephone Encounter - Ariane Castro - 06/14/2022 4:21 PM EST Name of caller: Yash Contact phone number: [phone] Relationship to Patient: patient Provider: Dr. Petar Joya Practice: [facility] [place] [facility] Chief Complaint/Reason for Call: The patient states she missed a call from the office. No notes were available in Epic. Please contact the patient to discuss the reason for the call. Thank you Best time of day caller can be reached: Any Patient advised that office/PCP has 24-48 business hours to return their call: No [facility] [id number] Miscellaneous Notes* Telephone Encounter - Ariane Castro - 06/14/2022 4:21 PM EST Name of caller: Yash Contact phone number: [phone] Relationship to Patient: patient Provider: Dr. Petar Joya Practice: [facility] [place] [facility] Chief Complaint/Reason for Call: The patient states she missed a call from the office. No notes were available in Epic. Please contact the patient to discuss the reason for the call. Thank you Best time of day caller can be reached: Any Patient advised that office/PCP has 24-48 business hours to return their call: No documented in this [facility]12-30-2022 Telephone encounter Note* Telephone Encounter - Giuliana Toribio - 06/10/2022 9:12 AM EST Please schedule next available [facility] [id number] Miscellaneous Notes* Telephone Encounter - Giuliana Toribio - 06/10/2022 9:12 AM EST Please schedule next available * Telephone Encounter - Julianne Joya DO - 06/07/2022 1:09 PM EST OR Request for [facility] PROCEDURE: Cystoscopy left retrograde pyelogram, left extracorporeal [...] yes MEDICAL CLEARANCE: Yes documented in this [facility]12-27-2022 Telephone encounter Note* Telephone Encounter - Julianne Joya DO - 06/07/2022 1:09 PM EST OR Request for Cortney PROCEDURE: Cystoscopy left retrograde pyelogram, left extracorporeal shockwave lithotripsy DIAGNOSIS: Left renal calculus FACILITY: Any DETAILS: OUTPT ANESTHESIA: GENERAL TIME REQUESTED: 90 minutes DATE REQUESTED: ROUTINE SURGERY ORDERS: will be Placed by Petar Joya POST OP FOLLOW UP: Office cystoscopy with stent removal 3 to 4 weeks postop REP REQUESTED: Yes - [facility] SPECIAL NEEDS: ESWL PAT: yes MEDICAL CLEARANCE: Yes [facility] [id number] Telephone encounter Note* Telephone Encounter - Serina Isbell - 05/26/2022 1:56 PM EST Pt already scheduled 06-07-22 [facility] [id number] Miscellaneous Notes* Telephone Encounter - Serina Isbell - 05/26/2022 1:56 PM EST Pt already scheduled 06-07-22 * Telephone Encounter - Anabel Dia - 05/17/2022 12:18 PM EST Name of caller: Carmen Contact phone number: [phone] Relationship to Patient: Daughter Provider: Dr. Villa Practice: Urology Chief Complaint/Reason for Call: Carmen called in stating that the patient was referred from the ED to set up an appt for stone. Please advise. Best time of day caller can be reached: Any Patient advised that office/PCP has 24-48 business hours to return their call: No documented in this [facility]12-06-2022 Telephone encounter Note* Telephone Encounter - Anabel Dia - 05/17/2022 12:18 PM EST Name of caller: Carmen Contact phone number: [phone] Relationship to Patient: Daughter Provider: Dr. Villa Practice: Urology Chief Complaint/Reason for Call: Carmen called in stating that the patient was referred from the ED to set up an appt for stone. Please advise. Best time of day caller can be reached: Any Patient advised that office/PCP has 24-48 business hours to return their call: No [facility] HospitalDischar summary Author Suzanne Littlejohn [facility] August 10, 2023 2:00pm Note Date/Time August 10, 2023 1:58pm [facility] Medical Records Department [address] [place] [id number] Instructions for Home/Discharge Instructions 08/10/23 1357 MR#: [id number] Acct: [id number] Name: YASH FRANCOIS NOVEMBER Rep #:[id number] : 1945 77 From: Suzanne Parikh PCP: Care Physician,No Primary Status :[facility] [place] Discharge Instructions Diet Discharge Diet: No restrictions Activity Discharge Activity: Return to Normal Activity Dressing / Incision Call your doctor if you observe: Fever of 101 or Higher and Inability to urinate Follow Up Care Please Follow Up With: Suzanne Littlejohn MD When: the office will call to make follow up arrangements Test Results: Test results from this visit will be discussed in further detail at your follow- up appointment, if applicable. Discharge Plan Admission Attending Provider: Suzanne Littlejohn Primary Care Provider: Care Physician,No Primary Discharge Orders/Prescriptions Prescriptions: New oxycodone-acetaminophen [Percocet] 5-325 mg tablet 1 tab PO Q8H PRN (Reason: pain) 3 Days Qty: 10 0RF cephalexin [cephalexin] 500 mg capsule 500 mg PO Q12 3 Days Qty: 6 0RF phenazopyridine [phenazopyridine] 100 mg tablet 100 mg PO TID Qty: 30 0RF Continued phenazopyridine [Pyridium] 200 mg tablet 200 mg PO BID omega 3-yeh-dje-fish oil [Fish Oil] 300-1,000 mg capsule,delayed release(DR/EC) 1 cap PO DAILY cholecalciferol (vitamin D3) [Vitamin D3] 50 mcg (2,000 unit) tablet 50 mcg PO DAILY red clover 1,000 mg capsule 1,000 mg PO DAILY zinc gluconate 50 mg tablet 50 mg PO DAILY C Complex 1,000 mg tablet extended release 1,000 mg PO DAILY vitamin E 200 unit capsule 180 mg PO DAILY magnesium 250 mg tablet 250 mg PO DAILY Complex B-100 Tablet Extended Release 1 tab PO DAILY Referrals / Follow Up: Care Physician,No Primary [Primary Care Provider] - Disposition Disposition (needs filled in before D/C Order can be placed): Home, Self Care 08/10/23 1400<Electronically signed by Suzanne Littlejohn MD>Suzanne Littlejohn MD CC: No Primary Care Physician ~ Signed [facility] Work Phone: Evaluation note* Diagnosis LV dysfunction- Primary Left heart failure Palpitations Paroxysmal atrial fibrillation (CMS/HCC) (HCC) Atrial fibrillation documented in this encounter [facility]* Diagnosis Hemoptysis documented in this encounter [facility]* Diagnosis Hemoptysis- Primary Colon cancer screening Special screening for malignant neoplasms, colon Osteoporosis, unspecified osteoporosis type, unspecified pathological fracture presence Hemoptysis [facility]* Diagnosis Hemoptysis- Primary [facility]* Diagnosis Diastolic heart failure, unspecified HF chronicity (HCC)- Primary Kidney stone on left side documented [facility]* Diagnosis Multiple lung nodules- Primary Other diseases of lung, not elsewhere classified Liver lesion Other specified disorders of liver Acute bilateral low back pain without sciatica documented in this encounter [facility]* Diagnosis Multiple lung nodules- Primary Other diseases of lung, not elsewhere classified Liver lesion Other specified disorders of liver Acute bilateral low back pain without sciatica documented in this encounter [facility]* Diagnosis Multiple lung nodules- Primary Other diseases of lung, not elsewhere classified Benign paroxysmal positional vertigo of right ear Onychomycosis Dermatophytosis of nail documented in this encounter [facility]* Diagnosis Kidney stone on left side documented in this encounter [facility]* Diagnosis Pulmonary nodules- Primary Other diseases of lung, not elsewhere classified History of hemoptysis documented in this encounter [facility]* Diagnosis Onychomycosis- Primary Dermatophytosis of nail documented in this encounter [facility]* Diagnosis Onychomycosis- Primary Dermatophytosis of nail documented in this encounter [facility]* Diagnosis Onychomycosis- Primary Dermatophytosis of nail Adverse effect of terbinafine documented in this encounter [facility]* Diagnosis Onychomycosis- Primary Dermatophytosis of nail Therapeutic drug monitoring Encounter for therapeutic drug monitoring documented in this encounter [facility] HospitalEvaluation noteNo assessment information availableWCleveland Clinic Foundation Work Phone: Evaluation note* Diagnosis Chronic cough- Primary Cough documented [facility]* Diagnosis Onychomycosis Dermatophytosis of nail documented in this encounter [facility]* Diagnosis Onychomycosis Dermatophytosis of nail documented in this encounter [facility]* Diagnosis Kidney stone on left side- Primary Dysuria Hydronephrosis with renal and ureteral calculous obstruction documented in this encounter [facility]* Diagnosis Kidney stone on left side- Primary Dysuria Hydronephrosis with renal and ureteral calculous obstruction documented in this encounter [facility]* Diagnosis Medication side effect- Primary documented in this encounter [facility]* Diagnosis Kidney stone on left side- Primary documented in this encounter [facility]* Diagnosis Urinary tract infection without hematuria, site unspecified Ureteral stent present Calculus of ureter Paroxysmal atrial fibrillation (CMS/HCC) (HCC) Atrial fibrillation PVC (premature ventricular contraction) Other premature beats Kidney stone on left side Urinary tract infection without hematuria, site unspecified Urinary tract infection Urinary tract infection, site not specified Calculus of kidney Calculus of ureter [facility] Diagnosis Encounter for medical examination to establish care- Primary Hearing aid fitting or adjustment Fitting and adjustment of hearing aid History of right mastoidectomy Paroxysmal A-fib (CMS/HCC) (HCC) Diastolic heart failure, unspecified HF chronicity (HCC) Calculus of kidney Calculus of ureter documented in this encounter [facility] note* Diagnosis LV dysfunction- Primary Left heart failure Palpitations Paroxysmal atrial fibrillation (CMS/HCC) (HCC) Atrial fibrillation Calculus of kidney Calculus of ureter documented in this encounter [facility] note* Diagnosis Kidney stone on left side- Primary [facility]* Diagnosis Encounter for medical examination to establish care- Primary Hearing aid fitting or adjustment Fitting and adjustment of hearing aid History of right mastoidectomy Paroxysmal A-fib (CMS/HCC) (HCC) Diastolic heart failure, unspecified HF chronicity (HCC) documented in this encounter [facility] for referral (narrative)* Consultation (Routine) - Pending Review Specialty Diagnoses / Procedures Referred By Nino good Referred To Contact Gastroenterology Diagnoses Encounter for screening for malignant neoplasm of colon Procedures RI OFFICE/OUTPATIENT [facility] 60-74 MINUTES Suly Parker MD [address] [place] [address] Sana Benedict MD [address] [place] [address], [facility] [address] [place] [address] Referral ID Status Reason Start Date Expiration Date Visits Requested Visits Authorized [id number] Pending Review Specialty Services Required 11/16/2022 11/16/2023 1 1 [facility] for referral (narrative)* Consultation (Routine) - Pending Review Specialty Diagnoses / Procedures Referred By Contac t Referred To Contact Pulmonology Diagnoses Hemoptysis Procedures RI OFFICE/OUTPATIENT [facility] 60-74 MINUTES Suly Parker MD [address] [place] [address] Darshan Vickers MD [address] [place] [address] Referral ID Status Reason Start Date Expiration Date Visits Requested Visits Authorized [id number] Pending Review Specialty Services Required 11/30/2022 11/30/2023 1 1 [facility] for referral (narrative)* Consultation (Routine) - Pending Review Specialty Diagnoses / Procedures Referred By Contac t Referred To Contact Pulmonology Diagnoses Multiple lung nodules Procedures RI OFFICE/OUTPATIENT NEW HIGH MDM 60-74 MINUTES Sandro Kerr MD [address] [place] [address] [facility] [address] [place] [address] Referral ID Status Reason Start Date Expiration Date Visits Requested Visits Authorized [id number] Pending Review Specialty Services Required 01/16/2023 01/16/2024 1 1 * Therapy (Routine) - Pending Review Specialty Diagnoses / Procedures Referred By Contac t Referred To Contact Physical Therapy Diagnoses Acute bilateral low back pain without sciatica Procedures RI OFFICE/OUTPATIENT NEW HIGH MDM 60-74 MINUTES Sandro Kerr MD [address] [place] [address] [facility] [address] [facility] [place] [address] [place] [address] Referral ID Status Reason Start Date Expiration Date Visits Requested Visits Authorized [id number] Pending Review Eval and Treat 01/16/2023 07/15/2023 99 99 * Consultation (Routine) - Pending Review Specialty Diagnoses / Procedures Referred By Contac t Referred To Contact Pulmonology Diagnoses Multiple lung nodules Procedures RI OFFICE/OUTPATIENT NEW HIGH MDM 60-74 MINUTES Sandro Kerr MD [address] [place] [address] [facility] [address] [place] [address] Referral ID Status Reason Start Date Expiration Date Visits Requested Visits Authorized [id number] Pending Review Specialty Services Required 01/16/2023 01/16/2024 1 1 [facility] Consultation (Routine) - Pending Review Specialty Diagnoses / Procedures Referred By Contac t Referred To Contact Otolaryngology Diagnoses Hearing aid fitting or adjustment History of right mastoidectomy Procedures RI OFFICE/OUTPATIENT [facility] 60-74 MINUTES Suly Parker MD [address] [place] [address] Tavon Soriano, [address] [address] Referral ID Status Reason Start Date Expiration Date Visits Requested Visits Authorized [id number] Pending Review Specialty Services Required 07/29/2022 07/29/2023 1 1 [facility] referral ([facility]arrative)* Consultation (Routine) - Pending Review Specialty Diagnoses / Procedures Referred By Nino good Referred To Contact Otolaryngology Diagnoses Hearing aid fitting or adjustment History of right mastoidectomy Procedures RI OFFICE/OUTPATIENT [facility] 60-74 MINUTES Suly Parker MD [address] [place] [address] Pineda Puckett MD [address] [place] [address] [address] [place] [address] Referral ID Status Reason Start Date Expiration Date Visits Requested Visits Authorized [id number] Pending Review Specialty Services Required 07/29/2022 07/29/2023 1 1 [facility]Reason for referral (narrative)No reason for referral information availableWCleveland Clinic Foundation Work Phone: Summary Purpose Family History No Family History Records FoundNo Family History Records FoundNo Family History Records FoundNo Family History Records Found Advance Directives No Advanced Directives Records FoundLatest Code Status on File Code Status Date Activated Date Inactivated Comments Full Code 07/17/2022 11:08 PM 07/23/2022 6:42 PM Latest Code Status on File Code Status Date Activated Date Inactivated Comments Full Code 07/17/2022 11:08 PM 07/23/2022 6:42 PM Advance Directive Response Recorded Date/ Time Living Will No May 10, 023 9:16pm Power of Tobacco Stemmer Machine No May 10, 2023 9:16pm Advance Directive Response Recorded Date/ Time Living Will No July 09 8:25am Power of Tobacco Stemmer Machine No July 09, 2023 8:25am Advance Directive Response Recorded Date/ Time Living Will No August 09, 024 11:19am Power of Tobacco Stemmer Machine No August 09, 2023 11:19am Advance Directive Response Recorded Date/ Time Living Will No August 09 12:19pm Power of Tobacco Stemmer Machine No August 09, 2023 12:19pm Latest Code Status on File Code Status Date Activated Date Inactivated Comments Full Code 07/17/2022 11:08 PM Reason for Referral Specialty Diagnoses / Procedures Referred By Nino good Referred To Contact Physical Therapy Diagnoses Benign paroxysmal positional vertigo of right ear Sandro Kerr MD [address] [place] [address] [facility] [address] [facility] [place] [address] [place] [address] Referral ID Status Reason Start Date Expiration Date Visits Requested Visits Authorized [id number] Pending Review Eval and Treat 02/14/2023 08/13/2023 99 99 Specialty Diagnoses / Procedures Referred By Nino good Referred To Contact Pulmonology Diagnoses Multiple lung nodules Procedures RI OFFICE/OUTPATIENT NEW [facility] 60-74 MINUTES Sandro Kerr MD [address] [place] [address] [facility] [address] [place] [address] Referral ID Status Reason Start Date Expiration Date Visits Requested Visits Authorized [id number] Pending Review Specialty Services Required 02/14/2023 02/14/2024 1 1 Referral ID Status Reason Start Date Expiration Date Visits Requested Visits Authorized [id number] Canceled Specialty Services Required 02/14/2023 02/14/2024 1 1 Specialty Diagnoses / Procedures Referred By Contac t Referred To Contact Cardiology Diagnoses LV dysfunction Procedures Transthoracic echocardiogram (TTE) limited with contrast, bubble, strain, and 3D PRN RI ECHO TRANSTHORC R-T 2D W/WO M-MODE REC F-UP/LMTD RI DOP ECHOCARD PULSE WAVE W/SPECTRAL F-UP/LMTD STD RI DOP ECHOCARD COLOR FLOW VELOCITY MAPPING RI 2D TTE W OR W/O FOL W/CON,Aiyana Pandey, DRY CELL TESTER - TIME PIECE REPAIRER [address] [facility], [address] [place] [address] Referral ID Status Reason Start Date Expiration Date Visits Requested Visits Authorized [id number] Pending Review Perform Procedure 08/05/2022 02/01/2023 1 1 Chief Complaint and Reason for Visit Chief Complaint 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/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/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/KAITLYNN/DESHAWN FLANK PAIN Chief Complaint FLANK PAIN Chief Complaint FLANK PAIN FLANK PAIN Chief Complaint FLANK PAIN FLANK PAIN KUB Chief Complaint FLANK PAIN FLANK PAIN KUB ESWL Chief Complaint FLANK PAIN FLANK PAIN KUB ESWL KUB Chief Complaint Admit Date SCREENING August 13, 2024 3:21 pm Chief Complaint Admit Date SCREENING August 13, 2024 3:21 pm XRAY October 03, 2024 11: 16am Chief Complaint Admit Date SCREENING August 13, 2024 3:21 pm XRAY October 03, 2024 11: 16am KUB- KIDNEY STONES October 09, 2024 3:1 9pm LUNG NODULES November 06, 2024 6:15p m Additional Source Comments INFORMATION SOURCE (unrecogn ized section and content) DATE CREATED AUTHOR 04/30/2022 [facility] ([place]) DATE CREATED AUTHOR AUTHOR'S ORGANIZ ATION 07/18/2023 [facility] DATE CREATED AUTHOR AUTHOR'S ORGANIZ ATION 09/08/2023 [facility] DATE CREATED AUTHOR AUTHOR'S ORGANIZ ATION 03/15/2025 [facility] Reason for Visit (unrecogniz ed section and content) Reason Onset Date Comments Med Refill 09/15/2022 Reason Onset Date Comments Release of Information 07/21/2022 Reason Comments Hospital Follow-up Reason Onset Date Comments Surgery Scheduling 06/07/2022 Reason Comments Follow-up Reason Comments Results Reason Onset Date Comments Appointment 02/13/2023 Reason Comments Follow-up Reason Comments New Patient Specialty Diagnoses / Procedures Referred By Contac t Referred To Contact Pulmonology Diagnoses Multiple lung nodules Procedures RI OFFICE/OUTPATIENT [facility] 60-74 MINUTES Sandro Kerr MD [address] [place] [address] [facility] [address] [place] [address] Referral ID Status Reason Start Date Expiration Date Visits Requested Visits Authorized [id number] Pending Review Specialty Services Required 01/16/2023 01/16/2024 1 1 Reason Onset Date Comments Cancelled Appointment 02/12/2023 Pt started a new job and needs to cx and r/s appt for 14.23. Please call to r/s Reason Onset Date Comments Appointment Request 03/08/2023 Pt missed ap pt for 9.14 and would like to r/s [...] follow Surge ry Dr Joya in [place] [facility] approx 2 weeks ago for stones Reason Onset Date Comments Surgery Scheduling 05/30/2023 Insurance Reason Onset Date Comments Medication Problem 05/18/2023 Reason Onset Date Comments Orders 06/09/2023 Reason Onset Date Comments Test Scheduling 09/07/2023 Reason Onset Date Comments Appointment 05/17/2022 Reason Onset Date Comments Missed call from the office 06/14/2022 Reason Onset Date Comments returning a missed call from the office 06/17/19 Specialty Diagnoses / Procedures Referred By Nino good Referred To Contact Diagnoses Calculus of kidney Calculus of kidney [N20.0] Procedures RI LITHOTRIPSY XTRCORP SHOCK WAVE RI CYSTO BLADDER W/URETERAL CATHETERIZATION CYSTOSCOPY, RIGHT RETROGRADE PYELOGRAM, LEFT EXTRACORPORAL SHOCKWAVE LITHOTRYPSY ESWL CYSTOSCOPY AND PYELOGRAM Julianne Joya, DO [address] [facility] [address] [place] [address] [facility] [address] [place] [address] Referral ID Status Reason Start Date Expiration Date Visits Re quested Visits Authorized [id number] 1 1 Reason Onset Date Comments Surgery Scheduling 07/21/2022 Reason Comments Fever Fever chills nausea no vomiting pt has stent in left ureter and is having pain in her back and her stomach Specialty Diagnoses / Procedures Referred By Nino good Referred To Contact Diagnoses Calculus of ureter UTI (urinary tract infection) Urinary tract infection Urinary tract infection without hematuria, site unspecified Ureteral stent present Procedures N20.9YAJ-90-DRCugeispz of ureter N39.8WGT-39-BGDJB (urinary tract infection) N39.0XHH-65-LVHygboas tract infection N39.5NXZ-90-AEDwhvssl tract infection without hematuria, site unspecified Z96.0HGD-99-QNBtgomdjn stent present Piyush Pedersen MD [address] [place] [address] [facility] [address] [place] [address] Referral ID Status Reason Start Date Expiration Date Visits Re quested Visits Authorized [id number] 1 1 Reason Comments New Patient Kidney stone Reason Comments Hospital Follow-up Specialty Diagnoses / Procedures Referred By Nino good Referred To Contact Diagnoses Calculus of kidney Calculus of ureter Calculus of kidney [N20.0] Calculus of ureter [N20.1] Procedures RI CYSTO BLADDER W/URETERAL CATHETERIZATION RI CYSTO W/URETEROSCOPY W/LITHOTRIPSY RI CYSTO W/INSERT URETERAL STENT CYSTOSCOPY AND RETROGRADE PYELOGRAM, LEFT URETEROSCOPY LASER LITHOTRIPSY, LEFT URETERAL STENT CHANGE CYSTOSCOPY WITH URETEROSCOPY AND OR PYELOSCOPY WITH REMOVAL OR MANIPULATION CALCULUS WITH LITHOTRIPSY CYSTOSCOPY WITH INSERTION URETERAL STENT Julianne Joya, DO [address] [facility] [address] [place] [address] [facility] [address] [place] [phone] Referral ID Status Reason Start Date Expiration Date Visits Re quested Visits Authorized [id number] 1 1 Reason Comments Procedure Cystoscopy with sten t removal Care Teams (unrecognized sec tion and content) Acute Care Nurse Practitioner Relationship Specialty Start Date End Date No, Pcp [address] [place] [address] PCP - General 05/16/22 João Villa MD [address] [address] Surgeon Urology 05/17/22 Julianne Joya, DO 95 [facility] [address] [place] [address] Surgeon Urology 06/07/22 Acute Care Nurse Practitioner Relationship Specialty Start Date End Date No, Pcp [address] [place] [address] PCP - General 05/16/22 João Villa MD [address] [address] Surgeon Urology 05/17/22 Julianne Joya, DO [address] [facility] [address] [place] [address] Surgeon Urology 06/07/22 Acute Care Nurse Practitioner Relationship Specialty Start Date End Date No, Pcp [address] [place] [address] PCP - General 05/16/22 João Villa MD 95 [facility] [address] [place] [address] Surgeon Urology 05/17/22 Julianne Joya DO [address] [place] [address] Surgeon Urology 06/07/22 Acute Care Nurse Practitioner Relationship Specialty Start Date End Date No, Pcp [address] [place] [address] PCP - General 05/16/22 João Villa MD [address] [place] [address] Surgeon Urology 05/17/22 Julianne Joya DO [address] [place] [address] Surgeon Urology 06/07/22 Acute Care Nurse Practitioner Relationship Specialty Start Date End Date Suly Parker MD [address] [place] [address] PCP - General 11/16/22 João Villa MD [address] [place] [address] Surgeon Urology 05/17/22 Julianne Joya DO [address] [place] [address] Surgeon Urology 06/07/22 Acute Care Nurse Practitioner Relationship Specialty Start Date End Date [facility] [address] [place] [address] PCP - General 05/16/22 11/15/22 Suly Parker MD [address] [place] [address] PCP - General 11/16/22 João Villa MD [address] [place] [address] Surgeon Urology 05/17/22 Julianne Joya DO [address] [place] [address] Surgeon Urology 06/07/22 Acute Care Nurse Practitioner Relationship Specialty Start Date End Date Suly Parker MD [address] [place] [address] PCP - General 11/16/22 João Villa MD [address] [place] [address] Surgeon Urology 05/17/22 Julianne Joya DO [address] [place] [address] Surgeon Urology 06/07/22 Acute Care Nurse Practitioner Relationship Specialty Start Date End Date Suly Parker MD [address] [facility] [place] [address] PCP - General 11/16/22 João Villa MD [address] [place] [address] Surgeon Urology 05/17/22 Julianne Joya DO [address] [place] [address] Surgeon Urology 06/07/22 Acute Care Nurse Practitioner Relationship Specialty Start Date End Date Suly Parker MD [address] [facility] [place] [address] PCP - General 11/16/22 João Villa MD [address] [place] [address] Surgeon Urology 05/17/22 Julianne Joya DO [address] [place] [address] Surgeon Urology 06/07/22 Acute Care Nurse Practitioner Relationship Specialty Start Date End Date Sandro Kerr MD [address] [place] [address] PCP - General Family Medicine 01/04/23 João Villa MD [address] [place] [address] Surgeon Urology 05/17/22 Julianne Joya DO [address] [place] [address] Surgeon Urology 06/07/22 Acute Care Nurse Practitioner Relationship Specialty Start Date End Date Sandro Kerr MD [address] [place] [address] PCP - General Family Medicine 01/04/23 João Villa MD [address] [place] [address] Surgeon Urology 05/17/22 Julianne Joya DO [address] [facility] [address] [place] [address] Surgeon Urology 06/07/22 Acute Care Nurse Practitioner Relationship Specialty Start Date End Date Sandro Kerr MD [address] [place] [address] PCP - General Family Medicine 01/04/23 João Villa MD [address] [place] [address] Surgeon Urology 05/17/22 Julianne Joya DO [address] [place] [address] Surgeon Urology 06/07/22 Acute Care Nurse Practitioner Relationship Specialty Start Date End Date Sandro Kerr MD [address] [place] [address] PCP - General Family Medicine 01/04/23 João Villa MD [address] [place] [address] Surgeon Urology 05/17/22 Julianne Joya DO [address] [place] [address] Surgeon Urology 06/07/22 Acute Care Nurse Practitioner Relationship Specialty Start Date End Date Sandro Kerr MD [address] [place] [address] PCP - General Family Medicine 01/04/23 João Villa MD [address] [place] [address] Surgeon Urology 05/17/22 Julianne Joya DO [address] [place] [address] Surgeon Urology 06/07/22 Acute Care Nurse Practitioner Relationship Specialty Start Date End Date [facility] [address] [place] [address] PCP - General 05/16/22 11/15/22 Suly Parker MD [address] [place] [address] PCP - General 11/16/22 12/19/22 Jasbir Hackett MD [address] [place] [address] PCP - General Family Medicine 12/20/22 12/20/22 Sonny Schmitz MD [address] [place] [place] [address] [place] [address] PCP - General Family Medicine 12/21/22 01/03/23 Sandro Kerr MD [address] [place] [address] PCP - General Family Medicine 01/04/23 João Villa MD [address] [facility] [address] [place] [address] Surgeon Urology 05/17/22 Julianne Joya DO [address] [facility] [address] [place] [address] Surgeon Urology 06/07/22 Acute Care Nurse Practitioner Relationship Specialty Start Date End Date Sandro Kerr MD [address] [place] [address] PCP - General Family Medicine 01/04/23 João Villa MD [address] [place] [address] Surgeon Urology 05/17/22 Julianne Joya DO [address] [place] [address] Surgeon Urology 06/07/22 Acute Care Nurse Practitioner Relationship Specialty Start Date End Date Sandro Kerr MD [address] [place] [address] PCP - General Family Medicine 01/04/23 João Villa MD [address] [place] [address] Surgeon Urology 05/17/22 Julianne Joya DO [address] [place] [address] Surgeon Urology 06/07/22 Acute Care Nurse Practitioner Relationship Specialty Start Date End Date Sandro Kerr MD [address] [place] [address] PCP - General Family Medicine 01/04/23 João Villa MD [address] [place] [address] Surgeon Urology 05/17/22 Julianne Joya DO [address] [place] [address] Surgeon Urology 06/07/22 Acute Care Nurse Practitioner Relationship Specialty Start Date End Date Sandro Kerr MD [address] [place] [address] PCP - General Family Medicine 01/04/23 João Villa MD [address] [place] [address] Surgeon Urology 05/17/22 Julianne Joya DO [address] [place] [address] Surgeon Urology 06/07/22 Acute Care Nurse Practitioner Relationship Specialty Start Date End Date Sandro Kerr MD [address] [place] [address] PCP - General Family Medicine 01/04/23 João Villa MD [address] [place] [address] Surgeon Urology 05/17/22 Julianne Joya DO [address] [place] [address] Surgeon Urology 06/07/22 Acute Care Nurse Practitioner Relationship Specialty Start Date End Date Sandro Kerr MD [address] [place] [address] PCP - General Family Medicine 01/04/23 João Villa MD [address] [place] [address] Surgeon Urology 05/17/22 Julianne Joya DO [address] [place] [address] Surgeon Urology 06/07/22 Acute Care Nurse Practitioner Relationship Specialty Start Date End Date Sandro Kerr MD [address] [place] [address] PCP - General Family Medicine 01/04/23 João Villa MD [address] [place] [address] Surgeon Urology 05/17/22 Julianne Joya DO [address] [place] [address] Surgeon Urology 06/07/22 Team Status: Active Member Role Status Dates No Primary Care Physician Primary Care Provider Active Team Status: Inactive Member Role Status Dates Julián Keller PA, PA Attending Provider Active Team Status: Inactive Member Role Status Dates Gonzalez Yañez MD Emergency Provider Active No Primary Care Physician Primary Care Provider Active Acute Care Nurse Practitioner Relationship Specialty Start Date End Date Suly Parker MD [address] [place] [address] PCP - General 11/16/22 12/19/22 Jasbir Hackett MD [address] [place] [address] PCP - General Family Medicine 12/20/22 12/20/22 Sonny Schmitz MD [address] [facility] [address] [place] [address] PCP - General Family Medicine 12/21/22 01/03/23 Sandro Kerr MD [address] [place] [address] PCP - General Family Medicine 01/04/23 João Villa MD [address] [address] Surgeon Urology 05/17/22 Julianne Joya DO 95 [facility] [address] [place] [address] Surgeon Urology 06/07/22 Acute Care Nurse Practitioner Relationship Specialty Start Date End Date Sandro Kerr MD [address] [place] [address] PCP - General Family Medicine 01/04/23 João Villa MD [address] [place] [address] Surgeon Urology 05/17/22 Julianne Joya DO [address] [place] [address] Surgeon Urology 06/07/22 Acute Care Nurse Practitioner Relationship Specialty Start Date End Date Sandro Kerr MD [address] [place] [address] PCP - General Family Medicine 01/04/23 João Villa MD [address] [place] [address] Surgeon Urology 05/17/22 Julianne Joya DO [address] [place] [address] Surgeon Urology 06/07/22 Acute Care Nurse Practitioner Relationship Specialty Start Date End Date Sandro Kerr MD [address] [place] [address] PCP - General Family Medicine 01/04/23 João Villa MD [address] [place] [address] Surgeon Urology 05/17/22 Julianne Joya DO [address] [place] [address] Surgeon Urology 06/07/22 Acute Care Nurse Practitioner Relationship Specialty Start Date End Date Sandro Kerr MD [address] [place] [address] PCP - General Family Medicine 01/04/23 João Villa MD [address] [place] [address] Surgeon Urology 05/17/22 Julianne Joya DO [address] [place] [address] Surgeon Urology 06/07/22 Acute Care Nurse Practitioner Relationship Specialty Start Date End Date Sandro Kerr MD [address] [place] [address] PCP - General Family Medicine 01/04/23 João Villa MD [address] [place] [address] Surgeon Urology 05/17/22 Julianne Joya DO [address] [place] [address] Surgeon Urology 06/07/22 Acute Care Nurse Practitioner Relationship Specialty Start Date End Date Sandro Kerr MD [address] [place] [address] PCP - General Family Medicine 01/04/23 João Villa MD [address] [place] [address] Surgeon Urology 05/17/22 Julianne Joya DO [address] [place] [address] Surgeon Urology 06/07/22 Team Status: Inactive Member Role Status Dates Gonzalez Yañez MD Attending Provider, Emergency Provid er Active No Primary Care Physician Primary Care Provider Active Team Status: Inactive Member Role Status Dates No Primary Care Physician Primary Care Provider Active Dr. Suzanne Littlejohn MD Attending Provider, Referring Adam sifuentes Active Team Status: Inactive Member Role Status Dates No Primary Care Physician Primary Care Provider Active Dr. Guerrero Scott MD Emergency Provider Active Team Status: Inactive Member Role Status Dates No Primary Care Physician Primary Care Provider Active Dr. Guerrero Scott MD Attending Provider, Emergency Pro vider Active Acute Care Nurse Practitioner Relationship Specialty Start Date End Date Christina Francisco MD [address] [place] [address] PCP - General Family Medicine 07/11/23 João Villa MD [address] [place] [address] Surgeon Urology 05/17/22 Julianne Joya DO [address] [place] [address] Surgeon Urology 06/07/22 Acute Care Nurse Practitioner Relationship Specialty Start Date End Date No, Pcp [address] [place] [address] PCP - General 05/16/22 João Villa MD [address] [place] [address] Surgeon Urology 05/17/22 Julianne Joya DO [address] [place] [address] Surgeon Urology 06/07/22 Acute Care Nurse Practitioner Relationship Specialty Start Date End Date No, Pcp [address] [place] [address] PCP - General 05/16/22 João Villa MD [address] [place] [address] Surgeon Urology 05/17/22 Cortney, Julianne A, DO [address] [place] [address] Surgeon Urology 06/07/22 Acute Care Nurse Practitioner Relationship Specialty Start Date End Date No, Pcp [address] [place] [address] PCP - General 05/16/22 João Villa MD [address] [place] [address] Surgeon Urology 05/17/22 Julianne Joya, DO [address] [place] [address] Surgeon Urology 06/07/22 Acute Care Nurse Practitioner Relationship Specialty Start Date End Date No, Pcp [address] [place] [address] PCP - General 05/16/22 João Villa MD [address] [place] [address] Surgeon Urology 05/17/22 Julianne Joya, [address] [place] [address] Surgeon Urology 06/07/22 Acute Care Nurse Practitioner Relationship Specialty Start Date End Date No, Pcp [address] [place] [address] PCP - General 05/16/22 João Villa MD [address] [place] [address] Surgeon Urology 05/17/22 Jluianne Joya, DO [address] [place] [address] Surgeon Urology 06/07/22 Acute Care Nurse Practitioner Relationship Specialty Start Date End Date No, Pcp [address] [place] [address] PCP - General 05/16/22 João Villa MD [address] [place] [address] Surgeon Urology 05/17/22 Cortney, Julianne A, DO [address] [place] [address] Surgeon Urology 06/07/22 Acute Care Nurse Practitioner Relationship Specialty Start Date End Date No, Pcp [address] [place] [address] PCP - General 05/16/22 João Villa MD [address] [place] [address] Surgeon Urology 05/17/22 Julianne Joya, DO [address] [place] [address] Surgeon Urology 06/07/22 Acute Care Nurse Practitioner Relationship Specialty Start Date End Date No, Pcp [address] [place] [address] PCP - General 05/16/22 João Villa MD [address] [place] [address] Surgeon Urology 05/17/22 Julianne Joya, DO [address] [place] [address] Surgeon Urology 06/07/22 Acute Care Nurse Practitioner Relationship Specialty Start Date End Date No, Pcp [address] [place] [address] PCP - General 05/16/22 João Villa MD [address] [place] [address] Surgeon Urology 05/17/22 Julianne Joya, DO [address] [place] [address] Surgeon Urology 06/07/22 Acute Care Nurse Practitioner Relationship Specialty Start Date End Date No, Pcp 141 [place] [address] PCP - General 05/16/22 João Villa MD [address] [place] [address] Surgeon Urology 05/17/22 Julianne Joya A, DO [address] [place] [address] Surgeon Urology 06/07/22 Acute Care Nurse Practitioner Relationship Specialty Start Date End Date No, Pcp [address] [facility] [place] [address] PCP - General 05/16/22 João Villa MD [address] [place] [address] Surgeon Urology 05/17/22 Julianne Joya A, DO [address] [place] [address] Surgeon Urology 06/07/22 Acute Care Nurse Practitioner Relationship Specialty Start Date End Date No, Pcp [address] [place] [address] PCP - General 05/16/22 João Villa MD [address] [place] [address] Surgeon Urology 05/17/22 Julianne Joya A, DO [address] [place] [address] Surgeon Urology 06/07/22 Acute Care Nurse Practitioner Relationship Specialty Start Date End Date No, Pcp [address] [place] [address] PCP - General 05/16/22 João Villa MD [address] [place] [address] Surgeon Urology 05/17/22 Julianne Joya, DO [address] [place] [address] Surgeon Urology 06/07/22 Acute Care Nurse Practitioner Relationship Specialty Start Date End Date No, Pcp [address] [facility] [place] [address] PCP - General 05/16/22 João Villa MD [address] [place] [address] Surgeon Urology 05/17/22 Julianne Joya, DO [address] [place] [address] Surgeon Urology 06/07/22 Acute Care Nurse Practitioner Relationship Specialty Start Date End Date No, Pcp [address] [facility] [place] [address] PCP - General 05/16/22 João Villa MD [address] [place] [address] Surgeon Urology 05/17/22 Julianne Joya, DO [address] [place] [address] Surgeon Urology 06/07/22 Team Status: Active Member Role Status Azra Veras MD Primary Care Provider Active Team Status: Inactive Member Role Status Azra Veras MD Primary Care Provider Active St art: August 13, 2024 End: August 13, 2024 Michelle Veras MD Attending Provider Active Start : August 13, 2024 End: August 13, 2024 Michelle Veras MD Referring Provider Active Start : August 13, 2024 End: August 13, 2024 Team Status: Inactive Member Role Status Azra Veras MD Primary Care Provider Active St art: October 03, 2024 End: October 03, 2024 Michelle Veras MD Attending Provider Active Start : October 03, 2024 End: October 03, 2024 Michelle Veras MD Referring Provider Active Start : October 03, 2024 End: October 03, 2024 Team Status: Inactive Member Role Status Azra Veras MD Primary Care Provider Active St art: October 09, 2024 End: October 09, 2024 Dr. Suzanne Littlejohn MD Attending Provider Active Start: October 09, 2024 End: October 09, 2024 Dr. Suzanne Littlejohn MD Referring Provider Active Start: October 09, 2024 End: October 09, 2024 Team Status: Inactive Member Role Status Azra Veras MD Primary Care Provider Active St art: November 06, 2024 End: November 06, 2024 Michelle Veras MD Attending Provider Active Start : November 06, 2024 End: November 06, 2024 Michelle Veras MD Referring Provider Active Start : November 06, 2024 End: November 06, 2024 Team Status: Active Member Role/Relationship Status Azar Veras MD Primary care physician Active Team Status: Inactive Member Role/Relationship Status Azra Veras MD Primary care physician Active S tart: December 10, 2024 Dr. Suzanne Littlejohn MD Attending physician Active Start: December 10, 2024 Team Status: Inactive Member Role/Relationship Status Azra Veras MD Primary care physician Active S tart: February 27, 2025 End: February 27, 2025 Michelle Veras MD Attending physician Active Star t: February 27, 2025 End: February 27, 2025 Goals (unrecognized section and content) Goals may be documented in a n alternate sectionGoals may be documented in an alternate sectionGoals may be documented in an alternate sectionGoals may be documented in an alternate sectionGoals may be documented in an alternate sectionGoals may be documented in an alternate sectionGoals may be documented in an alternate sectionGoals may be documented in an alternate section Scheduled Active and Recently Administ ered Medications (unrecognized section and content) Medication Order 07/04/2022 07/05/2022 07/06/2022 acetaminophen (Tylenol) tablet 1,000 mg (COMPLETED) 1,000 mg, Oral, Once, On Mon07/06/22 at 0845, For 1 dose, Preprocedure, Maximum dose of acetaminophen is 4000 mg from all sources in 24 hours. Do not administer if patient has taken tylenol <4 hours earlier. Do not give if contraindicated ie. patient has active liver disease or cirrhosis. 0926 (Given - Provid er: Sana Valdez MA) ceFAZolin in dextrose 4% (Ancef) IVPB 2,000 mg 2,000 mg, IntraVENous, Administer over 30 Minutes, Once, On Mon07/06/22 at 0845, For 1 dose, Preprocedure, premix bag, Suspected Indication (Select all that apply): Surgical Prophylaxis 0845 (Canceled Entry - Provider: Automatic Discharge Provider - Comment: Automatically canceled at discontinue of medication order) famotidine (Pepcid) tablet 20 mg (COMPLETED) 20 mg, Oral, Once, On Mon07/06/22 at 0845, For 1 dose, Preprocedure 0926 (Given - Provid er: Sana Valdez MA) sodium chloride 0.9 % bolus 500 mL 500 mL, IntraVENous, at 1,000 mL/hr, Administer over 0.5 Hours, Once, On Mon07/06/22 at 1415, For 1 dose, Recovery (only), Indications: Anti-nausea 1415 (Canceled Entry - Provider: Automatic Discharge Provider - Comment: Automatically canceled at discontinue of medication order) sodium chloride 0.9% (NS) flush 10 mL 10 mL, IntraVENous, Every 12 hours scheduled (2 times per day), First dose on Mon07/06/22 at 0900, Preprocedure 0900 (Canceled Entry - Provider: Automatic Discharge Provider - Comment: Automatically canceled at discontinue of medication order) sodium chloride 0.9% (NS) flush 5-40 mL 5-40 mL, IntraVENous, Every 12 hours, First dose on Mon07/06/22 at 0845, Preprocedure, For Line Patency: Peripheral IV = 5 mL; Midline or Central Line = 10 mL/lumen. If following IV push medication, administer flush at same rate as the IV push. Flush volume is determined by type of infusion therapy being given. For non-viscous solutions use: Peripheral IV = 5 mL Midline or Central Line = 10 mL/lumen For viscous solutions (i.e. blood components, parenteral nutrition, contrast media, or after obtaining blood sample) use: Peripheral IV = 10 mL Midline or Central Line = 20 mL/lumen 0845 (Canceled Entry - Provider: Automatic Discharge Provider - Comment: Automatically canceled at discontinue of medication order) Continuous Medication Order 07/04/2022 07/05/2022 07/06/2022 lactated Ringer's infusion 50 mL/hr, IntraVENous, Continuous, Starting on Mon07/06/22 at 0845, Preprocedure, Upon admission to sameday - please start iv if patient does not have iv access. Use 500ml NS for patients on dialysis. 1250 (New Bag - Prov ider: ANGEL Gomez CRNA)1352 (Anesthesia Volume Adjustment - Provider: Julián Silvio, DRY CELL TESTER - ELECTRONIC GAMING DEVICE SUPERVISOR)1355 (Stopped - Provider: Julián Anguiano, ANGEL - ELECTRONIC GAMING DEVICE SUPERVISOR) lactated ringers infusion 125 mL/hr, IntraVENous, Continuous, Starting on Mon07/06/22 at 1415, Recovery (only) 1415 (Canceled Entry - Provider: Automatic Discharge Provider - Comment: Automatically canceled at discontinue of medication order) PRN Medication Order 07/04/2022 07/05/2022 07/06/2022 diphenhydrAMINE (BENADryl) injection 12.5 mg 12.5 mg, IntraVENous, Once PRN, itching, Starting on Mon07/06/22 at 1403, For 1 dose, Recovery (only) hydrALAZINE (Apresoline) injection 5 mg(Linked Group 1) 5 mg, IntraVENous, Every 15 min PRN, high blood pressure, for SBP greater than 160 mmHg for 2 consecutive measurements taken from different sites, Starting on Mon07/06/22 at 1403, For 2 doses, Recovery (only), PRN for SBP > 160 for 2 consecutive measurements, and if one of the following conditions is met: 1) If IV labetolol is ineffective. 2) If HR is under 60. 3) If patient has heart block, COPD or asthma. If both labetalol and hydralazine ineffective, notify anesthesia provider. HYDROmorphone (Dilaudid) injection 0.25 mg 0.25 mg, IntraVENous, Every 5 min PRN, moderate pain (4-6), Starting on Mon07/06/22 at 1403, For 4 doses, Recovery (only), Phase I and Phase II- Initial therapy for moderate pain (4-6). Restricted to a 90 minute time frame starting when the patient can verbally state their pain score. If after 2 doses the pain score does not decrease by more than one point, then call the provider. If oral meds are utilized, do not return to initial therapy medications. HYDROmorphone (Dilaudid) injection 0.5 mg 0.5 mg, IntraVENous, Every 5 min PRN, severe pain (7-10), Starting on Mon07/06/22 at 1403, For 4 doses, Recovery (only), Phase I and Phase II- Initial therapy for moderate pain (4-6). Restricted to a 90 minute time frame starting when the patient can verbally state their pain score. If after 2 doses the pain score does not decrease by more than one point, then call the provider. If oral meds are utilized, do not return to initial therapy medications. iopamidol (Isovue-300) 61 % injection (CANCELED) As needed, Starting on Mon07/06/22 at 1307, Intraprocedure 1307 (Given - Provid er: Julianne Joya, DO - Comment: Contrast) labetalol (Normodyne,Trandate) injection 5 mg(Linked Group 1) 5 mg, IntraVENous, Every 10 min PRN, high blood pressure, for SBP greater than 160 mmHg for 2 consecutive measurements taken from different sites., Starting on Mon07/06/22 at 1403, For 2 doses, Recovery (only), PRN for SBP >160 for 2 consecutive measurements, if HR is 60 or greater. If beta kimberly is contraindicated (HR less than 60, heart block, COPD or asthma) use hydralazine IV order. LORazepam (Ativan) injection 0.5 mg 0.5 mg, IntraVENous, Once PRN, for anxiety or muscle spasm., Starting on Mon07/06/22 at 1403, For 1 dose, Recovery (only), For IV doses dilute dose with 1ml NS. metoclopramide (Reglan) injection 5 mg 5 mg, IntraVENous, Once PRN, nausea, Starting on Mon07/06/22 at 1403, For 1 dose, Recovery (only), Secondary antiemetic therapy. Notify anesthesia provider before administration. ondansetron (Zofran) injection 4 mg 4 mg, IntraVENous, Once PRN, nausea, Starting on Mon07/06/22 at 1403, For 1 dose, Recovery (only), Initial antiemetic therapy. oxyCODONE (Roxicodone) immediate release tablet 10 mg(Linked Group 2) 10 mg, Oral, PRN, severe pain (7-10), Starting on Mon07/06/22 at 1403, For 1 dose, Recovery (only), PHASE II oxyCODONE (Roxicodone) immediate release tablet 5 mg(Linked Group 2) 5 mg, Oral, PRN, moderate pain (4-6), Starting on Mon07/06/22 at 1403, For 1 dose, Recovery (only), PHASE II sodium chloride 0.9 % infusion 5-250 mL/hr, IntraVENous, PRN, if patient receiving piggyback infusions and maintenance fluids are not ordered OR KVO fluids to protect IV site / prevent frequent line interruptions / long duration, Starting on Mon07/06/22 at 0834, Preprocedure, For piggyback infusion, administer at same rate as piggyback for a total of 25 mL. Enter 25 mL into dose field and piggyback rate into rate field of order. If piggyback is infusing at a rate less than 100 mL/hr, enter 25 mL into dose field and 100 mL/hr into rate field of order. For KVO fluids, enter rate of 20 mL/hr or less into rate field of order. sodium chloride 0.9 % infusion 5-250 mL/hr, IntraVENous, PRN, if patient receiving piggyback infusions and maintenance fluids are not ordered OR KVO fluids to protect IV site / prevent frequent line interruptions/ long duration, Starting on Mon07/06/22 at 0834, Preprocedure, For piggyback infusion, administer at same rate as piggyback for a total of 25 mL. Enter 25 mL into dose field and piggyback rate into rate field of order. If piggyback is infusing at a rate less than 100 mL/hr, enter 25 mL into dose field and 100 mL/hr into rate field of order. For KVO fluids, enter rate of 20 mL/hr or less into rate field of order. sodium chloride 0.9% (NS) flush 10 mL 10 mL, IntraVENous, PRN, line care, Starting on Mon07/06/22 at 0834, Preprocedure, After every IV line use sodium chloride 0.9% (NS) flush 5-40 mL 5-40 mL, IntraVENous, PRN, line care, After every IV line use, Starting on Mon07/06/22 at 0834, Preprocedure, For Line Patency: Peripheral IV = 5 mL; Midline or Central Line = 10 mL/lumen. If following IV push medication, administer flush at same rate as the IV push. Flush volume is determined by type of infusion therapy being given. For non-viscous solutions use: Peripheral IV = 5 mL Midline or Central Line = 10 mL/lumen For viscous solutions (i.e. blood components, parenteral nutrition, contrast media, or after obtaining blood sample) use: Peripheral IV = 10 mL Midline or Central Line = 20 mL/lumen sterile water irrigation solution (CANCELED) As needed, Starting on Mon07/06/22 at 1230, Intraprocedure 1230 (Canceled Entry - Provider: Julianne Joya DO)1306 (Given - Provider: Julianne Joya DO) Linked Groups Order Group 1: labetalol (Normodyne,Trandate) injection 5 mgJump to med 5 mg, IntraVENous, Every 10 min PRN, high blood pressure, for SBP greater than 160 mmHg for 2 consecutive measurements taken from different sites., Starting on Mon07/06/22 at 1403, For 2 doses, Recovery (only)
PRN for SBP >160 for 2 consecutive measurements, if HR is 60 or greater. If beta kimberly is contraindicated (HR less than 60, heart block, COPD or asthma) use hydralazine IV order.
Or hydrALAZINE (Apresoline) injection 5 mgJump to med 5 mg, IntraVENous, Every 15 min PRN, high blood pressure, for SBP greater than 160 mmHg for 2 consecutive measurements taken from different sites, Starting on Mon07/06/22 at 1403, For 2 doses, Recovery (only)
PRN for SBP > 160 for 2 consecutive measurements, and if one of the following conditions is met: 1) If IV labetolol is ineffective. 2) If HR is under 60. 3) If patient has heart block, COPD or asthma. If both labetalol and hydralazine ineffective, notify anesthesia provider.
Group 2: oxyCODONE (Roxicodone) immediate release tablet 5 mgJump to med 5 mg, Oral, PRN, moderate pain (4-6), Starting on Mon07/06/22 at 1403, For 1 dose, Recovery (only)
PHASE II
Or oxyCODONE (Roxicodone) immediate release tablet 10 mgJump to med 10 mg, Oral, PRN, severe pain (7-10), Starting on Mon07/06/22 at 1403, For 1 dose, Recovery (only)
PHASE II
Scheduled Medication Order 07/21/2022 07/22/2022 07/23/2022 calcium carbonate-cholecalciferol (Oyster Shell) 250-3.125 MG-MCG per tablet 1 tablet 1 tablet, Oral, 2 times daily, First dose on Mon07/19/22 at 1445 0858 (Given - Provider: Toya Brewer RN)2002 (Given - Provider: Cindy Santizo LPN) 08 (Given - Provider: Toya Brewer RN)2047 (Given - Provider: Elena Landa RN) 1009 (Given - Provider: Silvana Waters, RN) ceFAZolin (Ancef) 1,000 mg in dextrose 5 % 50 mL IVPB (COMPLETED) 1,000 mg, IntraVENous, at 100 mL/hr, Administer over 30 Minutes, Every 8 hours, First dose on Mon07/20/22 at 1200, For 1 day, Suspected Indication (Select all that apply): Urinary Tract Infection 0423 (New Bag - Provider: Toya Cardenas RN)0455 (Stopped - Provider: Toya Cardenas RN) cephalexin (Keflex) capsule 1,000 mg 1,000 mg, Oral, 3 times daily, First dose on Mon07/21/22 at 1400, Suspected Indication (Select all that apply): Urinary Tract Infection 1345 (Given - Provider: Toya Brewer RN)2002 (Given - Provider: Cindy Santizo LPN) 0807 (Given - Provider: Toya Brewer RN)1542 (Given - Provider: Toya Brewer RN)2047 (Given - Provider: Elena Landa RN) 1009 (Given - Provider: Silvana Waters RN)1350 (Given - Provider: Silvana Waters, RN) enoxaparin (Lovenox) syringe 40 mg 40 mg, SubCUTAneous, Every 24 hours scheduled (Daily), First dose on Mon07/18/22 at 0900, Indication of Use: Prophylaxis-DVT/PE, Indications: Prophylaxis of Venous Thromboembolism 0858 (Given - Provider: Toya Brewer RN) 08 (Given - Provider: Toya Brewer RN) 100 (Given - Provider: Silvana Waters, RN) ferrous sulfate tablet 325 mg 325 mg, Oral, Daily with breakfast, First dose on Mon07/18/22 at 0800 0858 (Given - Provider: Toya Brewer RN) 0807 (Given - Provider: Toya Brewer RN) 1009 (Given - Provider: Silvana Waters, RN) metoprolol succinate XL (Toprol-XL) 24 hr tablet 50 mg 50 mg, Oral, Daily, First dose on Mon07/20/22 at 0900, Do not crush or chew. 0858 (Given - Provider: Toya Brewer RN) 0807 (Given - Provider: Toya Brewer RN) 1009 (Given - Provider: Silvana Waters, RN) potassium chloride CR (Klor-Con M20) ER tablet 20 mEq (COMPLETED) 20 mEq, Oral, Once, On 07/23/22 at 1000, For 1 dose, Best given with food and plenty of water to minimize gastric irritation. Do not crush or chew. 1009 (Given - Provider: Silvana Waters, GAMAL) potassium chloride CR (Klor-Con M20) ER tablet 40 mEq (COMPLETED) 40 mEq, Oral, Once, On Elizabeth 07/21/22 at 0745, For 1 dose, Best given with food and plenty of water to minimize gastric irritation. Do not crush or chew. 0858 (Given - Provider: Toya Brewer RN) tamsulosin (Flomax) 24 hr capsule 0.4 mg 0.4 mg, Oral, Daily, First dose on 07/18/22 at 0900, Do not crush, chew, or split. 0858 (Given - Provider: Toya Brewer RN) 0807 (Given - Provider: Toya Brewer RN) 1009 (Given - Provider: Silvana Waters, RN) Continuous Medication Order 07/21/2022 07/22/2022 07/23/2022 sodium chloride 0.9 % infusion 100 mL/hr, IntraVENous, Continuous, Starting on Mon07/17/22 at 2315 0102 (New Bag - Provider: Toya Cardenas, RN) PRN Medication Order 07/21/2022 07/22/2022 07/23/2022 acetaminophen (Tylenol) suppository 650 mg(Linked Group 1) 650 mg, Rectal, Every 6 hours PRN, mild pain (1-3), fever, For temp greater than 100.4 F (38 C), Starting on 07/17/22 at 2308, Administer if oral route cannot be used. Maximum dose of acetaminophen is 4000 mg from all sources in 24 hours. acetaminophen (Tylenol) tablet 650 mg(Linked Group 1) 650 mg, Oral, Every 6 hours PRN, mild pain (1-3), fever, For temp greater than 100.4 F (38 C), Starting on 07/17/22 at 2308, Maximum dose of acetaminophen is 4000 mg from all sources in 24 hours. HYDROmorphone (Dilaudid) injection 0.5 mg 0.5 mg, IntraVENous, Every 4 hours PRN, severe pain (7-10), Starting on 07/17/22 at 2239, If oral and IV narcotics ordered, use oral first and only use IV if oral is ineffective or cannot take oral. Do Not give oral and IV within 1 hour of each other unless specifically ordered. loperamide (Imodium) capsule 2 mg 2 mg, Oral, 4 times daily PRN, diarrhea, Starting on Mon07/22/22 at 1011, After each loose stool melatonin tablet 3 mg 3 mg, Oral, Nightly PRN, sleep, Starting on 07/18/22 at 0745 2002 (Given - Provider: Cindy Santizo LPN) ondansetron (Zofran) injection 4 mg(Linked Group 2) 4 mg, IntraVENous, Every 6 hours PRN, nausea, vomiting, Starting on 07/17/22 at 2308, 1st Line. Give IV if patient is unable to take orally. If inadequate response within 60 minutes, proceed to next-line agent or contact provider if no further options ordered. ondansetron ODT (Zofran-ODT) disintegrating tablet 4 mg(Linked Group 2) 4 mg, Oral, Every 8 hours PRN, nausea, vomiting, Starting on 07/17/22 at 2308, 1st Line. If inadequate response within 60 minutes, proceed to next-line agent or contact provider if no further options ordered. Patient should allow tablet to dissolve on tongue. Do not remove from blister pack until just before administering. polyethylene glycol (PEG) 3350 (Miralax) packet 17 g 17 g, Oral, Daily PRN, constipation, Starting on 07/17/22 at 2308, 1st line for treatment of constipation - give scheduled if no bowel movement in past 24 hours. Linked Groups Order Group 1: acetaminophen (Tylenol) tablet 650 mgJump to med 650 mg, Oral, Every 6 hours PRN, mild pain (1-3), fever, For temp greater than 100.4 F (38 C), Starting on 07/17/22 at 2308
Maximum dose of acetaminophen is 4000 mg from all sources in 24 hours.
Or acetaminophen (Tylenol) suppository 650 mgJump to med 650 mg, Rectal, Every 6 hours PRN, mild pain (1-3), fever, For temp greater than 100.4 F (38 C), Starting on 07/17/22 at 2308
Administer if oral route cannot be used. Maximum dose of acetaminophen is 4000 mg from all sources in 24 hours.
Group 2: ondansetron ODT (Zofran-ODT) disintegrating tablet 4 mgJump to med 4 mg, Oral, Every 8 hours PRN, nausea, vomiting, Starting on 07/17/22 at 2308
1st Line. If inadequate response within 60 minutes, proceed to next-line agent or contact provider if no further options ordered. Patient should allow tablet to dissolve on tongue. Do not remove from blister pack until just before administering.
Or ondansetron (Zofran) injection 4 mgJump to med 4 mg, IntraVENous, Every 6 hours PRN, nausea, vomiting, Starting on 07/17/22 at 2308
1st Line. Give IV if patient is unable to take orally. If inadequate response within 60 minutes, proceed to next-line agent or contact provider if no further options ordered.
Scheduled Medication Order 08/14/2022 08/15/2022 08/16/2022 acetaminophen (Tylenol) tablet 1,000 mg (COMPLETED) 1,000 mg, Oral, Once, On Mon08/16/22 at 1215, For 1 dose, Preprocedure, Maximum dose of acetaminophen is 4000 mg from all sources in 24 hours. Do not administer if patient has taken tylenol <4 hours earlier. Do not give if contraindicated ie. patient has active liver disease or cirrhosis. 1227 (Given - Provid er: Venus Zurita RN) ceFAZolin Sodium 2,000 mg in sodium chloride 0.9 % 100 mL IVPB (COMPLETED) 2,000 mg, IntraVENous, at 200 mL/hr, Administer over 30 Minutes, Once, On e 08/16/22 at 1215, For 1 dose, Preprocedure, Mini-Bag Plus bag, Suspected Indication (Select all that apply): Surgical Prophylaxis 1449 (New Bag - Prov ider: Kiley Arriola APRN - ELECTRONIC GAMING DEVICE SUPERVISOR)1547 (Stopped - Provider: ANGEL Villegas CRNA) famotidine (Pepcid) tablet 20 mg (COMPLETED) 20 mg, Oral, Once, On Mon08/16/22 at 1215, For 1 dose, Preprocedure 1227 (Given - Provid er: Venus Zurita RN) sodium chloride 0.9% (NS) flush 10 mL 10 mL, IntraVENous, Every 12 hours scheduled (2 times per day), First dose on Mon08/16/22 at 2100, Preprocedure sodium chloride 0.9% (NS) flush 5-40 mL 5-40 mL, IntraVENous, Every 12 hours, First dose on Mon08/16/22 at 1215, Preprocedure, For Line Patency: Peripheral IV = 5 mL; Midline or Central Line = 10 mL/lumen. If following IV push medication, administer flush at same rate as the IV push. Flush volume is determined by type of infusion therapy being given. For non-viscous solutions use: Peripheral IV = 5 mL Midline or Central Line = 10 mL/lumen For viscous solutions (i.e. blood components, parenteral nutrition, contrast media, or after obtaining blood sample) use: Peripheral IV = 10 mL Midline or Central Line = 20 mL/lumen 1215 (Canceled Entry - Provider: Automatic Discharge Provider - Comment: Automatically canceled at discontinue of medication order) Continuous Medication Order 08/14/2022 08/15/2022 08/16/2022 lactated Ringer's (LR) infusion 50 mL/hr, IntraVENous, Continuous, Starting on Mon08/16/22 at 1215, Preprocedure, Upon admission to sameday - please start iv if patient does not have iv access. Use 500ml NS for patients on dialysis. 1227 (New Bag - Prov ider: Venus Zurita RN)1440 (Continued by Anesthesia - Provider: Kiley Arriola APRN - RASHMI)1547 (Stopped - Provider: ANGEL Villegas CRNA) PRN Medication Order 08/14/2022 08/15/2022 08/16/2022 ALPRAZolam (Xanax) disintegrating tablet 0.25 mg 0.25 mg, Oral, PRN, anxiety, Starting on Mon08/16/22 at 1203, For 1 dose, Preprocedure, Using dry hands, place tablet on top of tongue and allow to disintegrate. Administration with water is not necessary. iopamidol (Isovue-300) 61 % injection (CANCELED) As needed, Starting on Mon08/16/22 at 1511, Intraprocedure 1511 (Given - Provid er: Julianne Joya, DO - Comment: intravesicle) sodium chloride 0.9 % infusion 5-250 mL/hr, IntraVENous, PRN, if patient receiving piggyback infusions and maintenance fluids are not ordered OR KVO fluids to protect IV site / prevent frequent line interruptions / long duration, Starting on Mon08/16/22 at 1203, Preprocedure, For piggyback infusion, administer at same rate as piggyback for a total of 25 mL. Enter 25 mL into dose field and piggyback rate into rate field of order. If piggyback is infusing at a rate less than 100 mL/hr, enter 25 mL into dose field and 100 mL/hr into rate field of order. For KVO fluids, enter rate of 20 mL/hr or less into rate field of order. sodium chloride 0.9 % infusion 5-250 mL/hr, IntraVENous, PRN, if patient receiving piggyback infusions and maintenance fluids are not ordered OR KVO fluids to protect IV site / prevent frequent line interruptions/ long duration, Starting on Mon08/16/22 at 1203, Preprocedure, For piggyback infusion, administer at same rate as piggyback for a total of 25 mL. Enter 25 mL into dose field and piggyback rate into rate field of order. If piggyback is infusing at a rate less than 100 mL/hr, enter 25 mL into dose field and 100 mL/hr into rate field of order. For KVO fluids, enter rate of 20 mL/hr or less into rate field of order. sodium chloride 0.9 % irrigation solution (CANCELED) As needed, Starting on Mon08/16/22 at 1506, Intraprocedure 1506 (Given - Provid er: Julianne Joya DO) sodium chloride 0.9% (NS) flush 10 mL 10 mL, IntraVENous, PRN, line care, Starting on Mon08/16/22 at 1203, Preprocedure, After every IV line use sodium chloride 0.9% (NS) flush 5-40 mL 5-40 mL, IntraVENous, PRN, line care, After every IV line use, Starting on Mon08/16/22 at 1203, Preprocedure, For Line Patency: Peripheral IV = 5 mL; Midline or Central Line = 10 mL/lumen. If following IV push medication, administer flush at same rate as the IV push. Flush volume is determined by type of infusion therapy being given. For non-viscous solutions use: Peripheral IV = 5 mL Midline or Central Line = 10 mL/lumen For viscous solutions (i.e. blood components, parenteral nutrition, contrast media, or after obtaining blood sample) use: Peripheral IV = 10 mL Midline or Central Line = 20 mL/lumen sterile water irrigation solution (CANCELED) As needed, Starting on Mon08/16/22 at 1450, Intraprocedure 1450 (Given - Provid er: Jonathan Adler MD) FOR RECORDS PERTAINING TO PATIENTS WHO ARE [...] BE BASED ON THE PRIMARY CLINICAL RECORDS. [facility]. provides no warranty or guarantee of the accuracy or completeness of information in this document.
--- NOTE | 2025-06-08 17:55 | RAD_ITS ---
PROCEDURE: ANKLE MIN 3 VIEWS 06/08/2025 REASON FOR EXAM: LEFT ANKLE PAIN TECHNIQUE: Procedure Code: RADANK Modality: DX Procedure: ANKLE MIN 3 VIEWS Laterality: Left FINDINGS: There no acute fractures. There are no dislocations. The joint spaces are well- maintained and the articular surfaces are intact. Bony mineralization is normal. There are no periosteal reactions or aggressive osseous lesions. There are no soft tissue irregularities. RAD/Ankle min 3 Views IMPRESSION: No acute osseous findings. Reading Location: [id number]
== END 2025-06-08 18:50 | disposition home or self-care (01) ==
PROVIDERS: Emergency Provider Emergency Medicine; PCP Family Medicine; Visit Provider Emergency Medicine
DX: M79.662 Pain in left lower leg (principal); M25.572 Pain in left ankle and joints of left foot
CPT/HCPCS: 73610; 99283

== ENCOUNTER → 2025-06-09 | Outpatient (CLI) | payer MEDICARE, SELFPAY ==
--- NOTE | 2025-06-09 12:49 | VDLE_ITS ---
Reason For Study Reason For Study: LLE Swelling RIGHT LEFT CFV is compressible, spontaneous, phasic, competent GSV is normal. and demonstrates normal augmentation. CFV is compressible, spontaneous, phasic, competent, Procedure and demonstrates normal augmentation. This is a venous duplex using B-mode, color flow and FV is compressible, spontaneous, phasic, competent spectral Doppler. and demonstrates normal augmentation. Exam performed in department. POP V is compressible, phasic, and INCOMPETENT for The exam was diagnostic. greater than 1.0 second. T/P Trunk is compressible. PTV is compressible. LT PerV is compressible. SSV at junction is INCOMPETENT for greater than 0.5 seconds and measures 1.07 x 1.40 cm. SSV mid calf is INCOMPETENT for greater than 0.5 seconds and measures 0.32 x 0.28 cm. VL/Venous Duplex US, Unilateral Interpretation Summary Deep veins of the left lower extremity are patent and compressible segmentally. There is no evidence of left lower extremity deep vein thrombosis. The left great saphenous vein appears patent an d compressible segmentally. Positive for reflux in the left popliteal vein, small saphenous vein Ordering Physician: Lasha Martinez Referring Physician: Lasha Martinez Performed By: Prasad Ricks, RVT
== END | disposition home or self-care (01) ==
LOC: CVS 12:45
PROVIDERS: PCP Family Medicine; Referring Provider Emergency Medicine; Visit Provider Emergency Medicine
DX: R22.42 Localized swelling, mass and lump, left lower limb (principal)
CPT/HCPCS: 93971